=== PATIENT | male | born 1955 | race Caucasian/White ===

== ENCOUNTER 2021-09-26 14:01 | Outpatient (CLI) | payer MEDICARE, MEDICAID, SELFPAY ==
[2021-09-26 11:53] LABS: Basophils Percent Auto 0.6 % (0.2-1.2); Eosinophils Absolute Auto 0.1 K/mm3 (0-0.3); Eosinophils Percent Auto 1.7 % (0-4.4); Hematocrit 46.4 % (42.0-52.0); Hemoglobin 15.5 g/dL (14.0-18.0); Immature Granulocyte Absolute 0.01 K/mm3 (0.00-0.031); Immature Granulocyte Percent A 0.2 % (0-0.5); Immature Platelet Fraction Pct 4.3 % (0.9-11.2); Lymphocytes Percent Auto 21.5 % (18.3-44.2); Mean Corpuscular HGB Conc 33.4 g/dl (32-36); Mean Corpuscular Hemoglobin 30.1 pg (26-34); Mean Corpuscular Volume 90.1 fl (80-100); Mean Platelet Volume 10.6 fl (7.4-10.4); Monocytes Absolute Auto 0.5 K/mm3 (0.1-0.6); Monocytes Percent Auto 11.2 % (2.6-8.5); Neutrophils Percent Auto 64.8 % (45.5-73.1); Platelet Count Result 107 k/mm3 (150-375); Red Blood Count 5.15 M/mm3 (4.6-6.20); Red Cell Distribution Width 15.7 % (11.5-14.5); White Blood Count 4.7 K/mm3 (4.5-10.0)
[2021-09-26 12:35] LABS: Alanine Aminotransferase 54 U/L (4-50); Albumin Level 4.5 g/dL (3.5-5.1); Alkaline Phosphatase 102 U/L (38-126); Anion Gap 9 mmol/L (8-16); Aspartate Amino Transferase 46 U/L (17-59); Bilirubin,Total 0.9 mg/dL (0.2-1.3); Blood Urea Nitrogen 13 mg/dL (9-20); Calcium 9.2 mg/dL (8.4-10.2); Carbon Dioxide 26 mmol/L (22-30); Chloride 97 mmol/L (98-107); Estimated Glomerular Filt Rate > 60; Glucose 328 mg/dL (65-110); Potassium 4.4 mmol/L (3.4-5.0); Sodium 132 mmol/L (137-145)
[2021-09-26 13:09] LABS: Iron 104 ug/dL (49-181)
[2021-09-26 13:18] LABS: Percent Iron Saturation 22 % (20-50)
[2021-09-26 13:41] LABS: Folic Acid > 20.0 ng/mL (2.76->20)
[2021-09-30 10:07] LABS: Reference Lab Test Result Negative
== END 2021-09-26 14:02 | disposition home or self-care (01) ==
PROVIDERS: PCP Family Medicine; Visit Provider Internal Medicine Hematology & Oncology
DX: D69.59 Other secondary thrombocytopenia (principal)
CPT/HCPCS: 36415; 80053; 82607; 82728; 82746; 83540; 83550; 85025; 85055; 86023

== ENCOUNTER 2021-10-01 15:30 | Outpatient (CLI) | payer MEDICARE, MEDICAID, SELFPAY ==
--- NOTE | ~2021-10-01 | CT_ITS ---
EXAMINATION: CT knee LT wo con DATE: 10/01/2021 16:11 INDICATION: Peripheral arterial occlusive disease. TECHNIQUE: Computed tomography (CT) of the left knee was performed without intravenous contrast. Auto mated exposure control and iterative reconstruction technique were employed. The dose-length product was 409.23 mGy-cm. COMPARISON: None FINDINGS: Bone alignment is normal. No fracture. There is moderate osteoarthritis of medial compartme nt and mild osteoarthritis of lateral and patellofemoral compartments. No knee joint effusion. 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 IMPRESSION: 1. 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 2. Moderate left knee osteoarthritis. Reviewed, dictated and finalized at location A. ERCIAL BAKER HELPER
== END 2021-10-01 15:31 | disposition home or self-care (01) ==
LOC: ANHIMG 15:38
PROVIDERS: PCP Emergency Medicine; Visit Provider Emergency Medicine
DX: I70.202 Unspecified atherosclerosis of native arteries of extremities, left leg (principal); M17.12 Unilateral primary osteoarthritis, left knee; I72.4 Aneurysm of artery of lower extremity
CPT/HCPCS: 73700

== ENCOUNTER 2021-10-11 12:23 | Outpatient (CLI) | payer MEDICARE, MEDICAID, SELFPAY ==
--- NOTE | ~2021-10-11 | US_ITS ---
EXAMINATION: US aorta [facility] scrn DATE: 10/11/2021 13:11 INDICATION: Abdominal aortic aneurysm screening. TECHNIQUE: Grayscale, color Doppler, and pulsed Doppler images of the aorta and common iliac arteries were obtained. COMPARISON: None. FINDINGS: The aorta is normal in caliber. The right common iliac artery is normal in caliber. The left common i liac artery is normal in caliber. IMPRESSION: 1. No abdominal aortic aneurysm. Reviewed, dictated and finalized at location A. RIG DRILLER
== END 2021-10-11 12:24 | disposition home or self-care (01) ==
PROVIDERS: PCP Emergency Medicine; Visit Provider Emergency Medicine
DX: I73.9 Peripheral vascular disease, unspecified (principal); Z13.6 Encounter for screening for cardiovascular disorders
CPT/HCPCS: 76706

== ENCOUNTER 2022-06-11 15:54 | Outpatient (CLI) | payer MEDICARE, OTHER, SELFPAY ==
[2022-06-11 16:12] LABS: Basophils Percent Auto 0.7 % (0.2-1.2); Eosinophils Absolute Auto 0.1 K/mm3 (0-0.3); Eosinophils Percent Auto 2.4 % (0-4.4); Hemoglobin 16.7 g/dL (14.0-18.0); Immature Granulocyte Absolute 0.01 K/mm3 (0.00-0.031); Immature Granulocyte Percent A 0.2 % (0-0.5); Lymphocytes Absolute Auto 1.91 K/mm3 (0.9-3.2); Lymphocytes Percent Auto 32.4 % (18.3-44.2); Mean Corpuscular HGB Conc 34.8 g/dl (32-36); Mean Corpuscular Hemoglobin 33.9 pg (26-34); Mean Corpuscular Volume 97.4 fl (80-100); Mean Platelet Volume 9.3 fl (7.4-10.4); Monocytes Absolute Auto 0.6 K/mm3 (0.1-0.6); Monocytes Percent Auto 9.5 % (2.6-8.5); Neutrophils Absolute Auto 3.2 K/mm3 (1.3-6.7); Neutrophils Percent Auto 54.8 % (45.5-73.1); Platelet Count Result 141 k/mm3 (150-375); Red Blood Count 4.93 M/mm3 (4.6-6.20); Red Cell Distribution Width 14.6 % (11.5-14.5); White Blood Count 5.9 K/mm3 (4.5-10.0)
== END 2022-06-11 15:55 | disposition home or self-care (01) ==
LOC: ANHLAB 15:58
PROVIDERS: PCP Family Medicine; Visit Provider Internal Medicine Hematology & Oncology
DX: D69.59 Other secondary thrombocytopenia (principal)
CPT/HCPCS: 36415; 85025

== ENCOUNTER 2022-07-21 17:31 | Emergency (ER) | payer MEDICARE, MEDICAID, SELFPAY ==
--- NOTE | ~2022-07-21 | CT_ITS ---
EXAMINATION: CTA chest PE protocol DATE: 07/21/2022 22:16 INDICATION: Shortness of breath, hemoptysis TECHNIQUE: Computed tomography angiography (CTA) of the chest was performed with 100 mL Omnipaque-350 intravenous contrast timed to evaluate the pulmonary arteries. Coronal maximum intensity projection 3D-reconstructions were created by the technologist. The dose-length product (DLP) was 891.42 mGy-cm. Automated exposure control and iterative reconstruction technique were employed. COMPARISON: None. FINDINGS: Lung parenchyma and airways: Right peripheral lower lobe scar. Mild motion artifact.. Pleura: Unremarkable. Thoracic inlet, axillae and chest wall: Multiple fractured sternotomy wires and lower sternal nonunio n. Thoracic aorta: Moderate arch calcification. Mediastinum: Normal. Heart and pericardium: Cardiomegaly. Prior CABG. Coronary artery calcifications: Moderate. Upper abdomen: Cirrhosis. Cholelithiasis. Bones: No acute osseous finding. Pulmonary arteries: Study quality: Adequate. No pulmonary emboli detected. IMPRESSION: No CT evidence of acute pulmonary embolus. Chronic and incidental findings detailed above. Reviewed, dictated and finalized at location K. IMPRESSION: No CT evidence of acute pulmonary embolus. Chronic and incidental findings deta iled above.
--- NOTE | ~2022-07-21 | XR_ITS ---
EXAMINATION: XR chest 1V portable Exam Date/Time: 07/21/2022 20:25 CDT HISTORY: shortness of breath, coughing up bloody sputum, COPD Comparison: None available. RESULT: Lines, tubes, and devices: Multiple fractured sternotomy wires in stable position. Mediastinal surgi eamon clips. Lungs and pleura: Clear. Cardiomediastinal silhouette: Stable. Other: No acute osseous or upper abdominal finding. IMPRESSION: No acute cardiopulmonary process. Reviewed, dictated and finalized at location K.
[2022-07-21 18:04] VITALS: BP 152/91; PULSE 59; RESP 18; TEMP 36.4; O2SAT 97
--- NOTE | 2022-07-21 19:08 | PC.NURSE ---
Pt called for room placement, no answer.
--- NOTE | 2022-07-21 19:51 | ECG_ITS ---
Measurements Intervals [place] Rate: 61 P: 52 AR: 225 QRS: -51 QRSD: 134 T: 119 QT: 445 QTc: 448 Interpretive Statements SINUS RHYTHM WITH FIRST DEGREE AV BLOCK WITH OCCASIONAL SUPRAVENTRICULAR PREMATURE COMPLEXES INTRAVENTRICULAR CONDUCTION DELAY Electronically Signed On 07-22-2022 8:52:06 CDT by Malik Bernstein M.D.
[2022-07-21 19:56] VITALS: PULSE 60; RESP 20; O2SAT 94
[2022-07-21] MEDS: ALBUTEROL SULFATE NEB 2.5 MG/3 ML INH 5 MG INHALATION (20:04)
[2022-07-21] MEDS: IPRATROPIUM BR 0.02% INH SOLN 0.5 MG/2.5 ML VIAL INHALATION (20:04)
[2022-07-21 20:09] VITALS: PULSE 65; RESP 17
[2022-07-21 20:11] LABS: Basophils Percent Auto 0.6 % (0.2-1.2); Eosinophils Absolute Auto 0.1 K/mm3 (0-0.3); Eosinophils Percent Auto 1.9 % (0-4.4); Hematocrit 50.2 % (42.0-52.0); Hemoglobin 17.3 g/dL (14.0-18.0); Immature Granulocyte Absolute 0.01 K/mm3 (0.00-0.031); Immature Granulocyte Percent A 0.2 % (0-0.5); Lymphocytes Absolute Auto 1.99 K/mm3 (0.9-3.2); Lymphocytes Percent Auto 31.1 % (18.3-44.2); Mean Corpuscular HGB Conc 34.5 g/dl (32-36); Mean Corpuscular Hemoglobin 34.1 pg (26-34); Mean Platelet Volume 9.6 fl (7.4-10.4); Monocytes Absolute Auto 0.7 K/mm3 (0.1-0.6); Monocytes Percent Auto 10.3 % (2.6-8.5); Neutrophils Absolute Auto 3.6 K/mm3 (1.3-6.7); Neutrophils Percent Auto 55.9 % (45.5-73.1); Platelet Count Result 123 k/mm3 (150-375); Red Blood Count 5.07 M/mm3 (4.6-6.20); Red Cell Distribution Width 14.4 % (11.5-14.5); White Blood Count 6.4 K/mm3 (4.5-10.0)
[2022-07-21 20:18] VITALS: PULSE 59; RESP 13
[2022-07-21 20:21] LABS: INR 1.1; Partial Thromboplastin Time 29.5 SECONDS (22.3-36.8); Prothrombin Time 13.3 Seconds (11.1-14.7)
[2022-07-21 20:22] LABS: Lactic Acid Reflex 0.9 mmol/L (0.7-2.0)
[2022-07-21 20:25] LABS: Alanine Aminotransferase 46 U/L (6-50); Albumin Level 4.3 g/dL (3.5-5.1); Alkaline Phosphatase 84 U/L (38-126); Anion Gap 10 mmol/L (8-16); Aspartate Amino Transferase 41 U/L (17-59); Bilirubin,Total 0.8 mg/dL (0.2-1.3); Blood Urea Nitrogen 18 mg/dL (9-20); Calcium 8.8 mg/dL (8.4-10.2); Carbon Dioxide 25 mmol/L (22-30); Chloride 100 mmol/L (98-107); Estimated CRCL calculation 88 ml/min; Estimated Glomerular Filt Rate > 60; Glucose 93 mg/dL (65-110); Magnesium 2.2 mg/dL (1.6-2.3); Potassium 4.4 mmol/L (3.4-5.0); Sodium 135 mmol/L (137-145)
--- NOTE | 2022-07-21 20:27 | ED.GENADULT ---
HPI - General Adult General Chief complaint: Upper Respiratory Infection Stated complaint: coughing up blood Time Seen by Provider: 07/21/22 19:40 History of Present Illness HPI narrative: Patient is a 67-year-old gentleman who presents the emergency department with chief complaint of hemoptysis. Patient reports that he was coughing today and had some bloody sputum whenever he coughed. The patient states that the has history of COPD reports that he also has history of thrombocytopenia. Patient states that he has had no fevers no chills reports that he is concerned because he is on antiplatelet medications. Patient reports that he has history of cardiac disease and has stents in his heart. Patient also reports that he has history of an enlarged prostate and has had difficulty urinating lately Related Data Allergies Allergy/AdvReac Type Severity Reaction Status Date / Time No Known Allergies Allergy Unverified 04/11/20 10:06 Review of Systems Review of Systems: A 10 system review of systems was completed on the patient and is negative except for what is stated in the HPI. Nursing and ancillary documentation was reviewed. 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) use of insulin Overweight (03/31/16) RUQ abdominal pain Tobacco use disorder Type 2 diabetes mellitus with hyperglycemia Surgical History Surgical History (Updated 07/21/22 @ 20:31 by Stepan Vegas MD) Hx of CABG Family History Family History (System 04/11/20 @ 10:06 by Shena Armas) Mother Family history of chronic obstructive pulmonary disease Patient's mother is Father Family history of chronic obstructive pulmonary disease Patient's father is Other Hypertension Social History Social History (System 04/11/20 @ 10:06 by Shena Armas) Smoking status: Current every day smoker Alcohol intake: current Exam Narrative: GENERAL: Well-appearing, well-nourished, and in no acute distress. HEAD: Normocephalic, atraumatic. EYES: PERRLA and EOMI. ENT: Nares clear, no rhinorrhea or epistaxis. Mucous membranes moist. NECK: Supple. CHEST: Clear to auscultation. No respiratory distress. HEART: Regular rate and rhythm. No murmur heard. Normal peripheral pulses. ABDOMEN: Soft, nontender, nondistended, normal active bowel sounds. EXTREMITIES: Normal range of motion. No edema. Patient is wearing cock-up wrist splints on bilateral wrist SKIN: Warm, dry, no rash. NEURO: No focal deficits. Alert and oriented x3. PSYCH: Normal mood and affect. Course Course Emergency Course: CT chest showed no evidence of PE. Given the patient has had bloody sputum and has had a productive cough with history of COPD the patient is felt to be high risk for bacterial bronchitis. The patient was started on doxycycline the patient was discharged home to follow-up with his primary provider. Vital Signs Vital signs: Vital Signs Temperature 36.4 C L 07/21/22 18:04 Pulse Rate 59 L 07/21/22 18:04 Respiratory Rate 18 07/21/22 18:04 Blood Pressure 152/91 H 07/21/22 18:04 Pulse Oximetry 97 07/21/22 18:04 Oxygen Delivery Room Air 07/21/22 18:04 Temperature 36.4 C L 07/21/22 18:04 Pulse Rate 59 L 07/21/22 20:18 Respiratory Rate 13 07/21/22 20:18 Blood Pressure 152/91 H 07/21/22 18:04 Pulse Oximetry 94 07/21/22 19:56 Oxygen Delivery Room Air 07/21/22 19:56 Medical Decision Making Vital Signs Vital Signs: Vital Signs Temperature 36.4 C L 07/21/22 1
[2022-07-21 20:37] LABS: NT Pro B Type Natriuretic Pept 309 pg/mL (5-100); Troponin I 0.019 ng/mL (0.000-0.034)
[2022-07-21 20:52] LABS: Influenza A QL RT-PCR Negative (Negative); Influenza B QL RT-PCR Negative (Negative); SARS-CoV-2 RNA PCR Negative
[2022-07-21 21:54] LABS: Procalcitonin 0.1 ng/mL
== END 2022-07-21 23:37 | disposition home or self-care (01) ==
PROVIDERS: Emergency Provider Emergency Medicine; PCP Emergency Medicine
DX: J20.8 Acute bronchitis due to other specified organisms (principal); J44.0 Chronic obstructive pulmonary disease with (acute) lower respiratory infection; Z20.822 Contact with and (suspected) exposure to COVID-19; J44.9 Chronic obstructive pulmonary disease, unspecified; I10 Essential (primary) hypertension; E11.9 Type 2 diabetes mellitus without complications; M10.9 Gout, unspecified; E66.3 Overweight; Z68.32 Body mass index [BMI] 32.0-32.9, adult; Z95.1 Presence of aortocoronary bypass graft; F17.200 Nicotine dependence, unspecified, uncomplicated; Z79.4 Long term (current) use of insulin; I44.0 Atrioventricular block, first degree; I49.3 Ventricular premature depolarization; I45.9 Conduction disorder, unspecified
CPT/HCPCS: 36415; 71045; 71275; 80053; 83605; 83735; 83880; 84145; 84484; 85025; 85610; 85730; 87502; 93005; 94640; 99284; C9803; Q9967; U0003; U0005

== ENCOUNTER 2022-10-14 16:45 | Outpatient (CLI) | payer MEDICARE, MEDICAID, SELFPAY ==
[2022-10-14 17:31] LABS: Alanine Aminotransferase 39 U/L (6-50); Albumin Level 4.5 g/dL (3.5-5.1); Alkaline Phosphatase 74 U/L (38-126); Anion Gap 4 mmol/L (8-16); Aspartate Amino Transferase 39 U/L (17-59); Bilirubin,Total 0.8 mg/dL (0.2-1.3); Blood Urea Nitrogen 16 mg/dL (9-20); Calcium 9.1 mg/dL (8.4-10.2); Carbon Dioxide 28 mmol/L (22-30); Chloride 101 mmol/L (98-107); Estimated Glomerular Filt Rate > 60; Glucose 141 mg/dL (65-110); Potassium 4.3 mmol/L (3.4-5.0); Sodium 133 mmol/L (137-145); Uric Acid 6.7 mg/dL (3.5-8.5)
== END 2022-10-14 16:46 | disposition home or self-care (01) ==
LOC: ANHLAB 16:50
PROVIDERS: PCP Emergency Medicine; Visit Provider Podiatrist Foot & Ankle Surgery
DX: M10.9 Gout, unspecified (principal)
CPT/HCPCS: 36415; 80053; 84550

== ENCOUNTER 2023-01-20 09:33 | Outpatient (CLI) | payer MEDICARE, MEDICAID, SELFPAY ==
[2023-01-20 09:54] LABS: Eosinophils Absolute Auto 0.1 K/mm3 (0-0.3); Eosinophils Percent Auto 1.8 % (0-4.4); Hematocrit 47.3 % (42.0-52.0); Hemoglobin 16.5 g/dL (14.0-18.0); Immature Granulocyte Absolute 0.01 K/mm3 (0.00-0.031); Immature Granulocyte Percent A 0.3 % (0-0.5); Lymphocytes Absolute Auto 1.21 K/mm3 (0.9-3.2); Lymphocytes Percent Auto 30.7 % (18.3-44.2); Mean Corpuscular HGB Conc 34.9 g/dl (32-36); Mean Corpuscular Volume 100.4 fl (80-100); Mean Platelet Volume 9.9 fl (7.4-10.4); Monocytes Absolute Auto 0.5 K/mm3 (0.1-0.6); Monocytes Percent Auto 12.4 % (2.6-8.5); Neutrophils Absolute Auto 2.1 K/mm3 (1.3-6.7); Neutrophils Percent Auto 53.8 % (45.5-73.1); Platelet Count Result 97 k/mm3 (150-375); Red Blood Count 4.71 M/mm3 (4.6-6.20); Red Cell Distribution Width 14.4 % (11.5-14.5); White Blood Count 3.9 K/mm3 (4.5-10.0)
[2023-01-20 10:04] LABS: Blood Urea Nitrogen 14 mg/dL (8-26); Carbon Dioxide 30 mmol/L (22-30); Chloride 100 mmol/L (98-109); Estimated Glomerular Filt Rate > 60; Glucose 161 mg/dL (70-105); Ionized Calcium (POC) 1.15 mmol/L (1.11-1.31); Sodium 138 mmol/L (138-146)
[2023-01-20 12:43] LABS: Alanine Aminotransferase 55 U/L (6-50); Alkaline Phosphatase 89 U/L (38-126); Anion Gap 4 mmol/L (8-16); Aspartate Amino Transferase 71 U/L (17-59); Bilirubin,Total 0.7 mg/dL (0.2-1.3); Calcium 8.6 mg/dL (8.4-10.2); Carbon Dioxide 29 mmol/L (22-30); Chloride 103 mmol/L (98-107); Estimated Glomerular Filt Rate > 60; Glucose 155 mg/dL (65-110); Potassium 4.1 mmol/L (3.4-5.0); Sodium 136 mmol/L (137-145)
[2023-01-20 12:59] LABS: Blood Urea Nitrogen 15 mg/dL (9-20)
== END 2023-01-20 09:34 | disposition home or self-care (01) ==
PROVIDERS: PCP Emergency Medicine; Visit Provider Internal Medicine Hematology & Oncology
DX: D69.59 Other secondary thrombocytopenia (principal)
CPT/HCPCS: 36415; 80047; 80053; 85025

== ENCOUNTER 2023-07-10 11:02 | Outpatient (CLI) | payer MEDICARE, MEDICAID, SELFPAY ==
[2023-07-10 11:27] LABS: Basophils Percent Auto 0.7 % (0.2-1.2); Eosinophils Absolute Auto 0.1 K/mm3 (0-0.3); Eosinophils Percent Auto 1.9 % (0-4.4); Hematocrit 49.5 % (42.0-52.0); Hemoglobin 17.2 g/dL (14.0-18.0); Immature Granulocyte Absolute 0.01 K/mm3 (0.00-0.031); Immature Granulocyte Percent A 0.2 % (0-0.5); Lymphocytes Absolute Auto 1.04 K/mm3 (0.9-3.2); Lymphocytes Percent Auto 24.1 % (18.3-44.2); Mean Corpuscular HGB Conc 34.7 g/dl (32-36); Mean Corpuscular Hemoglobin 33.8 pg (26-34); Mean Corpuscular Volume 97.2 fl (80-100); Monocytes Absolute Auto 0.5 K/mm3 (0.1-0.6); Monocytes Percent Auto 12.5 % (2.6-8.5); Neutrophils Absolute Auto 2.6 K/mm3 (1.3-6.7); Neutrophils Percent Auto 60.6 % (45.5-73.1); Platelet Count Result 116 k/mm3 (150-375); Red Blood Count 5.09 M/mm3 (4.6-6.20); Red Cell Distribution Width 13.8 % (11.5-14.5); White Blood Count 4.3 K/mm3 (4.5-10.0)
[2023-07-10 11:33] LABS: Blood Urea Nitrogen 18 mg/dL (8-26); Carbon Dioxide 25 mmol/L (22-30); Chloride 102 mmol/L (98-109); Estimated Glomerular Filt Rate > 60; Glucose 98 mg/dL (70-105); Ionized Calcium (POC) 1.14 mmol/L (1.11-1.31); Sodium 138 mmol/L (138-146)
== END 2023-07-10 11:03 | disposition home or self-care (01) ==
LOC: ANHLAB 11:05
PROVIDERS: PCP Emergency Medicine; Visit Provider Internal Medicine Hematology & Oncology
DX: D69.59 Other secondary thrombocytopenia (principal)
CPT/HCPCS: 36415; 80047; 85025

== ENCOUNTER 2023-09-17 14:35 | Outpatient (CLI) | payer MEDICARE, MEDICAID, SELFPAY ==
[2023-09-17 15:30] LABS: Alanine Aminotransferase 42 U/L (6-50); Albumin Level 4.3 g/dL (3.5-5.1); Alkaline Phosphatase 76 U/L (38-126); Anion Gap 8 mmol/L (8-16); Aspartate Amino Transferase 50 U/L (17-59); Blood Urea Nitrogen 15 mg/dL (9-20); Calcium 8.6 mg/dL (8.4-10.2); Carbon Dioxide 23 mmol/L (22-30); Chloride 101 mmol/L (98-107); Estimated Glomerular Filt Rate > 60; Glucose 137 mg/dL (65-110); Sodium 132 mmol/L (137-145); Uric Acid 3.8 mg/dL (3.5-8.5)
== END 2023-09-17 14:36 | disposition home or self-care (01) ==
LOC: ANHLAB 14:41
PROVIDERS: PCP Emergency Medicine; Visit Provider Podiatrist Foot & Ankle Surgery
DX: L85.1 Acquired keratosis [keratoderma] palmaris et plantaris (principal)
CPT/HCPCS: 36415; 80053; 84550

== ENCOUNTER 2023-10-06 13:14 | Outpatient (CLI) | payer MEDICARE, MEDICAID, SELFPAY ==
--- NOTE | ~2023-10-06 | CT_ITS ---
CT Scan of the Chest without Contrast: Clinical Indication: Lung cancer screening, personal history of nicotine dependence Technique: Contiguous sections were acquired throughout the chest without intravenous contrast. Dose reduction technique was used on this scan by utilizing automated exposure control and iterative recon struction technique. The dose-length product (DLP) was 392.51 mGy-cm. COMPARISON: 07/21/2022 Findings: There is no evidence of any significant mediastinal, hilar or axillary lymphadenopathy. The mediastin al soft tissues appear normal. There are atherosclerotic calcifications of the aorta. There is no evidence of pleural or pericardial effusion. Pleural-based nodule/density at the right lower lobe is similar to prior exam. Images through the upper abdomen reveal nodular contour of the liver, suggestive of cirrhotic change. Impression: Lung RADS 2: Benign appearance. 12 month follow-up CT scan is recommended. Cirrhosis of the liver. Reviewed, dictated and finalized at [facility]. L ELECTRIFICATION ENGINEER Impression: Lung RADS 2: Benign appearance. 12 month follow-up CT scan is recommended. Cirrhosis of the liver.
== END 2023-10-06 13:15 | disposition home or self-care (01) ==
PROVIDERS: PCP Emergency Medicine; Visit Provider Emergency Medicine
DX: Z12.2 Encounter for screening for malignant neoplasm of respiratory organs (principal); K74.60 Unspecified cirrhosis of liver; R91.8 Other nonspecific abnormal finding of lung field; Z87.891 Personal history of nicotine dependence
CPT/HCPCS: 71271

== ENCOUNTER 2024-01-04 00:39 | Day surgery (SDC) | payer MEDICARE, MEDICAID, SELFPAY ==
--- NOTE | 2023-12-23 11:44 | PC.NURSE ---
Spoke with patient regarding medication PLAVIX. Pt. verbalizes understanding that the last dose of PLAVIX is to be taken on 12/30/2023 and the Endoscopist will instruct them when to restart after the procedure. Patient states he is on Aspirin 81mg po daily and asked if he should stop it and I instructed him he does not have to hold Aspirin.
--- NOTE | 2024-01-01 10:09 | PC.NURSE ---
Patient called the office and left a message that he cannot afford to purchase the Miralax prep and would like the gallon Jug he had for his previous colonoscopy. I will send in prescription for Golytely to pts preferred pharmacy and I went over the prep instructions with patient. He verbalizes understanding.
--- NOTE | 2024-01-01 11:28 | SUR.PREOP ---
Patient called regarding upcoming procedure. Reviewed preop instructions, appointment times, and procedure prep.
[2024-01-04 12:12] VITALS: BP 165/90; PULSE 61; RESP 20; TEMP 36.3; O2SAT 100; BMI 33.7
[2024-01-04] MEDS: LACTATED RINGERS 1,000 ML 150 ML IV CONT (12:25)
[2024-01-04 12:27] LABS: Glucose Point of Care 89 mg/dl (65-105)
--- NOTE | 2024-01-04 12:34 | WPDANESEPPF ---
Anes - Initial Pre Proc Eval Procedure: Operation Date: 01/04/24 13:30 Proposed Procedures p Esophagogastroduodenoscopy & Colonoscopy - Jesús Butler MD Date/Time: 01/04/24 12:34 Surgeon: Jesús Butler MD Pre Op Diagnosis: Blood in stool, Esophageal Varices Patient Data Age: 68 Gender: M Height: 1.83 m Weight: 113.1 kg Last Vital Signs Temp 97.4 F L 01/04/24 12:12 Pulse 61 01/04/24 12:12 Resp 20 01/04/24 12:12 BP 165/90 H 01/04/24 12:12 Pulse Ox 100 01/04/24 12:12 O2 Del Method Room Air 01/04/24 12:12 Allergies Allergy/AdvReac Type Severity Reaction Status Date / Time Penicillins Allergy Unknown Verified 01/04/24 12:10 Home Medications Medication Instructions Recorded Confirmed Type atorvastatin 10 mg tablet 10 mg PO DAILY 10/30/22 12/16/23 History clopidogrel 75 mg tablet 75 mg PO DAILY 10/30/22 12/16/23 History insulin lispro protamine-lispro 40 unit subcut BID 10/30/22 12/16/23 History 100 unit/mL (75-25) subcutaneous susp (Humalog Mix 75-25(U-100)Insuln) albuterol sulfate 2.5 mg/3 mL 2.5 mg continuous nebulization Q4H 12/16/23 12/16/23 History (0.083 %) solution for nebulization PRN Shortness Of Breath Or Wheezing albuterol sulfate 90 mcg/actuation 1 puff inhalation Q4-6H PRN 12/16/23 12/16/23 History aerosol inhaler Shortness Of Breath Or Wheezing carvedilol 6.25 mg tablet 3.125 mg PO BID 12/16/23 12/16/23 History colchicine 0.6 mg capsule 0.6 mg PO BID PRN GOUT 12/16/23 12/16/23 History febuxostat 40 mg tablet 40 mg PO DAILY 12/16/23 12/16/23 History gabapentin 300 mg capsule 1 mg PO Q8H PRN NERVE PAIN 12/16/23 12/16/23 History hydrocodone 5 mg-acetaminophen 325 1 tablet PO Q6H PRN Pain 12/16/23 12/16/23 History mg tablet nitroglycerin 0.4 mg sublingual 0.4 mg sublingual PRN PRN Chest 12/16/23 12/16/23 History tablet Pain sacubitril 24 mg-valsartan 26 mg 1 tablet PO BID 12/16/23 12/16/23 History tablet (Entresto) Laboratory Tests 01/04/24 12:18 POC Capillary Glucose 89 mg/dl (65-105) Patient hx anesthesia problems: none Family hx anesthesia problems: none Results Review: All pre-operative results and documents have been reviewed as part of the pre-operative evaluation. [facility] Past Medical History Medical History Bipolar disorder, unspecified Chronic obstructive pulmonary disease, unspecified Dietary counseling and surveillance (08/08/16) Encounter for current buttermaker use of antiplatelet drug Encounter for screening colonoscopy Essential (primary) hypertension Gallstones Gout, unspecified IDDM (insulin dependent diabetes mellitus) longterm (current) use of insulin Osteoporosis Overweight (03/31/16) RUQ abdominal pain Tobacco use disorder Type 2 diabetes mellitus with hyperglycemia Surgical History Surgical History History of carpal tunnel release History of cervical spinal surgery History of heart bypass surgery 5 way History of shoulder surgery biceps tendon repair Hx of CABG Family History Family History Mother Family history of chronic obstructive pulmonary disease Patient's mother is Father Family history of chronic obstructive pulmonary disease Patient's father is Other Hypertension Social History Social History Smoking packs per day: 1 Smoking cigarettes per day: 20.0 Smoking status: Current every day smoker Tobacco type: cigarettes Alcohol intake: former Substance use: current Substance use type: marijuana Lack of Transportation: No Lack of Food: Never True Current Housing: I Have Housing Concerned About Future Housing: No Difficulty Paying Gas/Electric Bills: No Diff
--- NOTE | 2024-01-04 12:57 | PM.HPGS ---
History of Present Illness History of Present Illness Consent: Risks, benefits, and alternatives have been discussed and questions answered. Patient agrees to proceed with procedure. Chief complaint: Blood in stool, Esophageal Varices Narrative: Julius Campos Jr. is a 68 year old male with history of cirrhosis and colon polyp 2020, needs egd and colonoscopy Review of Systems Constitutional: Constitutional: Denies headache(s) and Denies weakness Eyes: Eyes: Denies blurry vision ENT: Reports Normal hearing present, Denies headache(s) and Denies neck pain Cardiovascular: Cardiovascular: Denies chest pain and Denies dyspnea Respiratory: Respiratory: Denies dyspnea Gastrointestinal: Gastrointestinal: Reports no additional gastrointestinal complaints Genitourinary: Genitourinary: Denies dysuria Musculoskeletal: Musculoskeletal: Denies neck pain Integumentary/Breasts: Skin/Breast: Denies dry skin Neurologic: Reports Normal hearing present, Denies headache(s) and Denies weakness Psychiatric: Psychiatric: Denies anxiety Endocrine: Endocrine: Denies change in body appearance Hematologic/Lymphatic: Hematologic/Lymphatic: Denies easy bleeding Allergic/Immunologic: Allergic/Immunologic: Denies urticaria PMFSH Past Medical History Medical History (Updated 01/04/24 @ 12:59 by Jesús Butler MD) Bipolar disorder, unspecified Chronic obstructive pulmonary disease, unspecified Cirrhosis Colon polyp Dietary counseling and surveillance (08/08/16) Encounter for current intermodal customer service use of antiplatelet drug Encounter for screening colonoscopy Essential (primary) hypertension Gallstones Gout, unspecified IDDM (insulin dependent diabetes mellitus) 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 Osteoporosis Overweight (03/31/16) RUQ abdominal pain Tobacco use disorder Type 2 diabetes mellitus with hyperglycemia Surgical History Surgical History History of carpal tunnel release History of cervical spinal surgery History of heart bypass surgery 5 way History of shoulder surgery biceps tendon repair Hx of CABG Family History Family History Mother Family history of chronic obstructive pulmonary disease Patient's mother is Father Family history of chronic obstructive pulmonary disease Patient's father is Other Hypertension Social History Social History Smoking packs per day: 1 Smoking cigarettes per day: 20.0 Smoking status: Current every day smoker Tobacco type: cigarettes Alcohol intake: former Substance use: current Substance use type: marijuana Lack of Transportation: No Lack of Food: Never True Current Housing: I Have Housing Concerned About Future Housing: No Difficulty Paying Gas/Electric Bills: No Difficulty Paying for Meds: No Currently Unemployed: YES Education: Trade/Vocational Certificate Difficulty w/ Childcare or Family Care: No Living arrangements: alone Spiritual care concerns: No Meds Home Medications and Allergies Home Medications Medication Instructions Recorded Confirmed Type atorvastatin 10 mg tablet 10 mg PO DAILY 10/30/22 12/16/23 History clopidogrel 75 mg tablet 75 mg PO DAILY 10/30/22 12/16/23 History insulin lispro protamine-lispro 40 unit subcut BID 10/30/22 12/16/23 History 100 unit/mL (75-25) subcutaneous susp (Humalog Mix 75-25(U-100)Insuln) albuterol sulfate 2.5 mg/3 mL 2.5 mg continuous nebulization Q4H 12/16/23 12/16/23 History (0.083 %) solution for nebulization PRN Shortness Of Breath Or Wheezing albuterol sulfate 90 mcg/actuation 1 puff inhalation Q4-6H PRN 12/16/23 12/16/23 History aerosol inhaler Shortness Of Breath Or Wheezing carvedilol 6.25 mg tablet 3.125 mg PO BID 12/16/23 12/16/23 Hi
--- NOTE | 2024-01-04 13:11 | SUR.OPER ---
EGD START: 1303; END: 1306. COLONOSCOPY START: 1310; END: 1330.
[2024-01-04 13:36] VITALS: BP 99/64; PULSE 53; RESP 21; O2SAT 98
[2024-01-04 13:46] VITALS: BP 99/64; PULSE 62; RESP 21; O2SAT 93
[2024-01-04 13:56] VITALS: BP 110/68; PULSE 60; RESP 18; O2SAT 93
[2024-01-04 14:07] LABS: Glucose Point of Care 79 mg/dl (65-105)
== END 2024-01-04 14:24 | disposition home or self-care (01) ==
PROVIDERS: PCP Emergency Medicine; Visit Provider Internal Medicine Gastroenterology
PROC: 0DJ08ZZ Inspection of Upper Intestinal Tract, Via Natural or Artificial Opening Endoscopic (ICD-10-PCS; CPT 43235; principal; 2024-01-04 13:30)
DX: K29.70 Gastritis, unspecified, without bleeding (principal); K31.89 Other diseases of stomach and duodenum; K64.8 Other hemorrhoids; K57.30 Diverticulosis of large intestine without perforation or abscess without bleeding; D12.0 Benign neoplasm of cecum; D12.3 Benign neoplasm of transverse colon; D12.4 Benign neoplasm of descending colon; I10 Essential (primary) hypertension; E11.65 Type 2 diabetes mellitus with hyperglycemia; J44.9 Chronic obstructive pulmonary disease, unspecified; F31.9 Bipolar disorder, unspecified; K74.60 Unspecified cirrhosis of liver; F17.210 Nicotine dependence, cigarettes, uncomplicated; F12.90 Cannabis use, unspecified, uncomplicated; E66.9 Obesity, unspecified; Z68.33 Body mass index [BMI] 33.0-33.9, adult; Z79.02 Long term (current) use of antithrombotics/antiplatelets; Z79.4 Long term (current) use of insulin; Z79.51 Long term (current) use of inhaled steroids; Z79.891 Long term (current) use of opiate analgesic; Z98.1 Arthrodesis status; Z95.1 Presence of aortocoronary bypass graft; Z86.010 Personal history of colon polyps
CPT/HCPCS: 43239; 45385; 82948; 88305; J2001; J2371; J2704; J7120

== ENCOUNTER 2024-02-24 15:41 | Outpatient (CLI) | payer MEDICARE, MEDICAID, SELFPAY | END 2024-02-24 15:42 | disposition home or self-care (01) | LOC: ANHLAB 15:43 | PROVIDERS: PCP Emergency Medicine; Visit Provider Podiatrist Foot & Ankle Surgery | DX: B35.1 Tinea unguium (principal) | CPT/HCPCS: 36415 ==

== ENCOUNTER 2024-08-04 13:40 | Outpatient (CLI) | payer MEDICARE, MEDICAID, SELFPAY ==
[2024-08-04 13:54] LABS: Basophils Absolute Auto 0.1 K/mm3 (0.0-0.1); Basophils Percent Auto 1.2 % (0.2-1.2); Eosinophils Absolute Auto 0.1 K/mm3 (0-0.3); Eosinophils Percent Auto 2.6 % (0-4.4); Hematocrit 45.9 % (42.0-52.0); Immature Granulocyte Absolute 0.01 K/mm3 (0.00-0.031); Immature Granulocyte Percent A 0.2 % (0-0.5); Lymphocytes Absolute Auto 1.13 K/mm3 (0.9-3.2); Mean Corpuscular HGB Conc 34.9 g/dl (32-36); Mean Corpuscular Volume 100.4 fl (80-100); Mean Platelet Volume 9.9 fl (7.4-10.4); Monocytes Absolute Auto 0.6 K/mm3 (0.1-0.6); Monocytes Percent Auto 15.3 % (2.6-8.5); Neutrophils Absolute Auto 2.3 K/mm3 (1.3-6.7); Neutrophils Percent Auto 53.7 % (45.5-73.1); Platelet Count Result 93 k/mm3 (150-375); Red Blood Count 4.57 M/mm3 (4.6-6.20); Red Cell Distribution Width 14.6 % (11.5-14.5); White Blood Count 4.2 K/mm3 (4.5-10.0)
[2024-08-04 16:33] LABS: Anion Gap 9 mmol/L (4-12); Blood Urea Nitrogen 11 mg/dL (9-20); Calcium 8.6 mg/dL (8.4-10.2); Carbon Dioxide 27 mmol/L (22-30); Chloride 98 mmol/L (98-107); Estimated Glomerular Filt Rate > 60; Glucose 157 mg/dL (65-110); Potassium 4.1 mmol/L (3.4-5.0); Sodium 134 mmol/L (137-145)
== END 2024-08-04 13:41 | disposition home or self-care (01) ==
LOC: ANHLAB 13:42
PROVIDERS: PCP Emergency Medicine; Visit Provider Internal Medicine Hematology & Oncology
DX: D69.59 Other secondary thrombocytopenia (principal)
CPT/HCPCS: 36415; 80048; 85025

== ENCOUNTER 2024-11-15 11:26 | Outpatient (CLI) | payer MEDICARE, SELFPAY ==
--- NOTE | ~2024-11-15 | CT_ITS ---
EXAMINATION:CT lung screening DATE: 11/15/2024 12:03 INDICATION: Tobacco use. Current smoker with 52 pack year history. TECHNIQUE: Computed tomography (CT) of the chest was performed without intravenous contrast. Automate d exposure control and iterative reconstruction technique were employed. The dose-length product (DLP ) was 514.81 mGy-cm. COMPARISON: Chest CT 10/06/2023, 07/21/22 FINDINGS: There is mild emphysema. There is mild atelectasis bilaterally. There is a 14 mm nodule in right lower lobe, stable from 07/21/22. No pleural effusion. The heart size is normal. There are coron brandi artery calcifications. There are changes of coronary artery bypass grafting. No pericardial effus ion. The liver demonstrates surface nodularity, consistent with cirrhosis. The gallbladder is distend ed, likely secondary to fasting. There is mild bilateral gynecomastia. There is moderate thoracic spo ndylosis. IMPRESSION: 1. Lung-RADS category 2S: Benign appearance or behavior. Continue annual screening with noncontrast l ow-dose chest CT in 12 months. 2. Cirrhosis of the liver. Reviewed, dictated and finalized at location [facility] IMPRESSION: 1. Lung-RADS category 2S: Benign appearance or behavior. Continue annual screen ing with noncontrast low-dose chest CT in 12 months. 2. Cirrhosis of the liver.
== END 2024-11-15 11:27 | disposition home or self-care (01) ==
PROVIDERS: PCP Emergency Medicine; Visit Provider Emergency Medicine
DX: Z12.2 Encounter for screening for malignant neoplasm of respiratory organs (principal); Z87.891 Personal history of nicotine dependence; K76.0 Fatty (change of) liver, not elsewhere classified
CPT/HCPCS: 71271

== ENCOUNTER 2025-03-12 04:19 | Inpatient (IN) | payer MEDICARE, SELFPAY ==
[2025-03-12] VITALS (71 sets, daily range): BP systolic 66–132; BP diastolic 46–95; PULSE 46–92; RESP 11–23; TEMP 36.4–37; O2SAT 90–100; BMI 38.3
--- NOTE | ~2025-03-12 | XR_ITS ---
Portable chest x-ray Comparison: 03/12/2025 Clinical History: Pneumonia Findings: Right IJ line in place. There is mild bibasilar haziness. Cardiomediastinal silhouette is stable. Bones and soft tissues are unremarkable. Impression: Probable mild bibasilar pulmonary edema. Correlate clinically for pneumonia. Right IJ line. Reviewed, dictated and finalized at [facility]. Impression: Probable mild bibasilar pulmonary edema. Correlate clinically for pneumonia. Right IJ line.
--- NOTE | ~2025-03-12 | CT_ITS ---
EXAMINATION: CT brain wo con DATE: 03/12/2025 14:32 INDICATION: AMS . TECHNIQUE: Computed tomography (CT) of the head was performed without intravenous contrast. The mA wa s adjusted according to patient size. Iterative reconstruction technique was employed. The dose-lengt h product was 605.33 mGy-cm. COMPARISON: None. FINDINGS: No acute intracranial hemorrhage or extra-axial fluid collection. No hydrocephalus, mass, or herniation. No acute ischemic infarct. Unremarkable dural venous sinus attenuation. No acute osseous abnormality. Left mastoid fluid, the remaining aerated spaces are clear. Atherosclerotic intracranial calcifications. Mild atrophy and chronic white matter change. IMPRESSION: No acute intracranial process. Reviewed, dictated and finalized at location K.
--- NOTE | ~2025-03-12 | CT_ITS ---
EXAMINATION: CT chest abdomen pelvis w con DATE: 03/12/2025 7:15 CDT INDICATION: Sepsis TECHNIQUE: Computed tomography (CT) of the chest, abdomen, and pelvis was performed without intraveno us contrast. The dose-length product was 1958.08 mGy-cm. Automated exposure control and iterative rec onstruction technique were employed. COMPARISON: Comparison to multiple prior studies sequentially, with oldest reviewed study dated 07/21. FINDINGS: CHEST CT: There is atherosclerosis. Heart size normal. No significant pleural or pericardial effusion. No thora cic lymphadenopathy. There is a stable 12 mm pleural-based right lower lobe nodule. There is a new cl uster of nodules in the right upper lobe, largest measuring 8 mm. There is lingular airspace disease, compatible with pneumonia. There is dependent atelectasis. No endobronchial lesions. Status post med adriana sternotomy for CABG. ABDOMEN/PELVIS CT: Cirrhosis of the liver. Moderate ascites. There is diffuse subcutaneous edema. There is atheroscleros is of the aorta. The spleen, pancreas, adrenal glands and right kidney are unremarkable. Small subcen timeter hypodensity left kidney, most likely benign cyst. There are mildly prominent lymph nodes ana g the lesser curvature of the stomach, likely reactive. Mild diffuse thickening of the stomach which may be due to underdistention or gastritis. Gallbladder is present. No free air. Pedraza catheter prese nt in the bladder. There is atherosclerosis of the aorta without aneurysm. Moderate thoracic and kleber re lumbar spondylosis with scoliosis. IMPRESSION: 1. Lingular airspace disease, compatible with pneumonia. New nodular densities right upper lobe may a lso be infectious/inflammatory, although metastatic disease not excluded. 2: Stable 12 mm pleural-based right lower lobe nodule, likely benign. 3: Cirrhosis of the liver with moderate ascites. Reviewed, dictated and finalized at location A. IMPRESSION: 1. Lingular airspace disease, compatible with pneumonia. New nodular densities right upper lobe may also be infectious/inflammatory, although metastatic disea se not excluded. 2: Stable 12 mm pleural-based right lower lobe nodule, likely benign. 3: Cirrhosis of the liver with moderate ascites.
--- NOTE | ~2025-03-12 | US_ITS ---
EXAMINATION: US paracentesis abd w/image DATE: 03/13/2025 15:20 INDICATION: Abdominal distention. Ascites. TECHNIQUE: The procedure and its risks and benefits were discussed with the patient. Potential risks discussed included bleeding and infection. The skin was prepped and draped in sterile fashion. 1% lid ocaine was used for local anesthesia. Under ultrasound guidance, a 5 Fr catheter with trochar was adv anced into the ascites in the right lower quadrant. Fluid was aspirated into vacuum bottles. The cath eter was removed, and a dressing was applied. There were no immediate complications. FINDINGS: Ultrasound images demonstrate ascites and the catheter within the fluid. IMPRESSION: 1. Successful ultrasound-guided paracentesis yielding 5000 mL of yellow fluid. Reviewed, dictated and finalized at location [facility].
--- NOTE | ~2025-03-12 | XR_ITS ---
XR chest port-a-cath/central 03/12/2025 08:38 Indication: Central line placement Procedure: AP portable chest Comparison: Comparison to multiple prior studies sequentially, with oldest reviewed study dated 11/2013. Findings: Status post median sternotomy for CABG. Central line tip in the caudal aspect of the SVC. C ardiomegaly with interstitial edema. No pleural effusion. No pneumothorax. Impression: 1: Cardiomegaly with mild interstitial edema. Reviewed, dictated and finalized at location A. Impression: 1: Cardiomegaly with mild interstitial edema.
--- OUTSIDE RECORDS SUMMARY | 2025-03-12 04:41 | XMS_ITS | Clinical Summary ---
Author Organization [facility] Address [address] [place] [address] Care Team Providers Care Hand Molder And Caster Name Role Phone Enmanuel Perez DO Unavailable Cholo Mcmahon MD Primary Care Provider [phone] Source Comments [facility],non-owned Affiliates and Associated Physician Practices is amultiple site organization consisting of ambulatory clinics and hospital sitesin [place], [place]. This disclosure is being madepursuant to the Care Everywhere program and may not contain all information available regarding this patient. Last updated 18.[facility] Allergies Active Allergy Reactions Criticality Noted Date Comments Codeine Nausea and/or Vomiting Low 03/14/2021 Medications * Be aware that medications may not be up to date on this document. Alwaysverify current medications with the patient. LISINOPRIL PO Take by mouth. A ctive AMLODIPINE BESYLATE PO Take by mouth. Act latoya methylPREDNISo lone (MEDROL DOSEPAK) 4 MG tablet 1 Packet 0 3 Active Additional Information Patient not taking.Reported on 11/28/2022 clopidogrel (PLAVIX) 75 MG tablet 2 Active dicyclomine (BENTYL) 10 MG capsule 2 Active omeprazole (PRILOSEC) 20 MG capsule Take 2 (two) capsules by mouth once daily Active aspirin (ASPIRIN) 81 MG chew tablet Take 1 (one) tablet by mouth once daily Active atorvastatin (LIPITOR) 10 MG tablet atorvastatin 10 mg tablet Active carvedilol (COREG) 6.25 MG tablet 2 Active ENTRESTO 24-26 MG tablet 2 Active HUMALOG MIX 75/25 KWIKPEN pen 2 Active ergocalciferol (DRISDOL) 1.25 MG (86442 UT) capsule Take 1 (one) capsule by mouth every 7 days Active Cholecalcifero l 25 MCG (1000 UT) Take 1 (one) tablet by mouth once daily Active ferrous sulfate 325 (65 FE) MG tablet Take 1 (one) tablet by mouth once daily Active Multiple Vitamins-Sales Operations Lead als (HM COMPLETE MEN PO) Active B Complex Vitamins (VITAMIN B COMPLEX PO) Active Turmeric 500 MG Active albuterol (Proventil;Daniel tolin) (2.5 MG/3ML) 0.083% nebulizer solution INHALE 3 ML 4 TIMES A DAY BY NEBULIZATION ROUTE NEEDED. 2 Active nitroGLYCERIN (Nitrostat) 0.4 MG tablet nitroglycerin 0.4 mg tablet, sublingual 3 Active DULoxetine (Cymbalta) 30 MG capsule Take 1 (one) capsule by mouth once daily 14 capsule 3 Active DULoxetine (Cymbalta) 60 MG capsule Take 1 (one) capsule by mouth once daily 90 capsule 3 3 Active Active Problems Problem Noted Date Diagnosed Date Acute bronchitis 02/23/2023 Arthralgia 02/23/2023 Asthma without status asthmaticus 02/23/2023 Carpal tunnel syndrome 02/23/2023 Chronic sinusitis 02/23/2023 Encounter for issue of repeat prescription 02/23 Hyperventilation 02/23/2023 Renal colic 02/23/2023 Anxiety 07/25/2022 Arthritis 07/25/2022 History of angina 07/25/2022 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 CHF (congestive heart failure) 09/16/2021 Tobacco use 09/16/2021 Hyperlipidemia 10/17/2020 Atherosclerosis of [place] co ronary artery of [place] heart with unstable angina pectoris 08/31/2019 Overview (07/25/2022): CAD (coronary artery disease) Added automatically from request for surgery [id number] Calculus of gallbladder without cholecystitis Chest pain 08/10/2019 Gastroesophageal reflux disease 08/10/2019 Dyslipidemia 08/10/2019 Hypertension 08/10/2019 Moderate obesity 08/10/2019 Generalized ischemic myocardial dysfunction 04/24 Nausea 04/13/2019 Chronic back pain 01/28/2018 Gout 01/28/2018 Chronic obstructive pulmonary disease 01/28/2018 History of substance abuse 01/28/2018 Paranoid schizophrenia 01/28/2018 Diabetes mellitus 01/28/2018 History of coronary artery bypass surgery 2013 Overview (07/25/2022): Hx of CABG Neck pain 01/25/2013 Pulmonary atelectasis 01/26/1995 Immunizations Immunization Administration Dates Next Due Crocodile Gold primary monoval ent 12+ yr 0.3mL Purple cap 03/14/2021,02/23/2021 INFLUENZA VACCINE 10/15/2021 INFLUENZA VACCINE, QUADR. 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 Gender Identity Not on file Sexual Orientation Not on file Last Filed Vital Signs Vital Sign Reading Time Taken Comments Blood Pressure 145/97 11/28/2022 10:43 AM SUPERVIS[employer]DER[employer] Pulse 81 11/28/2022 10:43 AM [employer]VIS[employer]DER[employer] Temperature 36.3 C (97.4 F) 11/28/2022 10:43 AM SUPERVISOR SOLDERING Respiratory Rate - - Oxygen Saturation 96% 11/28/2022 10: 43 AM SUPERVISOR SOLDERING Inhaled Oxygen Concentration - - Weight 116.4 kg (256 lb 9.6 oz) 023 10:43 AM SUPERVIS[employer]DERING Height 182.9 cm (6') 11/28/2022 10:43 AM SUPERVIS[employer]DERING Body Mass Index 34.8 11/28/2022 10:43 AM SUPERVISOR [employer]DERING Plan of Treatment Health Maintenance Due Date Last Done Comments COLON MONITORING 1954 COLONOSCOPY - COLON CA SCREENING 1954 CT COLONOGRAPHY - COLON CA SCREENING 1954 FIT - COLON CA SCREENING 1954 FLEX SIG - COLON CA SCREENING 1954 HEPATITIS C SCREENING 02/08/1972 DTAP/TDAP/TD VACCINES (1 - Tdap) 1973 ZOSTER VACCINE (1 of 2) 02/13/2004 Respiratory Syncytial Virus (RSV) Vaccine Pt: or over 60 yrs (1 - Risk 60-74 years 1-dose series) 2014 DIABETES-SERUM CREATININE 08/11/20202018, 08/11/2019, 08/10/2019, Additional history exists DIABETES RETINOPATHY SCREENING 07/25/2022 DIABETES-FOOT EXAM WITH MONOFILAMENT 07/25/2022 DIABETES-HGB A1C 05/28/2023 11/28/2022, 07/2022, 02/14/2022, Additional history exists COLOGUARD (AGES 45-75) - COLON CA SCREENING 07/17/2023 07/17/2020 Colorectal Cancer Screening 07/17/2023 COVID-19 VACCINE (3 - season) 2024 03/14/2021, 02/23/2021 PNEUMOCOCCAL VACCINE 50+ (3 of 3 - PCV20 or PCV21) 08/11/2024 08/11/2019, 08/05/2017 DEPRESSION SCREENING 11/23/2024 DIABETES - URINE PROTEIN SCREENING 11/23/2024 MEDICARE AWV CALENDAR YEAR 2024 INFLUENZA VACCINE (Season Ended) 2025 10/15/2021, 09/30/2019, 09/23/2018, Additional history exists AAA SCREENING Completed 05/10/2019 HEPATITIS B VACCINE Aged Out No longe r eligible based on patient's age to complete this topic HIB VACCINE Aged Out No longer eligi ble based on patient's age to complete this topic HPV VACCINE Aged Out No longer eligi ble based on patient's age to complete this topic MENINGOCOCCAL (Group B) VACCINE SHARED DECISION-MAKING Aged Out No longer eligible based on patient's age to complete this topic MENINGOCOCCAL GROUPS A/C/Y/W VACCINE Aged Out No longer eligible based on patient's age to complete this topic Procedures Procedure Name Priority Date/Time Associated Diagnosis Comments HEMOGLOBIN A1C Routine 11/28/2022 12:30 PM [employer] Neuropathy from Last 3 Months or Most Recently Relevant to Health Maintenance Results * (ABNORMAL) HEMOGLOBIN A1C (11/28/2022 12:30 PM SUPERVIS[employer]DERING) Hemoglobin A1c 6.2(H) <=5.6 % 11/28/2022 3:11 PM [employer]VIS[employer]DERING [facility] Estimated Average Glucose 131 mg/dL 11/28/2022 3:11 PM [facility] Comment: HbA1c Interpretation: Normal : < 5.7% Pre-diabetes: 5.7-6.4% Diabetes: Equal to or greater than 6.5% Test results diagnostic of diabetes should be repeated for confirmation. Treatment target values recommended by ADA and other clinical organizations should be used to evaluate metabolic control in patients. Reference: [place] [employer], Standards of Care in Diabetes -2020 In patients 70 years and older consider HbA1c target range of 7.0-7.5% (Reference: Nghia Summers et al. JAMDA. 2012) The Sebia assay for the measurement of HbA1c is a National Glycohemoglobin Standardization Program (NGSP) certified method. Blood BLOOD SPECIMEN / Unknown Lab Venipuncture / Unknown 11/28/2022 12:30 PM [employer]ING 11/28/2022 1:19 PM [employer] Tarsha Fairchild MD LAB - CHEMISTRY ORDERABLES Final Result Performing Organization Address City/State/[facility] Co de Phone Number [facility] [address] [place] [address], [facility] [phone] from Last 3 Months or Most Recently Relevant to Health Maintenance Insurance MEDICAID - OUT OF STATE [facility] MANAGED MEDICARE ADV [facility] MANAGED MEDICARE ADV [place] [facility] MANAGED MEDICARE ADV [place] [facility] [place] [address] MEDICA[place] [facility] MANAGED MEDICARE ADV [place] [facility] MANAGED MEDICARE ADV [place] [facility] [place] [address] Care Teams Hand Molder And Caster Relationship Specialty Start Date End Date Cholo Mcmahon MD [address] [place] [id number] PCP - General 08/14/21 Enmanuel Perez DO Orthopedic Surgery 01/25/13
--- OUTSIDE RECORDS SUMMARY | 2025-03-12 04:41 | XMS_ITS | Continuity of Care Document ---
Author Organization [facility] Address [address] [place] [address] [place] [address] Phone Care Team Providers Care Marketing Rotation Associate Name Role Phone Giuliano Isbell MD Unavailable Unavailable Allergies, Adverse Reactions, Alerts Substance Reaction Status Criticality No Known Allergies Active No Inform ation Medications Medication Instructions Dosage Effective Dates (start - stop) Status Comments Coreg 3.125 mg tablet take 1 tablet by oral route 2 times every day with food 3.125 MG - Active hydrocodone 10 mg-acetaminophen 325 mg tablet take 1 by Oral route 2 times every day as needed 1 - Active PRN for pain, avoid driving or operate machines lidocaine 5 % topical patch apply 1 patch by transdermal route every day (May wear up to 12hours.) 1.00 patch - Active sildenafil 50 mg tablet take 1 tablet by oral route every day as directe as needed 50 MG - Active take one orally about one hour before activity, max 1/24 hours Humalog Mix 75-25 KwikPen U-100 insulin 100 unit/mL subcutaneous pen inject by subcutaneous route per prescriber's instructions. Insulin dosing requires individualization. 0.00 - Active 40 units SC B ID after breakfast and dinner, please disp two box of total 10 pens nebulizers use every 4 hours PRN for sob as needed - Active albuterol sulfate 2.5 mg/3 mL (0.083 %) solution for nebulization inhale 3 milliliter by nebulization route every 6 hours 2.5 MG - Active PRN for sob albuterol sulfate HFA 90 mcg/actuation aerosol inhaler inhale 1 puff by inhalation route every 4 - 6 hours as needed as needed 1 puff - Active PRN for sob Spiriva with HandiHaler 18 mcg and inhalation capsules inhale by inhalation route every day the contents of one capsule (18 mcg) using 2 inhalations via handihaler 0.00 - Active Lipitor 80 mg tablet take 1 tablet by oral route every day 80 MG - Active Plavix 75 mg tablet take 1 tablet by oral route every day 75 MG - Active Entresto 24 mg-26 mg tablet take 1 tablet by oral route 2 times every day 1.00 tablet - Active Procedures Procedure Date PREV VISIT, EST, 65 & OVER OFFICE/OUTPATIENT VISIT, EST OFFICE/OUTPATIENT VISIT, EST OFFICE/OUTPATIENT VISIT, EST OFFICE/OUTPATIENT VISIT, EST OFFICE/OUTPATIENT VISIT, EST OFFICE/OUTPATIENT VISIT, EST OFFICE/OUTPATIENT VISIT, EST OFFICE/OUTPATIENT VISIT, EST OFFICE/OUTPATIENT VISIT, EST OFFICE/OUTPATIENT VISIT, EST OFFICE/OUTPATIENT VISIT, EST OFFICE/OUTPATIENT VISIT, EST OFFICE/OUTPATIENT VISIT, EST OFFICE/OUTPATIENT VISIT, EST OFFICE/OUTPATIENT VISIT, EST OFFICE/OUTPATIENT VISIT, EST OFFICE/OUTPATIENT VISIT, EST OFFICE/OUTPATIENT VISIT, EST OFFICE/OUTPATIENT VISIT, EST OFFICE/OUTPATIENT VISIT, EST OFFICE/OUTPATIENT VISIT, EST OFFICE/OUTPATIENT VISIT, EST OFFICE/OUTPATIENT VISIT, EST OFFICE/OUTPATIENT VISIT, EST OFFICE/OUTPATIENT VISIT, EST OFFICE/OUTPATIENT VISIT, EST OFFICE/OUTPATIENT VISIT, NEW Advance Directives Directive Yes / No Effective Date File Name No Information Encounters Encounter Description Practice Location Reason(s) For Visit Diagnoses Date Provider Providers Copied on Encounter PREV VISIT, EST, 65 & OVER [facility], [address], [place], [place], [id number], [place] tel:[phone] [facility] physical (chief complaint) Encounter for general adult medical examination without abnormal findings 5 Sukhi Nobles. [address], [place], [place], [address] , [place]. tel:[phone] OFFICE/OUTPA TIENT VISIT, [facility], [address], [place], [place], [address], [place] tel:[phone] [facility] pain (chief complaint) ED (chief complaint) Chronic pain syndromeMale erectile dysfunction, unspecified 5 Sukhi Nobles. [address], [place], [place], [address] , [place]. tel:[phone] OFFICE/OUTPA TIENT VISIT, [facility], [address], [place], [place], [address], [place] tel:[phone] [facility] pain (chief complaint) abscess1 (chief complaint) tobacco1 (chief complaint) liver cirrhosis1 (chief complaint) Chronic pain syndromeNonalcoholi c steatohepatitis (KHAN)Centrilobular emphysemaCellulitis of groin 5 Sukhi Nobles. [address], [place], [place], [address] , [place]. tel:[phone] OFFICE/OUTPA TIENT VISIT, [facility], [address], [place], [place], [address], [place] tel:[phone] [facility] carpal tunnel1 (chief complaint) pain (chief complaint) liver1 (chief complaint) Chronic pain syndromeAlcoholic hepatic cirrhosis w/o ascitesCarpal tunnel syndrome, bilateral upper limbsTobacco use 4 Sukhi Nobles. [address], [place], [place], [address] , [place]. tel:[phone] OFFICE/OUTPA TIENT VISIT, [facility], [address], [place], [place], [address], [place] tel:[phone] [facility] pain (chief complaint) Chronic pain syndrome 4 Isbell Giuliano. [address], [place], [place], [address] , [place]. tel:[phone] OFFICE/OUTPA TIENT VISIT, [facility], [address], [place], [place], [address], [place] tel:[phone] [facility] abscess1 (chief complaint) Cellulitis of groin 4 Isbell Giuliano. [address], [place], [place], [address] , [place]. tel:[phone] OFFICE/OUTPA TIENT VISIT, [facility], [address], [place], [place], [address], [place] tel:[phone] [facility] pain (chief complaint) Chronic pain syndrome 4 Isbell Giuliano. [address], [place], [place], [address] , [place]. tel:[phone] OFFICE/OUTPA TIENT VISIT, [facility], [address], [place], [place], [address], [place] tel:[phone] [facility] pain (chief complaint) liver1 (chief complaint) platelet1 (chief complaint) HLP (chief complaint) Nonalcoholic steatohepatitis (KHAN)Chronic pain syndromeThrombocyto peniaMixed hyperlipidemia 4 Isbell Giuliano. [address], [place], [place], [address] , [place]. tel:[phone] OFFICE/OUTPA TIENT VISIT, [facility], [address], [place], [place], [address], [place] tel:[phone] [facility] cough1 (chief complaint) COPD1 (chief complaint) pain (chief complaint) cirrhosis1 (chief complaint) Chronic pain syndromeCentrilobul ar emphysemaNonalcohol ic steatohepatitis (KHAN)Acute bronchitis 4 Isbell Giuliano. [address], [place], [place], [address] , [place]. tel:[phone] OFFICE/OUTPA TIENT VISIT, [facility], [address], [place], [place], [address], [place] tel:[phone] [facility] pain (chief complaint) DM (chief complaint) carpal tunnel1 (chief complaint) CAD (chief complaint) Chronic pain syndromeType 2 diabetes mellitus with diabetic nephropathyCAD of alturas coronary artery without angina pectorisCarpal tunnel syndrome, bilateral upper limbs 4 Isbell Giuliano. [address], [place], [place], [address] , [place]. [phone] OFFICE/OUTPA TIENT VISIT, [facility], [address], [place], [place], [address], [place] tel:[phone] [facility] pain (chief complaint) Chronic pain syndrome 4 Isbell Giuliano. [address], [place], [place], [address] , [place]. tel:[phone] OFFICE/OUTPA TIENT VISIT, [facility], [address], [place], [place], [address], [place] tel:[phone] [facility] DM (chief complaint) pain (chief complaint) Type 2 diabetes mellitus with diabetic nephropathyChronic pain syndrome 4 Sukhi Nobles. [address], [place], [place], [address] , [place]. tel:[phone] OFFICE/OUTPA TIENT VISIT, [facility], [address], [place], [place], [address], [place] tel:[phone] [facility] shoulder pain1 (chief complaint) Pain in left shoulder 4 Isbell Giuliano. [address], [place], [place], [address] , [place]. tel:[phone] OFFICE/OUTPA TIENT VISIT, [facility], [address], [place], [place], [address], [place] tel:[phone] [facility] DM (chief complaint) pain (chief complaint) Type 2 diabetes mellitus with diabetic nephropathyChronic pain syndrome March-0 4 Isbell Giuliano. [address], [place], [place], [address] , [place]. tel:[phone] OFFICE/OUTPA TIENT VISIT, [facility], [address], [place], [place], [address], [place] tel:[phone] [facility] DM (chief complaint) Type 2 diabetes mellitus with diabetic nephropathy Feb-0 4 Isbell Giuliano. [address], [place], [place], [address] , [place]. tel:[phone] OFFICE/OUTPA TIENT VISIT, [facility], [address], [place], [place], [address], [place] tel:[phone] [facility] absess1 (chief complaint) pain (chief complaint) Cellulitis of buttockChronic pain syndrome Feb-0 4 Isbell Giuliano. [address], [place], [place], [address] , [place]. tel:[phone] OFFICE/OUTPA TIENT VISIT, [facility], [address], [place], [place], [address], [place] tel:[phone] [facility] colon polyp1 (chief complaint) pain1 (chief complaint) Polyp of colonChronic pain syndrome Jan-0 4 Isbell Giuliano. [address], [place], [place], [address] , [place]. tel:[phone] OFFICE/OUTPA TIENT VISIT, [facility], [address], [place], [place], [address], [place] tel:[phone] [facility] skin1 (chief complaint) Cellulitis of left leg Feb-2 4 Isbell Giuliano. [address], [place], [place], [address] , [place]. tel:[phone] OFFICE/OUTPA TIENT VISIT, [facility], [address], [place], [place], [address], [place] tel:[phone] [facility] chronic pain1 (chief complaint) polyp1 (chief complaint) Chronic pain syndromePolyp of colon Fe 4 Sukhi Nobles. [address], [place], [place], [address] , [place]. tel:[phone] OFFICE/OUTPA TIENT VISIT, [facility], [address], [place], [place], [address], [place] tel:[phone] [facility] rectal (chief complaint) Polyp of colonEsophageal varices 4 Sukhi Nobles. [address], [place], [place], [address] , [place]. tel:[phone] OFFICE/OUTPA TIENT VISIT, [facility], [address], [place], [place], [address], [place] tel:[phone] [facility] Gi bleeding1 (chief complaint) pain (chief complaint) Alcoholic hepatic cirrhosis w/o ascitesEsophageal varicesOccult blood in stoolChronic pain syndrome 4 Sukhi Nobles. [address], [place], [place], [address] , [place]. tel:[phone] OFFICE/OUTPA TIENT VISIT, [facility], [address], [place], [place], [address], [place] tel:[phone] [facility] liver cirrhosis1 (chief complaint) chronic pain1 (chief complaint) Chronic pain syndromeHemoptysisP ulmonary edemaEsophageal varices 3 Sukhi Nobles. [address], [place], [place], [address] , [place]. tel:[phone] OFFICE/OUTPA TIENT VISIT, [facility], [address], [place], [place], [address], [place] tel:[phone] [facility] GI (chief complaint) Alcoholic hepatic cirrhosis w/o ascites 3 Sukhi Nobles. [address], [place], [place], [address] , [place]. tel:[phone] OFFICE/OUTPA TIENT VISIT, [facility], [address], [place], [place], [address], [place] tel:[phone] [facility] cirrhosis1 (chief complaint) DM (chief complaint) LFT (chief complaint) platelet1 (chief complaint) pain (chief complaint) Type 2 diabetes mellitus with diabetic nephropathyOther cirrhosis of liverThrombocytopen iaChronic pain syndrome 3 Sukhi Nobles. [address], [place], [place], [address] , [place]. [phone] OFFICE/OUTPA TIENT VISIT, [facility], [address], [place], [place], [address], [place] tel:[phone] [facility] chronic pain1 (chief complaint) HLP (chief complaint) COPD1 (chief complaint) DM (chief complaint) Centrilobular emphysemaCAD of alturas coronary artery without angina pectorisType 2 DM w/ diabetic neuropathyChronic pain syndrome 3 Sukhi Nobles. [address], [place], [place], [address] , [place]. tel:[phone] [facility], [address], [place], [place], [address], [place] tel:[phone] [facility] No Information 3 Sukhi Nobles. [address], [place], [place], [address] , [place]. tel:[phone] OFFICE/OUTPA TIENT VISIT, [facility], [address], [place], [place], [address], [place] tel:[phone] [facility] sick (chief complaint) Acute bronchitisViral infection 3 Sukhi Nobles. [address], [place], [place], [address] , . tel:[phone] OFFICE/OUTPA TIENT VISIT, [facility], [address], [address], [place] tel:[phone] [facility] COVID (chief complaint) Viral infection 3 Sukhi Nobles. [address], [place], [place], [address] , [place]. tel:[phone] [facility], [address] [place], [address], [place] tel:[phone] [facility] No Information 3 Sukhi Nobles. [address], [place], [place], [address] , [place]. tel:[phone] OFFICE/OUTPA TIENT VISIT, [facility], [address] [place], [address], [place] tel:[phone] [facility] back pain1 (chief complaint) DM (chief complaint) COPD1 (chief complaint) liver cirrhosis1 (chief complaint) low platelet1 (chief complaint) CAD (chief complaint) Type 2 DM w/ diabetic neuropathyCAD of alturas coronary artery without angina pectorisCentrilobul ar emphysemaOther cirrhosis of liverChronic pain syndrome 3 Sukhi Nobles. [address], [address] , [place]. [phone] Family History Family Member Type Diagnosis Age At Onset Mother Problem of CAD 74 Father Problem of emphysema 70 Brother Problem Alive and well Payers Payer name Insurance type Covered green party ID Authorgrzegorza tidale(s) [facility] CI [id number] Social History Type Description Quantity Date Captured Comments Alcohol Use Details beer & wine 1 drink rarely Caffeine Use Details Unknown Tobacco Use Status Heavy cigarette smok er (20-39 cigs/day) Smoking Status Heavy tobacco smoker Sex Male Vital Signs Date / Time: Height Weight BMI Pulse Rate Blood Pressure Temperature Respiratory Rate Body Surface Area Head Circumference BMI percentile Pulse Ox Inhaled Ox 5:40 PM 72.00 in 243.00 lbs 32.9 6 kg/m eter (2) 65 /min 130/60 mm[Hg] 98.2 F 16 /min Chief Complaint And Reason For Visit From encounter dated '02/02/2025 17:28'. physical (chief complaint). Description: Pt needs annual physical pt has chronic neck and back painwith some sciatica Pt denies any loss of bowel or bladder control or saddle area paresthesia. Pt takes norco and lidocaine patch for pain and doing ok. Pt has CAD with stent .Pt sees cardiology Pt neda coreg and plavix and entresto Pt has DM Pt sees endo Pt is on insulin. Pt has COPD Pt sees pulmonary Pt is on spiriva Pt has KHAN. Pt is seeing liver specialist and is being monitored. Pt denies any new compliant Plan Of Treatment Date Type Action Status Referral Ordered: COLONOSCOPY AND BIOPSY ordered Referral Ordered: ESOPH ENDOSCOPY, DILATION ordered Referral Ordered: CT THORAX W/O DYE ordered Referral Ordered: CHEST X-RAY PA/LAT TWO-VIEWS ordered Referral Ordered: Pain Medicine (related to Chronic pain syndrome) ordered Referral Ordered: Referrals: Pain Medicine. Evaluate and treat ordered Appointment Julius Campos BOOKED Appointment Julius Campos BOOKED History Of Present Illness Encounter Date Complaint History Of Prese nt Illness physical Pt needs annual physical pt has chronic neck and back pain with some sciatica Pt denies any loss of bowel or bladder control or saddle area paresthesia. Pt takes norco and lidocaine patch for pain and doing ok. Pt has CAD with stent .Pt sees cardiology Pt is on coreg and plavix and entresto Pt has DM Pt sees endo Pt is on insulin. Pt has COPD Pt sees pulmonary Pt is on spiriva Pt has KHAN. Pt is seeing liver specialist and is being monitored. Pt denies any new compliant ED Pt has ED Pt den ies any testicular pain, atrophy or nodule Pt has good libido Pt wants to try viagra pain Pt has chronic n mark and jamie pain. Pt states that he is in pain all the time. Pt denies any loss of bowel or bladder control or saddle area paresthesia. MRI of C and T and L spine showed severe DDD. He needs norco refilled. Pt needs lidocaine patch refilled. abscess1 Pt has recurrent abscess around groin area Pt notices some drainage again Pt does not want to take oral abx again pt wants to try some topicals. Pt denies any fever, etc tobacco1 pt is long time smoker with COPD. Pt sees pulmonary and he is on spiriva Pt had negative LDCT last month Pt denies any hemoptysis liver cirrhosis1 Pt has KHAN Pt sees liver specialist. Pt denies any abd pain or jaundice. Pt needs HCC screening pain Pt has chronic n mark and jamie pain. Pt states that he is in pain all the time. Pt denies any loss of bowel or bladder control or saddle area paresthesia. MRI of C and T and L spine showed severe DDD. He needs norco refilled. Pt needs lidocaine patch refilled. pain Pt has chronic n mark and jamie pain. Pt states that he is in pain all the time. Pt denies any loss of bowel or bladder control or saddle area paresthesia. MRI of C and T and L spine showed severe DDD. He needs norco refilled. Pt needs lidocaine patch refilled. carpal tunnel1 Pt has bilateral carpal tunnel pt had surgery right hand recently at [facility]. Pt doing ok. Pt will have left hand surgery done soon liver1 pt has liver cir rhosis Pt sees GI pt needs HCC screen. Pt has not done it yet pain Pt has chronic n mark and jamie pain. Pt states that he is in pain all the time. Pt denies any loss of bowel or bladder control or saddle area paresthesia. MRI of C and T and L spine showed severe DDD. He needs norco refilled. Pt needs lidocaine patch refilled. abscess1 Pt c/o acute ons et of skin abscess left inner thigh area for two days Pt has history of abscess Pt denies any drainage Pt notices pain and hard induration around the area Pt denies any fever, chill pain Pt has chronic n mark and jamie pain. Pt states that he is in pain all the time. Pt denies any loss of bowel or bladder control or saddle area paresthesia. MRI of C and T and L spine showed severe DDD. He needs norco refilled. Pt needs lidocaine patch refilled. Pt states that he has been running out of norco early due to pain pain Pt has chronic n mark and jamie pain. Pt states that he is in pain all the time. Pt denies any loss of bowel or bladder control or saddle area paresthesia. MRI of C and T and L spine showed severe DDD. He needs norco refilled. Pt needs lidocaine patch refilled. liver1 Pt has fatty francoise er and liver cirrhosis Pt sees Liza ferrera (liver specialist). pt denies any abd pain or jaundice. Pt does not have any ascites. Pt also has gallstone platelet1 Pt has low plate let. Pt denies any bleeding or bruising Pt is seeing hematology and was told that low platelet is due to fatty liver. HLP Pt has HLP and C AD Pt sees cardiology .Pt is on lipitor and ASA and plavix Pt denies any chest pain pain Pt has chronic n mark and jamie pain. Pt states that he is in pain all the time. Pt denies any loss of bowel or bladder control or saddle area paresthesia. MRI of C and T and L spine showed severe DDD. He needs norco refilled. Pt needs lidocaine patch refilled. cough1 Pt has been havi ng some dry cough for several days Pt states that he has hard time cough up the phlegm Pt denies any chest pain or sob or fever. He denies any sore throat or sinus congestion or ear pain COPD1 Pt has COPD. pt is on spiriva and albuterol and he notices the need to use albuterol more lately. Pt denies any hemoptysis cirrhosis1 Pt has liver cir rhosis due to KHAN. Pt is seeing real estate sales manager. Pt denies any abd pain or jaundice. Pt rarely drinks alcohol DM Pt has DM pt is on humalog and he has inez with endo next week. His glucose is around 120s. CAD Pt has CAD with stent Pt is on entresto, plavix, lipitor and ASA Pt sees cardiology Pt denies any chest pain carpal tunnel1 Pt has left carp al tunnel and he he will have surgery tomorrow. pain Pt has chronic n mark and jamie pain. Pt states that he is in pain all the time. Pt denies any loss of bowel or bladder control or saddle area paresthesia. MRI of C and T and L spine showed severe DDD. He needs norco refilled. Pt wants to try lidocaine patch pain Pt has chronic n mark and jamie pain. Pt states that he is in pain all the time. Pt denies any loss of bowel or bladder control or saddle area paresthesia. MRI of C and T and L spine showed severe DDD. He needs norco refilled. Pt wants to try lidocaine patch DM Pt has DM. he is on Humalog mix 75/25 SC 40 units BID after breakfast and dinner. His A1c is around 6.4 with fasting glucose 140 recently. Pt has inez with endo in May and he needs insulin refilled. pain Pt has chronic n mark and jamie pain. Pt states that he has DDD around neck and back. Pt states that he is in pain all the time. Pt denies any loss of bowel or bladder control or saddle area paresthesia. MRI of C and T and L spine showed severe DDD. He needs norco refilled shoulder pain1 Pt c/o chronic b ilateral shoulder pain due to rotator cuff pathology Pt sees ortho Pt wants to try lidocaine patch, which did help his pain in the past Pt denies any acute shoulder injury ,Pt denies any shoulder swelling, erythema or warmth . DM Pt has DM. he is on Humalog mix 75/25 SC 40 units BID after breakfast and dinner. His A1c is around 6.4 with fasting glucose 140 recently. Pt has inez with endo in May and he needs insulin refilled. pain Pt has chronic n mark and jamie pain. Pt states that he has DDD around neck and back. Pt states that he is in pain all the time. Pt denies any loss of bowel or bladder control or saddle area paresthesia. MRI of C and T and L spine showed severe DDD. He is taking one norco per day and he wants to takes norco at least twice per day for his pain DM Pt has DM. he is on Humalog mix 75/25 SC 40 units BID after breakfast and dinner. His A1c is around 6.4 with fasting glucose 140 recently. Pt does see endo at [facility] who retired recently and he does not want to see H[employer] INS[employer] for his DM care and he wants referral to new lamp shade assembler Pt is about to running out of his insulins. absess1 Pt c/o acute ons et of abscess left buttock area for 4 days Pt notices some purulent drainage this morning . pt states that it is very painful. Pt denies any fever. pain Pt has chronic n mark and jamie pain. Pt states that he has DDD around neck and back. Pt states that he is in pain all the time. Pt denies any loss of bowel or bladder control or saddle area paresthesia. MRI of C and T and L spine showed severe DDD. He states that 5 mg norco barely helps his pain colon polyp1 Pt had colonosco py done which showed tubular adenoma and needs to repeat in two years Pt had benign EGD Pt does not have any esophageal varices. pain1 Pt has chronic n mark and jamie pain. Pt states that he has DDD around neck and back. Pt states that he is in pain all the time. Pt denies any loss of bowel or bladder control or saddle area paresthesia. MRI of C and T and L spine showed severe DDD. He states that 5 mg norco barely helps his pain skin1 Pt c/o acute ons et of skin infection with abscess left inner thigh area for two days. Pt notices harden area under skin with pain Pt denies any drainage ,Pt denies any puncture injury Pt denies any fever, Pt denies any warmth polyp1 Pt has esophagea l varices with liver cirrhosis with portal HTN and hematemesis and also blood in stool. pt denies any acute symptoms Pt has inez with GI for EGD and colonoscopy next week chronic pain1 Pt has chronic n mark and jamie pain. Pt states that he has DDD around neck and back. Pt states that he is in pain all the time. Pt denies any loss of bowel or bladder control or saddle area paresthesia. MRI of C and T and L spine showed severe DDD. He states that 5 mg norco barely helps his pain rectal Pt c/o bright re d blood per rectum mixed with stool recently which stopped Pt is very confused .Pt had colonoscopy done two years ago but i do not know the results. Apparently Dr. Ricci attempted to do another colonoscopy for him recently which was failed attempt due to incomplete emptying .Pt also has liver cirrhosis and he had some hemoptysis and he needs EGD as well Pt states that he received a call from Dr. Gonsalez regarding EGD but he has not made inez yet. pt sees Dr De Jesus for liver cirrhosis.. Pt states that lower GI bleeding stopped . Pt states that he did hear from Dr Gonsalez office and he has inez for EGD and colonoscopy set up in two weeks. Pt denies any GERD. Pt no longer has hemoptysis or any cough pain Pt has chronic n mark and jamie pain. Pt states that he has DDD around neck and back. Pt states that he is in pain all the time. Pt denies any loss of bowel or bladder control or saddle area paresthesia. MRI of C and T and L spine showed severe DDD Gi bleeding1 Pt c/o bright re d blood per rectum mixed with stool recently which stopped Pt is very confused .Pt had colonoscopy done two years ago but i do not know the results. Apparently Dr. Ricci attempted to do another colonoscopy for him recently which was failed attempt de to incomplete emptying .Pt also has liver cirrhosis and he had some hemoptysis and he needs EGD as well Pt states that he received a call from Dr. Gonsalez regarding EGD but he has not made inez yet. pt sees Dr De Jesus for liver cirrhosis.. Pt states that lower GI bleeding stopped . liver cirrhosis1 Pt has liver ci rrhosis and he sees liver specialist at [facility], who told him that he may have esophageal varices. Pt has been coughing up some blood tinge phlegm last week. Pt denies any persistent cough or sob. Pt denies any chest pain Pt went to ER and had chest x ray done which showed some cardiomegaly and mild pulmonary edema. 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 chronic pain1 Pt has chronic n mark and jamie pain. Pt states that he has DDD around neck and back. Pt states that he is in pain all the time. pt states that he tried to get the MRI report from [facility] but they will not release it. GI Pt has liver cir rhosis and he sees liver specialist at [facility]. Pt denies any abd pain or jaundice. Pt wants colonguard order Pt denies any lower GI issue .Pt just had EGD done two weeks ago at Dr. ricci office and he did attempt for colonoscopy but unsuccessful due to poor prep. pain Pt has chronic n mark and jamie pain. Pt states that he has DDD around neck and back. Pt states that he is in pain all the time. pt states that he tried to get the MRI report from [facility] but they will not release it. cirrhosis1 Pt has liver cir rhosis on CT scan. Pt is seeing Dr. De Jesus from [facility] for his cirrhosis now and he was referred to Dr. Ricci who performed EGD several weeks ago and he will do colonoscopy next week. He was told that he has gastritis only DM Pt sees endo. pt is on insulin His A1c is ok. .He does have mild proteinuria LFT Pt has mildly hi gh LFT. .Pt does have signs of liver cirrhosis. Pt denies any abd pain or jaundice. platelet1 Pt has low plate let with high MCV. Pt states that he only drinks alcohol socially now but he used to drink more alcohol chronic pain1 Pt has chronic n mark and jamie pain. Pt states that he has DDD around neck and back. Pt states that he is in pain all the time. pt states that he tried to get the MRI report from [facility] but they will not release it. he HLP Pt has HLP Pt andujar s CAD Pt takes lipitor Pt sees cardiology [facility] . Pt denies any chest pain COPD1 Pt has COPD [place] he does not know the name of the pulmonary Pt denies any sob DM Pt has dm Pt is on humalog insulin and he sees endo in [place] Pt states that his glucose is around 130s. sick Pt c/o acute ons et of dry cough since last week. Pt feels sob as well. Pt denies any fever. Pt also has mild sinus congestion, sore throat. His grand kids have COVID since two days ago and he was with his grandkids two days ago. He states that he did get the COVID vaccine x 1 booster. . he also has COPD and he is on spiriva and he uses albuterol frequently. He denies any hemoptysis. Pt states that his overall symptoms are much better but he still feels some mild sob with severe coughing. Pt took paxlovid COVID Pt c/o acute ons et of dry cough since yesterday. Pt feels sob as well. Pt denies any fever. Pt also has mild sinus congestion, sore throat. His grand kids have COVID since two days ago and he was with his grandkids two days ago. He also told me he is not vaccinated for COVID. he also has COPD and he is on spiriva and he uses albuterol frequently. He denies any hemoptysis liver cirrhosis1 Pt has liver ci rrhosis but he does not have hep C and he does not drink alcohol. he does not know why he has liver cirrhosis. Pt denies any abdominal pain CAD Pt has CAD s/p s tent. Pt sees cardiology Pt is on entresto and plavix Pt denies any chest pain low platelet1 Pt has chronic t hrombocytopenia Pt denies any bleeding or bruising Pt sees oncology. back pain1 Pt has chronic m id and low back pain with sciatica and leg neuropathy symptoms Pt denies any loss of bowel or bladder control or saddle area paresthesia Pt states that his previous MD tried him on lyrica and neurontin and cymbalta and none of them helped. Pt states that his previous PCP does not want to treat his pain. COPD1 Pt has COPD ,Pt sees pulmonary and he sees pulmonary and he is on spiriva. He denies any hemoptysis, sob or cough DM Pt has DM with n europathy. Pt uses humalog and he sees endo (Dr. Fair) and he states that his glucose is around 140s. Instructions Date Instruction Additional Infor mation No Information Assessments Type Assessment Date assessment Encounter for genera l adult medical examination without abnormal findings Mental Status Date Cognitive Assessment Orientation - Benjamin ed to time, place, person, situation.
--- OUTSIDE RECORDS SUMMARY | 2025-03-12 04:41 | XMS_ITS ---
[place] [address] * ECG 12 lead (02/21/2025 12:08 AM CDT) Ventricular Rate EKG/Min [address] [facility] Atrial Rate 108 BPM [facility] WI-Interval (MSEC) [address] [facility] QRS-Interval (MSEC) [address] [facility] QT-Interval (MSEC) [address] [facility] QTc [address] [facility] P [place] [address] [facility] R [place] -75 degrees [facility] T [place] 89 degrees [facility] Diagnosis Sinus tachycardia with frequent Premature ventricular complexes Left bundle branch block Abnormal ECG When compared with ECG of 06-APR-2007 06:22, Premature ventricular complexes are now Present Left bundle branch block is now Present Confirmed by FACUNDO ALLEN M.D ([id number]) on 02/21/2025 7:25:34 PM [facility] 02/21/2025 12:0 8 AM CDT 02/21/2025 7:25 PM CDT Hood Pacheco MD ECG ORDERABLES Final Result [facility] * Type and screen (02/21/2025 12:06 AM CDT) ABO Rh A Positive Kp, indirect Negative [facility] Blood 02/21/2025 12:0 6 AM CDT 02/21/2025 12:43 AM CDT Hood Pacheco MD LAB BLOOD BANK TEST ORDERABLES F inal Result [facility] Department [place] [address] * Infection Prevention MRSA Only (Staphylococcus aureus) Culture Nasal (02/21/2025 12:06 AM CDT) Report Final Report: Negative Nasal 02/21/2025 12:0 6 AM CDT 02/21/2025 12:24 AM CDT Narrative HAM NICOLAS - 02/22/2025 3:20 AM CDT Testing performed by [facility] ([phone]). us Hood Pacheco MD LAB MICROBIOLOGY - GENERAL ORDER MICHELLE Final Result [facility] Department [place] [address] * [place] CRITICAL CARE ILL/INJURED PATIENT INIT 30-74 MIN (02/20/2025 10:51 PM CDT) Narrative Ivet Barakat MD - 02/20/2025 10:51 PM CDT Ivet Barakat MD 02/20/2025 10:53 PM Critical Care Performed by: Ivet Barakat MD Authorized by: Ivet Barakat MD Critical care provider statement: As reflected in the history, physical exam, orders, notes, and/or MDM, I was personally present while the patient was critically ill and provided critical care services for 60 minutes, excluding time involved in separately billable procedures. Critical care was necessary to treat or prevent imminent or life-threatening deterioration of the following condition(s): unstable vital signs acute congestive heart failure excerbation (CHF) and cardiogenic shock hypoxic respiratory failure acute renal failure, acid-base disturbance, acute electrolyte derangement and lactic acidosis thrombocytopenia sepsis and pneumonia Critical care was time spent by me providing the following: continuous telemetry, continuous pulse oximetry, interpretation of bedside monitors, imaging, and arterial/venous lab draws, serial bedside patient exams and serial laboratory checks initiation of inotropic medication and initiation and active titration of vasoactive medications supplemental oxygen review prior cultures/records, obtain appropriate cultures and empiric broad coverage antibiotics I provided emergent necessary critical care medicine services to this patient. I ordered and reviewed test results and/or imaging studies. I spent time discussing the management of this critically ill patient with consultants and the medical staff. I spent time documenting in the medical record. I admitted this patient to an Intensive Care unit (ICU) and discussed management with the admitting team. us Ivet Barakat MD IN CLINIC/BEDSIDE ORDERABLE S Final Result * (ABNORMAL) eGFR (02/20/2025 9:27 PM CDT) eGFR 39(L) >=60 mL/min/1. 73 m2 Comment: Interpretive Data Reference Interval Normal >/= 90 mL/min/1.73m2 Mildly decreased* 60 - 89 mL/min/1.73m2 Mildly to moderately decreased 45 - 59 mL/min/1.73m2 Moderately to severely decreased 30 - 44 mL/min/1.73m2 Severely decreased 15 - 29 mL/min/1.73m2 Kidney Failure < 15 mL/min/1.73m2 *Relative to young adult level Estimated glomerular filtration rate is determined by the 2020 CKD-EPI equation recommended by the National Kidney Foundation (A Unifying Approach to GFR Estimation: Recommendations of the NKF-ASK Task Force on Reassessing the Inclusion of Race in Diagnosing Kidney Disease, JASN 2020). The CKD-EPI equation should not be used for patients with unstable renal function and has not been validated in children and those over 70. Current interpretive data was last reviewed 2021. Blood 02/20/2025 9:27 PM CDT 02/20/2025 9:38 PM CDT us Ivet Barakat MD LAB BLOOD ORDERABLES Final Result [facility] Department [place] [address] * (ABNORMAL) Pro B-type natriuretic peptide (02/20/2025 9:27 PM CDT) NT-proBNP 6,558(H) <=300 pg/mL Comment: Interpretive Comments: A. Dyspnea in Acute Care Setting All Ages: < 300 pg/ml, acute heart failure unlikely. < 50 yrs: 300 - 450 pg/ml, further investigation warranted. > 450 pg/ml, acute heart failure likely. 50 - 74 yrs: 300 - 900 pg/ml, further investigation warranted. > 900 pg/ml, acute heart failure likely . > or = 75 yrs: 450 - 1800 pg/ml, further investigation warranted. > 1800 pg/ml, acute heart failure likely. B. Non-acute Setting < 75 yrs < 125 pg/ml, rules out heart failure. > or = 125 pg/ml, further investigation warranted. > or = 75 yrs < 450 pg/ml, rules out heart failure. > or = 450 pg/ml, further investigation warranted. - Knowledge of each individual patient's NT-proBNP range may be more useful than using similar cut-points for every patient. Please note that marked elevations in NT-proBNP levels may be observed in state other than Left Ventricular Congestive Failure, including: acute coronary syndromes, right heart strain/failure (including pulmonary embolism and cor pulmonale), critical illness, renal failure, as well as advanced age. - References: 1. Holli HIGGINS et.al. Eur Heart J. 2006:27:330-337. 2. Kermit RW, Melissa ARANDA. J. AM Kendra Cardiol: Cardiovasc Imag. 2009;2: 216- 225. Interpretive Data Last Revised Date: 2018. Blood 02/20/2025 9:27 PM CDT 02/20/2025 9:38 PM CDT us Ivet Barakat MD LAB BLOOD ORDERABLES Final Result [facility] Department [place] [address] * (ABNORMAL) CBC with auto differential (02/20/2025 9:27 PM CDT) WBC 6.7 3.8 - 9.9 K/cumm Hgb 11.7(L) 13.0 - 17.5 g/dL [facility] Hct 34.5(L) 38.9 - 50.3 % [facility] Plt 78(L) 150 - 400 K/cumm [facility] MPV 12.0 9.1 - 12.3 fL [facility] RBC 3.66(L) 4.30 - 5.80 M/cumm [facility] MCV 94.3 81.3 - 96.4 fL [facility] MCH 32.0 27.1 - 33.3 pg [facility] MCHC 33.9 32.3 - 35.7 g/dL [facility] RDW CV 15.3(H) 11.1 - 14.9 % [facility] RDW SD 52.7(H) 35.7 - 48.1 fL [facility] NRBC abs 0.00 0.00 - 0.01 K/cumm [facility] Blood 02/20/2025 9:27 PM CDT 02/20/2025 9:39 PM CDT us Ivet Barakat MD LAB BLOOD ORDERABLES Final Result [facility] Department [place] [address] * (ABNORMAL) Manual Differential (02/20/2025 9:27 PM CDT) Differential Manual Cells Counted 141 [facility] Neutrophil abs 5.0 1.5 - 6.5 K/cumm [facility] Imm gran abs 0.8(H) 0.0 - 0.1 K/cumm [facility] Lymphocyte abs 0.4(L) 0.8 - 3.3 K/cumm [facility] Monocyte abs 0.4 0.2 - 0.8 K/cumm [facility] Neutrophil pct 75.2 % [facility] Comment: Interpretive Data Percent cell count reference ranges are not reported, since discordance with absolute values may lead to misinterpretation of CBC data. Current Interpretive Data was last revised on 2018. Lymphocyte pct 4.3 % [facility] Comment: Interpretive Data Percent cell count reference ranges are not reported, since discordance with absolute values may lead to misinterpretation of CBC data. Current Interpretive Data was last revised on 2018. Monocyte pct 6.4 % [facility] Comment: Interpretive Data Percent cell count reference ranges are not reported, since discordance with absolute values may lead to misinterpretation of CBC data. Current Interpretive Data was last revised on 2018. Metamyelocyte pct 7.8(H) 0.0 - 0.0 % [facility] Myelocyte pct 3.5(H) 0.0 - 0.0 % [facility] Promyelocyte pct 1.4(H) 0.0 - 0.0 % [facility] Variant lymph pct 1.4(H) 0.0 - 0.0 % [facility] Blood 02/20/2025 9:27 PM CDT 02/20/2025 9:44 PM CDT Ivet Barakat MD LAB BLOOD ORDERABLES Final Result [facility] Department [place] [address] * (ABNORMAL) Basic metabolic panel (02/20/2025 9:27 PM CDT) Sodium 129(L) 135 - 145 mmol/L Potassium, pl 4.5 3.3 - 4.9 mmol/L [facility] Chloride 92(L) 97 - 110 mmol/L [facility] CO2 24 22 - 32 mmol/L [facility] Anion gap 13 2 - 15 mmol/L [facility] BUN 48(H) 6 - 25 mg/dL [facility] Creatinine 1.84(H) 0.80 - 1.30 mg/dL [facility] Glucose 81 70 - 199 mg/dL [facility] Comment: Interpretive Data Fasting glucose >/= 126 mg/dl is diagnostic for diabetes. Fasting is defined as no caloric intake for at least 8 hours. Fasting glucose between 100 mg/dl to 125 mg/dl is diagnostic of prediabetes. In a patient with classic symptoms of hyperglycemia or hyperglycemic crisis, a random glucose >/= 200 mg/dl is diagnostic for diabetes. In the absence of unequivocal hyperglycemia, results should be confirmed by repeat testing. The classification and Diagnosis of Diabetes Diabetes Care 202; 46: S19-S40. Current interpretive data was last revised 2022. Calcium 7.7(L) 8.5 - 10.3 mg/dL [facility] Blood 02/20/2025 9:27 PM CDT 02/20/2025 9:38 PM CDT Ivet Barakat MD LAB BLOOD ORDERABLES Final Result [facility] [place] [place] [address] * (ABNORMAL) Lactate (02/20/2025 8:50 PM CDT) Lactate 4.9(C) 0.7 - 2.0 mmol/L Blood 02/20/2025 8:50 PM CDT 02/20/2025 9:00 PM CDT Divine Ventura NP LAB BLOOD ORDERABLES Final Res ult Performing Organization Address [facility] Co de Phone Number [facility] [place] [address] * Critical Result Callback Chemistry (02/20/2025 8:50 PM CDT) Date Notified 20250220 Time Notified 2134 [facility] TestName Lactate [facility] Called/Read Back Buck NICOLAS Credentials MD [facility] NICOLAS Called By [facility] Blood 02/20/2025 8:50 PM CDT 02/20/2025 9:00 PM CDT Divine Ventura NP LAB BLOOD ORDERABLES Final Res ult Performing Organization Address City/[facility]/ZIP Co de Phone Number [facility] [place] [address] * POCUS Thoracic (Lung Ultrasound) (02/20/2025 8:23 PM CDT) Anatomical Region Laterality Modality Other 02/20/2025 8:11 PM CDT Narrative 02/25/2025 3:49 PM CDT Performed by: Buck Carey Thoracic : Exam Information: Exam type: Diagnostic Indication(s) for Exam: Hypotension, Dyspnea Findings: Right thorax: B-lines (> 3 per view) Left thorax: B-lines (> 3 per view) Interpretation: Right lung: Diffuse or multifocal interstitial syndrome Left lung: Diffuse or multifocal interstitial syndrome Comments: clips 1 and 2 right anterior thorax, clips 4 and 5 left anterior thorax Electronically signed by Buck Carey on Friday, February 21, 2025 at 4:26 PM I have reviewed the images & the resident's interpretation. I agree with the findings. Electronically signed by IVET BARAKAT on Tuesday, February 25, 2025 at 3:49 PM I have reviewed the images & the resident's interpretation. I agree with the findings. Procedure Note Ivet Barakat MD - 02/25/2025 Performed by: Buck Carey Thoracic : Exam Information: Exam type: Diagnostic Indication(s) for Exam: Hypotension, Dyspnea Findings: Right thorax: B-lines (> 3 per view) Left thorax: B-lines (> 3 per view) Interpretation: Right lung: Diffuse or multifocal interstitial syndrome Left lung: Diffuse or multifocal interstitial syndrome Comments: clips 1 and 2 right anterior thorax, clips 4 and 5left anterior thorax Electronically signed by Buck Carey on Friday, February 21, 2025 at 4:26PM I have reviewed the images & the resident's interpretation. I agree withthe findings. Electronically signed by IVET BARAKAT on Tuesday, February 25, 2025 at3:49 PM I have reviewed the images & the resident's interpretation. I agree withthe findings. us Ivet Barakat MD POCUS ORDERABLES Final Resu lt * POCUS Cardiac (02/20/2025 8:21 PM CDT) Anatomical Region Laterality Modality Other 02/20/2025 8:11 PM CDT Narrative 02/25/2025 3:50 PM CDT Performed by: Buck Carey Cardiac: Exam type: Diagnostic Exam Information: Indication(s) for Exam: Hypotension, Dyspnea Exam Occurence: Initial Findings : Pericardial effusion: Absent Left ventricle: Dilated, Reduced EF Right ventricle: Normal IVC: Not visualized Interpretation: Reduced LVEF Other : limited cardiac windows Electronically signed by Buck Carey on Friday, February 21, 2025 at 4:28 PM I have reviewed the images & the resident's interpretation. I agree with the findings. Electronically signed by IVET BARAKAT on Tuesday, February 25, 2025 at 3:50 PM I have reviewed the images & the resident's interpretation. I agree with the findings. Procedure Note Ivet Barakat MD - 02/25/2025 Performed by: Buck Carey Cardiac: Exam type: Diagnostic Exam Information: Indication(s) for Exam: Hypotension, Dyspnea Exam Occurence: Initial Findings : Pericardial effusion: Absent Left ventricle: Dilated, Reduced EF Right ventricle: Normal IVC: Not visualized Interpretation: Reduced LVEF Other : limited cardiac windows Electronically signed by Buck Carey on Friday, February 21, 2025 at 4:28PM I have reviewed the images & the resident's interpretation. I agree withthe findings. Electronically signed by IVET BARAKAT on Tuesday, February 25, 2025 at3:50 PM I have reviewed the images & the resident's interpretation. I agree withthe findings. Ivet Barakat MD POCUS ORDERABLES Final Resu lt * (ABNORMAL) POCT lactate (02/20/2025 7:45 PM CDT) [facility] Lactate POC i-STAT 3.8(H) 0.7 - 2.0 mmol/L Blood 02/20/2025 7:45 PM CDT 02/20/2025 7:45 PM CDT us Ivet Barakat MD LAB POCT ORDERABLES - DEVIC E Final Result [facility] Department [place] [address] * (ABNORMAL) ECG 12-LEAD (02/20/2025 7:35 PM CDT) Narrative [facility] - 02/20/2025 7:35 PM CDT Gisela Camejo MD 02/20/2025 7:59 PM ECG 12 lead Date/Time: 02/20/2025 7:35 PM Performed by: Gisela Camejo MD Authorized by: Gisela Camejo MD Rate: ECG rate: 106 ECG rate assessment: tachycardic Rhythm: Rhythm: sinus rhythm Ectopy: Ectopy: PAC and PVCs PVCs: Frequent QRS: QRS axis: Left QRS intervals: Wide Conduction: Conduction: abnormal Abnormal conduction: complete LBBB ST segments: ST segments: Normal T waves: T waves: normal Previous ECG: Previous ECG: Compared to current Date of previous EC02/19/2025 Interpretation: Interpretation: abnormal Recommended Follow-up: Recommended follow up: further workup in the ED Procedure Note Gisela Camejo MD - 02/20/2025 7:53 PM CDT Procedure ECG 12 lead Date/Time: 02/20/2025 7:35 PM Performed by: Gisela Camejo MD Authorized by: Gisela Camejo MD Rate: ECG rate: 106 ECG rate assessment: tachycardic Rhythm: Rhythm: sinus rhythm Ectopy: Ectopy: PAC and PVCs PVCs: Frequent QRS: QRS axis: Left QRS intervals: Wide Conduction: Conduction: abnormal Abnormal conduction: complete LBBB ST segments: ST segments: Normal T waves: T waves: normal Previous ECG: Previous ECG: Compared to current Date of previous EC02/19/2025 Interpretation: Interpretation: abnormal Recommended Follow-up: Recommended follow up: further workup in the ED Gisela Camejo MD 02/20/251958 us Gisela Camejo MD ECG ORDERABLES Asya l Result [facility] * POCT glucose (02/20/2025 7:13 PM CDT) Glucose, POC 82 70 - 199 mg/dL Blood 02/20/2025 7:13 PM CDT 02/20/2025 7:13 PM CDT us Hood Pacheco MD LAB POCT ORDERABLES - DEVICE Fin al Result Performing Organization Address [facility] de Phone Number [facility] [place] [place] [address] * POCT glucose (02/20/2025 3:45 PM CDT) [facility] Glucose, POC 90 70 - 199 mg/dL Blood 02/20/2025 3:45 PM CDT 02/20/2025 3:45 PM CDT Hood Pacheco MD LAB POCT ORDERABLES - DEVICE Fin al Result Performing Organization Address [facility] de Phone Number [facility] [place] [place] [address] * (ABNORMAL) Lactate (02/20/2025 3:42 PM CDT) [facility] Lactate 5.0(C) 0.7 - 2.0 mmol/L Blood 02/20/2025 3:4 2 PM CDT 02/20/2025 3:50 PM CDT Divine Ventura NP LAB BLOOD ORDERABLES Final Res ult Performing Organization Address [facility] Co de Phone Number [facility] [place] [place] [address] * (ABNORMAL) eGFR (02/20/2025 3:42 PM CDT) eGFR 42(L) >=60 mL/min/1. 73 m2 Comment: Interpretive Data Reference Interval Normal >/= 90 mL/min/1.73m2 Mildly decreased* 60 - 89 mL/min/1.73m2 Mildly to moderately decreased 45 - 59 mL/min/1.73m2 Moderately to severely decreased 30 - 44 mL/min/1.73m2 Severely decreased 15 - 29 mL/min/1.73m2 Kidney Failure < 15 mL/min/1.73m2 *Relative to young adult level Estimated glomerular filtration rate is determined by the 2020 CKD-EPI equation recommended by the National Kidney Foundation (A Unifying Approach to GFR Estimation: Recommendations of the NKF-ASK Task Force on Reassessing the Inclusion of Race in Diagnosing Kidney Disease, JASN 2020). The CKD-EPI equation should not be used for patients with unstable renal function and has not been validated in children and those over 70. Current interpretive data was last reviewed 2021. Blood 02/20/2025 3:42 PM CDT 02/20/2025 3:50 PM CDT Divine Ventura AEROPLANE PILOT LAB BLOOD ORDERABLES Final Res ult Performing Organization Address City/[facility] Co de Phone Number [facility] Department [place] [address] * Critical Result Callback Chemistry (02/20/2025 3:42 PM CDT) Date Notified 20250220 Time Notified 1627 [facility] TestName Lactate HAM NICOL[facility] Called/Read Back Esha [facility] Credentials RN HAM NICOLAS Called By PD [facility] Blood 02/20/2025 3:42 PM CDT 02/20/2025 3:50 PM CDT Divine Ventura AEROPLANE PILOT LAB BLOOD ORDERABLES Final Res ult Performing Organization Address City/[facility]/ZIP Co de Phone Number [facility] Department [place] [address] * (ABNORMAL) Basic metabolic panel (02/20/2025 3:42 PM CDT) Sodium 128(L) 135 - 145 mmol/L Potassium, pl 4.2 3.3 - 4.9 mmol/L [facility] Chloride 90(L) 97 - 110 mmol/L [facility] CO2 24 22 - 32 mmol/L [facility] Anion gap 14 2 - 15 mmol/L [facility] BUN 42(H) 6 - 25 mg/dL [facility] Creatinine 1.71(H) 0.80 - 1.30 mg/dL [facility] Glucose 88 70 - 199 mg/dL [facility] Comment: Interpretive Data Fasting glucose >/= 126 mg/dl is diagnostic for diabetes. Fasting is defined as no caloric intake for at least 8 hours. Fasting glucose between 100 mg/dl to 125 mg/dl is diagnostic of prediabetes. In a patient with classic symptoms of hyperglycemia or hyperglycemic crisis, a random glucose >/= 200 mg/dl is diagnostic for diabetes. In the absence of unequivocal hyperglycemia, results should be confirmed by repeat testing. The classification and Diagnosis of Diabetes Diabetes Care 2021; 46: S19-S40. Current interpretive data was last revised 2022. Calcium 7.8(L) 8.5 - 10.3 mg/dL [facility] Blood 02/20/2025 3:42 PM CDT 02/20/2025 3:50 PM CDT Divine Ventura NP LAB BLOOD ORDERABLES Final Res ult [facility] Department [place] [address] * POCT glucose (02/20/2025 1:52 PM CDT) Glucose, POC 81 70 - 199 mg/dL Blood 02/20/2025 1:52 PM CDT 02/20/2025 1:52 PM CDT Hood Pacheco MD LAB POCT ORDERABLES - DEVICE Fin al Result Performing Organization Address City/[facility]/ZIP Co de Phone Number [facility] Department [place] [address] * POCT glucose (02/20/2025 11:59 AM CDT) Glucose, POC 112 70 - 199 mg/dL Blood 02/20/2025 11:5 9 AM CDT 02/20/2025 11:59 AM CDT Hood Pacheco MD LAB POCT ORDERABLES - DEVICE Fin al Result Performing Organization Address [facility] Co de Phone Number [facility] Department [place] [address] * (ABNORMAL) POCT glucose (02/20/2025 11:09 AM CDT) Glucose, POC 52(C) 70 - 199 mg/dL Comment:Glu2: RN/MD Notified Glucose comment 1 Glu2: RN/MD Notified [facility] Blood 02/20/2025 11:0 9 AM CDT 02/20/2025 11:09 AM CDT Hood Pacheco MD LAB POCT ORDERABLES - DEVICE Fin al Result Performing Organization Address [facility] de Phone Number [facility] Department [place] [address] * XR Abdomen Ap 1 Vw (02/20/2025 11:09 AM CDT) Anatomical Region Laterality Modality Body, Abdomen N/A Computed Radiogr aphy 02/20/2025 11:2 7 AM CDT Impressions 02/20/2025 11:27 AM CDT There is a nonobstructive bowel gas pattern. There are no dilated loops of large or small bowel. There is a fusion and compressive atelectasis. Electronically signed by: Anton Petersen M.D., MPH Narrative 02/20/2025 11:27 AM CDT EXAMINATION: Abdomen, one view. HISTORY: Abdominal pain. COMPARISON: None Procedure Note Anton Petersen MD - 02/20/2025 EXAMINATION: Abdomen, one view. HISTORY: Abdominal pain. COMPARISON: None IMPRESSION: There is a nonobstructive bowel gas pattern. There are no dilated loops of large or small bowel. There is a fusion and compressive atelectasis. Electronically signed by: Anton Petersen M.D., MPH Divine Ventura AEROPLANE PILOT IMG XR PROCEDURES Final Result * (ABNORMAL) POCT glucose (02/20/2025 10:28 AM CDT) Glucose, POC 46(C) 70 - 199 mg/dL Comment:Glu2: RN/MD Notified Glucose comment 1 Glu2: RN/MD Notified [facility] Blood 02/20/2025 10:2 8 AM CDT 02/20/2025 10:28 AM CDT Hood Pacheco MD LAB POCT ORDERABLES - DEVICE Fin al Result Performing Organization Address [facility] Co de Phone Number [facility] Department [place] [address] * (ABNORMAL) POCT glucose (02/20/2025 9:13 AM CDT) Glucose, POC 49(C) 70 - 199 mg/dL Comment:Glu2: RN/ Notified Glucose comment 1 Glu2: RN/ Notified [facility] [facility] Blood 02/20/2025 9:13 AM CDT 02/20/2025 9:13 AM CDT Hood Pacheco MD LAB POCT ORDERABLES - DEVICE Fin al Result Performing Organization Address [facility] Co de Phone Number [facility] [place] [employer] [place] [address] * (ABNORMAL) POCT glucose (02/20/2025 9:10 AM CDT) Glucose, POC 51(C) 70 - 199 mg/dL Comment: Glu2: Critical Value Noted RN/ Notified Glucose comment 2 RN/ Notified [facility] Blood 02/20/2025 9:10 AM CDT 02/20/2025 9:10 AM CDT Hood Pacheco MD LAB POCT ORDERABLES - DEVICE Fin al Result Performing Organization Address [facility] Co de Phone Number [facility] Department [place] [address] * (ABNORMAL) Sepsis Lactate w/ Reflex (02/20/2025 8:49 AM CDT) Pathologist [facility] Sepsis Lactate 4.7(C) 0.7 - 2.0 mmol/L Blood 02/20/2025 8:49 AM CDT 02/20/2025 9:17 AM CDT us Sidney Malik MD LAB BLOOD ORDERABLES Fin al Result Performing Organization Address [facility] Co de Phone Number [facility] Department [place] [address] * (ABNORMAL) Lactate (02/20/2025 8:49 AM CDT) [facility] Lactate 4.7(C) 0.7 - 2.0 mmol/L Blood 02/20/2025 8:49 AM CDT 02/20/2025 9:26 AM CDT Divine Ventura NP LAB BLOOD ORDERABLES Final Res ult Performing Organization Address [facility] Co de Phone Number [facility] [place] [address] * (ABNORMAL) eGFR (02/20/2025 8:49 AM CDT) Pathologist [facility] eGFR 39(L) >=60 mL/min/1. 73 m2 Comment: Interpretive Data Reference Interval Normal >/= 90 mL/min/1.73m2 Mildly decreased* 60 - 89 mL/min/1.73m2 Mildly to moderately decreased 45 - 59 mL/min/1.73m2 Moderately to severely decreased 30 - 44 mL/min/1.73m2 Severely decreased 15 - 29 mL/min/1.73m2 Kidney Failure < 15 mL/min/1.73m2 *Relative to young adult level Estimated glomerular filtration rate is determined by the 2020 CKD-EPI equation recommended by the National Kidney Foundation (A Unifying Approach to GFR Estimation: Recommendations of the NKF-ASK Task Force on Reassessing the Inclusion of Race in Diagnosing Kidney Disease, JASN 2020). The CKD-EPI equation should not be used for patients with unstable renal function and has not been validated in children and those over 70. Current interpretive data was last reviewed 2021. Blood 02/20/2025 8:49 AM CDT 02/20/2025 9:26 AM CDT Divine Ventura AEROPLANE PIL[employer] LAB BLOOD ORDERABLES Final Res ult [facility] Department [place] [employer] [place] [address] * Critical Result Callback Chemistry (02/20/2025 8:49 AM CDT) Date Notified 20250220 Time Notified 1016 [facility] NICOLAS TestName Glucose [facility] Called/Read Back Prakash NICOLAS Credentials ARIELLE LARIOS Called By [facility] Blood 02/20/2025 8:49 AM CDT 02/20/2025 9:26 AM CDT Divine Ventura AEROPLANE PILOT LAB BLOOD ORDERABLES Final Res ult [facility] [place] [address] * Critical Result Callback Chemistry (02/20/2025 8:49 AM CDT) Date Notified 20250220 Time Notified 0957 [facility] NICOLAS TestName Lactate [facility] N[facility] Called/Read Back Samm NICOLASH Credentials RN [facility]AM NICOLAS Called By [facility] Blood 02/20/2025 8:49 AM CDT 02/20/2025 9:26 AM CDT us Divine Ventura AEROPLANE PILOT LAB BLOOD ORDERABLES Final Res ult [facility] [place] [address] * Critical Result Callback Chemistry (02/20/2025 8:49 AM CDT) Date Notified 20250220 Time Notified 922 [facility] TestName Sepsis [facility]actate [facility] Called/Read Back Samm [facility] Credentials RN [facility] Called By [facility] Blood 02/20/2025 8:49 AM CDT 02/20/2025 9:17 AM CDT us Sindey Malik MD LAB BLOOD ORDERABLES Fin al Result Performing Organization Address City/[facility]/ZIP Co de Phone Number [facility] [place] [address] * Urea nitrogen, urine, random (02/20/2025 8:49 AM CDT) Urea nitrogen, ur 294 mg/dL Comment: Interpretive Data No reference range established. Current interpretive data was last revised 2019. Urine 02/20/2025 8:49 AM CDT 02/20/2025 9:27 AM CDT us Hood Pacheco MD LAB URINE ORDERABLES Final Resul t Performing Organization Address City/[facility]/ZIP Co de Phone Number [facility] [place] [address] * (ABNORMAL) Protein / creatinine ratio, urine, random (02/20/2025 8:49 AM CDT) [facility] Protein, ur, quant 63.9 mg/dL Comment: Interpretive Data No reference range established. Current interpretive data was last revised 2019. Creatinine Ur 255.6 mg/dL [facility] Comment: Interpretive Data No reference range established. Current interpretive data was last revised 2019. Protein/creatinin e ratio 250.0(H) 0.0 - 180.0 mg/g CR [facility] Urine 02/20/2025 8:49 AM CDT 02/20/2025 9:27 AM CDT us Divine Ventura NP LAB URINE ORDERABLES Final Res ult Performing Organization Address [facility] Co de Phone Number [facility] Department [place] [address] * Hepatitis panel, acute Blood (02/20/2025 8:49 AM CDT) [facility] Hep A IgM Nonreactive Nonreactive Hep B core IgM Nonreactive Nonreactive [facility] Hep C Ab Nonreactive Nonreactive [facility] Comment:Antibodies to HCV no t detected. Does NOT exclude the possibility of recent exposure to HCV. Current interpretive data was last revised on 22 HepBsAg Nonreactive Nonreactive [facility] Blood 02/20/2025 8:49 AM CDT 02/20/2025 9:26 AM CDT us Divine Ventura NP LAB MICROBIOLOGY - GENERAL ORD ERABLES Final Result Performing Organization Address City/[facility]/ZIP Co de Phone Number [facility] [place] [place] [address] * Sodium, urine, random (02/20/2025 8:49 AM CDT) [facility] Sodium, ur <20 mmol/L Comment: Repeated and Verified Interpretive Data No reference range established. Current interpretive data was last revised 2019. Urine 02/20/2025 8:49 AM CDT 02/20/2025 9:27 AM CDT us Divine Ventura AEROPLANE PILOT LAB URINE ORDERABLES Final Res ult Performing Organization Address [facility] Co de Phone Number [facility] [place] [address] * Osmolality, urine (02/20/2025 8:49 AM CDT) Osmo, ur 362 mOsm/kg Urine 02/20/2025 8:49 AM CDT 02/20/2025 9:27 AM CDT us Divine Ventura AEROPLANE PILOT LAB URINE ORDERABLES Final Res ult Performing Organization Address [facility] de Phone Number [facility] [place] [address] * Creatinine, urine, random (02/20/2025 8:49 AM CDT) Creatinine Ur 255.6 mg/dL Comment: Interpretive Data No reference range established. Current interpretive data was last revised 2019. Urine 02/20/2025 8:49 AM CDT 02/20/2025 9:27 AM CDT us Divine Ventura AEROPLANE PILOT LAB URINE ORDERABLES Final Res ult Performing Organization Address [facility] de Phone Number [facility] [place] [address] * aPTT (02/20/2025 8:49 AM CDT) aPTT 37 28 - 38 sec Comment: Interpretive Data Heparin therapeutic range: 66.0 - 100.0 seconds. Range based on correlation with therapeutic heparin activity range of 0.3 - 0.7 Units/mL. Current interpretive data was last revised on 2023. Blood 02/20/2025 8:49 AM CDT 02/20/2025 9:20 AM CDT Divine Ventura NP LAB BLOOD ORDERABLES Final Res ult Performing Organization Address [facility] de Phone Number [facility] [place] [address] * (ABNORMAL) Protime-INR (02/20/2025 8:49 AM CDT) PT 21.6(H) 9.7 - 13.0 sec INR 1.97(H) 0.90 - 1.20 [facility] Comment: Interpretive data Oral anticoagulant therapeutic ranges: Venous thromboembolism prophylaxis or treatment: 2.0-3.0 CARDIOLOGY Standard range: 2.0-3.0 High-intensity range: 2.5-3.5 Refer to indication-specific guidelines for appropriate target ranges for prosthetic heart valve replacement. Current interpretive data was last revised on 2019. Blood 02/20/2025 8:49 AM CDT 02/20/2025 9:20 AM CDT Divine Ventura NP LAB BLOOD ORDERABLES Final Res ult Performing Organization Address [facility] de Phone Number [facility] [place] [address] * (ABNORMAL) CBC without differential (02/20/2025 8:49 AM CDT) WBC 2.8(L) 3.8 - 9.9 K/cumm Hgb 11.8(L) 13.0 - 17.5 g/dL [facility] Hct 35.2(L) 38.9 - 50.3 % [facility] Plt 76(L) 150 - 400 K/cumm [facility] MPV 12.3 9.1 - 12.3 fL [facility] RBC 3.75(L) 4.30 - 5.80 M/cumm [facility] MCV 93.9 81.3 - 96.4 fL [facility] MCH 31.5 27.1 - 33.3 pg [facility] MCHC 33.5 32.3 - 35.7 g/dL [facility] RDW CV 15.4(H) 11.1 - 14.9 % [facility] RDW SD 53.0(H) 35.7 - 48.1 fL [facility] NRBC abs 0.00 0.00 - 0.01 K/cumm [facility] Blood 02/20/2025 8:49 AM CDT 02/20/2025 9:26 AM CDT us Divine Ventura AEROPLANE PIL[employer] LAB BLOOD ORDERABLES Final Res ult Performing Organization Address [facility] Co de Phone Number [facility] Department [place] [address] * Osmolality, blood (02/20/2025 8:49 AM CDT) Osmo 282 275 - 300 mOsm/kg Blood 02/20/2025 8:49 AM CDT 02/20/2025 9:25 AM CDT us Divine Ventura AEROPLANE PILOT LAB BLOOD ORDERABLES Final Res ult Performing Organization Address [facility] Co de Phone Number [facility] Department [place] [address] * Magnesium (02/20/2025 8:49 AM CDT) Magnesium 1.6 1.4 - 2.5 mg/dL Blood 02/20/2025 8:49 AM CDT 02/20/2025 9:26 AM CDT us Hood Pacheco MD LAB BLOOD ORDERABLES Final Resul t Performing Organization Address City/[facility] Co de Phone Number [facility] Department [place] [address] * (ABNORMAL) Bilirubin, direct (02/20/2025 8:49 AM CDT) Bilirubin, direct 0.6(H) 0.1 - 0.3 mg/dL Blood 02/20/2025 8:49 AM CDT 02/20/2025 9:26 AM CDT Divine Ventura NP LAB BLOOD ORDERABLES Final Res ult [facility] Department [place] [address] * (ABNORMAL) Lipid panel (02/20/2025 8:49 AM CDT) Cholesterol 88 30 - 199 mg/dL Comment: Interpretive Data Ages < or = 19 years Acceptable: <170 mg/dL Borderline high: 170-199 mg/dL High: >or= 200 mg/dL Ages > or = 20 years Desirable: <200 mg/dL Borderline high: 200-239 mg/dL High: >or= 240 mg/dL Literature References: 1. Expert Panel on Integrated Guidelines for Cardiovascular Health and Risk Reduction in Children and Adolescents. Pediatrics 2011;128:S213 2. NCEP Expert Panel. Circulation 2004;110:227 Current Interpretive Data was last revised on 2018. Triglycerides 131 <=149 mg/dL [facility] Comment: Interpretive Data Ages < or = 9 years Acceptable: <75 mg/dL Borderline high: 75-99 mg/dL High: >or= 100 mg/dL Ages 10 to 20 years Acceptable: <90 mg/dL Borderline high: 90-129 mg/dL High: >or= 130 mg/dL Ages > or = 20 years Desirable: <150 mg/dL Borderline high: 150-199 mg/dL High: 200-499 mg/dL Very high: >or= 499 mg/dL Literature References: 1. Expert Panel on Integrated Guidelines for Cardiovascular Health and Risk Reduction in Children and Adolescents. Pediatrics 2011;128:S213 2. NCEP Expert Panel. Circulation 2004;110:227 Current Interpretive Data was last revised on 2018. HDL 21(L) >=40 mg/dL [facility] Comment: Interpretive Data Ages < or = 19 years Acceptable: >45 mg/dL Borderline low: 40-45 mg/dL Low: <40 mg/dL Ages > or = 20 years Desirable: >or= 60 mg/dL Low: <40 mg/dL Literature References: 1. Expert Panel on Integrated Guidelines for Cardiovascular Health and Risk Reduction in Children and Adolescents. Pediatrics 2011;128:S213 2. NCEP Expert Panel. Circulation 2004;110:227 Current Interpretive Data was last revised on 2018. LDL, calculated 43 <=129 mg/dL [facility] Comment: Interpretive Data Ages < or = 19 years Acceptable: <110 mg/dL Borderline high: 110-129 mg/dL High: >or= 130 mg/dL Ages > or = 20 years Optimal: <100 mg/dL Near optimal: 100-129 mg/dL Borderline high: 130-159 mg/dL High: >160 mg/dL Calculated using the Carter LDL-C estimating equation. This equation was implemented on 2024. Prior to this date LDL-C was estimated using the Friedewald equation. Literature References: 1. Expert Panel on Integrated Guidelines for Cardiovascular Health and Risk Reduction in Children and Adolescents. Pediatrics 2011;128:S213 2. NCEP Expert Panel. Circulation 2004;110:227 3. Carter Mcdonough et al. CRISTOBAL Cardiol. 2019March 23;5(5):540-548. doi: [email or web address] Current Interpretive Data was last revised on 2024. Non-HDL Cholesterol 67 mg/dL [facility] Comment: Interpretive Data Ages < or = 19 years Acceptable: <120 mg/dL Borderline high: 120-144 mg/dL High: >145 mg/dL Ages > or = 20 years When triglycerides are >200 mg/dL, Non-HDL cholesterol is a secondary target of therapy with treatment goals that are 30 mg/dL greater than the LDL cholesterol target. Literature References: 1. Expert Panel on Integrated Guidelines for Cardiovascular Health and Risk Reduction in Children and Adolescents. Pediatrics 2011;128:S213 2. NCEP Expert Panel. Circulation 2004;110:227 Current Interpretive Data was last revised on 2018. Chol/HDL ratio 4 [facility] Blood 02/20/2025 8:49 AM CDT 02/20/2025 9:26 AM CDT Narrative HAM NICOLAS - 02/20/2025 4:02 PM CDT Reflex us Hood Pacheco MD LAB BLOOD ORDERABLES Final Resul t [facility] Department [place] [address] * (ABNORMAL) Comprehensive metabolic panel (02/20/2025 8:49 AM CDT) Sodium 131(L) 135 - 145 mmol/L Potassium, pl 3.9 3.3 - 4.9 mmol/L [facility] Chloride 93(L) 97 - 110 mmol/L [facility] CO2 25 22 - 32 mmol/L [facility] Anion gap 13 2 - 15 mmol/L [facility] BUN 37(H) 6 - 25 mg/dL [facility] Creatinine 1.82(H) 0.80 - 1.30 mg/dL [facility] Glucose 47(C) 70 - 199 mg/dL [facility] Comment: Glycolysis suspected; suggest sending a ware top tube. Reviewed Interpretive Data Fasting glucose >/= 126 mg/dl is diagnostic for diabetes. Fasting is defined as no caloric intake for at least 8 hours. Fasting glucose between 100 mg/dl to 125 mg/dl is diagnostic of prediabetes. In a patient with classic symptoms of hyperglycemia or hyperglycemic crisis, a random glucose >/= 200 mg/dl is diagnostic for diabetes. In the absence of unequivocal hyperglycemia, results should be confirmed by repeat testing. The classification and Diagnosis of Diabetes Diabetes Care 202; 46: S19-S40. Current interpretive data was last revised 2022. Calcium 7.7(L) 8.5 - 10.3 mg/dL [facility] Bilirubin, total 1.2 0.1 - 1.2 mg/dL [facility] Protein, pl 6.9 6.5 - 8.5 g/dL [facility] Albumin 3.1(L) 3.5 - 5.0 g/dL [facility] Alk phos 52 40 - 130 Units/L [facility] ALT 44 7 - 55 Units/L [facility] AST 71(H) 10 - 50 Units/L [facility] Blood 02/20/2025 8:49 AM CDT 02/20/2025 9:26 AM CDT Divine Ventura AEROPLANE PILOT LAB BLOOD ORDERABLES Final Res ult Performing Organization Address City/[facility] Co de Phone Number [facility] Department [place] [address] * (ABNORMAL) Urinalysis reflex to microscopic (02/20/2025 7:59 AM CDT) Color, ur Rina Yellow Clarity, ur Cloudy(A) Clear [facility] Specific gravity, ur 1.023 1.003 - 1.030 [facility] pH, urine 5.5 [facility] Comment: Interpretive Data U rine pH is affected by diet, medications, systemic acid-base disturbances, and renal tubular function. pH may affect urinary stone formation. For example, urine pH below 6.0 may help reduce the tendency for calcium phosphate stones and pH greater than 6.0 may reduce the tendency for uric acid stone formation. Source: [facility] Current Interpretive Data was last revised on 2017 Protein, ur ql 1+(A) Negative [facility] Glucose, ur ql Negative Negative [facility] Ketones, ur Negative Negative [facility] Bilirubin, ur Negative Negative [facility] Blood, ur Negative Negative [facility] Urobilinogen, ur <2.0 <2.0 mg/dL [facility] Nitrite, ur Negative Negative [facility] Leukocyte esterase, ur Negative Negative [facility] UA reflex comment Reflex to microscopic UA will be performed. [facility] Urine 02/20/2025 7:59 AM CDT 02/20/2025 8:09 AM CDT Marc Vasquez MD PhD LAB URINE ORDERABLE S Final Result Performing Organization Address City/[facility] Co de Phone Number [facility] Department [place] [address] * Legionella antigen Urine (02/20/2025 7:59 AM CDT) Pathologist [facility] Legionella Ag Negative Negative Comment: Interpretive Data This test detects only Legionella pneumophila serogroup 1 antigen. Testing performed by [facility] ([phone]). Current interpretive data was last revised on 2020. Urine 02/20/2025 7:59 AM CDT 02/20/2025 8:11 AM CDT us Facundo Butt AER[employer]LANE PIL[employer] LAB MICROBIOLOGY - GENER AL ORDERABLES Final Result Performing Organization Address [facility] Co de Phone Number [facility] [place] [address] * (ABNORMAL) Urinalysis, microscopic only (02/20/2025 7:59 AM CDT) Pathologist [facility] WBC, ur 0-5 0 - 5 /HPF RBC, ur 0-2 0 - 2 /HPF [facility] Epithelial cells, squamous, ur 1-5 0 - 5 /HPF [facility] Bacteria, ur Trace(A) [facility] Yeast, ur TRACE [facility] Mucous, ur Present(A) [facility] Hyaline casts, ur >50(A) 0 - 10 /LPF [facility] Urine 02/20/2025 7:59 AM CDT 02/20/2025 8:09 AM CDT us Marc Vasquez MD PhD LAB URINE ORDERABLE S Final Result Performing Organization Address [facility] Co de Phone Number [facility] [place] [address] * (ABNORMAL) Sepsis Lactate w/ Reflex (02/20/2025 5:25 AM CDT) Sepsis Lactate 3.6(H) 0.7 - 2.0 mmol/L Blood 02/20/2025 5:25 AM CDT 02/20/2025 5:29 AM CDT us Sidney Malik MD LAB BLOOD ORDERABLES Fin al Result Performing Organization Address [facility]/ZIP Co de Phone Number [facility] [place] [address] * POCT glucose (02/20/2025 2:17 AM CDT) Pathologist [facility] Glucose, POC 103 70 - 199 mg/dL Blood 02/20/2025 2:17 AM CDT 02/20/2025 2:17 AM CDT us Marc Vasquez MD PhD LAB POCT ORDERABLES - DEVICE Final Result Performing Organization Address [facility] de Phone Number [facility] [place] [address] * (ABNORMAL) Sepsis Lactate w/ Reflex (02/20/2025 1:53 AM CDT) [facility] Sepsis Lactate 6.4(C) 0.7 - 2.0 mmol/L Blood 02/20/2025 1:53 AM CDT 02/20/2025 2:03 AM CDT us Sidney Malik MD LAB BLOOD ORDERABLES Fin al Result Performing Organization Address City/[facility] Co de Phone Number [facility] [place] [address] * Critical Result Callback Chemistry (02/20/2025 1:53 AM CDT) Date Notified 20250220 Time Notified 212 [facility] TestName Sepsis Lactate [facility] N[facility] Called/Read Back Sidney [facility] Credentials MD [facility] NICOLAS Called By TRAE [facility] Blood 02/20/2025 1:53 AM CDT 02/20/2025 2:03 AM CDT us Sidney Malik MD LAB BLOOD ORDERABLES Fin al Result Performing Organization Address [facility] Co de Phone Number [facility] [place] [address] * (ABNORMAL) POCT glucose (02/20/2025 12:07 AM CDT) Glucose, POC 55(L) 70 - 199 mg/dL Blood 02/20/2025 12:0 7 AM CDT 02/20/2025 12:07 AM CDT us Marc Vasquez MD PhD LAB POCT ORDERABLES - DEVICE Final Result Performing Organization Address [facility] de Phone Number [facility] Department [place] [address] * (ABNORMAL) POCT glucose (02/19/2025 11:41 PM CDT) Glucose, POC 58(L) 70 - 199 mg/dL Blood 02/19/2025 11:4 1 PM CDT 02/19/2025 11:41 PM CDT Marc Vasquez MD PhD LAB POCT ORDERABLES - DEVICE Final Result Performing Organization Address [facility] de Phone Number [facility] [place] [address] * (ABNORMAL) Troponin I high-sensitivity 6-hour (02/19/2025 9:58 PM CDT) Trop I hs 116(H) <=35 ng/L Comment: Interpretive Data For further hscTnI resources including the diagnostic algorithm and an aid in interpretation, copy and paste this link: https://bjhlab.testcatalog.org/show/[email or web address] Current Interpretive Data last revised 2020. Trop I hs delta See Comment ng/L [facility] Comment:Inappropriate collec tion time to report a delta. Trop I hs pct delta See Comment % [facility] Comment:Inappropriate collec tion time to report a delta. Trop I hs interp See Comment [facility] Comment:Inappropriate collec tion time to report a delta. Blood 02/19/2025 9:58 PM CDT 02/19/2025 10:19 PM CDT Result [facility] Idalia Calderón MD LAB BLOOD ORDERABLES Final Result Performing Organization Address [facility] Co de Phone Number [facility] Department [place] [place] [address] * (ABNORMAL) Troponin I high-sensitivity 4-hour (02/19/2025 9:58 PM CDT) Trop I hs 99(H) <=35 ng/L Comment: Interpretive Data For further hscTnI resources including the diagnostic algorithm and an aid in interpretation, copy and paste this link: [email or web address]/[email or web address] Current Interpretive Data last revised 2020. Trop I hs delta See Comment ng/L [facility] Comment:Inappropriate collec tion time to report a delta. Trop I hs pct delta See Comment % [facility] Comment:Inappropriate collec tion time to report a delta. Trop I hs interp See Comment [facility] Comment:Inappropriate collec tion time to report a delta. Blood 02/19/2025 9:58 PM CDT 02/19/2025 10:19 PM CDT Idalia Calderón MD LAB BLOOD ORDERABLES Final Result Performing Organization Address City/[facility]/ZIP Co de Phone Number [facility] Department [place] [address] * (ABNORMAL) Troponin I high-sensitivity 2-hour (02/19/2025 9:58 PM CDT) Trop I hs 99(H) <=35 ng/L Comment: Interpretive Data For further hscTnI resources including the diagnostic algorithm and an aid in interpretation, copy and paste this link: [email or web address]/show/[email or web address] Current Interpretive Data last revised 2020. Trop I hs pct delta -20(C) % [facility] Trop I hs interp Significa nt(C) [facility] Blood 02/19/2025 9:58 PM CDT 02/19/2025 10:19 PM CDT Idalia Calderón MD LAB BLOOD ORDERABLES Final Result Performing Organization Address City/[facility]/ZIP Co de Phone Number [facility] Department [place] [address] * (ABNORMAL) Lactate (02/19/2025 9:58 PM CDT) Pathologist [facility] Lactate 5.9(C) 0.7 - 2.0 mmol/L Blood 02/19/2025 9:58 PM CDT 02/19/2025 10:19 PM CDT Sidney Malik MD LAB BLOOD ORDERABLES Fin al Result [facility] Department [place] [place] [address] * Critical result callback Cardio chemistry (02/19/2025 9:58 PM CDT) Pathologist [facility] Date Notified 20250219 Time Notified 2303. [facility] Test name Trop I hs 2hr p [facility] Called/Read Back Sidney CHEEK [facility] Credentials [facility] Called By TRAE [facility] Blood 02/19/2025 9:58 PM CDT 02/19/2025 10:19 PM CDT us Idalia Calderón MD LAB BLOOD ORDERABLES Final Result [facility] Department [place] [address] * Critical Result Callback Chemistry (02/19/2025 9:58 PM CDT) [facility] Date Notified 20250219 Time Notified 2244 [facility] TestName Lactate [facility] Called/Read Back Abraham Lutz [facility] Credentials RN [facility] Called By scott [facility] Blood 02/19/2025 9:58 PM CDT 02/19/2025 10:19 PM CDT us Sidney Malik MD LAB BLOOD ORDERABLES Fin al Result Performing Organization Address [facility] Co de Phone Number [facility] Department [place] [address] * Respiratory pathogen panel Nasopharyngeal (02/19/2025 9:58 PM CDT) [facility] Influenza A RNA Not Detected Not Detected Influenza B RNA Not Detected Not Detected [facility] RSV RNA Not Detected Not Detected [facility] COVID-19 RNA Not Detected Not Detected [facility] Coronavirus 229E RNA Not Detected Not Detected [facility] Coronavirus HKU1 RNA Not Detected Not Detected [facility] Coronavirus NL63 RNA Not Detected Not Detected [facility] Coronavirus OC43 RNA Not Detected Not Detected [facility] Adenovirus DNA Not Detected Not Detected [facility] Metapneumovirus RNA Not Detected Not Detected [facility] Rhinovirus/Enterov irus RNA Not Detected Not Detected [facility] Parainfluenza 1 RNA Not Detected Not Detected [facility] Parainfluenza 2 RNA Not Detected Not Detected [facility] Parainfluenza 3 RNA Not Detected Not Detected [facility] Parainfluenza 4 RNA Not Detected Not Detected [facility] B. pertussis DNA Not Detected Not Detected [facility] B. parapertussis DNA Not Detected Not Detected [facility] C. pneumoniae DNA Not Detected Not Detected [facility] M. pneumoniae DNA Not Detected Not Detected [facility] Nasopharyngeal 02/19/2025 9: 58 PM CDT 02/19/2025 10:25 PM CDT Narrative CERNER BJ - 02/19/2025 11:25 PM CDT Is the Patient experiencing symptoms consistent with COVID?->Unknown Surveillance testing for transplant patient?->No Interpretive Data The Cuff-Protect FilmArray Respiratory Panel (RP2.1) assay is a multiplexed real-time PCR based nucleic acid test capable of simultaneous qualitative detection and identification of multiple respiratory viral and bacterial nucleic acids, including SARS Coronavirus 2 (the causative agent of COVID-19). The following bacteria, viruses and virus subtypes can be identified using the FilmArray RP2.1 assay: Bordetella pertussis, Bordetella parapertussis, Chlamydia pneumoniae, Mycoplasma pneumoniae, Adenovirus, SARS Coronavirus 2, seasonal coronaviruses (Coronavirus HKU1, Coronavirus NL63, Coronavirus 229E, and Coronavirus OC43), Influenza A, Influenza A subtype H1, Influenza A subtype H3, Influenza A subtype 2009 H1, Influenza B, Metapneumovirus, Parainfluenza 1, Parainfluenza 2, Parainfluenza 3, Parainfluenza 4, RSV, Rhinovirus/Enterovirus. Due to the genetic similarity between human Rhinovirus and Enterovirus, the FilmArray RP2.1 assay cannot reliably differentiate them. Coronavirus OC43 may cross-react with some isolates of Coronavirus HKU1. A dual positive result may be due to cross-reactivity or may indicate a co- infection. The detection and identification of specific viral and bacterial nucleic acids from individuals exhibiting signs and symptoms of a respiratory infection aids in the diagnosis of respiratory infection if used in conjunction with other clinical and epidemiological information. The results of this test should not be used as the sole basis for diagnosis, treatment, or other management decisions. Negative results in the setting of a respiratory illness may be due to infection with pathogens that are not detected by this test. Positive results do not rule out infection/co-infection with other organisms. The agent(s) detected by the FilmArray RP2.1 may not be the definite cause of disease. Additional testing (lab, imaging, etc.) may be necessary when evaluating a patient with possible respiratory tract infection. The FilmArray RP2.1 assay has FDA clearance for testing of AEROPLANE PILOT swabs. The performance of additional specimen types has been assessed by the performing laboratory. The performance characteristics of this assay have been determined by [facility] Molecular Infectious Disease Laboratory. Current interpretive data was last revised on 22. Sidney Malik MD LAB MICROBIOLOGY - [facility] AL ORDERABLES Final Result [facility] Department [place] [address] * Blood culture Blood Peripheral (02/19/2025 9:58 PM CDT) Report Final Report: No growth Blood (Peripheral) 02/19/2025 9:58 PM CDT 02/19/2025 10:27 PM CDT [facility] - 02/24/2025 7:01 AM CDT From a different site than #1. Draw Blood cultures before administration of Antibiotics Collection->Peripheral 1. Blood cultures are incubated for 4 days on a continuously monitored blood culture system. The first report of a negative culture is issued within 24 hours of receipt of the specimen in the laboratory. 2. Positive culture results are reported as soon as they are detected. 3. The most important factor for detection of microbes in the setting of bloodstream infection is the volume of blood submitted for culture. Failure to collect an optimal blood volume can result in false negative blood cultures. 4. For pediatric patients, the recommended blood volume to collect follows a weight based strategy. See the electronic test catalog for collection instructions. 5. For positive blood cultures, a rapid molecular test may be performed for organism identification using the lakeshia ePlex blood culture identification panel for gram positive (BCID-GP) and gram negative (BCID-GN) organisms. This nucleic acid amplification test detects microbial DNA in positive blood culture broth. This assay has been cleared by the [place] Food and Drug Administration and its performance characteristics have been verified by the [facility] Microbiology Laboratory. For questions about this culture, contact the Microbiology Laboratory at [phone]. Interpretive data was last revised on 24. Sidney Malik MD LAB MICROBIOLOGY - GENER AL ORDERABLES Final Result [facility] Department [place] [address] * Blood culture Blood Peripheral (02/19/2025 9:58 PM CDT) Report Final Report: No growth Blood (Peripheral) 02/19/2025 9:58 PM CDT 02/19/2025 10:27 PM CDT Narrative [facility] - 02/24/2025 7:01 AM CDT Draw Blood cultures before administration of Antibiotics Collection->Peripheral 1. Blood cultures are incubated for 4 days on a continuously monitored blood culture system. The first report of a negative culture is issued within 24 hours of receipt of the specimen in the laboratory. 2. Positive culture results are reported as soon as they are detected. 3. The most important factor for detection of microbes in the setting of bloodstream infection is the volume of blood submitted for culture. Failure to collect an optimal blood volume can result in false negative blood cultures. 4. For pediatric patients, the recommended blood volume to collect follows a weight based strategy. See the electronic test catalog for collection instructions. 5. For positive blood cultures, a rapid molecular test may be performed for organism identification using the lakeshia ePlex blood culture identification panel for gram positive (BCID-GP) and gram negative (BCID-GN) organisms. This nucleic acid amplification test detects microbial DNA in positive blood culture broth. This assay has been cleared by the [place] Food and Drug Administration and its performance characteristics have been verified by the [facility] Microbiology Laboratory. For questions about this culture, contact the Microbiology Laboratory at [phone]. Interpretive data was last revised on 24. Sidney Malik MD LAB MICROBIOLOGY - GENER AL ORDERABLES Final Result Performing Organization Address City/[facility] Co de Phone Number [facility] Department [place] [address] * Blood gas, venous (02/19/2025 9:58 PM CDT) pH, Venous 7.33 7.32 - 7.43 PCO2, Venous 47 40 - 50 mmHg [facility] PO2, Venous 49 mmHg [facility] Comment: Interpretive Data No Reference Range Established Current Interpretive Data was last revised on 2018. HCO3 Venous, Calculated 25 20 - 30 mmol/L [facility] BE, venous -2 mmol/L [facility] Comment: Interpretive Data No Reference Range Established Current Interpretive Data was last revised on 2018. Blood 02/19/2025 9:58 PM CDT 02/19/2025 10:13 PM CDT us Sidney Malik MD LAB BLOOD ORDERABLES Fin al Result [facility] Department [place] [address] * XR Chest PA Lateral 2 Views (02/19/2025 9:40 PM CDT) Anatomical Region Laterality Modality Body, Chest N/A Computed Radiogr aphy 02/19/2025 11:3 3 PM CDT Impressions 02/20/2025 8:34 AM CDT Comparison is made to CT chest 11/15/2024 Postsurgical changes of median sternotomy, sternotomy wires with multiple fractures including the 2 most inferior and the superiormost wires. There is consolidation of the left lower lobe with air bronchograms and a small left pleural effusion, findings suspicious for infectious lobar pneumonia or possibly in the setting of aspiration given history of vomiting. No right parenchymal consolidation or pleural effusion. No pneumothorax. Dictated by: Mimi Gil MD The radiology attending physician has personally reviewed this study, and had reviewed and/or edited this written report and agrees with it. Electronically signed by: Anton Petersen M.D., MPH Narrative 02/20/2025 8:34 AM CDT EXAMINATION: 2 view chest radiograph Procedure Note Anton Petersen MD - 02/20/2025 EXAMINATION: 2 view chest radiograph IMPRESSION: Comparison is made to CT chest 11/15/2024 Postsurgical changes of median sternotomy, sternotomy wires with multiple fractures including the 2 most inferior and the superiormost wires. There is consolidation of the left lower lobe with air bronchograms and a small left pleural effusion, findings suspicious for infectious lobar pneumonia or possibly in the setting of aspiration given history of vomiting. No right parenchymal consolidation or pleural effusion. No pneumothorax. Dictated by: Mimi Gil MD The radiology attending physician has personally reviewed this study, and had reviewed and/or edited this written report and agrees with it. Electronically signed by: Anton Petersen M.D., MPH us Sidney Malik MD IMG XR PROCEDURES Final Result * [place] CRITICAL CARE ILL/INJURED PATIENT INIT 30-74 MIN (02/19/2025 9:31 PM CDT) Narrative Marc Vasquez MD PhD - 02/19/2025 9:31 PM CDT Marc Vasquez MD PhD 02/20/2025 6:23 AM Critical Care Performed by: Marc Vasquez MD PhD Authorized by: Marc Vasquez MD PhD Critical care provider statement: As reflected in the history, physical exam, orders, notes, and/or MDM, I was personally present while the patient was critically ill and provided critical care services for 60 minutes, excluding time involved in separately billable procedures. Critical care was necessary to treat or prevent imminent or life-threatening deterioration of the following condition(s): sepsis and pneumonia Critical care was time spent by me providing the following: continuous telemetry, continuous pulse oximetry, interpretation of bedside monitors, imaging, and arterial/venous lab draws, serial bedside patient exams, serial laboratory checks and resuscitation with fluids supplemental oxygen obtain appropriate cultures and empiric broad coverage antibiotics I provided emergent necessary critical care medicine services to this patient. I ordered and reviewed test results and/or imaging studies. I spent time discussing the management of this critically ill patient with consultants and the medical staff. I spent time discussing the management and therapeutic options for this critically ill patient with the patient themselves or with the appropriate designated surrogate decision-maker. I spent time documenting in the medical record. us Marc Vasquez MD PhD IN CLINIC/BEDSIDE O RDERABLES Final Result * (ABNORMAL) Troponin I high-sensitivity series (baseline, 2hr, 4hr, 6hr) (02/19/2025 8:12 PM CDT) Trop I hs 123(H) <=35 ng/L Comment: Interpretive Data For further hscTnI resources including the diagnostic algorithm and an aid in interpretation, copy and paste this link: [email or web address]/show/[email or web address] Current Interpretive Data last revised 2020. Blood 02/19/2025 8:12 PM CDT 02/19/2025 8:31 PM CDT Marc Vasquez MD PhD LAB BLOOD ORDERABLE S Final Result [facility] Department [place] [address] * (ABNORMAL) eGFR (02/19/2025 8:12 PM CDT) eGFR 35(L) >=60 mL/min/1. 73 m2 Comment: Interpretive Data Reference Interval Normal >/= 90 mL/min/1.73m2 Mildly decreased* 60 - 89 mL/min/1.73m2 Mildly to moderately decreased 45 - 59 mL/min/1.73m2 Moderately to severely decreased 30 - 44 mL/min/1.73m2 Severely decreased 15 - 29 mL/min/1.73m2 Kidney Failure < 15 mL/min/1.73m2 *Relative to young adult level Estimated glomerular filtration rate is determined by the 2020 CKD-EPI equation recommended by the National Kidney Foundation (A Unifying Approach to GFR Estimation: Recommendations of the NKF-ASK Task Force on Reassessing the Inclusion of Race in Diagnosing Kidney Disease, JASN 2020). The CKD-EPI equation should not be used for patients with unstable renal function and has not been validated in children and those over 70. Current interpretive data was last reviewed 2021. Blood 02/19/2025 8:12 PM CDT 02/19/2025 8:30 PM CDT us Marc Vasquez MD PhD LAB BLOOD ORDERABLE S Final Result [facility] Department [place] [address] * (ABNORMAL) Differential, auto (02/19/2025 8:12 PM CDT) Neutrophil abs 3.3 1.5 - 6.5 K/cumm Imm gran abs 0.4(H) 0.0 - 0.1 K/cumm [facility] Lymphocyte abs 0.7(L) 0.8 - 3.3 K/cumm [facility] Monocyte abs 0.7 0.2 - 0.8 K/cumm [facility] Eosinophil abs 0.0 0.0 - 0.5 K/cumm [facility] Basophil abs 0.0 0.0 - 0.1 K/cumm [facility] Neutrophil pct 64.4 % [facility] Comment: Confirmed by smear review Interpretive Data Percent cell count reference ranges are not reported, since discordance with absolute values may lead to misinterpretation of CBC data. Current Interpretive Data was last revised on 2018. Imm gran pct 7.4 % [facility] Comment: Interpretive Data Percent cell count reference ranges are not reported, since discordance with absolute values may lead to misinterpretation of CBC data. Current Interpretive Data was last revised on 2018. Lymphocyte pct 13.8 % [facility] Comment: Interpretive Data Percent cell count reference ranges are not reported, since discordance with absolute values may lead to misinterpretation of CBC data. Current Interpretive Data was last revised on 2018. Monocyte pct 13.6 % [facility] Comment: Interpretive Data Percent cell count reference ranges are not reported, since discordance with absolute values may lead to misinterpretation of CBC data. Current Interpretive Data was last revised on 2018. Eosinophil pct 0.0 % [facility] Comment: Interpretive Data Percent cell count reference ranges are not reported, since discordance with absolute values may lead to misinterpretation of CBC data. Current Interpretive Data was last revised on 2018. Basophil pct 0.8 % [facility] Comment: Interpretive Data Percent cell count reference ranges are not reported, since discordance with absolute values may lead to misinterpretation of CBC data. Current Interpretive Data was last revised on 2018. Blood 02/19/2025 8:12 PM CDT 02/19/2025 8:31 PM CDT us Marc Vasquez MD PhD LAB BLOOD ORDERABLE S Final Result [facility] Department [place] [address] * (ABNORMAL) Pro B-type natriuretic peptide (02/19/2025 8:12 PM CDT) NT-proBNP 9,915(H) <=300 pg/mL Comment: Interpretive Comments: A. Dyspnea in Acute Care Setting All Ages: < 300 pg/ml, acute heart failure unlikely. < 50 yrs: 300 - 450 pg/ml, further investigation warranted. > 450 pg/ml, acute heart failure likely. 50 - 74 yrs: 300 - 900 pg/ml, further investigation warranted. > 900 pg/ml, acute heart failure likely . > or = 75 yrs: 450 - 1800 pg/ml, further investigation warranted. > 1800 pg/ml, acute heart failure likely. B. Non-acute Setting < 75 yrs < 125 pg/ml, rules out heart failure. > or = 125 pg/ml, further investigation warranted. > or = 75 yrs < 450 pg/ml, rules out heart failure. > or = 450 pg/ml, further investigation warranted. - Knowledge of each individual patient's NT-proBNP range may be more useful than using similar cut-points for every patient. Please note that marked elevations in NT-proBNP levels may be observed in state other than Left Ventricular Congestive Failure, including: acute coronary syndromes, right heart strain/failure (including pulmonary embolism and cor pulmonale), critical illness, renal failure, as well as advanced age. - References: 1. Holli HIGGINS et.al. Eur Heart J. 2006:27:330-337. 2. Kermit MARTINEZ, Melissa ARANDA. J. AM Kendra Cardiol: Cardiovasc Imag. 2009;2: 216- 225. Interpretive Data Last Revised Date: 2018. Blood 02/19/2025 8:12 PM CDT 02/19/2025 8:30 PM CDT us Sidney Malik MD LAB BLOOD ORDERABLES Fin al Result Performing Organization Address City/[facility]/ZIP Co de Phone Number [facility] Department [place] [address] * (ABNORMAL) CBC with auto differential (02/19/2025 8:12 PM CDT) Pathologist [facility] WBC 5.1 3.8 - 9.9 K/cumm Hgb 11.6(L) 13.0 - 17.5 g/dL [facility] Hct 34.8(L) 38.9 - 50.3 % [facility] Plt 92(L) 150 - 400 K/cumm [facility] MPV 12.4(H) 9.1 - 12.3 fL [facility] RBC 3.70(L) 4.30 - 5.80 M/cumm [facility] MCV 94.1 81.3 - 96.4 fL [facility] MCH 31.4 27.1 - 33.3 pg [facility] MCHC 33.3 32.3 - 35.7 g/dL [facility] RDW CV 15.5(H) 11.1 - 14.9 % [facility] RDW SD 53.1(H) 35.7 - 48.1 fL [facility] NRBC abs 0.00 0.00 - 0.01 K/cumm [facility] Blood Venous blood specimen / Unknown 02/19/2025 8:12 PM CDT 02/19/2025 8:31 PM CDT us Marc Vasquez MD PhD LAB BLOOD ORDERABLE S Final Result Performing Organization Address City/[facility]/ZIP Co de Phone Number [facility] Department [place] [address] * Lipase (02/19/2025 8:12 PM CDT) [facility] Lipase 10 10 - 99 Units/L Blood Venous blood specimen / Unknown 02/19/2025 8:12 PM CDT 02/19/2025 8:30 PM CDT Marc Vasquez MD PhD LAB BLOOD ORDERABLE S Final Result Performing Organization Address [facility] [place] [address] * (ABNORMAL) Hemoglobin A1c (02/19/2025 8:12 PM CDT) [facility] Hgb A1C 6.4(H) 4.0 - 5.6 % Estimated Average Glucose 137 mg/dL [facility] Comment: The ADA recommends reporting an estimated Average Glucose (eAG) with all Hemoglobin A1c results using the equation derived from a study of 507 normal and diabetic adults. Minority populations were underrepresented and children were not included. (Diabetes Care 2020; 43(S1): S66-S76). The eAG is not equivalent to a fasting glucose. Blood 02/19/2025 8:12 PM CDT 02/19/2025 8:34 PM CDT Hood Pacheco MD LAB BLOOD ORDERABLES Final Resul t Performing Organization Address [facility] Co de Phone Number [facility] [place] [address] * (ABNORMAL) Comprehensive metabolic panel (02/19/2025 8:12 PM CDT) [facility] Sodium 132(L) 135 - 145 mmol/L Potassium, pl 4.0 3.3 - 4.9 mmol/L [facility] Comment:Hemolyzed; Potassium value may be falsely elevated by as much as 0.3-0.5 mmol/L. Suggest redraw and reanalysis. Chloride 91(L) 97 - 110 mmol/L [facility] CO2 23 22 - 32 mmol/L [facility] Anion gap 18(H) 2 - 15 mmol/L [facility] BUN 29(H) 6 - 25 mg/dL [facility] Creatinine 2.02(H) 0.80 - 1.30 mg/dL [facility] Glucose 66(L) 70 - 199 mg/dL [facility] Comment: Interpretive Data Fasting glucose >/= 126 mg/dl is diagnostic for diabetes. Fasting is defined as no caloric intake for at least 8 hours. Fasting glucose between 100 mg/dl to 125 mg/dl is diagnostic of prediabetes. In a patient with classic symptoms of hyperglycemia or hyperglycemic crisis, a random glucose >/= 200 mg/dl is diagnostic for diabetes. In the absence of unequivocal hyperglycemia, results should be confirmed by repeat testing. The classification and Diagnosis of Diabetes Diabetes Care 2021; 46: S19-S40. Current interpretive data was last revised 2022. Calcium 8.5 8.5 - 10.3 mg/dL [facility] Bilirubin, total 1.8(H) 0.1 - 1.2 mg/dL [facility] Protein, pl 7.3 6.5 - 8.5 g/dL [facility] Albumin 3.2(L) 3.5 - 5.0 g/dL [facility] Alk phos 70 40 - 130 Units/L [facility] ALT 31 7 - 55 Units/L [facility] AST 63(H) 10 - 50 Units/L [facility] Comment:Hemolyzed; result ma y be falsely elevated Blood 02/19/2025 8:12 PM CDT 02/19/2025 8:30 PM CDT us Marc Vasquez MD PhD LAB BLOOD ORDERABLE S Final Result [facility] Department [place] [address] * ECG 12-LEAD (02/19/2025 7:57 PM CDT) Narrative [facility] - 02/19/2025 7:57 PM CDT Marc Vasquez MD PhD 02/19/2025 8:00 PM ECG 12 lead Date/Time: 02/19/2025 7:57 PM Performed by: Marc Vasquez MD PhD Authorized by: Idalia Calderón MD Comments: (19:46) sinus rhythm with frequent PACs and PVCs; left axis deviation; first-degree AV block, left bundle branch block; abnormal EKG. Compared to previous EKG from August 2019 previously noted nonspecific IVCD meets criteria for left bundle branch block, PACs and PVCs are new. Procedure Note Marc Vasquez MD PhD - 02/19/2025 7:57 PM CDT Procedure ECG 12 lead Date/Time: 02/19/2025 7:57 PM Performed by: Marc Vasquez MD PhD Authorized by: Idalia Calderón MD Comments: (19:46) sinus rhythm with frequent PACs and PVCs; left axis deviation;first- degree AV block, left bundle branch block; abnormal EKG. Comparedto previous EKG from August 2019 previously noted nonspecific IVCD meetscriteria for left bundle branch block, PACs and PVCs are new. Marc Vasquez MD PhD 02/19/25 2000 us Marc Vasquez MD PhD ECG ORDERABLES Fin al Result [facility] * POCT glucose (12/15/2024 12:46 PM LITHOGRAPHER HELPER) Glucose, POC 128 70 - 199 mg/dL Blood 12/15/2024 12:4 6 PM LITHOGRAPHER HELPER 12/15/2024 12:46 PM LITHOGRAPHER HELPER us Aaron Gutierrez MD LAB POCT ORDERABLES - DEV ICE Final Result [facility] Department [place] [address] * POCT glucose (12/15/2024 10:26 AM LITHOGRAPHER HELPER) Glucose, POC 136 70 - 199 mg/dL Blood 12/15/2024 10:2 6 AM LITHOGRAPHER HELPER 12/15/2024 10:26 AM LITHOGRAPHER HELPER us Aaron Gutierrez MD LAB POCT ORDERABLES - DEV ICE Final Result [facility] Department [place] [address] * CT Chest WO Contrast F/U Lung Screen Protocol (11/12/2022 4:29 PM LITHOGRAPHER HELPER) Anatomical Region Laterality Modality Chest N/A Computed Tomogra phy 11/13/2022 8:38 AM LITHOGRAPHER HELPER Narrative 11/13/2022 8:47 AM LITHOGRAPHER HELPER EXAM DESCRIPTION: CT CHEST WO CONTRAST F/U LUNG SCREEN PROTOCOL REASON FOR STUDY: Screening CT of the chest in a current smoker with a 50 pack year smoking history. Additional history: COPD, heart disease, chest trauma, emphysema, asthma and diabetes. TECHNIQUE: Low dose CT scan of the chest was performed without intravenous contrast using helical scanning technique. The exam extends from the lung apices through the lung bases. Automatic exposure control was used as a dose optimization technique. NOTE: This study was performed for the specific purposes of lung cancer screening and is not an alternative to diagnostic chest CT. RADIATION DOSE: CT dose index volume (CTDIvol) = 1.71 mGy COMPARISON: 08/11/2022. FINDINGS: SMOKING RELATED LUNG DISEASE: There is a background of mild upper lobe predominant pulmonary emphysema. LUNG NODULES: On coronal image number 79, there is a linear 13 mm structure, associated with bullous change/focal emphysematous change within the right lower lobe. This has remained stable in appearance compared to the previous examination, and is favored to represent scarring. 5.5 mm nodule anteromedial right apex image 32 of series 3, stable. There is no new suspicious nodularity in either lung. CORONARY ARTERY CALCIFICATION: There are coronary artery calcifications. OTHER: No pneumonic consolidation. Minimal atelectatic change. No effusion or pneumothorax. Central airways are patent. Thyroid gland limited in evaluation on this study. There is no mediastinal or hilar lymphadenopathy. The esophagus is stable. The heart is stable in size without pericardial effusion. There is atherosclerotic calcification of the thoracic aorta, without aneurysm. There is no axillary lymphadenopathy. The chest wall is unremarkable. The visualized upper abdomen reveals cirrhotic configuration of the liver. There is diverticulosis. Evaluation limited on this low-dose study. There is thoracic spondylosis and degenerative disc disease. Sternotomy changes are noted IMPRESSION: 1. Background of mild upper lobe predominant pulmonary emphysema. 2. Linear somewhat nodular opacity within the right lower lobe is stable compared to the prior examination, favored to represent scarring. Given the interval stability of this category 4A finding on prior study, it is recommended that patient continual with annual screening LDCT in 12 months. 3. No new suspicious nodularity. 4. Cirrhotic configuration of the liver. Correlate with clinical scenario and laboratory values. MRI can be considered as warranted clinically. Lung-RADS v1.1 category 2S: Benign appearance or behavior. Finding other than a pulmonary nodule which is potentially clinically significant. Recommendation: Low dose Screening CT of chest in 12 months. THIS IS AN ELECTRONICALLY VERIFIED FINAL REPORT 11/13/2022 8:47 AM - Electronically signed by More Greenwood M.D. TW: TW Report ID: [id number] Reading Location: [place] [address] Procedure Note More Greenwood MD - 11/13/2022 EXAM DESCRIPTION: CT CHEST WO CONTRAST F/U LUNG SCREEN PROTOCOL REASON FOR STUDY: Screening CT of the chest in a current smoker with a50 pack year smoking history. Additional history: COPD, heart disease, chest trauma, emphysema, asthma and diabetes. TECHNIQUE: Low dose CT scan of the chest was performed without intravenous contrast using helical scanning technique. The exam extends from the lung apices through the lung bases. Automatic exposure control was used as adose optimization technique. NOTE: This study was performed for the specific purposes of lung cancer screening and is not an alternative to diagnostic chest CT. RADIATION DOSE: CT dose index volume (CTDIvol) = 1.71 mGy COMPARISON: 08/11/2022. FINDINGS: SMOKING RELATED LUNG DISEASE: There is a background of mild upper lobe predominant pulmonary emphysema. LUNG NODULES: On coronal image number 79, there is a linear 13 mmstructure, associated with bullous change/focal emphysematous change within the right lower lobe. This has remained stable in appearance compared to theprevious examination, and is favored to represent scarring. 5.5 mm nodule anteromedial right apex image 32 of series 3, stable. There is no new suspicious nodularity in either lung. CORONARY ARTERY CALCIFICATION: There are coronary artery calcifications. OTHER: No pneumonic consolidation. Minimal atelectatic change. Noeffusion or pneumothorax. Central airways are patent. Thyroid gland limited in evaluation on this study. There is no mediastinal or hilarlymphadenopathy. The esophagus is stable. The heart is stable in size without pericardial effusion. There is atherosclerotic calcification of the thoracic aorta, without aneurysm. There is no axillary lymphadenopathy. The chest miguel angel unremarkable. The visualized upper abdomen reveals cirrhoticconfiguration of the liver. There is diverticulosis. Evaluation limited on this low-dose study. There is thoracic spondylosis and degenerative disc disease. Sternotomy changes are noted IMPRESSION: 1. Background of mild upper lobe predominant pulmonary emphysema. 2. Linear somewhat nodular opacity within the right lower lobe is stable compared to the prior examination, favored to represent scarring. Giventhe interval stability of this category 4A finding on prior study, it is recommended that patient continual with annual screening LDCT in 12months. 3. No new suspicious nodularity. 4. Cirrhotic configuration of the liver. Correlate with clinicalscenario and laboratory values. MRI can be considered as warranted clinically. Lung-RADS v1.1 category 2S: Benign appearance or behavior. Finding otherthan a pulmonary nodule which is potentially clinically significant. Recommendation: Low dose Screening CT of chest in 12 months. THIS IS AN ELECTRONICALLY VERIFIED FINAL REPORT 11/13/2022 8:47 AM - Electronically signed by More Greenwood M.D. TW: CASSIE Report ID: [id number] Reading Location: [place] [address] Sami Campbell MD [facility] [place] PROCEDURES Final Result * (ABNORMAL) Albumin Creatinine Ratio, Urine (07/01/2022 2:08 PM CDT) Albumin Ur 32.7 mg/L [facility] ([facility]) Comment: Interpretive Data No reference range established. Current interpretive data was last revised 2019. Testing performed by: [facility], [address] [place] [address]., [id number] Creatinine Ur 57.0 mg/dL [facility] ([facility]) Comment: Interpretive Data No reference range established. Current interpretive data was last revised 2019. Testing performed by: [facility], [address] [place] [address]., [id number] Albumin Creatinine Ratio, Ur 57(H) 1 - 29 mg/g [facility] (JO) Comment:Testing performed by : [facility], [address] [place] [address]., [id number] Urine 07/01/2022 2:08 PM CDT 07/02/2022 9:48 AM CDT Xiao Swanson MD LAB URINE ORDERABLES Final Res ult [facility] (JO) [facility] Department [place] [address] * Diabetic Eye Exam (01/22/2022) Historical Provider HEALTH MAINTENANCE Final Result from Last 3 Months or Most Recently Relevant to Health Maintenance Insurance [employer] [place] [address] MEDICARE ADVANTAGE MEDICARE ADVANTAGE Advance Directives For more information, please contact: [phone] * Full Code (Latest Code Status on File) Date Activated Date Inactivated Comments 02/20/2025 1:29 PM 03/02/2025 8:05 PM * Full Code Date Activated Date Inactivated Comments 09/08/2019 2:14 PM 09/08/2019 9:30 PM Care Teams Manager Trading Relationship Specialty Start Date End Date Giuliano Isbell MD [address] [place] [address] PCP - General Family Medicine 07/13/23 Clinical Summary Created on: March 12, 2025 Jud Mace Jr. : 1955 Sex: Male Author Organization [id number] Address [address] [place] [address] Care Team Providers Care Manager Trading Name Role Phone Giuliano Isbell MD Primary Care Provider [phone] Allergies No known active allergies Medications nitroglycerin (NITROSTAT) 0.[address] 1 tablet (0.4 mg total) under the tongue every 5 (five) minutes as needed for chest pain Active carvediloL (COREG) 6.25 mg tablet Take 1 tablet (6.25 mg total) by mouth 2 (two) times a day with meals Active Entresto 24-26 mg tablet Take 1 tablet by mouth 2 (two) times a day 01/28/20 22 Active atorvastatin (LIPITOR) 10 mg tablet Take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 Shan Mcginnis MD at [facility] Other - see comments [employer] 04/22/2020 [id number] / / [id number] Cardiac Stent X4 Implanted:Qty : 4 N/A: Heart Description: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 Procedures Procedure Name Priority Date/Time Associated Diagnosis Comments POCT GLUCOSE DEVICE Routine 03/02/2025 11:24 AM CDT POTASSIUM, WHOLE BLOOD Routine 11:24 AM CDT POCT GLUCOSE DEVICE Routine 03/02/2025 7:40 AM CDT POTASSIUM, WHOLE BLOOD STAT 10:11 PM CDT EGFR Routine 03/01/2025 8:13 PM CDT DIFFERENTIAL AUTO Routine 03/01/2025 8:13 PM CDT CBC WITH AUTO DIFFERENTIAL Routine 03/01 8:13 PM CDT COMPREHENSIVE METABOLIC PANEL Routine 8:13 PM CDT POCT GLUCOSE DEVICE Routine 03/01/2025 7:41 PM CDT POCT GLUCOSE DEVICE Routine 03/01/2025 4:13 PM CDT POCT GLUCOSE DEVICE Routine 03/01/2025 11:30 AM CDT POCT GLUCOSE DEVICE Routine 03/01/2025 7:49 AM CDT CBC WITHOUT DIFFERENTIAL Timed 025 6:30 AM CDT POCT GLUCOSE DEVICE Routine 02/28/2025 8:40 PM CDT POCT GLUCOSE DEVICE Routine 02/28/2025 5:17 PM CDT EGFR Timed 02/28/2025 4:12 PM CDT CBC WITHOUT DIFFERENTIAL Timed 025 4:12 PM CDT COMPREHENSIVE METABOLIC PANEL Timed 4:12 PM CDT POCT GLUCOSE DEVICE Routine 02/28/2025 11:31 AM CDT EGD 02/28/2025 9:24 AM CDT ESOPHAGOGASTRODUODENOSCOPY 02/28 9:22 AM CDT Melena POCT GLUCOSE DEVICE Routine 02/28/2025 7:41 AM CDT EGFR Routine 02/27/2025 9:39 PM CDT PROTIME-INR Timed 02/27/2025 9:39 PM CDT COMPREHENSIVE METABOLIC PANEL Routine 9:39 PM CDT CBC WITHOUT DIFFERENTIAL Routine 025 9:39 PM CDT MAGNESIUM Routine 02/27/2025 9:39 PM CDT POCT GLUCOSE DEVICE Routine 02/27/2025 8:55 PM CDT POCT GLUCOSE DEVICE Routine 02/27/2025 4:24 PM CDT HEMOGLOBIN AND HEMATOCRIT Timed 2024 3:01 PM CDT XR CHEST 1 VIEW IP Routine 02/27/2025 1:19 PM CDT POCT GLUCOSE DEVICE Routine 02/27/2025 12:18 PM CDT TYPE AND SCREEN Timed 02/27/2025 10:38 AM CDT POCT GLUCOSE DEVICE Routine 02/27/2025 7:55 AM CDT EGFR Routine 02/27/2025 12:26 AM CDT CBC WITHOUT DIFFERENTIAL Routine 025 12:26 AM CDT MAGNESIUM Routine 02/27/2025 12:26 AM CDT COMPREHENSIVE METABOLIC PANEL Routine 12:26 AM CDT POCT GLUCOSE DEVICE Routine 02/26/2025 8:32 PM CDT POCT GLUCOSE DEVICE Routine 02/26/2025 5:01 PM CDT POCT GLUCOSE DEVICE Routine 02/26/2025 11:27 AM CDT CHEST PHYSIO THERAPY Routine 02/26/2025 9:00 AM CDT POCT GLUCOSE DEVICE Routine 02/26/2025 7:44 AM CDT EGFR STAT 02/26/2025 6:53 AM CDT BASIC METABOLIC PANEL STAT 02/26/2025 6:53 AM CDT MAGNESIUM STAT 02/26/2025 6:53 AM CDT PEP THERAPY Routine 02/25/2025 9:00 PM CDT CHEST PHYSIO THERAPY Routine 02/25/2025 8:00 PM CDT POCT GLUCOSE DEVICE Routine 02/25/2025 7:58 PM CDT PEP THERAPY Routine 02/25/2025 6:21 PM CDT PEP THERAPY Routine 02/25/2025 6:21 PM CDT PEP THERAPY Routine 02/25/2025 6:21 PM CDT POCT GLUCOSE DEVICE Routine 02/25/2025 4:26 PM CDT INFECTION PREVENTION ROBERTO AURIS PCR, SURVEILLANCE Routine 02/25/2025 12:40 PM CDT POCT GLUCOSE DEVICE Routine 02/25/2025 11:16 AM CDT POCT GLUCOSE DEVICE Routine 02/25/2025 9:09 AM CDT CHEST PHYSIO THERAPY Routine 02/25/2025 9:00 AM CDT EGFR Routine 02/24/2025 8:06 PM CDT MAGNESIUM Routine 02/24/2025 8:06 PM CDT COMPREHENSIVE METABOLIC PANEL Routine 8:06 PM CDT CBC WITHOUT DIFFERENTIAL Timed 8:06 PM CDT POCT GLUCOSE DEVICE Routine 02/24/2025 8:05 PM CDT CHEST PHYSIO THERAPY Routine 02/24/2025 8:00 PM CDT POCT GLUCOSE DEVICE Routine 02/24/2025 5:56 PM CDT POCT GLUCOSE DEVICE Routine 02/24/2025 12:31 PM CDT XR CHEST 1 VIEW ED Urgent/IP Urgent 02/24/2025 9:46 AM CDT CHEST PHYSIO THERAPY Routine 02/24/2025 9:01 AM CDT CBC WITHOUT DIFFERENTIAL Timed 025 8:19 AM CDT POCT GLUCOSE DEVICE Routine 02/24/2025 7:37 AM CDT EGFR Routine 02/23/2025 9:17 PM CDT CALCIUM,IONIZED, WHOLE BLOOD Timed 01/2025 9:17 PM CDT MAGNESIUM Routine 02/23/2025 9:17 PM CDT COMPREHENSIVE METABOLIC PANEL Routine 9:17 PM CDT CBC WITHOUT DIFFERENTIAL Timed 025 9:17 PM CDT POCT GLUCOSE DEVICE Routine 02/23/2025 8:33 PM CDT CHEST PHYSIO THERAPY Routine 02/23/2025 8:00 PM CDT POCT GLUCOSE DEVICE Routine 02/23/2025 4:25 PM CDT POCT GLUCOSE DEVICE Routine 02/23/2025 12:07 PM CDT CHEST PHYSIO THERAPY Routine 02/23/2025 9:01 AM CDT FOLATE Timed 02/23/2025 8:09 AM CDT VITAMIN B12 Timed 02/23/2025 8:09 AM CDT FERRITIN Timed 02/23/2025 8:09 AM CDT IRON PROFILE W/ IBC Timed 02/23/2025 8:09 AM CDT CBC WITHOUT DIFFERENTIAL Timed 025 8:09 AM CDT POCT GLUCOSE DEVICE Routine 02/23/2025 8:08 AM CDT MAGNESIUM Routine 02/23/2025 6:17 AM CDT EGFR Routine 02/23/2025 6:17 AM CDT BLOOD GAS, VENOUS Timed 02/23/2025 6:17 AM CDT COMPREHENSIVE METABOLIC PANEL Routine 6:17 AM CDT POCT GLUCOSE DEVICE Routine 02/23/2025 3:43 AM CDT POCT GLUCOSE DEVICE Routine 02/23/2025 12:02 AM CDT BLOOD GAS, VENOUS Timed 02/22/2025 10:18 PM CDT CBC WITHOUT DIFFERENTIAL Timed 025 10:18 PM CDT POCT GLUCOSE DEVICE Routine 02/22/2025 9:47 PM CDT CHEST PHYSIO THERAPY Routine 02/22/2025 8:00 PM CDT POCT GLUCOSE DEVICE Routine 02/22/2025 4:32 PM CDT CBC WITHOUT DIFFERENTIAL Timed 025 3:32 PM CDT XR CHEST 1 VIEW IP Routine 02/22/2025 1:10 PM CDT PROTIME-INR Timed 02/22/2025 12:02 PM CDT POCT GLUCOSE DEVICE Routine 02/22/2025 12:01 PM CDT CHEST PHYSIO THERAPY Routine 02/22/2025 9:01 AM CDT PNEUMONIA PCR Routine 02/22/2025 8:52 AM CDT PNEUMONIA PCR WITH AEROBIC CULTURE AND GRAM STAIN Routine 02/22/2025 8:52 AM CDT C. DIFFICILE TESTING STAT 02/22/2025 8:52 AM CDT NOROVIRUS PCR STAT 02/22/2025 8:52 AM CDT INFECTION PREVENTION VRE CULTURE Routine 02/22/2025 8:47 AM CDT POCT GLUCOSE DEVICE Routine 02/22/2025 8:15 AM CDT EGFR Timed 02/22/2025 6:21 AM CDT BLOOD GAS, VENOUS Timed 02/22/2025 6:21 AM CDT LACTATE Timed 02/22/2025 6:21 AM CDT CBC WITHOUT DIFFERENTIAL Timed 025 6:21 AM CDT COMPREHENSIVE METABOLIC PANEL Timed 6:21 AM CDT RPR Routine 02/22/2025 6:21 AM CDT HEPATITIS C ANTIBODY Routine 02/22/2025 6:21 AM CDT HEPATITIS B SURFACE ANTIGEN Routine 12/2024 6:21 AM CDT HIV 1/2 ANTIBODY PLUS P24 ANTIGEN Routine 02/22/2025 6:21 AM CDT LACTATE Timed 02/22/2025 12:55 AM CDT EGFR Timed 02/21/2025 8:07 PM CDT OXYHEMOGLOBIN, CENTRAL VENOUS Timed 8:07 PM CDT LACTATE Timed 02/21/2025 8:07 PM CDT CBC WITHOUT DIFFERENTIAL Timed 025 8:07 PM CDT COMPREHENSIVE METABOLIC PANEL Timed 8:07 PM CDT POCT GLUCOSE DEVICE Routine 02/21/2025 8:06 PM CDT CHEST PHYSIO THERAPY Routine 02/21/2025 8:00 PM CDT INFECTION PREVENTION ROBERTO AURIS PCR, SURVEILLANCE Routine 02/21/2025 6:52 PM CDT POCT GLUCOSE DEVICE Routine 02/21/2025 3:34 PM CDT CHEST PHYSIO THERAPY Routine 02/21/2025 1:30 PM CDT CHEST PHYSIO THERAPY Routine 02/21/2025 1:30 PM CDT OXYHEMOGLOBIN, CENTRAL VENOUS Timed 1:09 PM CDT BLOOD GAS, VENOUS Timed 02/21/2025 1:09 PM CDT LACTATE Timed 02/21/2025 1:[address] CHEST PE ABDOMEN PELVIS W CONTRAST ED Urgent/IP Urgent 02/21/2025 12:37 PM CDT POCT GLUCOSE DEVICE Routine 02/21/2025 11:38 AM CDT TRANSTHORACIC ECHO (TTE) COMPLETE W DOPPLER/CF W CONTRAST ED 02/21/2025 10:20 AM CDT POCT GLUCOSE DEVICE Routine 02/21/2025 7:28 AM CDT POC BLOOD GAS AND CHEMISTRIES, ARTERIAL Routine 02/21/2025 5:06 AM CDT EGFR Timed 02/21/2025 5:06 AM CDT MAGNESIUM Timed 02/21/2025 5:06 AM CDT PHOSPHORUS Timed 02/21/2025 5:06 AM CDT CREATINE KINASE (CK), TOTAL Routine 11/2024 5:06 AM CDT CBC WITHOUT DIFFERENTIAL Timed 025 5:06 AM CDT COMPREHENSIVE METABOLIC PANEL Timed 5:06 AM CDT CREATININE, URINE, RANDOM Routine 2024 5:06 AM CDT UREA NITROGEN, URINE, RANDOM STAT 11/2024 5:06 AM CDT SODIUM, URINE, RANDOM Routine 02/21/2025 5:06 AM CDT LACTATE Routine 02/21/2025 5:06 AM CDT XR CHEST 1 VIEW IP Routine 02/21/2025 4:26 AM CDT POC BLOOD GAS AND CHEMISTRIES, VENOUS Routine 02/21/2025 3:04 AM CDT WI INSJ NON-TUNNELED CENTRAL VENOUS CATH AGE 5 YR/> Routine 02/21/2025 1:30 AM CDT Sepsis with acute organ dysfunction and septic shock, due to unspecified organism, unspecified organ dysfunction type (HCC) POC BLOOD GAS AND CHEMISTRIES, ARTERIAL Routine 02/21/2025 1:08 AM CDT WI ARTL CATHJ/CANNULJ MNTR/TRANSFUSION SPX PRQ Routine 02/21/2025 1:00 AM CDT Sepsis with acute organ dysfunction and septic shock, due to unspecified organism, unspecified organ dysfunction type (HCC) B CHECK SAMPLE STAT 02/21/2025 12:57 AM CDT LACTATE Timed 02/21/2025 12:12 AM CDT ECG 12-LEAD STAT 02/21/2025 12:08 AM CDT TYPE AND SCREEN Routine 02/21/2025 12:06 AM CDT INFECTION PREVENTION MRSA ONLY (STAPHYLOCOCCUS AUREUS) CULTURE Routine 02/21/2025 12:06 AM CDT WI CRITICAL CARE ILL/INJURED PATIENT INIT 30-74 MIN Routine 02/20/2025 10:51 PM CDT MANUAL DIFFERENTIAL STAT 02/20/2025 9:27 PM CDT EGFR STAT 02/20/2025 9:27 PM CDT PRO B-TYPE NATRIURETIC PEPTIDE STAT 02/20/2025 9:27 PM CDT CBC WITH AUTO DIFFERENTIAL STAT 02/20 9:27 PM CDT BASIC METABOLIC PANEL STAT 02/20/2025 9:27 PM CDT CRITICAL RESULT CALLBACK CHEMISTRY Timed 02/20/2025 8:50 PM CDT LACTATE Timed 02/20/2025 8:50 PM CDT POCUS THORACIC (LUNG UNLTRASOUND) 02/20/2025 8:23 PM CDT POCUS CARDIAC 02/20/2025 8:21 PM CDT POCT LACTATE - DEVICE Routine 02/20/2025 7:45 PM CDT ECG 12-LEAD Routine 02/20/2025 7:35 PM CDT POCT GLUCOSE DEVICE Routine 02/20/2025 7:13 PM CDT POCT GLUCOSE DEVICE Routine 02/20/2025 3:45 PM CDT EGFR STAT 02/20/2025 3:42 PM CDT CRITICAL RESULT CALLBACK CHEMISTRY STAT 02/20/2025 3:42 PM CDT BASIC METABOLIC PANEL STAT 02/20/2025 3:42 PM CDT LACTATE STAT 02/20/2025 3:42 PM CDT POCT GLUCOSE DEVICE Routine 02/20/2025 1:52 PM CDT POCT GLUCOSE DEVICE Routine 02/20/2025 11:59 AM CDT POCT GLUCOSE DEVICE Routine 02/20/2025 11:09 AM CDT XR ABDOMEN AP 1 VIEW ED 02/20/2025 11:09 AM CDT POCT GLUCOSE DEVICE Routine 02/20/2025 10:28 AM CDT POCT GLUCOSE DEVICE Routine 02/20/2025 9:13 AM CDT POCT GLUCOSE DEVICE Routine 02/20/2025 9:10 AM CDT LIPID PANEL STAT 02/20/2025 8:49 AM CDT MAGNESIUM STAT 02/20/2025 8:49 AM CDT UREA NITROGEN, URINE, RANDOM STAT 8:49 AM CDT CRITICAL RESULT CALLBACK CHEMISTRY STAT 02/20/2025 8:49 AM CDT EGFR STAT 02/20/2025 8:49 AM CDT CRITICAL RESULT CALLBACK CHEMISTRY STAT 02/20/2025 8:49 AM CDT BILIRUBIN, DIRECT STAT 02/20/2025 8:49 AM CDT CRITICAL RESULT CALLBACK CHEMISTRY Timed 02/20/2025 8:49 AM CDT PROTEIN / CREATININE RATIO, URINE, RANDOM STAT 02/20/2025 8:49 AM CDT OSMOLALITY, BLOOD STAT 02/20/2025 8:49 AM CDT SODIUM, URINE, RANDOM STAT 02/20/2025 8:49 AM CDT CREATININE, URINE, RANDOM STAT 2024 8:49 AM CDT OSMOLALITY, URINE STAT 02/20/2025 8:49 AM CDT APTT STAT 02/20/2025 8:49 AM CDT PROTIME-INR STAT 02/20/2025 8:49 AM CDT CBC WITHOUT DIFFERENTIAL STAT 025 8:49 AM CDT LACTATE STAT 02/20/2025 8:49 AM CDT COMPREHENSIVE METABOLIC PANEL STAT 8:49 AM CDT SEPSIS LACTATE WITH REFLEX Timed 02/20 8:49 AM CDT HEPATITIS PANEL, ACUTE STAT 8:49 AM CDT URINALYSIS, MICROSCOPIC ONLY STAT 7:59 AM CDT URINALYSIS AND REFLEX TO MICROSCOPIC STAT 02/20/2025 7:59 AM CDT LEGIONELLA ANTIGEN, URINE Routine 2024 7:59 AM CDT SEPSIS LACTATE WITH REFLEX Timed 02/20 5:25 AM CDT POCT GLUCOSE DEVICE Routine 02/20/2025 2:17 AM CDT CRITICAL RESULT CALLBACK CHEMISTRY STAT 02/20/2025 1:53 AM CDT SEPSIS LACTATE WITH REFLEX STAT 02/20 1:53 AM CDT POCT GLUCOSE DEVICE Routine 02/20/2025 12:07 AM CDT POCT GLUCOSE DEVICE Routine 02/19/2025 11:41 PM CDT CRITICAL RESULT CALLBACK CARDIO CHEM Timed 02/19/2025 9:58 PM CDT CRITICAL RESULT CALLBACK CHEMISTRY Routine 02/19/2025 9:58 PM CDT BLOOD GAS, VENOUS STAT 02/19/2025 9:58 PM CDT LACTATE Routine 02/19/2025 9:58 PM CDT TROPONIN I HIGH-SENSITIVITY 6-HOUR Timed 02/19/2025 9:58 PM CDT TROPONIN I HIGH-SENSITIVITY 4-HOUR Timed 02/19/2025 9:58 PM CDT TROPONIN I HIGH-SENSITIVITY 2-HOUR Timed 02/19/2025 9:58 PM CDT BLOOD CULTURE STAT 02/19/2025 9:58 PM CDT BLOOD CULTURE STAT 02/19/2025 9:58 PM CDT RESPIRATORY PATHOGEN PANEL STAT 02/19 9:58 PM CDT XR CHEST PA LATERAL 2 VIEWS ED Urgent/IP Urgent 02/19/2025 9:40 PM CDT WI CRITICAL CARE ILL/INJURED PATIENT INIT 30-74 MIN Routine 02/19/2025 9:31 PM CDT HEMOGLOBIN A1C STAT 02/19/2025 8:12 PM CDT PRO B-TYPE NATRIURETIC PEPTIDE STAT 02/19/2025 8:12 PM CDT EGFR STAT 02/19/2025 8:12 PM CDT DIFFERENTIAL AUTO STAT 02/19/2025 8:12 PM CDT TROPONIN I HIGH-SENSITIVITY SERIES (BASELINE, 2HR, 4HR, 6HR) STAT 02/19/2025 8:12 PM CDT COMPREHENSIVE METABOLIC PANEL STAT 8:12 PM CDT CBC WITH AUTO DIFFERENTIAL STAT 02/19 8:12 PM CDT LIPASE STAT 02/19/2025 8:12 PM CDT ECG 12-LEAD STAT 02/19/2025 7:57 PM CDT POCT GLUCOSE DEVICE Routine 12/15/2024 12:46 PM LITHOGRAPHER HELPER RELEASE CARPAL TUNNEL 12/15/2024 11:58 AM LITHOGRAPHER HELPER Left carpal tunnel syndrome Case Notes 12/14 - Per Dr Gutierrez, change cut to close to 5 minutes. [id number]/25@[id number]: Sent case msg to [facility] about pt not having transportion to surgery yesterday/case is now marked, No not ready to schedule. SR 04/19@1149 Case message to [facility] - case to be rescheduled as patient didn't have transportation [id number]/@[id number] Per Dania Rehman per case message, this case fourth [id number]/15@[id number] Per [facility], I am confirming the surgery date is 04/14/24.thank you. [email or web address]/15@1402 Confirm Surgery Date - Call to [facility] to confirm the surgery date, left voicemail CF11/09 @ 1613 Case message to Sky[facility], case marked No, not ready to schedule CF11/12 @ 1753 Per [facility]e via case message, line up for rooms G & H CF POCT GLUCOSE DEVICE Routine 12/15/2024 10:[address] CHEST WO CONTRAST F/U RUBI G SCREEN PROTOCOL Schedule Routine, Read Routine (OP Routine) 11/12/2022 4:29 PM LITHOGRAPHER HELPER Lung nodule ALBUMIN CREATININE RATIO, URINE Routine 07/01/2022 2:08 PM CDT Type 2 diabetes mellitus with hyperglycemia, with long-term current use of insulin (HCC) DIABETIC EYE EXAM Routine 01/22/2022 from Last 3 Months or Most Recently Relevant to Health Maintenance Results * (ABNORMAL) Potassium, whole blood (03/02/2025 11:24 AM CDT) Potassium, bld 5.0(H) 3.3 - 4.9 mmol/L Blood 03/02/2025 11:2 4 AM CDT 03/02/2025 1:37 PM CDT us Eagle Jerry MD LAB BLOOD ORDERABLES Final Res ult [facility] Department [place] [address] * (ABNORMAL) POCT glucose (03/02/2025 11:24 AM CDT) Glucose, POC 258(H) 70 - 199 mg/dL Blood 03/02/2025 11:2 4 AM CDT 03/02/2025 11:24 AM CDT us Eagle Jerry MD LAB POCT ORDERABLES - DEVICE F inal Result Performing Organization Address [facility] Co de Phone Number HAM [facility] Department [place] [address] * POCT glucose (03/02/2025 7:40 AM CDT) Pathologist [facility] Glucose, POC 108 70 - 199 mg/dL Blood 03/02/2025 7:40 AM CDT 03/02/2025 7:40 AM CDT Eagle Jerry MD LAB POCT ORDERABLES - DEVICE F inal Result Performing Organization Address [facility] Co de Phone Number HAM [facility] Department [place] [address] * (ABNORMAL) Potassium, whole blood (03/01/2025 10:11 PM CDT) [facility] Potassium, bld 5.3(H) 3.3 - 4.9 mmol/L Blood 03/01/2025 10:1 1 PM CDT 03/01/2025 10:18 PM CDT Eagle Jerry MD LAB BLOOD ORDERABLES Final Res ult Performing Organization Address [facility] Co de Phone Number [facility] Department [place] [address] * eGFR (03/01/2025 8:13 PM CDT) Pathologist [facility] eGFR 77 >=60 mL/min/1. 73 m2 Comment: Interpretive Data Reference Interval Normal >/= 90 mL/min/1.73m2 Mildly decreased* 60 - 89 mL/min/1.73m2 Mildly to moderately decreased 45 - 59 mL/min/1.73m2 Moderately to severely decreased 30 - 44 mL/min/1.73m2 Severely decreased 15 - 29 mL/min/1.73m2 Kidney Failure < 15 mL/min/1.73m2 *Relative to young adult level Estimated glomerular filtration rate is determined by the 2020 CKD-EPI equation recommended by the National Kidney Foundation (A Unifying Approach to GFR Estimation: Recommendations of the NKF-ASK Task Force on Reassessing the Inclusion of Race in Diagnosing Kidney Disease, JASN 202). The CKD-EPI equation should not be used for patients with unstable renal function and has not been validated in children and those over 70. Current interpretive data was last reviewed 2021. Blood 03/01/2025 8:13 PM CDT 03/01/2025 8:30 PM CDT us Eagle Jerry MD LAB BLOOD ORDERABLES Final Res ult [facility] Department [place] [address] * Differential, auto (03/01/2025 8:13 PM CDT) Neutrophil abs 4.58 1.50 - 6.50 K/cumm Imm gran abs 0.03 0.00 - 0.10 K/cumm [facility] Lymphocyte abs 1.69 0.80 - 3.30 K/cumm [facility] Monocyte abs 0.61 0.20 - 0.80 K/cumm [facility] Eosinophil abs 0.15 0.00 - 0.50 K/cumm [facility] Basophil abs 0.00 0.00 - 0.10 K/cumm [facility] Neutrophil pct 65.0 % [facility] Comment: Interpretive Data Percent cell count reference ranges are not reported, since discordance with absolute values may lead to misinterpretation of CBC data. Current Interpretive Data was last revised on 2018. Imm gran pct 0.4 % [facility] Comment: Interpretive Data Percent cell count reference ranges are not reported, since discordance with absolute values may lead to misinterpretation of CBC data. Current Interpretive Data was last revised on 2018. Lymphocyte pct 23.9 % [facility] Comment: Interpretive Data Percent cell count reference ranges are not reported, since discordance with absolute values may lead to misinterpretation of CBC data. Current Interpretive Data was last revised on 2018. Monocyte pct 8.6 % [facility] Comment: Interpretive Data Percent cell count reference ranges are not reported, since discordance with absolute values may lead to misinterpretation of CBC data. Current Interpretive Data was last revised on 2018. Eosinophil pct 2.1 % [facility] Comment: Interpretive Data Percent cell count reference ranges are not reported, since discordance with absolute values may lead to misinterpretation of CBC data. Current Interpretive Data was last revised on 2018. Basophil pct 0.0 % [facility] Comment: Interpretive Data Percent cell count reference ranges are not reported, since discordance with absolute values may lead to misinterpretation of CBC data. Current Interpretive Data was last revised on 2018. Blood 03/01/2025 8:13 PM CDT 03/01/2025 8:30 PM CDT us Eagle Jerry MD LAB BLOOD ORDERABLES Final Res ult [facility] Department [place] [address] * (ABNORMAL) CBC with auto differential (03/01/2025 8:13 PM CDT) WBC 7.06 3.80 - 9.90 K/cumm Hgb 7.4(L) 13.0 - 17.5 g/dL [facility] Hct 22.5(L) 38.9 - 50.3 % [facility] Plt 174 150 - 400 K/cumm [facility] MPV 11.5 9.1 - 12.3 fL [facility] RBC 2.41(L) 4.30 - 5.80 M/cumm [facility] MCV 93.4 81.3 - 96.4 fL [facility] MCH 30.7 27.1 - 33.3 pg [facility] MCHC 32.9 32.3 - 35.7 g/dL [facility] RDW CV 16.8(H) 11.1 - 14.9 % [facility] RDW SD 56.1(H) 35.7 - 48.1 fL [facility] NRBC abs 0.03(H) 0.00 - 0.01 K/cumm [facility] Blood 03/01/2025 8:13 PM CDT 03/01/2025 8:30 PM CDT us Eagle Jerry MD LAB BLOOD ORDERABLES Final Res ult [facility] Department [place] [address] * (ABNORMAL) Comprehensive metabolic panel (03/01/2025 8:13 PM CDT) Sodium 135 135 - 145 mmol/L Potassium, pl 5.4(H) 3.3 - 4.9 mmol/L [facility] Chloride 103 97 - 110 mmol/L [facility] CO2 28 22 - 32 mmol/L [facility] Anion gap 4 2 - 15 mmol/L [facility] BUN 40(H) 6 - 25 mg/dL [facility] Creatinine 1.04 0.80 - 1.30 mg/dL [facility] Glucose 124 70 - 199 mg/dL [facility] Comment: Interpretive Data Fasting glucose >/= 126 mg/dl is diagnostic for diabetes. Fasting is defined as no caloric intake for at least 8 hours. Fasting glucose between 100 mg/dl to 125 mg/dl is diagnostic of prediabetes. In a patient with classic symptoms of hyperglycemia or hyperglycemic crisis, a random glucose >/= 200 mg/dl is diagnostic for diabetes. In the absence of unequivocal hyperglycemia, results should be confirmed by repeat testing. The classification and Diagnosis of Diabetes Diabetes Care 2021; 46: S19-S40. Current interpretive data was last revised 2022. Calcium 8.0(L) 8.5 - 10.3 mg/dL [facility] Bilirubin, total 0.6 0.1 - 1.2 mg/dL [facility] Protein, pl 6.5 6.5 - 8.5 g/dL [facility] Albumin 2.7(L) 3.5 - 5.0 g/dL [facility] Alk phos 107 40 - 130 Units/L [facility] ALT 59(H) 7 - 55 Units/L [facility] AST 52(H) 10 - 50 Units/L [facility] Blood 03/01/2025 8:13 PM CDT 03/01/2025 8:30 PM CDT Eagle Jerry MD LAB BLOOD ORDERABLES Final Res ult Performing Organization Address [facility] de Phone Number [facility] [place] [address] * POCT glucose (03/01/2025 7:41 PM CDT) Glucose, POC 103 70 - 199 mg/dL Blood 03/01/2025 7:41 PM CDT 03/01/2025 7:41 PM CDT Eagle Jerry MD LAB POCT ORDERABLES - DEVICE F inal Result Performing Organization Address [facility] de Phone Number [facility] [place] [address] * POCT glucose (03/01/2025 4:13 PM CDT) Glucose, POC 140 70 - 199 mg/dL Blood 03/01/2025 4:13 PM CDT 03/01/2025 4:13 PM CDT Eagle Jerry MD LAB POCT ORDERABLES - DEVICE F inal Result Performing Organization Address [facility] de Phone Number [facility] [place] [address] * (ABNORMAL) POCT glucose (03/01/2025 11:30 AM CDT) Glucose, POC 243(H) 70 - 199 mg/dL Blood 03/01/2025 11:3 0 AM CDT 03/01/2025 11:30 AM CDT Eagle Jerry MD LAB POCT ORDERABLES - DEVICE F inal Result Performing Organization Address City/[facility]/ZIP Co de Phone Number [facility] [place] [address] * POCT glucose (03/01/2025 7:49 AM CDT) [facility] Glucose, POC 105 70 - 199 mg/dL Blood 03/01/2025 7:49 AM CDT 03/01/2025 7:49 AM CDT Eagle Jerry MD LAB POCT ORDERABLES - DEVICE F inal Result Performing Organization Address [facility] de Phone Number [facility] [place] [address] * (ABNORMAL) CBC without differential (03/01/2025 6:30 AM CDT) [facility] WBC 6.61 3.80 - 9.90 K/cumm Hgb 8.1(L) 13.0 - 17.5 g/dL [facility] Hct 24.5(L) 38.9 - 50.3 % [facility] Plt 174 150 - 400 K/cumm [facility] MPV 11.4 9.1 - 12.3 fL [facility] RBC 2.62(L) 4.30 - 5.80 M/cumm [facility] MCV 93.5 81.3 - 96.4 fL [facility] MCH 30.9 27.1 - 33.3 pg [facility] MCHC 33.1 32.3 - 35.7 g/dL [facility] RDW CV 16.7(H) 11.1 - 14.9 % [facility] RDW SD 55.9(H) 35.7 - 48.1 fL [facility] NRBC abs 0.00 0.00 - 0.01 K/cumm [facility] Blood 03/01/2025 6:30 AM CDT 03/01/2025 6:44 AM CDT Eagle Jerry MD LAB BLOOD ORDERABLES Final Res ult Performing Organization Address [facility] Co de Phone Number [facility] [place] [address] * (ABNORMAL) POCT glucose (02/28/2025 8:40 PM CDT) Glucose, POC 228(H) 70 - 199 mg/dL Blood 02/28/2025 8:40 PM CDT 02/28/2025 8:40 PM CDT Eagle Jerry MD LAB POCT ORDERABLES - DEVICE F inal Result Performing Organization Address [facility] de Phone Number [facility] Department [place] [address] * POCT glucose (02/28/2025 5:17 PM CDT) Glucose, POC 166 70 - 199 mg/dL Blood 02/28/2025 5:17 PM CDT 02/28/2025 5:17 PM CDT Eagle Jerry MD LAB POCT ORDERABLES - DEVICE F inal Result Performing Organization Address [facility] Co de Phone Number [facility] Department [place] [address] * eGFR (02/28/2025 4:12 PM CDT) eGFR 87 >=60 mL/min/1. 73 m2 Comment: Interpretive Data Reference Interval Normal >/= 90 mL/min/1.73m2 Mildly decreased* 60 - 89 mL/min/1.73m2 Mildly to moderately decreased 45 - 59 mL/min/1.73m2 Moderately to severely decreased 30 - 44 mL/min/1.73m2 Severely decreased 15 - 29 mL/min/1.73m2 Kidney Failure < 15 mL/min/1.73m2 *Relative to young adult level Estimated glomerular filtration rate is determined by the 2020 CKD-EPI equation recommended by the National Kidney Foundation (A Unifying Approach to GFR Estimation: Recommendations of the NKF-ASK Task Force on Reassessing the Inclusion of Race in Diagnosing Kidney Disease, JASN 2020). The CKD-EPI equation should not be used for patients with unstable renal function and has not been validated in children and those over 70. Current interpretive data was last reviewed 2021. Blood 02/28/2025 4:12 PM CDT 02/28/2025 4:34 PM CDT us Eagle Jerry MD LAB BLOOD ORDERABLES Final Res ult [facility] Department [place] [address] * (ABNORMAL) CBC without differential (02/28/2025 4:12 PM CDT) WBC 8.22 3.80 - 9.90 K/cumm Hgb 7.7(L) 13.0 - 17.5 g/dL [facility] Hct 23.3(L) 38.9 - 50.3 % [facility] Plt 167 150 - 400 K/cumm [facility] MPV 11.6 9.1 - 12.3 fL [facility] RBC 2.45(L) 4.30 - 5.80 M/cumm [facility] MCV 95.1 81.3 - 96.4 fL [facility] MCH 31.4 27.1 - 33.3 pg [facility] MCHC 33.0 32.3 - 35.7 g/dL [facility] RDW CV 16.8(H) 11.1 - 14.9 % [facility] RDW SD 57.2(H) 35.7 - 48.1 fL [facility] NRBC abs 0.03(H) 0.00 - 0.01 K/cumm [facility] Blood 02/28/2025 4:12 PM CDT 02/28/2025 4:32 PM CDT us Eagle Jerry MD LAB BLOOD ORDERABLES Final Res ult [facility] Department [place] [address] * (ABNORMAL) Comprehensive metabolic panel (02/28/2025 4:12 PM CDT) Sodium 132(L) 135 - 145 mmol/L Potassium, pl 5.1(H) 3.3 - 4.9 mmol/L [facility] Chloride 99 97 - 110 mmol/L [facility] CO2 26 22 - 32 mmol/L [facility] Anion gap 7 2 - 15 mmol/L [facility] BUN 44(H) 6 - 25 mg/dL [facility] Creatinine 0.94 0.80 - 1.30 mg/dL [facility] Glucose 168 70 - 199 mg/dL [facility] Comment: Interpretive Data Fasting glucose >/= 126 mg/dl is diagnostic for diabetes. Fasting is defined as no caloric intake for at least 8 hours. Fasting glucose between 100 mg/dl to 125 mg/dl is diagnostic of prediabetes. In a patient with classic symptoms of hyperglycemia or hyperglycemic crisis, a random glucose >/= 200 mg/dl is diagnostic for diabetes. In the absence of unequivocal hyperglycemia, results should be confirmed by repeat testing. The classification and Diagnosis of Diabetes Diabetes Care 202; 46: S19-S40. Current interpretive data was last revised 2022. Calcium 7.6(L) 8.5 - 10.3 mg/dL [facility] Bilirubin, total 0.6 0.1 - 1.2 mg/dL [facility] Protein, pl 6.6 6.5 - 8.5 g/dL [facility] Albumin 2.7(L) 3.5 - 5.0 g/dL [facility] Alk phos 99 40 - 130 Units/L [facility] ALT 60(H) 7 - 55 Units/L [facility] AST 60(H) 10 - 50 Units/L [facility] Blood 02/28/2025 4:12 PM CDT 02/28/2025 4:34 PM CDT Eagle Jerry MD LAB BLOOD ORDERABLES Final Res ult Performing Organization Address City/[facility]/ZIP Co de Phone Number HAM [facility] Department [place] [address] * POCT glucose (02/28/2025 11:31 AM CDT) Glucose, POC 161 70 - 199 mg/dL Blood 02/28/2025 11:3 1 AM CDT 02/28/2025 11:31 AM CDT Eagle Jerry MD LAB POCT ORDERABLES - DEVICE F inal Result Performing Organization Address [facility] de Phone Number [facility] Department [place] [address] * EGD (02/28/2025 9:24 AM CDT) Anatomical Region Laterality Modality Other Narrative Procedure Note Abril Paz MD - 02/28/2025 9:24 AM CDT [facility] Patient Name: Jud Mace Procedure Date: 02/28/2025 9:24 AM Date of : 1955 Admit Type: Inpatient Age: 70 Gender: Male Attending MD: Apple Salazar Room: [facility] ENDOSCOPY Note Status: Finalized Procedure: Upper GI endoscopy Indications: Suspected upper gastrointestinal bleeding Referring MD: Eagle Jerry M.D. Providers: Abril Paz M.D., Eagle Batres M.D. Comorbidities COPD, CAD s/p CABG 2017, HFrEF 35%, cirrhosis, hypertension. Medicines: Monitored Anesthesia Care Complications: No immediate complications. Estimated Blood Loss: Estimated blood loss: none. Procedure: Pre-Anesthesia Assessment: - Irma Protocol: - Pre-procedure Verification: Prior to theprocedure, the patient's identity was verified by full nameand date of . The patient's identity was verifiedon all pertinent medical records, including Historyand Physical. Also prior to the procedure, a Historyand Physical was performed, and patient medications, allergies and sensitivities were reviewed. The patient's tolerance of previous anesthesia was reviewed. The patient is competent. The risks and benefits of the procedure and the sedation optionsand risks were discussed with the patient. Allquestions were answered and informed consent was obtained. - Marking: The endoscopic procedure was visually marked on a patient wrist band delineating thepatient name, proposed procedure and endoscopist'sinitials. - Time-Out: Prior to the start of the procedure,the patient's identification, proposed procedure,accurate signed consent, correctly labeled images andrecords, and need for prophylactic antibiotics were verifiedby the physician, the nurse, the anesthesiologist, the bar machine operator production and the dental technician in the endoscopysuite. - Prior to the procedure, a History and Physicalwas performed, and patient medications, allergies and sensitivities were reviewed. The patient'stolerance of previous anesthesia was reviewed. - The risks and benefits of the procedure and the sedation options and risks were discussed with the patient. All questions were answered and informed consent was obtained. - Immediately prior to administration ofmedications, the patient was re-assessed for adequacy to receive sedatives. The benefits, risks, and alternatives to theprocedure and sedation were discussed and informed consentwas obtained. The scope was passed under direct vision. The GIF [id number] endoscope was introduced through the mouth, and advanced to the second partof duodenum. The upper GI endoscopy was accomplishedwith ease. The patient tolerated the procedure well. Findings: Grade I varices with no bleeding and no stigmata of recent bleedingwere found in the lower third of the esophagus. They were small in size.No red ramila signs were present. Portal hypertensive gastropathy was found in the gastric body and inthe gastric antrum. Patchy mildly erythematous mucosa without bleeding was found in the gastric antrum. The exam of the stomach was otherwise normal. The examined duodenum was normal. Impression: - Grade I esophageal varices with no bleeding andno stigmata of recent bleeding. - Portal hypertensive gastropathy. - Erythematous mucosa in the antrum. - Normal examined duodenum. - No specimens collected. Recommendation: - [facility] - Resume previous diet today. - Further recommendations per inpatient GIservice. Attending Participation: I was present and participated during the entire procedure, including non-chandler portions. Electronically signed by Abril Paz MD Abril Paz M.D. 02/28/2025 9:59:35 AM Number of Addenda: 0 Note Initiated On: 02/28/2025 9:24 AM CC Letter to: Eagle Jerry M.D. us Abril Paz MD ENDOSCOPY PROCEDUR ES Final Result * POCT glucose (02/28/2025 7:41 AM CDT) Glucose, POC 125 70 - 199 mg/dL Blood 02/28/2025 7:41 AM CDT 02/28/2025 7:41 AM CDT Eagle Jerry MD LAB POCT ORDERABLES - DEVICE F inal Result Performing Organization Address [facility] de Phone Number [facility] [place] [address] * eGFR (02/27/2025 9:39 PM CDT) eGFR 90 >=60 mL/min/1. 73 m2 Comment: Interpretive Data Reference Interval Normal >/= 90 mL/min/1.73m2 Mildly decreased* 60 - 89 mL/min/1.73m2 Mildly to moderately decreased 45 - 59 mL/min/1.73m2 Moderately to severely decreased 30 - 44 mL/min/1.73m2 Severely decreased 15 - 29 mL/min/1.73m2 Kidney Failure < 15 mL/min/1.73m2 *Relative to young adult level Estimated glomerular filtration rate is determined by the 2020 CKD-EPI equation recommended by the National Kidney Foundation (A Unifying Approach to GFR Estimation: Recommendations of the NKF-ASK Task Force on Reassessing the Inclusion of Race in Diagnosing Kidney Disease, JASN 2020). The CKD-EPI equation should not be used for patients with unstable renal function and has not been validated in children and those over 70. Current interpretive data was last reviewed 2021. Blood 02/27/2025 9:39 PM CDT 02/27/2025 11:33 PM CDT Eagle Jerry MD LAB BLOOD ORDERABLES Final Res ult Performing Organization Address [facility] Co de Phone Number HAM LARIOS [facility] Department [place] [address] * (ABNORMAL) Protime-INR (02/27/2025 9:39 PM CDT) PT 16.0(H) 9.7 - 13.0 sec INR 1.47(H) 0.90 - 1.20 [facility] Comment: Interpretive data Oral anticoagulant therapeutic ranges: Venous thromboembolism prophylaxis or treatment: 2.0-3.0 CARDIOLOGY Standard range: 2.0-3.0 High-intensity range: 2.5-3.5 Refer to indication-specific guidelines for appropriate target ranges for prosthetic heart valve replacement. Current interpretive data was last revised on 2019. Blood 02/27/2025 9:39 PM CDT 02/27/2025 11:32 PM CDT us Eagle Jerry MD LAB BLOOD ORDERABLES Final Res ult Performing Organization Address [facility] Co de Phone Number [facility] Department [place] [address] * (ABNORMAL) CBC without differential (02/27/2025 9:39 PM CDT) WBC 9.62 3.80 - 9.90 K/cumm Hgb 7.2(L) 13.0 - 17.5 g/dL [facility] Hct 21.2(L) 38.9 - 50.3 % [facility] Plt 94(L) 150 - 400 K/cumm [facility] MPV 12.7(H) 9.1 - 12.3 fL [facility] RBC 2.28(L) 4.30 - 5.80 M/cumm [facility] MCV 93.0 81.3 - 96.4 fL [facility] MCH 31.6 27.1 - 33.3 pg [facility] MCHC 34.0 32.3 - 35.7 g/dL [facility] RDW CV 16.8(H) 11.1 - 14.9 % [facility] RDW SD 55.5(H) 35.7 - 48.1 fL [facility] NRBC abs 0.02(H) 0.00 - 0.01 K/cumm [facility] Blood 02/27/2025 9:39 PM CDT 02/27/2025 11:32 PM CDT us Abril Paz MD LAB BLOOD ORDERABL ES Final Result Performing Organization Address City/[facility]/ZIP Co de Phone Number [facility] Department [place] [address] * (ABNORMAL) Magnesium (02/27/2025 9:39 PM CDT) Pathologist [facility] Magnesium 2.6(H) 1.4 - 2.5 mg/dL Blood 02/27/2025 9:39 PM CDT 02/27/2025 11:33 PM CDT Abril Paz MD LAB BLOOD ORDERABL ES Final Result Performing Organization Address City/[facility] Co de Phone Number [facility] Department [place] [address] * (ABNORMAL) Comprehensive metabolic panel (02/27/2025 9:39 PM CDT) [facility] Sodium 135 135 - 145 mmol/L Potassium, pl 4.7 3.3 - 4.9 mmol/L [facility] Chloride 101 97 - 110 mmol/L [facility] CO2 26 22 - 32 mmol/L [facility] Anion gap 8 2 - 15 mmol/L [facility] BUN 48(H) 6 - 25 mg/dL [facility] Creatinine 0.91 0.80 - 1.30 mg/dL [facility] Glucose 121 70 - 199 mg/dL [facility] Comment: Interpretive Data Fasting glucose >/= 126 mg/dl is diagnostic for diabetes. Fasting is defined as no caloric intake for at least 8 hours. Fasting glucose between 100 mg/dl to 125 mg/dl is diagnostic of prediabetes. In a patient with classic symptoms of hyperglycemia or hyperglycemic crisis, a random glucose >/= 200 mg/dl is diagnostic for diabetes. In the absence of unequivocal hyperglycemia, results should be confirmed by repeat testing. The classification and Diagnosis of Diabetes Diabetes Care 202; 46: S19-S40. Current interpretive data was last revised 2022. Calcium 7.5(L) 8.5 - 10.3 mg/dL [facility] Bilirubin, total 0.6 0.1 - 1.2 mg/dL [facility] Protein, pl 6.3(L) 6.5 - 8.5 g/dL [facility] Albumin 2.8(L) 3.5 - 5.0 g/dL [facility] Alk phos 93 40 - 130 Units/L [facility] ALT 59(H) 7 - 55 Units/L [facility] AST 52(H) 10 - 50 Units/L [facility] Blood 02/27/2025 9:39 PM CDT 02/27/2025 11:33 PM CDT Abril Paz MD LAB BLOOD ORDERABL ES Final Result Performing Organization Address [facility] Co de Phone Number [facility] [place] [place] [address] * POCT glucose (02/27/2025 8:55 PM CDT) Glucose, POC 179 70 - 199 mg/dL Blood 02/27/2025 8:55 PM CDT 02/27/2025 8:55 PM CDT Eagle Jerry MD LAB POCT ORDERABLES - DEVICE F inal Result Performing Organization Address [facility] Co de Phone Number [facility] Department [place] [employer] [place] [address] * (ABNORMAL) POCT glucose (02/27/2025 4:24 PM CDT) Glucose, POC 251(H) 70 - 199 mg/dL Blood 02/27/2025 4:24 PM CDT 02/27/2025 4:24 PM CDT Eagle Jerry MD LAB POCT ORDERABLES - DEVICE F inal Result Performing Organization Address [facility] Co de Phone Number [facility] [place] [address] * (ABNORMAL) Hemoglobin and hematocrit (02/27/2025 3:01 PM CDT) Hgb 7.7(L) 13.0 - 17.5 g/dL Hct 22.8(L) 38.9 - 50.3 % [facility] Blood 02/27/2025 3:01 PM CDT 02/27/2025 3:26 PM CDT Eagle Jerry MD LAB BLOOD ORDERABLES Final Res ult [facility] Department [place] [address] * XR Chest 1 View (02/27/2025 1:19 PM CDT) Anatomical Region Laterality Modality Body, Chest N/A Digital Radiogra phy 02/27/2025 2:43 PM CDT Impressions 02/27/2025 3:28 PM CDT The current study is compared with the prior radiograph dated 02/24/2025. Interval removal of right internal jugular central venous catheter. Unchanged alignment of broken median sternotomy wires. Surgical clips over the cardiac silhouette. Mild pulmonary edema. Small left pleural effusion with airspace opacities left lung base likely representing evolving pneumonia. No right pleural effusion. No pneumothorax. Unchanged cardiac mediastinal silhouette. Dictated by: Lincoln Cameron MD The radiology attending physician has personally reviewed this study, and had reviewed and/or edited this written report and agrees with it. Electronically signed by: Lynda Romano M.D. Narrative 02/27/2025 3:28 PM CDT EXAMINATION: 1 view chest radiograph Procedure Note Lynda Romano MD - 02/27/2025 EXAMINATION: 1 view chest radiograph IMPRESSION: The current study is compared with the prior radiograph dated 02/24/2025. Interval removal of right internal jugular central venous catheter. Unchanged alignment of broken median sternotomy wires. Surgical clips over the cardiac silhouette. Mild pulmonary edema. Small left pleural effusion with airspace opacities left lung base likely representing evolving pneumonia. No right pleural effusion. No pneumothorax. Unchanged cardiac mediastinal silhouette. Dictated by: Lincoln Cameron MD The radiology attending physician has personally reviewed this study, and had reviewed and/or edited this written report and agrees with it. Electronically signed by: Lynda Romano M.D. Eagle Jerry MD IMG XR PROCEDURES Final Result * (ABNORMAL) POCT glucose (02/27/2025 12:18 PM CDT) Glucose, POC 201(H) 70 - 199 mg/dL Blood 02/27/2025 12:1 8 PM CDT 02/27/2025 12:18 PM CDT Eagle Jerry MD LAB POCT ORDERABLES - DEVICE F inal Result Performing Organization Address City/[facility]/ZIP Co de Phone Number [facility] Department [place] [address] * Type and screen (02/27/2025 10:38 AM CDT) Kp, indirect Negative ABO Rh A Positive [facility] Blood 02/27/2025 10:3 8 AM CDT 02/27/2025 10:56 AM CDT Narrative [facility] - 02/27/2025 11:47 AM CDT Has the patient had Daratumumab or Isatuximab in the past 6 months?->Unknown Eagle Jerry MD LAB BLOOD BANK TEST ORDERABLES Final Result Performing Organization Address City/[facility]/ZIP Co de Phone Number [facility] [place] [address] * POCT glucose (02/27/2025 7:55 AM CDT) Glucose, POC 184 70 - 199 mg/dL Blood 02/27/2025 7:55 AM CDT 02/27/2025 7:55 AM CDT Eagle Jerry MD LAB POCT ORDERABLES - DEVICE F inal Result Performing Organization Address [facility] Co de Phone Number HAM [facility] Department [place] [address] * eGFR (02/27/2025 12:26 AM CDT) Pathologist [facility] eGFR 83 >=60 mL/min/1. 73 m2 Comment: Interpretive Data Reference Interval Normal >/= 90 mL/min/1.73m2 Mildly decreased* 60 - 89 mL/min/1.73m2 Mildly to moderately decreased 45 - 59 mL/min/1.73m2 Moderately to severely decreased 30 - 44 mL/min/1.73m2 Severely decreased 15 - 29 mL/min/1.73m2 Kidney Failure < 15 mL/min/1.73m2 *Relative to young adult level Estimated glomerular filtration rate is determined by the 2020 CKD-EPI equation recommended by the National Kidney Foundation (A Unifying Approach to GFR Estimation: Recommendations of the NKF-ASK Task Force on Reassessing the Inclusion of Race in Diagnosing Kidney Disease, JASN 2020). The CKD-EPI equation should not be used for patients with unstable renal function and has not been validated in children and those over 70. Current interpretive data was last reviewed 2021. Blood 02/27/2025 12:2 6 AM CDT 02/27/2025 12:36 AM CDT us Nolan Barrow MD LAB BLOOD ORDERABLES Asya l Result Performing Organization Address City/[facility]/ZIP Co de Phone Number [facility] Department [place] [address] * (ABNORMAL) CBC without differential (02/27/2025 12:26 AM CDT) [facility] WBC 8.13 3.80 - 9.90 K/cumm Hgb 7.0(L) 13.0 - 17.5 g/dL [facility] Hct 20.7(L) 38.9 - 50.3 % [facility] Plt 110(L) 150 - 400 K/cumm [facility] MPV 11.9 9.1 - 12.3 fL [facility] RBC 2.23(L) 4.30 - 5.80 M/cumm [facility] MCV 92.8 81.3 - 96.4 fL [facility] MCH 31.4 27.1 - 33.3 pg [facility] MCHC 33.8 32.3 - 35.7 g/dL [facility] RDW CV 16.5(H) 11.1 - 14.9 % [facility] RDW SD 54.7(H) 35.7 - 48.1 fL [facility] NRBC abs 0.02(H) 0.00 - 0.01 K/cumm [facility] Blood 02/27/2025 12:2 6 AM CDT 02/27/2025 12:36 AM CDT us Nolan Barrow MD LAB BLOOD ORDERABLES Asya l Result Performing Organization Address City/[facility]/ZIP Co de Phone Number [facility] Department of Laboratories [place], [place] [id number] * (ABNORMAL) Magnesium (02/27/2025 12:26 AM CDT) Pathologist [facility] Magnesium 2.6(H) 1.4 - 2.5 mg/dL Blood 02/27/2025 12:2 6 AM CDT 02/27/2025 12:36 AM CDT us Abril Paz MD LAB BLOOD ORDERABL ES Final Result Performing Organization Address City/[facility]/ZIP Co de Phone Number [facility] Department [place] [address] * (ABNORMAL) Comprehensive metabolic panel (02/27/2025 12:26 AM CDT) Sodium 133(L) 135 - 145 mmol/L Potassium, pl 4.6 3.3 - 4.9 mmol/L [facility] Chloride 100 97 - 110 mmol/L [facility] CO2 27 22 - 32 mmol/L [facility] Anion gap 6 2 - 15 mmol/L [facility] BUN 61(H) 6 - 25 mg/dL [facility] Creatinine 0.97 0.80 - 1.30 mg/dL [facility] Glucose 182 70 - 199 mg/dL [facility] Comment: Interpretive Data Fasting glucose >/= 126 mg/dl is diagnostic for diabetes. Fasting is defined as no caloric intake for at least 8 hours. Fasting glucose between 100 mg/dl to 125 mg/dl is diagnostic of prediabetes. In a patient with classic symptoms of hyperglycemia or hyperglycemic crisis, a random glucose >/= 200 mg/dl is diagnostic for diabetes. In the absence of unequivocal hyperglycemia, results should be confirmed by repeat testing. The classification and Diagnosis of Diabetes Diabetes Care 2021; 46: S19-S40. Current interpretive data was last revised 2022. Calcium 7.5(L) 8.5 - 10.3 mg/dL [facility] Bilirubin, total 0.5 0.1 - 1.2 mg/dL [facility] Protein, pl 5.9(L) 6.5 - 8.5 g/dL [facility] Albumin 2.8(L) 3.5 - 5.0 g/dL [facility] Alk phos 84 40 - 130 Units/L [facility] ALT 60(H) 7 - 55 Units/L [facility] AST 54(H) 10 - 50 Units/L [facility] Blood 02/27/2025 12:2 6 AM CDT 02/27/2025 12:36 AM CDT us Nolan Barrow MD LAB BLOOD ORDERABLES Asya ma Result [facility] Department [place] [address] * POCT glucose (02/26/2025 8:32 PM CDT) [facility] Glucose, POC 180 70 - 199 mg/dL Blood 02/26/2025 8:32 PM CDT 02/26/2025 8:32 PM CDT Eagle Jerry MD LAB POCT ORDERABLES - DEVICE F inal Result Performing Organization Address [facility] de Phone Number [facility] [place] [address] * POCT glucose (02/26/2025 5:01 PM CDT) Glucose, POC 143 70 - 199 mg/dL Blood 02/26/2025 5:01 PM CDT 02/26/2025 5:01 PM CDT Eagle Jerry MD LAB POCT ORDERABLES - DEVICE F inal Result Performing Organization Address [facility] Phone Number [facility] [place] [address] * (ABNORMAL) POCT glucose (02/26/2025 11:27 AM CDT) Glucose, POC 279(H) 70 - 199 mg/dL Blood 02/26/2025 11:2 7 AM CDT 02/26/2025 11:27 AM CDT Eagle Jerry MD LAB POCT ORDERABLES - DEVICE F inal Result Performing Organization Address [facility] de Phone Number [facility] [place] [address] * POCT glucose (02/26/2025 7:44 AM CDT) Glucose, POC 143 70 - 199 mg/dL Blood 02/26/2025 7:44 AM CDT 02/26/2025 7:44 AM CDT Nolan Barrow MD LAB POCT ORDERABLES - DEV ICE Final Result Performing Organization Address [facility] Co de Phone Number HAM [facility] [place] [address] * eGFR (02/26/2025 6:53 AM CDT) eGFR 76 >=60 mL/min/1. 73 m2 Comment: Interpretive Data Reference Interval Normal >/= 90 mL/min/1.73m2 Mildly decreased* 60 - 89 mL/min/1.73m2 Mildly to moderately decreased 45 - 59 mL/min/1.73m2 Moderately to severely decreased 30 - 44 mL/min/1.73m2 Severely decreased 15 - 29 mL/min/1.73m2 Kidney Failure < 15 mL/min/1.73m2 *Relative to young adult level Estimated glomerular filtration rate is determined by the 2020 CKD-EPI equation recommended by the National Kidney Foundation (A Unifying Approach to GFR Estimation: Recommendations of the NKF-ASK Task Force on Reassessing the Inclusion of Race in Diagnosing Kidney Disease, JASN 2020). The CKD-EPI equation should not be used for patients with unstable renal function and has not been validated in children and those over 70. Current interpretive data was last reviewed 2021. Blood 02/26/2025 6:53 AM CDT 02/26/2025 6:58 AM CDT us Emelia Hunter MD LAB BLOOD ORDERABLES F inal Result Performing Organization Address City/[facility] Co de Phone Number [facility] Department [place] [address] * (ABNORMAL) Magnesium (02/26/2025 6:53 AM CDT) Magnesium 2.8(H) 1.4 - 2.5 mg/dL Blood 02/26/2025 6:53 AM CDT 02/26/2025 6:58 AM CDT us Emelia Hunter MD LAB BLOOD ORDERABLES F inal Result [facility] Department [place] [address] * (ABNORMAL) Basic metabolic panel (02/26/2025 6:53 AM CDT) Sodium 133(L) 135 - 145 mmol/L Potassium, pl 4.9 3.3 - 4.9 mmol/L [facility] Chloride 98 97 - 110 mmol/L [facility] CO2 29 22 - 32 mmol/L [facility] Anion gap 6 2 - 15 mmol/L [facility] BUN 66(H) 6 - 25 mg/dL [facility] Creatinine 1.05 0.80 - 1.30 mg/dL [facility] Glucose 147 70 - 199 mg/dL [facility] Comment: Interpretive Data Fasting glucose >/= 126 mg/dl is diagnostic for diabetes. Fasting is defined as no caloric intake for at least 8 hours. Fasting glucose between 100 mg/dl to 125 mg/dl is diagnostic of prediabetes. In a patient with classic symptoms of hyperglycemia or hyperglycemic crisis, a random glucose >/= 200 mg/dl is diagnostic for diabetes. In the absence of unequivocal hyperglycemia, results should be confirmed by repeat testing. The classification and Diagnosis of Diabetes Diabetes Care 202; 46: S19-S40. Current interpretive data was last revised 2022. Calcium 7.9(L) 8.5 - 10.3 mg/dL [facility] Blood 02/26/2025 6:53 AM CDT 02/26/2025 6:58 AM CDT Emelia Hunter MD LAB BLOOD ORDERABLES F inal Result [facility] Department [place] [address] * POCT glucose (02/25/2025 7:58 PM CDT) Glucose, POC 154 70 - 199 mg/dL Blood 02/25/2025 7:58 PM CDT 02/25/2025 7:58 PM CDT Nolan Barrow MD LAB POCT ORDERABLES - DEV ICE Final Result Performing Organization Address City/[facility]/ZIP Co de Phone Number [facility] Department [place] [address] * POCT glucose (02/25/2025 4:26 PM CDT) Glucose, POC 166 70 - 199 mg/dL Blood 02/25/2025 4:26 PM CDT 02/25/2025 4:26 PM CDT Nolan Barrow MD LAB POCT ORDERABLES - DEV ICE Final Result Performing Organization Address [facility] de Phone Number [facility] Department [place] [address] * Infection Prevention Roberto auris PCR, surveillance Axilla/Groin (02/25/2025 12:40 PM CDT) [facility] Roberto auris DNA Not Detected Not Detected [facility] Comment: Interpretive Data Testing performed by [facility] Disease [facility] using the [employer] 6800 Roberto auris assay. This assay detects DNA from Roberto auris using Real-Time PCR. This assay is laboratory developed and is not cleared by the [facility] Food and Drug Administration. The performance characteristics have been verified by the [facility]. Axilla/Groin 02/25/2025 12:4 0 PM CDT 02/25/2025 1:04 PM CDT Narrative [facility] - 02/26/2025 1:42 PM CDT Order placed by [facility] due to ring surveillance. Instant Order Generic Provider LAB MICROBIOLOGY - GENERAL ORDERABLES Final Result Performing Organization Address City/[facility] Co de Phone Number [facility] Department [place] [address] [facility] * (ABNORMAL) POCT glucose (02/25/2025 11:16 AM CDT) Glucose, POC 204(H) 70 - 199 mg/dL Blood 02/25/2025 11:1 6 AM CDT 02/25/2025 11:16 AM CDT Nolan Barrow MD LAB POCT ORDERABLES - DEV ICE Final Result [facility] [place] [address] * (ABNORMAL) POCT glucose (02/25/2025 9:09 AM CDT) Glucose, POC 205(H) 70 - 199 mg/dL Blood 02/25/2025 9:09 AM CDT 02/25/2025 9:09 AM CDT Nolan Barrow MD LAB POCT ORDERABLES - DEV ICE Final Result Performing Organization Address City/[facility]/ZIP Co de Phone Number [facility] Department [place] [address] * eGFR (02/24/2025 8:06 PM CDT) eGFR 73 >=60 mL/min/1. 73 m2 Comment: Interpretive Data Reference Interval Normal >/= 90 mL/min/1.73m2 Mildly decreased* 60 - 89 mL/min/1.73m2 Mildly to moderately decreased 45 - 59 mL/min/1.73m2 Moderately to severely decreased 30 - 44 mL/min/1.73m2 Severely decreased 15 - 29 mL/min/1.73m2 Kidney Failure < 15 mL/min/1.73m2 *Relative to young adult level Estimated glomerular filtration rate is determined by the 2020 CKD-EPI equation recommended by the National Kidney Foundation (A Unifying Approach to GFR Estimation: Recommendations of the NKF-ASK Task Force on Reassessing the Inclusion of Race in Diagnosing Kidney Disease, JASN 2020). The CKD-EPI equation should not be used for patients with unstable renal function and has not been validated in children and those over 70. Current interpretive data was last reviewed 2021. Blood 02/24/2025 8:06 PM CDT 02/24/2025 8:22 PM CDT us Edi Olvera MD LAB BLOOD ORDERABLES Asya l Result [facility] Department [place] [address] * (ABNORMAL) CBC without differential (02/24/2025 8:06 PM CDT) WBC 13.73(H) 3.80 - 9.90 K/cumm Hgb 8.3(L) 13.0 - 17.5 g/dL [facility] Hct 24.3(L) 38.9 - 50.3 % [facility] Plt 96(L) 150 - 400 K/cumm [facility] MPV 12.4(H) 9.1 - 12.3 fL [facility] RBC 2.63(L) 4.30 - 5.80 M/cumm [facility] MCV 92.4 81.3 - 96.4 fL [facility] MCH 31.6 27.1 - 33.3 pg [facility] MCHC 34.2 32.3 - 35.7 g/dL [facility] RDW CV 16.1(H) 11.1 - 14.9 % [facility] RDW SD 53.3(H) 35.7 - 48.1 fL [facility] NRBC abs 0.08(H) 0.00 - 0.01 K/cumm [facility] Blood 02/24/2025 8:06 PM CDT 02/24/2025 8:22 PM CDT Edi Olvera MD LAB BLOOD ORDERABLES Asya l Result Performing Organization Address City/[facility]/ZIP Co de Phone Number [facility] Department [place] [address] * (ABNORMAL) Magnesium (02/24/2025 8:06 PM CDT) Pathologist [facility] Magnesium 2.9(H) 1.4 - 2.5 mg/dL Blood 02/24/2025 8:06 PM CDT 02/24/2025 8:22 PM CDT Edi Olvera MD LAB BLOOD ORDERABLES Asya l Result Performing Organization Address [facility] Co de Phone Number [facility] Department [place] [address] * (ABNORMAL) Comprehensive metabolic panel (02/24/2025 8:06 PM CDT) Pathologist [facility] Sodium 132(L) 135 - 145 mmol/L Potassium, pl 4.9 3.3 - 4.9 mmol/L [facility] Chloride 97 97 - 110 mmol/L [facility] CO2 25 22 - 32 mmol/L [facility] Anion gap 10 2 - 15 mmol/L [facility] BUN 80(H) 6 - 25 mg/dL [facility] Creatinine 1.09 0.80 - 1.30 mg/dL [facility] Glucose 271(H) 70 - 199 mg/dL [facility] Comment: Interpretive Data Fasting glucose >/= 126 mg/dl is diagnostic for diabetes. Fasting is defined as no caloric intake for at least 8 hours. Fasting glucose between 100 mg/dl to 125 mg/dl is diagnostic of prediabetes. In a patient with classic symptoms of hyperglycemia or hyperglycemic crisis, a random glucose >/= 200 mg/dl is diagnostic for diabetes. In the absence of unequivocal hyperglycemia, results should be confirmed by repeat testing. The classification and Diagnosis of Diabetes Diabetes Care 2021; 46: S19-S40. Current interpretive data was last revised 2022. Calcium 8.4(L) 8.5 - 10.3 mg/dL [facility] Bilirubin, total 0.5 0.1 - 1.2 mg/dL [facility] Protein, pl 6.4(L) 6.5 - 8.5 g/dL [facility] Albumin 2.8(L) 3.5 - 5.0 g/dL [facility] Alk phos 69 40 - 130 Units/L [facility] ALT 45 7 - 55 Units/L [facility] AST 46 10 - 50 Units/L [facility] Blood 02/24/2025 8:06 PM CDT 02/24/2025 8:22 PM CDT us Edi Olvera MD LAB BLOOD ORDERABLES Asya l Result Performing Organization Address City/[facility] Co de Phone Number [facility] [place] [employer] [place] [address] * (ABNORMAL) POCT glucose (02/24/2025 8:05 PM CDT) Glucose, POC 283(H) 70 - 199 mg/dL Blood 02/24/2025 8:05 PM CDT 02/24/2025 8:05 PM CDT us Edi Olvera MD LAB POCT ORDERABLES - DEV ICE Final Result Performing Organization Address [facility] Co de Phone Number [facility] Department [place] [employer] [place] [address] * POCT glucose (02/24/2025 5:56 PM CDT) Glucose, POC 180 70 - 199 mg/dL Blood 02/24/2025 5:56 PM CDT 02/24/2025 5:56 PM CDT us Edi Olvera MD LAB POCT ORDERABLES - DEV ICE Final Result Performing Organization Address [facility] Co de Phone Number [facility] Department [place] [address] * POCT glucose (02/24/2025 12:31 PM CDT) Glucose, POC 182 70 - 199 mg/dL Blood 02/24/2025 12:3 1 PM CDT 02/24/2025 12:31 PM CDT Edi Olvera MD LAB POCT ORDERABLES - DEV ICE Final Result [facility] Department [place] [address] * XR Chest 1 View (02/24/2025 9:46 AM CDT) Anatomical Region Laterality Modality Body, Chest N/A Digital Radiogra phy 02/24/2025 10:4 9 AM CDT Impressions 02/24/2025 10:50 AM CDT The current study is compared with the prior radiograph dated 02/22/2025. Patient is status post median sternotomy with no significant change in multiple fractures of sternal wires. A right internal jugular catheter is in place, tip overlies the superior vena cava. There is mildly improved aeration of the left lower lobe with residual partial collapse. No right pleural effusion. No pneumothorax. Unchanged cardiomediastinal silhouette. Unchanged small left effusion. Dictated by: Fatmata Sears M.D. The radiology attending physician has personally reviewed this study, and had reviewed and/or edited this written report and agrees with it. Electronically signed by: Lynda Romano M.D. Narrative 02/24/2025 10:50 AM CDT EXAMINATION: 1 view chest radiograph Procedure Note Lynda Romano MD - 02/24/2025 EXAMINATION: 1 view chest radiograph IMPRESSION: The current study is compared with the prior radiograph dated 02/22/2025. Patient is status post median sternotomy with no significant change in multiple fractures of sternal wires. A right internal jugular catheter is in place, tip overlies the superior vena cava. There is mildly improved aeration of the left lower lobe with residual partial collapse. No right pleural effusion. No pneumothorax. Unchanged cardiomediastinal silhouette. Unchanged small left effusion. Dictated by: Fatmata Sears M.D. The radiology attending physician has personally reviewed this study, and had reviewed and/or edited this written report and agrees with it. Electronically signed by: Lynda Romano M.D. Edi Olvera MD IMG XR PROCEDURES Final R esult * (ABNORMAL) CBC without differential (02/24/2025 8:19 AM CDT) WBC 12.41(H) 3.80 - 9.90 K/cumm Hgb 8.4(L) 13.0 - 17.5 g/dL [facility] Hct 25.2(L) 38.9 - 50.3 % [facility] Plt 85(L) 150 - 400 K/cumm [facility] MPV 11.8 9.1 - 12.3 fL [facility] RBC 2.72(L) 4.30 - 5.80 M/cumm [facility] MCV 92.6 81.3 - 96.4 fL [facility] MCH 30.9 27.1 - 33.3 pg [facility] MCHC 33.3 32.3 - 35.7 g/dL [facility] RDW CV 15.9(H) 11.1 - 14.9 % [facility] RDW SD 53.0(H) 35.7 - 48.1 fL [facility] NRBC abs 0.04(H) 0.00 - 0.01 K/cumm [facility] Blood 02/24/2025 8:19 AM CDT 02/24/2025 9:25 AM CDT Edi Olvera MD LAB BLOOD ORDERABLES Asya ma Result [facility] Department [place] [address] * POCT glucose (02/24/2025 7:37 AM CDT) Glucose, POC 172 70 - 199 mg/dL Blood 02/24/2025 7:37 AM CDT 02/24/2025 7:37 AM CDT Edi Olvera MD LAB POCT ORDERABLES - DEV ICE Final Result Performing Organization Address City/[facility]/ZIP Co de Phone Number [facility] Department [place] [address] * Calcium, ionized, whole blood (02/23/2025 9:17 PM CDT) Ca, ionized, bld 4.68 4.50 - 5.10 mg/dL Blood 02/23/2025 9:17 PM CDT 02/23/2025 9:27 PM CDT us Edi Olvera MD LAB BLOOD ORDERABLES Asya l Result Performing Organization Address City/[facility]/ZIP Co de Phone Number [facility] Department [place] [address] * eGFR (02/23/2025 9:17 PM CDT) eGFR 73 >=60 mL/min/1. 73 m2 Comment: Interpretive Data Reference Interval Normal >/= 90 mL/min/1.73m2 Mildly decreased* 60 - 89 mL/min/1.73m2 Mildly to moderately decreased 45 - 59 mL/min/1.73m2 Moderately to severely decreased 30 - 44 mL/min/1.73m2 Severely decreased 15 - 29 mL/min/1.73m2 Kidney Failure < 15 mL/min/1.73m2 *Relative to young adult level Estimated glomerular filtration rate is determined by the 2020 CKD-EPI equation recommended by the National Kidney Foundation (A Unifying Approach to GFR Estimation: Recommendations of the NKF-ASK Task Force on Reassessing the Inclusion of Race in Diagnosing Kidney Disease, JASN 2021). The CKD-EPI equation should not be used for patients with unstable renal function and has not been validated in children and those over 70. Current interpretive data was last reviewed 2021. Blood 02/23/2025 9:17 PM CDT 02/23/2025 9:30 PM CDT Edi Olvera MD LAB BLOOD ORDERABLES Asya l Result Performing Organization Address [facility] Co de Phone Number [facility] Department [place] [address] * (ABNORMAL) CBC without differential (02/23/2025 9:17 PM CDT) WBC 12.00(H) 3.80 - 9.90 K/cumm Hgb 9.0(L) 13.0 - 17.5 g/dL [facility] Hct 26.2(L) 38.9 - 50.3 % [facility] Plt 83(L) 150 - 400 K/cumm [facility] MPV 11.5 9.1 - 12.3 fL [facility] RBC 2.83(L) 4.30 - 5.80 M/cumm [facility] MCV 92.6 81.3 - 96.4 fL [facility] MCH 31.8 27.1 - 33.3 pg [facility] MCHC 34.4 32.3 - 35.7 g/dL [facility] RDW CV 15.6(H) 11.1 - 14.9 % [facility] RDW SD 52.4(H) 35.7 - 48.1 fL [facility] NRBC abs 0.04(H) 0.00 - 0.01 K/cumm [facility] Blood 02/23/2025 9:17 PM CDT 02/23/2025 9:30 PM CDT Edi Olvera MD LAB BLOOD ORDERABLES Asya l Result Performing Organization Address [facility]/ZIP Co de Phone Number [facility] Department [place] [address] * (ABNORMAL) Magnesium (02/23/2025 9:17 PM CDT) Magnesium 3.0(H) 1.4 - 2.5 mg/dL Blood 02/23/2025 9:17 PM CDT 02/23/2025 9:30 PM CDT Edi Olvera MD LAB BLOOD ORDERABLES Asya l Result [facility] Department [place] [address] * (ABNORMAL) Comprehensive metabolic panel (02/23/2025 9:17 PM CDT) Pathologist [facility] Sodium 136 135 - 145 mmol/L Potassium, pl 4.9 3.3 - 4.9 mmol/L [facility] Chloride 102 97 - 110 mmol/L [facility] CO2 27 22 - 32 mmol/L [facility] Anion gap 7 2 - 15 mmol/L [facility] BUN 84(H) 6 - 25 mg/dL [facility] Creatinine 1.09 0.80 - 1.30 mg/dL [facility] Glucose 173 70 - 199 mg/dL [facility] Comment: Interpretive Data Fasting glucose >/= 126 mg/dl is diagnostic for diabetes. Fasting is defined as no caloric intake for at least 8 hours. Fasting glucose between 100 mg/dl to 125 mg/dl is diagnostic of prediabetes. In a patient with classic symptoms of hyperglycemia or hyperglycemic crisis, a random glucose >/= 200 mg/dl is diagnostic for diabetes. In the absence of unequivocal hyperglycemia, results should be confirmed by repeat testing. The classification and Diagnosis of Diabetes Diabetes Care 2021; 46: S19-S40. Current interpretive data was last revised 2022. Calcium 8.3(L) 8.5 - 10.3 mg/dL [facility] Bilirubin, total 0.5 0.1 - 1.2 mg/dL [facility] Protein, pl 6.0(L) 6.5 - 8.5 g/dL [facility] Albumin 2.4(L) 3.5 - 5.0 g/dL [facility] Alk phos 67 40 - 130 Units/L [facility] ALT 46 7 - 55 Units/L [facility] AST 46 10 - 50 Units/L [facility] Blood 02/23/2025 9:17 PM CDT 02/23/2025 9:30 PM CDT us Edi Olvera MD LAB BLOOD ORDERABLES Asya l Result Performing Organization Address [facility] Co de Phone Number [facility] [place] [place] [address] * POCT glucose (02/23/2025 8:33 PM CDT) Glucose, POC 198 70 - 199 mg/dL Blood 02/23/2025 8:33 PM CDT 02/23/2025 8:33 PM CDT us Edi Olvrea MD LAB POCT ORDERABLES - DEV ICE Final Result Performing Organization Address [facility] Co de Phone Number [facility] Department [place] [place] [address] * (ABNORMAL) POCT glucose (02/23/2025 4:25 PM CDT) Glucose, POC 225(H) 70 - 199 mg/dL Blood 02/23/2025 4:25 PM CDT 02/23/2025 4:25 PM CDT us Edi Olvera MD LAB POCT ORDERABLES - DEV ICE Final Result Performing Organization Address [facility] Co de Phone Number [facility] [place] [address] * (ABNORMAL) POCT glucose (02/23/2025 12:07 PM CDT) [facility] Glucose, POC 251(H) 70 - 199 mg/dL Blood 02/23/2025 12:0 7 PM CDT 02/23/2025 12:07 PM CDT Edi Olvera MD LAB POCT ORDERABLES - DEV ICE Final Result Performing Organization Address [facility] Co de Phone Number [facility] Department [place] [address] * (ABNORMAL) Iron profile w/ IBC (02/23/2025 8:09 AM CDT) [facility] Iron 28(L) 50 - 150 mcg/dL TIBC 229(L) 250 - 400 mcg/dL [facility] Transferrin saturation 12(L) 20 - 50 % [facility] Blood 02/23/2025 8:09 AM CDT 02/23/2025 8:17 AM CDT us Edi Olvera MD LAB BLOOD ORDERABLES Asya l Result Performing Organization Address City/[facility] de Phone Number [facility] Department [place] [address] * (ABNORMAL) CBC without differential (02/23/2025 8:09 AM CDT) [facility] WBC 13.25(H) 3.80 - 9.90 K/cumm Hgb 10.2(L) 13.0 - 17.5 g/dL [facility] Hct 29.8(L) 38.9 - 50.3 % [facility] Plt 92(L) 150 - 400 K/cumm [facility] MPV 12.0 9.1 - 12.3 fL [facility] RBC 3.20(L) 4.30 - 5.80 M/cumm [facility] MCV 93.1 81.3 - 96.4 fL [facility] MCH 31.9 27.1 - 33.3 pg [facility] MCHC 34.2 32.3 - 35.7 g/dL [facility] RDW CV 15.6(H) 11.1 - 14.9 % [facility] RDW SD 52.9(H) 35.7 - 48.1 fL [facility] NRBC abs 0.03(H) 0.00 - 0.01 K/cumm [facility] Blood 02/23/2025 8:09 AM CDT 02/23/2025 8:17 AM CDT us Edi Olvera MD LAB BLOOD ORDERABLES Asya l Result [facility] [place] [address] * Folate (02/23/2025 8:09 AM CDT) Folic acid 13.1 >=5.0 ng/mL Blood 02/23/2025 8:09 AM CDT 02/23/2025 8:17 AM CDT us Edi Olvera MD LAB BLOOD ORDERABLES Asya l Result Performing Organization Address City/[facility]/ZIP Co de Phone Number [facility] Department [place] [address] * Ferritin (02/23/2025 8:09 AM CDT) Pathologist [facility] Ferritin 143 30 - 400 ng/mL Blood 02/23/2025 8:09 AM CDT 02/23/2025 8:17 AM CDT us Edi Olvera MD LAB BLOOD ORDERABLES Asya l Result [facility] Department [place] [address] * (ABNORMAL) Vitamin B12 (02/23/2025 8:09 AM CDT) Pathologist [facility] Vitamin B12 >2,000(H) 230 - 1,250 pg/mL Blood 02/23/2025 8:09 AM CDT 02/23/2025 8:17 AM CDT us Edi Olvera MD LAB BLOOD ORDERABLES Asya l Result [facility] Department [place] [address] * POCT glucose (02/23/2025 8:08 AM CDT) [facility] Glucose, POC 167 70 - 199 mg/dL Blood 02/23/2025 8:08 AM CDT 02/23/2025 8:08 AM CDT Edi Olvera MD LAB POCT ORDERABLES - DEV ICE Final Result Performing Organization Address [facility] Co de Phone Number [facility] Department [place] [address] * eGFR (02/23/2025 6:17 AM CDT) [facility] eGFR 69 >=60 mL/min/1. 73 m2 Comment: Interpretive Data Reference Interval Normal >/= 90 mL/min/1.73m2 Mildly decreased* 60 - 89 mL/min/1.73m2 Mildly to moderately decreased 45 - 59 mL/min/1.73m2 Moderately to severely decreased 30 - 44 mL/min/1.73m2 Severely decreased 15 - 29 mL/min/1.73m2 Kidney Failure < 15 mL/min/1.73m2 *Relative to young adult level Estimated glomerular filtration rate is determined by the 2020 CKD-EPI equation recommended by the National Kidney Foundation (A Unifying Approach to GFR Estimation: Recommendations of the NKF-ASK Task Force on Reassessing the Inclusion of Race in Diagnosing Kidney Disease, JASN 2020). The CKD-EPI equation should not be used for patients with unstable renal function and has not been validated in children and those over 70. Current interpretive data was last reviewed 2021. Blood 02/23/2025 6:17 AM CDT 02/23/2025 6:41 AM CDT Edi Olvera MD LAB BLOOD ORDERABLES Asya l Result Performing Organization Address [facility] Co de Phone Number [facility] Department [place] [address] * (ABNORMAL) Magnesium (02/23/2025 6:17 AM CDT) Magnesium 3.0(H) 1.4 - 2.5 mg/dL Blood 02/23/2025 6:17 AM CDT 02/23/2025 6:41 AM CDT Edi Olvera MD LAB BLOOD ORDERABLES Asya l Result Performing Organization Address [facility] de Phone Number [facility] [place] [address] * Blood gas, venous (02/23/2025 6:17 AM CDT) pH, Venous 7.40 7.32 - 7.43 PCO2, Venous 46 40 - 50 mmHg [facility] PO2, Venous 39 mmHg [facility] Comment: Interpretive Data No Reference Range Established Current Interpretive Data was last revised on 2018. HCO3 Venous, Calculated 29 20 - 30 mmol/L [facility] BE, venous 3 mmol/L [facility] Comment: Interpretive Data No Reference Range Established Current Interpretive Data was last revised on 2018. Blood 02/23/2025 6:17 AM CDT 02/23/2025 6:31 AM CDT Edi Olvera MD LAB BLOOD ORDERABLES Asya l Result Performing Organization Address [facility] Co de Phone Number [facility] Department [place] [address] * (ABNORMAL) Comprehensive metabolic panel (02/23/2025 6:17 AM CDT) Sodium 132(L) 135 - 145 mmol/L Potassium, pl 4.6 3.3 - 4.9 mmol/L [facility] Chloride 98 97 - 110 mmol/L [facility] CO2 28 22 - 32 mmol/L [facility] Anion gap 6 2 - 15 mmol/L [facility] BUN 81(H) 6 - 25 mg/dL [facility] Creatinine 1.13 0.80 - 1.30 mg/dL [facility] Glucose 191 70 - 199 mg/dL [facility] Comment: Interpretive Data Fasting glucose >/= 126 mg/dl is diagnostic for diabetes. Fasting is defined as no caloric intake for at least 8 hours. Fasting glucose between 100 mg/dl to 125 mg/dl is diagnostic of prediabetes. In a patient with classic symptoms of hyperglycemia or hyperglycemic crisis, a random glucose >/= 200 mg/dl is diagnostic for diabetes. In the absence of unequivocal hyperglycemia, results should be confirmed by repeat testing. The classification and Diagnosis of Diabetes Diabetes Care 2021; 46: S19-S40. Current interpretive data was last revised 2022. Calcium 8.0(L) 8.5 - 10.3 mg/dL [facility] Bilirubin, total 0.6 0.1 - 1.2 mg/dL [facility] Protein, pl 6.1(L) 6.5 - 8.5 g/dL [facility] Albumin 2.4(L) 3.5 - 5.0 g/dL [facility] Alk phos 80 40 - 130 Units/L [facility] ALT 52 7 - 55 Units/L [facility] AST 49 10 - 50 Units/L [facility] Blood 02/23/2025 6:17 AM CDT 02/23/2025 6:41 AM CDT us Edi Olvera MD LAB BLOOD ORDERABLES Asya anil Result [facility] [place] [address] * POCT glucose (02/23/2025 3:43 AM CDT) [facility] Glucose, POC 195 70 - 199 mg/dL Blood 02/23/2025 3:43 AM CDT 02/23/2025 3:43 AM CDT us Edi Olvera MD LAB POCT ORDERABLES - [place] [address] * POCT glucose (02/23/2025 12:02 AM CDT) [facility] Glucose, POC 194 70 - 199 mg/dL Blood 02/23/2025 12:0 2 AM CDT 02/23/2025 12:02 AM CDT us Edi Olvera MD LAB POCT ORDERABLES - DEV ICE Final Result Performing Organization Address City/[facility] [place] [address] * (ABNORMAL) CBC without differential (02/22/2025 10:18 PM CDT) [facility] WBC 12.55(H) 3.80 - 9.90 K/cumm Hgb 10.1(L) 13.0 - 17.5 g/dL [facility] Hct 30.0(L) 38.9 - 50.3 % [facility] Plt 91(L) 150 - 400 K/cumm [facility] MPV 12.2 9.1 - 12.3 fL [facility] RBC 3.22(L) 4.30 - 5.80 M/cumm [facility] MCV 93.2 81.3 - 96.4 fL [facility] MCH 31.4 27.1 - 33.3 pg [facility] MCHC 33.7 32.3 - 35.7 g/dL [facility] RDW CV 15.6(H) 11.1 - 14.9 % [facility] RDW SD 53.1(H) 35.7 - 48.1 fL [facility] NRBC abs 0.02(H) 0.00 - 0.01 K/cumm [facility] Blood 02/22/2025 10:1 8 PM CDT 02/22/2025 10:39 PM CDT Edi Olvera MD LAB BLOOD ORDERABLES Asya l Result Performing Organization Address [facility] Co de Phone Number [facility] Department [place] [address] * (ABNORMAL) Blood gas, venous (02/22/2025 10:18 PM CDT) pH, Venous 7.35 7.32 - 7.43 PCO2, Venous 52(H) 40 - 50 mmHg [facility] PO2, Venous 41 mmHg [facility] Comment: Interpretive Data No Reference Range Established Current Interpretive Data was last revised on 2018. HCO3 Venous, Calculated 30 20 - 30 mmol/L [facility] BE, venous 2 mmol/L [facility] Comment: Interpretive Data No Reference Range Established Current Interpretive Data was last revised on 2018. Blood 02/22/2025 10:1 8 PM CDT 02/22/2025 10:31 PM CDT Edi Olvera MD LAB BLOOD ORDERABLES Asya l Result Performing Organization Address City/[facility] Co de Phone Number [facility] Department [place] [address] * POCT glucose (02/22/2025 9:47 PM CDT) Glucose, POC 159 70 - 199 mg/dL Blood 02/22/2025 9:47 PM CDT 02/22/2025 9:47 PM CDT us Edi Olvera MD LAB POCT ORDERABLES - DEV ICE Final Result [facility] Department [place] [address] * (ABNORMAL) POCT glucose (02/22/2025 4:32 PM CDT) [facility] Glucose, POC 208(H) 70 - 199 mg/dL Blood 02/22/2025 4:32 PM CDT 02/22/2025 4:32 PM CDT us Edi Olvera MD LAB POCT ORDERABLES - DEV ICE Final Result Performing Organization Address [facility] Co de Phone Number [facility] Department [place] [address] * (ABNORMAL) CBC without differential (02/22/2025 3:32 PM CDT) [facility] WBC 11.82(H) 3.80 - 9.90 K/cumm Hgb 10.3(L) 13.0 - 17.5 g/dL [facility] Hct 30.6(L) 38.9 - 50.3 % [facility] Plt 100(L) 150 - 400 K/cumm [facility] MPV 12.3 9.1 - 12.3 fL [facility] RBC 3.27(L) 4.30 - 5.80 M/cumm [facility] MCV 93.6 81.3 - 96.4 fL [facility] MCH 31.5 27.1 - 33.3 pg [facility] MCHC 33.7 32.3 - 35.7 g/dL [facility] RDW CV 15.5(H) 11.1 - 14.9 % [facility] RDW SD 53.1(H) 35.7 - 48.1 fL [facility] NRBC abs 0.03(H) 0.00 - 0.01 K/cumm [facility] Blood 02/22/2025 3:32 PM CDT 02/22/2025 3:42 PM CDT Edi Olvera MD LAB BLOOD ORDERABLES Asya l Result [facility] Department [place] [address] * XR Chest 1 View (02/22/2025 1:10 PM CDT) Anatomical Region Laterality Modality Body, Chest N/A Digital Radiogra phy 02/22/2025 3:34 PM CDT Impressions 02/22/2025 3:35 PM CDT The current study is compared with the prior radiograph dated 02/21/2025. Patient is status post median sternotomy with unchanged fractures of the sternal wires. A right internal jugular catheter is in place, tip overlies the superior cavoatrial junction. Slight decrease in moderate left pleural effusion with no change in associated atelectatic collapse of the left lower lobe. No right pleural effusion. No pulmonary edema. There may be a small right pleural effusion. No pneumothorax. Cardiomediastinal silhouette is obscured. Dictated by: Fatmata Sears M.D. The radiology attending physician has personally reviewed this study, and had reviewed and/or edited this written report and agrees with it. Electronically signed by: Elis Noonan M.D. Narrative 02/22/2025 3:35 PM CDT EXAMINATION: 1 view chest radiograph Procedure Note Elis Noonan MD - 02/22/2025 EXAMINATION: 1 view chest radiograph IMPRESSION: The current study is compared with the prior radiograph dated 02/21/2025. Patient is status post median sternotomy with unchanged fractures of the sternal wires. A right internal jugular catheter is in place, tip overlies the superior cavoatrial junction. Slight decrease in moderate left pleural effusion with no change in associated atelectatic collapse of the left lower lobe. No right pleural effusion. No pulmonary edema. There may be a small right pleural effusion. No pneumothorax. Cardiomediastinal silhouette is obscured. Dictated by: Fatmata Sears M.D. The radiology attending physician has personally reviewed this study, and had reviewed and/or edited this written report and agrees with it. Electronically signed by: Elis Noonan M.D. Edi Olvera MD IMG XR PROCEDURES Final R esult * (ABNORMAL) Protime-INR (02/22/2025 12:02 PM CDT) PT 14.0(H) 9.7 - 13.0 sec INR 1.29(H) 0.90 - 1.20 [facility] Comment: Interpretive data Oral anticoagulant therapeutic ranges: Venous thromboembolism prophylaxis or treatment: 2.0-3.0 CARDIOLOGY Standard range: 2.0-3.0 High-intensity range: 2.5-3.5 Refer to indication-specific guidelines for appropriate target ranges for prosthetic heart valve replacement. Current interpretive data was last revised on 2019. Blood 02/22/2025 12:0 2 PM CDT 02/22/2025 12:25 PM CDT Result [facility] Edi Olvera MD LAB BLOOD ORDERABLES Asya l Result Performing Organization Address [facility]/ZIP Co de Phone Number [facility] Department [place] [address] * POCT glucose (02/22/2025 12:01 PM CDT) Glucose, POC 188 70 - 199 mg/dL Blood 02/22/2025 12:0 1 PM CDT 02/22/2025 12:01 PM CDT Edi Olvera MD LAB POCT ORDERABLES - DEV ICE Final Result Performing Organization Address [facility] Co de Phone Number [facility] Department [place] [address] * Pneumonia PCR Sputum (02/22/2025 8:52 AM CDT) C. pneumoniae DNA Not Detected Not Detected Legionella pneumophila DNA Not Detected Not Detected [facility] M. pneumoniae DNA Not Detected Not Detected [facility] Adenovirus DNA Not Detected Not Detected [facility] Coronavirus (229E, OC43, HKU1, NL63) RNA Not Detected Not Detected [facility] Metapneumovirus RNA Not Detected Not Detected [facility] Rhinovirus/Enterov irus RNA Not Detected Not Detected [facility] Influenza A RNA Not Detected Not Detected [facility] Influenza B RNA Not Detected Not Detected [facility] Parainfluenza virus (1-4) RNA Not Detected Not Detected [facility] RSV RNA Not Detected Not Detected [facility] Sputum 02/22/2025 8:52 AM CDT 02/22/2025 10:27 AM CDT Narrative [facility] - 02/22/2025 11:51 AM CDT The BioFire Pneumonia Panel is a multiplexed nucleic acid test capable of simultaneous detection and identification of multiple respiratory viruses and bacteria. This panel detects Adenovirus, coronaviruses (Coronavirus HKU1, Coronavirus NL63, Coronavirus 229E, and Coronavirus OC43), Influenza A, Influenza B, Human metapneumovirus, Parainfluenza (1-4), RSV, Rhinovirus/Enterovirus, Chlamydia pneumoniae, Mycoplasma pneumoniae, and Legionella pneumophila. Additional aerobic bacterial targets are reported with the accompanying culture results with the same accession number. Rhinovirus and Enterovirus are genetically similar and cannot be reliably differentiated with this method. Negative adenovirus results should be confirmed by an alternative methodology (i.e. standalone PCR) if the suspicion for adenovirus infection is high. The results of this test must be considered in the clinical context of the patient and should not be used as the sole basis for diagnosis, treatment, or other management decisions. Negative results in the setting of a respiratory illness may be due to infection with pathogens that are not detected by this test. Positive results do not rule out infection/co-infection with other organisms. The BioFire Pneumonia Panel is FDA cleared for lower respiratory tract specimens. The performance characteristics of this assay have been determined by [facility]. Current interpretive data was last revised on 2024. Hood Pacheco MD LAB MICROBIOLOGY - GENERAL ORDER MICHELLE Final Result [facility] Department [place] [address] * (ABNORMAL) Pneumonia PCR with aerobic culture and Gram stain Sputum (02/22/2025 8:52 AM CDT) Direct Specimen Exam Molecular Analysis: 10^6 copies/mL Streptococcus pneumoniae Correlation of molecular analysis with final culture results is recommended. Direct Specimen Exam Stain: Few polymorphonuclear leukocytes seen. Few squamous epithelial cells seen. Rare mixed bacterial janet seen on Gram stain. [facility] Report Final Report: Growth indicates upper respiratory janet. (.) [facility] Organism GROWTH INDICATES UPPER RESPIRATORY JANET. [facility] Sputum 02/22/2025 8:52 AM CDT 02/22/2025 9:52 AM CDT Narrative [facility] - 02/24/2025 10:18 AM CDT When rapid molecular testing results are reported, testing completed using the [employer] FilmArray Pneumonia Panel. This molecular assay detects: Acinetobacter calcoaceticus-baumannii complex, Enterobacter cloacae complex, Escherichia coli, Haemophilus influenzae, Enterobacter (Klebsiella) aerogenes, Klebsiella oxytoca, Klebsiella pneumoniae group, Moraxella catarrhalis, Proteus spp., Pseudomonas aeruginosa, Serratia marcescens, Staphylococcus aureus, Streptococcus agalactiae, Streptococcus pneumoniae, and Streptococcus pyogenes. These bacteria are detected and reported semi-quantitatively with bins representing approximately 10^4, 10^5, 10^6, or greater than or equal to 10^7 genomic copies of bacterial nucleic acid per mL (copies/mL) of specimen. These quantities are reported to aid in estimating the relative abundance of organism(s) detected within the specimen and to correlate these results with culture results. For Staphylococcus aureus, mecA/C and MREJ genes are evaluated to predict methicillin resistance or susceptibility. For Gram-negative bacteria, the beta-lactamases CTX-M, IMP, KPC, NDM, VIM and OXA-48-like are evaluated and reported if detected. For Gram-negative organisms, the absence of detection of resistance markers does not exclude resistance. Correlation with final culture results and susceptibility testing is recommended. The FilmArray Pneumonia Panel is cleared by the Food and Drug Administration and its performance characteristics have been confirmed by the [facility]. The performance of the FilmArray Pneumonia Panel has not been established for monitoring treatment of infection and bacterial nucleic acids may persist independent of organism viability. Hood Pacheco MD LAB MICROBIOLOGY - GENERAL ORDER MICHELLE Final Result Performing Organization Address [facility] Co de Phone Number [facility] [place] [address] * C. difficile testing Stool (02/22/2025 8:52 AM CDT) [facility] Result Negative Negative Toxin Result Negative Negative [facility] C. diff result Negative, free toxin Negative, free toxin [facility] C. diff interp Negative for toxigenic Clostridioides (Clostridium) difficile. Analysis was performed using a glutamate dehydrogenase antigen detection assay combined with a C. difficile toxin detection assay. [facility] Stool 02/22/2025 8:52 AM CDT 02/22/2025 9:56 AM CDT Divine Ventura NP LAB MICROBIOLOGY - GENERAL ORD ERABLES Final Result Performing Organization Address [facility] de Phone Number [facility] Department [place] [address] * Norovirus PCR Stool (02/22/2025 8:52 AM CDT) [facility] Norovirus GI RNA Not Detected Not Detected [facility] Norovirus GII RNA Not Detected Not Detected [facility] Comment: Interpretive data: Testing performed at the [facility] using the [employer] Xpert Norovirus Assay. This assay uses nucleic acid amplification to detect RNA from norovirus. This test is cleared by the [facility] Food and Drug Administration for unformed stool specimens. The performance characteristics for unformed stool specimens have been verified by the performing laboratory. The performance characteristics of rectal swab specimens have also been validated and verified by the performing laboratory. Positive Xpert Norovirus results do not rule out other causes of infectious diarrhea. Assay interference may be observed in the presence of Barium sulfate and Benzalkonium chloride. Mutations or polymorphisms in primer or probe binding regions may affect detection of new or unknown norovirus variants resulting in a false negative result. Results from the Xpert Norovirus Assay should be interpreted in conjunction with other laboratory and clinical data available to the clinician. Current interpretive data was last revised on 2024. Stool 02/22/2025 8:52 AM CDT 02/22/2025 1:20 PM CDT Divine Ventura NP LAB MICROBIOLOGY - GENERAL ORD ERABLES Final Result Performing Organization Address [facility] Co de Phone Number [facility] Department [place] [employer] [place] [address] [facility] * Infection Prevention VRE Culture Stool (02/22/2025 8:47 AM CDT) Report Final Report: Negative Stool 02/22/2025 8:47 AM CDT 02/22/2025 12:33 PM CDT Narrative [facility] - 02/24/2025 3:34 PM CDT Surveillance culture for Infection Prevention purposes only; results indicate colonization, not infection requiring treatment. Testing performed by [facility] ([phone]). Edi Olvera MD LAB MICROBIOLOGY - GENERA L ORDERABLES Final Result [facility] [place] [address] * POCT glucose (02/22/2025 8:15 AM CDT) Glucose, POC 126 70 - 199 mg/dL Blood 02/22/2025 8:15 AM CDT 02/22/2025 8:15 AM CDT us Edi Olvera MD LAB POCT ORDERABLES - DEV ICE Final Result [facility] [place] [address] * Lactate (02/22/2025 6:21 AM CDT) Lactate 1.6 0.7 - 2.0 mmol/L Blood 02/22/2025 6:21 AM CDT 02/22/2025 6:45 AM CDT us Hood Pacheco MD LAB BLOOD ORDERABLES Final Resul t Performing Organization Address [facility] Co de Phone Number [facility] [place] [address] * (ABNORMAL) eGFR (02/22/2025 6:21 AM CDT) eGFR 56(L) >=60 mL/min/1. 73 m2 Comment: Interpretive Data Reference Interval Normal >/= 90 mL/min/1.73m2 Mildly decreased* 60 - 89 mL/min/1.73m2 Mildly to moderately decreased 45 - 59 mL/min/1.73m2 Moderately to severely decreased 30 - 44 mL/min/1.73m2 Severely decreased 15 - 29 mL/min/1.73m2 Kidney Failure < 15 mL/min/1.73m2 *Relative to young adult level Estimated glomerular filtration rate is determined by the 2020 CKD-EPI equation recommended by the National Kidney Foundation (A Unifying Approach to GFR Estimation: Recommendations of the NKF-ASK Task Force on Reassessing the Inclusion of Race in Diagnosing Kidney Disease, JASN 2020). The CKD-EPI equation should not be used for patients with unstable renal function and has not been validated in children and those over 70. Current interpretive data was last reviewed 2021. Blood 02/22/2025 6:21 AM CDT 02/22/2025 7:08 AM CDT Hood Pacheco MD LAB BLOOD ORDERABLES Final Resul t Performing Organization Address [facility] [place] [address] * HIV 1/2 Antibody plus p24 Antigen Blood (02/22/2025 6:21 AM CDT) Pathologist [facility] HIV 1/2 ab + p24 ag Nonreactive Nonreactive Comment:Nonreactive for HIV- 1 antigen and HIV-1/HIV-2 antibodies. No laboratory evidence of HIV infection. If acute HIV infection is suspected, consider testing for HIV-1 RNA. Current interpretive data was last revised on 22. Blood 02/22/2025 6:21 AM CDT 02/22/2025 6:46 AM CDT Hood Pacheco MD LAB MICROBIOLOGY - GENERAL ORDER MICHELLE Final Result Performing Organization Address [facility] [place] [address] * Hepatitis C antibody Blood (02/22/2025 6:21 AM CDT) Pathologist [facility] Hep C Ab Nonreactive Nonreactive Comment:Antibodies to HCV no t detected. Does NOT exclude the possibility of recent exposure to HCV. Current interpretive data was last revised on 22 Blood 02/22/2025 6:21 AM CDT 02/22/2025 7:57 AM CDT Hood Pacheco MD LAB MICROBIOLOGY - GENERAL ORDER MICHELLE Final Result Performing Organization Address City/[facility] [place] [address] * RPR Blood (02/22/2025 6:21 AM CDT) Pathologist [facility] RPR Nonreactive Nonreactive Blood 02/22/2025 6:21 AM CDT 02/22/2025 6:46 AM CDT Hood Pacheco MD LAB MICROBIOLOGY - GENERAL ORDER MICHELLE Final Result Performing Organization Address City/State/[facility] Co de Phone Number [facility] [place] [address] * Hepatitis B Surface Antigen Blood (02/22/2025 6:21 AM CDT) [facility] HepBsAg Nonreactive Nonreactive Blood 02/22/2025 6:21 AM CDT 02/22/2025 7:57 AM CDT Hood Pacheco MD LAB MICROBIOLOGY - GENERAL ORDER MICHELLE Final Result Performing Organization Address [facility] de Phone Number [facility] [place] [address] * (ABNORMAL) CBC without differential (02/22/2025 6:21 AM CDT) [facility] WBC 11.02(H) 3.80 - 9.90 K/cumm Hgb 10.1(L) 13.0 - 17.5 g/dL [facility] Hct 30.2(L) 38.9 - 50.3 % [facility] Plt 82(L) 150 - 400 K/cumm [facility] MPV 11.9 9.1 - 12.3 fL [facility] RBC 3.23(L) 4.30 - 5.80 M/cumm [facility] MCV 93.5 81.3 - 96.4 fL [facility] MCH 31.3 27.1 - 33.3 pg [facility] MCHC 33.4 32.3 - 35.7 g/dL [facility] RDW CV 15.5(H) 11.1 - 14.9 % [facility] RDW SD 52.8(H) 35.7 - 48.1 fL [facility] NRBC abs 0.02(H) 0.00 - 0.01 K/cumm [facility] Blood 02/22/2025 6:21 AM CDT 02/22/2025 7:03 AM CDT us Hood Pacheco MD LAB BLOOD ORDERABLES Final Resul t Performing Organization Address [facility] de Phone Number [facility] [place] [address] * (ABNORMAL) Blood gas, venous (02/22/2025 6:21 AM CDT) pH, Venous 7.35 7.32 - 7.43 PCO2, Venous 51(H) 40 - 50 mmHg [facility] PO2, Venous 39 mmHg [facility] Comment: Interpretive Data No Reference Range Established Current Interpretive Data was last revised on 2018. HCO3 Venous, Calculated 29 20 - 30 mmol/L [facility] BE, venous 2 mmol/L [facility] Comment: Interpretive Data No Reference Range Established Current Interpretive Data was last revised on 2018. Blood 02/22/2025 6:21 AM CDT 02/22/2025 6:40 AM CDT us Edi Olvera MD LAB BLOOD ORDERABLES Asya l Result Performing Organization Address [facility] de Phone Number [facility] Department [place] [address] * (ABNORMAL) Comprehensive metabolic panel (02/22/2025 6:21 AM CDT) Sodium 131(L) 135 - 145 mmol/L Potassium, pl 4.4 3.3 - 4.9 mmol/L [facility] Chloride 98 97 - 110 mmol/L [facility] CO2 30 22 - 32 mmol/L [facility] Anion gap 3 2 - 15 mmol/L [facility] BUN 72(H) 6 - 25 mg/dL [facility] Creatinine 1.35(H) 0.80 - 1.30 mg/dL [facility] Glucose 113 70 - 199 mg/dL [facility] Comment: Interpretive Data Fasting glucose >/= 126 mg/dl is diagnostic for diabetes. Fasting is defined as no caloric intake for at least 8 hours. Fasting glucose between 100 mg/dl to 125 mg/dl is diagnostic of prediabetes. In a patient with classic symptoms of hyperglycemia or hyperglycemic crisis, a random glucose >/= 200 mg/dl is diagnostic for diabetes. In the absence of unequivocal hyperglycemia, results should be confirmed by repeat testing. The classification and Diagnosis of Diabetes Diabetes Care 2021; 46: S19-S40. Current interpretive data was last revised 2022. Calcium 8.0(L) 8.5 - 10.3 mg/dL [facility] Bilirubin, total 0.6 0.1 - 1.2 mg/dL [facility] Protein, pl 5.8(L) 6.5 - 8.5 g/dL [facility] Albumin 2.4(L) 3.5 - 5.0 g/dL [facility] Alk phos 57 40 - 130 Units/L [facility] ALT 53 7 - 55 Units/L [facility] AST 57(H) 10 - 50 Units/L [facility] Blood 02/22/2025 6:21 AM CDT 02/22/2025 7:08 AM CDT Hood Pacheco MD LAB BLOOD ORDERABLES Final Resul t Performing Organization Address [facility]/ZIP Co de Phone Number [facility] Department [place] [address] * (ABNORMAL) Lactate (02/22/2025 12:55 AM CDT) Lactate 2.6(H) 0.7 - 2.0 mmol/L Blood 02/22/2025 12:5 5 AM CDT 02/22/2025 1:16 AM CDT Hood Pacheco MD LAB BLOOD ORDERABLES Final Resul t Performing Organization Address City/[facility]/ZIP Co de Phone Number [facility] Department [place] [address] * Oxyhemoglobin, central venous (02/21/2025 8:07 PM CDT) Pathologist [facility] Oxyhemoglobin, CV 77.9 % Comment: Interpretive Data No reference range established. Current interpretive data was last revised 2020. Blood 02/21/2025 8:07 PM CDT 02/21/2025 8:16 PM CDT Edi Olvera MD LAB BLOOD ORDERABLES Asya l Result [facility] Department [place] [address] * (ABNORMAL) Lactate (02/21/2025 8:07 PM CDT) [facility] Lactate 2.5(H) 0.7 - 2.0 mmol/L Blood 02/21/2025 8:07 PM CDT 02/21/2025 8:18 PM CDT Edi Olvera MD LAB BLOOD ORDERABLES Asya l Result [facility] Department [place] [address] * (ABNORMAL) eGFR (02/21/2025 8:07 PM CDT) [facility] eGFR 53(L) >=60 mL/min/1. 73 m2 Comment: Interpretive Data Reference Interval Normal >/= 90 mL/min/1.73m2 Mildly decreased* 60 - 89 mL/min/1.73m2 Mildly to moderately decreased 45 - 59 mL/min/1.73m2 Moderately to severely decreased 30 - 44 mL/min/1.73m2 Severely decreased 15 - 29 mL/min/1.73m2 Kidney Failure < 15 mL/min/1.73m2 *Relative to young adult level Estimated glomerular filtration rate is determined by the 2020 CKD-EPI equation recommended by the National Kidney Foundation (A Unifying Approach to GFR Estimation: Recommendations of the NKF-ASK Task Force on Reassessing the Inclusion of Race in Diagnosing Kidney Disease, JASN 2020). The CKD-EPI equation should not be used for patients with unstable renal function and has not been validated in children and those over 70. Current interpretive data was last reviewed 2021. Blood 02/21/2025 8:07 PM CDT 02/21/2025 8:18 PM CDT us Hood Pacheco MD LAB BLOOD ORDERABLES Final Resul t [facility] Department [place] [address] * (ABNORMAL) CBC without differential (02/21/2025 8:07 PM CDT) WBC 14.26(H) 3.80 - 9.90 K/cumm Hgb 11.1(L) 13.0 - 17.5 g/dL [facility] Hct 33.3(L) 38.9 - 50.3 % [facility] Plt 107(L) 150 - 400 K/cumm [facility] MPV 12.6(H) 9.1 - 12.3 fL [facility] RBC 3.51(L) 4.30 - 5.80 M/cumm [facility] MCV 94.9 81.3 - 96.4 fL [facility] MCH 31.6 27.1 - 33.3 pg [facility] MCHC 33.3 32.3 - 35.7 g/dL [facility] RDW CV 15.6(H) 11.1 - 14.9 % [facility] RDW SD 53.3(H) 35.7 - 48.1 fL [facility] NRBC abs 0.02(H) 0.00 - 0.01 K/cumm [facility] Blood 02/21/2025 8:07 PM CDT 02/21/2025 8:18 PM CDT us Hood Pacheco MD LAB BLOOD ORDERABLES Final Resul t [facility] Department [place] [address] * (ABNORMAL) Comprehensive metabolic panel (02/21/2025 8:07 PM CDT) Sodium 127(L) 135 - 145 mmol/L Potassium, pl 4.6 3.3 - 4.9 mmol/L [facility] Chloride 95(L) 97 - 110 mmol/L [facility] CO2 27 22 - 32 mmol/L [facility] Anion gap 5 2 - 15 mmol/L [facility] BUN 66(H) 6 - 25 mg/dL [facility] Creatinine 1.41(H) 0.80 - 1.30 mg/dL [facility] Glucose 182 70 - 199 mg/dL [facility] Comment: Interpretive Data Fasting glucose >/= 126 mg/dl is diagnostic for diabetes. Fasting is defined as no caloric intake for at least 8 hours. Fasting glucose between 100 mg/dl to 125 mg/dl is diagnostic of prediabetes. In a patient with classic symptoms of hyperglycemia or hyperglycemic crisis, a random glucose >/= 200 mg/dl is diagnostic for diabetes. In the absence of unequivocal hyperglycemia, results should be confirmed by repeat testing. The classification and Diagnosis of Diabetes Diabetes Care 2021; 46: S19-S40. Current interpretive data was last revised 2022. Calcium 8.0(L) 8.5 - 10.3 mg/dL [facility] Bilirubin, total 0.8 0.1 - 1.2 mg/dL [facility] Protein, pl 6.3(L) 6.5 - 8.5 g/dL [facility] Albumin 2.6(L) 3.5 - 5.0 g/dL [facility] Alk phos 57 40 - 130 Units/L [facility] ALT 48 7 - 55 Units/L [facility] AST 54(H) 10 - 50 Units/L [facility] Blood 02/21/2025 8:07 PM CDT 02/21/2025 8:18 PM CDT Hood Pacheco MD LAB BLOOD ORDERABLES Final [facility]ul t [facility] [place] [address] * POCT glucose (02/21/2025 8:06 PM CDT) Glucose, POC 166 70 - 199 mg/dL Blood 02/21/2025 8:06 PM CDT 02/21/2025 8:06 PM CDT Edi Olvera MD LAB POCT ORDERABLES - DEV ICE Final Result Performing Organization Address [facility] Co de Phone Number [facility] [address] * Infection Prevention Roberto auris PCR, surveillance Axilla/Groin (02/21/2025 6:52 PM CDT) Roberto auris DNA Not Detected Not Detected [facility] Comment: Interpretive Data Testing performed by [facility] Infectious Disease Laboratory using the [employer] 6800 Roberto auris assay. This assay detects DNA from Roberto auris using Real-Time PCR. This assay is laboratory developed and is not cleared by the [place] Food and Drug Administration. The performance characteristics have been verified by the [facility] Molecular Infectious Disease Laboratory. Axilla/Groin 02/21/2025 6:52 PM CDT 02/21/2025 7:08 PM CDT Espinoza Salazar MD LAB MICROBIOLOGY - GENERAL ORDER MICHELLE Final Result Performing Organization Address City/[facility]/ZIP Co de Phone Number [facility] [place] [address] [facility] * POCT glucose (02/21/2025 3:34 PM CDT) Glucose, POC 133 70 - 199 mg/dL Blood 02/21/2025 3:34 PM CDT 02/21/2025 3:34 PM CDT Eid Olvera MD LAB POCT ORDERABLES - DEV ICE Final Result Performing Organization Address [facility] de Phone Number [facility] [place] [employer] [place] [address] * Oxyhemoglobin, central venous (02/21/2025 1:09 PM CDT) Oxyhemoglobin, CV 80.5 % Comment: Interpretive Data No reference range established. Current interpretive data was last revised 2020. Blood 02/21/2025 1:09 PM CDT 02/21/2025 1:30 PM CDT Hood Pacheco MD LAB BLOOD ORDERABLES Final Resul t Performing Organization Address [facility] de Phone Number [facility] [place] [employer] [place] [address] * (ABNORMAL) Lactate (02/21/2025 1:09 PM CDT) Lactate 2.3(H) 0.7 - 2.0 mmol/L Blood 02/21/2025 1:09 PM CDT 02/21/2025 1:37 PM CDT Hood Pacheco MD LAB BLOOD ORDERABLES Final Resul t Performing Organization Address [facility] de Phone Number [facility] [place] [employer] [place] [address] * (ABNORMAL) Blood gas, venous (02/21/2025 1:09 PM CDT) pH, Venous 7.26(L) 7.32 - 7.43 PCO2, Venous 65(H) 40 - 50 mmHg [facility] PO2, Venous 55 mmHg [facility] Comment: Interpretive Data No Reference Range Established Current Interpretive Data was last revised on 2018. HCO3 Venous, Calculated 30 20 - 30 mmol/L [facility] BE, venous 1 mmol/L [facility] Comment: Interpretive Data No Reference Range Established Current Interpretive Data was last revised on 2018. Blood 02/21/2025 1:09 PM CDT 02/21/2025 1:30 PM CDT us Hood Pacheco MD LAB BLOOD ORDERABLES Final Resul t [facility] One [facility] Department [place] [address] * CT Chest PE (CTA) Abdomen Pelvis W Contrast (02/21/2025 12:37 PM CDT) Anatomical Region Laterality Modality Body N/A Computed Tomogra phy 02/21/2025 1:10 PM CDT Impressions 02/21/2025 1:10 PM CDT 1. No pulmonary embolus or CT evidence of mesenteric ischemia 2. Complete collapse of the left lower lobe with additional areas of mucous plugging in the left upper lobe and small left pleural effusion 3. Morphologic features of cirrhosis with sequela of portal hypertension 4. Infrarenal abdominal aortic aneurysm measuring 4.0 cm diameter Electronically signed by: Mario Pacheco MD, PHD Narrative 02/21/2025 1:10 PM CDT EXAMINATION: CT CHEST PE (CTA) ABDOMEN PELVIS W CONTRAST HISTORY: Concern for pulmonary embolus and mesenteric ischemia TECHNIQUE: Computed tomographic images were acquired using a chest angiographic protocol optimized for pulmonary embolism. Computed tomographic examination of the abdomen and pelvis with intravenous contrast was performed using a standard protocol. Contrast enhanced transaxial images were obtained following the intravenous administration of 93 ml of nonionic contrast. Multiplanar reformatted images and three-dimensional images were obtained on the 3-D workstation and sent to the PACS archival system. COMPARISON: CT chest 11/15/2024 FINDINGS: No pulmonary embolus. Moderate atherosclerotic disease in the thoracic aorta. Right internal jugular central venous catheter tip terminates in the superior vena cava. Changes of median sternotomy for coronary artery bypass grafting with unchanged nonunion of the sternotomy. Mild cardiomegaly with no pericardial effusion. There is complete collapse of the left lower lobe with additional areas of mucous plugging noted throughout the left upper lobe and mild right basilar atelectasis. Small left pleural effusion with no right-sided effusion. No pneumothorax. No thoracic lymphadenopathy. Nodular liver with periportal space widening and enlargement of hepatic cirrhosis. Gallbladder is mildly distended with a dependent stone is no wall thickening to suggest cholecystitis. The pancreas and adrenal glands are normal. Small hypoenhancing lesions in the spleen likely represents a cyst or lymphangioma. Kidneys enhance symmetrically with no hydronephrosis. Small cysts and additional too small to characterize hypoattenuating lesions are present in both kidneys. Urinary bladder is decompressed with a Pedraza catheter. Prostate gland is mildly enlarged. Colonic diverticulosis is noted without evidence of diverticulitis. Mild wall thickening the ascending colon compatible with portal colopathy. The appendix is normal. Small bowel is decompressed. Stomach is distended with fluid. There is mild mesenteric edema and trace ascites. No free air. Moderate atherosclerotic disease in the abdominal aorta with an infrarenal abdominal aortic aneurysm measuring 4.0 cm in diameter. Tiny fat-containing umbilical hernia. Avascular necrosis noted in the left femoral head without articular surface collapse. Severe right shoulder osteoarthritis. No suspicious osseous lesion. Procedure Note Mario Pacheco MD PhD - 02/21/2025 EXAMINATION: CT CHEST PE (CTA) ABDOMEN PELVIS W CONTRAST HISTORY: Concern for pulmonary embolus and mesenteric ischemia TECHNIQUE: Computed tomographic images were acquired using a chest angiographic protocol optimized for pulmonary embolism. Computed tomographic examination of the abdomen and pelvis with intravenous contrast was performed using a standard protocol. Contrast enhanced transaxial images were obtained following the intravenous administration of 93 ml of nonionic contrast. Multiplanar reformatted images and three-dimensional images were obtained on the 3-D workstation and sent to the PACS archival system. COMPARISON: CT chest 11/15/2024 FINDINGS: No pulmonary embolus. Moderate atherosclerotic disease in the thoracic aorta. Right internal jugular central venous catheter tip terminates in the superior vena cava. Changes of median sternotomy for coronary artery bypass grafting with unchanged nonunion of the sternotomy. Mild cardiomegaly with no pericardial effusion. There is complete collapse of the left lower lobe with additional areas of mucous plugging noted throughout the left upper lobe and mild right basilar atelectasis. Small left pleural effusion with no right-sided effusion. No pneumothorax. No thoracic lymphadenopathy. Nodular liver with periportal space widening and enlargement of hepatic cirrhosis. Gallbladder is mildly distended with a dependent stone is no wall thickening to suggest cholecystitis. The pancreas and adrenal glands are normal. Small hypoenhancing lesions in the spleen likely represents a cyst or lymphangioma. Kidneys enhance symmetrically with no hydronephrosis. Small cysts and additional too small to characterize hypoattenuating lesions are present in both kidneys. Urinary bladder is decompressed with a Pedraza catheter. Prostate gland is mildly enlarged. Colonic diverticulosis is noted without evidence of diverticulitis. Mild wall thickening the ascending colon compatible with portal colopathy. The appendix is normal. Small bowel is decompressed. Stomach is distended with fluid. There is mild mesenteric edema and trace ascites. No free air. Moderate atherosclerotic disease in the abdominal aorta with an infrarenal abdominal aortic aneurysm measuring 4.0 cm in diameter. Tiny fat-containing umbilical hernia. Avascular necrosis noted in the left femoral head without articular surface collapse. Severe right shoulder osteoarthritis. No suspicious osseous lesion. IMPRESSION: 1. No pulmonary embolus or CT evidence of mesenteric ischemia 2. Complete collapse of the left lower lobe with additional areas of mucous plugging in the left upper lobe and small left pleural effusion 3. Morphologic features of cirrhosis with sequela of portal hypertension 4. Infrarenal abdominal aortic aneurysm measuring 4.0 cm diameter Electronically signed by: Mario Pacheco MD, PHD Hood Pacheco MD IMG CT PROCEDURES Final Result * POCT glucose (02/21/2025 11:38 AM CDT) Glucose, POC 111 70 - 199 mg/dL Blood 02/21/2025 11:3 8 AM CDT 02/21/2025 11:38 AM CDT Hood Pacheco MD LAB POCT ORDERABLES - DEVICE Fin al Result 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 Contrast: Contrast Enhancement was Employed: After initial imaging due to sub- optimal quality related to co-morbidity defined by patient's body habitus and due to suboptimal image quality with inadequate visualization of at least 2 of 16 LV wall segments in any view after initial imaging. Perflutren contrast was administered using the volume necessary to obtain adequate images. 1.1 ml Optison Administered, (1.9 ml wasted). Technically difficult study due to: Body habitus. Poor acoustic windows. Patient unable to cooperate (supine on CPAP). Limited visualization of some cardiac structures precludes the ability to obtain complete measurements - limited subcostal, no suprasternal views avaialble. - INDICATIONS: HFrEF, p/w acute shortness of breath, elevated BNP - CONCLUSIONS: 1. Moderately dilated left ventricle based on volume index. Normal LV wall thickness. Mildly depressed left ventricular systolic function. The Ejection Fraction (Conner's) is measured at 50 %. Grade I diastolic dysfunction (normal LA pressure). Unable to assess global longitudinal strain due to image quality. 2. Resting Segmental Wall Motion Analysis: Total wall motion score is 1.12. There is hypokinesis of the apical cap. There is hypokinesis of the apical septal wall. The remaining left ventricular segments demonstrate normal wall motion. 3. Mildly dilated left atrium. 4. Mild aortic valve regurgitation. COMPARISONS: No previous study available for comparison. ATTESTATION: I have personally reviewed and interpreted this study without fellow or resident. - DISCLAIMER: The study images and the final report will be retained in the patient chart by the Echo Laboratory for the legally required time period. This chart constitutes the legal record of any testing performed. FINDINGS: Study Quality: Adequate. Left Ventricle: Normal left ventricular cavity size based on 2D measurements. Moderately dilated left ventricle based on volume index. Normal LV wall thickness. Mildly depressed left ventricular systolic function. The Ejection Fraction (Conner's) is measured at 50 %. Grade I diastolic dysfunction (normal LA pressure). Unable to assess global longitudinal strain due to image quality. Resting Segmental Wall Motion Analysis: Total wall motion score is 1.12. There is hypokinesis of the apical cap. There is hypokinesis of the apical septal wall. The remaining left ventricular segments demonstrate normal wall motion. Right Ventricle: Normal right ventricular size. Normal right ventricular systolic function. Right ventricular strain inadequate for accurate interpretation. Left Atrium: Mildly dilated left atrium. Right Atrium: The right atrium is normal in size. Mitral Valve: Normal mitral valve structure. No mitral regurgitation. No stenosis present. Aortic Valve: Normal trileaflet aortic valve. Mild aortic valve regurgitation. No aortic valve stenosis. Tricuspid Valve: Normal tricuspid valve structure. No tricuspid regurgitation. No tricuspid valve stenosis. Pulmonic Valve: Normal pulmonic valve structure. No pulmonic regurgitation. No pulmonic valve stenosis present. Pericardium: Normal pericardium without pericardial effusion. Aorta: Normal aortic root size when indexed. PASP: Normal estimated pulmonary artery systolic pressure. Rhythm: Normal Sinus rhythm was seen during the study. MEASUREMENTS: 2D/MM Value Range Doppler Value Range LVIDd 2D 6.14 cm [ 4.20 - 5.80 ] AV VTI 31.8 cm LVIDs 2D 3.85 cm [ 2.50 - 4.00 ] LVOT VTI 21.6 cm IVSd 2D 1.06 cm [ 0.60 - 1.00 ] LVOT/AV VTI 0.68 - Dimensionless index (DVI) LVPWd 2D 1.07 cm [ 0.60 - 1.00 ] AI Peak Jhon 3.8 m/s LV Thickness Ratio 1.0 AI PHT 542.44 msec RWT 0.35 MV E Peak Jhon 0.9 m/s [ 0.6 - 1.3 ] EDV Mod BP 231.00 ml [ 62.00 - 150.00 ] MV A Peak Jhon 0.7 m/s [ 1.0 - 1.2 ] LV EDV Index 93.52 ml/m2 MV E/A 1.2 ratio [ 0.8 - 1.5 ] ESV Mod BP 115.00 ml [ 21.00 - 61.00 ] MV Decel Time 121.58 msec [ 104.00 - 258.00 ] EF Mod BP 50 % [ 52 - 72 ] Med E` Jhon 6.4 cm/sec [ 8.0 - 25.0 ] LA Volume BP 92.78 ml Lat E` Jhon 10.7 cm/sec [ 10.0 - 25.0 ] LA Volume Index 37.56 ml/m2 [ 16.00 - 34.00 ] Average E/E` 10.53 RV Base Dimen 2D 3.5 cm [ 2.5 - 4.2 ] RV S` 9.69 cm/sec TAPSE 1.95 cm [ 1.71 - 5.00 ] RA Volume 70.39 ml RA Volume Index 28.50 ml/m2 AoR Diam 2D 3.98 cm [ 3.10 - 3.70 ] Ao Root Index 1.61 cm/m2 [ 1.00 - 2.00 ] Asc Ao Diam 2D 3.42 cm Asc Ao Index 1.38 cm/m2 Electronically Signed By: Ramya Morris MD 02/21/2025 1:02:41 PM CDT Wall Motion Analysis - Resting Procedure Note De Ramya Lake MD - 02/21/2025 [facility] Cardiac [place] [address] Transthoracic Echocardiographic Report Patient Name: JUD MACE L : 1955 (70y ) Gender: M Study Date: 02/21/2025 09:10:55 AM Ht(Inch): 73 Wt(Lb): 261.02 BSA: 2.47 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 Contrast: Contrast Enhancement was Employed: After initial imaging due tosub- optimal quality related to co-morbidity defined by patient's body habitus and dueto suboptimal image quality with inadequate visualization of at least 2 of 16 LV wallsegments in any view after initial imaging. Perflutren contrast was administered using thevolume necessary to obtain adequate images. 1.1 ml Optison Administered, (1.9 mlwasted). Technically difficult study due to: Body habitus. Poor acoustic windows.Patient unable to cooperate (supine on CPAP). Limited visualization of some cardiacstructures precludes the ability to obtain complete measurements - limited subcostal, nosuprasternal views avaialble. - INDICATIONS: HFrEF, p/w acute shortness of breath, elevated BNP - CONCLUSIONS: 1. Moderately dilated left ventricle based on volume index. Normal LV wallthickness. Mildly depressed left ventricular systolic function. The Ejection Fraction(Conner's) is measured at 50 %. Grade I diastolic dysfunction (normal LA pressure).Unable to assess global longitudinal strain due to image quality. 2. Resting Segmental Wall Motion Analysis: Total wall motion score is1.12. There is hypokinesis of the apical cap. There is hypokinesis of the apical septalwall. The remaining left ventricular segments demonstrate normal wall motion. 3. Mildly dilated left atrium. 4. Mild aortic valve regurgitation. COMPARISONS: No previous study available for comparison. ATTESTATION: I have personally reviewed and interpreted this study without fellow orresident. - DISCLAIMER: The study images and the final report will be retained in the patientchart by the Echo Laboratory for the legally required time period. This chart constitutesthe legal record of any testing performed. FINDINGS: Study Quality: Adequate. Left Ventricle: Normal left ventricular cavity size based on 2Dmeasurements. Moderately dilated left ventricle based on volume index. Normal LV wall thickness.Mildly depressed left ventricular systolic function. The Ejection Fraction (Conner's) ismeasured at 50 %. Grade I diastolic dysfunction (normal LA pressure). Unable to assessglobal longitudinal strain due to image quality. Resting Segmental Wall Motion Analysis: Total wall motion score is 1.12.There is hypokinesis of the apical cap. There is hypokinesis of the apical septalwall. The remaining left ventricular segments demonstrate normal wall motion. Right Ventricle: Normal right ventricular size. Normal right ventricularsystolic function. Right ventricular strain inadequate for accurateinterpretation. Left Atrium: Mildly dilated left atrium. Right Atrium: The right atrium is normal in size. Mitral Valve: Normal mitral valve structure. No mitral regurgitation. Nostenosis present. Aortic Valve: Normal trileaflet aortic valve. Mild aortic valveregurgitation. No aortic valve stenosis. Tricuspid Valve: Normal tricuspid valve structure. No tricuspidregurgitation. No tricuspid valve stenosis. Pulmonic Valve: Normal pulmonic valve structure. No pulmonicregurgitation. No pulmonic valve stenosis present. Pericardium: Normal pericardium without pericardial effusion. Aorta: Normal aortic root size when indexed. PASP: Normal estimated pulmonary artery systolic pressure. Rhythm: Normal Sinus rhythm was seen during the study. MEASUREMENTS: 2D/MM Value Range DopplerValue Range LVIDd 2D 6.14 cm [ 4.20 - 5.80 ] AV VTI31.8 cm LVIDs 2D 3.85 cm [ 2.50 - 4.00 ] LVOT VTI21.6 cm IVSd 2D 1.06 cm [ 0.60 - 1.00 ] LVOT/AV VTI0.68 - Dimensionless index (DVI) LVPWd 2D 1.07 cm [ 0.60 - 1.00 ] AI Peak Vel3.8 m/s LV Thickness Ratio 1.0 AI WFQ864.44 msec RWT 0.35 MV E Peak Vel0.9 m/s [ 0.6 - 1.3 ] EDV Mod BP 231.00 ml [ 62.00 - 150.00 ] MV A Peak Vel0.7 m/s [ 1.0 - 1.2 ] LV EDV Index 93.52 ml/m2 MV E/A1.2 ratio [ 0.8 - 1.5 ] ESV Mod BP 115.00 ml [ 21.00 - 61.00 ] MV Decel Oytn046.58 msec [ 104.00 - 258.00 ] EF Mod BP 50 % [ 52 - 72 ] Med E` Vel6.4 cm/sec [ 8.0 - 25.0 ] LA Volume BP 92.78 ml Lat E` Vel10.7 cm/sec [ 10.0 - 25.0 ] LA Volume Index 37.56 ml/m2 [ 16.00 - 34.00 ] Average E/E`10.53 RV Base Dimen 2D 3.5 cm [ 2.5 - 4.2 ] RV S`9.69 cm/sec TAPSE 1.95 cm [ 1.71 - 5.00 ] RA Pdoerv51.39 ml RA Volume Index28.50 ml/m2 AoR Diam 2D 3.98 cm [ 3.10 - 3.70 ] Ao Root Index 1.61 cm/m2 [ 1.00 - 2.00 ] Asc Ao Diam 2D3.42 cm Asc Ao Index1.38 cm/m2 Electronically Signed By: Ramya Morris MD 02/21/2025 1:02:41 PM CDT Wall Motion Analysis - Resting us Divine Ventura AEROPLANE PILOT CV ECHO PROCEDURES Final Resul t * POCT glucose (02/21/2025 7:28 AM CDT) [facility] Glucose, POC 85 70 - 199 mg/dL Blood 02/21/2025 7:28 AM CDT 02/21/2025 7:28 AM CDT Hood Pacheco MD LAB POCT ORDERABLES - DEVICE Fin al Result Performing Organization Address [facility] Co de Phone Number [facility] Department [place] [address] * (ABNORMAL) Lactate (02/21/2025 5:06 AM CDT) [facility] Lactate 3.4(H) 0.7 - 2.0 mmol/L Blood 02/21/2025 5:06 AM CDT 02/21/2025 5:23 AM CDT us Gisela Camejo MD LAB BLOOD ORDERABLES Final Result Performing Organization Address City/[facility] Co de Phone Number [facility] Department [place] [address] * (ABNORMAL) eGFR (02/21/2025 5:06 AM CDT) [facility] eGFR 42(L) >=60 mL/min/1. 73 m2 Comment: Interpretive Data Reference Interval Normal >/= 90 mL/min/1.73m2 Mildly decreased* 60 - 89 mL/min/1.73m2 Mildly to moderately decreased 45 - 59 mL/min/1.73m2 Moderately to severely decreased 30 - 44 mL/min/1.73m2 Severely decreased 15 - 29 mL/min/1.73m2 Kidney Failure < 15 mL/min/1.73m2 *Relative to young adult level Estimated glomerular filtration rate is determined by the 2020 CKD-EPI equation recommended by the National Kid[employer] (A Unifying Approach to GFR Estimation: Recommendations of the NKF-ASK Task Force on Reassessing the Inclusion of Race in Diagnosing Kidney Disease, JASN 2020). The CKD-EPI equation should not be used for patients with unstable renal function and has not been validated in children and those over 70. Current interpretive data was last reviewed 2021. Blood 02/21/2025 5:06 AM CDT 02/21/2025 5:34 AM CDT us Hood Pacheco MD LAB BLOOD ORDERABLES Final Resul t [facility] One [facility] Department [place] [address] * (ABNORMAL) POC Blood Gas and Chemistries, Arterial - (02/21/2025 5:06 AM CDT) pH, Art POC 7.34(L) 7.35 - 7.45 pCO2, Art POC 49(H) 35 - 45 mmHg [facility] pO2, Art POC 78(L) 83 - 108 mmHg [facility] Na, POC 129(L) 135 - 145 mmol/L [facility] K POC 3.8 3.3 - 4.9 mmol/L [facility] Comment: Interpretive Data Not all point of care methods assess for hemolysis. Confirm with instrument and retest K+ if not consistent with clinical signs and symptoms. Current Interpretive Data was last revised on 2024. Cl, POC 97 97 - 110 mmol/L [facility] Ionized Ca, POC 4.90 4.50 - 5.10 mg/dL [facility] Glucose, POC 116 70 - 199 mg/dL [facility] Lactate, POC 3.0(H) 0.7 - 2.0 mmol/L [facility] O2Hb, Art POC 94.4 90.0 - 95.0 % [facility] COHb, Art POC 2.2 0.0 - 2.9 % [facility] MetHgb, Art POC 0.7 0.0 - 1.9 % [facility] SO2 (annalisa) arterial 97(H) 90 - 95 % [facility] Base excess, POC 0.1 mmol/L [facility] HCO3, Art POC 26 20 - 30 mmol/L [facility] Hct, POC 35.0(L) 41.4 - 51.6 % [facility] Total Hb, POC 11.5(L) 13.8 - 17.2 g/dL [facility] Blood 02/21/2025 5:06 AM CDT 02/21/2025 5:06 AM CDT Hood Pacheco MD LAB POCT ORDERABLES - DEVICE Fin al Result Performing Organization Address [facility] Co de Phone Number [facility] Department [place] [address] * Urea nitrogen, urine, random (02/21/2025 5:06 AM CDT) Urea nitrogen, ur 656 mg/dL Comment: Interpretive Data No reference range established. Current interpretive data was last revised 2019. Urine 02/21/2025 5:06 AM CDT 02/21/2025 5:23 AM CDT Ivet Barakat MD LAB URINE ORDERABLES Final Result [facility] [place] [address] * Sodium, urine, random (02/21/2025 5:06 AM CDT) Sodium, ur <20 mmol/L Comment: Interpretive Data No reference range established. Current interpretive data was last revised 2019. Urine (Urine, Clean Catch) 02/21/2025 5:06 AM CDT 02/21/2025 5:23 AM CDT Ivet Barakat MD LAB URINE ORDERABLES Final Result Performing Organization Address [facility] Co de Phone Number [facility] [place] [address] * Creatinine, urine, random (02/21/2025 5:06 AM CDT) [facility] Creatinine Ur 93.5 mg/dL Comment: Interpretive Data No reference range established. Current interpretive data was last revised 2019. Urine 02/21/2025 5:06 AM CDT 02/21/2025 5:23 AM CDT Ivet Barakat MD LAB URINE ORDERABLES Final Result Performing Organization Address [facility] de Phone Number [facility] Department [place] [address] * (ABNORMAL) CBC without differential (02/21/2025 5:06 AM CDT) [facility] WBC 9.6 3.8 - 9.9 K/cumm Hgb 11.4(L) 13.0 - 17.5 g/dL [facility] Hct 34.4(L) 38.9 - 50.3 % [facility] Plt 96(L) 150 - 400 K/cumm [facility] MPV 12.6(H) 9.1 - 12.3 fL [facility] RBC 3.67(L) 4.30 - 5.80 M/cumm [facility] MCV 93.7 81.3 - 96.4 fL [facility] MCH 31.1 27.1 - 33.3 pg [facility] MCHC 33.1 32.3 - 35.7 g/dL [facility] RDW CV 15.3(H) 11.1 - 14.9 % [facility] RDW SD 52.7(H) 35.7 - 48.1 fL [facility] NRBC abs 0.02(H) 0.00 - 0.01 K/cumm [facility] Blood 02/21/2025 5:06 AM CDT 02/21/2025 5:23 AM CDT Hood Pacheco MD LAB BLOOD ORDERABLES Final Resul t Performing Organization Address City/[facility] Co de Phone Number [facility] [place] [address] * (ABNORMAL) Phosphorus (02/21/2025 5:06 AM CDT) Phosphorus, pl 4.7(H) 2.3 - 4.5 mg/dL Blood 02/21/2025 5:06 AM CDT 02/21/2025 5:26 AM CDT Hood Pacheco MD LAB BLOOD ORDERABLES Final Resul t Performing Organization Address [facility] Co de Phone Number [facility] [place] [address] * Magnesium (02/21/2025 5:06 AM CDT) Magnesium 2.3 1.4 - 2.5 mg/dL Blood 02/21/2025 5:06 AM CDT 02/21/2025 5:26 AM CDT Hood Pacheco MD LAB BLOOD ORDERABLES Final Resul t Performing Organization Address City/[facility] Co de Phone Number [facility] [place] [employer] [place] [address] * Creatine kinase (CK), total (02/21/2025 5:06 AM CDT) CK 164 40 - 300 Units/L Blood 02/21/2025 5:06 AM CDT 02/21/2025 5:26 AM CDT us Hood Pacheco MD LAB BLOOD ORDERABLES Final Resul t [facility] Department [place] [address] * (ABNORMAL) Comprehensive metabolic panel (02/21/2025 5:06 AM CDT) Sodium 129(L) 135 - 145 mmol/L Potassium, pl 4.0 3.3 - 4.9 mmol/L [facility] Chloride 92(L) 97 - 110 mmol/L [facility] CO2 25 22 - 32 mmol/L [facility] Anion gap 12 2 - 15 mmol/L [facility] BUN 56(H) 6 - 25 mg/dL [facility] Creatinine 1.71(H) 0.80 - 1.30 mg/dL [facility] Glucose 111 70 - 199 mg/dL [facility] Comment: Interpretive Data Fasting glucose >/= 126 mg/dl is diagnostic for diabetes. Fasting is defined as no caloric intake for at least 8 hours. Fasting glucose between 100 mg/dl to 125 mg/dl is diagnostic of prediabetes. In a patient with classic symptoms of hyperglycemia or hyperglycemic crisis, a random glucose >/= 200 mg/dl is diagnostic for diabetes. In the absence of unequivocal hyperglycemia, results should be confirmed by repeat testing. The classification and Diagnosis of Diabetes Diabetes Care 2021; 46: S19-S40. Current interpretive data was last revised 2022. Calcium 8.8 8.5 - 10.3 mg/dL [facility] Bilirubin, total 0.9 0.1 - 1.2 mg/dL [facility] Protein, pl 6.3(L) 6.5 - 8.5 g/dL [facility] Albumin 2.5(L) 3.5 - 5.0 g/dL [facility] Alk phos 51 40 - 130 Units/L [facility] ALT 45 7 - 55 Units/L [facility] AST 59(H) 10 - 50 Units/L [facility] Blood 02/21/2025 5:06 AM CDT 02/21/2025 5:26 AM CDT us Hood Pacheco MD LAB BLOOD ORDERABLES Final Resul t [facility] Department [place] [address] * XR Chest 1 View (02/21/2025 4:26 AM CDT) Anatomical Region Laterality Modality Body, Chest N/A Computed Radiogr aphy 02/21/2025 11:1 2 AM CDT Impressions 02/21/2025 11:32 AM CDT The current study is compared with the prior radiograph dated 02/19/2025 * New right internal jugular central venous catheter tip terminates in the superior vena cava. * Postsurgical changes of midline sternotomy with unchanged sternal wires, multiple stable broken wires. * Surgical clips project over the mediastinum. The right costophrenic angle is excluded. Interval increase in left pleural effusion, now moderate. Interval complete collapse of left lower lung may be secondary to mucus plugging or passive atelectasis secondary to the effusion. The heart and mediastinal contours are stable, with an increasingly obscured cardiac silhouette. Dictated by: Ean Ramos M.D. The radiology attending physician has personally reviewed this study, and had reviewed and/or edited this written report and agrees with it. Electronically signed by: Lynda Romano M.D. Narrative 02/21/2025 11:32 AM CDT EXAMINATION: 1 view chest radiograph Procedure Note Lynda Romano MD - 02/21/2025 EXAMINATION: 1 view chest radiograph IMPRESSION: The current study is compared with the prior radiograph dated 02/19/2025 * New right internal jugular central venous catheter tip terminates in the superior vena cava. * Postsurgical changes of midline sternotomy with unchanged sternal wires, multiple stable broken wires. * Surgical clips project over the mediastinum. The right costophrenic angle is excluded. Interval increase in left pleural effusion, now moderate. Interval complete collapse of left lower lung may be secondary to mucus plugging or passive atelectasis secondary to the effusion. The heart and mediastinal contours are stable, with an increasingly obscured cardiac silhouette. Dictated by: Ean Ramos M.D. The radiology attending physician has personally reviewed this study, and had reviewed and/or edited this written report and agrees with it. Electronically signed by: Lynda Romano M.D. Khalif Gonzalez MD IMG XR PROCEDURES Final Result * (ABNORMAL) POC Blood Gas and Chemistries, Venous - (02/21/2025 3:04 AM CDT) pH, Daniel POC 7.31(L) 7.32 - 7.43 pCO2, daniel POC 52(H) 40 - 50 mmHg [facility] pO2, daniel POC 48 mmHg [facility] Na, POC 128(L) 135 - 145 mmol/L [facility] K POC 4.1 3.3 - 4.9 mmol/L [facility] Comment: Interpretive Data Not all point of care methods assess for hemolysis. Confirm with instrument and retest K+ if not consistent with clinical signs and symptoms. Current Interpretive Data was last revised on 2024. Cl, POC 94(L) 97 - 110 mmol/L [facility] Ionized Ca, POC 3.98(L) 4.50 - 5.10 mg/dL [facility] Glucose, POC 150 70 - 199 mg/dL [facility] Lactate, POC 3.4(H) 0.7 - 2.0 mmol/L [facility] O2Hb, Daniel POC 77.0(L) 90.0 - 95.0 % [facility] COHb, Daniel POC 2.0 0.0 - 2.9 % [facility] MetHb, Daniel POC 0.4 0.0 - 1.9 % [facility] O2 Sat, Daniel POC (Annalisa) 79 % [facility] Base excess, POC -0.7 mmol/L [facility] HCO3, Daniel POC 26 20 - 30 mmol/L [facility] Hct, POC 35.0(L) 41.4 - 51.6 % [facility] Total Hb, POC 11.6(L) 13.8 - 17.2 g/dL [facility] Blood 02/21/2025 3:04 AM CDT 02/21/2025 3:04 AM CDT us Hood Pacheco MD LAB POCT ORDERABLES - DEVICE Fin al Result [facility] Department [place] [address] * [place] INSJ NON-TUNNELED CENTRAL VENOUS CATH AGE 5 YR/> (02/21/2025 1:30 AM CDT) Narrative Sanjiv Bishop MD - 02/21/2025 1:30 AM CDT Sanjiv Bishop MD 02/21/2025 9:03 AM Central Line Insertion Date/Time: 02/21/2025 1:30 AM Performed by: Reema Garcia MD Authorized by: Sanjiv Bishop MD Irma Protocol: RN Notified of Procedure: yes Patient's stated name/ matches armband: Yes Imaging: Pertinent imaging reviewed, correctly oriented and match to patient identifiers Lab/Diag test results: Pertinent lab/diag tests reviewed and match to patient identifiers Supplies, devices and special equipment are available: yes Site/side marked: yes Immediately prior to the procedure a time out was called: a verbal verification by the procedure participants confirmed correct patient identity, correct site/side marked and visible (if applicable); agreement on procedure to be done; and correct patient positioning Indications: Vascular access and administer vasoactive medications Anesthesia (see MAR for exact dosage) Anesthesia method: Local infiltration Local anesthetic: Lidocaine 1% Patient position: Flat Skin preparation: Skin prepped with 2% chlorhexidine Provider preparation: Cap, full body drape, gloves, gown, handwashing and mask Location: Right internal jugular Ultrasound guidance: Real-time needle guidance Assessment: Blood return through all ports Catheter type: Triple lumen Catheter size: 7 Fr Needle inserted, vein idenitified then guidewire inserted easily into vein: Yes Number of attempts: 1 Successful placement: Yes Catheter secured at (cm): 16 Catheter length (cm): 20 Line securement: Line sutured, dressing applied and securement device Patient tolerance: Patient tolerated the procedure well with no immediate complications Post Procedure Debrief: All guidewires, needles, sponges or other items are accounted for: yes Turbulent flow in R atrium of heart on ultrasound with flush of central line Sanjiv Bishop MD [facility] CL[facility] Final Result * (ABNORMAL) POC Blood Gas and Chemistries, Arterial - (02/21/2025 1:08 AM CDT) pH, Art POC 7.32(L) 7.35 - 7.45 pCO2, Art POC 46(H) 35 - 45 mmHg [facility] pO2, Art POC 40(C) 83 - 108 mmHg [facility] Na, POC 127(L) 135 - 145 mmol/L [facility] K POC 4.8 3.3 - 4.9 mmol/L [facility] Comment: Interpretive Data Not all point of care methods assess for hemolysis. Confirm with instrument and retest K+ if not consistent with clinical signs and symptoms. Current Interpretive Data was last revised on 2024. Cl, POC 95(L) 97 - 110 mmol/L [facility] Ionized Ca, POC 4.06(L) 4.50 - 5.10 mg/dL [facility] Glucose, POC 91 70 - 199 mg/dL [facility] Lactate, POC 5.1(C) 0.7 - 2.0 mmol/L [facility] O2Hb, Art POC 69.5(C) 90.0 - 95.0 % [facility] COHb, Art POC 2.0 0.0 - 2.9 % [facility] MetHgb, Art POC 0.2 0.0 - 1.9 % [facility] SO2 (annalisa) arterial 71(L) 90 - 95 % [facility] Base excess, POC -2.6 mmol/L [facility] HCO3, Art POC 24 20 - 30 mmol/L [facility] Hct, POC 39.0(L) 41.4 - 51.6 % [facility] Total Hb, POC 12.9(L) 13.8 - 17.2 g/dL [facility] Blood 02/21/2025 1:08 AM CDT 02/21/2025 1:08 AM CDT Hood Pacheco MD LAB POCT ORDERABLES - DEVICE Fin al Result [facility] Department [place] [address] * [place] ARTL CATHJ/CANNULJ MNTR/TRANSFUSION SPX PRQ (02/21/2025 1:00 AM CDT) Narrative Sanjiv Bishop MD - 02/21/2025 1:00 AM CDT Sanjiv Bihsop MD 02/21/2025 9:03 AM Arterial Line Insertion Date/Time: 02/21/2025 1:00 AM Performed by: Reema Garcia MD Authorized by: Sanjiv Bishop MD Irma Protocol: RN Notified of Procedure: yes Patient's stated name/ matches armband: Yes Allergies confirmed: yes Consent form signed, dated, timed; matches correct patient, intended procedure and site: No consent form due to emergent status Lab/Diag test results: Pertinent lab/diag tests reviewed and match to patient identifiers Supplies, devices and special equipment are available: yes Site/side marked: yes Indications: multiple ABGs and hemodynamic monitoring Location: Left femoral Anesthesia: Local infiltration Local anesthetic: Lidocaine 1% Patient skin preparation: chlorhexidine Ultrasound guidance: Real-time needle guidance Patient preparation: Cap, gloves, handwashing and mask Catheter gauge: 20 Single percutaneous needle puncture: Yes Seldinger technique used: Yes Number of attempts: 1 Placement confirmed with arterial waveform: Yes Post-procedure: Line sutured Post-procedure CMS: Normal and unchanged Patient tolerance: Patient tolerated the procedure well with no immediate complications Complications: no complications noted during insertion Post Procedure Debrief: All guidewires, needles, sponges or other items are accounted for: yes Sanjiv Bishop MD IV THERAPY ORDERABLES Final Result * Check Sample (02/21/2025 12:57 AM CDT) ABO Rh A Positive [facility] OTHER 02/21/2025 12:5 7 AM CDT 02/21/2025 12:57 AM CDT Hood Pacheco MD LAB BLOOD ORDERABLES Final Resul t [facility] Department [place] [address] [facility] * (ABNORMAL) Lactate (02/21/2025 12:12 AM CDT) Lactate 3.8(H) 0.7 - 2.0 mmol/L Blood 02/21/2025 12:1 2 AM CDT 02/21/2025 12:31 AM CDT Hood Pacheco MD LAB BLOOD ORDERABLES Final Resul t [facility]
--- OUTSIDE RECORDS SUMMARY | 2025-03-12 04:41 | XMS_ITS | Clinical Summary ---
Author Organization [facility] Jaimeolga donnell [facility] Address [address] [place] [address] Care Team Providers Care Administrative Library Assistant Name Role Phone Giuliano Isbell MD Primary Care Provider [phone] Allergies No known active allergies Medications aspirin (ECOTRIN EC) 81 mg Tablet, Delayed Release (E.C.) aspirin 81 mg tablet,delayed release Take 1 tablet every day by oral route. Active dicyclomine (BENTYL) 10 mg capsule dicyclomine 10 mg capsule 9 Active atorvastatin (LIPITOR) 10 mg tablet every 24 hours. Acti ve clopidogreL (PLAVIX) 75 mg Tablet clopidogrel 75 mg tablet Active omeprazole (PriLOSEC) 40 mg Capsule, Delayed Release(E.C.) omeprazole 40 mg capsule,delayed release Active carvediloL (COREG) 6.25 mg tablet carvedilol 6.25 mg tablet Active pregabalin (LYRICA) 75 mg Capsule pregabalin 75 mg capsule 1 po bid Active Blood-Glucose Meter (True Metrix Glucose Meter) True Metrix Glucose Meter Active Insulin Cushman, Disposable, (TRUEplus Pen Needle) 31 gauge x 1/4 Needle TRUEplus Pen Needle 31 gauge x 1/4 Active lancets (TRUEplus Lancets) 33 gauge TRUEplus Lancets 33 gauge Active blood sugar diagnostic (True Metrix Glucose Test Strip) Strip True Metrix Glucose Test Strip Active acetaminophen (TYLENOL) 325 mg tablet Take by mouth. Activ e alcohol Pads, Medicated BD Alcohol Swabs Act latoya cholecalciferol, vitamin D3, 1,000 unit Take 1,000 Units by mouth daily. Active flu vaccine quadrivalent 2019-,65 yr+,,PF, (Fluzone HighDose Quad 20-21 PF) 240 mcg/0.7 mL Syringe syringe Fluzone High-Dose Quad 2020-21 (PF) 240 mcg/0.7 mL IM syringe ADM 0.7ML IM UTD Active insulin aspart U-100 (NovoLOG U-100 Insulin aspart) 100 unit/mL vial Novolog U-100 Insulin aspart 100 unit/mL solution 9 Active insulin aspart protamine-aspart (NovoLOG Mix 70-30FlexPen U-100) 100 unit/mL (70-30) pen syringe Novolog Mix 70-30 FlexPen U-100 Insulin 100 unit/mL subcutaneous pen 1 Active insulin glargine (LANTUS) 100 unit/mL vial Inject 5 Units by subcutaneous injection daily at bedtime. Active insulin lispro (HumaLOG) 100 unit/mL vial Inject 5 Units by subcutaneous injection. Active tiotropium (SPIRIVA RESPIMAT) 2.5 mcg/actuation Mist every 24 hours. Acti ve APPLE CIDER VINEGAR ORAL Take by mouth. 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 Encounters Date Type Department Care Team Description 03/07/2025 External Device Data ST[facility] ABSTRACTION Provider, Abstract 02/28/2025 External Device Data [facility] ABSTRACTION Provider, Abstract 02/08/2025 External Device Data [facility] ABSTRACTION Provider, Abstract 01/30/2025 External Device Data [facility] ABSTRACTION Provider, Abstract 01/17/2025 External Device Data [facility] ABSTRACTION Provider, Abstract 12/20/2024 External Device Data [facility] ABSTRACTION Provider, Abstract 12/14/2024 External Device Data [facility] ABSTRACTION Provider, Abstract 12/14/2024 External Device Data [facility] ABSTRACTION Provider, Abstract from Last 3 Months Family History Medical History Relation Name Comments Diabetes Son 1 Relation Name Status Comments Brother 1 Alive Brother 2 Alive Father Mother Sister 1 Alive Sister 2 Alive Sister 3 Alive Son 1 Alive Son 2 Alive Son 3 Alive Social History Tobacco Use Types Packs/Day Years Used Date Smoking Tobacco: Every Day Smokeless Tobacco: Never Tobacco Cessation:Ready to Q uit: Not Asked; Counseling Given: Not Answered Alcohol Use Standard Drinks/Week Comments Yes 0 (1 standard drink = 0.6 oz pur e alcohol) Sex and Gender Information Value Date Recorded Sex Assigned at Not on file Legal Sex Male 9:18 AM CDT Gender Identity Not on file Sexual Orientation Not on file Last Filed Vital Signs Vital Sign Reading Time Taken Comments Blood Pressure 117/68 08/08/2024 11:04 AM CDT Pulse 62 08/08/2024 11:04 AM CDT Temperature 36.8 C (98.2 F) 08/08/2024 11:04 AM CDT Respiratory Rate 20 08/08/2024 11:04 AM CDT Oxygen Saturation 93% 08/08/2024 11:04 AM CDT Inhaled Oxygen Concentration - - Weight 112 kg (247 lb) 08/08/2024 11:04 AM CDT Height 182.9 cm (6') 06/11/2022 4:17 PM CDT Body Mass Index 33.5 06/11/2022 4:17 PM CDT Plan of Treatment Upcoming Encounters Date Type Department Care Team (Late st Contact Info) Description 08/08/2025 1:00 PM CDT Office Visit [facility] Oncology and Hematology - [place] [address] [place] [address] [place] [address] Prem Yang MD [address] [place] [address] Health Maintenance Due Date Last Done Comments DIABETES ANNUAL RETINAL EXAM 02/13/1972 DIABETES MICROALBUMIN ANNUAL SCREEN 02/13/1972 LDL CHOLESTEROL ANNUAL 02/13/1972 DTAP/TDAP/TD VACCINES (1 - Tdap) 1973 COLORECTAL SCREENING 1999 Colorectal Cancer Screening 1999 FIT-DNA Q 3 years 1999 FIT/FOBT Q 1 year 1999 Flex Sig/CT Colonography Q 5 years 1999 RSV VACCINE (60+ or ) (1 - Risk 60-74 years 1-dose series) 2014 Abdominal Aortic Aneurysm (A AA) Screening 2019 INFLUENZA VACCINE (#1) 2024 3, 09/12/2022, 08/21/2021, Additional history exists COVID-19 Vaccine (3 - 2023-2 5 season) 2024 03/14/2021, 02/23/2021 DIABETES HBA1C Q 6 MONTHS 12/22/20242023, 11/28/2022, 08/10/2019 DIABETES ANNUAL FOOT EXAM 06/21/2025 06/21/2024 ZOSTER VACCINE Completed 09/12/2022, 11/23, 09/03/2021 PNEUMOCOCCAL VACCINE 50+ YEARS Completed 1 12/13/2022, 10/03/2022, 08/21/2021, Additional history exists Insurance Care Teams Administrative Library Assistant Relationship Specialty Start Date End Date Giuliano Isbell MD [address] [place] [phone] PCP - General Family Practice 08/08/24
--- OUTSIDE RECORDS SUMMARY | 2025-03-12 04:42 | XMS_ITS | CONTINUITY OF CARE DOCUMENT ---
Author Name millie, larryser Address Unknown Organization [facility] Address [address] [facility] [address] [place] [address] Phone [phone] Care Team Providers Care Customer Consultant Name Role Phone Mily Hay MD Unavailable [phone] LUCIE VASQUEZ MD Unavailable [phone] LUCIE VASQUEZ MD Unavailable PROBLEMS Condition Status Date Provider Notes Cardiovascular screening completed - Mily Hay MD CAD - S/P CABG ASHLEY>LAD/SVG>PDA, SVG>ramus/OM1/OM2 active Mily Hay MD COPD active Mily Hay MD Diabetes mellitus active Mily Hay MD Nausea active Mily Hay MD Ischemic Cardiomyopathy - EF of 30% active Mily Hay MD Hyperlipidemia active Mily Hay MD Cholelithiasis active Mily Hay MD Tobacco abuse active Mily Hay MD Paranoid schizophrenia active Mily reyes MD Chronic back pain active Mily Hay MD Gout active Mily Hay MD ENCOUNTERS Date Type Provider Location Encounter Diag nosis - In-person encounter Office Visit Mily Hay MD [facility] - In-person encounter Office Visit Mily Hay MD [facility] Hyperlipidemia - In-person encounter Office Visit Mily Hay MD [facility] CAD - S/P CABG ASHLEY>LAD/SVG>PDA, SVG>ramus/OM1/BB6Cxemsixluu asisIschemic Cardiomyopathy - EF of 30% - In-person encounter Office Visit Mily Hay MD [facility] Paranoid schizophreniaNausea - In-person encounter Office Visit Mily Hay MD [facility] Cardiovascular screeningCAD - S/P CABG ASHLEY>LAD/SVG>PDA, SVG>ramus/OM1/ZA0YLWSUcnxhs es mellitusGoutChronic back painParanoid schizophreniaTobacco abuse VITAL SIGNS Date Observation Value Provider Body Mass Index (Ratio) 35.39 kg/m2 Perry Hay MD blood pressure, cuff size regular Cy marta Grimaldo blood pressure, diastolic 80 mm[Hg] Marty marta Grimaldo blood pressure, systolic 144 mm[Hg] Bernarda Grimaldo pulse rate 65 /min Barbie ma oxygen saturation, oximetry 97 % Barbie Grimaldo respiratory rate E&M 16 /min Barbie Grimaldo weight E&M 261 [lb_av] Barbie ma height E&M 72 [in_i] Babrie John Body Mass Index (Ratio) 35.94 kg/m2 Pantera n Agustínte blood pressure, cuff size large Ke rri Gruenenfelder blood pressure, diastolic 90 mm[Hg] Ke rri Gruenenfelder blood pressure, systolic 150 mm[Hg] Ker ri Sandranenfelder oxygen saturation, oximetry 95 % Maria Teresa Francesca respiratory rate E&M 18 /min Maria Teresa Paolo caroeldbirgit pulse rate 70 /min Maria Teresa Sammyuenenfe er weight E&M 265 [lb_av] Maria Teresa Bradley er height E&M 72 [in_i] Maria Teresa Bradley er Body Mass Index (Ratio) 35.91 kg/m2 Perry Hay MD blood pressure, diastolic 86 mm[Hg] Tara Maldonado Newsome blood pressure, systolic 149 mm[Hg] Deepti Laird Newsome oxygen saturation, oximetry 91 % Louise Newsome respiratory rate E&M 20 /min Pablito Newsome pulse rate 60 /min Louise Joshi nsdale weight E&M 264.8 [lb_av] Louise eatonon height E&M 72 [in_i] Louise Joshi kelleyon Body Mass Index (Ratio) 35.94 kg/m2 Perry Hay MD blood pressure, cuff size regular Cy marta Grimaldo blood pressure, diastolic 70 mm[Hg] Cy marta Grimaldo blood pressure, systolic 130 mm[Hg] Bernarda eliu Grimaldo oxygen saturation, oximetry 97 % Barbie Grimaldo respiratory rate E&M 16 /min Barbie Grimaldo pulse rate 67 /min Barbie Canelabel l weight E&M 265 [lb_av] Barbie Campbel l height E&M 72 [in_i] Barbie Campbel l Body Mass Index (Ratio) 36.07 kg/m2 Mahesh Parada blood pressure, resting Yes Kill een Markham blood pressure, diastolic 80 mm[Hg] Ki lleen Markham blood pressure, systolic 120 mm[Hg] Aubree anderson Markham oxygen saturation, oximetry 95 % Henderson Markham respiratory rate E&M 16 /min Henderson Markham pulse rate 95 /min Yoly Markham weight E&M 266 [lb_av] Yoly Markham height E&M 72 [in_i] Yoly Markham ALLERGIES No Known Drug Allergies HISTORY OF MEDICATION USE Medication Status Instructions Dates Provider Indications Com ments nitroglycerin 0.4 mg tablet, sublingual active DISSOLVE ONE TABLET SUBLINGUALLY EVERY 5 MINUTES UP TO THREE TIMES NEEDED FOR CHEST PAIN THEN CALL EMS Leobardo Camejo nicotine 14 mg/24 hr patch 24 hour active Apply 1 patch to skin once a day Mily Hay MD albuterol sulfate 0.63 mg/3 mL solution for nebulization active as directed Louise Newsome TAMSULOSIN HCL 0.4 MG ORAL CAPSULE completed 1 tab once daily - Maria Teresa Ma HYDROXYZINE HCL 25 MG ORAL TABLET completed 1 tab once daily - Maria Teresa Ma INDOMETHACIN 50 MG ORAL CAPSULE completed 1 tab once daily - Maria Teresa Ma aspirin 81 mg tablet,delayed release (DR/EC) active 1 tablet by mouth once a day Louise Newsome dicyclomine 10 mg capsule active 1 tablet three times a day Mily Hay MD #90, 30 days supply, Filled 04/08/2019 GABAPENTIN 300 MG ORAL CAPSULE completed - Maria Teresa Ma #30, 30 days supply, Filled 04/08/2019 Novolog U-100 Insulin aspart 100 unit/mL solution active 28 unit every morning Mily Hay MD lisinopril 5 mg tablet active 1 tablet once a day Louise Newsome Nitrostat 0.4 mg tablet, sublingual active tablet under tongue as needed Leobardo Camejo metoprolol tartrate 25 mg tablet active 1 tablet twice a day Mily Hay MD simvastatin 40 mg tablet active 1 tablet once a day Mily Hay MD Ventolin HFA 90 mcg/actuation HFA aerosol inhaler active 2 puff every four to six hours Mily Hay MD Daily Value tablet active Mily Hay MD [facility] FISH OIL CAPSULE active 2 tablet once a day Mily Hay MD Plavix 75 mg tablet active 1 tablet once a day Mily Hay MD omeprazole 40 mg capsule,delayed release(DR/EC) active 1 tablet once a day Mily Hay MD CELEXA TABLET completed One tablet once daily - Maria Teresa Francesca SOCIAL HISTORY Date Observation Value Provider smoking status Former smoker Mily burton MD social history reviewed E&M revi ewed - no changes required Mily Hay MD smoking, year quit 2019 Barbie urias number of years as a smoker 45 a Barbie Grimaldo smoking history, tot al pack/day 1/2 Barbie Grimaldo cigarette use yes Barbie Kina veras smoking, year quit 2019 Federico ferro social history E&M S moking History: Wyatt westbrook is a former smoker. Federico Banks social history reviewed E&M revi ewed - no changes required Mily Hay MD number of years as a smoker 45 a Maria Teresa Francesca smoking history, tot al pack/day 1/2 Maria Teresa Francesca cigarette use yes Maria Teresa Christiansonbranden jarquin smoking status Former smoker Federico Darren social history E&M S moking History: Wyatt westbrook currently smokes every day. Wyatt westbrook has been counseled to quit. Mily Hay MD social history reviewed E&M revi ewed - no changes required Mily Hay MD smoking/tobacco cess ation, patient education and counseling yes Louise Newsome number of years as a smoker 45 a Louise Newsome smoking history, tot al pack/day 1/2 Louise Newsome cigarette use yes Louise kerr smoking status Current every day smoker Sharonda Newsome number of grandchildren Mily Hay MD social history E&M S moking History: P dariana currently smokes every day. P atros has been counseled to quit. Mily Hay MD social history reviewed E&M revi ewed - no changes required Mily Hay MD smoking/tobacco cess ation, patient education and counseling yes Mily Hay MD number of years as a smoker 45 a Barbie Dillan smoking history, tot al pack/day 1/2 Barbie Dillan cigarette use yes Barbie Kina veras smoking status Current every day smoker C marycruz Grimaldo number of grandchildren Mily Hay MD social history reviewed E&M revi ewed - no changes required Mily Hay MD number of years as a smoker 45 a Yoly Markham smoking history, tot al pack/day 1/2 Yoly Markham cigarette use yes Yoly Schmittam smoking status Current every day smoker Cary luisana Schmittam FUNCTIONAL STATUS Date Observation Value Provider HRA, CV Assess/Plan, Angina (inactive) Management Plan continue current therapy Mily Hay MD HRA, CV Assess/Plan, Angina (inactive) Management Plan continue current therapy Federico Banks HRA, CV Assess/Plan, Angina (inactive) Management Plan schedule PCI Mily Hay MD HRA, CV Assess/Plan, Angina (inactive) Management Plan continue current therapy, antianginal therapy Mily Hay MD HRA, CV Assess/Plan, Angina (inactive) Management Plan continue current therapy Mily Hay MD FAMILY HISTORY Family Member Condition Father Family History of Jenna ng Cancer: Mother Family History of Jenna ng Cancer: INSURANCE PROVIDERS Payer name Policy type / Coverage type Gabriela red republican ID MEDICAID [place] Medicaid [id number] [facility] MEDICARE COMPLETE HMO Other [id number] ADVANCE DIRECTIVES Name Date DISCUSSED - NO DECISION MADE TREATMENT PLAN Date Name Performer Cardiology follow up :Continues on Simvastatin. We aim for an LDL <70. Mily Hay MD Cardiology follow up :Continues on Novolog and sugars have been well controlled with dietary discretion. Mily Hay MD Cardiology follow up :Uses inhalers as needed. Mily Hay MD Cardiology follow up:Chest pain free. Mily Hay MD Cardiology follow up :Had cardiac cath august 2019 which showed grapht to LAD and vein graft to PDA were patent. The sequential vein graph to the ramus and the OM were occulded. He had severe 3 vessel disease. Medical management was advised and he has been asymptomatic. Will repeat echo at next visit. Mily Hay MD Cardiology Follow up : Kendall onofre on simvastatin. We aim for an LDL <70. Federico Banks Cardiology Follow up : Kendall onofre on Novalog. Reduced intake of carbohydrates and sugars advised. Federico Banks Cardiology Follow up : H ad cardiac cath august 2019 which showed grapht to LAD and vein graft to PDA were patent. The sequential vein graph to the ramus and the OM were occulded. He had severe 3 vessel disease. Medical management was advised and he has been asymptomatic. He has not used his Nitro. Mily Hay MD Cardiology Follow up : Kendall onofre on simvastatin. H is updated medication list for this problem includes: Simvastatin 40 Mg Oral Tablet (Simvastatin) ..... One tablet once daily Mily Hay MD Cardiology Follow up : H ad cardiac cath august 2019 which showed limographt to LAD and vein graft to PDA were patent. The sequential vein graph to the ramus and the OM were occulded. He had severe 3 vessel disease. Medical management was advised and he has been asymptomatic. He has not used his Nitro. Mily Hay MD Cardiology Follow up : C ontinues on Novalog. Mily Hay MD Cardiology Follow up : U ses inhalers as needed. Mily Hay MD Cardiology Follow up : M anagement as per psychiatry. Mily Hay MD Cardiology:We await the results of the cath prior to further intervention as patient is symptomatic with nausea. Mily Hay MD Cardiology:STRONGLY ENCOURAGED TO STOP SMOKING; SMOKING CESSATION TECHNIQUES DISCUSSED. Mily Hay MD Cardiology:Will undergo cardiac cath. Mily Hay MD Cardiology:Managemen t as per yourself. Mily Hay MD Cardiology:Continues on insulin. A1c 8.5%. Mily Hay MD Cardiology:Remains s hort of breath. Continues on Ventolin and Abluterol as needed. Mily Hay MD Cardiology:Chest marina n, shortness of breath, and abnormal stress test in a patient with known CAD and previous bypass. A cardiac cath was discussed with the patient and he is agreeable to undergo the procedure. The risks and benefits of the procedure, including but not limited the risk of heart attack, , stroke, bleeding, kidney failure, and loss of limb as well as the alternative of continued medical therapy, stress testing or bypass surgery were discussed with the patient and any present family members and the patient wishes to proceed with cardiac cath and stenting. The patient and family had opportunity to discuss this with us. Written material including informed consent was given out. Mily Hay MD Cardiology follow up :Continues on Novolog. Mily Hay MD Cardiology follow up :Management as per yourself. Mily Hay MD Cardiology follow up :No recurre nce. Not on medications. Mily Hay MD Cardiology follow up :Nausea and right sided epigastric pain after eating. Will arrange abdominal ultrasound to evaluate abdominal organs including gallbladder and liver. Mily Hay MD Cardiology follow up :Remains short of breath. Continues on Ventolin as needed. Mily Hay MD Cardiology follow up :Effort related chest pain and shortness of breath on exertion in a patient with CAD and risk factors. He has been advised to take nitro as needed for chest pain. He continues on Plavix. Will arrange echocardiogram and stress test. Mily Hay MD Cardiology:STRONGLY ENCOURAGED TO STOP SMOKING; SMOKING CESSATION TECHNIQUES DISCUSSED. Mily Hay MD Cardiology Mily Skinner Cardiology:Diet controlled. Perry Hay MD Cardiology:On Ventol in. Continues to smoke. We will check PFT's and a six minute walk test. Mily Hay MD Cardiology:Chest marina n free. Effort tolerance reduced likely due to COPD. Continues on Plavix. Will check echo to assess LV function and wall motion. Mily Hay MD Date Name Complete Echo PROTHROMBIN TIME WIT H INR LIPID PANEL CBC (INCLUDES DIFF/P LT) BASIC METABOLIC PANE L W/EGFR HEMOGLOBIN A1c Cardiac Cath - L/R - GC Abdominal US Stress Regadenoson Complete Echo 6 minute walk test DLCO - 82885 FRC - 43622 FVC - 44793 Complete Echo HISTORY OF PROCEDURES Procedure Date Procedure Name Provider Procedure Notes S tatus EKG Mily Hay MD complet ed EKG Mily Hay MD complet ed EKG Mily Hay MD complet ed Regadenoson, 4 units Mily Hay MD completed Cardiolite, 2 units Mily Hay MD completed SPECT Images Mily Hay MD compl eted Stress EKG Mily Hay MD complet ed Ultrasound, abdomen, complete Mily Hay MD completed EKG Mily Hay MD complet ed FVC / MVV with bronchodilator - 66200 Mily Hay MD completed FRC - 40237 Mily Hay MD comple natalya SpO2 w/o 6min walk/titration Mily Hay MD completed DLCO - 37837 Mily Hay MD compl eted EKG Mily Hay MD complet ed
--- OUTSIDE RECORDS SUMMARY | 2025-03-12 04:42 | XMS_ITS | Referral Summary ---
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 POCT ORDERABLES - DEVICE F inal Result Performing Organization Address [facility] de Phone Number [facility] [employer] [place] [address] * (ABNORMAL) POCT glucose (02/27/2025 4:24 PM CDT) Glucose, POC 251(H) 70 - 199 mg/dL Blood 02/27/2025 4:24 PM CDT 02/27/2025 4:24 PM CDT Eagle Jerry MD LAB POCT ORDERABLES - DEVICE F inal Result Performing Organization Address [facility] de Phone Number [facility] [employer] [place] [address] * (ABNORMAL) Hemoglobin and hematocrit (02/27/2025 3:01 PM CDT) Hgb 7.7(L) 13.0 - 17.5 g/dL Hct 22.8(L) 38.9 - 50.3 % [facility] Blood 02/27/2025 3:01 PM CDT 02/27/2025 3:26 PM CDT Eagle Jerry MD LAB BLOOD ORDERABLES Final Res ult Performing Organization Address [facility] Co de Phone Number [facility] [employer] [place] [address] * XR Chest 1 View (02/27/2025 1:19 [...] DEVICE F inal Result Performing Organization Address [facility] de Phone Number [facility] Department [place] [address] * Type and screen (02/27/2025 10:38 AM CDT) [facility] Kp, indirect Negative ABO Rh A Positive [facility] Blood 02/27/2025 10:3 8 AM CDT 02/27/2025 10:56 AM CDT Narrative [facility] - 02/27/2025 11:47 AM CDT Has the patient had Daratumumab or Isatuximab in the past 6 months?->Unknown Eagle Jerry MD LAB BLOOD BANK TEST ORDERABLES Final Result Performing Organization Address [facility] de Phone Number [facility] [place] [address] * POCT glucose (02/27/2025 7:55 AM CDT) [facility] Glucose, POC 184 70 - 199 mg/dL Blood 02/27/2025 7:55 AM CDT 02/27/2025 7:55 AM CDT Eagle Jerry MD LAB POCT ORDERABLES - DEVICE F inal Result Performing Organization Address [facility] de Phone Number [facility] [place] [address] * eGFR (02/27/2025 12:26 AM CDT) [facility] eGFR 83 >=60 mL/min/1. 73 m2 Comment: [...] MD LAB BLOOD ORDERABLES Asya ma Result [facility] Department [place] [address] * (ABNORMAL) CBC without differential (02/27/2025 12:26 AM CDT) WBC 8.13 3.80 - 9.90 K/cumm Hgb 7.0(L) 13.0 - 17.5 g/dL [facility] Hct 20.7(L) 38.9 - 50.3 % [facility] Plt 110(L) 150 - 400 K/cumm [facility] MPV 11.9 9.1 - 12.3 fL [facility] RBC 2.23(L) 4.30 - 5.80 M/cumm [facility] MCV 92.8 81.3 - 96.4 fL [facility] MCH 31.4 27.1 - 33.3 pg [facility] MCHC 33.8 32.3 - 35.7 g/dL [facility] RDW CV 16.5(H) 11.1 - 14.9 % [facility] RDW SD 54.7(H) 35.7 - 48.1 fL [facility] NRBC abs 0.02(H) 0.00 - 0.01 K/cumm [facility] Blood 02/27/2025 12:2 6 AM CDT 02/27/2025 12:36 AM CDT Nolan Barrow MD LAB BLOOD ORDERABLES Asya l Result Performing Organization Address City/[facility]/ZIP Co de Phone Number [facility] Department [place] [address] * (ABNORMAL) Magnesium (02/27/2025 12:26 AM CDT) [facility] Magnesium 2.6(H) 1.4 - 2.5 mg/dL Blood 02/27/2025 12:2 6 AM CDT 02/27/2025 12:36 AM CDT Abril Paz MD LAB BLOOD ORDERABL ES Final Result Performing Organization Address [facility] Co de Phone Number [facility] [place] [address] * (ABNORMAL) Comprehensive metabolic panel (02/27/2025 12:26 AM CDT) [facility] Sodium 133(L) 135 - 145 mmol/L Potassium, pl 4.6 3.3 - 4.9 mmol/L [facility] Chloride 100 97 - 110 mmol/L [facility] CO2 27 22 - 32 mmol/L [facility] Anion gap 6 2 - 15 mmol/L [facility] BUN 61(H) 6 - 25 mg/dL [facility] Creatinine 0.97 0.80 - 1.30 mg/dL [facility] Glucose 182 70 - 199 mg/dL [facility] Comment: Interpretive Data Fasting glucose >/= 126 [...] 2022. Calcium 7.5(L) 8.5 - 10.3 mg/dL [facility] Bilirubin, total 0.5 0.1 - 1.2 mg/dL [facility] Protein, pl 5.9(L) 6.5 - 8.5 g/dL [facility] Albumin 2.8(L) 3.5 - 5.0 g/dL [facility] Alk phos 84 40 - 130 Units/L [facility] ALT 60(H) 7 - 55 Units/L [facility] AST 54(H) 10 - 50 Units/L [facility] Blood 02/27/2025 12:2 6 AM CDT 02/27/2025 12:36 AM CDT us Nolan Barrow MD LAB BLOOD ORDERABLES Asya l Result [facility] Department [place] [employer] [place] [address] * POCT glucose (02/26/2025 8:32 PM CDT) Glucose, POC 180 70 - 199 mg/dL Blood 02/26/2025 8:32 PM CDT 02/26/2025 8:32 PM CDT us Eagle Jerry MD LAB POCT ORDERABLES - DEVICE F inal Result [facility] [place] [employer] [place] [address] * POCT glucose (02/26/2025 5:01 PM CDT) Glucose, POC 143 70 - 199 mg/dL Blood 02/26/2025 5:01 PM CDT 02/26/2025 5:01 PM CDT Eagle Jerry MD LAB POCT ORDERABLES - DEVICE F inal Result Performing Organization Address [facility] de Phone Number [facility] [employer] [place] [address] * (ABNORMAL) POCT glucose (02/26/2025 11:27 AM CDT) Glucose, POC 279(H) 70 - 199 mg/dL Blood 02/26/2025 11:2 7 AM CDT 02/26/2025 11:27 AM CDT Eagle Jerry MD LAB POCT ORDERABLES - DEVICE F inal Result Performing Organization Address [facility] de Phone Number [facility] [place] [address] * POCT glucose (02/26/2025 7:44 AM CDT) Glucose, POC 143 70 - 199 mg/dL Blood 02/26/2025 7:44 AM CDT 02/26/2025 7:44 AM CDT Nolan Barrow MD LAB POCT ORDERABLES - DEV ICE Final Result Performing Organization Address [facility] de Phone Number [facility] [employer] [place] [address] * eGFR (02/26/2025 6:53 AM CDT) eGFR [...] ORDERABLES F inal Result Performing Organization Address [facility]/ZIP Co de Phone Number [facility] Department [place] [employer] [place] [address] * (ABNORMAL) Magnesium (02/26/2025 6:53 AM CDT) Pathologist [facility] Magnesium 2.8(H) 1.4 - 2.5 mg/dL Blood 02/26/2025 6:53 AM CDT 02/26/2025 6:58 AM CDT Emelia Hunter MD LAB BLOOD ORDERABLES F inal Result [facility] [place] [employer] [place] [address] * (ABNORMAL) Basic metabolic panel (02/26/2025 6:53 AM CDT) Sodium 133(L) 135 - 145 mmol/L Potassium, pl 4.9 3.3 - 4.9 mmol/L [facility] Chloride 98 97 - 110 mmol/L [facility] CO2 29 22 - 32 mmol/L [facility] Anion gap 6 2 - 15 mmol/L [facility] BUN 66(H) 6 - 25 mg/dL [facility] Creatinine 1.05 0.80 - 1.30 mg/dL [facility] Glucose 147 70 - 199 mg/dL [facility] Comment: Interpretive Data Fasting glucose >/= 126 [...] 2022. Calcium 7.9(L) 8.5 - 10.3 mg/dL [facility] Blood 02/26/2025 6:53 AM CDT 02/26/2025 6:58 AM CDT Emelia Hunter MD LAB BLOOD ORDERABLES F inal Result [facility] Department [place] [employer] [place] [address] * POCT glucose (02/25/2025 7:58 PM CDT) Glucose, POC 154 70 - 199 mg/dL Blood 02/25/2025 7:58 PM CDT 02/25/2025 7:58 PM CDT us Nolan Barrow MD LAB POCT ORDERABLES - DEV ICE Final Result [facility] Department [place] [employer] [place] [address] * POCT glucose (02/25/2025 4:26 PM CDT) Glucose, POC 166 70 - 199 mg/dL Blood 02/25/2025 4:26 PM CDT 02/25/2025 4:26 PM CDT us Nolan Barrow MD LAB POCT ORDERABLES - DEV ICE Final Result Performing Organization Address City/[facility] Co de Phone Number [facility] [place] [address] * Infection Prevention Roberto auris PCR, surveillance Axilla/Groin (02/25/2025 12:40 PM CDT) Roberto auris DNA Not Detected Not Detected [facility] Comment: Interpretive Data Testing performed by [facility] using the Baltazar lakeshia 6800 Roberto auris assay. This assay detects DNA from Roberto auris using Real-Time PCR. This assay is laboratory developed and is not cleared by the [facility] Food and Drug Administration. The performance characteristics have been verified by the [facility]. Axilla/Groin 02/25/2025 12:4 0 PM CDT 02/25/2025 1:04 PM CDT Narrative [facility] - 02/26/2025 1:42 PM CDT Order placed by [facility] due to ring surveillance. us Instant Order Generic Provider LAB MICROBIOLOGY - GENERAL ORDERABLES Final Result Performing Organization Address [facility] Co de Phone Number [facility] [place] [address] [facility] * (ABNORMAL) POCT glucose (02/25/2025 11:16 AM CDT) Glucose, POC 204(H) 70 - 199 mg/dL Blood 02/25/2025 11:1 6 AM CDT 02/25/2025 11:16 AM CDT us Nolan Barrow MD LAB POCT ORDERABLES - DEV ICE Final Result Performing Organization Address City/[facility] Co de Phone Number [facility] [place] [address] * (ABNORMAL) POCT glucose (02/25/2025 9:09 AM CDT) Glucose, POC 205(H) 70 - 199 mg/dL Blood 02/25/2025 9:09 AM CDT 02/25/2025 9:09 AM CDT Nolan Barrow MD LAB POCT ORDERABLES - DEV ICE Final Result Performing Organization Address City/[facility]/ZIP Co de Phone Number [facility] Department [place] [address] * eGFR (02/24/2025 8:06 PM CDT) eGFR [...] MD LAB BLOOD ORDERABLES Asya l Result [facility] [place] [address] * (ABNORMAL) CBC without differential (02/24/2025 8:06 PM CDT) WBC 13.73(H) 3.80 - 9.90 K/cumm Hgb 8.3(L) 13.0 - 17.5 g/dL [facility] Hct 24.3(L) 38.9 - 50.3 % [facility] Plt 96(L) 150 - 400 K/cumm [facility] MPV 12.4(H) 9.1 - 12.3 fL [facility] RBC 2.63(L) 4.30 - 5.80 M/cumm [facility] MCV 92.4 81.3 - 96.4 fL [facility] MCH 31.6 27.1 - 33.3 pg [facility] MCHC 34.2 32.3 - 35.7 g/dL [facility] RDW CV 16.1(H) 11.1 - 14.9 % [facility] RDW SD 53.3(H) 35.7 - 48.1 fL [facility] NRBC abs 0.08(H) 0.00 - 0.01 K/cumm [facility] Blood 02/24/2025 8:06 PM CDT 02/24/2025 8:22 PM CDT us Edi Olvera MD LAB BLOOD ORDERABLES Asya l Result Performing Organization Address [facility]/ZIP Co de Phone Number [facility] Department [place] [address] * (ABNORMAL) Magnesium (02/24/2025 8:06 PM CDT) Magnesium 2.9(H) 1.4 - 2.5 mg/dL Blood 02/24/2025 8:06 PM CDT 02/24/2025 8:22 PM CDT us Edi Olvera MD LAB BLOOD ORDERABLES Asya l Result [facility] Department [place] [address] * (ABNORMAL) Comprehensive metabolic panel (02/24/2025 8:06 PM CDT) Sodium 132(L) 135 - 145 mmol/L Potassium, pl 4.9 3.3 - 4.9 mmol/L [facility] Chloride 97 97 - 110 mmol/L [facility] CO2 25 22 - 32 mmol/L [facility] Anion gap 10 2 - 15 mmol/L [facility] BUN 80(H) 6 - 25 mg/dL [facility] Creatinine 1.09 0.80 - 1.30 mg/dL [facility] Glucose 271(H) 70 - 199 mg/dL [facility] Comment: Interpretive Data Fasting glucose >/= 126 [...] 2022. Calcium 8.4(L) 8.5 - 10.3 mg/dL [facility] Bilirubin, total 0.5 0.1 - 1.2 mg/dL [facility] Protein, pl 6.4(L) 6.5 - 8.5 g/dL [facility] Albumin 2.8(L) 3.5 - 5.0 g/dL [facility] Alk phos 69 40 - 130 Units/L [facility] ALT 45 7 - 55 Units/L [facility] AST 46 10 - 50 Units/L [facility] Blood 02/24/2025 8:06 PM CDT 02/24/2025 8:22 PM CDT Edi Olvera MD LAB BLOOD ORDERABLES Asya l Result Performing Organization Address City/[facility] Co de Phone Number [facility] [employer] [place] [address] * (ABNORMAL) POCT glucose (02/24/2025 8:05 PM CDT) Glucose, POC 283(H) 70 - 199 mg/dL Blood 02/24/2025 8:05 PM CDT 02/24/2025 8:05 PM CDT us Edi Olvera MD LAB POCT ORDERABLES - DEV ICE Final Result Performing Organization Address [facility] Co de Phone Number [facility] [employer] [place] [address] * POCT glucose (02/24/2025 5:56 PM CDT) Glucose, POC 180 70 - 199 mg/dL Blood 02/24/2025 5:56 PM CDT 02/24/2025 5:56 PM CDT us Edi Olvera MD LAB POCT ORDERABLES - DEV ICE Final Result Performing Organization Address [facility] Co de Phone Number [facility] [employer] [place] [address] * POCT glucose (02/24/2025 12:31 PM CDT) Glucose, POC 182 70 - 199 mg/dL Blood 02/24/2025 12:3 1 PM CDT 02/24/2025 12:31 PM CDT us Edi Olvera MD LAB POCT ORDERABLES - DEV ICE Final Result Performing Organization Address [facility] Co de Phone Number [facility] [place] [address] * XR Chest 1 View (02/24/2025 9:46 [...] K/cumm Hgb 8.4(L) 13.0 - 17.5 g/dL [facility] Hct 25.2(L) 38.9 - 50.3 % [facility] Plt 85(L) 150 - 400 K/cumm [facility] MPV 11.8 9.1 - 12.3 fL [facility] RBC 2.72(L) 4.30 - 5.80 M/cumm [facility] MCV 92.6 81.3 - 96.4 fL [facility] MCH 30.9 27.1 - 33.3 pg [facility] MCHC 33.3 32.3 - 35.7 g/dL [facility] RDW CV 15.9(H) 11.1 - 14.9 % [facility] RDW SD 53.0(H) 35.7 - 48.1 fL [facility] NRBC abs 0.04(H) 0.00 - 0.01 K/cumm [facility] Blood 02/24/2025 8:19 AM CDT 02/24/2025 9:25 AM CDT us Edi Olvera MD LAB BLOOD ORDERABLES Asya l Result [facility] Department [place] [employer] [place] [address] * POCT glucose (02/24/2025 7:37 AM CDT) [facility] Glucose, POC 172 70 - 199 mg/dL Blood 02/24/2025 7:37 AM CDT 02/24/2025 7:37 AM CDT us Edi Olvera MD LAB POCT ORDERABLES - DEV ICE Final Result [facility] Department [place] [address] * Calcium, ionized, whole blood (02/23/2025 9:17 PM CDT) Ca, ionized, bld 4.68 4.50 - 5.10 mg/dL Blood 02/23/2025 9:17 PM CDT 02/23/2025 9:27 PM CDT Edi Olvera MD LAB BLOOD ORDERABLES Asya l Result Performing Organization Address City/[facility]/ZIP Co de Phone Number [facility] Department [place] [employer] [place] [address] * eGFR (02/23/2025 9:17 PM CDT) Pathologist [facility] eGFR 73 >=60 mL/min/1. 73 m2 Comment: [...] ORDERABLES Asya l Result Performing Organization Address City/[facility]/ZIP Co de Phone Number [facility] Department [place] [address] * (ABNORMAL) CBC without differential (02/23/2025 9:17 PM CDT) WBC 12.00(H) 3.80 - 9.90 K/cumm Hgb 9.0(L) 13.0 - 17.5 g/dL [facility] Hct 26.2(L) 38.9 - 50.3 % [facility] Plt 83(L) 150 - 400 K/cumm [facility] MPV 11.5 9.1 - 12.3 fL [facility] RBC 2.83(L) 4.30 - 5.80 M/cumm [facility] MCV 92.6 81.3 - 96.4 fL [facility] MCH 31.8 27.1 - 33.3 pg [facility] MCHC 34.4 32.3 - 35.7 g/dL [facility] RDW CV 15.6(H) 11.1 - 14.9 % [facility] RDW SD 52.4(H) 35.7 - 48.1 fL [facility] NRBC abs 0.04(H) 0.00 - 0.01 K/cumm [facility] Blood 02/23/2025 9:17 PM CDT 02/23/2025 9:30 PM CDT us Edi Olvera MD LAB BLOOD ORDERABLES Asya l Result Performing Organization Address City/[facility]/ZIP Co de Phone Number [facility] [place] [employer] [place] [address] * (ABNORMAL) Magnesium (02/23/2025 9:17 PM CDT) Pathologist [facility] Magnesium 3.0(H) 1.4 - 2.5 mg/dL Blood 02/23/2025 9:17 PM CDT 02/23/2025 9:30 PM CDT us Edi Olvera MD LAB BLOOD ORDERABLES Asya l Result [facility] [place] [employer] [address] * (ABNORMAL) Comprehensive metabolic panel (02/23/2025 9:17 PM CDT) Sodium 136 135 - 145 mmol/L Potassium, pl 4.9 3.3 - 4.9 mmol/L [facility] Chloride 102 97 - 110 mmol/L [facility] CO2 27 22 - 32 mmol/L [facility] Anion gap 7 2 - 15 mmol/L [facility] BUN 84(H) 6 - 25 mg/dL [facility] Creatinine 1.09 0.80 - 1.30 mg/dL [facility] Glucose 173 70 - 199 mg/dL [facility] Comment: Interpretive Data Fasting glucose >/= 126 [...] 2022. Calcium 8.3(L) 8.5 - 10.3 mg/dL [facility] Bilirubin, total 0.5 0.1 - 1.2 mg/dL [facility] Protein, pl 6.0(L) 6.5 - 8.5 g/dL [facility] Albumin 2.4(L) 3.5 - 5.0 g/dL [facility] Alk phos 67 40 - 130 Units/L [facility] ALT 46 7 - 55 Units/L [facility] AST 46 10 - 50 Units/L [facility] Blood 02/23/2025 9:17 PM CDT 02/23/2025 9:30 PM CDT us Edi Olvera MD LAB BLOOD ORDERABLES Asya l Result [facility] [place] [address] * POCT glucose (02/23/2025 8:33 PM CDT) Glucose, POC 198 70 - 199 mg/dL Blood 02/23/2025 8:33 PM CDT 02/23/2025 8:33 PM CDT us Edi Olvera MD LAB POCT ORDERABLES - DEV ICE Final Result Performing Organization Address City/[facility]/ZIP Co de Phone Number [facility] [place] [address] * (ABNORMAL) POCT glucose (02/23/2025 4:25 PM CDT) [facility] Signature Glucose, POC 225(H) 70 - 199 mg/dL Blood 02/23/2025 4:25 PM CDT 02/23/2025 4:25 PM CDT us Edi Olvera MD LAB POCT ORDERABLES - DEV ICE Final Result Performing Organization Address [facility] Co de Phone Number [facility] [place] [address] * (ABNORMAL) POCT glucose (02/23/2025 12:07 PM CDT) [facility] Signature Glucose, POC 251(H) 70 - 199 mg/dL Blood 02/23/2025 12:0 7 PM CDT 02/23/2025 12:07 PM CDT us Edi Olvera MD LAB POCT ORDERABLES - DEV ICE Final Result Performing Organization Address City/[facility] Co de Phone Number [facility] [place] [address] * (ABNORMAL) Iron profile w/ IBC (02/23/2025 8:09 AM CDT) [facility] Iron 28(L) 50 - 150 mcg/dL TIBC 229(L) 250 - 400 mcg/dL [facility] Transferrin saturation 12(L) 20 - 50 % [facility] Blood 02/23/2025 8:09 AM CDT 02/23/2025 8:17 AM CDT Edi Olvera MD LAB BLOOD ORDERABLES Asya l Result Performing Organization Address [facility] Co de Phone Number [facility] Department [place] [address] * (ABNORMAL) CBC without differential (02/23/2025 8:09 AM CDT) [facility] WBC 13.25(H) 3.80 - 9.90 K/cumm Hgb 10.2(L) 13.0 - 17.5 g/dL [facility] Hct 29.8(L) 38.9 - 50.3 % [facility] Plt 92(L) 150 - 400 K/cumm [facility] MPV 12.0 9.1 - 12.3 fL [facility] RBC 3.20(L) 4.30 - 5.80 M/cumm [facility] MCV 93.1 81.3 - 96.4 fL [facility] MCH 31.9 27.1 - 33.3 pg [facility] MCHC 34.2 32.3 - 35.7 g/dL [facility] RDW CV 15.6(H) 11.1 - 14.9 % [facility] RDW SD 52.9(H) 35.7 - 48.1 fL [facility] NRBC abs 0.03(H) 0.00 - 0.01 K/cumm [facility] Blood 02/23/2025 8:09 AM CDT 02/23/2025 8:17 AM CDT Edi Olvera MD LAB BLOOD ORDERABLES Asya ma Result Performing Organization Address [facility]/ZIP Co de Phone Number [facility] [place] [address] * Folate (02/23/2025 8:09 AM CDT) [facility] Folic acid 13.1 >=5.0 ng/mL Blood 02/23/2025 8:09 AM CDT 02/23/2025 8:17 AM CDT us Edi Olvera MD LAB BLOOD [place] [address] * Ferritin (02/23/2025 8:09 AM CDT) [facility] Ferritin 143 30 - 400 ng/mL Blood 02/23/2025 8:09 AM CDT 02/23/2025 8:17 AM CDT us Edi Olvera MD LAB BLOOD ORDERABLES Asya l Result [facility] Department [place] [address] * (ABNORMAL) Vitamin B12 (02/23/2025 8:09 AM CDT) [facility] Vitamin B12 >2,000(H) 230 - 1,250 pg/mL Blood 02/23/2025 8:09 AM CDT 02/23/2025 8:17 AM CDT us Edi Olvera MD LAB BLOOD ORDERABLES Asya l Result [facility] [place] [address] * POCT glucose (02/23/2025 8:08 AM CDT) Glucose, POC 167 70 - 199 mg/dL Blood 02/23/2025 8:08 AM CDT 02/23/2025 8:08 AM CDT Edi Olvera MD LAB POCT ORDERABLES - DEV ICE Final Result Performing Organization Address [facility] de Phone Number [facility] [place] [employer] [place] [address] * eGFR (02/23/2025 6:17 AM CDT) Pathologist [facility] eGFR 69 >=60 mL/min/1. 73 m2 Comment: [...] ORDERABLES Asya l Result Performing Organization Address [facility] Co de Phone Number [facility] [place] [employer] [place] [address] * (ABNORMAL) Magnesium (02/23/2025 6:17 AM CDT) Pathologist [facility] Magnesium 3.0(H) 1.4 - 2.5 mg/dL Blood 02/23/2025 6:17 AM CDT 02/23/2025 6:41 AM CDT Edi Olvera MD LAB BLOOD ORDERABLES Asya l Result Performing Organization Address [facility] de Phone Number [facility] [place] [address] * Blood gas, venous (02/23/2025 6:17 AM CDT) pH, Venous 7.40 7.32 - 7.43 PCO2, Venous 46 40 - 50 mmHg [facility] PO2, Venous 39 mmHg [facility] Comment: Interpretive Data No Reference Range Established Current Interpretive Data was last revised on 2018. HCO3 Venous, Calculated 29 20 - 30 mmol/L [facility] BE, venous 3 mmol/L [facility] Comment: Interpretive Data No Reference Range Established Current Interpretive Data was last revised on 2018. Blood 02/23/2025 6:17 AM CDT 02/23/2025 6:31 AM CDT Edi Olvera MD LAB BLOOD ORDERABLES Asya l Result Performing Organization Address [facility] de Phone Number [facility] [place] [address] * (ABNORMAL) Comprehensive metabolic panel (02/23/2025 6:17 AM CDT) Sodium 132(L) 135 - 145 mmol/L Potassium, pl 4.6 3.3 - 4.9 mmol/L [facility] Chloride 98 97 - 110 mmol/L [facility] CO2 28 22 - 32 mmol/L [facility] Anion gap 6 2 - 15 mmol/L [facility] BUN 81(H) 6 - 25 mg/dL [facility] Creatinine 1.13 0.80 - 1.30 mg/dL [facility] Glucose 191 70 - 199 mg/dL [facility] Comment: Interpretive Data Fasting glucose >/= 126 [...] 2022. Calcium 8.0(L) 8.5 - 10.3 mg/dL [facility] Bilirubin, total 0.6 0.1 - 1.2 mg/dL [facility] Protein, pl 6.1(L) 6.5 - 8.5 g/dL [facility] Albumin 2.4(L) 3.5 - 5.0 g/dL [facility] Alk phos 80 40 - 130 Units/L [facility] ALT 52 7 - 55 Units/L [facility] AST 49 10 - 50 Units/L [facility] Blood 02/23/2025 6:17 AM CDT 02/23/2025 6:41 AM CDT Edi Olvera MD LAB BLOOD ORDERABLES Asya l Result Performing Organization Address City/[facility]/ZIP Co de Phone Number [facility] Department [place] [employer] [place] [address] * POCT glucose (02/23/2025 3:43 AM CDT) [facility] Signature Glucose, POC 195 70 - 199 mg/dL Blood 02/23/2025 3:43 AM CDT 02/23/2025 3:43 AM CDT us Edi Olvera MD LAB POCT ORDERABLES - DEV ICE Final Result Performing Organization Address City/[facility]/ZIP Co de Phone Number [facility] Department [place] [address] * POCT glucose (02/23/2025 12:02 AM CDT) [facility] Glucose, POC 194 70 - 199 mg/dL Blood 02/23/2025 12:0 2 AM CDT 02/23/2025 12:02 AM CDT us Edi Olvera MD LAB POCT ORDERABLES - DEV ICE Final Result Performing Organization Address [facility] Co de Phone Number [facility] [place] [address] * (ABNORMAL) CBC without differential (02/22/2025 10:18 PM CDT) [facility] WBC 12.55(H) 3.80 - 9.90 K/cumm Hgb 10.1(L) 13.0 - 17.5 g/dL [facility] Hct 30.0(L) 38.9 - 50.3 % [facility] Plt 91(L) 150 - 400 K/cumm [facility] MPV 12.2 9.1 - 12.3 fL [facility] RBC 3.22(L) 4.30 - 5.80 M/cumm [facility] MCV 93.2 81.3 - 96.4 fL [facility] MCH 31.4 27.1 - 33.3 pg [facility] MCHC 33.7 32.3 - 35.7 g/dL [facility] RDW CV 15.6(H) 11.1 - 14.9 % [facility] RDW SD 53.1(H) 35.7 - 48.1 fL [facility] NRBC abs 0.02(H) 0.00 - 0.01 K/cumm [facility] Blood 02/22/2025 10:1 8 PM CDT 02/22/2025 10:39 PM CDT us Edi Olvera MD LAB BLOOD ORDERABLES Asya l Result [facility] [place] [address] * (ABNORMAL) Blood gas, venous (02/22/2025 10:18 PM CDT) pH, Venous 7.35 7.32 - 7.43 PCO2, Venous 52(H) 40 - 50 mmHg [facility] PO2, Venous 41 mmHg [facility] Comment: Interpretive Data No Reference Range Established Current Interpretive Data was last revised on 2018. HCO3 Venous, Calculated 30 20 - 30 mmol/L [facility] BE, venous 2 mmol/L [facility] Comment: Interpretive Data No Reference Range Established Current Interpretive Data was last revised on 2018. Blood 02/22/2025 10:1 8 PM CDT 02/22/2025 10:31 PM CDT Edi Olvera MD LAB BLOOD ORDERABLES Asya l Result [facility] [place] [employer] [place] [address] * POCT glucose (02/22/2025 9:47 PM CDT) Glucose, POC 159 70 - 199 mg/dL Blood 02/22/2025 9:47 PM CDT 02/22/2025 9:47 PM CDT us Edi Olvera MD LAB POCT ORDERABLES - DEV ICE Final Result Performing Organization Address City/[facility] Co de Phone Number [facility] [employer] [place] [address] * (ABNORMAL) POCT glucose (02/22/2025 4:32 PM CDT) Glucose, POC 208(H) 70 - 199 mg/dL Blood 02/22/2025 4:32 PM CDT 02/22/2025 4:32 PM CDT us Edi Olvera MD LAB POCT ORDERABLES - DEV ICE Final Result Performing Organization Address [facility] Co de Phone Number [facility] Department [place] [address] * (ABNORMAL) CBC without differential (02/22/2025 3:32 PM CDT) Pathologist [facility] WBC 11.82(H) 3.80 - 9.90 K/cumm Hgb 10.3(L) 13.0 - 17.5 g/dL [facility] Hct 30.6(L) 38.9 - 50.3 % [facility] Plt 100(L) 150 - 400 K/cumm [facility] MPV 12.3 9.1 - 12.3 fL [facility] RBC 3.27(L) 4.30 - 5.80 M/cumm [facility] MCV 93.6 81.3 - 96.4 fL [facility] MCH 31.5 27.1 - 33.3 pg [facility] MCHC 33.7 32.3 - 35.7 g/dL [facility] RDW CV 15.5(H) 11.1 - 14.9 % [facility] RDW SD 53.1(H) 35.7 - 48.1 fL [facility] NRBC abs 0.03(H) 0.00 - 0.01 K/cumm [facility] Blood 02/22/2025 3:32 PM CDT 02/22/2025 3:42 PM CDT us Edi Olvera MD LAB BLOOD ORDERABLES Asya l Result [facility] [place] [address] * XR Chest 1 View (02/22/2025 1:10 [...] 13.0 sec INR 1.29(H) 0.90 - 1.20 [facility] Comment: Interpretive data Oral anticoagulant therapeutic ranges: Venous thromboembolism prophylaxis or treatment: 2.0-3.0 CARDIOLOGY Standard range: 2.0-3.0 High-intensity range: 2.5-3.5 Refer to indication-specific guidelines for appropriate target ranges for prosthetic heart valve replacement. Current interpretive data was last revised on 2019. Blood 02/22/2025 12:0 2 PM CDT 02/22/2025 12:25 PM CDT Edi Olvera MD LAB BLOOD ORDERABLES Asya l Result [facility] Department [place] [address] * POCT glucose (02/22/2025 12:01 PM CDT) [facility] Glucose, POC 188 70 - 199 mg/dL Blood 02/22/2025 12:0 1 PM CDT 02/22/2025 12:01 PM CDT Result [facility] Edi Olvera MD LAB POCT ORDERABLES - DEV ICE Final Result Performing Organization Address City/[facility]/ZIP Co de Phone Number [facility] Department [place] [address] * Pneumonia PCR Sputum (02/22/2025 8:52 AM CDT) [facility] C. pneumoniae DNA Not Detected Not Detected Legionella pneumophila DNA Not Detected Not Detected [facility] M. pneumoniae DNA Not Detected Not Detected [facility] Adenovirus DNA Not Detected Not Detected [facility] Coronavirus (229E, OC43, HKU1, NL63) RNA Not Detected Not Detected [facility] Metapneumovirus RNA Not Detected Not Detected [facility] Rhinovirus/Enterov irus RNA Not Detected Not Detected [facility] Influenza A RNA Not Detected Not Detected [facility] Influenza B RNA Not Detected Not Detected [facility] Parainfluenza virus (1-4) RNA Not Detected Not Detected [facility] RSV RNA Not Detected Not Detected [facility] Sputum 02/22/2025 8:52 AM CDT 02/22/2025 10:27 AM CDT Narrative [facility] - 02/22/2025 11:51 AM CDT The [employer] [...] of this assay have been determined by [facility]. Current interpretive data was last revised on 2024. us Hood Pacheco MD LAB MICROBIOLOGY - GENERAL ORDER MICHELLE Final Result [facility] Department of Laboratories [place], [place] [id number] * (ABNORMAL) Pneumonia PCR with aerobic culture and Gram stain Sputum (02/22/2025 8:52 AM CDT) Direct Specimen Exam Molecular Analysis: 10^6 copies/mL Streptococcus pneumoniae Correlation of molecular analysis with final culture results is recommended. Direct Specimen Exam Stain: Few polymorphonuclear leukocytes seen. Few squamous epithelial cells seen. Rare mixed bacterial janet seen on Gram stain. [facility] Report Final Report: Growth indicates upper respiratory janet. (.) [facility] Organism GROWTH INDICATES UPPER RESPIRATORY JANET. [facility] Sputum 02/22/2025 8:52 AM CDT 02/22/2025 9:52 AM CDT Narrative [facility] - 02/24/2025 10:18 AM CDT When rapid molecular testing results are reported, testing completed using the [employer] Pneumonia Panel. This molecular assay detects: Acinetobacter [...] [employer] Pneumonia Panel is cleared by the [place] Food and Drug Administration and its performance characteristics have been confirmed by the [facility]. The performance of the [employer] Pneumonia Panel has not been established for monitoring treatment of infection and bacterial nucleic acids may persist independent of organism viability. Hood Pacheco MD LAB MICROBIOLOGY - GENERAL ORDER MICHELLE Final Result [facility] Department [place] [address] * C. difficile testing Stool (02/22/2025 8:52 AM CDT) [facility] Result Negative Negative Toxin Result Negative Negative [facility] C. diff result Negative, free toxin Negative, free toxin [facility] C. diff interp Negative for toxigenic Clostridioides (Clostridium) difficile. Analysis was performed using a glutamate dehydrogenase antigen detection assay combined with a C. difficile toxin detection assay. [facility] Stool 02/22/2025 8:52 AM CDT 02/22/2025 9:56 AM CDT Divine Ventura NP LAB MICROBIOLOGY - GENERAL ORD ERABLES Final Result [facility] [place] [address] * Norovirus PCR Stool (02/22/2025 8:52 AM CDT) [facility] Norovirus GI RNA Not Detected Not Detected [facility] Norovirus GII RNA Not Detected Not Detected [facility] Comment: Interpretive data: Testing performed at the [facility] using the [employer] Xpert Norovirus Assay. This assay uses nucleic acid amplification to detect RNA from norovirus. This test is cleared by the [place] Food and Drug Administration for unformed stool [...] ORD ERABLES Final Result Performing Organization Address City/[facility] Co de Phone Number [facility] [place] [address] [facility] * Infection Prevention VRE Culture Stool (02/22/2025 8:47 AM CDT) Report Final Report: Negative Stool 02/22/2025 8:47 AM CDT 02/22/2025 12:33 PM CDT Narrative [facility] - 02/24/2025 3:34 PM CDT Surveillance culture for Infection Prevention purposes only; results indicate colonization, not infection requiring treatment. Testing performed by [facility] ([phone]). Edi Olvera MD LAB MICROBIOLOGY - GENERA L ORDERABLES Final Result Performing Organization Address [facility] Co de Phone Number [facility] Department [place] [address] * POCT glucose (02/22/2025 8:15 AM CDT) Glucose, POC 126 70 - 199 mg/dL Blood 02/22/2025 8:15 AM CDT 02/22/2025 8:15 AM CDT Edi Olvera MD LAB POCT ORDERABLES - DEV ICE Final Result Performing Organization Address [facility] Co de Phone Number [facility] [place] [address] * Lactate (02/22/2025 6:21 AM CDT) Lactate 1.6 0.7 - 2.0 mmol/L Blood 02/22/2025 6:21 AM CDT 02/22/2025 6:45 AM CDT Hood Pacheco MD LAB BLOOD ORDERABLES Final Resul t [facility] [place] [address] * (ABNORMAL) eGFR (02/22/2025 6:21 AM CDT) [...] LAB BLOOD ORDERABLES Final Resul t [facility] [place] [address] * HIV 1/2 Antibody plus p24 Antigen Blood (02/22/2025 6:21 AM CDT) HIV 1/2 ab + p24 ag Nonreactive [...] ORDER MICHELLE Final Result Performing Organization Address City/[facility] Co de Phone Number [facility] [employer] [place] [address] * Hepatitis C antibody Blood (02/22/2025 6:21 AM CDT) Hep C Ab Nonreactive Nonreactive Comment:Antibodies to HCV no t detected. Does NOT exclude the possibility of recent exposure to HCV. Current interpretive data was last revised on 22 Blood 02/22/2025 6:21 AM CDT 02/22/2025 7:57 AM CDT Hood Pacheco MD LAB MICROBIOLOGY - GENERAL ORDER MICHELLE Final Result Performing Organization Address [facility] [place] [address] * RPR Blood (02/22/2025 6:21 AM CDT) RPR Nonreactive Nonreactive Blood 02/22/2025 6:21 AM CDT 02/22/2025 6:46 AM CDT Hood Pacheco MD LAB MICROBIOLOGY - GENERAL ORDER MICHELLE Final Result Performing Organization Address City/[facility] [place] [address] * Hepatitis B Surface Antigen Blood (02/22/2025 6:21 AM CDT) HepBsAg Nonreactive Nonreactive Blood 02/22/2025 6:21 AM CDT 02/22/2025 7:57 AM CDT Hood Pacheco MD LAB MICROBIOLOGY - GENERAL ORDER MICHELLE Final Result Performing Organization Address [facility] Co de Phone Number [facility] Department [place] [address] * (ABNORMAL) CBC without differential (02/22/2025 6:21 AM CDT) WBC 11.02(H) 3.80 - 9.90 K/cumm Hgb 10.1(L) 13.0 - 17.5 g/dL [facility] Hct 30.2(L) 38.9 - 50.3 % [facility] Plt 82(L) 150 - 400 K/cumm [facility] MPV 11.9 9.1 - 12.3 fL [facility] RBC 3.23(L) 4.30 - 5.80 M/cumm [facility] MCV 93.5 81.3 - 96.4 fL [facility] MCH 31.3 27.1 - 33.3 pg [facility] MCHC 33.4 32.3 - 35.7 g/dL [facility] RDW CV 15.5(H) 11.1 - 14.9 % [facility] RDW SD 52.8(H) 35.7 - 48.1 fL [facility] NRBC abs 0.02(H) 0.00 - 0.01 K/cumm [facility] Blood 02/22/2025 6:21 AM CDT 02/22/2025 7:03 AM CDT Hood Pacheco MD LAB BLOOD ORDERABLES Final Resul t Performing Organization Address City/[facility]/ZIP Co de Phone Number [facility] Department [place] [address] * (ABNORMAL) Blood gas, venous (02/22/2025 6:21 AM CDT) pH, Venous 7.35 7.32 - 7.43 PCO2, Venous 51(H) 40 - 50 mmHg [facility] PO2, Venous 39 mmHg [facility] Comment: Interpretive Data No Reference Range Established Current Interpretive Data was last revised on 2018. HCO3 Venous, Calculated 29 20 - 30 mmol/L [facility] BE, venous 2 mmol/L [facility] Comment: Interpretive Data No Reference Range Established Current Interpretive Data was last revised on 2018. Blood 02/22/2025 6:21 AM CDT 02/22/2025 6:40 AM CDT us Edi Olvera MD LAB BLOOD ORDERABLES Asya l Result [facility] [place] [address] * (ABNORMAL) Comprehensive metabolic panel (02/22/2025 6:21 AM CDT) Sodium 131(L) 135 - 145 mmol/L Potassium, pl 4.4 3.3 - 4.9 mmol/L [facility] Chloride 98 97 - 110 mmol/L [facility] CO2 30 22 - 32 mmol/L [facility] Anion gap 3 2 - 15 mmol/L [facility] BUN 72(H) 6 - 25 mg/dL [facility] Creatinine 1.35(H) 0.80 - 1.30 mg/dL [facility] Glucose 113 70 - 199 mg/dL [facility] Comment: Interpretive Data Fasting glucose >/= 126 [...] 2022. Calcium 8.0(L) 8.5 - 10.3 mg/dL [facility] Bilirubin, total 0.6 0.1 - 1.2 mg/dL [facility] Protein, pl 5.8(L) 6.5 - 8.5 g/dL [facility] Albumin 2.4(L) 3.5 - 5.0 g/dL [facility] Alk phos 57 40 - 130 Units/L [facility] ALT 53 7 - 55 Units/L [facility] AST 57(H) 10 - 50 Units/L [facility] Blood 02/22/2025 6:21 AM CDT 02/22/2025 7:08 AM CDT Hood Pacheco MD LAB BLOOD ORDERABLES Final Resul t Performing Organization Address [facility] Co de Phone Number [facility] [place] [address] * (ABNORMAL) Lactate (02/22/2025 12:55 AM CDT) Lactate 2.6(H) 0.7 - 2.0 mmol/L Blood 02/22/2025 12:5 5 AM CDT 02/22/2025 1:16 AM CDT Hood Pacheco MD LAB BLOOD ORDERABLES Final Resul t Performing Organization Address [facility] de Phone Number [facility] [place] [address] * Oxyhemoglobin, central venous (02/21/2025 8:07 PM CDT) Oxyhemoglobin, CV 77.9 % Comment: Interpretive Data No reference range established. Current interpretive data was last revised 2020. Blood 02/21/2025 8:07 PM CDT 02/21/2025 8:16 PM CDT Edi Olvera MD LAB BLOOD ORDERABLES Asya l Result Performing Organization Address [facility] Co de Phone Number [facility] Department [place] [address] * (ABNORMAL) Lactate (02/21/2025 8:07 PM CDT) Lactate 2.5(H) 0.7 - 2.0 mmol/L Blood 02/21/2025 8:07 PM CDT 02/21/2025 8:18 PM CDT us Edi Olvera MD LAB BLOOD ORDERABLES Asya l Result Performing Organization Address [facility] Co de Phone Number [facility] [place] [address] * (ABNORMAL) eGFR (02/21/2025 8:07 PM CDT) Pathologist [facility] eGFR 53(L) >=60 mL/min/1. 73 m2 Comment: [...] ORDERABLES Final Resul t Performing Organization Address City/[facility]/ZIP Co de Phone Number [facility] Department [place] [address] * (ABNORMAL) CBC without differential (02/21/2025 8:07 PM CDT) [facility] WBC 14.26(H) 3.80 - 9.90 K/cumm Hgb 11.1(L) 13.0 - 17.5 g/dL [facility] Hct 33.3(L) 38.9 - 50.3 % [facility] Plt 107(L) 150 - 400 K/cumm [facility] MPV 12.6(H) 9.1 - 12.3 fL [facility] RBC 3.51(L) 4.30 - 5.80 M/cumm [facility] MCV 94.9 81.3 - 96.4 fL [facility] MCH 31.6 27.1 - 33.3 pg [facility] MCHC 33.3 32.3 - 35.7 g/dL [facility] RDW CV 15.6(H) 11.1 - 14.9 % [facility] RDW SD 53.3(H) 35.7 - 48.1 fL [facility] NRBC abs 0.02(H) 0.00 - 0.01 K/cumm [facility] Blood 02/21/2025 8:07 PM CDT 02/21/2025 8:18 PM CDT us Hood Pacheco MD LAB BLOOD ORDERABLES Final Resul t [facility] Department [place] [address] * (ABNORMAL) Comprehensive metabolic panel (02/21/2025 8:07 PM CDT) [facility] Sodium 127(L) 135 - 145 mmol/L Potassium, pl 4.6 3.3 - 4.9 mmol/L [facility] Chloride 95(L) 97 - 110 mmol/L [facility] CO2 27 22 - 32 mmol/L [facility] Anion gap 5 2 - 15 mmol/L [facility] BUN 66(H) 6 - 25 mg/dL [facility] Creatinine 1.41(H) 0.80 - 1.30 mg/dL [facility] Glucose 182 70 - 199 mg/dL [facility] Comment: Interpretive Data Fasting glucose >/= 126 [...] 2022. Calcium 8.0(L) 8.5 - 10.3 mg/dL [facility] Bilirubin, total 0.8 0.1 - 1.2 mg/dL [facility] Protein, pl 6.3(L) 6.5 - 8.5 g/dL [facility] Albumin 2.6(L) 3.5 - 5.0 g/dL [facility] Alk phos 57 40 - 130 Units/L [facility] ALT 48 7 - 55 Units/L [facility] AST 54(H) 10 - 50 Units/L [facility] Blood 02/21/2025 8:07 PM CDT 02/21/2025 8:18 PM CDT us Hood Pacheco MD LAB BLOOD ORDERABLES Final Resul t [facility] Department [place] [address] * POCT glucose (02/21/2025 8:06 PM CDT) [facility] Signature Glucose, POC 166 70 - 199 mg/dL Blood 02/21/2025 8:06 PM CDT 02/21/2025 8:06 PM CDT us Edi Olvera MD LAB POCT ORDERABLES - DEV ICE Final Result Performing Organization Address City/[facility]/ZIP Co de Phone Number [facility] [place] [address] * Infection Prevention Roberto auris PCR, surveillance Axilla/Groin (02/21/2025 6:52 PM CDT) Roberto auris DNA Not Detected Not Detected [facility] Comment: Interpretive Data Testing performed by [facility] using the Balta[employer] lakeshia 6800 Roberto auris assay. This assay detects DNA from Roberto auris using Real-Time PCR. This assay is laboratory developed and is not cleared by the [facility] Food and Drug Administration. The performance characteristics have been verified by the [facility]. Axilla/Groin 02/21/2025 6:52 PM CDT 02/21/2025 7:08 PM CDT Espinoza Salazar MD LAB MICROBIOLOGY - GENERAL ORDER MICHELLE Final Result Performing Organization Address [facility] Co de Phone Number [facility] [place] [address] [facility] * POCT glucose (02/21/2025 3:34 PM CDT) Pathologist [facility] Glucose, POC 133 70 - 199 mg/dL Blood 02/21/2025 3:34 PM CDT 02/21/2025 3:34 PM CDT us Edi Olvera MD LAB POCT ORDERABLES - DEV ICE Final Result Performing Organization Address City/[facility] Co de Phone Number [facility] [employer] [place] [address] * Oxyhemoglobin, central venous (02/21/2025 1:09 PM CDT) Oxyhemoglobin, CV 80.5 % Comment: Interpretive Data No reference range established. Current interpretive data was last revised 2020. Blood 02/21/2025 1:09 PM CDT 02/21/2025 1:30 PM CDT Hood Pacheco MD LAB BLOOD ORDERABLES Final Resul t Performing Organization Address [facility] de Phone Number [facility] [place] [address] * (ABNORMAL) Lactate (02/21/2025 1:09 PM CDT) Lactate 2.3(H) 0.7 - 2.0 mmol/L Blood 02/21/2025 1:09 PM CDT 02/21/2025 1:37 PM CDT Hood Pacheco MD LAB BLOOD ORDERABLES Final Resul t Performing Organization Address [facility] Phone Number [facility] [employer] [place] [address] * (ABNORMAL) Blood gas, venous (02/21/2025 1:09 PM CDT) pH, Venous 7.26(L) 7.32 - 7.43 PCO2, Venous 65(H) 40 - 50 mmHg [facility] PO2, Venous 55 mmHg [facility] Comment: Interpretive Data No Reference Range Established Current Interpretive Data was last revised on 2018. HCO3 Venous, Calculated 30 20 - 30 mmol/L [facility] BE, venous 1 mmol/L [facility] Comment: Interpretive Data No Reference Range Established Current Interpretive Data was last revised on 2018. Blood 02/21/2025 1:09 PM CDT 02/21/2025 1:30 PM CDT Hood Pacheco MD LAB BLOOD ORDERABLES Final Resul t Performing Organization Address [facility] de Phone Number [facility] [place] [address] * CT Chest PE (CTA) Abdomen Pelvis [...] ORDERABLES - DEVICE Fin al Result [facility] [place] [address] * TRANSTHORACIC ECHO (TTE) COMPLETE W DOPPLER/CF W CONTRAST (02/21/2025 10:20 AM CDT) Anatomical Region Laterality Modality Ultrasound 02/21/2025 9:10 AM CDT Narrative 02/21/2025 1:03 PM CDT [facility] [place] [address] Transthoracic Echocardiographic Report Patient Name: JUD MACE L : 1955 (70y ) Gender: M Study Date: 02/21/2025 09:10:55 AM Ht(Inch): 73 Wt(Lb): 261.02 BSA: 2.47 Pre Sales Systems Engineer: Martha Escobar RDCS, [facility] Location: [id number] Order Provider: DIVINE VENTURA BMI: 34.43 BP: 123 / 61 Ref Provider: CASEY VENTURAY - PROCEDURES: Echocardiographic Report: Transthoracic complete echo [...] Note De Ramya Lake MD - 02/21/2025 [facility] [place] [address] Transthoracic Echocardiographic Report Patient Name: JUD MACE L : 1955 (70y ) Gender: M Study Date: 02/21/2025 09:10:55 AM Ht(Inch): 73 Wt(Lb): 261.02 BSA: 2.47 Pre Sales Systems Engineer: Martha Escobar RDCS, [facility] Location: [id number] Order Provider:DIVINE VENTURA BMI: 34.43 BP: 123 [...] Vel3.8 m/s LV Thickness Ratio 1.0 AI JKM013.44 msec RWT 0.35 MV E Peak Vel0.9 m/s [ 0.6 - 1.3 ] EDV Mod BP 231.00 ml [ 62.00 - 150.00 ] MV A Peak Vel0.7 m/s [ 1.0 - 1.2 ] LV EDV Index 93.52 ml/m2 MV E/A1.2 ratio [ 0.8 - 1.5 ] ESV Mod BP 115.00 ml [ 21.00 - 61.00 ] MV Decel Pzdb654.58 msec [ 104.00 - 258.00 ] EF [...] cm [ 1.71 - 5.00 ] RA Mvgprv17.39 ml RA Volume Index28.50 ml/m2 AoR Diam 2D 3.98 cm [ 3.10 - 3.70 ] Ao Root Index 1.61 cm/m2 [ 1.00 - 2.00 ] Asc Ao Diam 2D3.42 cm Asc Ao Index1.38 cm/m2 Electronically Signed By: Ramya Morris MD 02/21/2025 1:02:41 PM CDT [employer] - Resting us Divine Ventura NP CV ECHO PROCEDURES Final Resul t * POCT glucose (02/21/2025 7:28 AM CDT) [facility] Glucose, POC 85 70 - 199 mg/dL Blood 02/21/2025 7:28 AM CDT 02/21/2025 7:28 AM CDT us Hood Pacheco MD LAB POCT ORDERABLES - DEVICE Fin al Result Performing Organization Address City/State/[facility] Co de Phone Number [facility] [place] [address] * (ABNORMAL) Lactate (02/21/2025 5:06 AM CDT) Lactate 3.4(H) 0.7 - 2.0 mmol/L Blood 02/21/2025 5:06 AM CDT 02/21/2025 5:23 AM CDT us Gisela Camejo MD LAB BLOOD ORDERABLES Final Result Performing Organization Address [facility] Co de Phone Number [facility] [place] [address] * (ABNORMAL) eGFR (02/21/2025 5:06 AM CDT) eGFR 42(L) >=60 mL/min/1. 73 m2 [...] MD LAB BLOOD ORDERABLES Final Resul t [facility] Department [place] [address] * (ABNORMAL) POC Blood Gas and Chemistries, Arterial - (02/21/2025 5:06 AM CDT) pH, Art POC 7.34(L) 7.35 - 7.45 pCO2, Art POC 49(H) 35 - 45 mmHg [facility] pO2, Art POC 78(L) 83 - 108 mmHg [facility] Na, POC 129(L) 135 - 145 mmol/L [facility] K POC 3.8 3.3 - 4.9 mmol/L [facility] Comment: Interpretive Data Not all point of care methods assess for hemolysis. Confirm with instrument and retest K+ if not consistent with clinical signs and symptoms. Current Interpretive Data was last revised on 2024. Cl, POC 97 97 - 110 mmol/L [facility] Ionized Ca, POC 4.90 4.50 - 5.10 mg/dL [facility] Glucose, POC 116 70 - 199 mg/dL [facility] Lactate, POC 3.0(H) 0.7 - 2.0 mmol/L [facility] O2Hb, Art POC 94.4 90.0 - 95.0 % [facility] COHb, Art POC 2.2 0.0 - 2.9 % [facility] MetHgb, Art POC 0.7 0.0 - 1.9 % [facility] SO2 (annalisa) arterial 97(H) 90 - 95 % [facility] Base excess, POC 0.1 mmol/L [facility] HCO3, Art POC 26 20 - 30 mmol/L [facility] H Hct, POC 35.0(L) 41.4 - 51.6 % [facility] Total Hb, POC 11.5(L) 13.8 - 17.2 g/dL [facility] Blood 02/21/2025 5:06 AM CDT 02/21/2025 5:06 AM CDT Hood Pacheco MD LAB POCT ORDERABLES - DEVICE Fin al Result Performing Organization Address [facility] de Phone Number [facility] [place] [address] * Urea nitrogen, urine, random (02/21/2025 5:06 AM CDT) Urea nitrogen, ur 656 mg/dL Comment: Interpretive Data No reference range established. Current interpretive data was last revised 2019. Urine 02/21/2025 5:06 AM CDT 02/21/2025 5:23 AM CDT Ivet Barakat MD LAB URINE ORDERABLES Final Result Performing Organization Address [facility] de Phone Number [facility] [place] [address] * Sodium, urine, random (02/21/2025 5:06 AM CDT) Sodium, ur <20 mmol/L Comment: Interpretive Data No reference range established. Current interpretive data was last revised 2019. Urine (Urine, Clean Catch) 02/21/2025 5:06 AM CDT 02/21/2025 5:23 AM CDT Ivet Barakat MD LAB URINE ORDERABLES Final Result Performing Organization Address [facility] de Phone Number [facility] [place] [address] * Creatinine, urine, random (02/21/2025 5:06 AM CDT) Creatinine Ur 93.5 mg/dL Comment: Interpretive Data No reference range established. Current interpretive data was last revised 2019. Urine 02/21/2025 5:06 AM CDT 02/21/2025 5:23 AM CDT us Ivet Barakat MD LAB URINE ORDERABLES Final Result Performing Organization Address [facility] de Phone Number [facility] Department [place] [address] * (ABNORMAL) CBC without differential (02/21/2025 5:06 AM CDT) WBC 9.6 3.8 - 9.9 K/cumm Hgb 11.4(L) 13.0 - 17.5 g/dL [facility] Hct 34.4(L) 38.9 - 50.3 % [facility] Plt 96(L) 150 - 400 K/cumm [facility] MPV 12.6(H) 9.1 - 12.3 fL [facility] RBC 3.67(L) 4.30 - 5.80 M/cumm [facility] MCV 93.7 81.3 - 96.4 fL [facility] MCH 31.1 27.1 - 33.3 pg [facility] MCHC 33.1 32.3 - 35.7 g/dL [facility] RDW CV 15.3(H) 11.1 - 14.9 % [facility] RDW SD 52.7(H) 35.7 - 48.1 fL [facility] NRBC abs 0.02(H) 0.00 - 0.01 K/cumm [facility] Blood 02/21/2025 5:06 AM CDT 02/21/2025 5:23 AM CDT us Hood Pacheco MD LAB BLOOD ORDERABLES Final Resul t Performing Organization Address [facility] Co de Phone Number [facility] Department [place] [address] * (ABNORMAL) Phosphorus (02/21/2025 5:06 AM CDT) Phosphorus, pl 4.7(H) 2.3 - 4.5 mg/dL Blood 02/21/2025 5:06 AM CDT 02/21/2025 5:26 AM CDT Hood Pacheco MD LAB BLOOD ORDERABLES Final Resul t Performing Organization Address [facility] de Phone Number [facility] [place] [address] * Magnesium (02/21/2025 5:06 AM CDT) [facility] Magnesium 2.3 1.4 - 2.5 mg/dL Blood 02/21/2025 5:06 AM CDT 02/21/2025 5:26 AM CDT Hood Pacheco MD LAB BLOOD ORDERABLES Final Resul t Performing Organization Address [facility] de Phone Number [facility] Department [place] [address] * Creatine kinase (CK), total (02/21/2025 5:06 AM CDT) [facility] CK 164 40 - 300 Units/L Blood 02/21/2025 5:06 AM CDT 02/21/2025 5:26 AM CDT Hood Pacheco MD LAB BLOOD ORDERABLES Final Resul t Performing Organization Address [facility] de Phone Number [facility] [place] [address] * (ABNORMAL) Comprehensive metabolic panel (02/21/2025 5:06 AM CDT) [facility] Sodium 129(L) 135 - 145 mmol/L Potassium, pl 4.0 3.3 - 4.9 mmol/L [facility] Chloride 92(L) 97 - 110 mmol/L [facility] CO2 25 22 - 32 mmol/L [facility] Anion gap 12 2 - 15 mmol/L [facility] BUN 56(H) 6 - 25 mg/dL [facility] Creatinine 1.71(H) 0.80 - 1.30 mg/dL [facility] Glucose 111 70 - 199 mg/dL [facility] Comment: Interpretive Data Fasting glucose >/= 126 [...] 2022. Calcium 8.8 8.5 - 10.3 mg/dL [facility] Bilirubin, total 0.9 0.1 - 1.2 mg/dL [facility] Protein, pl 6.3(L) 6.5 - 8.5 g/dL [facility] Albumin 2.5(L) 3.5 - 5.0 g/dL [facility] Alk phos 51 40 - 130 Units/L [facility] ALT 45 7 - 55 Units/L [facility] AST 59(H) 10 - 50 Units/L [facility] Blood 02/21/2025 5:06 AM CDT 02/21/2025 5:26 AM CDT us Hood Pacheco MD LAB BLOOD ORDERABLES Final Resul t [facility] Department [place] [address] * XR Chest 1 View (02/21/2025 4:26 [...] daniel POC 52(H) 40 - 50 mmHg [facility] pO2, daniel POC 48 mmHg [facility] Na, POC 128(L) 135 - 145 mmol/L [facility] K POC 4.1 3.3 - 4.9 mmol/L [facility] Comment: Interpretive Data Not all point of care methods assess for hemolysis. Confirm with instrument and retest K+ if not consistent with clinical signs and symptoms. Current Interpretive Data was last revised on 2024. Cl, POC 94(L) 97 - 110 mmol/L [facility] Ionized Ca, POC 3.98(L) 4.50 - 5.10 mg/dL [facility] Glucose, POC 150 70 - 199 mg/dL [facility] Lactate, POC 3.4(H) 0.7 - 2.0 mmol/L [facility] O2Hb, Daniel POC 77.0(L) 90.0 - 95.0 % [facility] COHb, Daniel POC 2.0 0.0 - 2.9 % [facility] MetHb, Daniel POC 0.4 0.0 - 1.9 % [facility] O2 Sat, Daniel POC (Annalisa) 79 % [facility] Base excess, POC -0.7 mmol/L [facility] HCO3, Daniel POC 26 20 - 30 mmol/L [facility] Hct, POC 35.0(L) 41.4 - 51.6 % [facility] Total Hb, POC 11.6(L) 13.8 - 17.2 g/dL [facility] Blood 02/21/2025 3:04 AM CDT 02/21/2025 3:04 AM CDT us Hood Pacheco MD LAB POCT ORDERABLES - DEVICE Fin al Result [facility] [place] [address] * AR INSJ NON-TUNNELED CENTRAL VENOUS CATH AGE 4 YR/> (02/21/2025 1:30 AM CDT) Narrative Sanjiv Bishop MD - 02/21/2025 1:30 AM CDT Sanjiv Bishop MD 02/21/2025 9:03 AM Central Line Insertion Date/Time: 02/21/2025 1:30 AM Performed by: Reema Garcia MD Authorized by: Sanjiv Bishop MD [place] Protocol: RN Notified of Procedure: yes Patient's [...] on ultrasound with flush of central line us Sanjiv Bishop MD IN CLINIC/BEDSIDE ALEJANDRA CARRIZALES Final Result * (ABNORMAL) POC Blood Gas and Chemistries, Arterial - (02/21/2025 1:08 AM CDT) pH, Art POC 7.32(L) 7.35 - 7.45 pCO2, Art POC 46(H) 35 - 45 mmHg [facility] pO2, Art POC 40(C) 83 - 108 mmHg [facility] Na, POC 127(L) 135 - 145 mmol/L [facility] K POC 4.8 3.3 - 4.9 mmol/L [facility] Comment: Interpretive Data Not all point of care methods assess for hemolysis. Confirm with instrument and retest K+ if not consistent with clinical signs and symptoms. Current Interpretive Data was last revised on 2024. Cl, POC 95(L) 97 - 110 mmol/L [facility] Ionized Ca, POC 4.06(L) 4.50 - 5.10 mg/dL [facility] Glucose, POC 91 70 - 199 mg/dL [facility] Lactate, POC 5.1(C) 0.7 - 2.0 mmol/L [facility] O2Hb, Art POC 69.5(C) 90.0 - 95.0 % [facility] COHb, Art POC 2.0 0.0 - 2.9 % [facility] MetHgb, Art POC 0.2 0.0 - 1.9 % [facility] SO2 (annalisa) arterial 71(L) 90 - 95 % [facility] Base excess, POC -2.6 mmol/L [facility] HCO3, Art POC 24 20 - 30 mmol/L [facility] Hct, POC 39.0(L) 41.4 - 51.6 % [facility] Total Hb, POC 12.9(L) 13.8 - 17.2 g/dL [facility] Blood 02/21/2025 1:08 AM CDT 02/21/2025 1:08 AM CDT us Hood Pacheco MD LAB POCT ORDERABLES - DEVICE Fin al Result [facility] Department [place] [address] * AR ARTL CATHJ/CANNULJ MNTR/TRANSFUSION SPX PRQ (02/21/2025 1:00 AM CDT) Narrative Sanjiv Bishop MD - 02/21/2025 1:00 AM CDT Sanjiv Bishop MD 02/21/2025 9:03 AM Arterial Line Insertion Date/Time: 02/21/2025 1:00 AM Performed by: Reema Garcia MD Authorized by: Sanjiv Bishop MD [place] Protocol: RN Notified of Procedure: yes Patient's [...] 12:57 AM CDT) ABO Rh A Positive [facility] HC[facility] OTHER 02/21/2025 12:5 7 AM CDT 02/21/2025 12:57 AM CDT Hood Pacheco MD LAB BLOOD ORDERABLES Final Resul t Performing Organization Address [facility] de Phone Number [facility] [place] [address] [facility] * (ABNORMAL) Lactate (02/21/2025 12:12 AM CDT) Lactate 3.8(H) 0.7 - 2.0 mmol/L Blood 02/21/2025 12:1 2 AM CDT 02/21/2025 12:31 AM CDT Hood Pacheco MD LAB BLOOD ORDERABLES Final Resul t Performing Organization Address City/State/[facility] Co de Phone Number [facility] Department [place] [address] * ECG 12 lead (02/21/2025 12:08 AM CDT) Ventricular Rate EKG/Min 108 BPM [facility] Atrial Rate 108 BPM [facility] AR-Interval (MSEC) 162 ms [facility] QRS-Interval (MSEC) 150 ms [facility] QT-Interval (MSEC) 366 ms [facility] QTc 490 ms [facility] P Bayside 67 degrees [facility] R Bayside -75 degrees [facility] T Bayside 89 degrees [facility] Diagnosis Sinus tachycardia with frequent Premature ventricular complexes Left bundle branch block Abnormal ECG When compared with ECG of 06-APR-2007 06:22, Premature ventricular complexes are now Present Left bundle branch block is now Present Confirmed by FACUNDO ALLEN M.D ([id number]) on 02/21/2025 7:25:34 PM [facility] 02/21/2025 12:0 8 AM CDT 02/21/2025 7:25 PM CDT Hood Pacheco MD ECG ORDERABLES Final Result Performing Organization Address [facility] de Phone Number [facility] * Type and screen (02/21/2025 12:06 AM CDT) ABO Rh A Positive Kp, indirect Negative [facility] Blood 02/21/2025 12:0 6 AM CDT 02/21/2025 12:43 AM CDT Hood Pacheco MD LAB BLOOD BANK TEST ORDERABLES F inal Result Performing Organization Address [facility] Co de Phone Number [facility] [place] [address] * Infection Prevention MRSA Only (Staphylococcus aureus) Culture Nasal (02/21/2025 12:06 AM CDT) Report Final Report: Negative Nasal 02/21/2025 12:0 6 AM CDT 02/21/2025 12:24 AM CDT Narrative HAM NICOLAS - 02/22/2025 3:20 AM CDT Testing performed by [facility] ([phone]). Hood Pacheco MD LAB MICROBIOLOGY - GENERAL ORDER MICHELLE Final Result [facility] Department [place] [address] * AR CRITICAL CARE ILL/INJURED PATIENT INIT 30-74 MIN [...] Barakat MD LAB BLOOD ORDERABLES Final Result Performing Organization Address City/State/ZIP [place] Phone Number [facility] Department [place] [address] * (ABNORMAL) Pro B-type natriuretic peptide (02/20/2025 [...] Barakat MD LAB BLOOD ORDERABLES Final Result [facility] [facility] [place] [address] * (ABNORMAL) CBC with auto differential (02/20/2025 9:27 PM CDT) [facility] WBC 6.7 3.8 - 9.9 K/cumm Hgb 11.7(L) 13.0 - 17.5 g/dL [facility] Hct 34.5(L) 38.9 - 50.3 % [facility] Plt 78(L) 150 - 400 K/cumm [facility] MPV 12.0 9.1 - 12.3 fL [facility] RBC 3.66(L) 4.30 - 5.80 M/cumm [facility] MCV 94.3 81.3 - 96.4 fL [facility] MCH 32.0 27.1 - 33.3 pg [facility] MCHC 33.9 32.3 - 35.7 g/dL [facility] RDW CV 15.3(H) 11.1 - 14.9 % [facility] RDW SD 52.7(H) 35.7 - 48.1 fL [facility] NRBC abs 0.00 0.00 - 0.01 K/cumm [facility] Blood 02/20/2025 9:27 PM CDT 02/20/2025 9:39 PM CDT us Ivet Barakat MD LAB BLOOD ORDERABLES Final Result [facility] [place] [address] * (ABNORMAL) Manual Differential (02/20/2025 9:27 PM CDT) Differential Manual Cells Counted 141 [facility] Neutrophil abs 5.0 1.5 - 6.5 K/cumm [facility] Imm gran abs 0.8(H) 0.0 - 0.1 K/cumm [facility] Lymphocyte abs 0.4(L) 0.8 - 3.3 K/cumm [facility] Monocyte abs 0.4 0.2 - 0.8 K/cumm [facility] Neutrophil pct 75.2 % [facility] Comment: Interpretive Data Percent cell count reference ranges are not reported, since discordance with absolute values may lead to misinterpretation of CBC data. Current Interpretive Data was last revised on 2018. Lymphocyte pct 4.3 % [facility] Comment: Interpretive Data Percent cell count reference ranges are not reported, since discordance with absolute values may lead to misinterpretation of CBC data. Current Interpretive Data was last revised on 2018. Monocyte pct 6.4 % [facility] Comment: Interpretive Data Percent cell count reference ranges are not reported, since discordance with absolute values may lead to misinterpretation of CBC data. Current Interpretive Data was last revised on 2018. Metamyelocyte pct 7.8(H) 0.0 - 0.0 % [facility] Myelocyte pct 3.5(H) 0.0 - 0.0 % [facility] Promyelocyte pct 1.4(H) 0.0 - 0.0 % [facility] Variant lymph pct 1.4(H) 0.0 - 0.0 % [facility] Blood 02/20/2025 9:27 PM CDT 02/20/2025 9:44 PM CDT us Ivet Barakat MD LAB BLOOD ORDERABLES Final Result [facility] Department [place] [address] * (ABNORMAL) Basic metabolic panel (02/20/2025 9:27 PM CDT) Sodium 129(L) 135 - 145 mmol/L Potassium, pl 4.5 3.3 - 4.9 mmol/L [facility] Chloride 92(L) 97 - 110 mmol/L [facility] CO2 24 22 - 32 mmol/L [facility] Anion gap 13 2 - 15 mmol/L [facility] BUN 48(H) 6 - 25 mg/dL [facility] Creatinine 1.84(H) 0.80 - 1.30 mg/dL [facility] Glucose 81 70 - 199 mg/dL [facility] Comment: Interpretive Data Fasting glucose >/= 126 [...] 2022. Calcium 7.7(L) 8.5 - 10.3 mg/dL [facility] Blood 02/20/2025 9:27 PM CDT 02/20/2025 9:38 PM CDT Ivet Barakat MD LAB BLOOD ORDERABLES Final [place] [address] * (ABNORMAL) Lactate (02/20/2025 8:50 PM CDT) Lactate 4.9(C) 0.7 - 2.0 mmol/L Blood 02/20/2025 8:50 PM CDT 02/20/2025 9:00 PM CDT Divine Ventura MEDICAL ADMINISTRATIVE TECHNICIAN LAB BLOOD ORDERABLES Final Res ult Performing Organization Address City/[facility]/[place] [address] * Critical Result Callback Chemistry (02/20/2025 8:50 PM CDT) Date Notified 20250220 Time Notified 2134 [facility] TestName Lactate [facility] Called/Read Back Buck [facility] Credentials MD [facility] NICOLAS Called By [facility] Blood 02/20/2025 8:50 PM CDT 02/20/2025 9:00 PM CDT Divine Ventura MEDICAL ADMINISTRATIVE TECHNICIAN LAB BLOOD [place]AB[place] [address] * POCUS Thoracic (Lung Ultrasound) (02/20/2025 8:23 [...] (ABNORMAL) POCT lactate (02/20/2025 7:45 PM CDT) Lactate POC i-STAT 3.8(H) 0.7 - 2.0 mmol/L Blood 02/20/2025 7:45 PM CDT 02/20/2025 7:45 PM CDT Ivet Barakat MD LAB POCT ORDERABLES - DEVIC E Final Result [facility] Department [place] [address] * (ABNORMAL) ECG 12-LEAD (02/20/2025 7:35 PM CDT) Narrative [facility] - 02/20/2025 7:35 PM CDT Gisela [...] us Gisela Camejo MD ECG ORDERABLES Asya ma Result [facility] * POCT glucose (02/20/2025 7:13 PM CDT) Glucose, POC 82 70 - 199 mg/dL Blood 02/20/2025 7:13 PM CDT 02/20/2025 7:13 PM CDT Hood Pacheco MD LAB POCT ORDERABLES - DEVICE Fin al Result Performing Organization Address [facility] de Phone Number [facility] [employer] [place] [address] * POCT glucose (02/20/2025 3:45 PM CDT) Glucose, POC 90 70 - 199 mg/dL Blood 02/20/2025 3:45 PM CDT 02/20/2025 3:45 PM CDT Hood Pacheco MD LAB POCT ORDERABLES - DEVICE Fin al Result Performing Organization Address [facility] de Phone Number [facility] [place] [address] * (ABNORMAL) Lactate (02/20/2025 3:42 PM CDT) [facility] Lactate 5.0(C) 0.7 - 2.0 mmol/L Blood 02/20/2025 3:42 PM CDT 02/20/2025 3:50 PM CDT Divine Ventura NP LAB BLOOD ORDERABLES Final Res ult Performing Organization Address [facility] de Phone Number [facility] [employer] [place] [address] * (ABNORMAL) eGFR (02/20/2025 3:42 PM CDT) [...] CDT 02/20/2025 3:50 PM CDT Divine Ventura MEDICAL ADMINISTRATIVE TECHNICIAN LAB BLOOD ORDERABLES Final Res ult Performing Organization Address City/[facility] Co de Phone Number [facility] Department [place] [employer] [place] [address] * Critical Result Callback Chemistry (02/20/2025 3:42 PM CDT) Date Notified 20250220 Time Notified 1627 [facility] TestName Lactate [facility] Called/Read Back Esha NICOLAS Credentials ARIELLE LARIOS Called By PD [facility] Blood 02/20/2025 3:42 PM CDT 02/20/2025 3:50 PM CDT Divine Ventura MEDICAL ADMINISTRATIVE TECHNICIAN LAB BLOOD ORDERABLES Final Res ult [facility] [place] [employer] [place] [address] * (ABNORMAL) Basic metabolic panel (02/20/2025 3:42 PM CDT) Sodium 128(L) 135 - 145 mmol/L Potassium, pl 4.2 3.3 - 4.9 mmol/L [facility] Chloride 90(L) 97 - 110 mmol/L [facility] CO2 24 22 - 32 mmol/L [facility] Anion gap 14 2 - 15 mmol/L [facility] BUN 42(H) 6 - 25 mg/dL [facility] Creatinine 1.71(H) 0.80 - 1.30 mg/dL [facility] Glucose 88 70 - 199 mg/dL [facility] Comment: Interpretive Data Fasting glucose >/= 126 [...] 2022. Calcium 7.8(L) 8.5 - 10.3 mg/dL [facility] Blood 02/20/2025 3:42 PM CDT 02/20/2025 3:50 PM CDT us Divine Ventura NP LAB BLOOD ORDERABLES Final Res ult Performing Organization Address City/[facility]/ZIP Co de Phone Number [facility] Department [place] [address] * POCT glucose (02/20/2025 1:52 PM CDT) Glucose, POC 81 70 - 199 mg/dL Blood 02/20/2025 1:52 PM CDT 02/20/2025 1:52 PM CDT us Hood Pacheco MD LAB POCT ORDERABLES - DEVICE Fin al Result Performing Organization Address City/[facility]/ZIP Co de Phone Number [facility] Department [place] [address] * POCT glucose (02/20/2025 11:59 AM CDT) Glucose, POC 112 70 - 199 mg/dL Blood 02/20/2025 11:5 9 AM CDT 02/20/2025 11:59 AM CDT Hood Pacheco MD LAB POCT ORDERABLES - DEVICE Fin al Result Performing Organization Address [facility] de Phone Number [facility] [place] [employer] [place] [address] * (ABNORMAL) POCT glucose (02/20/2025 11:09 AM CDT) Glucose, POC 52(C) 70 - 199 mg/dL Comment:Glu2: RN/MD Notified Glucose comment 1 Glu2: RN/MD Notified [facility] Blood 02/20/2025 11:0 9 AM CDT 02/20/2025 11:09 AM CDT Hood Pachceo MD LAB POCT ORDERABLES - DEVICE Fin al Result Performing Organization Address [facility] [place] [address] * XR Abdomen Ap 1 Vw (02/20/2025 [...] by: Anton Petersen M.D., MPH [employer] MEDICAL ADMINISTRATIVE TECHNICIAN IMG XR PROCEDURES Final Result * (ABNORMAL) POCT glucose (02/20/2025 10:28 AM CDT) Glucose, POC 46(C) 70 - 199 mg/dL Comment:Glu2: RN/ Notified Glucose comment 1 Glu2: RN/ Notified [facility] Blood 02/20/2025 10:2 8 AM CDT 02/20/2025 10:28 AM CDT Hood Pacheco MD LAB POCT ORDERABLES - DEVICE Fin al Result Performing Organization Address [facility] Co de Phone Number [facility] Department [place] [address] * (ABNORMAL) POCT glucose (02/20/2025 9:13 AM CDT) Glucose, POC 49(C) 70 - 199 mg/dL Comment:Glu2: ARIELLE/ Notified Glucose comment 1 Glu2: RN/ Notified [facility] Blood 02/20/2025 9:13 AM CDT 02/20/2025 9:13 AM CDT Hood Pacheco MD LAB POCT ORDERABLES - DEVICE Fin al Result Performing Organization Address [facility] Co de Phone Number [facility] Department [place] [employer] [place] [address] * (ABNORMAL) POCT glucose (02/20/2025 9:10 AM CDT) Glucose, POC 51(C) 70 - 199 mg/dL Comment: Glu2: Critical Value Noted RN/ Notified Glucose comment 2 RN/MD Notified [facility] Blood 02/20/2025 9:10 AM CDT 02/20/2025 9:10 AM CDT Hood Pacheco MD LAB POCT ORDERABLES - DEVICE Fin al Result Performing Organization Address [facility] Co de Phone Number [facility] [employer] [place] [address] * (ABNORMAL) Sepsis Lactate w/ Reflex (02/20/2025 8:49 AM CDT) Pathologist [facility] Sepsis Lactate 4.7(C) 0.7 - 2.0 mmol/L Blood 02/20/2025 8:49 AM CDT 02/20/2025 9:17 AM CDT Sidney Malik MD LAB BLOOD ORDERABLES Fin al Result Performing Organization Address [facility] Co de Phone Number [facility] Department [place] [employer] [place] [address] * (ABNORMAL) Lactate (02/20/2025 8:49 AM CDT) Pathologist [facility] Lactate 4.7(C) 0.7 - 2.0 mmol/L Blood 02/20/2025 8:49 AM CDT 02/20/2025 9:26 AM CDT Divine Ventura NP LAB BLOOD ORDERABLES Final Res ult Performing Organization Address [facility] Co de Phone Number [facility] [employer] [place] [address] * (ABNORMAL) eGFR (02/20/2025 8:49 AM CDT) eGFR 39(L) >=60 mL/min/1. 73 m2 [...] NP LAB BLOOD ORDERABLES Final Res ult [facility] Department [place] [employer] [place] [address] * Critical Result Callback Chemistry (02/20/2025 8:49 AM CDT) Date Notified 20250220 Time Notified [facility] TestName Marc NICOLAS Called/Read Back Prakash NICOLAS Credentials ARIELLE NICOLAS Called By [facility] NICOL[facility] Blood 02/20/2025 8:49 AM CDT 02/20/2025 9:26 AM CDT Divine Ventura NP LAB BLOOD ORDERABLES Final Res ult [facility] [place] [address] * Critical Result Callback Chemistry (02/20/2025 8:49 AM CDT) Date Notified 20250220 Time Notified 956 [facility] TestName Lactate [facility] Called/Read Back Samm [facility] Credentials RN [facility] NICOLAS Called By [facility] Blood 02/20/2025 8:49 AM CDT 02/20/2025 9:26 AM CDT us Divine Ventura MEDICAL ADMINISTRATIVE TECHNICIAN LAB BLOOD ORDERABLES Final Res ult Performing Organization Address City/[facility] Co de Phone Number [facility] Department [place] [address] * Critical Result Callback Chemistry (02/20/2025 8:49 AM CDT) Date Notified 20250220 Time Notified 922 [facility] TestName Sepsis Lactate [facility] Called/Read Back Samm [facility] Credentials RN [facility] Called By [facility] Blood 02/20/2025 8:49 AM CDT 02/20/2025 9:17 AM CDT us Sidney Malik MD LAB BLOOD ORDERABLES Fin al Result Performing Organization Address [facility] Co de Phone Number [facility] Department [place] [address] * Urea nitrogen, urine, random (02/20/2025 8:49 AM CDT) Urea nitrogen, ur 294 mg/dL Comment: Interpretive Data No reference range established. Current interpretive data was last revised 2019. Urine 02/20/2025 8:49 AM CDT 02/20/2025 9:27 AM CDT us Hood Pacheco MD LAB URINE ORDERABLES Final Resul t Performing Organization Address City/[facility] Co de Phone Number [facility] [place] [address] * (ABNORMAL) Protein / creatinine ratio, urine, random (02/20/2025 8:49 AM CDT) [facility] Protein, ur, quant 63.9 mg/dL Comment: Interpretive Data No reference range established. Current interpretive data was last revised 2019. Creatinine Ur 255.6 mg/dL [facility] Comment: Interpretive Data No reference range established. Current interpretive data was last revised 2019. Protein/creatinin e ratio 250.0(H) 0.0 - 180.0 mg/g CR [facility] Urine 02/20/2025 8:49 AM CDT 02/20/2025 9:27 AM CDT us Divine Ventura NP LAB URINE ORDERABLES Final Res ult Performing Organization Address City/[facility]/[place] [address] * Hepatitis panel, acute Blood (02/20/2025 8:49 AM CDT) [facility] Hep A IgM Nonreactive Nonreactive Hep B core IgM Nonreactive Nonreactive [facility] Hep C Ab Nonreactive Nonreactive [facility] Comment:Antibodies to HCV no t detected. Does NOT exclude the possibility of recent exposure to HCV. Current interpretive data was last revised on 22 HepBsAg Nonreactive Nonreactive [facility] Blood 02/20/2025 8:49 AM CDT 02/20/2025 9:26 AM CDT us Divine Ventura NP LAB MICROBIOLOGY - GENERAL ORD ERABLES Final Result Performing Organization Address City/[facility]/[place] [address] * Sodium, urine, random (02/20/2025 8:49 AM CDT) Sodium, ur <20 mmol/L Comment: Repeated and Verified Interpretive Data No reference range established. Current interpretive data was last revised 2019. Urine 02/20/2025 8:49 AM CDT 02/20/2025 9:27 AM CDT us Divine Ventura MEDICAL ADMINISTRATIVE TECHNICIAN LAB URINE ORDERABLES Final Res ult Performing Organization Address [facility] de Phone Number [facility] [place] [employer] [place] [address] * Osmolality, urine (02/20/2025 8:49 AM CDT) Osmo, ur 362 mOsm/kg Urine 02/20/2025 8:49 AM CDT 02/20/2025 9:27 AM CDT Divine Ventura MEDICAL ADMINISTRATIVE TECHNICIAN LAB URINE ORDERABLES Final Res ult Performing Organization Address [facility] Phone Number [facility] [employer] [place] [address] * Creatinine, urine, random (02/20/2025 8:49 AM CDT) Creatinine Ur 255.6 mg/dL Comment: Interpretive Data No reference range established. Current interpretive data was last revised 2019. Urine 02/20/2025 8:49 AM CDT 02/20/2025 9:27 AM CDT Divine Ventura MEDICAL ADMINISTRATIVE TECHNICIAN LAB URINE ORDERABLES Final Res ult Performing Organization Address [facility] de Phone Number [facility] [employer] [place] [address] * aPTT (02/20/2025 8:49 AM CDT) aPTT 37 28 - 38 sec Comment: Interpretive Data Heparin therapeutic range: 66.0 - 100.0 seconds. Range based on correlation with therapeutic heparin activity range of 0.3 - 0.7 Units/mL. Current interpretive data was last revised on 2023. Blood 02/20/2025 8:49 AM CDT 02/20/2025 9:20 AM CDT Divine Ventura MEDICAL ADMINISTRATIVE TECHNICIAN LAB BLOOD ORDERABLES Final Res ult Performing Organization Address [facility] de Phone Number [facility] [place] [address] * (ABNORMAL) Protime-INR (02/20/2025 8:49 AM CDT) PT 21.6(H) 9.7 - 13.0 sec INR 1.97(H) 0.90 - 1.20 [facility] Comment: Interpretive data Oral anticoagulant therapeutic ranges: Venous thromboembolism prophylaxis or treatment: 2.0-3.0 CARDIOLOGY Standard range: 2.0-3.0 High-intensity range: 2.5-3.5 Refer to indication-specific guidelines for appropriate target ranges for prosthetic heart valve replacement. Current interpretive data was last revised on 2019. Blood 02/20/2025 8:49 AM CDT 02/20/2025 9:20 AM CDT Divine Ventura MEDICAL ADMINISTRATIVE TECHNICIAN LAB BLOOD ORDERABLES Final Res t Performing Organization Address [facility] de Phone Number [facility] Department [place] [address] * (ABNORMAL) CBC without differential (02/20/2025 8:49 AM CDT) WBC 2.8(L) 3.8 - 9.9 K/cumm Hgb 11.8(L) 13.0 - 17.5 g/dL [facility] Hct 35.2(L) 38.9 - 50.3 % [facility] Plt 76(L) 150 - 400 K/cumm [facility] MPV 12.3 9.1 - 12.3 fL [facility] RBC 3.75(L) 4.30 - 5.80 M/cumm [facility] MCV 93.9 81.3 - 96.4 fL [facility] MCH 31.5 27.1 - 33.3 pg [facility] MCHC 33.5 32.3 - 35.7 g/dL [facility] RDW CV 15.4(H) 11.1 - 14.9 % [facility] RDW SD 53.0(H) 35.7 - 48.1 fL [facility] NRBC abs 0.00 0.00 - 0.01 K/cumm [facility] Blood 02/20/2025 8:49 AM CDT 02/20/2025 9:26 AM CDT Divine Ventura NP LAB BLOOD ORDERABLES Final Res ult Performing Organization Address [facility]/ZIP Co de Phone Number [facility] Department [place] [address] * Osmolality, blood (02/20/2025 8:49 AM CDT) Osmo 282 275 - 300 mOsm/kg Blood 02/20/2025 8:49 AM CDT 02/20/2025 9:25 AM CDT Divine Ventura MEDICAL ADMINISTRATIVE TECHNICIAN LAB BLOOD ORDERABLES Final Res ult [facility] [place] [address] * Magnesium (02/20/2025 8:49 AM CDT) Magnesium 1.6 1.4 - 2.5 mg/dL Blood 02/20/2025 8:49 AM CDT 02/20/2025 9:26 AM CDT Hood Pacheco MD LAB BLOOD ORDERABLES Final Resul t Performing Organization Address City/[facility] Co de Phone Number [facility] Department [place] [address] * (ABNORMAL) Bilirubin, direct (02/20/2025 8:49 AM CDT) Bilirubin, direct 0.6(H) 0.1 - 0.3 mg/dL Blood 02/20/2025 8:49 AM CDT 02/20/2025 9:26 AM CDT Divine Ventura NP LAB BLOOD ORDERABLES Final Res ult Performing Organization Address [facility] Co de Phone Number [facility] [place] [address] * (ABNORMAL) Lipid panel (02/20/2025 8:49 AM [...] revised on 2018. Triglycerides 131 <=149 mg/dL [facility] Comment: Interpretive Data Ages < [...] revised on 2018. HDL 21(L) >=40 mg/dL [facility] Comment: Interpretive Data Ages < or = [...] on 2018. LDL, calculated 43 <=129 mg/dL [facility] Comment: Interpretive Data Ages < or = [...] NCEP Expert Panel. Circulation 2004;110:227 3. Carter Oakes al. CRISTOBAL Cardiol. 2019March 23;5(5):540-548. doi: 10.1001/[email or web address].2020.0013 Current Interpretive Data was last revised on 2024. Non-HDL Cholesterol 67 mg/dL [facility] Comment: Interpretive Data Ages < or = [...] last revised on 2018. Chol/HDL ratio 4 [facility] Blood 02/20/2025 8:49 AM CDT 02/20/2025 9:26 AM CDT Narrative [facility] - 02/20/2025 4:02 PM CDT Reflex us Hood Pacheco MD LAB BLOOD ORDERABLES Final Resul t [facility] [place] [address] * (ABNORMAL) Comprehensive metabolic panel (02/20/2025 8:49 AM CDT) Sodium 131(L) 135 - 145 mmol/L Potassium, pl 3.9 3.3 - 4.9 mmol/L [facility] Chloride 93(L) 97 - 110 mmol/L [facility] CO2 25 22 - 32 mmol/L [facility] Anion gap 13 2 - 15 mmol/L [facility] BUN 37(H) 6 - 25 mg/dL [facility] Creatinine 1.82(H) 0.80 - 1.30 mg/dL [facility] Glucose 47(C) 70 - 199 mg/dL [facility] Comment: Glycolysis suspected; suggest sending a ware [...] 2022. Calcium 7.7(L) 8.5 - 10.3 mg/dL [facility] Bilirubin, total 1.2 0.1 - 1.2 mg/dL [facility] Protein, pl 6.9 6.5 - 8.5 g/dL [facility] Albumin 3.1(L) 3.5 - 5.0 g/dL [facility] Alk phos 52 40 - 130 Units/L [facility] ALT 44 7 - 55 Units/L [facility] AST 71(H) 10 - 50 Units/L [facility] Blood 02/20/2025 8:49 AM CDT 02/20/2025 9:26 AM CDT us Divine Ventura MEDICAL ADMINISTRATIVE TECHNICIAN LAB BLOOD ORDERABLES Final Res ult [facility] [place] [address] * (ABNORMAL) Urinalysis reflex to microscopic (02/20/2025 7:59 AM CDT) Color, ur Rina Yellow Clarity, ur Cloudy(A) Clear [facility] Specific gravity, ur 1.023 1.003 - 1.030 [facility] pH, urine 5.5 [facility] Comment: Interpretive Data U rine pH is affected by diet, medications, systemic acid-base disturbances, and renal tubular function. pH may affect urinary stone formation. For example, urine pH below 6.0 may help reduce the tendency for calcium phosphate stones and pH greater than 6.0 may reduce the tendency for uric acid stone formation. Source: [facility] Current Interpretive Data was last revised on 2017 Protein, ur ql 1+(A) Negative [facility] Glucose, ur ql Negative Negative [facility] Ketones, ur Negative Negative [facility] Bilirubin, ur Negative Negative [facility] Blood, ur Negative Negative [facility] Urobilinogen, ur <2.0 <2.0 mg/dL [facility] Nitrite, ur Negative Negative [facility] Leukocyte esterase, ur Negative Negative [facility] UA reflex comment Reflex to microscopic UA will be performed. [facility] Urine 02/20/2025 7:59 AM CDT 02/20/2025 8:09 AM CDT us Marc Vasquez MD PhD LAB URINE ORDERABLE S Final Result Performing Organization Address [facility] Co de Phone Number HAM [facility] Department [place] [address] * Legionella antigen Urine (02/20/2025 7:59 AM CDT) Legionella Ag Negative Negative Comment: Interpretive Data This test detects only Legionella pneumophila serogroup 1 antigen. Testing performed by [facility] ([phone]). Current interpretive data was last revised on 2020. Urine 02/20/2025 7:59 AM CDT 02/20/2025 8:11 AM CDT us Facundo Butt MEDICAL ADMINISTRATIVE TECHNICIAN LAB MICROBIOLOGY - GENER AL ORDERABLES Final Result Performing Organization Address [facility] de Phone Number [facility] Department [place] [address] * (ABNORMAL) Urinalysis, microscopic only (02/20/2025 7:59 AM CDT) WBC, ur 0-5 0 - 5 /HPF RBC, ur 0-2 0 - 2 /HPF CERNER BJ Epithelial cells, squamous, ur 1-5 0 - 5 /HPF CERNER BJ Bacteria, ur Trace(A) [facility]ER [facility] Yeast, ur TRACE CERNER BJ Mucous, ur Present(A) CERNER BJ Hyaline casts, ur >50(A) 0 - 10 /LPF CERNER BJ Urine 02/20/2025 7:59 AM CDT 02/20/2025 8:09 AM CDT us Marc Vasquez MD PhD LAB URINE ORDERABLE S Final Result Performing Organization Address [facility] Co de Phone Number [facility] Department [place] [address] * (ABNORMAL) Sepsis Lactate w/ Reflex (02/20/2025 5:25 AM CDT) Sepsis Lactate 3.6(H) 0.7 - 2.0 mmol/L Blood 02/20/2025 5:25 AM CDT 02/20/2025 5:29 AM CDT Sidney Malik MD LAB BLOOD ORDERABLES Fin al Result Performing Organization Address City/[facility] Co de Phone Number [facility] [employer] [place] [address] * POCT glucose (02/20/2025 2:17 AM CDT) Pathologist [facility] Glucose, POC 103 70 - 199 mg/dL Blood 02/20/2025 2:17 AM CDT 02/20/2025 2:17 AM CDT Marc Vasquez MD PhD LAB POCT ORDERABLES - DEVICE Final Result Performing Organization Address [facility] de Phone Number [facility] [employer] [place] [address] * (ABNORMAL) Sepsis Lactate w/ Reflex (02/20/2025 1:53 AM CDT) Pathologist [facility] Sepsis Lactate 6.4(C) 0.7 - 2.0 mmol/L Blood 02/20/2025 1:53 AM CDT 02/20/2025 2:03 AM CDT Sidney Malik MD LAB BLOOD ORDERABLES Fin al Result Performing Organization Address [facility] de Phone Number [facility] [employer] [place] [address] * Critical Result Callback Chemistry (02/20/2025 1:53 AM CDT) Pathologist [facility] Date Notified [id number] Time Notified 212 [facility] TestName Sepsis Lactate CERNER [facility] Called/Read Back Sidney CHEEK [facility] Credentials MD CHEEK [facility] Called By TRAE CHEEK [facility] Blood 02/20/2025 1:53 AM CDT 02/20/2025 2:03 AM CDT us Sidney Malik MD LAB BLOOD ORDERABLES Fin al Result Performing Organization Address City/[facility]/ZIP Co de Phone Number [facility] [place] [employer] [place] [address] * (ABNORMAL) POCT glucose (02/20/2025 12:07 AM CDT) Glucose, POC 55(L) 70 - 199 mg/dL Blood 02/20/2025 12:0 7 AM CDT 02/20/2025 12:07 AM CDT us Marc Vasquez MD PhD LAB POCT ORDERABLES - DEVICE Final Result Performing Organization Address [facility] Co de Phone Number [facility] [place] [employer] [place] [address] * (ABNORMAL) POCT glucose (02/19/2025 11:41 PM CDT) Glucose, POC 58(L) 70 - 199 mg/dL Blood 02/19/2025 11:4 1 PM CDT 02/19/2025 11:41 PM CDT us Marc Vasquez MD PhD LAB POCT ORDERABLES - DEVICE Final Result Performing Organization Address City/[facility] Co de Phone Number [facility] [employer] [place] [address] * (ABNORMAL) Troponin I high-sensitivity 6-hour (02/19/2025 9:58 PM CDT) Trop I hs 116(H) <=35 ng/L Comment: Interpretive Data For further hscTnI resources including the diagnostic algorithm and an aid in interpretation, copy and paste this link: [email or web address]/show/[email or web address] Current Interpretive Data last revised 2020. Trop I hs delta See Comment ng/L H[facility] Comment:Inappropriate collec tion time to report a delta. Trop I hs pct delta See Comment % [facility] Comment:Inappropriate collec tion time to report a delta. Trop I hs interp See Comment [facility] Comment:Inappropriate collec tion time to report a delta. Blood 02/19/2025 9:58 PM CDT 02/19/2025 10:19 PM CDT Idalia Calderón MD LAB BLOOD ORDERABLES Final Result Performing Organization Address [facility]/ZIP Co de Phone Number [facility] Department [place] [address] * (ABNORMAL) Troponin I high-sensitivity 4-hour (02/19/2025 9:58 PM CDT) Trop I hs 99(H) <=35 ng/L Comment: Interpretive Data For further hscTnI resources including the diagnostic algorithm and an aid in interpretation, copy and paste this link: [email or web address] [email or web address]/show/hsTrop-1 Current Interpretive Data last revised 2020. Trop I hs delta See Comment ng/L [facility] Comment:Inappropriate collec tion time to report a delta. Trop I hs pct delta See Comment % [facility] Comment:Inappropriate collec tion time to report a delta. Trop I hs interp See Comment [facility] Comment:Inappropriate collec tion time to report a delta. Blood 02/19/2025 9:58 PM CDT 02/19/2025 10:19 PM CDT Idalia Calderón MD LAB BLOOD ORDERABLES Final Result CERNER [facility] [place] [address] * (ABNORMAL) Troponin I high-sensitivity 2-hour (02/19/2025 9:58 PM CDT) Trop I hs 99(H) <=35 ng/L Comment: Interpretive Data For further hscTnI resources including the diagnostic algorithm and an aid in interpretation, copy and paste this link: [email or web address].testcatalog.org/show/hsTrop-1 Current Interpretive Data last revised 2020. Trop I hs pct delta -20(C) % [facility] Trop I hs interp Significa nt(C) [facility] Blood 02/19/2025 9:58 PM CDT 02/19/2025 10:19 PM CDT us Idalia Calderón MD LAB BLOOD ORDERABLES Final Result [facility] Department [place] [address] * (ABNORMAL) Lactate (02/19/2025 9:58 PM CDT) Pathologist [facility] Lactate 5.9(C) 0.7 - 2.0 mmol/L Blood 02/19/2025 9:58 PM CDT 02/19/2025 10:19 PM CDT us Sidney Malik MD LAB BLOOD [place] [address] * Critical result callback Cardio chemistry (02/19/2025 9:58 PM CDT) Date Notified 20250219 Time Notified 2303. [facility] Test name Trop I hs 2hr p [facility] Called/Read Back Sidney CHEEK [facility] Credentials MD CHEEK [facility] Called By TRAE CHEEK [facility] Blood 02/19/2025 9:58 PM CDT 02/19/2025 10:19 PM CDT Idalia Calderón MD LAB BLOOD ORDERABLES Final Result Performing Organization Address [facility]/ZIP Co de Phone Number [facility] [address] * Critical Result Callback Chemistry (02/19/2025 9:58 PM CDT) Pathologist [facility] Date Notified 20250219 Time Notified 2244 [facility] TestName Lactate [facility] Called/Read Back Abraham Lutz [facility] Credentials RN [facility] Called By scott [facility] Blood 02/19/2025 9:58 PM CDT 02/19/2025 10:19 PM CDT us Sidney Malik MD LAB BLOOD ORDERABLES Fin al Result Performing Organization Address [facility] [place] [address] * Respiratory pathogen panel Nasopharyngeal (02/19/2025 9:58 PM CDT) Pathologist [facility] Influenza A RNA Not Detected Not Detected Influenza B RNA Not Detected Not Detected [facility] RSV RNA Not Detected Not Detected [facility] COVID-19 RNA Not Detected Not Detected [facility] Coronavirus 229E RNA Not Detected Not Detected [facility] Coronavirus HKU1 RNA Not Detected Not Detected [facility] Coronavirus NL63 RNA Not Detected Not Detected [facility] Coronavirus OC43 RNA Not Detected Not Detected [facility] Adenovirus DNA Not Detected Not Detected [facility] Metapneumovirus RNA Not Detected Not Detected [facility] Rhinovirus/Enterov irus RNA Not Detected Not Detected [facility] Parainfluenza 1 RNA Not Detected Not Detected [facility] Parainfluenza 2 RNA Not Detected Not Detected [facility] Parainfluenza 3 RNA Not Detected Not Detected [facility] Parainfluenza 4 RNA Not Detected Not Detected [facility] B. pertussis DNA Not Detected Not Detected [facility] B. parapertussis DNA Not Detected Not Detected [facility] C. pneumoniae DNA Not Detected Not Detected [facility] M. pneumoniae DNA Not Detected Not Detected [facility] Nasopharyngeal 02/19/2025 9: 58 PM CDT 02/19/2025 10:25 PM CDT Narrative CERNER [facility] - 02/19/2025 11:25 PM CDT Is the Patient experiencing symptoms consistent with COVID?->Unknown Surveillance testing for transplant patient?->No Interpretive Data The MDCapsule FilmArray Respiratory Panel (RP2.1) assay is a [...] assay has FDA clearance for testing of MEDICAL ADMINISTRATIVE TECHNICIAN swabs. The performance of additional specimen types has been assessed by the performing laboratory. The performance characteristics of this assay have been determined by [facility] Infectious Disease [facility]. Current interpretive data was last revised on 22. us Sidney Malik MD LAB MICROBIOLOGY - [facility] AL ORDERABLES Final Result [facility]AM NICOL[facility] Department [place] [address] * Blood culture Blood Peripheral (02/19/2025 9:58 PM CDT) Report Final Report: No growth Blood (Peripheral) 02/19/2025 9:58 PM CDT 02/19/2025 10:27 PM CDT [facility] - 02/24/2025 7:01 AM CDT From a [...] performance characteristics have been verified by the [facility]. For questions about this culture, contact the Microbiology Laboratory at [phone]. Interpretive data was last revised on 24. Sidney Malik MD LAB MICROBIOLOGY - GENER AL ORDERABLES Final Result Performing Organization Address [facility] Co de Phone Number HAM LARIOS [facility] Department [place] [address] * Blood culture Blood Peripheral (02/19/2025 9:58 PM CDT) Report Final Report: No growth Blood (Peripheral) 02/19/2025 9:58 PM CDT 02/19/2025 10:27 PM CDT Yolanda LARIOS - 02/24/2025 7:01 AM CDT Draw Blood [...] performance characteristics have been verified by the [facility]. For questions about this culture, contact the Microbiology Laboratory at [phone]. Interpretive data was last revised on 24. Sidney Malik MD LAB MICROBIOLOGY - GENER AL ORDERABLES Final Result Performing Organization Address [facility]/ZIP Co de Phone Number [facility] [place] [address] * Blood gas, venous (02/19/2025 9:58 PM CDT) pH, Venous 7.33 7.32 - 7.43 PCO2, Venous 47 40 - 50 mmHg [facility] PO2, Venous 49 mmHg [facility] Comment: Interpretive Data No Reference Range Established Current Interpretive Data was last revised on 2018. HCO3 Venous, Calculated 25 20 - 30 mmol/L [facility] BE, venous -2 mmol/L [facility] Comment: Interpretive Data No Reference Range Established Current Interpretive Data was last revised on 2018. Blood 02/19/2025 9:58 PM CDT 02/19/2025 10:13 PM CDT us Sidney Malik MD LAB BLOOD ORDERABLES Fin al Result Performing Organization Address City/State/[facility] Co de Phone Number CERNER BJ [facility] Department [place] [address] * XR Chest PA Lateral 2 Views [...] MD IMG XR PROCEDURES Final Result * AR CRITICAL CARE ILL/INJURED PATIENT INIT 30-74 MIN [...] PhD LAB BLOOD ORDERABLE S Final Result [facility] Department [place] [address] * (ABNORMAL) eGFR (02/19/2025 8:12 PM CDT) [...] PhD LAB BLOOD ORDERABLE S Final Result [facility] [place] [address] * (ABNORMAL) Differential, auto (02/19/2025 8:12 PM CDT) Neutrophil abs 3.3 1.5 - 6.5 K/cumm Imm gran abs 0.4(H) 0.0 - 0.1 K/cumm C[facility]ER [facility] Lymphocyte abs 0.7(L) 0.8 - 3.3 K/cumm CERNER [facility] Monocyte abs 0.7 0.2 - 0.8 K/cumm CERNER [facility] Eosinophil abs 0.0 0.0 - 0.5 K/cumm CERNER [facility] Basophil abs 0.0 0.0 - 0.1 K/cumm [facility] Neutrophil pct 64.4 % [facility] Comment: Confirmed by smear review Interpretive Data Percent cell count reference ranges are not reported, since discordance with absolute values may lead to misinterpretation of CBC data. Current Interpretive Data was last revised on 2018. Imm gran pct 7.4 % [facility] Comment: Interpretive Data Percent cell count reference ranges are not reported, since discordance with absolute values may lead to misinterpretation of CBC data. Current Interpretive Data was last revised on 2018. Lymphocyte pct 13.8 % [facility] Comment: Interpretive Data Percent cell count reference ranges are not reported, since discordance with absolute values may lead to misinterpretation of CBC data. Current Interpretive Data was last revised on 2018. Monocyte pct 13.6 % [facility] Comment: Interpretive Data Percent cell count reference ranges are not reported, since discordance with absolute values may lead to misinterpretation of CBC data. Current Interpretive Data was last revised on 2018. Eosinophil pct 0.0 % [facility] Comment: Interpretive Data Percent cell count reference ranges are not reported, since discordance with absolute values may lead to misinterpretation of CBC data. Current Interpretive Data was last revised on 2018. Basophil pct 0.8 % [facility] Comment: Interpretive Data Percent cell count reference ranges are not reported, since discordance with absolute values may lead to misinterpretation of CBC data. Current Interpretive Data was last revised on 2018. Blood 02/19/2025 8:12 PM CDT 02/19/2025 8:31 PM CDT us Marc Vasquez MD PhD LAB BLOOD ORDERABLE S Final Result [facility] Department [place] [address] * (ABNORMAL) Pro B-type natriuretic peptide (02/19/2025 [...] MD LAB BLOOD ORDERABLES Fin al Result [facility] [place] [address] * (ABNORMAL) CBC with auto differential (02/19/2025 8:12 PM CDT) WBC 5.1 3.8 - 9.9 K/cumm Hgb 11.6(L) 13.0 - 17.5 g/dL [facility] Hct 34.8(L) 38.9 - 50.3 % [facility] Plt 92(L) 150 - 400 K/cumm [facility] MPV 12.4(H) 9.1 - 12.3 fL [facility] RBC 3.70(L) 4.30 - 5.80 M/cumm [facility] MCV 94.1 81.3 - 96.4 fL [facility] MCH 31.4 27.1 - 33.3 pg [facility] MCHC 33.3 32.3 - 35.7 g/dL [facility] RDW CV 15.5(H) 11.1 - 14.9 % [facility] RDW SD 53.1(H) 35.7 - 48.1 fL [facility] NRBC abs 0.00 0.00 - 0.01 K/cumm [facility] Blood Venous blood specimen / Unknown 02/19/2025 8:12 PM CDT 02/19/2025 8:31 PM CDT us Marc Vasquez MD PhD LAB BLOOD ORDERABLE S Final Result [facility] [place] [address] * Lipase (02/19/2025 8:12 PM CDT) Pathologist [facility] Lipase 10 10 - 99 Units/L Blood Venous blood specimen / Unknown 02/19/2025 8:12 PM CDT 02/19/2025 8:30 PM CDT Marc Vasquez MD PhD LAB BLOOD ORDERABLE S Final Result Performing Organization Address [facility] [place] [address] * (ABNORMAL) Hemoglobin A1c (02/19/2025 8:12 PM CDT) [facility] Hgb A1C 6.4(H) 4.0 - 5.6 % Estimated Average Glucose 137 mg/dL [facility] Comment: The ADA recommends reporting an estimated Average Glucose (eAG) with all Hemoglobin A1c results using the equation derived from a study of 507 normal and diabetic adults. Minority populations were underrepresented and children were not included. (Diabetes Care 2020; 43(S1): S66-S76). The eAG is not equivalent to a fasting glucose. Blood 02/19/2025 8:12 PM CDT 02/19/2025 8:34 PM CDT us Hood Pacheco MD LAB BLOOD ORDERABLES Final Resul t Performing Organization Address [facility]/ZIP Co de Phone Number [facility] [place] [address] * (ABNORMAL) Comprehensive metabolic panel (02/19/2025 8:12 PM CDT) Sodium 132(L) 135 - 145 mmol/L Potassium, pl 4.0 3.3 - 4.9 mmol/L [facility] Comment:Hemolyzed; Potassium value may be falsely elevated by as much as 0.3-0.5 mmol/L. Suggest redraw and reanalysis. Chloride 91(L) 97 - 110 mmol/L [facility] CO2 23 22 - 32 mmol/L [facility] Anion gap 18(H) 2 - 15 mmol/L [facility] BUN 29(H) 6 - 25 mg/dL [facility] Creatinine 2.02(H) 0.80 - 1.30 mg/dL [facility] Glucose 66(L) 70 - 199 mg/dL [facility] Comment: Interpretive Data Fasting glucose >/= 126 [...] 2022. Calcium 8.5 8.5 - 10.3 mg/dL [facility] Bilirubin, total 1.8(H) 0.1 - 1.2 mg/dL [facility] Protein, pl 7.3 6.5 - 8.5 g/dL [facility] Albumin 3.2(L) 3.5 - 5.0 g/dL [facility] Alk phos 70 40 - 130 Units/L [facility] ALT 31 7 - 55 Units/L [facility] AST 63(H) 10 - 50 Units/L [facility] Comment:Hemolyzed; result ma y be falsely elevated Blood 02/19/2025 8:12 PM CDT 02/19/2025 8:30 PM CDT us Marc Vasquez MD PhD LAB BLOOD ORDERABLE S Final Result [facility] [place] [address] * ECG 12-LEAD (02/19/2025 7:57 PM CDT) Narrative [facility] - 02/19/2025 7:57 PM CDT Marc Vasquez MD PhD 02/19/2025 8:00 PM ECG 12 lead Date/Time: 02/19/2025 7:57 PM Performed by: Marc Vsaquez MD PhD Authorized by: Idalia Calderón MD [...] PVCs are new. Marc Vasquez MD PhD 02/19/251999 us Marc Vasquez MD PhD ECG ORDERABLES Fin al Result Performing Organization Address [facility]/ZIP Co de Phone Number [facility] * POCT glucose (12/15/2024 12:46 PM LOCOMOTIVE ENGINEER) [facility] Signature Glucose, POC 128 70 - 199 mg/dL Blood 12/15/2024 12:4 6 PM LOCOMOTIVE ENGINEER 12/15/2024 12:46 PM LOCOMOTIVE ENGINEER us Aaron Gutierrez MD LAB POCT ORDERABLES - DEV ICE Final Result Performing Organization Address City/[facility]/ZIP Co de Phone Number [facility] Department [place] [address] * POCT glucose (12/15/2024 10:26 AM LOCOMOTIVE ENGINEER) Glucose, POC 136 70 - 199 mg/dL Blood 12/15/2024 10:2 6 AM LOCOMOTIVE ENGINEER 12/15/2024 10:26 AM LOCOMOTIVE ENGINEER us Aaron Gutierrez MD LAB POCT ORDERABLES - DEV ICE Final Result [facility] N[facility] [place] [address] * CT Chest WO Contrast F/U Lung Screen Protocol (11/12/2022 4:29 PM LOCOMOTIVE ENGINEER) Anatomical Region Laterality Modality Chest N/A Computed Tomogra phy 11/13/2022 8:38 AM LOCOMOTIVE ENGINEER Narrative 11/13/2022 8:47 AM LOCOMOTIVE ENGINEER EXAM DESCRIPTION: CT CHEST WO CONTRAST F/U [...] More Greenwood M.D. TW: TW Report ID: [id number] Reading Location: [place] [address] Procedure Note More Greenwood MD - 11/13/2022 [...] More Greenwood M.D. TW: CASSIE Report ID: [id number] Reading Location: [id number] Sami Campbell MD [facility] PROCEDURES Final Result * (ABNORMAL) Albumin Creatinine Ratio, Urine (07/01/2022 2:08 PM CDT) Albumin Ur 32.7 mg/L [facility] (JO) Comment: Interpretive Data No reference range established. Current interpretive data was last revised 2019. Testing performed by: [facility], [address] [place] [address]., [id number] Creatinine Ur 57.0 mg/dL [facility] CH[facility]AL (JO) Comment: Interpretive Data No reference range established. Current interpretive data was last revised 2019. Testing performed by: [facility], [address] [place] [address]., [id number] Albumin Creatinine Ratio, Ur 57(H) 1 - 29 mg/g OMAYRARASHIDA CHAHAL (JO) Comment:Testing performed by : [facility], [address] [place] [address]., [id number] Urine 07/01/2022 2:08 PM CDT 07/02/2022 9:48 AM CDT Xiao Swanson MD LAB URINE ORDERABLES Final Res ult HAM TIRSO (JO) 1 [facility] Department of Laboratories [place] [id number] * Diabetic Eye Exam (01/22/2022) Historical Provider HEALTH MAINTENANCE Final Result from Last 3 Months or Most Recently Relevant to Health Maintenance Insurance [facility] MEDICARE ADVANTAGE [facility] Address: [address] [address] [facility] MEDICARE ADVANTAGE [facility] Address: [address] [address] [place] [address] [facility] MEDICARE [facility]AGE [facility] Address: [address] [address] [place] [address] Advance Directives For more information, please contact: [phone] * Full Code (Latest Code Status on File) Date Activated Date Inactivated Comments 02/20/2025 1:29 PM 03/02/2025 8:05 PM * Full Code Date Activated Date Inactivated Comments 09/08/2019 2:14 PM 09/08/2019 9:30 PM Care Teams Inspector Conveyor Line Relationship Specialty Start Date End Date Giuliano Isbell [place] [address] PCP - General Family Medicine 07/13/23
--- OUTSIDE RECORDS SUMMARY | 2025-03-12 04:42 | XMS_ITS | Encounter Summary ---
Author Organization [facility] Address [address] [place] [address] Phone Care Team Providers Care Learning Manager Name Role Phone Giuliano sIbell MD Primary Care Provider [phone] Jazmin Durbin RN Unavailable [phone] Encounter Details Date Type Department Care Team (Late st Contact Info) Description 07/13/2024 Orders Only [facility] Scanning, Provider Social History Tobacco Use Types Packs/Day Years Used Date Smoking Tobacco: Every Day Cigarettes 1 55.3 Started: 1970 Passive Smoke Exposure: Current Smokeless Tobacco: Never Alcohol Use Standard Drinks/Week Comments No 0 (1 standard drink = 0.6 oz pur e alcohol) AUDIT-C Answer Date Recorded Q1: How often do you have a drink containing alc ohol? 2-4 times a month 06/06/2024 Q2: How many drinks containi ng alcohol do you have on a typical day when you are drinking? 1 or 2 06/06/2024 Q3: How often do you have si x or more drinks on one occasion? Never 06/06/2024 Personal Safety Answer Date Recorded Have you ever been in or are you currently in a harmful physical or emotional relationship or is someone making you feel afraid or unsafe? 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 Gender Identity Not on file Sexual Orientation Not on file documented as of this encounter Plan of Treatment Not on file documented as of this encounter Procedures Procedure Name Priority Date/Time Associated Diagnosis Comments SCAN - RADIOLOGY/IMAGING 07/13/2024 documented in this encounter Results * SCAN - RADIOLOGY/IMAGING (07/13/2024) Anatomical Region Laterality Modality Other us Provider Scanning Final Result documented in this encounter Visit Diagnoses Not on filedocumented in this encounter Additional Health Concerns Infection Onset Date Last Indicated Resolved Time COVID: Suspected 02/19/2025 02/19/2025 02/19/2025 11:27 PM CDT Norovirus suspected 02/20/2025 02/22/2025 02/23/20 2:55 PM CDT C. difficile suspected 02/20/2025 02/22/202502/22 12:15 PM CDT Ring Surveillance Comment:02/21/2025- [address] ring surveillance. Faviola Smith 02/21/2025 02/21/2025 02/27/2025 4:03 PM C DT documented as of this encounter Care Teams Learning Manager Relationship Specialty Start Date End Date Giuliano Isbell MD [address] [address] PCP - General Family Medicine 07/13/23 Jazmin Durbin RN [id number] [address] [facility] [employer] 03/03/25 03/07/25 documented as of this encounter
--- OUTSIDE RECORDS SUMMARY | 2025-03-12 04:42 | XMS_ITS | Continuity of Care Document ---
Author Organization [facility] Address [address] [place] [address] [place] [address] Phone Care Team Providers Care Livestock Caretaker Name Role Phone Giuliano Isbell MD Unavailable Unavailable Advance Directives Directive Yes / No Effective Date File Name No Information Encounters Encounter Description Practice Location Reason(s) For Visit Diagnoses Date Provider Providers Copied on Encounter [facility], [address] [place], [id number], [place] tel:[phone] [facility] No Information Sukhi Nobles. [address] [facility] [place], [id number], [place]. tel:[phone] Family History Family Member Type Diagnosis Age At Onset No Information Payers Payer name Insurance type Covered libertarian ID Authoriza tion(s) No Information Social History [...]
--- OUTSIDE RECORDS SUMMARY | 2025-03-12 04:42 | XMS_ITS | Clinical Summary ---
Author Organization [facility] Address [address] [place] [id number] Care Team Providers Care Finance Business Manager Name Role Phone Unavailable Primary Care Provider Unavailabl e Social History Tobacco Use Types Packs/Day Years Used Date Smoking Tobacco: Never Assessed Sex and Gender Information Value Date Recorded Sex Assigned at Not on file Legal Sex Male 9:36 PM CDT Gender Identity Not on file Sexual Orientation Not on file Last Filed Vital Signs Vital Sign Reading Time Taken Comments Blood Pressure 146/84 02/10/2017 2:31 PM CDT Pulse 82 02/10/2017 2:31 PM CDT Temperature - - Respiratory Rate - - Oxygen Saturation - - Inhaled Oxygen Concentration - - Weight 116.6 kg (257 lb) 02/10/2017 2:31 PM CDT Height 182.9 cm (6') 02/10/2017 2:31 PM CDT Body Mass Index 34.86 02/10/2017 2:31 PM CDT Plan of Treatment Health Maintenance Due Date Last Done Comments Colorectal Cancer Screening Colonoscopy (10 Years) 1955 Hepatitis C 02/13/1972 DTaP, Tdap and Td Vaccines ( 1 - Tdap) 1973 Pneumococcal Vaccine: 50+ Ye ars (1 of 1 - PCV) 02/13/2004 Zoster Vaccines (1 of 2) 02/13/2004 COVID-19 Vaccine ( - 2023-2 5 season) 2024 RSV Immunization or 60+ Years (1 - 1-dose 75+ series) 2029 Meningococcal B Vaccine Aged Out No l onger eligible based on patient's age to complete this topic Meningococcal Vaccine Aged Out No eva ann eligible based on patient's age to complete this topic RSV Immunizations Under 20 Months Aged Out No longer eligible based on patient's age to complete this topic
[2025-03-12 04:47] LABS: Basophils Percent Auto 0.7 % (0.2-1.2); Eosinophils Absolute Auto 0.1 K/mm3 (0-0.3); Eosinophils Percent Auto 3.6 % (0-4.4); Hematocrit 24.8 % (42.0-52.0); Hemoglobin 7.8 g/dL (14.0-18.0); Lymphocytes Absolute Auto 0.87 K/mm3 (0.9-3.2); Lymphocytes Percent Auto 31.4 % (18.3-44.2); Mean Corpuscular HGB Conc 31.5 g/dl (32-36); Mean Corpuscular Hemoglobin 32.1 pg (26-34); Mean Corpuscular Volume 102.1 fl (80-100); Mean Platelet Volume 11.4 fl (7.4-10.4); Monocytes Absolute Auto 0.5 K/mm3 (0.1-0.6); Monocytes Percent Auto 19.1 % (2.6-8.5); Neutrophils Absolute Auto 1.3 K/mm3 (1.3-6.7); Neutrophils Percent Auto 45.2 % (45.5-73.1); Platelet Count Result 115 k/mm3 (150-375); Red Blood Count 2.43 M/mm3 (4.6-6.20); Red Cell Distribution Width 21.6 % (11.5-14.5); White Blood Count 2.8 K/mm3 (4.5-10.0)
--- NOTE | 2025-03-12 04:48 | ECG_ITS ---
Test Date: 2025-03-12 04:38:32 Measurements Intervals [place] Rate: 54 P: 12 NH: 264 QRS: -58 QRSD: 160 T: 116 QT: 464 QTc: 442 Interpretive Statements SINUS BRADYCARDIA WITH FIRST DEGREE AV BLOCK LEFT AXIS DEVIATION LEFT BUNDLE BRANCH BLOCK BASELINE ARTIFACT- I, II ABNORMAL ECG No previous ECG available for comparison Electronically Signed On 03-12-2025 07:40:09 CDT by Jabari Villaseñor D.O.
[2025-03-12] MEDS: SODIUM CHLORIDE 0.9% IV 1,000 ML 999 ML IV CONT ×3 (04:53→05:35)
--- NOTE | 2025-03-12 04:55 | PC.NURSE ---
patient verbalizing that if something drastic were to happen where he would need life saving measure if he would want medical staff to perform cpr/ intubation. pt verbalized to x2 Rns that he would want cpr and to be intubated. pt is ao x4 upon this conversation. CH RN at bedside to witness this conversation.
[2025-03-12 05:00] LABS: Lactic Acid Reflex 2.9 mmol/L (0.7-2.0)
--- NOTE | 2025-03-12 05:03 | PC.NURSE ---
vrbo insert traylor and 1lns bolus x 1 dose
[2025-03-12 05:05] LABS: INR 1.1; Prothrombin Time 14.8 Seconds (11.1-14.7)
[2025-03-12 05:06] LABS: Partial Thromboplastin Time 31.1 Seconds (22.3-36.8)
[2025-03-12 05:10] LABS: Macrocytosis 2+ (NORMAL); Platelet Estimate Decreased (Adequate)
--- NOTE | 2025-03-12 05:11 | PC.NURSE ---
patient has intermittent episodes of unresponsiveness, pt eyes started to close and patient would not respond to verbal commands. pt did respond to touch. pt states he is really tired. pt is ao x 4 after arousal.
[2025-03-12 05:12] LABS: Schistocytes Rare; Tear Drop Cells 1+
[2025-03-12 05:18] LABS: Add Urine Microscopic? YES; Appearance Urine Clear (Clear); Bilirubin Urine Negative (Negative); Blood Urine Negative (Negative); Color Urine Dark Yellow (Yellow); Glucose Urine UA Negative (Negative); Ketones Urine Trace mg/dL (Negative); Leukocyte Esterase Ur Negative LEU/UL (Negative); Nitrate Urine Negative (Negative); Protein Urine Negative (Negative)
--- NOTE | 2025-03-12 05:52 | ED_ITS ---
HPI - General Adult General Chief complaint: Weakness <Anca Joe MD - Last Filed: 03/12/25 22:36> Stated complaint: gen weakness, hypotension xhours <Anca Joe MD - Last Filed: 03/12/25 22:36> Time Seen by Provider: 03/12/25 04:31 <Anca Joe MD - Last Filed: 03/12/25 22:36> History of Present Illness HPI narrative: Patient is a 70-year-old male who presents to the emergency department this evening complaining of generalized weakness. Patient has a known history of cirrhosis and states that he was recently discharged from [facility] where he was admitted for pneumonia. Patient presents with a very large and distended abdomen, states that this is unusual for him. Patient states that when he was admitted at [facility] his belly was not distended but he was discharged with a distended belly and nothing was done about it. Patient states that he did drink half a pt of vodka prior to arrival to the emergency department. Per EMS report, patient was noted to be hypotensive 80s systolic. Patient does have an open wound/ulcer to his right lower extremity, states that that used to be a CP in wound from lower extremity edema but then he went to an urgent care and they popped it. Currently denies any specific symptoms including any chest pain, and shortness of breath. Despite his distended abdomen, patient is denying any abdominal pain. Denies any dysuria or hematuria. No additional concerns at this time. <Anca Joe MD - Last Filed: 03/12/25 22:36> Related Data Home medications: Home Medications ?Medication ?Instructions ?Recorded ?Confirmed ?Last Taken ?Type atorvastatin 10 mg tablet 10 mg PO DAILY 10/30/22 03/12/25 01/03/24 History clopidogrel 75 mg tablet 75 mg PO DAILY 10/30/22 03/12/25 12/30/23 History insulin lispro protamine-lispro 40 unit subcut BID 10/30/22 03/12/25 01/04/24 History 100 unit/mL (75-25) subcutaneous susp (Humalog Mix 75-25(U-100)Insuln) albuterol sulfate 90 mcg/actuation 1 puff inhalation Q4-6H PRN 12/16/23 03/12/25 Unknown History aerosol inhaler Shortness Of Breath Or Wheezing carvedilol 6.25 mg tablet 3.125 mg PO BID 12/16/23 03/12/25 01/04/24 History nitroglycerin 0.4 mg sublingual 0.4 mg sublingual PRN PRN Chest 12/16/23 03/12/25 Unknown History tablet Pain sacubitril 24 mg-valsartan 26 mg 1 tablet PO BID 12/16/23 03/12/25 01/04/24 History tablet (Entresto) allopurinol 300 mg tablet 300 mg PO DAILY 03/12/25 03/12/25 Unknown History furosemide 20 mg tablet 20 mg PO Q12H 03/12/25 03/12/25 03/11/25 History hydrocodone 10 mg-acetaminophen 10 - 325 tablet PO BID PRN pain 03/12/25 03/12/25 03/11/25 History 325 mg tablet olanzapine 10 mg tablet 10 mg PO HS 03/12/25 03/12/25 Unknown History pantoprazole 40 mg tablet,delayed 40 mg PO Q12H 03/12/25 03/12/25 Unknown History release <Anca Joe MD - Last Filed: 03/12/25 22:36> Allergies/adverse reactions: Allergies Allergy/AdvReac Type Severity Reaction Status Date / Time Penicillins Allergy Unknown Verified 03/12/25 12:03 <Anca Joe MD - Last Filed: 03/12/25 22:36> Review of Systems 2 Review of Systems: All systems are reviewed and are negative unless stated otherwise in the HPI. <Anca Joe MD - Last Filed: 03/12/25 22:36> PMFSH Past Medical History Medical History: Medical History (Updated 03/12/25 @ 11:30 by Jacqui Roberto MD) Cirrhosis Colon polyp Osteoporosis Type 2 diabetes mellitus with hyperglycemia Tobacco use disorder RUQ abdominal pain Overweight (03/31/16) MCFP (current) use of insulin IDDM (insulin dependent diabetes mellitus) Gout, unspecified Gallstones Essential (primary) hypertension Encounter for screening colonoscopy Encounter for current manager intermediate use of antiplatelet drug Dietary counseling and surveillance (08/08/16) Chronic obstructive pulmonary disease, unspecified Bipolar disorder, unspecified <Anca Joe MD - Last Filed: 03/12/25 22:36> Surgical History Surgical History: Surgical History History of shoulder surgery biceps tendon repair History of cervical spinal surgery History of carpal tunnel release History of heart bypass surgery 5 way Hx of CABG <Anca Joe MD - Last Filed: 03/12/25 22:36> Family History Family History: Family History Mother Family history of chronic obstructive pulmonary disease Patient's mother is Father Family history of chronic obstructive pulmonary disease Patient's father is Other Hypertension <Anca Joe MD - Last Filed: 03/12/25 22:36> Social History Social History: Social History Smoking packs per day: 0.5 Smoking cigarettes per day: 10.0 Smoking status: Current every day smoker Tobacco type: cigarettes Alcohol intake: never Substance use: never Substance use type: does not use Do You Feel Safe in your Home?: Yes Lack of Transportation: No Lack of Food: Never True Current Housing: I Have Housing Concerned About Future Housing: No Difficulty Paying Gas/Electric Bills: No Difficulty Paying for Meds: No Currently Unemployed: No Education: Decline to Answer Difficulty w/ Childcare or Family Care: No Living arrangements: alone Spiritual care concerns: No <Anca Joe MD - Last Filed: 03/12/25 22:36> Exam 2 Narrative: General: Alert, awake, afebrile, in no acute distress, obese, jaundice. HEENT: PERRL, no rhinorrhea, no post nasal drip, oropharynx clear. Neck: Trachea midline, no JVD, no lymphadenopathy. Cardiovascular: Regular rate and rhythm, no murmurs, rubs or gallops, no peripheral edema. Respiratory: Clear to auscultation bilaterally, no tachypnea, no wheezing, no rhonchi, no rubs, no respiratory distress. Abdomen: Hard, nontender, distended, no rebound, no guarding, no peritoneal signs. Musculoskeletal: No joint swelling or deformity, normal muscle tone. Skin: Open skin wound to the right garrett region measuring approximately 10 by 7 cm. Psychiatric: Alert and oriented, normal behavior and judgment for situation. Neurological: Alert and oriented to person, place, and time. Follows all commands. No focal deficits, speech is clear and fluent. <Anca Joe MD - Last Filed: 03/12/25 22:36> Course Reevaluation(s) Reevaluation #1: Patient signed out to me pending imaging and disposition. I did review CT imaging independently, noted ascites, he does have a pneumonia, central line in good placement without pneumothorax, prior ER physician already started broad-spectrum antibiotics as well as place central line with currently low-dose Levophed running. Discussed patient and family to adamantly refuse transfer back to [facility] but would be willing to go to [facility]. Regardless since he is still actively drinking alcohol he would not be liver transplant candidate. I called [facility] who also do not have liver specialist. Discussed with GI Dr. Gonsalez, ICU doctor [facility], who agreed to consult on patient since he is not going to be able to be transferred anywhere in the vicinity, and hospitalist who agrees to admission. Patient and family are happy with this plan. <Roseline Beatty MD - Last Filed: 03/12/25 08:20> Vital Signs Vital signs: Vital Signs Temperature 97.8 F 03/12/25 04:22 Pulse Rate 56 L 03/12/25 04:22 Respiratory Rate 16 03/12/25 04:22 Pulse Oximetry 100 03/12/25 04:22 Oxygen Delivery Room Air 03/12/25 04:22 Temperature 98.6 F 03/12/25 20:00 Pulse Rate 87 03/12/25 22:00 Respiratory Rate 16 03/12/25 22:00 Blood Pressure 120/69 03/12/25 22:00 Pulse Oximetry 100 03/12/25 22:00 Oxygen Delivery Room Air 03/12/25 20:09 Fraction of Inspired Oxygen 21 03/12/25 20:00 <Anca Joe MD - Last Filed: 03/12/25 22:36> Vital Signs Temperature 97.8 F 03/12/25 04:22 Pulse Rate 56 L 03/12/25 04:22 Respiratory Rate 16 03/12/25 04:22 Pulse Oximetry 100 03/12/25 04:22 Oxygen Delivery Room Air 03/12/25 04:22 Temperature 98.6 F 03/12/25 20:00 Pulse Rate 87 03/12/25 22:00 Respiratory Rate 16 03/12/25 22:00 Blood Pressure 120/69 03/12/25 22:00 Pulse Oximetry 100 03/12/25 22:00 Oxygen Delivery Room Air 03/12/25 20:09 Fraction of Inspired Oxygen 21 03/12/25 20:00 <Roseline Beatty MD - Last Filed: 03/12/25 08:20> Procedures Central Line Placement Right IJ: Central Line Date: 03/12/25 <Anca Joe MD - Last Filed: 03/12/25 22:36> Central Line Time: 07:07 <Anca Joe MD - Last Filed: 03/12/25 22:36> Discussed w/ the patient/family/POA,the placement of a central venous catheter, including its clinical necessity/indication & associated potential risks, benifits and alternatives.: Yes <Anca Joe MD - Last Filed: 03/12/25 22:36> The patient/family/POA understand(s) and acknowledge(s) the need to proceed with central venous catheter insertion as an important element of the patient's clinical management.: Yes <Anca Joe MD - Last Filed: 03/12/25 22:36> Time Out Performed: Yes <Anca Joe MD - Last Filed: 03/12/25 22:36> Patient Placed on Monitor/Pulse Ox: Yes <Anca Joe MD - Last Filed: 03/12/25 22:36> Max. Sterile Barrier Technique: Caps, large sterile sheet and hand hygiene <Anca Joe MD - Last Filed: 03/12/25 22:36> Central Line Prep: 2% chlorhexidine scrub and sterile drapes applied <MD Dylan Damon Last Filed: 03/12/25 22:36> Technique: US-Guided <Anca Joe MD - Last Filed: 03/12/25 22:36> Local Anesthetic: lidocaine 1% <Anca Joe MD - Last Filed: 03/12/25 22:36> Amount of anesthesia used (mL): 2 <MD Dylan Damon Last Filed: 03/12/25 22:36> Ultrasound Used for Placement: Yes <MD Dylan Damon Last Filed: 03/12/25 22:36> Central Line Lumen Inserted: triple <MD Dylan Damon Last Filed: 03/12/25 22:36> Post Procedure: sutured in place <MD Dylan Damon Last Filed: 03/12/25 22:36> Post Procedure X-Ray: tip of catheter in good position <MD Dylan Damon Last Filed: 03/12/25 22:36> Patient Tolerated Procedure: well <MD Dylan Damon Last Filed: 03/12/25 22:36> Complications: none <MD Dylan Damon Last Filed: 03/12/25 22:36> Medical Decision Making MDM Narrative Medical decision making narrative: The patient was evaluated by myself in the emergency department. History is obtained from patient who is an independent historian and physical exam was performed. External medical records were reviewed at this time. IV was established and pertinent tests were ordered. Patient was administered full sepsis bolus with 3 L of normal saline. Patient was also administered DuoNeb breathing treatment and 125 mg of IV Solu-Medrol diffuse wheezing. Patient continues to remain hypertensive and at this time he was started on vasopressors with norepinephrine. Central line was placed by me as detailed under procedural note. EKG was obtained which revealed sinus bradycardia at a rate of 54 beats per minute and first-degree AV block, no evidence of acute ischemia. EKG was independently interpreted by me and is currently pending official cardiology read. Chart review revealed scant EKG from April 13, 2017 also revealing sinus bradycardia with 1st degree AV block at a rate of 57 beats per minute. Laboratory results obtained revealing a hemoglobin of 7.8, patient's last documented hemoglobin was noted to be 16 on July of 2024. Platelet count 115, patient does have a history of thrombocytopenia and was noted to be 93 July of 2024. Lactic acid 2.9. Urinalysis revealed trace ketones otherwise unremarkable. Imaging studies obtained included CT chest abdomen pelvis with IV contrast which was independently interpreted by me revealing [finding], which is pending final radiology interpretation. Differential diagnosis considerations include cirrhosis, ascites, spontaneous bacterial peritonitis, septic shock. Comorbidities impacting this visit include history of cirrhosis. I have evaluated and discussed social determinants of health with the patient that could potentially impact subsequent diagnosis and treatment plans. On repeat assessment of the patient, reevaluation revealed that the patient is doing well and is in no acute distress. Patient symptoms have improved since he arrived to our emergency department. Repeat vital signs were all reviewed and noted to be stable. Patient was signed out to AM ED physician pending CT results. <Anca Joe MD - Last Filed: 03/12/25 22:36> Vital Signs Vital Signs: Vital Signs Temperature 97.8 F 03/12/25 04:22 Pulse Rate 56 L 03/12/25 04:22 Respiratory Rate 16 03/12/25 04:22 Pulse Oximetry 100 03/12/25 04:22 Oxygen Delivery Room Air 03/12/25 04:22 Temperature 98.6 F 03/12/25 20:00 Pulse Rate 87 03/12/25 22:00 Respiratory Rate 16 03/12/25 22:00 Blood Pressure 120/69 03/12/25 22:00 Pulse Oximetry 100 03/12/25 22:00 Oxygen Delivery Room Air 03/12/25 20:09 Fraction of Inspired Oxygen 21 03/12/25 20:00 <Anca Joe MD - Last Filed: 03/12/25 22:36> Vital Signs Temperature 97.8 F 03/12/25 04:22 Pulse Rate 56 L 03/12/25 04:22 Respiratory Rate 16 03/12/25 04:22 Pulse Oximetry 100 03/12/25 04:22 Oxygen Delivery Room Air 03/12/25 04:22 Temperature 98.6 F 03/12/25 20:00 Pulse Rate 87 03/12/25 22:00 Respiratory Rate 16 03/12/25 22:00 Blood Pressure 120/69 03/12/25 22:00 Pulse Oximetry 100 03/12/25 22:00 Oxygen Delivery Room Air 03/12/25 20:09 Fraction of Inspired Oxygen 21 03/12/25 20:00 <Roseline Beatty MD - Last Filed: 03/12/25 08:20> Lab Data Result diagrams: 03/12/25 10:49 03/12/25 13:59 <Anca Joe MD - Last Filed: 03/12/25 22:36> Labs: Lab Results 03/12/25 03/12/25 03/12/25 Range/Units 04:41 05:08 06:06 WBC 2.8 L (4.5-10.0) K/mm3 RBC 2.43 L (4.6-6.20) M/mm3 Hgb 7.8 L D (14.0-18.0) g/dL Hct 24.8 L (42.0-52.0) % MCV 102.1 H (80-100) fl MCH 32.1 (26-34) pg MCHC 31.5 L (32-36) g/dl RDW 21.6 H (11.5-14.5) % Plt Count 115 L (150-375) k/mm3 MPV 11.4 H (7.4-10.4) fl Immature Gran % (Auto) 0.0 (0-0.5) % Neut % (Auto) 45.2 L (45.5-73.1) % Lymph % (Auto) 31.4 (18.3-44.2) % [place] % (Auto) 19.1 H (2.6-8.5) % Eos % (Auto) 3.6 (0-4.4) % Baso % (Auto) 0.7 (0.2-1.2) % Lymph # (Auto) 0.87 L (0.9-3.2) K/mm3 [place] # (Auto) 0.5 (0.1-0.6) K/mm3 Eos # (Auto) 0.1 (0-0.3) K/mm3 Baso # (Auto) 0.0 (0.0-0.1) K/mm3 Abs Immat Gran (auto) 0.00 (0.00-0.031) K/mm3 Absolute Neuts (auto) 1.3 (1.3-6.7) K/mm3 Absolute Nucleated RBC 0.000 (0.0-0.012) K/mm3 Band Neutrophils % Not Reportable Nucleated RBC % 0.0 (0.0-0.2) % Platelet Estimate Decreased (Adequate) Macrocytosis 2+ (NORMAL) Tear Drop Cells 1+ Schistocytes Rare PT 14.8 H (11.1-14.7) Seconds INR 1.1 APTT 31.1 (22.3-36.8) Seconds Sodium 126 L (137-145) mmol/L Potassium 5.1 H (3.4-5.0) mmol/L Chloride 102 (98-107) mmol/L Carbon Dioxide 17 L (22-30) mmol/L Anion Gap 7 (4-12) mmol/L BUN 21 H D (9-20) mg/dL Creatinine 1.45 H (0.7-1.3) mg/dL Estim Creat Clear Calc 56 ml/min Estimated GFR 48 L (59 - ) Glucose 129 H (65-110) mg/dL Lactic Acid 2.9 H (0.7-2.0) mmol/L Calcium 7.0 L (8.4-10.2) mg/dL Magnesium 2.4 H (1.6-2.3) mg/dL Total Bilirubin 0.6 (0.2-1.3) mg/dL AST 41 (17-59) U/L ALT 49 (6-50) U/L Alkaline Phosphatase 166 H (38-126) U/L Ammonia 63 H (9-30) umol/L Total Protein 6.0 L (6.3-8.2) g/dL Albumin 2.4 L (3.5-5.1) g/dL Urine Color Dark yellow (Yellow) Urine Appearance Clear (Clear) Urine pH 5.0 (5.0-9.0) Ur Specific [place] 1.020 (1.001-1.035) Urine Protein Negative (Negative) mg/dL Urine Glucose (UA) Negative (Negative) mg/dL Urine Ketones Trace H (Negative) mg/dL Ur Blood (Man) Negative (Negative) Urine Nitrate Negative (Negative) Urine Bilirubin Negative (Negative) Urine Urobilinogen 1.0 (<2.0) mg/dL Leukocyte Esterase Rfl Negative (Negative) ERNST/UL 03/12/ Range/Units 06:55 WBC (4.5-10.0) K/mm3 RBC (4.6-6.20) M/mm3 Hgb (14.0-18.0) g/dL Hct (42.0-52.0) % MCV (80-100) fl MCH (26-34) pg MCHC (32-36) g/dl RDW (11.5-14.5) % Plt Count (150-375) k/mm3 MPV (7.4-10.4) fl Immature Gran % (Auto) (0-0.5) % Neut % (Auto) (45.5-73.1) % Lymph % (Auto) (18.3-44.2) % [place] % (Auto) (2.6-8.5) % Eos % (Auto) (0-4.4) % Baso % (Auto) (0.2-1.2) % Lymph # (Auto) (0.9-3.2) K/mm3 [place] # (Auto) (0.1-0.6) K/mm3 Eos # (Auto) (0-0.3) K/mm3 Baso # (Auto) (0.0-0.1) K/mm3 Abs Immat Gran (auto) (0.00-0.031) K/mm3 Absolute Neuts (auto) (1.3-6.7) K/mm3 Absolute Nucleated RBC (0.0-0.012) K/mm3 Band Neutrophils % Nucleated RBC % (0.0-0.2) % Platelet Estimate (Adequate) Macrocytosis (NORMAL) Tear Drop Cells Schistocytes PT (11.1-14.7) Seconds INR APTT (22.3-36.8) Seconds Sodium (137-145) mmol/L Potassium (3.4-5.0) mmol/L Chloride (98-107) mmol/L Carbon Dioxide (22-30) mmol/L Anion Gap (4-12) mmol/L BUN (9-20) mg/dL Creatinine (0.7-1.3) mg/dL Estim Creat Clear Calc ml/min Estimated GFR (59 - ) Glucose (65-110) mg/dL Lactic Acid 2.2 H (0.7-2.0) mmol/L Calcium (8.4-10.2) mg/dL Magnesium (1.6-2.3) mg/dL Total Bilirubin (0.2-1.3) mg/dL AST (17-59) U/L ALT (6-50) U/L Alkaline Phosphatase (38-126) U/L Ammonia (9-30) umol/L Total Protein (6.3-8.2) g/dL Albumin (3.5-5.1) g/dL Urine Color (Yellow) Urine Appearance (Clear) Urine pH (5.0-9.0) Ur Specific [place] (1.001-1.035) Urine Protein (Negative) mg/dL Urine Glucose (UA) (Negative) mg/dL Urine Ketones (Negative) mg/dL Ur Blood (Man) (Negative) Urine Nitrate (Negative) Urine Bilirubin (Negative) Urine Urobilinogen (<2.0) mg/dL Leukocyte Esterase Rfl (Negative) ERNST/UL <Anca Joe MD - Last Filed: 03/12/25 22:36> Lab Results 03/12/25 03/12/25 03/12/25 Range/Units 04:41 05:08 06:06 WBC 2.8 L (4.5-10.0) K/mm3 RBC 2.43 L (4.6-6.20) M/mm3 Hgb 7.8 L D (14.0-18.0) g/dL Hct 24.8 L (42.0-52.0) % MCV 102.1 H (80-100) fl MCH 32.1 (26-34) pg MCHC 31.5 L (32-36) g/dl RDW 21.6 H (11.5-14.5) % Plt Count 115 L (150-375) k/mm3 MPV 11.4 H (7.4-10.4) fl Immature Gran % (Auto) 0.0 (0-0.5) % Neut % (Auto) 45.2 L (45.5-73.1) % Lymph % (Auto) 31.4 (18.3-44.2) % [place] % (Auto) 19.1 H (2.6-8.5) % Eos % (Auto) 3.6 (0-4.4) % Baso % (Auto) 0.7 (0.2-1.2) % Lymph # (Auto) 0.87 L (0.9-3.2) K/mm3 [place] # (Auto) 0.5 (0.1-0.6) K/mm3 Eos # (Auto) 0.1 (0-0.3) K/mm3 Baso # (Auto) 0.0 (0.0-0.1) K/mm3 Abs Immat Gran (auto) 0.00 (0.00-0.031) K/mm3 Absolute Neuts (auto) 1.3 (1.3-6.7) K/mm3 Absolute Nucleated RBC 0.000 (0.0-0.012) K/mm3 Band Neutrophils % Not Reportable Nucleated RBC % 0.0 (0.0-0.2) % Platelet Estimate Decreased (Adequate) Macrocytosis 2+ (NORMAL) Tear Drop Cells 1+ Schistocytes Rare PT 14.8 H (11.1-14.7) Seconds INR 1.1 APTT 31.1 (22.3-36.8) Seconds Sodium 126 L (137-145) mmol/L Potassium 5.1 H (3.4-5.0) mmol/L Chloride 102 (98-107) mmol/L Carbon Dioxide 17 L (22-30) mmol/L Anion Gap 7 (4-12) mmol/L BUN 21 H D (9-20) mg/dL Creatinine 1.45 H (0.7-1.3) mg/dL Estim Creat Clear Calc 56 ml/min Estimated GFR 48 L (59 - ) Glucose 129 H (65-110) mg/dL Lactic Acid 2.9 H (0.7-2.0) mmol/L Calcium 7.0 L (8.4-10.2) mg/dL Magnesium 2.4 H (1.6-2.3) mg/dL Total Bilirubin 0.6 (0.2-1.3) mg/dL AST 41 (17-59) U/L ALT 49 (6-50) U/L Alkaline Phosphatase 166 H (38-126) U/L Ammonia 63 H (9-30) umol/L Total Protein 6.0 L (6.3-8.2) g/dL Albumin 2.4 L (3.5-5.1) g/dL Urine Color Dark yellow (Yellow) Urine Appearance Clear (Clear) Urine pH 5.0 (5.0-9.0) Ur Specific [place] 1.020 (1.001-1.035) Urine Protein Negative (Negative) mg/dL Urine Glucose (UA) Negative (Negative) mg/dL Urine Ketones Trace H (Negative) mg/dL Ur Blood (Man) Negative (Negative) Urine Nitrate Negative (Negative) Urine Bilirubin Negative (Negative) Urine Urobilinogen 1.0 (<2.0) mg/dL Leukocyte Esterase Rfl Negative (Negative) ERNST/UL 04/20/25 Range/Units 06:55 WBC (4.5-10.0) K/mm3 RBC (4.6-6.20) M/mm3 Hgb (14.0-18.0) g/dL Hct (42.0-52.0) % MCV (80-100) fl MCH (26-34) pg MCHC (32-36) g/dl RDW (11.5-14.5) % Plt Count (150-375) k/mm3 MPV (7.4-10.4) fl Immature Gran % (Auto) (0-0.5) % Neut % (Auto) (45.5-73.1) % Lymph % (Auto) (18.3-44.2) % [place] % (Auto) (2.6-8.5) % Eos % (Auto) (0-4.4) % Baso % (Auto) (0.2-1.2) % Lymph # (Auto) (0.9-3.2) K/mm3 [place] # (Auto) (0.1-0.6) K/mm3 Eos # (Auto) (0-0.3) K/mm3 Baso # (Auto) (0.0-0.1) K/mm3 Abs Immat Gran (auto) (0.00-0.031) K/mm3 Absolute Neuts (auto) (1.3-6.7) K/mm3 Absolute Nucleated RBC (0.0-0.012) K/mm3 Band Neutrophils % Nucleated RBC % (0.0-0.2) % Platelet Estimate (Adequate) Macrocytosis (NORMAL) Tear Drop Cells Schistocytes PT (11.1-14.7) Seconds INR APTT (22.3-36.8) Seconds Sodium (137-145) mmol/L Potassium (3.4-5.0) mmol/L Chloride (98-107) mmol/L Carbon Dioxide (22-30) mmol/L Anion Gap (4-12) mmol/L BUN (9-20) mg/dL Creatinine (0.7-1.3) mg/dL Estim Creat Clear Calc ml/min Estimated GFR (59 - ) Glucose (65-110) mg/dL Lactic Acid 2.2 H (0.7-2.0) mmol/L Calcium (8.4-10.2) mg/dL Magnesium (1.6-2.3) mg/dL Total Bilirubin (0.2-1.3) mg/dL AST (17-59) U/L ALT (6-50) U/L Alkaline Phosphatase (38-126) U/L Ammonia (9-30) umol/L Total Protein (6.3-8.2) g/dL Albumin (3.5-5.1) g/dL Urine Color (Yellow) Urine Appearance (Clear) Urine pH (5.0-9.0) Ur Specific [place] (1.001-1.035) Urine Protein (Negative) mg/dL Urine Glucose (UA) (Negative) mg/dL Urine Ketones (Negative) mg/dL Ur Blood (Man) (Negative) Urine Nitrate (Negative) Urine Bilirubin (Negative) Urine Urobilinogen (<2.0) mg/dL Leukocyte Esterase Rfl (Negative) ERNST/UL <Roseline Beatty MD - Last Filed: 03/12/25 08:20> Critical Care Time Critical Care Time Critical Care Time: Yes <Roseline Beatty MD - Last Filed: 03/12/25 08:20> Total Critical Care Time: 71 <Roseline Beatty MD - Last Filed: 03/12/25 08:20> Discharge Plan Discharge Clinical Impression: Cirrhosis, Sepsis, Hypotension, Pneumonia <Anca Joe MD - Last Filed: 03/12/25 22:36> Patient Disposition: Still a Patient <Anca Joe MD - Last Filed: 03/12/25 22:36> Condition: Stable <Anca Joe MD - Last Filed: 03/12/25 22:36>
[2025-03-12 06:24] LABS: Alanine Aminotransferase 49 U/L (6-50); Albumin Level 2.4 g/dL (3.5-5.1); Alkaline Phosphatase 166 U/L (38-126); Ammonia 63 umol/L (9-30); Anion Gap 7 mmol/L (4-12); Aspartate Amino Transferase 41 U/L (17-59); Bilirubin,Total 0.6 mg/dL (0.2-1.3); Blood Urea Nitrogen 21 mg/dL (9-20); Carbon Dioxide 17 mmol/L (22-30); Chloride 102 mmol/L (98-107); Estimated CRCL calculation 56 ml/min; Estimated Glomerular Filt Rate 48; Glucose 129 mg/dL (65-110); Magnesium 2.4 mg/dL (1.6-2.3); Potassium 5.1 mmol/L (3.4-5.0); Sodium 126 mmol/L (137-145)
[2025-03-12] MEDS: PIPERACILLIN/TAZ 4.5G/NS 100ML 4.5 GM/100 ML BAG IVPB (06:25)
[2025-03-12] MEDS: NOREPINEPHRINE 8 MG/D5W 250 ML 8 MG/250 ML BAG 9.38 MG IV CONT (06:31)
--- NOTE | 2025-03-12 06:33 | PC.NURSE ---
rn double checked john alfaro
[2025-03-12 06:44] LABS: Reflex Lactic Acid Yes or No Add Lactic
[2025-03-12 07:12] LABS: Lactic Acid 2.2 mmol/L (0.7-2.0)
[2025-03-12] MEDS: IPRATROPIUM 0.5 MG/ALBUTEROL SULFATE 2.5 MG AMPUL.NEB 3 ML INHALATION ×4 (07:26→20:05)
[2025-03-12] MEDS: methylPREDNISolone SOD SUCC 125 MG VIAL IV PUSH (07:31)
[2025-03-12] MEDS: VANCOMYCIN 1,250 MG/NS 250 ML 1,250 MG/250 ML BAG 166.67 MG IVPB ×2 (07:40→09:56)
[2025-03-12] MEDS: cefTRIAXone 2 GM/NS 100 ML 2 GM/100 ML BAG IVPB (10:45)
--- NOTE | 2025-03-12 10:55 | WPDCNINT ---
Assessment and Plan Assessment and plan (1) Septic shock: Code(s): A41.9 - Sepsis, unspecified organism; R65.21 - Severe sepsis with septic shock Status: Acute Assessment and Plan: 03/12: Patient presented with generalized weakness, nausea, vomiting. -was recently discharged 3 days ago from [facility] where he was admitted for pneumonia -in the ED patient was found to be hypotensive with systolic blood pressures in the 70-80s -UA was unremarkable -received 3 L IV fluid bolus in the ER despite which his blood pressures were low, right IJ central line was inserted -patient started on Levophed will maintain MAP > 65 mm Hg at all times for adequate end organ perfusion -patient has significant amount of abdominal distention with ascites -patient started on ceftriaxone, Flagyl, vanc, (03/12) -etiology pneumonia, ?SBP, skin infection -will give albumin for intravascular volume expansion -03/12: Blood cultures have been obtained (2) Pneumonia: Code(s): J18.9 - Pneumonia, unspecified organism Status: Acute Assessment and Plan: Continue antibiotics as above 03/12: CT scan of chest abdomen pelvis IMPRESSION: 1. Lingular airspace disease, compatible with pneumonia. New nodular densities right upper lobe may also be infectious/inflammatory, although metastatic disease not excluded. 2: Stable 12 mm pleural-based right lower lobe nodule, likely benign. 3: Cirrhosis of the liver with moderate ascites. (3) Ascites: Code(s): R18.8 - Other ascites Status: Acute Assessment and Plan: Will have Interventional Radiology perform a paracentesis -labs have been ordered -likely related to cirrhosis -MELD score is 11 -GI has been consulted (4) Diabetes: Code(s): E11.9 - Type 2 diabetes mellitus without complications Status: Acute Assessment and Plan: Patient history of diabetes, -Accu-Cheks and sliding scale insulin -check A1c (5) Essential (primary) hypertension: Code(s): I10 - Essential (primary) hypertension Status: Acute Assessment and Plan: History of essential hypertension, will hold all antihypertensive as patient is on pressors -patient does take carvedilol, clopidogrel, Entresto at home (6) Chronic obstructive pulmonary disease, unspecified: Code(s): J44.9 - Chronic obstructive pulmonary disease, unspecified Status: Acute Assessment and Plan: Significant expiratory wheezing, could be related to cigarette smoking/COPD -Continue bronchodilators -added Solu-Medrol for possible COPD exacerbation (7) Acute kidney injury: Code(s): N17.9 - Acute kidney failure, unspecified Status: Acute Assessment and Plan: 03/12: Acute kidney injury on admission likely related to hypotension, medications that he takes at home, carvedilol, Entresto, patient also history of hypertension diabetes which could be a contributing factor -patient has been adequately fluid-resuscitated -CT scan of the abdomen and pelvis did not show any hydronephrosis -continue to monitor urine output, electrolytes and renal 5 (8) Cirrhosis: Code(s): K74.60 - Unspecified cirrhosis of liver Status: Acute Assessment and Plan: Patient has a history of cirrhosis, states he has been told that his cirrhosis is due to medical issues -patient states he has never drank alcohol except night prior to admission he drank half a pint of vodka (9) Encounter for tobacco use cessation counseling: Code(s): Z71.6 - Tobacco abuse counseling Status: Acute Assessment and Plan: Patient smokes 1 pack of cigarettes per day, occasionally smokes marijuana -I counseled patient for cessation of tobacco use. He is going to think about it Plan DVT prophylaxis: Lovenox Stress ulcer prophylaxis: Protonix Nutrition: Ice chips Code Status: Full Critical Care Time Spent: 49 minutes Due to a high probability of clinically significant, life threatening deterioration, the patient required my highest level of preparedness to intervene emergently and I personally spent this critical care time directly and personally managing the patient. This critical care time included obtaining a history; examining the patient; pulse oximetry; ordering and review of studies; arranging urgent treatment with development of a management plan; evaluation of patient's response to treatment; frequent reassessment; and discussions with other providers. It was exclusive of separately billable procedures and treating other patients and teaching time. Please see Assessment and Plan section and the rest of the note for further information on patient assessment and treatment This dictation may have been done utilizing a voice recognition system. Attempts have been made to correct errors. However, there may be uncorrected grammatical, spelling, and recognitions errors present. Armature Varnisher Consult Note Consult date: 03/12/25 Reason for consult: Septic shock, pneumonia, cirrhosis, ascites, peripheral edema/anasarca, generalized weakness HPI: Julius Campos Jr. is a 70 year old male patient has a history of cirrhosis, type 2 diabetes, tobacco use disorder, gout, essential hypertension, COPD, bipolar disorder presented the ED on 03/12/2025 with complains of generalized weakness, nausea, vomiting, abdominal distension. Off note, patient was recently discharged from [facility] 3 days ago where he was admitted for pneumonia. In the ER patient was found to be hypotensive with systolic in the 80s, bradycardia in the 50s, adequate O2 sats on room. Patient received 3 L IV fluid bolus, patient remained hypotensive, central line was inserted in the right IJ and patient was started on Levophed. Patient started on Zosyn and vancomycin. WBC count 2.8, hemoglobin 7.8, platelets 115. INR 1.1, sodium 126, potassium 5.1, CO2 17, BUN 21, creatinine 1.45, lactic 2.9, repeat lactic 2.2, calcium 7.0, AST ALT and bilirubin were within normal limits. Ammonia level was 63. Albumin of 2.4. UA was not reflective of UTI. Chest x-ray shows cardiomegaly with interstitial edema. CT scan of the abdomen and pelvis showed lingular airspace disease compatible with pneumonia. New nodular densities right upper lobe may also be infectious/inflammatory, although metastatic disease not excluded. Stable 12 mm pleural based right lower lobe nodule likely benign. Cirrhosis of the liver with moderate ascites. Patient was transferred to the ICU for further management Patient seen and examined the ICU upon arrival, states he feels much better after receiving fluids. He did have half a pint of vodka last night, he stated he wanted to just sleep well. He otherwise states he has never been a drinker. He stated he was told at his cirrhosis was according to medical disease. Smokes 1 packet of cigarettes per day, occasionally smokes pot, also has used marijuana gummies. His ex- and his son live with him. Patient currently denies any chest pain, shortness a with, abdominal pain, nausea, vomiting. States his abdominal distention is new, he has also had lower extremity edema with a blister that popped on his right garrett. Patient is awake, alert, able to answer questions appropriately, oriented, nonfocal Review of Systems Review of Systems: All systems reviewed & are unremarkable except as noted in HPI and below PMFSH Past Medical History Medical History (Updated 03/12/25 @ 11:30 by Jacqui Roberto MD) Cirrhosis Colon polyp Osteoporosis Type 2 diabetes mellitus with hyperglycemia Tobacco use disorder RUQ abdominal pain Overweight (03/31/16) assisted (current) use of insulin IDDM (insulin dependent diabetes mellitus) Gout, unspecified Gallstones Essential (primary) hypertension Encounter for screening colonoscopy Encounter for current long term care phlebotomist use of antiplatelet drug Dietary counseling and surveillance (08/08/16) Chronic obstructive pulmonary disease, unspecified Bipolar disorder, unspecified Surgical History Surgical History History of shoulder surgery biceps tendon repair History of cervical spinal surgery History of carpal tunnel release History of heart bypass surgery 5 way Hx of CABG Family History Family History Mother Family history of chronic obstructive pulmonary disease Patient's mother is Father Family history of chronic obstructive pulmonary disease Patient's father is Other Hypertension Social History Social History Smoking packs per day: 1 Smoking cigarettes per day: 20.0 Smoking status: Current every day smoker Tobacco type: cigarettes Alcohol intake: former Substance use: current Substance use type: marijuana Lack of Transportation: No Lack of Food: Never True Current Housing: I Have Housing Concerned About Future Housing: No Difficulty Paying Gas/Electric Bills: No Difficulty Paying for Meds: No Currently Unemployed: YES Education: Trade/Vocational Certificate Difficulty w/ Childcare or Family Care: No Living arrangements: alone Spiritual care concerns: No Meds Home Medications and Allergies Home Medications ?Medication ?Instructions ?Recorded ?Confirmed ?Type atorvastatin 10 mg tablet 10 mg PO DAILY 10/30/22 03/12/25 History clopidogrel 75 mg tablet 75 mg PO DAILY 10/30/22 03/12/25 History insulin lispro protamine-lispro 40 unit subcut BID 10/30/22 03/12/25 History 100 unit/mL (75-25) subcutaneous susp (Humalog Mix 75-25(U-100)Insuln) albuterol sulfate 90 mcg/actuation 1 puff inhalation Q4-6H PRN 12/16/23 03/12/25 History aerosol inhaler Shortness Of Breath Or Wheezing carvedilol 6.25 mg tablet 3.125 mg PO BID 12/16/23 03/12/25 History nitroglycerin 0.4 mg sublingual 0.4 mg sublingual PRN PRN Chest 12/16/23 03/12/25 History tablet Pain sacubitril 24 mg-valsartan 26 mg 1 tablet PO BID 12/16/23 03/12/25 History tablet (Entresto) allopurinol 300 mg tablet 300 mg PO DAILY 03/12/25 03/12/25 History olanzapine 10 mg tablet 10 mg PO HS 03/12/25 03/12/25 History pantoprazole 40 mg tablet,delayed 40 mg PO Q12H 03/12/25 03/12/25 History release Allergies Allergy/AdvReac Type Severity Reaction Status Date / Time Penicillins Allergy Unknown Verified 01/04/24 12:10 Vital Signs Vital Signs - 24 hr 03/12/25 04:22 03/12/25 04:29 03/12/25 04:29 Temperature 97.8 F Pulse Rate 56 L 55 L Respiratory Rate 16 Blood Pressure Pulse Oximetry 100 98 Oxygen Delivery Room Air Room Air Fraction of Inspired Oxygen 03/12/25 04:45 03/12/25 04:46 03/12/25 04:49 Temperature Pulse Rate 56 L 48 L 57 L Respiratory Rate 18 17 20 Blood Pressure 81/50 L 81/50 L Pulse Oximetry 92 92 94 Oxygen Delivery Fraction of Inspired Oxygen 03/12/25 04:50 03/12/25 04:52 03/12/25 04:56 Temperature Pulse Rate 60 59 L 59 L Respiratory Rate 18 17 12 Blood Pressure 83/54 L 87/50 L 87/54 L Pulse Oximetry 93 95 94 Oxygen Delivery Fraction of Inspired Oxygen 03/12/25 04:56 03/12/25 05:00 03/12/25 05:01 Temperature Pulse Rate 46 L Respiratory Rate 14 Blood Pressure 87/54 L 90/56 L Pulse Oximetry 94 95 94 Oxygen Delivery Fraction of Inspired Oxygen 03/12/25 05:06 03/12/25 05:10 03/12/25 05:11 Temperature Pulse Rate 60 58 L 57 L Respiratory Rate 20 17 16 Blood Pressure 86/54 L 86/51 L 86/51 L Pulse Oximetry 94 92 94 Oxygen Delivery Fraction of Inspired Oxygen 03/12/25 05:16 03/12/25 05:22 03/12/25 05:26 Temperature Pulse Rate 56 L 57 L Respiratory Rate 17 20 22 H Blood Pressure 78/52 L 87/46 L 84/73 L Pulse Oximetry 93 93 92 Oxygen Delivery Fraction of Inspired Oxygen 03/12/25 05:32 03/12/25 05:36 03/12/25 05:41 Temperature Pulse Rate 58 L 61 58 L Respiratory Rate 19 18 17 Blood Pressure 83/48 L 77/51 L 82/50 L Pulse Oximetry 93 92 92 Oxygen Delivery Fraction of Inspired Oxygen 03/12/25 05:46 03/12/25 06:17 03/12/25 06:20 Temperature Pulse Rate 64 61 59 L Respiratory Rate 16 16 19 Blood Pressure 82/54 L 96/56 L 92/59 L Pulse Oximetry 93 93 94 Oxygen Delivery Fraction of Inspired Oxygen 03/12/25 06:26 03/12/25 06:28 03/12/25 06:31 Temperature Pulse Rate 57 L 61 54 L Respiratory Rate 19 23 H Blood Pressure 88/54 L 66/51 L 80/50 L Pulse Oximetry 93 92 Oxygen Delivery Fraction of Inspired Oxygen 03/12/25 06:31 03/12/25 06:35 03/12/25 06:36 Temperature Pulse Rate 61 56 L Respiratory Rate 20 19 Blood Pressure 80/51 L 91/53 L Pulse Oximetry 90 91 93 Oxygen Delivery Room Air Fraction of Inspired Oxygen 03/12/25 06:41 03/12/25 06:46 03/12/25 06:46 Temperature Pulse Rate 56 L 58 L 58 L Respiratory Rate 17 18 Blood Pressure 95/58 L 84/65 L 84/65 L Pulse Oximetry 96 93 Oxygen Delivery Fraction of Inspired Oxygen 03/12/25 06:50 03/12/25 07:15 03/12/25 07:21 Temperature Pulse Rate 58 L 74 70 Respiratory Rate 17 18 21 H Blood Pressure 100/58 L 105/58 L 93/54 L Pulse Oximetry 94 93 93 Oxygen Delivery Fraction of Inspired Oxygen 03/12/25 07:26 03/12/25 07:26 03/12/25 07:26 Temperature Pulse Rate 55 L Respiratory Rate 22 H 22 H Blood Pressure 122/59 L Pulse Oximetry 95 95 Oxygen Delivery Room Air Fraction of Inspired Oxygen 21 03/12/25 07:31 03/12/25 07:32 03/12/25 07:36 Temperature 97.6 F Pulse Rate 67 68 60 Respiratory Rate 18 22 H 15 Blood Pressure 126/56 L 106/68 Pulse Oximetry 98 93 Oxygen Delivery Fraction of Inspired Oxygen 03/12/25 07:45 03/12/25 07:48 03/12/25 07:51 Temperature Pulse Rate 60 55 L Respiratory Rate 15 12 Blood Pressure 98/59 L 96/52 L Pulse Oximetry 95 93 93 Oxygen Delivery Room Air Fraction of Inspired Oxygen 21 03/12/25 08:01 03/12/25 08:11 03/12/25 08:21 Temperature Pulse Rate 61 64 53 L Respiratory Rate 13 15 12 Blood Pressure 116/56 L 109/72 106/58 L Pulse Oximetry 91 95 93 Oxygen Delivery Fraction of Inspired Oxygen 03/12/25 08:31 03/12/25 08:41 03/12/25 08:51 Temperature Pulse Rate 55 L 53 L 53 L Respiratory Rate 13 11 L 12 Blood Pressure 105/58 L 103/66 104/66 Pulse Oximetry 95 91 92 Oxygen Delivery Fraction of Inspired Oxygen 03/12/25 09:01 03/12/25 09:11 03/12/25 09:21 Temperature Pulse Rate 79 50 L 54 L Respiratory Rate 12 13 12 Blood Pressure 118/85 132/70 113/66 Pulse Oximetry 90 90 92 Oxygen Delivery Fraction of Inspired Oxygen 03/12/25 09:31 03/12/25 09:41 03/12/25 09:51 Temperature Pulse Rate 54 L 57 L 65 Respiratory Rate 13 13 12 Blood Pressure 122/77 127/70 112/66 Pulse Oximetry 98 95 93 Oxygen Delivery Fraction of Inspired Oxygen 03/12/25 10:01 03/12/25 10:30 Temperature Pulse Rate 56 L 73 Respiratory Rate 13 Blood Pressure 114/65 127/70 Pulse Oximetry 95 Oxygen Delivery Fraction of Inspired Oxygen Exam Narrative: General: Pleasant gentleman in no acute distress HEENT:? Pupils equal and reactive, sclera is clear, dry oral mucosa Neck:? Supple, right IJ in place Respiratory:? Diffuse expiratory wheezing bilaterally, coarse breath sounds in bases, rales on the right side Cardiac:? S1-S2 normal, bradycardic Abdomen:? Soft, distended, hypoactive and distant bowel sounds, nontender, positive fluid thrill Extremities:? Bilateral lower extremity edema up to the thighs, faint palpable pedal pulses, Neuro:? Patient is awake, alert, oriented, nonfocal, answers to questions appropriately and follows simple commands Skin:? Right garrett wound from a ruptured blister noted Psych:? Normal mentation and affect Results Labs 03/12/25 04:41 03/12/25 06:06 Labs: Short CBC 03/12/25 Range/Units 04:41 WBC 2.8 L (4.5-10.0) K/mm3 Hgb 7.8 L D (14.0-18.0) g/dL Hct 24.8 L (42.0-52.0) % Plt Count 115 L (150-375) k/mm3 BMP 03/12/25 06:06 Sodium 126 L Potassium 5.1 H Chloride 102 Carbon Dioxide 17 L BUN 21 H D Creatinine 1.45 H Glucose 129 H Calcium 7.0 L Liver Function 03/12/25 Range/Units 06:06 Total Bilirubin 0.6 (0.2-1.3) mg/dL AST 41 (17-59) U/L ALT 49 (6-50) U/L Alkaline Phosphatase 166 H (38-126) U/L Albumin 2.4 L (3.5-5.1) g/dL Urine 03/12/25 Range/Units 05:08 Urine Color Dark yellow (Yellow) Urine Appearance Clear (Clear) Urine pH 5.0 (5.0-9.0) Ur Specific [place] 1.020 (1.001-1.035) Urine Protein Negative (Negative) mg/dL Urine Glucose (UA) Negative (Negative) mg/dL Hospitalist MIPS Advance Care Plan I have confirmed that the patient's Advanced Care Plan is present, code status is documented, or surrogate decision maker is listed in patient medical record.: Yes Medication Reconciliation I have utilized all available resources to obtain, update and review the patients current medications (includes all prescriptions, OTC, herbals, cannabis, and nutritional supplements).: Yes
[2025-03-12 11:04] LABS: Basophils Percent Auto 0.5 % (0.2-1.2); Eosinophils Percent Auto 1.1 % (0-4.4); Hematocrit 25.6 % (42.0-52.0); Hemoglobin 8.1 g/dL (14.0-18.0); Immature Granulocyte Absolute 0.01 K/mm3 (0.00-0.031); Immature Granulocyte Percent A 0.5 % (0-0.5); Immature Platelet Fraction Pct 2.7 % (0.9-11.2); Lymphocytes Absolute Auto 0.36 K/mm3 (0.9-3.2); Lymphocytes Percent Auto 19.1 % (18.3-44.2); Mean Corpuscular HGB Conc 31.6 g/dl (32-36); Mean Corpuscular Hemoglobin 31.9 pg (26-34); Mean Corpuscular Volume 100.8 fl (80-100); Mean Platelet Volume 10.7 fl (7.4-10.4); Monocytes Absolute Auto 0.1 K/mm3 (0.1-0.6); Monocytes Percent Auto 6.4 % (2.6-8.5); Neutrophils Absolute Auto 1.4 K/mm3 (1.3-6.7); Neutrophils Percent Auto 72.4 % (45.5-73.1); Platelet Count Result 96 k/mm3 (150-375); Red Blood Count 2.54 M/mm3 (4.6-6.20); Red Cell Distribution Width 21.6 % (11.5-14.5)
[2025-03-12 11:13] LABS: Alanine Aminotransferase 50 U/L (6-50); Albumin Level 2.5 g/dL (3.5-5.1); Alkaline Phosphatase 161 U/L (38-126); Anion Gap 6 mmol/L (4-12); Aspartate Amino Transferase 44 U/L (17-59); Bilirubin,Total 0.7 mg/dL (0.2-1.3); Blood Urea Nitrogen 21 mg/dL (9-20); Calcium 7.3 mg/dL (8.4-10.2); Carbon Dioxide 21 mmol/L (22-30); Chloride 100 mmol/L (98-107); Estimated CRCL calculation 62 ml/min; Estimated Glomerular Filt Rate 54; Glucose 144 mg/dL (65-110); Magnesium 2.2 mg/dL (1.6-2.3); Phosphorus 4.1 mg/dL (2.5-4.5); Potassium 5.4 mmol/L (3.4-5.0); Sodium 127 mmol/L (137-145)
[2025-03-12 11:14] LABS: Ammonia 28 umol/L (9-30); Lactic Acid Reflex 1.4 mmol/L (0.7-2.0)
[2025-03-12] MEDS: metroNIDAZOLE 500 MG/ISO 100ML 500 MG/100 ML BAG 100 MG IVPB ×3 (11:37→21:46)
--- NOTE | 2025-03-12 11:47 | ADMGEN ---
This patient, Julius Campos Jr., was admitted to Intensive Care Unit-7. Patient/family oriented to hospital policies and general routines including ID bracelet, bed and alarms, visiting hours, pain management, procedures, bathroom and other care routines, personal items, smoking policy, room service/diet, and visiting hours. Information on how to activate the Rapid Response Team has been discussed. Patient/Family are encouraged to report perceived risks to care and to ask questions if they do not understand what they are told or what they should do.
[2025-03-12 11:49] LABS: Hemoglobin A1C 5.6 % (<5.7)
[2025-03-12 12:00] LABS: White Blood Count 1.9 K/mm3 (4.5-10.0)
[2025-03-12 12:00] LABS: Acetaminophen < 10 ug/mL (10-30); Ethanol < 10 mg/dL (<10); Salicylate < 1.0 mg/dL (2-20)
[2025-03-12 12:08] LABS: Barbiturate Screen Urine Negative (Negative); Benzodiazepines Screen Urine Negative (Negative)
[2025-03-12 12:10] LABS: Amphetamine Screen Urine Negative (Negative); Cannabinoid Screen Urine Positive (Negative); Cocaine Screen Urine Negative (Negative); Methadone Screen Urine Negative (Negative); Opiate Screen Urine Negative (Negative)
[2025-03-12 12:17] LABS: Phencyclidine Screen Urine Negative (Negative)
[2025-03-12] MEDS: methylPREDNISolone SOD SUCC 125 MG VIAL 40 MG IV PUSH ×2 (12:27→17:32)
[2025-03-12] MEDS: ALBUMIN HUMAN 25% 25 GM/100 ML 100 ML IVPB ×2 (12:30→17:32)
[2025-03-12] MEDS: SODIUM ZIRCONIUM CYCLOSILICATE 10 GM POWD.PACK PO (12:31)
[2025-03-12] MEDS: SODIUM BICARBONATE 8.4% 50 MEQ/50 ML SYRINGE IV PUSH (12:31)
[2025-03-12] MEDS: CENTRAL LINE FLUSH 10 ML IV PUSH (12:31)
[2025-03-12] MEDS: INSULIN HUMAN REGULAR (*BKC) 100 UNITS/ML 10 UNITS IV PUSH (12:34)
[2025-03-12] MEDS: DEXTROSE 50% 25 GM/50 ML SYRINGE IV PUSH (12:34)
[2025-03-12 12:37] LABS: Glucose Point of Care 150 mg/dl (65-105)
[2025-03-12 13:02] LABS: MRSA (PCR) NOT DETECTED (NOT DETECTE)
[2025-03-12 13:46] LABS: Alveolar/Arterial O2 Gradient 30.8 mmHg; Base Excess ABG -3.1 mEq/l (+/-2.0); Fractional Inspired Oxygen 21 %; HCO3 ABG 21.7 mEq/l (22.0-26.0); Oxygen Content ABG 12.1 %vol (16.0-22.0); Oxygen Saturation ABG 94.8 % (95.0-100.0); Oxyhemoglobin 91.9 % THb (90.0-100.0); PCO2 ABG 37.3 mmHg (35.0-45.0); PO2 ABG 74.3 mmHg (80.0-100.0); PO2 FiO2 Ratio Arterial Blood 3.54 %; Total Hemoglobin 9.3 g/dL (12.0-18.0); pH ABG 7.382 (7.350-7.450)
[2025-03-12 13:48] LABS: Modified Allen's Test Pass; Site Drawn LEFT RADIAL
--- NOTE | 2025-03-12 13:56 | P.HP_ITS ---
H&P: HPI History of Present Illness Date/Time: 03/12/25 13:56 Chief Complaint: Abd and leg swelling Narrative: 70 year old male patient has a history of cirrhosis, type 2 diabetes, tobacco use disorder, gout, essential hypertension, COPD, bipolar disorder presented the ED on 03/12/2025 with complains of generalized weakness, leg and abd swelling. Patient was somnolent at bedside but the brief time he was awake he noted that he was brought to the ER on account worsening weakness, abd and leg swelling. Denies any abd pain or chest pain. No focal weakness and no diarrhea. ER eval vital signs T 97.8, IN 56, RR 16, saturating 100% on room air, BP 81/50. Labs notable for WBC 1.9, Hb 8.1, plts 96, Na 129, Cr 1.25 baseline normal, BG 153, MRSA negative abg 7.382/37.3/74.3/21.7, ammonia 63, repeat 28 CT AP and chest showed lingular airspace disease compatible with pneumonia and new nodular densities RUL. Lung nodule and Liver cirrhosis. patient was started on pressors and abx adn admitted to ICU. Patient noted to have been managed for Pneumonia at [facility] and discharged 3 days ago. 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 Dietary counseling and surveillance (08/08/16) Chronic obstructive pulmonary disease, unspecified Bipolar disorder, unspecified Surgical History Surgical History History of shoulder surgery biceps tendon repair History of cervical spinal surgery History of carpal tunnel release History of heart bypass surgery 5 way Hx of CABG Family History Family History Mother Family history of chronic obstructive pulmonary disease Patient's mother is Father Family history of chronic obstructive pulmonary disease Patient's father is Other Hypertension Social History Social History Smoking packs per day: 0.5 Smoking cigarettes per day: 10.0 Smoking status: Current every day smoker Tobacco type: cigarettes Alcohol intake: never Substance use: never Substance use type: does not use Do You Feel Safe in your Home?: Yes Lack of Transportation: No Lack of Food: Never True Current Housing: I Have Housing Concerned About Future Housing: No Difficulty Paying Gas/Electric Bills: No Difficulty Paying for Meds: No Currently Unemployed: No Education: Decline to Answer Difficulty w/ Childcare or Family Care: No Living arrangements: alone Spiritual care concerns: No Meds Home Medications and Allergies Home Medications ?Medication ?Instructions ?Recorded ?Confirmed ?Type atorvastatin 10 mg tablet 10 mg PO DAILY 10/30/22 03/12/25 History clopidogrel 75 mg tablet 75 mg PO DAILY 10/30/22 03/12/25 History insulin lispro protamine-lispro 40 unit subcut BID 10/30/22 03/12/25 History 100 unit/mL (75-25) subcutaneous susp (Humalog Mix 75-25(U-100)Insuln) albuterol sulfate 90 mcg/actuation 1 puff inhalation Q4-6H PRN 12/16/23 03/12/25 History aerosol inhaler Shortness Of Breath Or Wheezing carvedilol 6.25 mg tablet 3.125 mg PO BID 12/16/23 03/12/25 History nitroglycerin 0.4 mg sublingual 0.4 mg sublingual PRN PRN Chest 12/16/23 03/12/25 History tablet Pain sacubitril 24 mg-valsartan 26 mg 1 tablet PO BID 12/16/23 03/12/25 History tablet (Entresto) allopurinol 300 mg tablet 300 mg PO DAILY 03/12/25 03/12/25 History furosemide 20 mg tablet 20 mg PO Q12H 03/12/25 03/12/25 History olanzapine 10 mg tablet 10 mg PO HS 03/12/25 03/12/25 History pantoprazole 40 mg tablet,delayed 40 mg PO Q12H 03/12/25 03/12/25 History release Allergies Allergy/AdvReac Type Severity Reaction Status Date / Time Penicillins Allergy Unknown Verified 03/12/25 12:03 Vital Signs Vital Signs - 24 hr 03/12/25 04:22 03/12/25 04:29 03/12/25 04:29 Temperature 97.8 F Pulse Rate 56 L 55 L Respiratory Rate 16 Blood Pressure Pulse Oximetry 100 98 Oxygen Delivery Room Air Room Air Fraction of Inspired Oxygen 03/12/25 04:45 03/12/25 04:46 03/12/25 04:49 Temperature Pulse Rate 56 L 48 L 57 L Respiratory Rate 18 17 20 Blood Pressure 81/50 L 81/50 L Pulse Oximetry 92 92 94 Oxygen Delivery Fraction of Inspired Oxygen 03/12/25 04:50 03/12/25 04:52 03/12/25 04:56 Temperature Pulse Rate 60 59 L 59 L Respiratory Rate 18 17 12 Blood Pressure 83/54 L 87/50 L 87/54 L Pulse Oximetry 93 95 94 Oxygen Delivery Fraction of Inspired Oxygen 03/12/25 04:56 03/12/25 05:00 03/12/25 05:01 Temperature Pulse Rate 46 L Respiratory Rate 14 Blood Pressure 87/54 L 90/56 L Pulse Oximetry 94 95 94 Oxygen Delivery Fraction of Inspired Oxygen 03/12/25 05:06 03/12/25 05:10 03/12/25 05:11 Temperature Pulse Rate 60 58 L 57 L Respiratory Rate 20 17 16 Blood Pressure 86/54 L 86/51 L 86/51 L Pulse Oximetry 94 92 94 Oxygen Delivery Fraction of Inspired Oxygen 03/12/25 05:16 03/12/25 05:22 03/12/25 05:26 Temperature Pulse Rate 56 L 57 L Respiratory Rate 17 20 22 H Blood Pressure 78/52 L 87/46 L 84/73 L Pulse Oximetry 93 93 92 Oxygen Delivery Fraction of Inspired Oxygen 03/12/25 05:32 03/12/25 05:36 03/12/25 05:41 Temperature Pulse Rate 58 L 61 58 L Respiratory Rate 19 18 17 Blood Pressure 83/48 L 77/51 L 82/50 L Pulse Oximetry 93 92 92 Oxygen Delivery Fraction of Inspired Oxygen 03/12/25 05:46 03/12/25 06:17 03/12/25 06:20 Temperature Pulse Rate 64 61 59 L Respiratory Rate 16 16 19 Blood Pressure 82/54 L 96/56 L 92/59 L Pulse Oximetry 93 93 94 Oxygen Delivery Fraction of Inspired Oxygen 03/12/25 06:26 03/12/25 06:28 03/12/25 06:31 Temperature Pulse Rate 57 L 61 54 L Respiratory Rate 19 23 H Blood Pressure 88/54 L 66/51 L 80/50 L Pulse Oximetry 93 92 Oxygen Delivery Fraction of Inspired Oxygen 03/12/25 06:31 03/12/25 06:35 03/12/25 06:36 Temperature Pulse Rate 61 56 L Respiratory Rate 20 19 Blood Pressure 80/51 L 91/53 L Pulse Oximetry 90 91 93 Oxygen Delivery Room Air Fraction of Inspired Oxygen 03/12/25 06:41 03/12/25 06:46 03/12/25 06:46 Temperature Pulse Rate 56 L 58 L 58 L Respiratory Rate 17 18 Blood Pressure 95/58 L 84/65 L 84/65 L Pulse Oximetry 96 93 Oxygen Delivery Fraction of Inspired Oxygen 03/12/25 06:50 03/12/25 07:15 03/12/25 07:21 Temperature Pulse Rate 58 L 74 70 Respiratory Rate 17 18 21 H Blood Pressure 100/58 L 105/58 L 93/54 L Pulse Oximetry 94 93 93 Oxygen Delivery Fraction of Inspired Oxygen 03/12/25 07:26 03/12/25 07:26 03/12/25 07:26 Temperature Pulse Rate 55 L Respiratory Rate 22 H 22 H Blood Pressure 122/59 L Pulse Oximetry 95 95 Oxygen Delivery Room Air Fraction of Inspired Oxygen 03/12/25 07:31 03/12/25 07:32 03/12/25 07:36 Temperature 97.6 F Pulse Rate 67 68 60 Respiratory Rate 18 22 H 15 Blood Pressure 126/56 L 106/68 Pulse Oximetry 98 93 Oxygen Delivery Fraction of Inspired Oxygen 03/12/25 07:45 03/12/25 07:48 03/12/25 07:51 Temperature Pulse Rate 60 55 L Respiratory Rate 15 12 Blood Pressure 98/59 L 96/52 L Pulse Oximetry 95 93 93 Oxygen Delivery Room Air Fraction of Inspired Oxygen 21 03/12/25 08:01 03/12/25 08:11 03/12/25 08:21 Temperature Pulse Rate 61 64 53 L Respiratory Rate 13 15 12 Blood Pressure 116/56 L 109/72 106/58 L Pulse Oximetry 91 95 93 Oxygen Delivery Fraction of Inspired Oxygen 03/12/25 08:31 03/12/25 08:41 03/12/25 08:51 Temperature Pulse Rate 55 L 53 L 53 L Respiratory Rate 13 11 L 12 Blood Pressure 105/58 L 103/66 104/66 Pulse Oximetry 95 91 92 Oxygen Delivery Fraction of Inspired Oxygen 03/12/25 09:01 03/12/25 09:11 03/12/25 09:21 Temperature Pulse Rate 79 50 L 54 L Respiratory Rate 12 13 12 Blood Pressure 118/85 132/70 113/66 Pulse Oximetry 90 90 92 Oxygen Delivery Fraction of Inspired Oxygen 03/12/25 09:31 03/12/25 09:41 03/12/25 09:51 Temperature Pulse Rate 54 L 57 L 65 Respiratory Rate 13 13 12 Blood Pressure 122/77 127/70 112/66 Pulse Oximetry 98 95 93 Oxygen Delivery Fraction of Inspired Oxygen 03/12/25 10:01 03/12/25 10:30 03/12/25 10:45 Temperature 97.8 F Pulse Rate 56 L 73 73 Respiratory Rate 13 15 Blood Pressure 114/65 127/70 119/72 Pulse Oximetry 95 96 Oxygen Delivery Fraction of Inspired Oxygen 03/12/25 10:57 03/12/25 11:19 03/12/25 11:28 Temperature Pulse Rate 60 57 L 86 Respiratory Rate 20 18 Blood Pressure 119/72 Pulse Oximetry Oxygen Delivery Fraction of Inspired Oxygen 03/12/25 12:00 03/12/25 12:00 03/12/25 12:00 Temperature 97.8 F Pulse Rate 56 L 72 Respiratory Rate 15 Blood Pressure 99/58 L 99/58 L Pulse Oximetry 99 98 Oxygen Delivery Room Air Fraction of Inspired Oxygen 03/12/25 12:00 Temperature Pulse Rate 79 Respiratory Rate Blood Pressure Pulse Oximetry Oxygen Delivery Fraction of Inspired Oxygen Exam Narrative: General: Somnolent Eyes: EOMI, PERRLA ENNT External ears normal, Neck is supple, no masses, Respiratory systems: Clear to auscultation Cardiovascular S1, S2, normal rhythm, no murmur, rub, or gallop; no thrill or palpable murmurs on palpation. Gastrointestinal: soft, non-tender, and non-distended abdomen with no masses; BS present Skin: no rash, lesions, ulcerations, subcutaneous nodules or induration Musculoskeletal: lower extremities and abd wall edema Neurologic: Alert and oriented x3, non focal H&P: Results Labs Labs: Short CBC 03/12/25 03/12/25 Range/Units 04:41 10:49 WBC 2.8 L 1.9 L* (4.5-10.0) K/mm3 Hgb 7.8 L D 8.1 L (14.0-18.0) g/dL Hct 24.8 L 25.6 L (42.0-52.0) % Plt Count 115 L 96 L (150-375) k/mm3 BMP 03/12/25 03/12/25 06:06 10:49 Sodium 126 L 127 L Potassium 5.1 H 5.4 H Chloride 102 100 Carbon Dioxide 17 L 21 L BUN 21 H D 21 H Creatinine 1.45 H 1.30 Glucose 129 H 144 H Calcium 7.0 L 7.3 L Liver Function 03/12/25 03/12/25 Range/Units 06:06 10:49 Total Bilirubin 0.6 0.7 (0.2-1.3) mg/dL AST 41 44 (17-59) U/L ALT 49 50 (6-50) U/L Alkaline Phosphatase 166 H 161 H (38-126) U/L Albumin 2.4 L 2.5 L (3.5-5.1) g/dL Urine 03/12/25 Range/Units 05:08 Urine Color Dark yellow (Yellow) Urine Appearance Clear (Clear) Urine pH 5.0 (5.0-9.0) Ur Specific [place] 1.020 (1.001-1.035) Urine Protein Negative (Negative) mg/dL Urine Glucose (UA) Negative (Negative) mg/dL Assessment and Plan Assessment and plan (1) Acute kidney injury: Code(s): N17.9 - Acute kidney failure, unspecified Status: Acute (2) Septic shock: Code(s): A41.9 - Sepsis, unspecified organism; R65.21 - Severe sepsis with septic shock Status: Acute (3) Cirrhosis: Code(s): K74.60 - Unspecified cirrhosis of liver Status: Acute (4) Ascites: Code(s): R18.8 - Other ascites Status: Acute Plan Septic shock From Pneumonia CT chest reviewed F/u Blood and sputum culture COntineu 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 MRSA negative Continue IVF and Pressors Pneumonia continue above care Liver cirrhosis with fluid overload: moderate ascites and abdominal wall and leg edema Hyperammonemia, 63 on admission paracentesis ordered along with fluid studies Diuretics when stable Start lactulose ALYSSA from septic shock Cr 1.25, baseline normal continue above care Pancytopenia Likely from Liver cirrhosis WBC 1.9, Hb 8.1, plts 96 B12/folate and iron panel ordered monitor DM2 SSI with accucheks adjust with clinical course Tobacco abuse patient noted he smokes 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
[2025-03-12 14:15] LABS: Anion Gap 6 mmol/L (4-12); Blood Urea Nitrogen 22 mg/dL (9-20); Calcium 7.5 mg/dL (8.4-10.2); Carbon Dioxide 22 mmol/L (22-30); Chloride 101 mmol/L (98-107); Estimated CRCL calculation 69 ml/min; Estimated Glomerular Filt Rate 57; Glucose 153 mg/dL (65-110); Sodium 129 mmol/L (137-145)
--- NOTE | 2025-03-12 14:43 | WPDGICN ---
Assessment and Plan Assessment and plan (1) Septic shock: Code(s): A41.9 - Sepsis, unspecified organism; R65.21 - Severe sepsis with septic shock Status: Acute Assessment and Plan: recently discharged 3 days ago from [facility] where he was admitted for pneumonia continue with levophed to keep MAP >65, on abx also noted abdominal distention with ascites, will order parecentesis and assess if SBP also iv albumin for intravascular volume expansion pending Blood cultures have been obtained (2) Pneumonia: Code(s): J18.9 - Pneumonia, unspecified organism Status: Acute Assessment and Plan: Continue antibiotics as above 03/12: CT scan of chest abdomen pelvis IMPRESSION: 1. Lingular airspace disease, compatible with pneumonia. New nodular densities right upper lobe may also be infectious/inflammatory, although metastatic disease not excluded. 2: Stable 12 mm pleural-based right lower lobe nodule, likely benign. 3: Cirrhosis of the liver with moderate ascites. (3) Ascites: Code(s): R18.8 - Other ascites Status: Acute Assessment and Plan: MELD score is 11 hold diuretics for now (4) Diabetes: Code(s): E11.9 - Type 2 diabetes mellitus without complications Status: Acute (5) Essential (primary) hypertension: Code(s): I10 - Essential (primary) hypertension Status: Acute Assessment and Plan: BP on hold for now (6) Acute kidney injury: Code(s): N17.9 - Acute kidney failure, unspecified Status: Acute Assessment and Plan: mild naty but improving, probably from sepsis,hypotension, etc patient has been adequately fluid-resuscitated, iv albumin and keep MAP >65 CT scan of the abdomen and pelvis did not show any hydronephrosis continue to monitor urine output (7) Cirrhosis: Code(s): K74.60 - Unspecified cirrhosis of liver Status: Acute Assessment and Plan: seen construction rep at [facility] GI Consult Note Consult date/time: 03/12/25 14:43 Reason for consult: cirrhosis, sepsis HPI: Julius Ortiz Andres Feliz is a 70 year old male with history of cirrhosis- 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 He was recently discharged from [facility] 3 days ago where he was admitted for pneumonia and he did not want to go back there. Initial evaluation was found to be hypotensive with systolic in the 80s, bradycardia in the 50s, adequate O2 sats on room. Patient received 3 L IV fluid bolus, patient remained hypotensive, central line was inserted in the right IJ and patient was started on Levophed. Patient started on Zosyn and vancomycin. WBC count 2.8, hemoglobin 7.8, platelets 115. INR 1.1, sodium 126, potassium 5.1, CO2 17, BUN 21, creatinine 1.45, lactic 2.9, repeat lactic 2.2, calcium 7.0, AST ALT and bilirubin were within normal limits. Ammonia level was 63. Albumin of 2.4. UA was not reflective of UTI. Chest x-ray shows cardiomegaly with interstitial edema. CT scan of the abdomen and pelvis showed lingular airspace disease compatible with pneumonia. New nodular densities right upper lobe may also be infectious/inflammatory, although metastatic disease not excluded. Stable 12 mm pleural based right lower lobe nodule likely benign. Cirrhosis of the liver with moderate ascites. Patient is now in the ICU for further management. He did have half a pint of vodka last night, he stated he wanted to just sleep well. He otherwise states he has never been a drinker. He had EGD/colonoscopy 12/2023, no varices, had colon polyps. Review of Systems Constitutional: Constitutional: Reports weakness Eyes: Eyes: Denies blurry vision ENT: Reports Normal hearing present Cardiovascular: Cardiovascular: Denies chest pain Respiratory: Respiratory: Reports chest congestion Gastrointestinal: Gastrointestinal: Denies melena Genitourinary: Genitourinary: Denies hematuria Musculoskeletal: Musculoskeletal: Denies stiffness Integumentary/Breasts: Skin/Breast: Denies rash Neurologic: Denies Abnormal speech present Psychiatric: Psychiatric: Denies behavioral changes COUNTS INCLUDE 234 BEDS AT THE [facility] Past Medical History Medical History (Updated 03/12/25 @ 11:30 by Jacqui Roberto MD) Cirrhosis Colon polyp Osteoporosis Type 2 diabetes mellitus with hyperglycemia Tobacco use disorder RUQ abdominal pain Overweight (03/31/16) 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 IDDM (insulin dependent diabetes mellitus) Gout, unspecified Gallstones Essential (primary) hypertension Encounter for screening colonoscopy Encounter for current [facility] use of antiplatelet drug Dietary counseling and surveillance (08/08/16) Chronic obstructive pulmonary disease, unspecified Bipolar disorder, unspecified Surgical History Surgical History History of shoulder surgery biceps tendon repair History of cervical spinal surgery History of carpal tunnel release History of heart bypass surgery 5 way Hx of CABG Family History Family History Mother Family history of chronic obstructive pulmonary disease Patient's mother is Father Family history of chronic obstructive pulmonary disease Patient's father is Other Hypertension Social History Social History Smoking packs per day: 0.5 Smoking cigarettes per day: 10.0 Smoking status: Current every day smoker Tobacco type: cigarettes Alcohol intake: never Substance use: never Substance use type: does not use Do You Feel Safe in your Home?: Yes Lack of Transportation: No Lack of Food: Never True Current Housing: I Have Housing Concerned About Future Housing: No Difficulty Paying Gas/Electric Bills: No Difficulty Paying for Meds: No Currently Unemployed: No Education: Decline to Answer Difficulty w/ Childcare or Family Care: No Living arrangements: alone Spiritual care concerns: No Meds Home Medications and Allergies Home Medications ?Medication ?Instructions ?Recorded ?Confirmed ?Type atorvastatin 10 mg tablet 10 mg PO DAILY 10/30/22 03/12/25 History clopidogrel 75 mg tablet 75 mg PO DAILY 10/30/22 03/12/25 History insulin lispro protamine-lispro 40 unit subcut BID 10/30/22 03/12/25 History 100 unit/mL (75-25) subcutaneous susp (Humalog Mix 75-25(U-100)Insuln) albuterol sulfate 90 mcg/actuation 1 puff inhalation Q4-6H PRN 12/16/23 03/12/25 History aerosol inhaler Shortness Of Breath Or Wheezing carvedilol 6.25 mg tablet 3.125 mg PO BID 12/16/23 03/12/25 History nitroglycerin 0.4 mg sublingual 0.4 mg sublingual PRN PRN Chest 12/16/23 03/12/25 History tablet Pain sacubitril 24 mg-valsartan 26 mg 1 tablet PO BID 12/16/23 03/12/25 History tablet (Entresto) allopurinol 300 mg tablet 300 mg PO DAILY 03/12/25 03/12/25 History furosemide 20 mg tablet 20 mg PO Q12H 03/12/25 03/12/25 History olanzapine 10 mg tablet 10 mg PO HS 03/12/25 03/12/25 History pantoprazole 40 mg tablet,delayed 40 mg PO Q12H 03/12/25 03/12/25 History release Allergies Allergy/AdvReac Type Severity Reaction Status Date / Time Penicillins Allergy Unknown Verified 03/12/25 12:03 Vital Signs Vital Signs - 24 hr 03/12/25 04:22 03/12/25 04:29 03/12/25 04:29 Temperature 97.8 F Pulse Rate 56 L 55 L Respiratory Rate 16 Blood Pressure Pulse Oximetry 100 98 Oxygen Delivery Room Air Room Air Fraction of Inspired Oxygen 03/12/25 04:45 03/12/25 04:46 03/12/25 04:49 Temperature Pulse Rate 56 L 48 L 57 L Respiratory Rate 18 17 20 Blood Pressure 81/50 L 81/50 L Pulse Oximetry 92 92 94 Oxygen Delivery Fraction of Inspired Oxygen 03/12/25 04:50 03/12/25 04:52 03/12/25 04:56 Temperature Pulse Rate 60 59 L 59 L Respiratory Rate 18 17 12 Blood Pressure 83/54 L 87/50 L 87/54 L Pulse Oximetry 93 95 94 Oxygen Delivery Fraction of Inspired Oxygen 03/12/25 04:56 03/12/25 05:00 03/12/25 05:01 Temperature Pulse Rate 46 L Respiratory Rate 14 Blood Pressure 87/54 L 90/56 L Pulse Oximetry 94 95 94 Oxygen Delivery Fraction of Inspired Oxygen 03/12/25 05:06 03/12/25 05:10 03/12/25 05:11 Temperature Pulse Rate 60 58 L 57 L Respiratory Rate 20 17 16 Blood Pressure 86/54 L 86/51 L 86/51 L Pulse Oximetry 94 92 94 Oxygen Delivery Fraction of Inspired Oxygen 03/12/25 05:16 03/12/25 05:22 03/12/25 05:26 Temperature Pulse Rate 56 L 57 L Respiratory Rate 17 20 22 H Blood Pressure 78/52 L 87/46 L 84/73 L Pulse Oximetry 93 93 92 Oxygen Delivery Fraction of Inspired Oxygen 03/12/25 05:32 03/12/25 05:36 03/12/25 05:41 Temperature Pulse Rate 58 L 61 58 L Respiratory Rate 19 18 17 Blood Pressure 83/48 L 77/51 L 82/50 L Pulse Oximetry 93 92 92 Oxygen Delivery Fraction of Inspired Oxygen 03/12/25 05:46 03/12/25 06:17 03/12/25 06:20 Temperature Pulse Rate 64 61 59 L Respiratory Rate 16 16 19 Blood Pressure 82/54 L 96/56 L 92/59 L Pulse Oximetry 93 93 94 Oxygen Delivery Fraction of Inspired Oxygen 03/12/25 06:26 03/12/25 06:28 03/12/25 06:31 Temperature Pulse Rate 57 L 61 54 L Respiratory Rate 19 23 H Blood Pressure 88/54 L 66/51 L 80/50 L Pulse Oximetry 93 92 Oxygen Delivery Fraction of Inspired Oxygen 03/12/25 06:31 03/12/25 06:35 03/12/25 06:36 Temperature Pulse Rate 61 56 L Respiratory Rate 20 19 Blood Pressure 80/51 L 91/53 L Pulse Oximetry 90 91 93 Oxygen Delivery Room Air Fraction of Inspired Oxygen 03/12/25 06:41 03/12/25 06:46 03/12/25 06:46 Temperature Pulse Rate 56 L 58 L 58 L Respiratory Rate 17 18 Blood Pressure 95/58 L 84/65 L 84/65 L Pulse Oximetry 96 93 Oxygen Delivery Fraction of Inspired Oxygen 03/12/25 06:50 03/12/25 07:15 03/12/25 07:21 Temperature Pulse Rate 58 L 74 70 Respiratory Rate 17 18 21 H Blood Pressure 100/58 L 105/58 L 93/54 L Pulse Oximetry 94 93 93 Oxygen Delivery Fraction of Inspired Oxygen 03/12/25 07:26 03/12/25 07:26 03/12/25 07:26 Temperature Pulse Rate 55 L Respiratory Rate 22 H 22 H Blood Pressure 122/59 L Pulse Oximetry 95 95 Oxygen Delivery Room Air Fraction of Inspired Oxygen 03/12/25 07:31 03/12/25 07:32 03/12/25 07:36 Temperature 97.6 F Pulse Rate 67 68 60 Respiratory Rate 18 22 H 15 Blood Pressure 126/56 L 106/68 Pulse Oximetry 98 93 Oxygen Delivery Fraction of Inspired Oxygen 03/12/25 07:45 03/12/25 07:48 03/12/25 07:51 Temperature Pulse Rate 60 55 L Respiratory Rate 15 12 Blood Pressure 98/59 L 96/52 L Pulse Oximetry 95 93 93 Oxygen Delivery Room Air Fraction of Inspired Oxygen 21 03/12/25 08:01 03/12/25 08:11 03/12/25 08:21 Temperature Pulse Rate 61 64 53 L Respiratory Rate 13 15 12 Blood Pressure 116/56 L 109/72 106/58 L Pulse Oximetry 91 95 93 Oxygen Delivery Fraction of Inspired Oxygen 03/12/25 08:31 03/12/25 08:41 03/12/25 08:51 Temperature Pulse Rate 55 L 53 L 53 L Respiratory Rate 13 11 L 12 Blood Pressure 105/58 L 103/66 104/66 Pulse Oximetry 95 91 92 Oxygen Delivery Fraction of Inspired Oxygen 03/12/25 09:01 03/12/25 09:11 03/12/25 09:21 Temperature Pulse Rate 79 50 L 54 L Respiratory Rate 12 13 12 Blood Pressure 118/85 132/70 113/66 Pulse Oximetry 90 90 92 Oxygen Delivery Fraction of Inspired Oxygen 03/12/25 09:31 03/12/25 09:41 03/12/25 09:51 Temperature Pulse Rate 54 L 57 L 65 Respiratory Rate 13 13 12 Blood Pressure 122/77 127/70 112/66 Pulse Oximetry 98 95 93 Oxygen Delivery Fraction of Inspired Oxygen 03/12/25 10:01 03/12/25 10:30 03/12/25 10:45 Temperature 97.8 F Pulse Rate 56 L 73 73 Respiratory Rate 13 15 Blood Pressure 114/65 127/70 119/72 Pulse Oximetry 95 96 Oxygen Delivery Fraction of Inspired Oxygen 03/12/25 10:57 03/12/25 11:19 03/12/25 11:28 Temperature Pulse Rate 60 57 L 86 Respiratory Rate 20 18 Blood Pressure 119/72 Pulse Oximetry Oxygen Delivery Fraction of Inspired Oxygen 03/12/25 12:00 03/12/25 12:00 03/12/25 12:00 Temperature 97.8 F Pulse Rate 56 L 72 Respiratory Rate 15 Blood Pressure 99/58 L 99/58 L Pulse Oximetry 99 98 Oxygen Delivery Room Air Fraction of Inspired Oxygen 03/12/25 12:00 03/12/25 14:00 03/12/25 14:00 Temperature 97.5 F L Pulse Rate 79 76 66 Respiratory Rate 12 Blood Pressure Pulse Oximetry 96 Oxygen Delivery Fraction of Inspired Oxygen 03/12/25 14:00 Temperature Pulse Rate 66 Respiratory Rate Blood Pressure 98/64 L Pulse Oximetry Oxygen Delivery Fraction of Inspired Oxygen Exam Narrative: General: Pleasant gentleman in no acute distress HEENT:? Pupils equal and reactive, sclera is clear, dry oral mucosa Neck:? Supple, right IJ in place Respiratory:? Diffuse expiratory wheezing bilaterally, coarse breath sounds in bases, rales on the right side Cardiac:? S1-S2 normal, bradycardic Abdomen:? Soft, distended, hypoactive and distant bowel sounds, nontender, positive fluid thrill Extremities:? Bilateral lower extremity edema up to the thighs, faint palpable pedal pulses, Neuro:? Patient is awake, alert, oriented, nonfocal, answers to questions appropriately and follows simple commands Skin:? Right garrett wound from a ruptured blister noted Psych:? Normal mentation and affect Results Labs 03/12/25 10:49 03/12/25 13:59 Labs: Short CBC 03/12/25 03/12/25 Range/Units 04:41 10:49 WBC 2.8 L 1.9 L* (4.5-10.0) K/mm3 Hgb 7.8 L D 8.1 L (14.0-18.0) g/dL Hct 24.8 L 25.6 L (42.0-52.0) % Plt Count 115 L 96 L (150-375) k/mm3 BMP 03/12/25 03/12/25 03/12/25 06:06 10:49 13:59 Sodium 126 L 127 L 129 L Potassium 5.1 H 5.4 H 5.0 Chloride 102 100 101 Carbon Dioxide 17 L 21 L 22 BUN 21 H D 21 H 22 H Creatinine 1.45 H 1.30 1.25 Glucose 129 H 144 H 153 H Calcium 7.0 L 7.3 L 7.5 L Liver Function 03/12/25 03/12/25 Range/Units 06:06 10:49 Total Bilirubin 0.6 0.7 (0.2-1.3) mg/dL AST 41 44 (17-59) U/L ALT 49 50 (6-50) U/L Alkaline Phosphatase 166 H 161 H (38-126) U/L Albumin 2.4 L 2.5 L (3.5-5.1) g/dL Urine 03/12/25 Range/Units 05:08 Urine Color Dark yellow (Yellow) Urine Appearance Clear (Clear) Urine pH 5.0 (5.0-9.0) Ur Specific [place] 1.020 (1.001-1.035) Urine Protein Negative (Negative) mg/dL Urine Glucose (UA) Negative (Negative) mg/dL
[2025-03-12] MEDS: HYDROcodone/acetaminophen (*CRX) 5-325 MG TABLET 1 TAB PO ×2 (17:32→22:54)
[2025-03-12] MEDS: INSULIN ASPART (*BKC) 100 UNITS/ML SUB-Q (17:32)
[2025-03-12 17:46] LABS: Glucose Point of Care 221 mg/dl (65-105)
[2025-03-12] MEDS: PANTOPRAZOLE SODIUM IV 40 MG VIAL IV PUSH (21:46)
[2025-03-13] VITALS (30 sets, daily range): BP systolic 100–148; BP diastolic 56–87; PULSE 75–100; RESP 14–22; TEMP 36.4–36.8; O2SAT 95–100
--- NOTE | 2025-03-13 | ECHO_ITS ---
Patient Info Name: Julius Campos Age: 70 years : 1955 Gender: Male Ht: 73 in Wt: 290 lbs BSA: 2.65 m2 HR: 91 bpm BP: 138 / 81 mmHg Heart Rhythm: Sinus Rhythm Technical Quality: Fair Exam Date: 03/13/2025 8:41 AM Exam Location: Echo Lab Patient Status: Inpatient Admit Date: 03/12/2025 Staff Ordering Physician: Jacqui Roberto MD Dehydrator Tender: Katty Woo RDCS Attending Provider: Murray Jaquez MD Referring Physician: Pardeep VICENTE; Exam Type: CA echo dop color flow w con Study Info Indications - Septic shock Complete two-dimensional, color flow and Doppler transthoracic echocardiogram is performed with contrast to opacify the left ventricle and to improve the deliniation of the left ventricle endocardial borders. Contrast/Agitated Saline Contrast/Ag. Saline: Definity Amount: 2.00 ml Administered By: Katty Woo RDCS Existing IV Access: Yes IV Access Condition: patent with no signs of infiltration Summary 1. The left ventricle is mildly dilated with the left ventricular end-diastolic diameter measuring 6.1 cm. There is mild eccentric left ventricular hypertrophy. The left ventricular systolic function is mildly reduced with the LVEF visually estimated to be 45-50%. Left Ventricle The left ventricle is mildly dilated with the left ventricular end-diastolic diameter measuring 6.1 cm. There is mild eccentric left ventricular hypertrophy. The left ventricular systolic function is mildly reduced with the LVEF visually estimated to be 45-50%. Right Ventricle The right ventricle is normal in size and systolic function. Left Atria The left atrium is moderately dilated. Right Atria The right atrium is dilated. Atrial Septum The atrial septum is not well visualized. Aortic Valve The aortic valve is trileaflet and opens well. There is trace aortic regurgitation. Pulmonic Valve The pulmonic valve is not well visualized. There is no color Doppler evidence of pulmonic valve regurgitation. Mitral Valve The mitral valve opens well. There is no mitral regurgitation. Tricuspid Valve The tricuspid valve is normal. There is no tricuspid regurgitation. Pericardium/Pleural Pericardium is normal in appearance with no evidence for significant pericardial effusion. Inferior Vena Cava Inferior vena cava is not well visualized. Aorta The aortic root at the level of the sinus of Valsalva measures 3.1 cm in diameter. Left Ventricular Outflow Tract Name Value Normal LVOT 2D LVOT Diameter 1.95 cm LVOT Doppler LVOT Peak Gradient 5 mmHg LVOT Mean Gradient 3 mmHg LVOT VTI 21.73 cm LVOT VTI/AV VTI Ratio 0.61 LVOT Stroke Volume 65.15 ml LVOT CO 5.98 l/min LVOT CI 2.25 L/min/m2 Pulmonic Valve Name Value Normal RVOT Doppler RVOT Peak Gradient 5 mmHg PV Doppler PV Peak Gradient 9 mmHg Mitral Valve Name Value Normal MV Doppler MV Peak Gradient 12 mmHg MV Mean Gradient 4 mmHg MV Decel [place] 995.16 cm/s2 MV PHT 0 s MV Area (PHT) 4.21 cm2 4.00-5.00 MV Area (Cont Eq VTI) 2.05 cm2 MV Diastolic Function MV E Peak Velocity 179.42 cm/s MV A Peak Velocity 3.31 cm/s MV E/A 54.26 MV Decel Time 0 s MV Annular TDI MV E/e' (Septal) 12.11 <=8.00 MV E/e' (Lateral) 9.33 <=8.00 MV E/e' (Average) 10.72 Aorta Name Value Normal Ascending Aorta Ao Root Diameter (MM) 3.73 cm Ao Root Diam Index (MM) 1.40 cm/m2 Aortic Valve Name Value Normal AV Doppler AV Peak Velocity 199.52 cm/s AV Peak Gradient 16 mmHg AV Mean Gradient 9 mmHg AV VTI 35.46 cm AV Area (Cont Eq VTI) 1.84 cm2 >=3.00 AV Area (Cont Eq Jhon) 1.74 cm2 AV Regurgitation 2D LVOT Area 3.00 cm2 AV Regurgitation Doppler AR Decel Time 1 s AR Decel [place] 343.72 cm/s2 AR PHT 0 s Ventricles Name Value Normal LV Dimensions 2D/MM IVS Diastolic Thickness (2D) 1.24 cm 0.60-1.00 LVID Diastole (2D) 6.57 cm 4.20-5.80 LVIW Diastolic Thickness (2D) 1.09 cm 0.60-1.00 LVID Systole (2D) 5.27 cm 2.50-4.00 LVOT Diameter 1.95 cm LV Mass (2D Cubed) 350.87 g 88.00-224.00 LV Mass Index (2D Cubed) 0.01 g/cm2 0.00-0.01 Relative Wall Thickness (2D) 0.33 LV Fractional Shortening/Ejection Fraction 2D/MM LV Fractional Shortening (2D) 20 % 25-43 LV EF (2D Teichfarnazz) 40 % 52-72 LV Diastolic Volume (4C MOD) 215.25 ml LV EF (4C MOD) 51 % LV Diastolic Volume (2C MOD) 142.99 ml LV EF (2C MOD) 45 % LV Diastolic Volume (BP MOD) 187.17 ml 62.00-150.00 LV Diastolic Volume Index (BP MOD) 0.07 l/m2 0.03-0.07 LV Systolic Volume (BP MOD) 93.02 ml 21.00-61.00 LV Systolic Volume Index (BP MOD) 0.04 l/m2 0.01-0.03 LV EF (BP MOD) 50 % 52-72 LV Diastolic Length (4C) 9.80 cm LV Systolic Length (4C) 8.16 cm LV Stroke Volume (4C MOD) 110.47 ml Atria Name Value Normal LA Dimensions LA Dimension (MM) 5.03 cm 3.00-4.10 LA Volume (4C A-L) 101.62 ml LA Volume (BP A-L) 100.96 ml RA Dimensions RA Area (4C) 22.40 cm2 <=18.00 Report Signatures
[2025-03-13] MEDS: CENTRAL LINE FLUSH 10 ML IV PUSH ×3 (00:01→15:43)
[2025-03-13] MEDS: ALBUMIN HUMAN 25% 25 GM/100 ML 100 ML IVPB ×2 (00:01→05:55)
[2025-03-13] MEDS: methylPREDNISolone SOD SUCC 125 MG VIAL 40 MG IV PUSH ×2 (00:02→05:55)
[2025-03-13 00:04] LABS: Glucose Point of Care 173 mg/dl (65-105)
[2025-03-13] MEDS: IPRATROPIUM 0.5 MG/ALBUTEROL SULFATE 2.5 MG AMPUL.NEB 3 ML INHALATION ×4 (02:02→20:28)
[2025-03-13 02:52] LABS: Iron 103 ug/dL (49-181)
[2025-03-13 03:02] LABS: Percent Iron Saturation 37 % (20-50)
[2025-03-13] MEDS: metroNIDAZOLE 500 MG/ISO 100ML 500 MG/100 ML BAG 100 MG IVPB ×3 (05:55→21:41)
[2025-03-13 05:58] LABS: Hematocrit 22.6 % (42.0-52.0); Hemoglobin 7.4 g/dL (14.0-18.0); Immature Granulocyte Absolute 0.02 K/mm3 (0.00-0.031); Immature Granulocyte Percent A 0.6 % (0-0.5); Lymphocytes Absolute Auto 0.25 K/mm3 (0.9-3.2); Lymphocytes Percent Auto 7.8 % (18.3-44.2); Mean Corpuscular HGB Conc 32.7 g/dl (32-36); Mean Corpuscular Volume 97.8 fl (80-100); Mean Platelet Volume 10.2 fl (7.4-10.4); Monocytes Absolute Auto 0.1 K/mm3 (0.1-0.6); Monocytes Percent Auto 2.5 % (2.6-8.5); Neutrophils Absolute Auto 2.9 K/mm3 (1.3-6.7); Neutrophils Percent Auto 89.1 % (45.5-73.1); Platelet Count Result 76 k/mm3 (150-375); Red Blood Count 2.31 M/mm3 (4.6-6.20); Red Cell Distribution Width 21.6 % (11.5-14.5); White Blood Count 3.2 K/mm3 (4.5-10.0)
[2025-03-13 06:03] LABS: Glucose Point of Care 181 mg/dl (65-105)
[2025-03-13 06:06] LABS: Ammonia 10 umol/L (9-30); Lactic Acid Reflex 2.3 mmol/L (0.7-2.0)
[2025-03-13 06:20] LABS: Alanine Aminotransferase 39 U/L (6-50); Albumin Level 2.9 g/dL (3.5-5.1); Alkaline Phosphatase 126 U/L (38-126); Anion Gap 7 mmol/L (4-12); Aspartate Amino Transferase 39 U/L (17-59); Blood Urea Nitrogen 24 mg/dL (9-20); Calcium 7.6 mg/dL (8.4-10.2); Carbon Dioxide 22 mmol/L (22-30); Chloride 102 mmol/L (98-107); Estimated CRCL calculation 81 ml/min; Estimated Glomerular Filt Rate > 60; Glucose 142 mg/dL (65-110); Magnesium 2.4 mg/dL (1.6-2.3); Phosphorus 3.7 mg/dL (2.5-4.5); Sodium 131 mmol/L (137-145)
[2025-03-13] MEDS: HYDROcodone/acetaminophen (*CRX) 5-325 MG TABLET 1 TAB PO ×2 (07:16→17:53)
[2025-03-13 07:28] LABS: Vitamin B12 > 1000.0 pg/mL (239-931)
--- NOTE | 2025-03-13 07:39 | ECG_ITS ---
Test Date: 2025-03-13 07:45:46 Measurements Intervals [place] Rate: 89 P: 35 OK: 230 QRS: -42 QRSD: 169 T: 132 QT: 404 QTc: 492 Interpretive Statements SINUS RHYTHM WITH FIRST DEGREE AV BLOCK LEFT AXIS DEVIATION LEFT BUNDLE BRANCH BLOCK ABNORMAL ECG Compared to ECG 03/12/2025 04:38:32 HEART RATE HAS INCREASED Electronically Signed On 03-13-2025 07:50:16 CDT by Jabari Villaseñor D.O.
[2025-03-13 07:54] LABS: Reflex Lactic Acid Yes or No Add Lactic
[2025-03-13] MEDS: NITROGLYCERIN SL 0.4 MG TABLET SUBLINGUAL ×2 (07:54→09:36)
[2025-03-13] MEDS: ASPIRIN 81 MG CHEWABLE TABLET 324 MG PO (07:54)
[2025-03-13] MEDS: PANTOPRAZOLE SODIUM IV 40 MG VIAL IV PUSH ×2 (07:59→20:15)
[2025-03-13] MEDS: cefTRIAXone 2 GM/NS 100 ML 2 GM/100 ML BAG IVPB (08:00)
--- NOTE | 2025-03-13 08:10 | P.PNINT_ITS ---
Progress Note: A&P Assessment and Plan (1) Chest pain: Code(s): R07.9 - Chest pain, unspecified <Itzel SamaniegoErin paz - Last Filed: 03/13/25 09:02> Status: Acute <Itzel SamaniegoErin paz - Last Filed: 03/13/25 09:02> Assessment and Plan: 03/13- Pt reports sternal chest pain that began this morning. He describes the pain as a sledgehammer hitting his chest intermittently. -Pt was given Nitro and ASA 324mg with complete resolution of his pain. -EKG obtained and reviewed by me demonstrates LBBB (not present in EKG from 2021), no ST-T wave abnormality. -Troponin ordered and was 0.014 -Echocardiogram is ordered <Itzel Torres Erin Gupta - Last Filed: 03/13/25 09:02> 03/13- Pt reports sternal chest pain that began this morning. He describes the pain as a sledgehammer hitting his chest intermittently. -Pt was given Nitro and ASA 324mg with complete resolution of his pain. -EKG obtained and reviewed by me demonstrates LBBB, no change from EKG on admission (not present in EKG from 2021), no ST-T wave abnormality. -Troponin 0.014 -Echocardiogram ordered to look for old motion abnormality -cardiology has been consulted for angina <Jacqui Roberto MD - Last Filed: 03/13/25 09:58> (2) Septic shock: Code(s): A41.9 - Sepsis, unspecified organism; R65.21 - Severe sepsis with septic shock <Itzel Torres Erin Gupta - Last Filed: 03/13/25 09:02> Status: Acute <Itzel Torres Erin Gupta - Last Filed: 03/13/25 09:02> Assessment and Plan: 03/12: Patient presented with generalized weakness, nausea, vomiting. -was recently discharged 3 days ago from [facility] where he was admitted for pneumonia -in the ED patient was found to be hypotensive with systolic blood pressures in the 70-80s -UA was unremarkable -received 3 L IV fluid bolus in the ER despite which his blood pressures were low, right IJ central line was inserted -patient started on Levophed will maintain MAP > 65 mm Hg at all times for adequate end organ perfusion -patient has significant amount of abdominal distention with ascites -patient started on ceftriaxone, Flagyl, vanc, (03/12) -etiology pneumonia, ?SBP, skin infection -will give albumin for intravascular volume expansion -03/12: Blood cultures have been obtained <Erin Teixeira - Last Filed: 03/13/25 09:02> 03/12: Patient presented with generalized weakness, nausea, vomiting. -was recently discharged 3 days ago from [facility] where he was admitted for pneumonia -in the ED patient was found to be hypotensive with systolic blood pressures in the 70-80s -UA was unremarkable -received 3 L IV fluid bolus in the ER despite which his blood pressures were low, right IJ central line was inserted -patient has significant amount of abdominal distention with ascites -patient started on ceftriaxone, Flagyl, vanc, (03/12) -etiology pneumonia, ?SBP, skin infection -will give albumin for intravascular volume expansion -03/12: Blood cultures have been obtained -OFF Levophed since 8:00 p.m. on 03/12/2025 <Jacqui Roberto MD - Last Filed: 03/13/25 09:58> (3) Pneumonia: Code(s): J18.9 - Pneumonia, unspecified organism <Erin Teixeira - Last Filed: 03/13/25 09:02> Status: Acute <Erin Teixeira - Last Filed: 03/13/25 09:02> Assessment and Plan: Continue antibiotics as above 03/12: CT scan of chest abdomen pelvis IMPRESSION: 1. Lingular airspace disease, compatible with pneumonia. New nodular densities right upper lobe may also be infectious/inflammatory, although metastatic disease not excluded. 2: Stable 12 mm pleural-based right lower lobe nodule, likely benign. 3: Cirrhosis of the liver with moderate ascites. 03/13: CXR IMPRESSION: Probable mild bibasilar pulmonary edema. Correlate clinically for pneumonia. Right IJ line. <Erin Teixeira - Last Filed: 03/13/25 09:02> (4) Ascites: Code(s): R18.8 - Other ascites <Erin Teixeira - Last Filed: 03/13/25 09:02> Status: Acute <Itzel Gupta Student - Last Filed: 03/13/25 09:02> Assessment and Plan: Will have Interventional Radiology perform a paracentesis -labs have been ordered -likely related to cirrhosis -MELD score is 11 -GI has been consulted 03/13: LFTs ordered and demonstrate AST of 39, ALT of 39, and Alk phos of 126 (all within normal limits). Paracentesis scheduled for today. <Itzel Gupta Student - Last Filed: 03/13/25 09:02> Will have Interventional Radiology perform a paracentesis -labs have been ordered -likely related to cirrhosis -MELD score is 11 -appreciate GI evaluation and recommendation 03/13: LFTs ordered and demonstrate AST of 39, ALT of 39, and Alk phos of 126 (all within normal limits). Paracentesis scheduled for today. <Jacqui Roberto MD - Last Filed: 03/13/25 09:58> (5) Diabetes: Code(s): E11.9 - Type 2 diabetes mellitus without complications <Itzel Gupta Student - Last Filed: 03/13/25 09:02> Status: Acute <Itzel Gupta Student - Last Filed: 03/13/25 09:02> Assessment and Plan: Patient history of diabetes, -Accu-Cheks and sliding scale insulin -check A1c 03/13- A1C pending <Erin Teixeira - Last Filed: 03/13/25 09:02> Patient history of diabetes, -Accu-Cheks and sliding scale insulin -HB A1c was 5.6 <Jacqui Roberto MD - Last Filed: 03/13/25 09:58> (6) Essential (primary) hypertension: Code(s): I10 - Essential (primary) hypertension <Itzel Gupta Student - Last Filed: 03/13/25 09:02> Status: Acute <Itzel Gupta Student - Last Filed: 03/13/25 09:02> Assessment and Plan: History of essential hypertension, will hold all antihypertensive as patient is on pressors -patient does take carvedilol, clopidogrel, Entresto at home <Itzel Gupta Student - Last Filed: 03/13/25 09:02> (7) Chronic obstructive pulmonary disease, unspecified: Code(s): J44.9 - Chronic obstructive pulmonary disease, unspecified <Itzel Gupta, Student - Last Filed: 03/13/25 09:02> Status: Acute <Itzel Gupta - Last Filed: 03/13/25 09:02> Assessment and Plan: Significant expiratory wheezing, could be related to cigarette smoking/COPD -Continue bronchodilators -added Solu-Medrol for possible COPD exacerbation 03/13: Wheezing resolved currently -will continue to monitor <Itzel Gupta - Last Filed: 03/13/25 09:02> (8) Acute kidney injury: Code(s): N17.9 - Acute kidney failure, unspecified <Itzel Gupta, Student - Last Filed: 03/13/25 09:02> Status: Acute <Itzel Gupta - Last Filed: 03/13/25 09:02> Assessment and Plan: 03/12: Acute kidney injury on admission likely related to hypotension, medications that he takes at home, carvedilol, Entresto, patient also history of hypertension diabetes which could be a contributing factor -patient has been adequately fluid-resuscitated -CT scan of the abdomen and pelvis did not show any hydronephrosis -continue to monitor urine output, electrolytes and renal 5 <Itzel Gupta - Last Filed: 03/13/25 09:02> 03/12: Acute kidney injury on admission likely related to hypotension, medications that he takes at home, carvedilol, Entresto, patient also history of hypertension diabetes which could be a contributing factor -patient has been adequately fluid-resuscitated -CT scan of the abdomen and pelvis did not show any hydronephrosis -urine output has been adequate, creatinine back to baseline/normal -continue to monitor urine output, electrolytes and renal function <Jacqui Roberto MD - Last Filed: 03/13/25 09:58> (9) Cirrhosis: Code(s): K74.60 - Unspecified cirrhosis of liver <Itzel Torres Candy Student - Last Filed: 03/13/25 09:02> Status: Acute <Itzel Gupta, Student - Last Filed: 03/13/25 09:02> Assessment and Plan: Patient has a history of cirrhosis, states he has been told that his cirrhosis is due to medical issues -patient states he has never drank alcohol except night prior to admission he drank half a pint of vodka <Itzel Gupta, Student - Last Filed: 03/13/25 09:02> Assessment and Plan: DVT prophylaxis: Lovenox Stress ulcer prophylaxis: Protonix Nutrition: Ice chips Code Status: Full Critical Care Time Spent: 49 minutes Due to a high probability of clinically significant, life threatening deterioration, the patient required my highest level of preparedness to intervene emergently and I personally spent this critical care time directly and personally managing the patient. This critical care time included obtaining a history; examining the patient; pulse oximetry; ordering and review of studies; arranging urgent treatment with development of a management plan; evaluation of patient's response to treatment; frequent reassessment; and discussions with other providers. It was exclusive of separately billable procedures and treating other patients and teaching time. Please see Assessment and Plan section and the rest of the note for further information on patient assessment and treatment This dictation may have been done utilizing a voice recognition system. Attempts have been made to correct errors. However, there may be uncorrected grammatical, spelling, and recognitions errors present. <Itzel Gupta, Student - Last Filed: 03/13/25 09:02> DVT prophylaxis: Lovenox Stress ulcer prophylaxis: Protonix Nutrition: NPO for paracentesis procedure Code Status: Full Critical Care Time Spent: 33 minutes Due to a high probability of clinically significant, life threatening deterioration, the patient required my highest level of preparedness to intervene emergently and I personally spent this critical care time directly and personally managing the patient. This critical care time included obtaining a history; examining the patient; pulse oximetry; ordering and review of studies; arranging urgent treatment with development of a management plan; evaluation of patient's response to treatment; frequent reassessment; and discussions with other providers. It was exclusive of separately billable procedures and treating other patients and teaching time. Please see Assessment and Plan section and the rest of the note for further information on patient assessment and treatment This dictation may have been done utilizing a voice recognition system. Attempts have been made to correct errors. However, there may be uncorrected grammatical, spelling, and recognitions errors present. <Jacqui Roberto MD - Last Filed: 03/13/25 09:58> Subjective Date/time seen: 03/13/25 08:10 <Itzel Gupta Student - Last Filed: 03/13/25 09:02> Interval history: 03/13: Pt evaluated in the ICU. Pt reports sternal chest pain that began this morning. He describes the pain as intermittent and like an 8-pound sledgehammer hitting his chest. He denies any radiation of chest pain. Pt reports that he is uncomfortable and has not been able to sleep since being admitted to the ICU. Pt reports complete resolution of chest pain following dose of nitro. Pt had a large bowel movement this morning and denies blood in stool. He denies abdominal pain, nausea, and vomiting. He is scheduled for paracentesis with IR later today. <Itzel Gupta, Student - Last Filed: 03/13/25 09:02> Review of Systems Review of Systems: All systems reviewed & are unremarkable except as noted in HPI and below <Itzel Gupta Student - Last Filed: 03/13/25 09:02> Exam Narrative: General: Pleasant gentleman in no acute distress HEENT:? Pupils equal and reactive, sclera is clear, dry oral mucosa Neck:? Supple, right IJ in place Respiratory:? Decreased breath sounds bilaterally, no wheezing Cardiac:? S1-S2 normal, bradycardic Abdomen:? Soft, distended, hypoactive and distant bowel sounds, nontender, positive fluid thrill Extremities:? Bilateral lower extremity edema up to the thighs, faint palpable pedal pulses, Neuro:? Patient is awake, alert, oriented, nonfocal, answers to questions appropriately and follows simple commands Skin:? Right garrett wound from a ruptured blister noted, no surrounding erythema or purulent drainage Psych:? Normal mentation and affect <Itzel Gupta, Student - Last Filed: 03/13/25 09:02> Objective Data Vital Signs Vital Signs: Vital Signs - 24 hr 03/12/25 08:11 03/12/25 08:21 03/12/25 08:31 Temperature Pulse Rate 64 53 L 55 L Respiratory Rate 15 12 13 Blood Pressure 109/72 106/58 L 105/58 L Pulse Oximetry 95 93 95 Oxygen Delivery Fraction of Inspired Oxygen 03/12/25 08:41 03/12/25 08:51 03/12/25 09:01 Temperature Pulse Rate 53 L 53 L 79 Respiratory Rate 11 L 12 12 Blood Pressure 103/66 104/66 118/85 Pulse Oximetry 91 92 90 Oxygen Delivery Fraction of Inspired Oxygen 03/12/25 09:11 03/12/25 09:21 03/12/25 09:31 Temperature Pulse Rate 50 L 54 L 54 L Respiratory Rate 13 12 13 Blood Pressure 132/70 113/66 122/77 Pulse Oximetry 90 92 98 Oxygen Delivery Fraction of Inspired Oxygen 03/12/25 09:41 03/12/25 09:51 03/12/25 10:01 Temperature Pulse Rate 57 L 65 56 L Respiratory Rate 13 12 13 Blood Pressure 127/70 112/66 114/65 Pulse Oximetry 95 93 95 Oxygen Delivery Fraction of Inspired Oxygen 03/12/25 10:30 03/12/25 10:45 03/12/25 10:57 Temperature 97.8 F Pulse Rate 73 73 60 Respiratory Rate 15 Blood Pressure 127/70 119/72 119/72 Pulse Oximetry 96 Oxygen Delivery Fraction of Inspired Oxygen 03/12/25 11:19 03/12/25 11:28 03/12/25 12:00 Temperature Pulse Rate 57 L 86 56 L Respiratory Rate 20 18 Blood Pressure 99/58 L Pulse Oximetry Oxygen Delivery Fraction of Inspired Oxygen 03/12/25 12:00 03/12/25 12:00 03/12/25 12:00 Temperature 97.8 F Pulse Rate 72 79 Respiratory Rate 15 Blood Pressure 99/58 L Pulse Oximetry 99 98 Oxygen Delivery Room Air Fraction of Inspired Oxygen 03/12/25 14:00 03/12/25 14:00 03/12/25 14:00 Temperature 97.5 F L Pulse Rate 76 66 66 Respiratory Rate 12 Blood Pressure 98/64 L Pulse Oximetry 96 Oxygen Delivery Fraction of Inspired Oxygen 03/12/25 14:53 03/12/25 15:01 03/12/25 15:57 Temperature Pulse Rate 81 78 87 Respiratory Rate 18 Blood Pressure 124/78 104/88 Pulse Oximetry Oxygen Delivery Fraction of Inspired Oxygen 03/12/25 16:00 03/12/25 16:00 03/12/25 16:00 Temperature 97.6 F Pulse Rate 86 92 92 Respiratory Rate 16 18 17 Blood Pressure 110/68 Pulse Oximetry 97 97 98 Oxygen Delivery Room Air Room Air Fraction of Inspired Oxygen 03/12/25 16:00 03/12/25 16:00 03/12/25 16:04 Temperature Pulse Rate 92 81 87 Respiratory Rate 16 Blood Pressure 110/68 Pulse Oximetry Oxygen Delivery Fraction of Inspired Oxygen 03/12/25 18:00 03/12/25 18:00 03/12/25 18:00 Temperature 97.6 F Pulse Rate 83 82 82 Respiratory Rate 14 Blood Pressure 95/66 L 95/66 L Pulse Oximetry 96 Oxygen Delivery Fraction of Inspired Oxygen 03/12/25 20:00 03/12/25 20:00 03/12/25 20:00 Temperature 98.6 F Pulse Rate 82 88 88 Respiratory Rate 14 19 Blood Pressure 117/77 Pulse Oximetry 96 100 Oxygen Delivery Room Air Fraction of Inspired Oxygen 21 03/12/25 20:00 03/12/25 20:05 03/12/25 20:09 Temperature Pulse Rate 88 89 90 Respiratory Rate 18 18 Blood Pressure 117/77 Pulse Oximetry 97 Oxygen Delivery Room Air Fraction of Inspired Oxygen 03/12/25 20:16 03/12/25 21:00 03/12/25 22:00 Temperature Pulse Rate 92 85 91 Respiratory Rate 17 18 Blood Pressure 115/95 H Pulse Oximetry 97 Oxygen Delivery Fraction of Inspired Oxygen 03/12/25 22:00 03/12/25 22:00 03/13/25 00:00 Temperature Pulse Rate 87 91 91 Respiratory Rate 16 16 Blood Pressure 120/69 110/72 Pulse Oximetry 100 100 Oxygen Delivery Room Air Fraction of Inspired Oxygen 21 03/13/25 00:00 03/13/25 00:00 03/13/25 00:00 Temperature 98.3 F Pulse Rate 91 92 92 Respiratory Rate 20 Blood Pressure 113/67 113/67 Pulse Oximetry 100 Oxygen Delivery Fraction of Inspired Oxygen 03/13/25 02:00 03/13/25 02:00 03/13/25 02:00 Temperature Pulse Rate 90 89 89 Respiratory Rate 16 Blood Pressure 100/69 100/69 Pulse Oximetry 97 Oxygen Delivery Fraction of Inspired Oxygen 03/13/25 02:14 03/13/25 02:22 03/13/25 04:00 Temperature Pulse Rate 91 86 88 Respiratory Rate 16 14 Blood Pressure 109/67 Pulse Oximetry Oxygen Delivery Fraction of Inspired Oxygen 03/13/25 04:00 03/13/25 04:00 03/13/25 04:00 Temperature 98.3 F Pulse Rate 75 75 75 Respiratory Rate 14 16 Blood Pressure 117/56 L Pulse Oximetry 97 97 Oxygen Delivery Room Air Fraction of Inspired Oxygen 03/13/25 06:00 03/13/25 06:00 03/13/25 06:00 Temperature 98.3 F Pulse Rate 91 91 91 Respiratory Rate 16 Blood Pressure 135/81 138/81 Pulse Oximetry 99 Oxygen Delivery Fraction of Inspired Oxygen <Itzel Gupta, Student - Last Filed: 03/13/25 09:02> Intake/Output Intake/Output: Intake & Output 03/10/25 03/11/25 03/12/25 03/13/25 23:59 23:59 23:59 23:59 Intake Total 4933.1 550 Output Total 1300 2000 Balance 3633.1 -1450 <Itzel Gupta, Student - Last Filed: 03/13/25 09:02> Meds/Results Medications: Active Medications Generic Name Dose Route Start Last Admin Trade Name Freq PRN Reason Stop Dose Admin Hydrocodone Bitart/Acetaminophen 1 tab 03/12/25 16:45 03/13/25 07:16 Hydrocodone/Acetaminophen (*Crx) 5-325 Mg Tablet PO 1 tab Q6H PRN Administration Pain Rated 4-6 Albuterol/Ipratropium 3 ml 03/12/25 11:00 03/13/25 02:02 Ipratropium 0.5 Mg/Albuterol Sulfate 2.5 Mg Ampul.Neb 3 Ml INHALATION 3 ml Q6HRT HERNAN Administration Dextrose 12.5 gm 03/12/25 10:57 Dextrose 50% 25 Gm/50 Ml Syringe IV PUSH PRN PRN Hypoglycemia Protocol Enoxaparin Sodium 40 mg 03/13/25 09:00 03/13/25 08:07 Enoxaparin 40 Mg/0.4 Ml Syringe SUB-Q Not Given DAILY HERNAN Glucagon 1 mg 03/12/25 10:57 Glucagon For Inj 1 Mg Vial IM PRN PRN Hypoglycemia Protocol Glucose 15 gm 03/12/25 10:57 Glucose Oral Gel 15 Gm Of Glucse In 37.5 Gm Tube PO PRN PRN Hypoglycemia Protocol Norepinephrine Bitartrate 8 mg in 250 mls @ 0 mls/hr 03/12/25 05:40 03/13/25 06:00 Levophed 8 Mg/D5w 250 Ml IV CONT 0 mcg/min .Q0M HERNAN 0 mls/hr Titration Protocol 0 MCG/MIN Vancomycin HCl 1,500 mg in 500 mls @ 250 mls/hr 03/13/25 08:00 Vancomycin 1,500 Mg/Ns 500 Ml IVPB 03/13/25 10:00 Q24H HERNAN Ceftriaxone Sodium 2 gm in 100 mls @ 200 mls/hr 03/12/25 09:00 03/13/25 08:00 Rocephin 2 Gm/Ns 100 Ml IVPB 100 mls/hr QAM HERNAN Administration Metronidazole 500 mg in 100 mls @ 100 mls/hr 03/12/25 09:00 03/13/25 05:55 Flagyl 500 Mg/Iso Soln 100 Ml IVPB 100 mls/hr Q8HR HERNAN Administration Dextrose 1,000 mls @ 100 mls/hr 03/12/25 10:57 Dextrose 5% 1,000 Ml IVPB PRN PRN Hypoglycemia Protocol Vancomycin HCl 1,500 mg in 500 mls @ 250 mls/hr 03/13/25 20:00 Vancomycin 1,500 Mg/Ns 500 Ml IVPB Q12H HERNAN Insulin Aspart 3 - 6 units 03/12/25 12:00 03/13/25 06:43 Insulin Aspart (*Bkc) 100 Units/Ml SUB-Q Not Given Q6HR HERNAN Protocol Nitroglycerin 0.4 mg 03/13/25 07:39 03/13/25 07:54 Nitroglycerin Sl 0.4 Mg Tablet SUBLINGUAL 0.4 mg Q5MIN PRN Administration Chest Pain Pantoprazole Sodium 40 mg 03/12/25 21:00 03/13/25 07:59 Pantoprazole Sodium Iv 40 Mg Vial IV PUSH 40 mg Q12HR HERNAN Administration Perflutren Lipid Microsphere 0 ml 03/13/25 07:20 Perflutren Lipid Microspheres 1.5 Ml Vial Diluted To 10 Ml Total Volume IV PUSH 03/16/25 07:20 ONCE PRN adequate visualization Protocol Sodium Chloride 10 ml 03/12/25 14:00 03/13/25 06:44 Central Line Flush IV PUSH 10 ml Q8HR HERNAN Administration Sodium Chloride 20 ml 03/12/25 10:37 Central Line Flush IV PUSH PRN PRN after blood draws <Itzel Brian Gupta, Student - Last Filed: 03/13/25 09:02> Radiology Results: ITS Impressions Chest/Abdomen/Pelvis CT 03/12/25 07:15 IMPRESSION: 1. Lingular airspace disease, compatible with pneumonia. New nodular densities right upper lobe may also be infectious/inflammatory, although metastatic disease not excluded. 2: Stable 12 mm pleural-based right lower lobe nodule, likely benign. 3: Cirrhosis of the liver with moderate ascites. Head CT 03/12/25 14:35 IMPRESSION: No acute intracranial process. Chest X-Ray 03/13/25 06:11 Impression: Probable mild bibasilar pulmonary edema. Correlate clinically for pneumonia. Right IJ line. <Itzel Brian Danettebrandi, Student - Last Filed: 03/13/25 09:02> Labs Labs: Laboratory Results - last 24 hr 03/12/25 03/12/25 03/12/25 05:44 10:49 11:32 WBC 1.9 L* RBC 2.54 L Hgb 8.1 L Hct 25.6 L MCV 100.8 H MCH 31.9 MCHC 31.6 L RDW 21.6 H Plt Count 96 L MPV 10.7 H Immature Gran % (Auto) 0.5 Neut % (Auto) 72.4 Lymph % (Auto) 19.1 Motley % (Auto) 6.4 Eos % (Auto) 1.1 Baso % (Auto) 0.5 Lymph # (Auto) 0.36 L Motley # (Auto) 0.1 Eos # (Auto) 0.0 Baso # (Auto) 0.0 Abs Immat Gran (auto) 0.01 Absolute Neuts (auto) 1.4 Absolute Nucleated RBC 0.000 Nucleated RBC % 0.0 % Immature Plt Fraction 2.7 Puncture Site ABG pH ABG pCO2 ABG pO2 ABG PO2/FiO2 Ratio ABG HCO3 ABG O2 Saturation ABG O2 Content ABG Base Excess A-a Gradient Oxyhemoglobin Total Hemoglobin O2 Delivery Device O2 Liters/Min FiO2 Sodium 127 L Potassium 5.4 H Chloride 100 Carbon Dioxide 21 L Anion Gap 6 BUN 21 H Creatinine 1.30 Estim Creat Clear Calc 62 Estimated GFR 54 L Glucose 144 H POC Capillary Glucose Hemoglobin A1c 5.6 Lactic Acid 1.4 Calcium 7.3 L Phosphorus 4.1 Magnesium 2.2 Iron 103 TIBC 278 % Saturation 37 Ferritin 141.00 Total Bilirubin 0.7 AST 44 ALT 50 Alkaline Phosphatase 161 H Ammonia 28 Total Protein 6.0 L Albumin 2.5 L Vitamin B12 Folate TSH 3.590 Nasal MRSA (PCR) Salicylates Urine Opiates Screen Negative Urine Methadone Screen Negative Acetaminophen Ur Barbiturates Screen Negative Ur Phencyclidine Scrn Negative Ur Amphetamine Screen Negative U Benzodiazepines Scrn Negative Urine Cocaine Screen Negative U Cannabinoids Screen Positive A Ethyl Alcohol Blood Type Antibody Screen 03/12/25 03/12/25 03/12/25 11:36 11:46 11:53 WBC RBC Hgb Hct MCV MCH MCHC RDW Plt Count MPV Immature Gran % (Auto) Neut % (Auto) Lymph % (Auto) Motley % (Auto) Eos % (Auto) Baso % (Auto) Lymph # (Auto) Motley # (Auto) Eos # (Auto) Baso # (Auto) Abs Immat Gran (auto) Absolute Neuts (auto) Absolute Nucleated RBC Nucleated RBC % % Immature Plt Fraction Puncture Site ABG pH ABG pCO2 ABG pO2 ABG PO2/FiO2 Ratio ABG HCO3 ABG O2 Saturation ABG O2 Content ABG Base Excess A-a Gradient Oxyhemoglobin Total Hemoglobin O2 Delivery Device O2 Liters/Min FiO2 Sodium Potassium Chloride Carbon Dioxide Anion Gap BUN Creatinine Estim Creat Clear Calc Estimated GFR Glucose POC Capillary Glucose 150 H Hemoglobin A1c Lactic Acid Calcium Phosphorus Magnesium Iron TIBC % Saturation Ferritin Total Bilirubin AST ALT Alkaline Phosphatase Ammonia Total Protein Albumin Vitamin B12 Folate TSH Nasal MRSA (PCR) Not detected Salicylates < 1.0 L Urine Opiates Screen Urine Methadone Screen Acetaminophen < 10 L Ur Barbiturates Screen Ur Phencyclidine Scrn Ur Amphetamine Screen U Benzodiazepines Scrn Urine Cocaine Screen U Cannabinoids Screen Ethyl Alcohol < 10 Blood Type Antibody Screen 03/12/25 03/12/25 03/12/25 13:38 13:59 17:31 WBC RBC Hgb Hct MCV MCH MCHC RDW Plt Count MPV Immature Gran % (Auto) Neut % (Auto) Lymph % (Auto) Motley % (Auto) Eos % (Auto) Baso % (Auto) Lymph # (Auto) Motley # (Auto) Eos # (Auto) Baso # (Auto) Abs Immat Gran (auto) Absolute Neuts (auto) Absolute Nucleated RBC Nucleated RBC % % Immature Plt Fraction Puncture Site Left radial ABG pH 7.382 ABG pCO2 37.3 ABG pO2 74.3 L ABG PO2/FiO2 Ratio 3.54 ABG HCO3 21.7 L ABG O2 Saturation 94.8 L ABG O2 Content 12.1 L ABG Base Excess -3.1 A-a Gradient 30.8 Oxyhemoglobin 91.9 Total Hemoglobin 9.3 L O2 Delivery Device Not Reportable O2 Liters/Min Not Reportable FiO2 21 Sodium 129 L Potassium 5.0 Chloride 101 Carbon Dioxide 22 Anion Gap 6 BUN 22 H Creatinine 1.25 Estim Creat Clear Calc 69 Estimated GFR 57 L Glucose 153 H POC Capillary Glucose 221 H Hemoglobin A1c Lactic Acid Calcium 7.5 L Phosphorus Magnesium Iron TIBC % Saturation Ferritin Total Bilirubin AST ALT Alkaline Phosphatase Ammonia Total Protein Albumin Vitamin B12 Folate TSH Nasal MRSA (PCR) Salicylates Urine Opiates Screen Urine Methadone Screen Acetaminophen Ur Barbiturates Screen Ur Phencyclidine Scrn Ur Amphetamine Screen U Benzodiazepines Scrn Urine Cocaine Screen U Cannabinoids Screen Ethyl Alcohol Blood Type A Positive Antibody Screen Negative 03/12/25 03/13/25 03/13/25 23:57 05:37 06:01 WBC 3.2 L RBC 2.31 L Hgb 7.4 L Hct 22.6 L MCV 97.8 MCH 32.0 MCHC 32.7 RDW 21.6 H Plt Count 76 L MPV 10.2 Immature Gran % (Auto) 0.6 H Neut % (Auto) 89.1 H Lymph % (Auto) 7.8 L Motley % (Auto) 2.5 L Eos % (Auto) 0.0 Baso % (Auto) 0.0 L Lymph # (Auto) 0.25 L Motley # (Auto) 0.1 Eos # (Auto) 0.0 Baso # (Auto) 0.0 Abs Immat Gran (auto) 0.02 Absolute Neuts (auto) 2.9 Absolute Nucleated RBC 0.000 Nucleated RBC % 0.0 % Immature Plt Fraction 2.0 Puncture Site ABG pH ABG pCO2 ABG pO2 ABG PO2/FiO2 Ratio ABG HCO3 ABG O2 Saturation ABG O2 Content ABG Base Excess A-a Gradient Oxyhemoglobin Total Hemoglobin O2 Delivery Device O2 Liters/Min FiO2 Sodium 131 L Potassium 5.0 Chloride 102 Carbon Dioxide 22 Anion Gap 7 BUN 24 H Creatinine 1.06 Estim Creat Clear Calc 81 Estimated GFR > 60 Glucose 142 H POC Capillary Glucose 173 H 181 H Hemoglobin A1c Lactic Acid 2.3 H Calcium 7.6 L Phosphorus 3.7 Magnesium 2.4 H Iron TIBC % Saturation Ferritin Total Bilirubin 1.0 AST 39 ALT 39 Alkaline Phosphatase 126 Ammonia 10 Total Protein 6.0 L Albumin 2.9 L Vitamin B12 > 1000.0 H Folate 8.0 TSH Nasal MRSA (PCR) Salicylates Urine Opiates Screen Urine Methadone Screen Acetaminophen Ur Barbiturates Screen Ur Phencyclidine Scrn Ur Amphetamine Screen U Benzodiazepines Scrn Urine Cocaine Screen U Cannabinoids Screen Ethyl Alcohol Blood Type Antibody Screen <Itzel Gupta, Student - Last Filed: 03/13/25 09:02> Attestation Student Attestation H&P performed by RAFAEL Summers-AMNA <Itzel Gupta Student - Last Filed: 03/13/25 09:02>
[2025-03-13] MEDS: VANCOMYCIN 1,500 MG/NS 500 ML 1,500 MG/500 ML BAG 250 MG IVPB (08:17)
[2025-03-13 08:26] LABS: Troponin I 0.014 ng/mL (0.000-0.034)
[2025-03-13] MEDS: MORPHINE SULFATE (*CRX) 2 MG/ML INJ IV PUSH (08:45)
[2025-03-13 08:54] LABS: Lactic Acid 3.4 mmol/L (0.7-2.0)
--- NOTE | 2025-03-13 10:20 | P.CONCA_ITS ---
Assessment and Plan Assessment and plan (1) Chest pain: Code(s): R07.9 - Chest pain, unspecified Status: Acute Assessment and Plan: Onset of substernal chest pain this morning. EKG obtained showed sinus rhythm with first degree AVB and LBBB which is not new. Troponin negative x 2, will trend troponin levels. Doubt his chest pain is cardiac in nature as there is a reproducible component, though his history is difficult to follow making pain assessment challenging. If troponin levels remain negative, no plan for further cardiac evaluation unless there is a change in his clinical status. (2) Essential (primary) hypertension: Code(s): I10 - Essential (primary) hypertension Status: Acute Assessment and Plan: Hypotensive, on levophed (3) Sepsis: Code(s): A41.9 - Sepsis, unspecified organism Status: Acute Assessment and Plan: Per critical care team (4) CAD (coronary artery disease): Code(s): I25.10 - Atherosclerotic heart disease of [place] coronary artery without angina pectoris Status: Acute Assessment and Plan: Hx CAD with prior bypass. LHC in 2019 shows patent grafts. Continue with plavix and statin (5) Cardiomyopathy: Code(s): I42.9 - Cardiomyopathy, unspecified Status: Acute Assessment and Plan: EF 45-50% on echo here. Resume GDMT when blood pressure improves. History of Present Illness History of Present Illness Consult date/time: 03/13/25 10:20 Requesting physician: Jacqui Roberto MD Consult reason: chest pain Reason For Visit: Cirrhosis, Spetic Shock Narrative: Julius Campos is a 70 year old male with COPD, CAD (CABG x 5 in 2017), cardiomyopathy (EF 35%), and nonalcoholic cirrhosis of the liver (follows with Dr. Lugo at [facility]). Cardiology is consulted for chest pain. This is a patient who presents to [place] [facility] with complaints of weakness, nausea, vomiting and abdominal distension. Patient was recently hospitalized at [facility] from 02/19/25 - 03/05/2025 for septic shock secondary to pneumonia. He complained of chest pain this morning that he describes as feeling like someone is hitting him in the chest with a sledge hammer. His history is somewhat inconsistent as he reports resolution of the pain with nitro but also states the pain is constant and ongoing. During my visit with him his main complaint is that he has been unable to sleep for 40 hours and he is very agitated and upset in this regard. He does report worsening of the pain with palpation. The chest pain does not radiate. EKG and troponin were performed earlier this morning with his initial complaint of chest pain - EKG showed sinus rhythm with 1st degree AVB and LBBB which is not new. Troponin was negative. 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 use of antiplatelet drug Dietary counseling and surveillance (08/08/16) Chronic obstructive pulmonary disease, unspecified Bipolar disorder, unspecified Surgical History Surgical History History of shoulder surgery biceps tendon repair History of cervical spinal surgery History of carpal tunnel release History of heart bypass surgery 5 way Hx of CABG Family History Family History Mother Family history of chronic obstructive pulmonary disease Patient's mother is Father Family history of chronic obstructive pulmonary disease Patient's father is Other Hypertension Social History Social History Smoking packs per day: 0.5 Smoking cigarettes per day: 10.0 Smoking status: Current every day smoker Tobacco type: cigarettes Alcohol intake: never Substance use: never Substance use type: does not use Do You Feel Safe in your Home?: Yes Lack of Transportation: No Lack of Food: Never True Current Housing: I Have Housing Concerned About Future Housing: No Difficulty Paying Gas/Electric Bills: No Difficulty Paying for Meds: No Currently Unemployed: No Education: Decline to Answer Difficulty w/ Childcare or Family Care: No Living arrangements: alone Spiritual care concerns: No Meds Home Medications and Allergies Home Medications ?Medication ?Instructions ?Recorded ?Confirmed ?Type atorvastatin 10 mg tablet 10 mg PO DAILY 10/30/22 03/12/25 History clopidogrel 75 mg tablet 75 mg PO DAILY 10/30/22 03/12/25 History insulin lispro protamine-lispro 40 unit subcut BID 10/30/22 03/12/25 History 100 unit/mL (75-25) subcutaneous susp (Humalog Mix 75-25(U-100)Insuln) albuterol sulfate 90 mcg/actuation 1 puff inhalation Q4-6H PRN 12/16/23 03/12/25 History aerosol inhaler Shortness Of Breath Or Wheezing carvedilol 6.25 mg tablet 3.125 mg PO BID 12/16/23 03/12/25 History nitroglycerin 0.4 mg sublingual 0.4 mg sublingual PRN PRN Chest 12/16/23 03/12/25 History tablet Pain sacubitril 24 mg-valsartan 26 mg 1 tablet PO BID 12/16/23 03/12/25 History tablet (Entresto) allopurinol 300 mg tablet 300 mg PO DAILY 03/12/25 03/12/25 History furosemide 20 mg tablet 20 mg PO Q12H 03/12/25 03/12/25 History hydrocodone 10 mg-acetaminophen 10 - 325 tablet PO BID PRN pain 03/12/25 03/12/25 History 325 mg tablet olanzapine 10 mg tablet 10 mg PO HS 03/12/25 03/12/25 History pantoprazole 40 mg tablet,delayed 40 mg PO Q12H 03/12/25 03/12/25 History release Allergies Allergy/AdvReac Type Severity Reaction Status Date / Time Penicillins Allergy Unknown Verified 03/12/25 12:03 Vital Signs Vital Signs - 24 hr 03/12/25 10:30 03/12/25 10:45 03/12/25 10:57 Temperature 36.6 C Pulse Rate 73 73 60 Respiratory Rate 15 Blood Pressure 127/70 119/72 119/72 Pulse Oximetry 96 Oxygen Delivery Oxygen Flow Rate Fraction of Inspired Oxygen 03/12/25 11:19 03/12/25 11:28 03/12/25 12:00 Temperature Pulse Rate 57 L 86 56 L Respiratory Rate 20 18 Blood Pressure 99/58 L Pulse Oximetry Oxygen Delivery Oxygen Flow Rate Fraction of Inspired Oxygen 03/12/25 12:00 03/12/25 12:00 03/12/25 12:00 Temperature 36.6 C Pulse Rate 72 79 Respiratory Rate 15 Blood Pressure 99/58 L Pulse Oximetry 99 98 Oxygen Delivery Room Air Oxygen Flow Rate Fraction of Inspired Oxygen 03/12/25 14:00 03/12/25 14:00 03/12/25 14:00 Temperature 36.4 C L Pulse Rate 76 66 66 Respiratory Rate 12 Blood Pressure 98/64 L Pulse Oximetry 96 Oxygen Delivery Oxygen Flow Rate Fraction of Inspired Oxygen 03/12/25 14:53 03/12/25 15:01 03/12/25 15:57 Temperature Pulse Rate 81 78 87 Respiratory Rate 18 Blood Pressure 124/78 104/88 Pulse Oximetry Oxygen Delivery Oxygen Flow Rate Fraction of Inspired Oxygen 03/12/25 16:00 03/12/25 16:00 03/12/25 16:00 Temperature 36.4 C Pulse Rate 86 92 92 Respiratory Rate 16 18 17 Blood Pressure 110/68 Pulse Oximetry 97 97 98 Oxygen Delivery Room Air Room Air Oxygen Flow Rate Fraction of Inspired Oxygen 03/12/25 16:00 03/12/25 16:00 03/12/25 16:04 Temperature Pulse Rate 92 81 87 Respiratory Rate 16 Blood Pressure 110/68 Pulse Oximetry Oxygen Delivery Oxygen Flow Rate Fraction of Inspired Oxygen 03/12/25 18:00 03/12/25 18:00 03/12/25 18:00 Temperature 36.4 C Pulse Rate 83 82 82 Respiratory Rate 14 Blood Pressure 95/66 L 95/66 L Pulse Oximetry 96 Oxygen Delivery Oxygen Flow Rate Fraction of Inspired Oxygen 03/12/25 20:00 03/12/25 20:00 03/12/25 20:00 Temperature 37.0 C Pulse Rate 82 88 88 Respiratory Rate 14 19 Blood Pressure 117/77 Pulse Oximetry 96 100 Oxygen Delivery Room Air Oxygen Flow Rate Fraction of Inspired Oxygen 21 03/12/25 20:00 03/12/25 20:05 03/12/25 20:09 Temperature Pulse Rate 88 89 90 Respiratory Rate 18 18 Blood Pressure 117/77 Pulse Oximetry 97 Oxygen Delivery Room Air Oxygen Flow Rate Fraction of Inspired Oxygen 03/12/25 20:16 03/12/25 21:00 03/12/25 22:00 Temperature Pulse Rate 92 85 91 Respiratory Rate 17 18 Blood Pressure 115/95 H Pulse Oximetry 97 Oxygen Delivery Oxygen Flow Rate Fraction of Inspired Oxygen 03/12/25 22:00 03/12/25 22:00 03/13/25 00:00 Temperature Pulse Rate 87 91 91 Respiratory Rate 16 16 Blood Pressure 120/69 110/72 Pulse Oximetry 100 100 Oxygen Delivery Room Air Oxygen Flow Rate Fraction of Inspired Oxygen 21 03/13/25 00:00 03/13/25 00:00 03/13/25 00:00 Temperature 36.8 C Pulse Rate 91 92 92 Respiratory Rate 20 Blood Pressure 113/67 113/67 Pulse Oximetry 100 Oxygen Delivery Oxygen Flow Rate Fraction of Inspired Oxygen 03/13/25 02:00 03/13/25 02:00 03/13/25 02:00 Temperature Pulse Rate 90 89 89 Respiratory Rate 16 Blood Pressure 100/69 100/69 Pulse Oximetry 97 Oxygen Delivery Oxygen Flow Rate Fraction of Inspired Oxygen 03/13/25 02:14 03/13/25 02:22 03/13/25 04:00 Temperature Pulse Rate 91 86 88 Respiratory Rate 16 14 Blood Pressure 109/67 Pulse Oximetry Oxygen Delivery Oxygen Flow Rate Fraction of Inspired Oxygen 03/13/25 04:00 03/13/25 04:00 03/13/25 04:00 Temperature 36.8 C Pulse Rate 75 75 75 Respiratory Rate 14 16 Blood Pressure 117/56 L Pulse Oximetry 97 97 Oxygen Delivery Room Air Oxygen Flow Rate Fraction of Inspired Oxygen 03/13/25 06:00 03/13/25 06:00 03/13/25 06:00 Temperature 36.8 C Pulse Rate 91 91 91 Respiratory Rate 16 Blood Pressure 135/81 138/81 Pulse Oximetry 99 Oxygen Delivery Oxygen Flow Rate Fraction of Inspired Oxygen 03/13/25 07:15 03/13/25 07:53 03/13/25 07:58 Temperature Pulse Rate 92 90 97 Respiratory Rate 20 18 22 H Blood Pressure 148/86 H 139/83 113/79 Pulse Oximetry 99 100 100 Oxygen Delivery Oxygen Flow Rate Fraction of Inspired Oxygen 03/13/25 08:00 03/13/25 08:00 03/13/25 08:00 Temperature Pulse Rate 92 93 Respiratory Rate Blood Pressure 109/72 Pulse Oximetry 100 Oxygen Delivery Nasal Cannula Oxygen Flow Rate 2 Fraction of Inspired Oxygen 03/13/25 08:00 03/13/25 08:05 03/13/25 08:21 Temperature 36.4 C L Pulse Rate 93 93 Respiratory Rate 20 18 Blood Pressure 109/72 105/74 Pulse Oximetry 96 95 100 Oxygen Delivery Nasal Cannula Oxygen Flow Rate 2 Fraction of Inspired Oxygen 28 03/13/25 08:21 03/13/25 08:29 03/13/25 08:39 Temperature Pulse Rate 91 88 93 Respiratory Rate 16 16 20 Blood Pressure 134/82 Pulse Oximetry 100 Oxygen Delivery Oxygen Flow Rate Fraction of Inspired Oxygen 03/13/25 09:30 03/13/25 09:45 03/13/25 10:00 Temperature Pulse Rate 95 93 93 Respiratory Rate 22 H 20 Blood Pressure 138/84 114/63 Pulse Oximetry 100 96 Oxygen Delivery Oxygen Flow Rate Fraction of Inspired Oxygen 03/13/25 10:00 Temperature Pulse Rate 93 Respiratory Rate 18 Blood Pressure 134/87 Pulse Oximetry 100 Oxygen Delivery Oxygen Flow Rate Fraction of Inspired Oxygen Results Labs and Meds 03/13/25 05:37 03/13/25 05:37 Lab results: Cardiac Enzymes 03/12/25 03/13/25 03/13/25 Range/Units 10:49 05:37 07:49 AST 44 39 (17-59) U/L Troponin I 0.014 (0.000-0.034) ng/mL CBC 03/12/25 03/13/25 Range/Units 10:49 05:37 WBC 1.9 L* 3.2 L (4.5-10.0) K/mm3 RBC 2.54 L 2.31 L (4.6-6.20) M/mm3 Hgb 8.1 L 7.4 L (14.0-18.0) g/dL Hct 25.6 L 22.6 L (42.0-52.0) % Plt Count 96 L 76 L (150-375) k/mm3 Lymph # (Auto) 0.36 L 0.25 L (0.9-3.2) K/mm3 [place] # (Auto) 0.1 0.1 (0.1-0.6) K/mm3 Eos # (Auto) 0.0 0.0 (0-0.3) K/mm3 Baso # (Auto) 0.0 0.0 (0.0-0.1) K/mm3 Comprehensive Metabolic Panel 03/12/25 03/12/25 03/13/25 Range/Units 10:49 13:59 05:37 Sodium 127 L 129 L 131 L (137-145) mmol/L Potassium 5.4 H 5.0 5.0 (3.4-5.0) mmol/L Chloride 100 101 102 (98-107) mmol/L Carbon Dioxide 21 L 22 22 (22-30) mmol/L BUN 21 H 22 H 24 H (9-20) mg/dL Creatinine 1.30 1.25 1.06 (0.7-1.3) mg/dL Glucose 144 H 153 H 142 H (65-110) mg/dL Calcium 7.3 L 7.5 L 7.6 L (8.4-10.2) mg/dL AST 44 39 (17-59) U/L ALT 50 39 (6-50) U/L Alkaline Phosphatase 161 H 126 (38-126) U/L Total Protein 6.0 L 6.0 L (6.3-8.2) g/dL Albumin 2.5 L 2.9 L (3.5-5.1) g/dL Intake and Output 03/12/25 03/13/25 03/13/25 23:59 07:59 15:59 Intake Total 961.3 750 100 Output Total 1300 2000 Balance -338.7 -1250 100 Intake: IV 311.3 300 100 Norepinephrine 8 mg/D5w 250 ml 11.3 0 0 8 mg In 250 ml @ 0 MCG/MIN IV CONT .Q0M HERNAN Rx#:[id number] Albumin Human 25% 25 gm/100 ml 100 200 100 ml @ 60 mls/hr IVPB Q6HR HERNAN Rx#:[id number] cefTRIAXone 2 GM/NS 100 ML 2 gm 100 In 100 ml @ 200 mls/hr IVPB QAM HERNAN Rx#:[id number] metroNIDAZOLE 500 MG/ISO 100ML 200 100 500 mg In 100 ml @ 100 mls/hr IVPB Q8HR HERNAN Rx#:[id number] Oral 650 450 Output: Catheter Urine 1300 1500 Urethral Catheter 1300 1500 Stool 500 Other: Number of Bowel Movements Today 1 Patient Weight 03/13/25 23:59 Weight 131.8 kg
[2025-03-13] MEDS: LORazepam INJ (*CRX) 2 MG/ML VIAL 0.25 MG IV PUSH (10:28)
[2025-03-13] MEDS: CEFEPIME 2 GM/NS 50 ML 2 GM/50 ML BAG IVPB ×2 (10:31→17:04)
[2025-03-13] MEDS: PERFLUTREN LIPID MICROSPHERES 1.5 ML VIAL DILUTED TO 10 ML TOTAL VOLUME IV PUSH (10:55)
[2025-03-13 11:36] LABS: Troponin I 0.017 ng/mL (0.000-0.034)
[2025-03-13 12:19] LABS: Glucose Point of Care 165 mg/dl (65-105)
--- NOTE | 2025-03-13 12:29 | IVDEFINITY ---
Prior to administration of IV Definity the patient was educated on the risks and benefits of the imaging enhancing agent including potential adverse side effects. The patient verbalized understanding. Allergies were verified. No exclusion criteria were identified and at least one of the following inclusion criteria were met: 1) physician request, 2) patient technically difficult to image (per the [place] [employer] guidelines of two or more segments not discernable within the apical view), or 3) questionable left ventricular function. ?
--- NOTE | 2025-03-13 15:11 | P.PNIM_ITS ---
Progress Note: A&P Assessment and Plan (1) Chest pain: Code(s): R07.9 - Chest pain, unspecified Status: Acute (2) Septic shock: Code(s): A41.9 - Sepsis, unspecified organism; R65.21 - Severe sepsis with septic shock Status: Acute (3) Pneumonia: Code(s): J18.9 - Pneumonia, unspecified organism Status: Acute (4) Ascites: Code(s): R18.8 - Other ascites Status: Acute (5) Diabetes: Code(s): E11.9 - Type 2 diabetes mellitus without complications Status: Acute Assessment and Plan: Patient history of diabetes, -Accu-Cheks and sliding scale insulin -HB A1c was 5.6 (6) Essential (primary) hypertension: Code(s): I10 - Essential (primary) hypertension Status: Acute Assessment and Plan: History of essential hypertension, will hold all antihypertensive as patient is on pressors -patient does take carvedilol, clopidogrel, Entresto at home (7) Chronic obstructive pulmonary disease, unspecified: Code(s): J44.9 - Chronic obstructive pulmonary disease, unspecified Status: Acute (8) Acute kidney injury: Code(s): N17.9 - Acute kidney failure, unspecified Status: Acute (9) Cirrhosis: Code(s): K74.60 - Unspecified cirrhosis of liver Status: Acute Assessment and Plan: Patient has a history of cirrhosis, states he has been told that his cirrhosis is due to medical issues -patient states he has never drank alcohol except night prior to admission he drank half a pint of vodka Plan Chest pain EKG no acute changes Troponin negative x2 Chest pain resolved with nitro ECHO showed EF 45-50% cardiology noted to trend troponin, if negative no further workup Septic shock, resolved From Pneumonia CT chest reviewed F/u Blood and sputum culture 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 MRSA negative Off IVF and Pressors monitor closely Pneumonia continue above care Liver cirrhosis with fluid overload: moderate ascites and abdominal wall and leg edema Hyperammonemia, 10 this morning paracentesis today Diuretics when stable Start lactulose GI consulted ALYSSA, resolved from septic shock Cr 1.25 to 1.06 continue above care Pancytopenia Likely from Liver cirrhosis WBC 1.9to 3.2, Hb 8.1 to 7.4, plts 96 to 76 B12/folate and iron panel wnl monitor DM2 SSI with accucheks adjust with clinical course Tobacco abuse patient noted he smokes 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 HTN Titrate home meds with clinical course DVT prophylaxis on Sq Lovenox Subjective Date/time seen: 03/13/25 15:11 Interval history: Complained of chest pain today Review of Systems Review of Systems: Limited ROS was done as noted in the above HPI, as patient was somnolent All systems reviewed & are unremarkable except as noted in HPI and below Exam Narrative: General: Somnolent Eyes: EOMI, PERRLA ENNT External ears normal, Neck is supple, no masses, Respiratory systems: Clear to auscultation Cardiovascular S1, S2, normal rhythm, no murmur, rub, or gallop; no thrill or palpable murmurs on palpation. Gastrointestinal: soft, non-tender, and non-distended abdomen with no masses; BS present Skin: no rash, lesions, ulcerations, subcutaneous nodules or induration Musculoskeletal: lower extremities and abd wall edema Neurologic: Alert and oriented x3, non focal Objective Data Vital Signs Vital Signs: Vital Signs - 24 hr 03/12/25 15:57 03/12/25 16:00 03/12/25 16:00 Temperature Pulse Rate 87 86 92 Respiratory Rate 18 16 18 Blood Pressure Pulse Oximetry 97 97 Oxygen Delivery Room Air Room Air Oxygen Flow Rate Fraction of Inspired Oxygen 03/12/25 16:00 03/12/25 16:00 03/12/25 16:00 Temperature 97.6 F Pulse Rate 92 92 81 Respiratory Rate 17 Blood Pressure 110/68 110/68 Pulse Oximetry 98 Oxygen Delivery Oxygen Flow Rate Fraction of Inspired Oxygen 03/12/25 16:04 03/12/25 18:00 03/12/25 18:00 Temperature 97.6 F Pulse Rate 87 83 82 Respiratory Rate 16 14 Blood Pressure 95/66 L Pulse Oximetry 96 Oxygen Delivery Oxygen Flow Rate Fraction of Inspired Oxygen 03/12/25 18:00 03/12/25 20:00 03/12/25 20:00 Temperature Pulse Rate 82 82 88 Respiratory Rate 14 Blood Pressure 95/66 L Pulse Oximetry 96 Oxygen Delivery Room Air Oxygen Flow Rate Fraction of Inspired Oxygen 21 03/12/25 20:00 03/12/25 20:00 03/12/25 20:05 Temperature 98.6 F Pulse Rate 88 88 89 Respiratory Rate 19 18 Blood Pressure 117/77 117/77 Pulse Oximetry 100 Oxygen Delivery Oxygen Flow Rate Fraction of Inspired Oxygen 03/12/25 20:09 03/12/25 20:16 03/12/25 21:00 Temperature Pulse Rate 90 92 85 Respiratory Rate 18 17 18 Blood Pressure 115/95 H Pulse Oximetry 97 97 Oxygen Delivery Room Air Oxygen Flow Rate Fraction of Inspired Oxygen 03/12/25 22:00 03/12/25 22:00 03/12/25 22:00 Temperature Pulse Rate 91 87 91 Respiratory Rate 16 Blood Pressure 120/69 110/72 Pulse Oximetry 100 Oxygen Delivery Oxygen Flow Rate Fraction of Inspired Oxygen 03/13/25 00:00 03/13/25 00:00 03/13/25 00:00 Temperature 98.3 F Pulse Rate 91 91 92 Respiratory Rate 16 20 Blood Pressure 113/67 Pulse Oximetry 100 100 Oxygen Delivery Room Air Oxygen Flow Rate Fraction of Inspired Oxygen 21 03/13/25 00:00 03/13/25 02:00 03/13/25 02:00 Temperature Pulse Rate 92 90 89 Respiratory Rate 16 Blood Pressure 113/67 100/69 Pulse Oximetry 97 Oxygen Delivery Oxygen Flow Rate Fraction of Inspired Oxygen 03/13/25 02:00 03/13/25 02:14 03/13/25 02:22 Temperature Pulse Rate 89 91 86 Respiratory Rate 16 14 Blood Pressure 100/69 Pulse Oximetry Oxygen Delivery Oxygen Flow Rate Fraction of Inspired Oxygen 03/13/25 04:00 03/13/25 04:00 03/13/25 04:00 Temperature Pulse Rate 88 75 75 Respiratory Rate 14 Blood Pressure 109/67 Pulse Oximetry 97 Oxygen Delivery Room Air Oxygen Flow Rate Fraction of Inspired Oxygen 03/13/25 04:00 03/13/25 06:00 03/13/25 06:00 Temperature 98.3 F 98.3 F Pulse Rate 75 91 91 Respiratory Rate 16 16 Blood Pressure 117/56 L 135/81 Pulse Oximetry 97 99 Oxygen Delivery Oxygen Flow Rate Fraction of Inspired Oxygen 03/13/25 06:00 03/13/25 07:15 03/13/25 07:53 Temperature Pulse Rate 91 92 90 Respiratory Rate 20 18 Blood Pressure 138/81 148/86 H 139/83 Pulse Oximetry 99 100 Oxygen Delivery Oxygen Flow Rate Fraction of Inspired Oxygen 03/13/25 07:58 03/13/25 08:00 03/13/25 08:00 Temperature Pulse Rate 97 92 Respiratory Rate 22 H Blood Pressure 113/79 Pulse Oximetry 100 100 Oxygen Delivery Nasal Cannula Oxygen Flow Rate 2 Fraction of Inspired Oxygen 03/13/25 08:00 03/13/25 08:00 03/13/25 08:05 Temperature 97.5 F L Pulse Rate 93 93 93 Respiratory Rate 20 18 Blood Pressure 109/72 109/72 105/74 Pulse Oximetry 96 95 Oxygen Delivery Oxygen Flow Rate Fraction of Inspired Oxygen 03/13/25 08:21 03/13/25 08:21 03/13/25 08:29 Temperature Pulse Rate 91 88 Respiratory Rate 16 16 Blood Pressure Pulse Oximetry 100 Oxygen Delivery Nasal Cannula Oxygen Flow Rate 2 Fraction of Inspired Oxygen 03/13/25 08:39 03/13/25 09:30 03/13/25 09:45 Temperature Pulse Rate 93 95 93 Respiratory Rate 20 22 H 20 Blood Pressure 134/82 138/84 114/63 Pulse Oximetry 100 100 96 Oxygen Delivery Oxygen Flow Rate Fraction of Inspired Oxygen 03/13/25 10:00 03/13/25 10:00 03/13/25 12:00 Temperature Pulse Rate 93 93 Respiratory Rate 18 Blood Pressure 134/87 Pulse Oximetry 100 100 Oxygen Delivery Nasal Cannula Oxygen Flow Rate 2 Fraction of Inspired Oxygen 03/13/25 12:00 03/13/25 12:00 03/13/25 14:00 Temperature 97.5 F L Pulse Rate 87 84 85 Respiratory Rate 18 Blood Pressure 135/75 Pulse Oximetry 99 Oxygen Delivery Oxygen Flow Rate Fraction of Inspired Oxygen 03/13/25 14:00 03/13/25 14:08 03/13/25 14:08 Temperature Pulse Rate 85 86 Respiratory Rate 18 22 H Blood Pressure 126/66 Pulse Oximetry 100 100 Oxygen Delivery Nasal Cannula Oxygen Flow Rate 2 Fraction of Inspired Oxygen 03/13/25 14:21 Temperature Pulse Rate 88 Respiratory Rate 20 Blood Pressure Pulse Oximetry Oxygen Delivery Oxygen Flow Rate Fraction of Inspired Oxygen Intake/Output Intake/Output: Intake & Output 03/10/25 03/11/25 03/12/25 03/13/25 23:59 23:59 23:59 23:59 Intake Total 4933.1 1400 Output Total 1300 2000 Balance 3633.1 -600 Meds/Results Medications: Active Medications Generic Name Dose Route Start Last Admin Trade Name Freq PRN Reason Stop Dose Admin Hydrocodone Bitart/Acetaminophen 1 tab 03/12/25 16:45 03/13/25 07:16 Hydrocodone/Acetaminophen (*Crx) 5-325 Mg Tablet PO 1 tab Q6H PRN Administration Pain Rated 4-6 Albuterol/Ipratropium 3 ml 03/12/25 11:00 03/13/25 14:08 Ipratropium 0.5 Mg/Albuterol Sulfate 2.5 Mg Ampul.Neb 3 Ml INHALATION 3 ml Q6HRT HERNAN Administration Dextrose 12.5 gm 03/12/25 10:57 Dextrose 50% 25 Gm/50 Ml Syringe IV PUSH PRN PRN Hypoglycemia Protocol Enoxaparin Sodium 40 mg 03/13/25 09:00 03/13/25 08:07 Enoxaparin 40 Mg/0.4 Ml Syringe SUB-Q Not Given DAILY HERNAN Glucagon 1 mg 03/12/25 10:57 Glucagon For Inj 1 Mg Vial IM PRN PRN Hypoglycemia Protocol Glucose 15 gm 03/12/25 10:57 Glucose Oral Gel 15 Gm Of Glucse In 37.5 Gm Tube PO PRN PRN Hypoglycemia Protocol Metronidazole 500 mg in 100 mls @ 100 mls/hr 03/12/25 09:00 03/13/25 07:00 Flagyl 500 Mg/Iso Soln 100 Ml IVPB Infused Q8HR HERNAN Infusion Dextrose 1,000 mls @ 100 mls/hr 03/12/25 10:57 Dextrose 5% 1,000 Ml IVPB PRN PRN Hypoglycemia Protocol Cefepime HCl 2 gm in 50 mls @ 100 mls/hr 03/13/25 10:00 03/13/25 11:06 Maxipime 2 Gm/Ns 50 Ml IVPB Infused Q8H HERNAN Infusion Insulin Aspart 3 - 6 units 03/12/25 12:00 03/13/25 12:20 Insulin Aspart (*Bkc) 100 Units/Ml SUB-Q Not Given Q6HR HERNAN Protocol Nitroglycerin 0.4 mg 03/13/25 07:39 03/13/25 09:36 Nitroglycerin Sl 0.4 Mg Tablet SUBLINGUAL 0.4 mg Q5MIN PRN Administration Chest Pain Pantoprazole Sodium 40 mg 03/12/25 21:00 03/13/25 07:59 Pantoprazole Sodium Iv 40 Mg Vial IV PUSH 40 mg Q12HR HERNAN Administration Sodium Chloride 10 ml 03/12/25 14:00 03/13/25 06:44 Central Line Flush IV PUSH 10 ml Q8HR HERNAN Administration Sodium Chloride 20 ml 03/12/25 10:37 Central Line Flush IV PUSH PRN PRN after blood draws Radiology Results: ITS Impressions Chest/Abdomen/Pelvis CT 03/12/25 07:15 IMPRESSION: 1. Lingular airspace disease, compatible with pneumonia. New nodular densities right upper lobe may also be infectious/inflammatory, although metastatic d isease not excluded. 2: Stable 12 mm pleural-based right lower lobe nodule, likely benign. 3: Cirrhosis of the liver with moderate ascites. Head CT 03/12/25 14:35 IMPRESSION: No acute intracranial process. Chest X-Ray 03/13/25 06:11 Impression: Probable mild bibasilar pulmonary edema. Correlate clinically for pneumonia. Right IJ line. Labs Labs: Laboratory Results - last 24 hr 03/12/25 03/12/25 03/12/25 05:44 17:31 23:57 WBC RBC Hgb Hct MCV MCH MCHC RDW Plt Count MPV Immature Gran % (Auto) Neut % (Auto) Lymph % (Auto) [place] % (Auto) Eos % (Auto) Baso % (Auto) Lymph # (Auto) [place] # (Auto) Eos # (Auto) Baso # (Auto) Abs Immat Gran (auto) Absolute Neuts (auto) Absolute Nucleated RBC Nucleated RBC % % Immature Plt Fraction Sodium Potassium Chloride Carbon Dioxide Anion Gap BUN Creatinine Estim Creat Clear Calc Estimated GFR Glucose POC Capillary Glucose 221 H 173 H Lactic Acid Calcium Phosphorus Magnesium Iron 103 TIBC 278 % Saturation 37 Ferritin 141.00 Total Bilirubin AST ALT Alkaline Phosphatase Ammonia Troponin I Total Protein Albumin Vitamin B12 Folate 03/13/25 03/13/25 03/13/25 05:37 06:01 07:49 WBC 3.2 L RBC 2.31 L Hgb 7.4 L Hct 22.6 L MCV 97.8 MCH 32.0 MCHC 32.7 RDW 21.6 H Plt Count 76 L MPV 10.2 Immature Gran % (Auto) 0.6 H Neut % (Auto) 89.1 H Lymph % (Auto) 7.8 L [place] % (Auto) 2.5 L Eos % (Auto) 0.0 Baso % (Auto) 0.0 L Lymph # (Auto) 0.25 L [place] # (Auto) 0.1 Eos # (Auto) 0.0 Baso # (Auto) 0.0 Abs Immat Gran (auto) 0.02 Absolute Neuts (auto) 2.9 Absolute Nucleated RBC 0.000 Nucleated RBC % 0.0 % Immature Plt Fraction 2.0 Sodium 131 L Potassium 5.0 Chloride 102 Carbon Dioxide 22 Anion Gap 7 BUN 24 H Creatinine 1.06 Estim Creat Clear Calc 81 Estimated GFR > 60 Glucose 142 H POC Capillary Glucose 181 H Lactic Acid 2.3 H Calcium 7.6 L Phosphorus 3.7 Magnesium 2.4 H Iron TIBC % Saturation Ferritin Total Bilirubin 1.0 AST 39 ALT 39 Alkaline Phosphatase 126 Ammonia 10 Troponin I 0.014 Total Protein 6.0 L Albumin 2.9 L Vitamin B12 > 1000.0 H Folate 8.0 03/13/25 03/13/25 03/13/25 08:39 11:01 12:15 WBC RBC Hgb Hct MCV MCH MCHC RDW Plt Count MPV Immature Gran % (Auto) Neut % (Auto) Lymph % (Auto) [place] % (Auto) Eos % (Auto) Baso % (Auto) Lymph # (Auto) [place] # (Auto) Eos # (Auto) Baso # (Auto) Abs Immat Gran (auto) Absolute Neuts (auto) Absolute Nucleated RBC Nucleated RBC % % Immature Plt Fraction Sodium Potassium Chloride Carbon Dioxide Anion Gap BUN Creatinine Estim Creat Clear Calc Estimated GFR Glucose POC Capillary Glucose 165 H Lactic Acid 3.4 H Calcium Phosphorus Magnesium Iron TIBC % Saturation Ferritin Total Bilirubin AST ALT Alkaline Phosphatase Ammonia Troponin I 0.017 D Total Protein Albumin Vitamin B12 Folate
[2025-03-13 15:52] LABS: Appearance Peritoneal Fluid Cloudy (Clear); Color Peritoneal Fluid Yellow (Colorless); Lymphocytes Peritoneal Fluid 14 %; Macrophages Peritoneal Fluid 68 %; Monocytes Peritoneal Fluid 6 %; Neutrophils Peritoneal Fluid 12 % (0-25); Nucleated Cells Peritoneal Flu 87 /uL (0-500); RBC Peritoneal Fluid < 2000 /uL (0-10000); Source Peritoneal Fluid Peritoneal Fluid
[2025-03-13 16:28] LABS: Troponin I 0.073 ng/mL (0.000-0.034)
[2025-03-13 16:41] LABS: Glucose Point of Care 153 mg/dl (65-105)
--- NOTE | 2025-03-13 17:33 | P.PNGI_ITS ---
Progress Note: A&P Assessment and Plan (1) Septic shock: Code(s): A41.9 - Sepsis, unspecified organism; R65.21 - Severe sepsis with septic shock Status: Acute Assessment and Plan: resolved, cultures no growth levophed discontinued (2) Cirrhosis: Code(s): K74.60 - Unspecified cirrhosis of liver Status: Acute Assessment and Plan: he is established with equal opportunity representative in STL s/p parecentesis, no SBP (liquid reviewed) on abx (3) Ascites: Code(s): R18.8 - Other ascites Status: Acute (4) Pneumonia: Code(s): J18.9 - Pneumonia, unspecified organism Status: Acute Assessment and Plan: on abx (5) Acute kidney injury: Code(s): N17.9 - Acute kidney failure, unspecified Status: Acute Assessment and Plan: improved Subjective Date/time seen: 03/13/25 17:33 Interval history: overall better but earlier had chest pain comfortable after had paracentesis BP better and levophed discontinued tolerating diet Review of Systems Review of Systems: All systems reviewed & are unremarkable except as noted in HPI and below Exam Narrative: General: Pleasant gentleman in no acute distress HEENT:? Pupils equal and reactive, sclera is clear, dry oral mucosa Neck:? Supple, right IJ in place Respiratory:? Decreased breath sounds bilaterally, no wheezing Cardiac:? S1-S2 normal, bradycardic Abdomen:? Soft, distended, hypoactive and distant bowel sounds, nontender, positive fluid thrill Extremities:? Bilateral lower extremity edema up to the thighs, faint palpable pedal pulses, Neuro:? Patient is awake, alert, oriented, nonfocal, answers to questions appropriately and follows simple commands Skin:? Right garrett wound from a ruptured blister noted, no surrounding erythema or purulent drainage Psych:? Normal mentation and affect Objective Data Vital Signs Vital Signs: Vital Signs - 24 hr 03/12/25 18:00 03/12/25 18:00 03/12/25 18:00 Temperature 97.6 F Pulse Rate 83 82 82 Respiratory Rate 14 Blood Pressure 95/66 L 95/66 L Pulse Oximetry 96 Oxygen Delivery Oxygen Flow Rate Fraction of Inspired Oxygen 03/12/25 20:00 03/12/25 20:00 03/12/25 20:00 Temperature 98.6 F Pulse Rate 82 88 88 Respiratory Rate 14 19 Blood Pressure 117/77 Pulse Oximetry 96 100 Oxygen Delivery Room Air Oxygen Flow Rate Fraction of Inspired Oxygen 21 03/12/25 20:00 03/12/25 20:05 03/12/25 20:09 Temperature Pulse Rate 88 89 90 Respiratory Rate 18 18 Blood Pressure 117/77 Pulse Oximetry 97 Oxygen Delivery Room Air Oxygen Flow Rate Fraction of Inspired Oxygen 03/12/25 20:16 03/12/25 21:00 03/12/25 22:00 Temperature Pulse Rate 92 85 91 Respiratory Rate 17 18 Blood Pressure 115/95 H Pulse Oximetry 97 Oxygen Delivery Oxygen Flow Rate Fraction of Inspired Oxygen 03/12/25 22:00 03/12/25 22:00 03/13/25 00:00 Temperature Pulse Rate 87 91 91 Respiratory Rate 16 16 Blood Pressure 120/69 110/72 Pulse Oximetry 100 100 Oxygen Delivery Room Air Oxygen Flow Rate Fraction of Inspired Oxygen 03/13/25 00:00 03/13/25 00:00 03/13/25 00:00 Temperature 98.3 F Pulse Rate 91 92 92 Respiratory Rate 20 Blood Pressure 113/67 113/67 Pulse Oximetry 100 Oxygen Delivery Oxygen Flow Rate Fraction of Inspired Oxygen 03/13/25 02:00 03/13/25 02:00 03/13/25 02:00 Temperature Pulse Rate 90 89 89 Respiratory Rate 16 Blood Pressure 100/69 100/69 Pulse Oximetry 97 Oxygen Delivery Oxygen Flow Rate Fraction of Inspired Oxygen 03/13/25 02:14 03/13/25 02:22 03/13/25 04:00 Temperature Pulse Rate 91 86 88 Respiratory Rate 16 14 Blood Pressure 109/67 Pulse Oximetry Oxygen Delivery Oxygen Flow Rate Fraction of Inspired Oxygen 03/13/25 04:00 03/13/25 04:00 03/13/25 04:00 Temperature 98.3 F Pulse Rate 75 75 75 Respiratory Rate 14 16 Blood Pressure 117/56 L Pulse Oximetry 97 97 Oxygen Delivery Room Air Oxygen Flow Rate Fraction of Inspired Oxygen 03/13/25 06:00 03/13/25 06:00 03/13/25 06:00 Temperature 98.3 F Pulse Rate 91 91 91 Respiratory Rate 16 Blood Pressure 135/81 138/81 Pulse Oximetry 99 Oxygen Delivery Oxygen Flow Rate Fraction of Inspired Oxygen 03/13/25 07:15 03/13/25 07:53 03/13/25 07:58 Temperature Pulse Rate 92 90 97 Respiratory Rate 20 18 22 H Blood Pressure 148/86 H 139/83 113/79 Pulse Oximetry 99 100 100 Oxygen Delivery Oxygen Flow Rate Fraction of Inspired Oxygen 03/13/25 08:00 03/13/25 08:00 03/13/25 08:00 Temperature Pulse Rate 92 93 Respiratory Rate Blood Pressure 109/72 Pulse Oximetry 100 Oxygen Delivery Nasal Cannula Oxygen Flow Rate 2 Fraction of Inspired Oxygen 03/13/25 08:00 03/13/25 08:05 03/13/25 08:21 Temperature 97.5 F L Pulse Rate 93 93 Respiratory Rate 20 18 Blood Pressure 109/72 105/74 Pulse Oximetry 96 95 100 Oxygen Delivery Nasal Cannula Oxygen Flow Rate 2 Fraction of Inspired Oxygen 03/13/25 08:21 03/13/25 08:29 03/13/25 08:39 Temperature Pulse Rate 91 88 93 Respiratory Rate 16 16 20 Blood Pressure 134/82 Pulse Oximetry 100 Oxygen Delivery Oxygen Flow Rate Fraction of Inspired Oxygen 03/13/25 09:30 03/13/25 09:45 03/13/25 10:00 Temperature Pulse Rate 95 93 93 Respiratory Rate 22 H 20 Blood Pressure 138/84 114/63 Pulse Oximetry 100 96 Oxygen Delivery Oxygen Flow Rate Fraction of Inspired Oxygen 03/13/25 10:00 03/13/25 12:00 03/13/25 12:00 Temperature 97.5 F L Pulse Rate 93 87 Respiratory Rate 18 18 Blood Pressure 134/87 135/75 Pulse Oximetry 100 100 99 Oxygen Delivery Nasal Cannula Oxygen Flow Rate 2 Fraction of Inspired Oxygen 03/13/25 12:00 03/13/25 14:00 03/13/25 14:00 Temperature Pulse Rate 84 85 85 Respiratory Rate 18 Blood Pressure 126/66 Pulse Oximetry 100 Oxygen Delivery Oxygen Flow Rate Fraction of Inspired Oxygen 03/13/25 14:08 03/13/25 14:08 03/13/25 14:21 Temperature Pulse Rate 86 88 Respiratory Rate 22 H 20 Blood Pressure Pulse Oximetry 100 Oxygen Delivery Nasal Cannula Oxygen Flow Rate 2 Fraction of Inspired Oxygen 03/13/25 15:55 03/13/25 16:00 03/13/25 16:00 Temperature 97.5 F L Pulse Rate 90 90 Respiratory Rate 18 Blood Pressure 137/81 Pulse Oximetry 98 99 Oxygen Delivery Room Air Oxygen Flow Rate Fraction of Inspired Oxygen Intake/Output Intake/Output: Intake & Output 03/10/25 03/11/25 03/12/25 03/13/25 23:59 23:59 23:59 23:59 Intake Total 4933.1 2000 Output Total 1300 7500 Balance 3633.1 -5500 Meds/Results Medications: Active Medications Generic Name Dose Route Start Last Admin Trade Name Freq PRN Reason Stop Dose Admin Hydrocodone Bitart/Acetaminophen 1 tab 03/12/25 16:45 03/13/25 07:16 Hydrocodone/Acetaminophen (*Crx) 5-325 Mg Tablet PO 1 tab Q6H PRN Administration Pain Rated 4-6 Albuterol/Ipratropium 3 ml 03/12/25 11:00 03/13/25 14:08 Ipratropium 0.5 Mg/Albuterol Sulfate 2.5 Mg Ampul.Neb 3 Ml INHALATION 3 ml Q6HRT HERNAN Administration Dextrose 12.5 gm 03/12/25 10:57 Dextrose 50% 25 Gm/50 Ml Syringe IV PUSH PRN PRN Hypoglycemia Protocol Enoxaparin Sodium 40 mg 03/13/25 09:00 03/13/25 08:07 Enoxaparin 40 Mg/0.4 Ml Syringe SUB-Q Not Given DAILY HERNAN Glucagon 1 mg 03/12/25 10:57 Glucagon For Inj 1 Mg Vial IM PRN PRN Hypoglycemia Protocol Glucose 15 gm 03/12/25 10:57 Glucose Oral Gel 15 Gm Of Glucse In 37.5 Gm Tube PO PRN PRN Hypoglycemia Protocol Metronidazole 500 mg in 100 mls @ 100 mls/hr 03/12/25 09:00 03/13/25 16:54 Flagyl 500 Mg/Iso Soln 100 Ml IVPB Infused Q8HR HERNAN Infusion Dextrose 1,000 mls @ 100 mls/hr 03/12/25 10:57 Dextrose 5% 1,000 Ml IVPB PRN PRN Hypoglycemia Protocol Cefepime HCl 2 gm in 50 mls @ 100 mls/hr 03/13/25 10:00 03/13/25 17:04 Maxipime 2 Gm/Ns 50 Ml IVPB 100 mls/hr Q8H HERANN Administration Insulin Aspart 3 - 6 units 03/13/25 17:00 03/13/25 16:54 Insulin Aspart (*Bkc) 100 Units/Ml SUB-Q Not Given TIDWM HERNAN Protocol Nitroglycerin 0.4 mg 03/13/25 07:39 03/13/25 09:36 Nitroglycerin Sl 0.4 Mg Tablet SUBLINGUAL 0.4 mg Q5MIN PRN Administration Chest Pain Pantoprazole Sodium 40 mg 03/12/25 21:00 03/13/25 07:59 Pantoprazole Sodium Iv 40 Mg Vial IV PUSH 40 mg Q12HR HERNAN Administration Sodium Chloride 10 ml 03/12/25 14:00 03/13/25 15:43 Central Line Flush IV PUSH 10 ml Q8HR HERNAN Administration Sodium Chloride 20 ml 03/12/25 10:37 Central Line Flush IV PUSH PRN PRN after blood draws Radiology Results: ITS Impressions Chest/Abdomen/Pelvis CT 03/12/25 07:15 IMPRESSION: 1. Lingular airspace disease, compatible with pneumonia. New nodular densities right upper lobe may also be infectious/inflammatory, although metastatic disease not excluded. 2: Stable 12 mm pleural-based right lower lobe nodule, likely benign. 3: Cirrhosis of the liver with moderate ascites. Head CT 03/12/25 14:35 IMPRESSION: No acute intracranial process. Chest X-Ray 03/13/25 06:11 Impression: Probable mild bibasilar pulmonary edema. Correlate clinically for pneumonia. Right IJ line. Paracentesis Ultrasound 03/13/25 15:28 IMPRESSION: 1. Successful ultrasound-guided paracentesis yielding 5000 mL of yellow fluid. Labs Labs: Laboratory Results - last 24 hr 03/12/25 03/12/25 03/12/25 05:44 17:31 23:57 WBC RBC Hgb Hct MCV MCH MCHC RDW Plt Count MPV Immature Gran % (Auto) Neut % (Auto) Lymph % (Auto) Meagher % (Auto) Eos % (Auto) Baso % (Auto) Lymph # (Auto) Meagher # (Auto) Eos # (Auto) Baso # (Auto) Abs Immat Gran (auto) Absolute Neuts (auto) Absolute Nucleated RBC Nucleated RBC % % Immature Plt Fraction Sodium Potassium Chloride Carbon Dioxide Anion Gap BUN Creatinine Estim Creat Clear Calc Estimated GFR Glucose POC Capillary Glucose 221 H 173 H Lactic Acid Calcium Phosphorus Magnesium Iron 103 TIBC 278 % Saturation 37 Ferritin 141.00 Total Bilirubin AST ALT Alkaline Phosphatase Ammonia Troponin I Total Protein Albumin Vitamin B12 Folate Peritoneal Source Peritoneal Color Peritoneal Appearance Peritoneal RBC Periton Nuc Cells Periton Neutrophils Periton Lymphocytes Peritoneal Monocytes Periton Macrophages 03/13/25 03/13/25 03/13/25 05:37 06:01 07:49 WBC 3.2 L RBC 2.31 L Hgb 7.4 L Hct 22.6 L MCV 97.8 MCH 32.0 MCHC 32.7 RDW 21.6 H Plt Count 76 L MPV 10.2 Immature Gran % (Auto) 0.6 H Neut % (Auto) 89.1 H Lymph % (Auto) 7.8 L Meagher % (Auto) 2.5 L Eos % (Auto) 0.0 Baso % (Auto) 0.0 L Lymph # (Auto) 0.25 L Meagher # (Auto) 0.1 Eos # (Auto) 0.0 Baso # (Auto) 0.0 Abs Immat Gran (auto) 0.02 Absolute Neuts (auto) 2.9 Absolute Nucleated RBC 0.000 Nucleated RBC % 0.0 % Immature Plt Fraction 2.0 Sodium 131 L Potassium 5.0 Chloride 102 Carbon Dioxide 22 Anion Gap 7 BUN 24 H Creatinine 1.06 Estim Creat Clear Calc 81 Estimated GFR > 60 Glucose 142 H POC Capillary Glucose 181 H Lactic Acid 2.3 H Calcium 7.6 L Phosphorus 3.7 Magnesium 2.4 H Iron TIBC % Saturation Ferritin Total Bilirubin 1.0 AST 39 ALT 39 Alkaline Phosphatase 126 Ammonia 10 Troponin I 0.014 Total Protein 6.0 L Albumin 2.9 L Vitamin B12 > 1000.0 H Folate 8.0 Peritoneal Source Peritoneal Color Peritoneal Appearance Peritoneal RBC Periton Nuc Cells Periton Neutrophils Periton Lymphocytes Peritoneal Monocytes Periton Macrophages 03/13/25 03/13/25 03/13/25 08:39 11:01 12:15 WBC RBC Hgb Hct MCV MCH MCHC RDW Plt Count MPV Immature Gran % (Auto) Neut % (Auto) Lymph % (Auto) Meagher % (Auto) Eos % (Auto) Baso % (Auto) Lymph # (Auto) Meagher # (Auto) Eos # (Auto) Baso # (Auto) Abs Immat Gran (auto) Absolute Neuts (auto) Absolute Nucleated RBC Nucleated RBC % % Immature Plt Fraction Sodium Potassium Chloride Carbon Dioxide Anion Gap BUN Creatinine Estim Creat Clear Calc Estimated GFR Glucose POC Capillary Glucose 165 H Lactic Acid 3.4 H Calcium Phosphorus Magnesium Iron TIBC % Saturation Ferritin Total Bilirubin AST ALT Alkaline Phosphatase Ammonia Troponin I 0.017 D Total Protein Albumin Vitamin B12 Folate Peritoneal Source Peritoneal Color Peritoneal Appearance Peritoneal RBC Periton Nuc Cells Periton Neutrophils Periton Lymphocytes Peritoneal Monocytes Periton Macrophages 03/13/25 03/13/25 03/13/25 15:00 15:42 16:36 WBC RBC Hgb Hct MCV MCH MCHC RDW Plt Count MPV Immature Gran % (Auto) Neut % (Auto) Lymph % (Auto) Meagher % (Auto) Eos % (Auto) Baso % (Auto) Lymph # (Auto) Meagher # (Auto) Eos # (Auto) Baso # (Auto) Abs Immat Gran (auto) Absolute Neuts (auto) Absolute Nucleated RBC Nucleated RBC % % Immature Plt Fraction Sodium Potassium Chloride Carbon Dioxide Anion Gap BUN Creatinine Estim Creat Clear Calc Estimated GFR Glucose POC Capillary Glucose 153 H Lactic Acid Calcium Phosphorus Magnesium Iron TIBC % Saturation Ferritin Total Bilirubin AST ALT Alkaline Phosphatase Ammonia Troponin I 0.073 H* D Total Protein Albumin Vitamin B12 Folate Peritoneal Source Peritoneal fluid Peritoneal Color Yellow Peritoneal Appearance Cloudy A Peritoneal RBC < 2000 Periton Nuc Cells 87 Periton Neutrophils 12 Periton Lymphocytes 14 Peritoneal Monocytes 6 Periton Macrophages 68
[2025-03-13] MEDS: busPIRone HCL 5 MG TABLET PO (20:15)
[2025-03-13 20:24] LABS: Glucose Point of Care 226 mg/dl (65-105)
[2025-03-14 00:30] VITALS: BP 136/76; PULSE 96; RESP 22; TEMP 36.7; O2SAT 96
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
[2025-03-17 19:04] LABS: LDH Peritoneal Fluid 6 U/L (<63)
[2025-03-18 18:03] LABS: Albumin Peritoneal Fluid 0.2 g/dL; Amylase Peritoneal Fluid <10 U/L; Glucose Peritoneal Fluid 169 mg/dL; Total Protein Peritoneal Fluid <3.0 g/dL
== END 2025-03-14 01:00 | disposition left against medical advice (07) | DRG 871 ==
LOC: ANHED 08:16 → ANHICU 08:32 → ANHIMU 03-13 17:42
PROVIDERS: Emergency Medicine; Internal Medicine; Nurse Practitioner; Admitting Provider Family Medicine; Emergency Provider Emergency Medicine; PCP Emergency Medicine; Visit Provider General Practice
DX: A41.9 Sepsis, unspecified organism (principal); J18.9 Pneumonia, unspecified organism; R65.21 Severe sepsis with septic shock; R18.8 Other ascites; N17.9 Acute kidney failure, unspecified; D61.818 Other pancytopenia; I42.9 Cardiomyopathy, unspecified; J44.0 Chronic obstructive pulmonary disease with (acute) lower respiratory infection; E11.9 Type 2 diabetes mellitus without complications; F31.9 Bipolar disorder, unspecified; F17.210 Nicotine dependence, cigarettes, uncomplicated; I25.10 Atherosclerotic heart disease of native coronary artery without angina pectoris; I10 Essential (primary) hypertension; K74.60 Unspecified cirrhosis of liver; M10.9 Gout, unspecified; R07.9 Chest pain, unspecified; Z79.02 Long term (current) use of antithrombotics/antiplatelets; Z79.4 Long term (current) use of insulin; Z95.5 Presence of coronary angioplasty implant and graft; Z88.0 Allergy status to penicillin
CPT/HCPCS: 36415; 36556; 36600; 49083; 70450; 71045; 71260; 74177; 80048; 80053; 80143; 80179; 80307; 81001; 82042; 82077; 82140; 82150; 82607; 82728; 82746; 82805; 82945; 82948; 83036; 83540; 83550; 83605; 83615; 83735; 84100; 84157; 84443; 84484; 85018; 85025; 85055; 85610; 85730; 86850; 86900; 86901; 87040; 87641; 88108; 88305; 89051; 93005; 94640; 96361; 96365; 96367; 96375; 99291; A9270; C1751; C8929; J0692; J0696; J1815; J1836; J2060; J2270; J2470; J2543; J2919; J3370; J7030; P9047; Q9957; Q9967

== ENCOUNTER 2025-03-15 00:48 | Inpatient (IN) | payer MEDICARE, SELFPAY ==
[2025-03-15] VITALS (19 sets, daily range): BP systolic 84–110; BP diastolic 58–70; PULSE 71–106; RESP 14–20; TEMP 36.4–37; O2SAT 95–100; BMI 35.2
--- NOTE | ~2025-03-15 | US_ITS ---
EXAMINATION: US paracentesis abd w/image DATE: 03/15/2025 09:36 INDICATION: Large volume ascites TECHNIQUE: The procedure and its risks and benefits were discussed with the patient. Potential risks discussed included bleeding and infection. The skin was prepped and draped in sterile fashion. 1% lid ocaine was used for local anesthesia. Under ultrasound guidance, a 5 Fr catheter with trochar was adv anced into the ascites in the left lower quadrant. Fluid was aspirated into vacuum bottles. The amer[place] ter was removed, and a dressing was applied. There were no immediate complications. FINDINGS: Ultrasound images demonstrate ascites and the catheter within the fluid. IMPRESSION: 1. Successful ultrasound-guided paracentesis yielding 5000 mL of pale cloudy yellow fluid. Reviewed, dictated and finalized at location A. IMPRESSION: 1. Successful ultrasound-guided paracentesis yielding 5000 mL of pale cloudy y ellow fluid.
--- NOTE | ~2025-03-15 | XR_ITS ---
Portable chest x-ray Comparison: 03/13/2025 Clinical History: Shortness of breath Findings: Lungs are clear, without focal consolidation or pleural effusion. Cardiomediastinal silho uette is stable. Bones and soft tissues are unremarkable. Impression: Clear lungs. Reviewed, dictated and finalized at location . Impression: Clear lungs.
--- NOTE | ~2025-03-15 | XR_ITS ---
EXAMINATION: XR chest 1V portable DATE: 03/16/2025 09:12 INDICATION: Pneumonia TECHNIQUE: frontal view of the chest was obtained. COMPARISON: Chest radiograph dated 03/15/2025 FINDINGS: Persistent mild elevation of the left hemidiaphragm. Mild opacities in the left mid and lower lung zo ne. Right lung remains clear. No pleural effusion or pneumothorax. Heart size is within normal limits for AP technique. Median sternotomy wires and mediastinal surgical clips are seen, likely from prior coronary artery bypass grafting. IMPRESSION: 1. Mild opacities in the left mid and lower lung zone which could represent atelectasis and/or pneumo mikayla. Reviewed, dictated and finalized at location A. IMPRESSION: 1. Mild opacities in the left mid and lower lung zone which could represent ate lectasis and/or pneumonia.
--- NOTE | ~2025-03-15 | US_ITS ---
EXAMINATION: US paracentesis abd w/image DATE: 03/18/2025 08:46 INDICATION: Ascites. TECHNIQUE: The procedure and its risks and benefits were discussed with the patient. Potential risks discussed included bleeding and infection. The skin was prepped and draped in sterile fashion. 1% lid ocaine was used for local anesthesia. Under ultrasound guidance, a 5 Fr catheter with trochar was adv anced into the ascites in the left lower quadrant. Fluid was aspirated into vacuum bottles. The amer[place] ter was removed, and a dressing was applied. There were no immediate complications. FINDINGS: Ultrasound images demonstrate ascites and the catheter within the fluid. IMPRESSION: 1. Successful ultrasound-guided paracentesis yielding 4100 mL of yellow fluid. Reviewed, dictated and finalized at location A.
--- NOTE | ~2025-03-15 | US_ITS ---
EXAM: ABDOMEN ULTRASOUND HISTORY: cirrhosis COMPARISON: 03/12/2025, CT examination of the abdomen and pelvis FINDINGS: LIVER: The liver demonstrates coarse echogenicity and is decreased in size. The portal vein is patent, demonstrating hepatopedal flow. The contour of the liver surface is nodular. Perihepatic ascites is noted. GALLBLADDER: No stones are identified within the gallbladder, which is otherwise unremarkable. BILE DUCTS: Common bile duct measures 3.5mm. PANCREAS: Limited evaluation of the pancreas secondary to overlying bowel gas IMPRESSION: Perihepatic ascites. Reviewed, dictated and finalized at location A. IMPRESSION: Perihepatic ascites.
--- NOTE | 2025-03-15 00:57 | ECG_ITS ---
Test Date: 2025-03-15 00:55:12 Measurements Intervals [place] Rate: 89 P: 55 NH: 249 QRS: -66 QRSD: 149 T: 118 QT: 387 QTc: 472 Interpretive Statements SINUS RHYTHM WITH FIRST DEGREE AV BLOCK LEFT AXIS DEVIATION LEFT BUNDLE BRANCH BLOCK BASELINE ARTIFACT- I, II, III, AVR, AVL, AVF, V1, V4-V6 ABNORMAL ECG Compared to ECG 03/13/2025 07:45:46 No significant changes Electronically Signed On 03-15-2025 07:49:14 CDT by Jabari Villaseñor D.O.
[2025-03-15 01:11] LABS: Eosinophils Percent Auto 0.5 % (0-4.4); Hematocrit 26.6 % (42.0-52.0); Hemoglobin 8.3 g/dL (14.0-18.0); Immature Granulocyte Absolute 0.01 K/mm3 (0.00-0.031); Immature Granulocyte Percent A 0.2 % (0-0.5); Immature Platelet Fraction Pct 3.3 % (0.9-11.2); Lymphocytes Absolute Auto 0.94 K/mm3 (0.9-3.2); Lymphocytes Percent Auto 23.3 % (18.3-44.2); Mean Corpuscular HGB Conc 31.2 g/dl (32-36); Mean Corpuscular Hemoglobin 32.5 pg (26-34); Mean Corpuscular Volume 104.3 fl (80-100); Mean Platelet Volume 11.8 fl (7.4-10.4); Monocytes Absolute Auto 0.6 K/mm3 (0.1-0.6); Monocytes Percent Auto 14.4 % (2.6-8.5); Neutrophils Absolute Auto 2.5 K/mm3 (1.3-6.7); Neutrophils Percent Auto 61.6 % (45.5-73.1); Platelet Count Result 68 k/mm3 (150-375); Red Blood Count 2.55 M/mm3 (4.6-6.20); Red Cell Distribution Width 22.5 % (11.5-14.5)
[2025-03-15 01:18] LABS: Alanine Aminotransferase 43 U/L (6-50); Albumin Level 3.1 g/dL (3.5-5.1); Alkaline Phosphatase 140 U/L (38-126); Anion Gap 8 mmol/L (4-12); Aspartate Amino Transferase 40 U/L (17-59); Bilirubin,Total 0.5 mg/dL (0.2-1.3); Blood Urea Nitrogen 41 mg/dL (9-20); Calcium 7.6 mg/dL (8.4-10.2); Carbon Dioxide 20 mmol/L (22-30); Chloride 105 mmol/L (98-107); Estimated CRCL calculation 75 ml/min; Estimated Glomerular Filt Rate > 60; Glucose 160 mg/dL (65-110); Potassium 5.2 mmol/L (3.4-5.0); Sodium 133 mmol/L (137-145)
[2025-03-15 01:22] LABS: INR 1.3; Partial Thromboplastin Time 31.4 Seconds (22.3-36.8); Prothrombin Time 16.4 Seconds (11.1-14.7)
[2025-03-15 01:23] LABS: Band Neutrophils Percent 0 % (0-6); Platelet Estimate Decreased (Adequate)
[2025-03-15 01:24] LABS: Hypochromasia 1+; Ovalocytes 1+; Schistocytes None Seen
[2025-03-15 01:29] LABS: Ammonia < 9 umol/L (9-30)
[2025-03-15 01:49] LABS: NT Pro B Type Natriuretic Pept 2780 pg/mL (19.9-100); Troponin I 0.142 ng/mL (0.000-0.034)
--- OUTSIDE RECORDS SUMMARY | 2025-03-15 01:51 | XMS_ITS | Clinical Summary ---
Author Organization [facility] Jaimeolga donnell [facility] Address [address] [address] Care Team Providers Care Sales Account Executive Name Role Phone Giuliano Isbell MD Primary Care Provider [phone] Allergies No known active allergies Medications aspirin [...] Meter) True Metrix Glucose Meter Active Insulin [place], Disposable, (TRUEplus Pen Needle) 31 gauge x [...] Description 08/08/2025 1:00 PM CDT Office Visit [facility] Oncology and Hematology [facility] [address] [facility] [address] [place] [address] Prem Yang MD [address] [facility] [address] [place] [address] Health Maintenance Due Date Last [...] AA) Screening 2019 INFLUENZA VACCINE (#1) 2024 , 09/12/2022, 08/21/2021, Additional history exists COVID-19 Vaccine (3 - 2023-2 5 season) 2024 03/14/2021, 02/23/2021 DIABETES HBA1C Q 6 MONTHS 12/22/20242023, 11/28/2022, 08/10/2019 DIABETES ANNUAL FOOT EXAM 06/21/2025 06/21/2024 ZOSTER VACCINE Completed 09/12/2022, 11/23, 09/03/2021 PNEUMOCOCCAL VACCINE 50+ YEARS Completed 1 12/13/2022, 10/03/2022, 08/21/2021, Additional history exists Insurance Care Teams Sales Account Executive Relationship Specialty Start Date End Date Giuliano Isbell MD [address] [place] [phone] PCP - General Family Practice 08/08/24
--- OUTSIDE RECORDS SUMMARY | 2025-03-15 01:51 | XMS_ITS | Clinical Summary ---
Author Organization [facility] Address [address] [place] [address] Care Team Providers Care Offal Roller Name Role Phone AnaEnmanuel DO Unavailable Cholo Mcmahon MD Primary Care Provider [phone] Source Comments [facility],non-owned Affiliates and Associated Physician Practices is amultiple site organization consisting of ambulatory clinics and hospital sitesin [place], [place], [place] and [place]. This disclosure is being madepursuant to the Care Everywhere program and may not contain all information available regarding this patient. Last updated 18.[facility] Allergies Active Allergy Reactions Criticality Noted Date [...] pen 2 Active ergocalciferol (DRISDOL) 1.25 MG (41963 UT) capsule Take 1 (one) capsule by mouth every 7 days Active Cholecalcifero l 25 MCG (1000 UT) Take 1 (one) tablet by mouth once daily Active ferrous sulfate 325 (65 FE) MG tablet Take 1 (one) tablet by mouth once daily Active Multiple Vitamins-Associate Merchant als (HM COMPLETE MEN PO) Active B [...] Tobacco use 09/16/2021 Hyperlipidemia 10/17/2020 Atherosclerosis of [place] co ronary artery of [place] heart with unstable angina pectoris 08/31/2019 Overview (07/25/2022): CAD (coronary artery disease) Added automatically from request for surgery [id number] Calculus of gallbladder without cholecystitis Chest pain [...] 01/26/1995 Immunizations Immunization Administration Dates Next Due IRIS.TV primary monoval ent 12+ yr 0.3mL Purple [...] on file Legal Sex Male 3:35 PM REJOINER Gender Identity Not on file Sexual Orientation Not on file Last Filed Vital Signs Vital Sign Reading Time Taken Comments Blood Pressure 145/97 11/28/2022 10:43 AM REJOINER Pulse 81 11/28/2022 10:43 AM REJOINER Temperature 36.3 C (97.4 F) 11/28/2022 10:43 AM REJOINER Respiratory Rate - - Oxygen Saturation 96% 11/28/2022 10: 43 AM REJOINER Inhaled Oxygen Concentration - - Weight 116.4 kg (256 lb 9.6 oz) 023 10:43 AM REJOINER Height 182.9 cm (6') 11/28/2022 10:43 AM REJOINER Body Mass Index 34.8 11/28/2022 10:43 AM REJOINER Plan of Treatment Health Maintenance Due Date [...] Comments HEMOGLOBIN A1C Routine 11/28/2022 12:30 PM REJOINER Neuropathy from Last 3 Months or Most Recently Relevant to Health Maintenance Results * (ABNORMAL) HEMOGLOBIN A1C (11/28/2022 12:30 PM REJOINER) Hemoglobin A1c 6.2(H) <=5.6 % 11/28/2022 3:11 PM REJOINER [facility] Estimated Average Glucose 131 mg/dL 11/28/2022 3:[address] [facility] Comment: HbA1c Interpretation: Normal : < 5.7% Pre-diabetes: 5.7-6.4% Diabetes: Equal to or greater than 6.5% Test results diagnostic of diabetes should be repeated for confirmation. Treatment target values recommended by ADA and other clinical organizations should be used to evaluate metabolic control in patients. Reference: [place] [employer], Standards of Care in Diabetes -2020 In patients 70 years and older consider HbA1c target range of 7.0-7.5% (Reference: Nghia Summers et al. JAMDA. 2012) The Sebia assay for the measurement of HbA1c is a National Glycohemoglobin Standardization Program (NGSP) certified method. Blood BLOOD SPECIMEN / Unknown Lab Venipuncture / Unknown 11/28/2022 12:30 PM REJOINER 11/28/2022 1:19 PM REJOINER Tarsha Fairchild MD LAB - CHEMISTRY ORDERABLES Final Result Performing Organization Address City/State/[facility] Co de Phone Number [facility] [address] [place] [address], [facility] [phone] from Last 3 Months or Most Recently Relevant to Health Maintenance Insurance MEDICAID - OUT OF STATE [facility] MANAGED MEDICARE ADV [facility] MANAGED MEDICARE ADV [place] [facility] MANAGED MEDICARE ADV [place] [facility] MANAGED MEDICARE ADV [place] [facility] MANAGED MEDICARE ADV [place] [facility] MANAGED MEDICARE ADV [place] [facility] MANAGED MEDICARE ADV Care Teams Offal Roller Relationship Specialty Start Date End Date Cholo Mcmahon MD [address] [place] [phone] PCP - General 08/14/21 Enmanuel Perez DO Orthopedic Surgery 01/25/13
--- OUTSIDE RECORDS SUMMARY | 2025-03-15 01:51 | XMS_ITS | Clinical Summary ---
Author Organization [facility] [address] Address [address] [place] [address] Care Team Providers Care Operations Recruiter Name Role Phone Giuliano Isbell MD Primary Care Provider [phone] Allergies No known active allergies Medications nitroglycerin [...] mouth 2 (two) times a day 05/18/20 Active lidocaine (LIDODERM) 5 % Place 1 patch on the skin every morning 05/18/20 Active furosemide (LASIX) 20 mg tablet Take 1 tablet (20 mg total) by mouth every morning 05/18/20 Active pen needle, diabetic 31 gauge x 1/4 needle Use to inject insulin twice daily 200 each 4 10/03/20 Active lancets 33 gauge misc Use to check blood sugar twice daily 200 each 4 10/03/20 Active blood glucose diagnostic strip Use to test blood glucose 2 times daily DX E11.65, Z79.4 200 strip 4 10/03/20 Active alcohol swabs pads, medicated Use to clean site where injecting insulin twice daily 200 each 4 10/03/20 Active blood-glucose meter misc Use to check [...] 4 hours PRN for sob as needed 08/05/20 23 2024 Discontinued(D uplicate order) magnesium oxide-Mg AA chelate [...] 12/21/2024 Assessment & Plan (12/21/2024 2:23 PM PROGRAMMING COORDINATOR): - Smoking cessation counseling and techniques reviewed at length - Avoid triggers and use distraction techniques - Information given regarding [place] [employer] Quit line: [phone]-YES for free services - 5 minutes spent [...] Lasix Assessment & Plan (01/02/2023 2:48 PM PROGRAMMING COORDINATOR): Diagnosed around 2016 On insulin since diagnosis Control : good [...] prescribed. 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 Congestive heart failure 09/16/2021 Assessment & Plan (12/21/2024 2:21 PM PROGRAMMING COORDINATOR): Continue aspirin, carvedilol, clopidogrel, Entresto, and furosemide I recommend close follow-up with Cardiology I will have staff request a recent echocardiogram Cardiomyopathy, ischemic 11/21/2019 Atherosclerosis of [place] co ronary artery of [place] tribe heart with unstable angina pectoris 08/31/2019 Overview (08/31/2019): Added automatically from request for surgery [id number] Calculus of gallbladder without cholecystitis Chest pain [...] 01/28/2018 Assessment & Plan (12/21/2024 2:18 PM PROGRAMMING COORDINATOR): He will restart Spiriva Respimat 2.5 two [...] tis Assessment & Plan (12/21/2024 2:20 PM PROGRAMMING COORDINATOR): He has been well-controlled on as needed therapy Elevate head of bed while sleeping Avoid trigger foods No eating 2-3 hours before bed Anxiety Encounters Date Type Department Care Team Description 5 Telephone [facility] Diabetes Endocrine Care at [address] [place] [phone] Ramya Francisco NP 5 Telephone [facility] Diabetes Endocrine Care at [address] [place] [address] Ramya Francisco, 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 5 SHOP/CHAP Initial Outreach [facility] OP CASE MANAGEMENT 1 [place] [address] Jazmin Durbin RN [address] [address] Sue Silveira [facility] 5 Telephone [facility] [address] [facility] [address] [place] [phone] Deborah Vizcarra 5 SHOP/CHAP Initial Outreach [facility] OP CASE MANAGEMENT 1 [place] [address] Jazmin Durbin RN 5 SHOP/CHAP Initial Outreach [facility] OP CASE MANAGEMENT 1 [place] [address] Jazmin Durbin RN 5 Telephone [facility] [address] [facility] [address] [place] [phone] Deborah Vizcarra 5 SHOP/CHAP Initial Eligibility Review [facility] OP CASE MANAGEMENT 1 [place] [address] Jazmin Durbin, ARIELLE 5 9:27 AM CDT - 5 10:12 AM CDT Surgery [facility] Digestive Disease [address] [phone] Abril Mcintyre MD ESOPHAGOGASTRODUODENOSCOPY 5 9:20 AM CDT Anesthesia Event [facility] [address] [phone] Victor M Jefferson MD 5 8:15 PM CDT - 5 3:59 PM CDT Hospital Encounter [address] [phone] Marc Vasquez MD PhD Ma, MD Kenn Morataya Tiffany M., MD Chenna, MD Pushpa Mayfield, MD Rosalino Meneses Alex Ryan, MD Abdominal pain, generalized (Primary Dx); Shortness of breath; Sepsis with acute organ dysfunction and septic shock, due to unspecified organism, unspecified organ dysfunction type (HCC); Pneumonia due to infectious organism, unspecified laterality, unspecified part of lung; Melena Discharge Disposition: Discharge to home or self care 5 Telephone [facility] G[facility]enterology Critical access hospital1 [facility] 12th [place] [address] [place] [phone] Cristela Macias CMA 5 Telephone [facility] Gastroenterology Critical access hospital1 [facility] Medicine 12th [place] [address] [place] [address] Ana Coughlin Schedule Ultrasound 5 11:30 AM PROGRAMMING COORDINATOR Office Visit [facility] Orthopaedic Surgery [address] [facility] 6th [place] [address] [place] [address] Aaron Gutierrez MD Bilateral carpal tunnel syndrome (Primary Dx) 5 1:00 PM PROGRAMMING COORDINATOR Office Visit [facility] Pulmonary at [address] [place] [address] Velia Alonso, FATOU Centrilobular emphysema (HCC) (Primary Dx); Chronic congestive heart failure, unspecified heart failure type (HCC); Gastroesophageal reflux disease without esophagitis; Cigarette nicotine dependence without complication 5 11:59 AM PROGRAMMING COORDINATOR Anesthesia Event [facility] Operating [facility] [address] [place] [address] Jose R Peter MD Heuvelman, Katherine Marie, NP 5 10:45 AM PROGRAMMING COORDINATOR - 5 11:15 AM PROGRAMMING COORDINATOR Surgery [facility] Operating [facility] ([facility]) [address] [place] [address] Aaron Gutierrez MD LEFT CARPAL TUNNEL RELEASE 5 9:46 AM PROGRAMMING COORDINATOR - 5 1:58 PM PROGRAMMING COORDINATOR Hospital Encounter [facility] Operating [facility] ([facility]) [address] [place] [address] Aaron Gutierrez MD Carpal tunnel syndrome of left wrist (Primary Dx) Discharge Disposition: Discharge to home or self care from Last 3 Months Immunizations Immunization Administration Dates Next Due Influenza, Quad, Adjuvantate d, Intramuscular 08/08/2023,09/12/2022 Influenza, Quadrivalent, Hig h Dose, Preservative Free, Intrr 08/21/2021,08/10/2020 Influenza, Quadrivalent, Spl it, Preservative Free, Intramuscular 09/30/2019,09/23/2018,10/29/2017 Influenza, Unspecified 10/15/2021 tidy SARS-CoV-2 Monovalent Vaccination (12+ Yrs) PURPLE 03/14/2021,02/23/2021 [...] drink = 0.6 oz pur e alcohol) [facility] Utilities Answer Date Recorded In the past 12 months has e [employer], gas, oil, or water company threatened to [...] week 03/01/2025 How often do you attend [facility] or mandaen services? Patient unable to answer 03/01/2025 Do you belong to any clubs o r organizations such as mandaen groups, unions, fraternal or athletic groups, or [...] Date Recorded PHQ-2 Total Score 0 03/01/2025 [facility] - Occupational Stress Questionnaire Answer Date Recorded [...] any time in the past 12 m [facility], were you homeless or living in a custodial (including now)? No 03/01/2025 Personal Safety Answer [...] on file Legal Sex Male 6:28 PM PROGRAMMING COORDINATOR Gender Identity Not on file Sexual Orientation [...] Additional history exists Hemoglobin A1C 08/22/2025 02/20/2025, 03/3 , 06/21/2024, Additional history exists Depression Screening 02/19/2026 02/19/2025 Lipid Panel 02/20/2026 02/20/2025, 08/0 07/2022, 06/12/2017 eGFR 03/01/2026 03/01/2025, 04/0 06/2025, 02/27/2025, Additional history exists Fall Risk Assessment 03/02/2026 03/02/2025 Abdominal Aortic Aneurysm (A AA) Screen Completed 03/20/2022 Zoster Vaccine Completed 09/12/2022, 11/23, 09/03/2021 Pneumococcal vaccine 65+ Completed 023, 10/03/2022, 08/21/2021, Additional history exists Hepatitis C Screening Completed 02/22/2025 , 02/20/2025, 07/13/2023 Medical Devices Implanted Type Area Concrete Gun Operator Device Identifier Shelf Expiration Date Model / Serial / Lot [employer] [id number] Angio-Seal Evolution 6fr .035in Guidewire Bypass Tube Suture - [id number] Implanted:Qty : 1 on 09/08/2019 by Shan Mcginnis MD at [facility] Other - see comments [employer] 04/22/2020 [id number] / / [id number] Cardiac Stent X4 Implanted:Qty : 4 N/A: [...] CHEMISTRIES, VENOUS Routine 02/21/2025 3:04 AM CDT [place] INSJ NON-TUNNELED CENTRAL VENOUS CATH AGE 5 YR/> Routine 02/21/2025 1:30 AM CDT Sepsis with acute organ dysfunction and septic shock, due to unspecified organism, unspecified organ dysfunction type (HCC) POC BLOOD GAS AND CHEMISTRIES, ARTERIAL Routine 02/21/2025 1:08 AM CDT [place] ARTL CATHJ/CANNULJ MNTR/TRANSFUSION SPX PRQ Routine 02/21/2025 [...] AUREUS) CULTURE Routine 02/21/2025 12:06 AM CDT [facility] CRITICAL CARE ILL/INJURED PATIENT INIT 30-74 MIN [...] ED Urgent/IP Urgent 02/19/2025 9:40 PM CDT [facility] CRITICAL CARE ILL/INJURED PATIENT INIT 30-74 MIN [...] POCT GLUCOSE DEVICE Routine 12/15/2024 12:46 PM PROGRAMMING COORDINATOR RELEASE CARPAL TUNNEL 12/15/2024 11:58 AM PROGRAMMING COORDINATOR Left carpal tunnel syndrome Case Notes 12/14 - Per Dr Gutierrez, change cut to close to 5 minutes. NB10/@0709: Sent case msg to [facility] about pt not having transportion to surgery yesterday/case is now marked, No not ready to schedule. SR 04/19@7026 Case message to [facility] - case to be rescheduled as patient didn't have transportation CF04/12@0945 Per Dania Rehman per case message, this case fourth CF04/15@0146 Per [facility], I am confirming the surgery date is 04/14/24.thank you. CF04/15@4652 Confirm Surgery Date - Call to [facility] to confirm the surgery date, left voicemail CF11/09 @ 1613 Case message to [facility], case marked No, not ready to schedule CF11/12 @ 1753 Per [facility] via case message, line up for rooms G & H CF POCT GLUCOSE DEVICE Routine 12/15/2024 10:[address] CHEST WO CONTRAST F/U RUBI G SCREEN PROTOCOL Schedule Routine, Read Routine (OP Routine) 11/12/2022 4:29 PM PROGRAMMING COORDINATOR Lung nodule ALBUMIN CREATININE RATIO, URINE Routine [...] MD LAB BLOOD ORDERABLES Final Res ult [facility] [place] [address] * (ABNORMAL) POCT glucose (03/02/2025 11:24 AM CDT) Glucose, POC 258(H) 70 - 199 mg/dL Blood 03/02/2025 11:2 4 AM CDT 03/02/2025 11:24 AM CDT Eagle Jerry MD LAB POCT ORDERABLES - DEVICE F inal Result Performing Organization Address City/[facility]/ZIP Co de Phone Number [facility] [place] [address] * POCT glucose (03/02/2025 7:40 AM CDT) Glucose, POC 108 70 - 199 mg/dL Blood 03/02/2025 7:40 AM CDT 03/02/2025 7:40 AM CDT Eagle Jerry MD LAB POCT ORDERABLES - DEVICE F inal Result Performing Organization Address City/[facility]/ZIP Co de Phone Number [facility] [place] [address] * (ABNORMAL) Potassium, whole blood (03/01/2025 10:11 PM CDT) Pathologist [facility] Potassium, bld 5.3(H) 3.3 - 4.9 mmol/L Blood 03/01/2025 10:1 1 PM CDT 03/01/2025 10:18 PM CDT Eagle Jerry MD LAB BLOOD ORDERABLES Final Res ult Performing Organization Address [facility] Co de Phone Number [facility] [place] [address] * eGFR (03/01/2025 8:13 PM CDT) eGFR 77 >=60 mL/min/1. 73 m2 Comment: [...] MD LAB BLOOD ORDERABLES Final Res ult [facility] [place] [address] * Differential, auto (03/01/2025 8:13 PM CDT) Neutrophil abs 4.58 1.50 - 6.50 K/cumm Imm gran abs 0.03 0.00 - 0.10 K/cumm [facility] Lymphocyte abs 1.69 0.80 - 3.30 K/cumm [facility] Monocyte abs 0.61 0.20 - 0.80 K/cumm [facility] Eosinophil abs 0.15 0.00 - 0.50 K/cumm [facility] Basophil abs 0.00 0.00 - 0.10 K/cumm [facility] Neutrophil pct 65.0 % [facility] Comment: Interpretive Data Percent cell count reference ranges are not reported, since discordance with absolute values may lead to misinterpretation of CBC data. Current Interpretive Data was last revised on 2018. Imm gran pct 0.4 % [facility] Comment: Interpretive Data Percent cell count reference ranges are not reported, since discordance with absolute values may lead to misinterpretation of CBC data. Current Interpretive Data was last revised on 2018. Lymphocyte pct 23.9 % [facility] Comment: Interpretive Data Percent cell count reference ranges are not reported, since discordance with absolute values may lead to misinterpretation of CBC data. Current Interpretive Data was last revised on 2018. Monocyte pct 8.6 % [facility] Comment: Interpretive Data Percent cell count reference ranges are not reported, since discordance with absolute values may lead to misinterpretation of CBC data. Current Interpretive Data was last revised on 2018. Eosinophil pct 2.1 % [facility] Comment: Interpretive Data Percent cell count reference ranges are not reported, since discordance with absolute values may lead to misinterpretation of CBC data. Current Interpretive Data was last revised on 2018. Basophil pct 0.0 % [facility] Comment: Interpretive Data Percent cell count reference ranges are not reported, since discordance with absolute values may lead to misinterpretation of CBC data. Current Interpretive Data was last revised on 2018. Blood 03/01/2025 8:13 PM CDT 03/01/2025 8:30 PM CDT us Eagle Jerry MD LAB BLOOD ORDERABLES Final Res ult [facility] [place] [address] * (ABNORMAL) CBC with auto differential (03/01/2025 8:13 PM CDT) WBC 7.06 3.80 - 9.90 K/cumm Hgb 7.4(L) 13.0 - 17.5 g/dL [facility] Hct 22.5(L) 38.9 - 50.3 % [facility] Plt 174 150 - 400 K/cumm [facility] MPV 11.5 9.1 - 12.3 fL [facility] RBC 2.41(L) 4.30 - 5.80 M/cumm [facility] MCV 93.4 81.3 - 96.4 fL [facility] MCH 30.7 27.1 - 33.3 pg [facility] MCHC 32.9 32.3 - 35.7 g/dL [facility] RDW CV 16.8(H) 11.1 - 14.9 % [facility] RDW SD 56.1(H) 35.7 - 48.1 fL [facility] NRBC abs 0.03(H) 0.00 - 0.01 K/cumm [facility] Blood 03/01/2025 8:13 PM CDT 03/01/2025 8:30 PM CDT us Eagle Jerry MD LAB BLOOD ORDERABLES Final Res ult [facility] [place] [address] * (ABNORMAL) Comprehensive metabolic panel (03/01/2025 8:13 PM CDT) Sodium 135 135 - 145 mmol/L Potassium, pl 5.4(H) 3.3 - 4.9 mmol/L [facility] Chloride 103 97 - 110 mmol/L [facility] CO2 28 22 - 32 mmol/L [facility] Anion gap 4 2 - 15 mmol/L [facility] BUN 40(H) 6 - 25 mg/dL [facility] Creatinine 1.04 0.80 - 1.30 mg/dL [facility] Glucose 124 70 - 199 mg/dL [facility] Comment: Interpretive Data Fasting [...] 2022. Calcium 8.0(L) 8.5 - 10.3 mg/dL [facility] Bilirubin, total 0.6 0.1 - 1.2 mg/dL [facility] Protein, pl 6.5 6.5 - 8.5 g/dL [facility] Albumin 2.7(L) 3.5 - 5.0 g/dL [facility] Alk phos 107 40 - 130 Units/L [facility] ALT 59(H) 7 - 55 Units/L [facility] AST 52(H) 10 - 50 Units/L [facility] Blood 03/01/2025 8:13 PM CDT 03/01/2025 8:30 PM CDT Eagle Jerry MD LAB BLOOD ORDERABLES Final Res ult Performing Organization Address [facility] Co de Phone Number [facility] [place] [address] * POCT glucose (03/01/2025 7:41 PM CDT) Glucose, POC 103 70 - 199 mg/dL Blood 03/01/2025 7:41 PM CDT 03/01/2025 7:41 PM CDT Eagle Jerry MD LAB POCT ORDERABLES - DEVICE F inal Result Performing Organization Address [facility] de Phone Number [facility] [place] [address] * POCT glucose (03/01/2025 4:13 PM CDT) Glucose, POC 140 70 - 199 mg/dL Blood 03/01/2025 4:13 PM CDT 03/01/2025 4:13 PM CDT Eagle Jerry MD LAB POCT ORDERABLES - DEVICE F inal Result Performing Organization Address [facility] de Phone Number [facility] [place] [address] * (ABNORMAL) POCT glucose (03/01/2025 11:30 AM CDT) Glucose, POC 243(H) 70 - 199 mg/dL Blood 03/01/2025 11:3 0 AM CDT 03/01/2025 11:30 AM CDT Eagle Jerry MD LAB POCT ORDERABLES - DEVICE F inal Result Performing Organization Address City/[facility] Co de Phone Number [facility] [place] [address] * POCT glucose (03/01/2025 7:49 AM CDT) [facility] Glucose, POC 105 70 - 199 mg/dL Blood 03/01/2025 7:49 AM CDT 03/01/2025 7:49 AM CDT Eagle Jerry MD LAB POCT ORDERABLES - DEVICE F inal Result Performing Organization Address [facility] de Phone Number [facility] [place] [address] * (ABNORMAL) CBC without differential (03/01/2025 6:30 AM CDT) [facility] WBC 6.61 3.80 - 9.90 K/cumm Hgb 8.1(L) 13.0 - 17.5 g/dL [facility] Hct 24.5(L) 38.9 - 50.3 % [facility] Plt 174 150 - 400 K/cumm [facility] MPV 11.4 9.1 - 12.3 fL [facility] RBC 2.62(L) 4.30 - 5.80 M/cumm [facility] MCV 93.5 81.3 - 96.4 fL [facility] MCH 30.9 27.1 - 33.3 pg [facility] MCHC 33.1 32.3 - 35.7 g/dL [facility] RDW CV 16.7(H) 11.1 - 14.9 % [facility] RDW SD 55.9(H) 35.7 - 48.1 fL [facility] NRBC abs 0.00 0.00 - 0.01 K/cumm [facility] Blood 03/01/2025 6:30 AM CDT 03/01/2025 6:44 AM CDT Eagle Jerry MD LAB BLOOD ORDERABLES Final Res ult Performing Organization Address [facility] Co de Phone Number [facility] [place] [address] * (ABNORMAL) POCT glucose (02/28/2025 8:40 PM CDT) Glucose, POC 228(H) 70 - 199 mg/dL Blood 02/28/2025 8:40 PM CDT 02/28/2025 8:40 PM CDT Eagle Jerry MD LAB POCT ORDERABLES - DEVICE F inal Result [facility] [place] [address] * POCT glucose (02/28/2025 5:17 PM CDT) Glucose, POC 166 70 - 199 mg/dL Blood 02/28/2025 5:17 PM CDT 02/28/2025 5:17 PM CDT Eagle Jerry MD LAB POCT ORDERABLES - DEVICE F inal Result Performing Organization Address City/[facility] [place] [address] * eGFR (02/28/2025 4:12 PM CDT) eGFR [...] ORDERABLES Final Res ult Performing Organization Address City/[facility]/ZIP Co de Phone Number [facility] [place] [address] * (ABNORMAL) CBC without differential (02/28/2025 4:12 PM CDT) WBC 8.22 3.80 - 9.90 K/cumm Hgb 7.7(L) 13.0 - 17.5 g/dL [facility] Hct 23.3(L) 38.9 - 50.3 % [facility] Plt 167 150 - 400 K/cumm [facility] MPV 11.6 9.1 - 12.3 fL [facility] RBC 2.45(L) 4.30 - 5.80 M/cumm [facility] MCV 95.1 81.3 - 96.4 fL [facility] MCH 31.4 27.1 - 33.3 pg [facility] MCHC 33.0 32.3 - 35.7 g/dL [facility] RDW CV 16.8(H) 11.1 - 14.9 % [facility] RDW SD 57.2(H) 35.7 - 48.1 fL [facility] NRBC abs 0.03(H) 0.00 - 0.01 K/cumm [facility] Blood 02/28/2025 4:12 PM CDT 02/28/2025 4:32 PM CDT us Eagle Jerry MD LAB BLOOD ORDERABLES Final Res ult Performing Organization Address [facility]/ZIP Co de Phone Number [facility] [place] [address] * (ABNORMAL) Comprehensive metabolic panel (02/28/2025 4:12 PM CDT) Sodium 132(L) 135 - 145 mmol/L Potassium, pl 5.1(H) 3.3 - 4.9 mmol/L [facility] Chloride 99 97 - 110 mmol/L [facility] CO2 26 22 - 32 mmol/L [facility] Anion gap 7 2 - 15 mmol/L [facility] BUN 44(H) 6 - 25 mg/dL [facility] Creatinine 0.94 0.80 - 1.30 mg/dL [facility] Glucose 168 70 - 199 mg/dL [facility] Comment: Interpretive Data Fasting [...] 2022. Calcium 7.6(L) 8.5 - 10.3 mg/dL [facility] Bilirubin, total 0.6 0.1 - 1.2 mg/dL [facility] Protein, pl 6.6 6.5 - 8.5 g/dL [facility] Albumin 2.7(L) 3.5 - 5.0 g/dL [facility] Alk phos 99 40 - 130 Units/L [facility] ALT 60(H) 7 - 55 Units/L [facility] AST 60(H) 10 - 50 Units/L [facility] Blood 02/28/2025 4:12 PM CDT 02/28/2025 4:34 PM CDT us Eagle Jerry MD LAB BLOOD ORDERABLES Final Res ult [facility] [place] [address] * POCT glucose (02/28/2025 11:31 AM CDT) Glucose, POC 161 70 - 199 mg/dL Blood 02/28/2025 11:3 1 AM CDT 02/28/2025 11:31 AM CDT us Eagle Jerry MD LAB POCT ORDERABLES - DEVICE F inal Result [facility] [place] [address] * EGD (02/28/2025 9:24 AM CDT) Anatomical Region Laterality Modality Other Narrative Procedure Note Abril Paz MD - 02/28/2025 9:24 AM CDT DIGESTIVE DISEASE [facility] Patient Name: Jud Campos Procedure Date: 02/28/2025 9:24 AM Date of : 1955 Admit Type: Inpatient Age: 70 Gender: Male Attending MD: Apple Salazar Room: [facility] ENDOSCOPY Note Status: Finalized Procedure: Upper GI endoscopy Indications: Suspected upper gastrointestinal bleeding Referring MD: Eagle Jerry M.D. Providers: Abril Paz M.D., Eagle Batres M.D. Comorbidities COPD, CAD s/p CABG 2017, HFrEF 35%, cirrhosis, hypertension. Medicines: Monitored Anesthesia Care Complications: No immediate complications. Estimated Blood Loss: Estimated blood loss: none. Procedure: Pre-Anesthesia Assessment: - [place] Protocol: - Pre-procedure Verification: Prior to theprocedure, [...] the physician, the nurse, the anesthesiologist, the data management engineer and the master sonar technician in the endoscopysuite. - Prior to [...] passed under direct vision. The GIF [id number] endoscope was introduced through the mouth, and [...] 7:41 AM CDT 02/28/2025 7:41 AM CDT us Eagle Jerry MD LAB POCT ORDERABLES - DEVICE F inal Result [facility] [place] [address] * eGFR (02/27/2025 9:39 PM CDT) eGFR [...] MD LAB BLOOD ORDERABLES Final Res ult [facility] [place] [address] * (ABNORMAL) Protime-INR (02/27/2025 9:39 PM CDT) PT 16.0(H) 9.7 - 13.0 sec INR 1.47(H) 0.90 - 1.20 [facility] Comment: Interpretive data Oral anticoagulant therapeutic ranges: Venous thromboembolism prophylaxis or treatment: 2.0-3.0 CARDIOLOGY Standard range: 2.0-3.0 High-intensity range: 2.5-3.5 Refer to indication-specific guidelines for appropriate target ranges for prosthetic heart valve replacement. Current interpretive data was last revised on 2019. Blood 02/27/2025 9:39 PM CDT 02/27/2025 11:32 PM CDT us Eagle Jerry MD LAB BLOOD ORDERABLES Final Res ult Performing Organization Address [facility]/ZIP Co de Phone Number [facility] [place] [address] * (ABNORMAL) CBC without differential (02/27/2025 9:39 PM CDT) WBC 9.62 3.80 - 9.90 K/cumm Hgb 7.2(L) 13.0 - 17.5 g/dL [facility] Hct 21.2(L) 38.9 - 50.3 % [facility] Plt 94(L) 150 - 400 K/cumm [facility] MPV 12.7(H) 9.1 - 12.3 fL [facility] RBC 2.28(L) 4.30 - 5.80 M/cumm [facility] MCV 93.0 81.3 - 96.4 fL [facility] MCH 31.6 27.1 - 33.3 pg [facility] MCHC 34.0 32.3 - 35.7 g/dL [facility] RDW CV 16.8(H) 11.1 - 14.9 % [facility] RDW SD 55.5(H) 35.7 - 48.1 fL [facility] NRBC abs 0.02(H) 0.00 - 0.01 K/cumm [facility] Blood 02/27/2025 9:39 PM CDT 02/27/2025 11:32 PM CDT us Abril Paz MD LAB BLOOD ORDERABL ES Final Result Performing Organization Address [facility]/ZIP Co de Phone Number [facility] [place] [address] * (ABNORMAL) Magnesium (02/27/2025 9:39 PM CDT) Magnesium 2.6(H) 1.4 - 2.5 mg/dL Blood 02/27/2025 9:39 PM CDT 02/27/2025 11:33 PM CDT Abril Paz MD LAB BLOOD ORDERABL ES Final Result [facility] [place] [address] * (ABNORMAL) Comprehensive metabolic panel (02/27/2025 9:39 PM CDT) Pathologist [facility] Sodium 135 135 - 145 mmol/L Potassium, pl 4.7 3.3 - 4.9 mmol/L [facility] Chloride 101 97 - 110 mmol/L [facility] CO2 26 22 - 32 mmol/L [facility] Anion gap 8 2 - 15 mmol/L [facility] BUN 48(H) 6 - 25 mg/dL [facility] Creatinine 0.91 0.80 - 1.30 mg/dL [facility] Glucose 121 70 - 199 mg/dL [facility] Comment: Interpretive Data Fasting [...] 2022. Calcium 7.5(L) 8.5 - 10.3 mg/dL [facility] Bilirubin, total 0.6 0.1 - 1.2 mg/dL [facility] Protein, pl 6.3(L) 6.5 - 8.5 g/dL [facility] Albumin 2.8(L) 3.5 - 5.0 g/dL [facility] Alk phos 93 40 - 130 Units/L [facility] ALT 59(H) 7 - 55 Units/L [facility] AST 52(H) 10 - 50 Units/L [facility] Blood 02/27/2025 9:39 PM CDT 02/27/2025 11:33 PM CDT Abril Paz MD LAB BLOOD ORDERABL ES Final Result Performing Organization Address [facility] Co de Phone Number [facility] [place] [employer] [place] [address] * POCT glucose (02/27/2025 8:55 PM CDT) Glucose, POC 179 70 - 199 mg/dL Blood 02/27/2025 8:55 PM CDT 02/27/2025 8:55 PM CDT Eagle Jerry MD LAB POCT ORDERABLES - DEVICE F inal Result Performing Organization Address [facility] de Phone Number [facility] [place] [address] * (ABNORMAL) POCT glucose (02/27/2025 4:24 PM CDT) Glucose, POC 251(H) 70 - 199 mg/dL Blood 02/27/2025 4:24 PM CDT 02/27/2025 4:24 PM CDT Eagle Jerry MD LAB POCT ORDERABLES - DEVICE F inal Result Performing Organization Address [facility] de Phone Number [facility] [place] [address] * (ABNORMAL) Hemoglobin and hematocrit (02/27/2025 3:01 PM CDT) Hgb 7.7(L) 13.0 - 17.5 g/dL Hct 22.8(L) 38.9 - 50.3 % [facility] Blood 02/27/2025 3:01 PM CDT 02/27/2025 3:26 PM CDT Eagle Jerry MD LAB BLOOD ORDERABLES Final Res ult [facility] [place] [address] * XR Chest 1 View (02/27/2025 1:19 [...] it. Electronically signed by: Lynda Romano M.D. us Eagle Jerry MD IMG XR PROCEDURES Final Result * (ABNORMAL) POCT glucose (02/27/2025 12:18 PM CDT) Glucose, POC 201(H) 70 - 199 mg/dL Blood 02/27/2025 12:1 8 PM CDT 02/27/2025 12:18 PM CDT Eagle Jerry MD LAB POCT ORDERABLES - DEVICE F inal Result Performing Organization Address [facility] de Phone Number [facility] [place] [address] * Type and screen (02/27/2025 10:38 AM CDT) Kp, indirect Negative ABO Rh A Positive [facility] Blood 02/27/2025 10:3 8 AM CDT 02/27/2025 10:56 AM CDT Narrative [facility] - 02/27/2025 11:47 AM CDT Has the patient had Daratumumab or Isatuximab in the past 6 months?->Unknown Eagle Jerry MD LAB BLOOD BANK TEST ORDERABLES Final Result Performing Organization Address [facility] de Phone Number [facility] [place] [address] * POCT glucose (02/27/2025 7:55 AM CDT) Glucose, POC 184 70 - 199 mg/dL Blood 02/27/2025 7:55 AM CDT 02/27/2025 7:55 AM CDT Eagle Jerry MD LAB POCT ORDERABLES - DEVICE F inal Result [facility] [place] [address] * eGFR (02/27/2025 12:26 AM CDT) Pathologist [facility] eGFR 83 >=60 mL/min/1. 73 m2 Comment: [...] MD LAB BLOOD ORDERABLES Asya ma Result [facility] [place] [address] * (ABNORMAL) CBC without differential (02/27/2025 12:26 AM CDT) Pathologist [facility] WBC 8.13 3.80 - 9.90 K/cumm Hgb 7.0(L) 13.0 - 17.5 g/dL [facility] Hct 20.7(L) 38.9 - 50.3 % [facility] Plt 110(L) 150 - 400 K/cumm [facility] MPV 11.9 9.1 - 12.3 fL [facility] RBC 2.23(L) 4.30 - 5.80 M/cumm [facility] MCV 92.8 81.3 - 96.4 fL [facility] MCH 31.4 27.1 - 33.3 pg [facility] MCHC 33.8 32.3 - 35.7 g/dL [facility] RDW CV 16.5(H) 11.1 - 14.9 % [facility] RDW SD 54.7(H) 35.7 - 48.1 fL [facility] NRBC abs 0.02(H) 0.00 - 0.01 K/cumm [facility] Blood 02/27/2025 12:2 6 AM CDT 02/27/2025 12:36 AM CDT us Nolan Barrow MD LAB BLOOD ORDERABLES Asya l Result Performing Organization Address [facility] Co de Phone Number [facility] [place] [address] * (ABNORMAL) Magnesium (02/27/2025 12:26 AM CDT) Pathologist [facility] Magnesium 2.6(H) 1.4 - 2.5 mg/dL Blood 02/27/2025 12:2 6 AM CDT 02/27/2025 12:36 AM CDT us Abril Paz MD LAB BLOOD ORDERABL ES Final Result Performing Organization Address City/[facility] Co de Phone Number [facility] [place] [address] * (ABNORMAL) Comprehensive metabolic panel (02/27/2025 12:26 AM CDT) Pathologist [facility] Sodium 133(L) 135 - 145 mmol/L Potassium, pl 4.6 3.3 - 4.9 mmol/L [facility] Chloride 100 97 - 110 mmol/L [facility] CO2 27 22 - 32 mmol/L [facility] Anion gap 6 2 - 15 mmol/L [facility] BUN 61(H) 6 - 25 mg/dL [facility] Creatinine 0.97 0.80 - 1.30 mg/dL [facility] Glucose 182 70 - 199 mg/dL [facility] Comment: Interpretive Data Fasting [...] 2022. Calcium 7.5(L) 8.5 - 10.3 mg/dL [facility] Bilirubin, total 0.5 0.1 - 1.2 mg/dL [facility] Protein, pl 5.9(L) 6.5 - 8.5 g/dL [facility] Albumin 2.8(L) 3.5 - 5.0 g/dL [facility] Alk phos 84 40 - 130 Units/L [facility] ALT 60(H) 7 - 55 Units/L [facility] AST 54(H) 10 - 50 Units/L [facility] Blood 02/27/2025 12:2 6 AM CDT 02/27/2025 12:36 AM CDT us Nolan Barrow MD LAB BLOOD ORDERABLES Asya l Result [facility] [place] [address] * POCT glucose (02/26/2025 8:32 PM CDT) [facility] Glucose, POC 180 70 - 199 mg/dL Blood 02/26/2025 8:32 PM CDT 02/26/2025 8:32 PM CDT us Eagle Jerry MD LAB POCT ORDERABLES - DEVICE F inal Result Performing Organization Address [facility] Co de Phone Number [facility] [place] [address] * POCT glucose (02/26/2025 5:01 PM CDT) Glucose, POC 143 70 - 199 mg/dL Blood 02/26/2025 5:01 PM CDT 02/26/2025 5:01 PM CDT Eagle Jerry MD LAB POCT ORDERABLES - DEVICE F inal Result Performing Organization Address [facility] de Phone Number [facility] [place] [address] * (ABNORMAL) POCT glucose (02/26/2025 11:27 AM CDT) Glucose, POC 279(H) 70 - 199 mg/dL Blood 02/26/2025 11:2 7 AM CDT 02/26/2025 11:27 AM CDT Eagle Jerry MD LAB POCT ORDERABLES - DEVICE F inal Result Performing Organization Address [facility] de Phone Number [facility] [place] [address] * POCT glucose (02/26/2025 7:44 AM CDT) Glucose, POC 143 70 - 199 mg/dL Blood 02/26/2025 7:44 AM CDT 02/26/2025 7:44 AM CDT Nolan Barrow MD LAB POCT ORDERABLES - DEV ICE Final Result Performing Organization Address [facility] Co de Phone Number [facility] [place] [address] * eGFR (02/26/2025 6:53 AM CDT) eGFR [...] ORDERABLES F inal Result Performing Organization Address [facility]/ZIP Co de Phone Number [facility] [place] [address] * (ABNORMAL) Magnesium (02/26/2025 6:53 AM CDT) Magnesium 2.8(H) 1.4 - 2.5 mg/dL Blood 02/26/2025 6:53 AM CDT 02/26/2025 6:58 AM CDT Emelia Hunter MD LAB BLOOD ORDERABLES F inal Result Performing Organization Address [facility]/ZIP Co de Phone Number [facility] [place] [address] * (ABNORMAL) Basic metabolic panel (02/26/2025 6:53 AM CDT) Sodium 133(L) 135 - 145 mmol/L Potassium, pl 4.9 3.3 - 4.9 mmol/L [facility] Chloride 98 97 - 110 mmol/L [facility] CO2 29 22 - 32 mmol/L [facility] Anion gap 6 2 - 15 mmol/L [facility] BUN 66(H) 6 - 25 mg/dL [facility] Creatinine 1.05 0.80 - 1.30 mg/dL [facility] Glucose 147 70 - 199 mg/dL [facility] Comment: Interpretive Data Fasting [...] 2022. Calcium 7.9(L) 8.5 - 10.3 mg/dL [facility] Blood 02/26/2025 6:53 AM CDT 02/26/2025 6:58 AM CDT us Emelia Hunter MD LAB BLOOD ORDERABLES F inal Result [facility] Department [place] [address] * POCT glucose (02/25/2025 7:58 PM CDT) Glucose, POC 154 70 - 199 mg/dL Blood 02/25/2025 7:58 PM CDT 02/25/2025 7:58 PM CDT us Nolan Barrow MD LAB POCT ORDERABLES - DEV ICE Final Result [facility] [place] [address] * POCT glucose (02/25/2025 4:26 PM CDT) Glucose, POC 166 70 - 199 mg/dL Blood 02/25/2025 4:26 PM CDT 02/25/2025 4:26 PM CDT Nolan Barrow MD LAB POCT ORDERABLES - DEV ICE Final Result Performing Organization Address [facility] Co de Phone Number [facility] [place] [address] * Infection Prevention Roberto auris PCR, surveillance Axilla/Groin (02/25/2025 12:40 PM CDT) [facility] Roberto auris DNA Not Detected Not Detected [facility] Comment: Interpretive Data Testing performed by [facility] Infectious Disease [facility] using the Baltazar lakeshia 6800 Roberto auris assay. This assay detects DNA from Roberto auris using Real-Time PCR. This assay is laboratory developed and is not cleared by the [facility] Food and Drug Administration. The performance characteristics have been verified by the [facility] Infectious Disease [facility]. Axilla/Groin 02/25/2025 12:4 0 PM CDT 02/25/2025 1:04 PM CDT Narrative [facility] - 02/26/2025 1:42 PM CDT Order placed by [facility] due to ring surveillance. Instant Order Generic Provider LAB MICROBIOLOGY - GENERAL ORDERABLES Final Result Performing Organization Address [facility] Co de Phone Number [facility] [place] [address] [facility] * (ABNORMAL) POCT glucose (02/25/2025 11:16 AM CDT) Glucose, POC 204(H) 70 - 199 mg/dL Blood 02/25/2025 11:1 6 AM CDT 02/25/2025 11:16 AM CDT Nolan Barrow MD LAB POCT ORDERABLES - DEV ICE Final Result Performing Organization Address [facility] Co de Phone Number [facility] [place] [address] * (ABNORMAL) POCT glucose (02/25/2025 9:09 AM CDT) Glucose, POC 205(H) 70 - 199 mg/dL Blood 02/25/2025 9:09 AM CDT 02/25/2025 9:09 AM CDT Nolan Barrow MD LAB POCT ORDERABLES - DEV ICE Final Result Performing Organization Address [facility] de Phone Number [facility] [place] [address] * eGFR (02/24/2025 8:06 PM CDT) eGFR [...] ORDERABLES Asya l Result Performing Organization Address [facility] de Phone Number [facility] [place] [address] * (ABNORMAL) CBC without differential (02/24/2025 8:06 PM CDT) WBC 13.73(H) 3.80 - 9.90 K/cumm Hgb 8.3(L) 13.0 - 17.5 g/dL [facility] Hct 24.3(L) 38.9 - 50.3 % [facility] Plt 96(L) 150 - 400 K/cumm [facility] MPV 12.4(H) 9.1 - 12.3 fL [facility] RBC 2.63(L) 4.30 - 5.80 M/cumm [facility] MCV 92.4 81.3 - 96.4 fL [facility] MCH 31.6 27.1 - 33.3 pg [facility] MCHC 34.2 32.3 - 35.7 g/dL [facility] RDW CV 16.1(H) 11.1 - 14.9 % [facility] RDW SD 53.3(H) 35.7 - 48.1 fL [facility] NRBC abs 0.08(H) 0.00 - 0.01 K/cumm [facility] Blood 02/24/2025 8:06 PM CDT 02/24/2025 8:22 PM CDT us Edi Olvera MD LAB BLOOD ORDERABLES Asya ma Result Performing Organization Address [facility] Co de Phone Number [facility] [place] [address] * (ABNORMAL) Magnesium (02/24/2025 8:06 PM CDT) Magnesium 2.9(H) 1.4 - 2.5 mg/dL Blood 02/24/2025 8:06 PM CDT 02/24/2025 8:22 PM CDT Edi Olvera MD LAB BLOOD ORDERABLES Asya l Result [facility] [place] [address] * (ABNORMAL) Comprehensive metabolic panel (02/24/2025 8:06 PM CDT) Pathologist [facility] Sodium 132(L) 135 - 145 mmol/L Potassium, pl 4.9 3.3 - 4.9 mmol/L [facility] Chloride 97 97 - 110 mmol/L [facility] CO2 25 22 - 32 mmol/L [facility] Anion gap 10 2 - 15 mmol/L [facility] BUN 80(H) 6 - 25 mg/dL [facility] Creatinine 1.09 0.80 - 1.30 mg/dL [facility] Glucose 271(H) 70 - 199 mg/dL [facility] Comment: Interpretive Data Fasting [...] 2022. Calcium 8.4(L) 8.5 - 10.3 mg/dL [facility] Bilirubin, total 0.5 0.1 - 1.2 mg/dL [facility] Protein, pl 6.4(L) 6.5 - 8.5 g/dL [facility] Albumin 2.8(L) 3.5 - 5.0 g/dL [facility] Alk phos 69 40 - 130 Units/L [facility] ALT 45 7 - 55 Units/L [facility] AST 46 10 - 50 Units/L [facility] Blood 02/24/2025 8:06 PM CDT 02/24/2025 8:22 PM CDT us Edi Olvera MD LAB BLOOD ORDERABLES Asya l Result Performing Organization Address [facility] Co de Phone Number [facility] [place] [address] * (ABNORMAL) POCT glucose (02/24/2025 8:05 PM CDT) Glucose, POC 283(H) 70 - 199 mg/dL Blood 02/24/2025 8:05 PM CDT 02/24/2025 8:05 PM CDT us Edi Olvera MD LAB POCT ORDERABLES - DEV ICE Final Result Performing Organization Address [facility] Co de Phone Number [facility] [place] [address] * POCT glucose (02/24/2025 5:56 PM CDT) Glucose, POC 180 70 - 199 mg/dL Blood 02/24/2025 5:56 PM CDT 02/24/2025 5:56 PM CDT Edi Olvera MD LAB POCT ORDERABLES - DEV ICE Final Result Performing Organization Address [facility] Co de Phone Number [facility] [place] [address] * POCT glucose (02/24/2025 12:31 PM CDT) Glucose, POC 182 70 - 199 mg/dL Blood 02/24/2025 12:3 1 PM CDT 02/24/2025 12:31 PM CDT Edi Olvera MD LAB POCT ORDERABLES - DEV ICE Final Result [facility] [place] [address] * XR Chest 1 View (02/24/2025 9:46 [...] Unchanged small left effusion. Dictated by: Fatmata Orion, M.D. The radiology attending physician has personally reviewed this study, and had reviewed and/or edited this written report and agrees with it. Electronically signed by: Lynda Romano M.D. us Edi Olvera MD IMG XR PROCEDURES Final R esult * (ABNORMAL) CBC without differential (02/24/2025 8:19 AM CDT) WBC 12.41(H) 3.80 - 9.90 K/cumm Hgb 8.4(L) 13.0 - 17.5 g/dL [facility] Hct 25.2(L) 38.9 - 50.3 % [facility] Plt 85(L) 150 - 400 K/cumm [facility] MPV 11.8 9.1 - 12.3 fL [facility] RBC 2.72(L) 4.30 - 5.80 M/cumm [facility] MCV 92.6 81.3 - 96.4 fL [facility] MCH 30.9 27.1 - 33.3 pg [facility] MCHC 33.3 32.3 - 35.7 g/dL [facility] RDW CV 15.9(H) 11.1 - 14.9 % [facility] RDW SD 53.0(H) 35.7 - 48.1 fL [facility] NRBC abs 0.04(H) 0.00 - 0.01 K/cumm [facility] Blood 02/24/2025 8:19 AM CDT 02/24/2025 9:25 AM CDT us Edi Olvera MD LAB BLOOD ORDERABLES Asya l Result [facility] of Laboratories [place], [place] [id number] * POCT glucose (02/24/2025 7:37 AM CDT) Glucose, POC 172 70 - 199 mg/dL Blood 02/24/2025 7:37 AM CDT 02/24/2025 7:37 AM CDT us Edi Olvera MD LAB POCT ORDERABLES - DEV ICE Final Result Performing Organization Address City/[facility]/ZIP Co de Phone Number [facility] [place] [address] * Calcium, ionized, whole blood (02/23/2025 9:17 PM CDT) Ca, ionized, bld 4.68 4.50 - 5.10 mg/dL Blood 02/23/2025 9:17 PM CDT 02/23/2025 9:27 PM CDT us Edi Olvera MD LAB BLOOD ORDERABLES Asya l Result Performing Organization Address [facility] de Phone Number [facility] [place] [address] * eGFR (02/23/2025 9:17 PM CDT) eGFR [...] ORDERABLES Asya ma Result Performing Organization Address [facility] Co de Phone Number [facility] [place] [address] * (ABNORMAL) CBC without differential (02/23/2025 9:17 PM CDT) WBC 12.00(H) 3.80 - 9.90 K/cumm Hgb 9.0(L) 13.0 - 17.5 g/dL [facility] Hct 26.2(L) 38.9 - 50.3 % [facility] Plt 83(L) 150 - 400 K/cumm [facility] MPV 11.5 9.1 - 12.3 fL [facility] RBC 2.83(L) 4.30 - 5.80 M/cumm [facility] MCV 92.6 81.3 - 96.4 fL [facility] MCH 31.8 27.1 - 33.3 pg [facility] MCHC 34.4 32.3 - 35.7 g/dL [facility] RDW CV 15.6(H) 11.1 - 14.9 % [facility] RDW SD 52.4(H) 35.7 - 48.1 fL [facility] NRBC abs 0.04(H) 0.00 - 0.01 K/cumm [facility] Blood 02/23/2025 9:17 PM CDT 02/23/2025 9:30 PM CDT us Edi Olvera MD LAB BLOOD ORDERABLES Asya ma Result Performing Organization Address [facility] Co de Phone Number [facility] [place] [address] * (ABNORMAL) Magnesium (02/23/2025 9:17 PM CDT) Pathologist [facility] Magnesium 3.0(H) 1.4 - 2.5 mg/dL Blood 02/23/2025 9:17 PM CDT 02/23/2025 9:30 PM CDT Edi Olvera MD LAB BLOOD ORDERABLES Asya ma Result [facility] [place] [address] * (ABNORMAL) Comprehensive metabolic panel (02/23/2025 9:17 PM CDT) Pathologist [facility] Sodium 136 135 - 145 mmol/L Potassium, pl 4.9 3.3 - 4.9 mmol/L [facility] Chloride 102 97 - 110 mmol/L [facility] CO2 27 22 - 32 mmol/L [facility] Anion gap 7 2 - 15 mmol/L [facility] BUN 84(H) 6 - 25 mg/dL [facility] Creatinine 1.09 0.80 - 1.30 mg/dL [facility] Glucose 173 70 - 199 mg/dL [facility] Comment: Interpretive Data Fasting [...] 2022. Calcium 8.3(L) 8.5 - 10.3 mg/dL [facility] Bilirubin, total 0.5 0.1 - 1.2 mg/dL [facility] Protein, pl 6.0(L) 6.5 - 8.5 g/dL [facility] Albumin 2.4(L) 3.5 - 5.0 g/dL [facility] Alk phos 67 40 - 130 Units/L [facility] ALT 46 7 - 55 Units/L [facility] AST 46 10 - 50 Units/L [facility] Blood 02/23/2025 9:17 PM CDT 02/23/2025 9:30 PM CDT us Edi Olvera MD LAB BLOOD ORDERABLES Asya l Result Performing Organization Address City/[facility] Co de Phone Number [facility] [place] [address] * POCT glucose (02/23/2025 8:33 PM CDT) Glucose, POC 198 70 - 199 mg/dL Blood 02/23/2025 8:33 PM CDT 02/23/2025 8:33 PM CDT us Edi Olvera MD LAB POCT ORDERABLES - DEV ICE Final Result Performing Organization Address City/[facility] Co de Phone Number [facility] [place] [address] * (ABNORMAL) POCT glucose (02/23/2025 4:25 PM CDT) Glucose, POC 225(H) 70 - 199 mg/dL Blood 02/23/2025 4:25 PM CDT 02/23/2025 4:25 PM CDT us Edi Olvera MD LAB POCT ORDERABLES - DEV ICE Final Result Performing Organization Address City/[facility] Co de Phone Number [facility] [place] [address] * (ABNORMAL) POCT glucose (02/23/2025 12:07 PM CDT) Glucose, POC 251(H) 70 - 199 mg/dL Blood 02/23/2025 12:0 7 PM CDT 02/23/2025 12:07 PM CDT us Edi Olvera MD LAB POCT ORDERABLES - DEV ICE Final Result Performing Organization Address [facility] Co de Phone Number [facility] [place] [address] * (ABNORMAL) Iron profile w/ IBC (02/23/2025 8:09 AM CDT) [facility] Iron 28(L) 50 - 150 mcg/dL TIBC 229(L) 250 - 400 mcg/dL [facility] Transferrin saturation 12(L) 20 - 50 % [facility] Blood 02/23/2025 8:09 AM CDT 02/23/2025 8:17 AM CDT Edi Olvera MD LAB BLOOD ORDERABLES Asya l Result Performing Organization Address [facility] Co de Phone Number [facility] [place] [address] * (ABNORMAL) CBC without differential (02/23/2025 8:09 AM CDT) [facility] WBC 13.25(H) 3.80 - 9.90 K/cumm Hgb 10.2(L) 13.0 - 17.5 g/dL [facility] Hct 29.8(L) 38.9 - 50.3 % [facility] Plt 92(L) 150 - 400 K/cumm [facility] MPV 12.0 9.1 - 12.3 fL [facility] RBC 3.20(L) 4.30 - 5.80 M/cumm [facility] MCV 93.1 81.3 - 96.4 fL [facility] MCH 31.9 27.1 - 33.3 pg [facility] MCHC 34.2 32.3 - 35.7 g/dL [facility] RDW CV 15.6(H) 11.1 - 14.9 % [facility] RDW SD 52.9(H) 35.7 - 48.1 fL [facility] NRBC abs 0.03(H) 0.00 - 0.01 K/cumm [facility] Blood 02/23/2025 8:09 AM CDT 02/23/2025 8:17 AM CDT Edi Olvera MD LAB BLOOD ORDERABLES Asya l Result Performing Organization Address City/[facility] Co de Phone Number [facility] [place] [address] * Folate (02/23/2025 8:09 AM CDT) Pathologist [facility] Folic acid 13.1 >=5.0 ng/mL Blood 02/23/2025 8:09 AM CDT 02/23/2025 8:17 AM CDT Edi Olvera MD LAB BLOOD ORDERABLES Asya l Result Performing Organization Address [facility] Co de Phone Number [facility] [place] [place] [address] * Ferritin (02/23/2025 8:09 AM CDT) Pathologist [facility] Ferritin 143 30 - 400 ng/mL Blood 02/23/2025 8:09 AM CDT 02/23/2025 8:17 AM CDT Edi Olvera MD LAB BLOOD ORDERABLES Asya l Result Performing Organization Address City/[facility] Co de Phone Number [facility] [place] [address] * (ABNORMAL) Vitamin B12 (02/23/2025 8:09 AM CDT) Pathologist [facility] Vitamin B12 >2,000(H) 230 - 1,250 pg/mL Blood 02/23/2025 8:09 AM CDT 02/23/2025 8:17 AM CDT us Edi Olvera MD LAB BLOOD ORDERABLES Asya l Result [facility] [place] [address] * POCT glucose (02/23/2025 8:08 AM CDT) Glucose, POC 167 70 - 199 mg/dL Blood 02/23/2025 8:08 AM CDT 02/23/2025 8:08 AM CDT us Edi Olvera MD LAB POCT ORDERABLES - DEV ICE Final Result Performing Organization Address [facility] Co de Phone Number [facility] [place] [address] * eGFR (02/23/2025 6:17 AM CDT) eGFR 69 >=60 mL/min/1. 73 m2 Comment: [...] ORDERABLES Asya l Result Performing Organization Address City/[facility] Co de Phone Number [facility] [place] [address] * (ABNORMAL) Magnesium (02/23/2025 6:17 AM CDT) Pathologist [facility] Magnesium 3.0(H) 1.4 - 2.5 mg/dL Blood 02/23/2025 6:17 AM CDT 02/23/2025 6:41 AM CDT Edi Olvera MD LAB BLOOD ORDERABLES Asya l Result Performing Organization Address [facility] de Phone Number [facility] [place] [address] * Blood gas, venous (02/23/2025 6:17 AM CDT) Pathologist [facility] pH, Venous 7.40 7.32 - 7.43 PCO2, Venous 46 40 - 50 mmHg [facility] PO2, Venous 39 mmHg [facility] Comment: Interpretive Data No Reference Range Established Current Interpretive Data was last revised on 2018. HCO3 Venous, Calculated 29 20 - 30 mmol/L [facility] BE, venous 3 mmol/L [facility] Comment: Interpretive Data No Reference Range Established Current Interpretive Data was last revised on 2018. Blood 02/23/2025 6:17 AM CDT 02/23/2025 6:31 AM CDT Edi Olvera MD LAB BLOOD ORDERABLES Asya l Result Performing Organization Address [facility] Co de Phone Number [facility] [place] [address] * (ABNORMAL) Comprehensive metabolic panel (02/23/2025 6:17 AM CDT) Pathologist [facility] Sodium 132(L) 135 - 145 mmol/L Potassium, pl 4.6 3.3 - 4.9 mmol/L [facility] Chloride 98 97 - 110 mmol/L [facility] CO2 28 22 - 32 mmol/L [facility] Anion gap 6 2 - 15 mmol/L [facility] BUN 81(H) 6 - 25 mg/dL [facility] Creatinine 1.13 0.80 - 1.30 mg/dL [facility] Glucose 191 70 - 199 mg/dL [facility] Comment: Interpretive Data Fasting [...] 2022. Calcium 8.0(L) 8.5 - 10.3 mg/dL [facility] Bilirubin, total 0.6 0.1 - 1.2 mg/dL [facility] Protein, pl 6.1(L) 6.5 - 8.5 g/dL [facility] Albumin 2.4(L) 3.5 - 5.0 g/dL [facility] Alk phos 80 40 - 130 Units/L [facility] ALT 52 7 - 55 Units/L [facility] AST 49 10 - 50 Units/L [facility] Blood 02/23/2025 6:17 AM CDT 02/23/2025 6:41 AM CDT us Edi Olvera MD LAB BLOOD ORDERABLES Asya ma Result [facility] [place] [address] * POCT glucose (02/23/2025 3:43 AM CDT) Pathologist [facility] Glucose, POC 195 70 - 199 mg/dL Blood 02/23/2025 3:43 AM CDT 02/23/2025 3:43 AM CDT Edi Olvera MD LAB POCT ORDERABLES - DEV ICE Final Result Performing Organization Address City/[facility]/ZIP Co de Phone Number [facility] [place] [address] * POCT glucose (02/23/2025 12:02 AM CDT) [facility] Glucose, POC 194 70 - 199 mg/dL Blood 02/23/2025 12:0 2 AM CDT 02/23/2025 12:02 AM CDT Edi Olvera MD LAB POCT ORDERABLES - DEV ICE Final Result Performing Organization Address City/[facility] de Phone Number [facility] [place] [address] * (ABNORMAL) CBC without differential (02/22/2025 10:18 PM CDT) [facility] WBC 12.55(H) 3.80 - 9.90 K/cumm Hgb 10.1(L) 13.0 - 17.5 g/dL [facility] Hct 30.0(L) 38.9 - 50.3 % [facility] Plt 91(L) 150 - 400 K/cumm [facility] MPV 12.2 9.1 - 12.3 fL [facility] RBC 3.22(L) 4.30 - 5.80 M/cumm [facility] MCV 93.2 81.3 - 96.4 fL [facility] MCH 31.4 27.1 - 33.3 pg [facility] MCHC 33.7 32.3 - 35.7 g/dL [facility] RDW CV 15.6(H) 11.1 - 14.9 % [facility] RDW SD 53.1(H) 35.7 - 48.1 fL [facility] NRBC abs 0.02(H) 0.00 - 0.01 K/cumm [facility] Blood 02/22/2025 10:1 8 PM CDT 02/22/2025 10:39 PM CDT us Edi Olvera MD LAB BLOOD ORDERABLES Asya l Result Performing Organization Address [facility] Co de Phone Number [facility] [place] [address] * (ABNORMAL) Blood gas, venous (02/22/2025 10:18 PM CDT) pH, Venous 7.35 7.32 - 7.43 PCO2, Venous 52(H) 40 - 50 mmHg [facility] PO2, Venous 41 mmHg [facility] Comment: Interpretive Data No Reference Range Established Current Interpretive Data was last revised on 2018. HCO3 Venous, Calculated 30 20 - 30 mmol/L [facility] BE, venous 2 mmol/L [facility] Comment: Interpretive Data No Reference Range Established Current Interpretive Data was last revised on 2018. Blood 02/22/2025 10:1 8 PM CDT 02/22/2025 10:31 PM CDT us Edi Olvera MD LAB BLOOD ORDERABLES Asya l Result Performing Organization Address [facility] Co de Phone Number [facility] [place] [address] * POCT glucose (02/22/2025 9:47 PM CDT) Glucose, POC 159 70 - 199 mg/dL Blood 02/22/2025 9:47 PM CDT 02/22/2025 9:47 PM CDT Edi Olvera MD LAB POCT ORDERABLES - DEV ICE Final Result [facility] [place] [address] * (ABNORMAL) POCT glucose (02/22/2025 4:32 PM CDT) [facility] Glucose, POC 208(H) 70 - 199 mg/dL Blood 02/22/2025 4:32 PM CDT 02/22/2025 4:32 PM CDT Edi Olvera MD LAB POCT ORDERABLES - DEV ICE Final Result Performing Organization Address [facility] Co de Phone Number [facility] [place] [address] * (ABNORMAL) CBC without differential (02/22/2025 3:32 PM CDT) [facility] WBC 11.82(H) 3.80 - 9.90 K/cumm Hgb 10.3(L) 13.0 - 17.5 g/dL [facility] Hct 30.6(L) 38.9 - 50.3 % [facility] Plt 100(L) 150 - 400 K/cumm [facility] MPV 12.3 9.1 - 12.3 fL [facility] RBC 3.27(L) 4.30 - 5.80 M/cumm [facility] MCV 93.6 81.3 - 96.4 fL [facility] MCH 31.5 27.1 - 33.3 pg [facility] MCHC 33.7 32.3 - 35.7 g/dL [facility] RDW CV 15.5(H) 11.1 - 14.9 % [facility] RDW SD 53.1(H) 35.7 - 48.1 fL [facility] NRBC abs 0.03(H) 0.00 - 0.01 K/cumm [facility] Blood 02/22/2025 3:32 PM CDT 02/22/2025 3:42 PM CDT us Edi Olvera MD LAB BLOOD ORDERABLES Asya ma Result [facility] [place] [address] * XR Chest 1 View (02/22/2025 1:10 [...] Cardiomediastinal silhouette is obscured. Dictated by: Fatmata Proctor, M.D. The radiology attending physician has personally reviewed this study, and had reviewed and/or edited this written report and agrees with it. Electronically signed by: Elis Noonan M.D. Edi Olvera MD IMG XR PROCEDURES Final R esult * (ABNORMAL) Protime-INR (02/22/2025 12:02 PM CDT) Pathologist [facility] PT 14.0(H) 9.7 - 13.0 sec INR 1.29(H) 0.90 - 1.20 [facility] Comment: Interpretive data Oral anticoagulant therapeutic ranges: Venous thromboembolism prophylaxis or treatment: 2.0-3.0 CARDIOLOGY Standard range: 2.0-3.0 High-intensity range: 2.5-3.5 Refer to indication-specific guidelines for appropriate target ranges for prosthetic heart valve replacement. Current interpretive data was last revised on 2019. Blood 02/22/2025 12:0 2 PM CDT 02/22/2025 12:25 PM CDT Result [facility] Edi Olvera MD LAB BLOOD ORDERABLES Asya l Result Performing Organization Address City/[facility] Co de Phone Number [facility] [place] [place] [address] * POCT glucose (02/22/2025 12:01 PM CDT) [facility] Glucose, POC 188 70 - 199 mg/dL Blood 02/22/2025 12:0 1 PM CDT 02/22/2025 12:01 PM CDT Edi Olvera MD LAB POCT ORDERABLES - DEV ICE Final Result Performing Organization Address City/[facility] Co de Phone Number [facility] [place] [employer] [place] [address] * Pneumonia PCR Sputum (02/22/2025 8:52 AM CDT) [facility] C. pneumoniae DNA Not Detected Not Detected Legionella pneumophila DNA Not Detected Not Detected [facility] M. pneumoniae DNA Not Detected Not Detected [facility] Adenovirus DNA Not Detected Not Detected [facility] Coronavirus (229E, OC43, HKU1, NL63) RNA Not Detected Not Detected [facility] Metapneumovirus RNA Not Detected Not Detected [facility] Rhinovirus/Enterov irus RNA Not Detected Not Detected [facility] Influenza A RNA Not Detected Not Detected [facility] Influenza B RNA Not Detected Not Detected [facility] Parainfluenza virus (1-4) RNA Not Detected Not Detected [facility] RSV RNA Not Detected Not Detected [facility] Sputum 02/22/2025 8:52 AM CDT 02/22/2025 10:27 AM CDT Narrative [facility] - 02/22/2025 11:51 AM CDT The BioFire [...] assay have been determined by [facility]. Current interpretive data was last revised on 2024. Hood Pacheco MD LAB MICROBIOLOGY - GENERAL ORDER MICHELLE Final Result [facility] [place] [address] * (ABNORMAL) Pneumonia PCR with aerobic culture and Gram stain Sputum (02/22/2025 8:52 AM CDT) Direct Specimen Exam Molecular Analysis: 10^6 copies/mL Streptococcus pneumoniae Correlation of molecular analysis with final culture results is recommended. Direct Specimen Exam Stain: Few polymorphonuclear leukocytes seen. Few squamous epithelial cells seen. Rare mixed bacterial janet seen on Gram stain. [facility] Report Final Report: Growth indicates upper respiratory janet. (.) [facility] Organism GROWTH INDICATES UPPER RESPIRATORY JANET. [facility] Sputum 02/22/2025 8:52 AM CDT 02/22/2025 9:52 AM CDT Narrative [facility] - 02/24/2025 10:18 AM CDT When rapid molecular testing results are reported, testing completed using the Engage Pneumonia Panel. This molecular assay detects: Acinetobacter [...] results and susceptibility testing is recommended. The [employer]arks Pneumonia Panel is cleared by the Food and Drug Administration and its performance characteristics have been confirmed by the [facility]. The performance of the FilmArray Pneumonia Panel has not been established for monitoring treatment of infection and bacterial nucleic acids may persist independent of organism viability. Hood Pacheco MD LAB MICROBIOLOGY - GENERAL ORDER MICHELLE Final Result Performing Organization Address [facility] [place] [address] * C. difficile testing Stool (02/22/2025 8:52 AM CDT) [facility] Result Negative Negative Toxin Result Negative Negative [facility] C. diff result Negative, free toxin Negative, free toxin [facility] C. diff interp Negative for toxigenic Clostridioides (Clostridium) difficile. Analysis was performed using a glutamate dehydrogenase antigen detection assay combined with a C. difficile toxin detection assay. [facility] Stool 02/22/2025 8:52 AM CDT 02/22/2025 9:56 AM CDT Divine Weiss NP LAB MICROBIOLOGY - GENERAL ORD ERABLES Final Result Performing Organization Address [facility] Co de Phone Number [facility] [address] * Norovirus PCR Stool (02/22/2025 8:52 AM CDT) [facility] Norovirus GI RNA Not Detected Not Detected [facility] Norovirus GII RNA Not Detected Not Detected [facility] Comment: Interpretive data: Testing performed at the [facility] using the 22se[employer] Xpert Norovirus Assay. This assay uses nucleic [...] AM CDT 02/22/2025 1:20 PM CDT Divine Weiss NP LAB MICROBIOLOGY - GENERAL ORD ERABLES Final Result Performing Organization Address [facility] de Phone Number [facility] [place] [address] [facility] * Infection Prevention VRE Culture Stool (02/22/2025 8:47 AM CDT) Report Final Report: Negative Stool 02/22/2025 8:47 AM CDT 02/22/2025 12:33 PM CDT Narrative [facility] - 02/24/2025 3:34 PM CDT Surveillance culture for Infection Prevention purposes only; results indicate colonization, not infection requiring treatment. Testing performed by [facility] ([phone]). Edi Olvera MD LAB MICROBIOLOGY - GENERA L ORDERABLES Final Result Performing Organization Address [facility] de Phone Number [facility] [place] [address] * POCT glucose (02/22/2025 8:15 AM CDT) Glucose, POC 126 70 - 199 mg/dL Blood 02/22/2025 8:15 AM CDT 02/22/2025 8:15 AM CDT Edi Olvera MD LAB POCT ORDERABLES - DEV ICE Final Result Performing Organization Address [facility]/ZIP Co de Phone Number [facility] [place] [address] * Lactate (02/22/2025 6:21 AM CDT) Lactate 1.6 0.7 - 2.0 mmol/L Blood 02/22/2025 6:21 AM CDT 02/22/2025 6:45 AM CDT us Hood Pacheco MD LAB BLOOD ORDERABLES Final Resul t Performing Organization Address [facility] de Phone Number [facility] [place] [address] * (ABNORMAL) eGFR (02/22/2025 6:21 AM CDT) [...] 6:21 AM CDT 02/22/2025 7:08 AM CDT us Hood Pacheco MD LAB BLOOD ORDERABLES Final Resul t Performing Organization Address City/[facility] Co de Phone Number [facility] [place] [address] * HIV 1/2 Antibody plus p24 Antigen Blood (02/22/2025 6:21 AM CDT) Pathologist [facility] HIV 1/2 ab + p24 ag Nonreactive [...] ORDER MICHELLE Final Result Performing Organization Address City/[facility] [place] [address] * Hepatitis C antibody Blood (02/22/2025 6:21 AM CDT) Pathologist [facility] Hep C Ab Nonreactive Nonreactive Comment:Antibodies to HCV no t detected. Does NOT exclude the possibility of recent exposure to HCV. Current interpretive data was last revised on 22 Blood 02/22/2025 6:21 AM CDT 02/22/2025 7:57 AM CDT Hood Pacheco MD LAB MICROBIOLOGY - GENERAL ORDER MICHELLE Final Result [facility] [place] [address] * RPR Blood (02/22/2025 6:21 AM CDT) Pathologist [facility] RPR Nonreactive Nonreactive Blood 02/22/2025 6:21 AM CDT 02/22/2025 6:46 AM CDT Hood Pacheco MD LAB MICROBIOLOGY - GENERAL ORDER MICHELLE Final Result [facility] [place] [address] * Hepatitis B Surface Antigen Blood (02/22/2025 6:21 AM CDT) [facility] HepBsAg Nonreactive Nonreactive Blood 02/22/2025 6:21 AM CDT 02/22/2025 7:57 AM CDT Hood Pacheco MD LAB MICROBIOLOGY - GENERAL ORDER MICHELLE Final Result Performing Organization Address City/[facility] Co de Phone Number [facility] [place] [address] * (ABNORMAL) CBC without differential (02/22/2025 6:21 AM CDT) [facility] WBC 11.02(H) 3.80 - 9.90 K/cumm Hgb 10.1(L) 13.0 - 17.5 g/dL [facility] Hct 30.2(L) 38.9 - 50.3 % [facility] Plt 82(L) 150 - 400 K/cumm [facility] MPV 11.9 9.1 - 12.3 fL [facility] RBC 3.23(L) 4.30 - 5.80 M/cumm [facility] MCV 93.5 81.3 - 96.4 fL [facility] MCH 31.3 27.1 - 33.3 pg [facility] MCHC 33.4 32.3 - 35.7 g/dL [facility] RDW CV 15.5(H) 11.1 - 14.9 % [facility] RDW SD 52.8(H) 35.7 - 48.1 fL [facility] NRBC abs 0.02(H) 0.00 - 0.01 K/cumm [facility] Blood 02/22/2025 6:21 AM CDT 02/22/2025 7:03 AM CDT Hood Pacheco MD LAB BLOOD ORDERABLES Final Resul t Performing Organization Address [facility] Co de Phone Number [facility] [place] [address] * (ABNORMAL) Blood gas, venous (02/22/2025 6:21 AM CDT) pH, Venous 7.35 7.32 - 7.43 PCO2, Venous 51(H) 40 - 50 mmHg [facility] PO2, Venous 39 mmHg [facility] Comment: Interpretive Data No Reference Range Established Current Interpretive Data was last revised on 2018. HCO3 Venous, Calculated 29 20 - 30 mmol/L [facility] BE, venous 2 mmol/L [facility] Comment: Interpretive Data No Reference Range Established Current Interpretive Data was last revised on 2018. Blood 02/22/2025 6:21 AM CDT 02/22/2025 6:40 AM CDT Edi Olvera MD LAB BLOOD ORDERABLES Asya l Result Performing Organization Address City/[facility] Co de Phone Number [facility] [place] [address] * (ABNORMAL) Comprehensive metabolic panel (02/22/2025 6:21 AM CDT) Sodium 131(L) 135 - 145 mmol/L Potassium, pl 4.4 3.3 - 4.9 mmol/L [facility] Chloride 98 97 - 110 mmol/L [facility] CO2 30 22 - 32 mmol/L [facility] Anion gap 3 2 - 15 mmol/L [facility] BUN 72(H) 6 - 25 mg/dL [facility] Creatinine 1.35(H) 0.80 - 1.30 mg/dL [facility] Glucose 113 70 - 199 mg/dL [facility] Comment: Interpretive Data Fasting [...] 2022. Calcium 8.0(L) 8.5 - 10.3 mg/dL [facility] Bilirubin, total 0.6 0.1 - 1.2 mg/dL [facility] Protein, pl 5.8(L) 6.5 - 8.5 g/dL [facility] Albumin 2.4(L) 3.5 - 5.0 g/dL [facility] Alk phos 57 40 - 130 Units/L [facility] ALT 53 7 - 55 Units/L [facility] AST 57(H) 10 - 50 Units/L [facility] Blood 02/22/2025 6:21 AM CDT 02/22/2025 7:08 AM CDT Hood Pacheco MD LAB BLOOD ORDERABLES Final Resul t Performing Organization Address City/[facility]/ZIP Co de Phone Number [facility] [place] [address] * (ABNORMAL) Lactate (02/22/2025 12:55 AM CDT) Lactate 2.6(H) 0.7 - 2.0 mmol/L Blood 02/22/2025 12:5 5 AM CDT 02/22/2025 1:16 AM CDT Hood Pacheco MD LAB BLOOD ORDERABLES Final Resul t [facility] [place] [address] * Oxyhemoglobin, central venous (02/21/2025 8:07 PM CDT) Oxyhemoglobin, CV 77.9 % Comment: Interpretive Data No reference range established. Current interpretive data was last revised 2020. Blood 02/21/2025 8:07 PM CDT 02/21/2025 8:16 PM CDT Edi Olvera MD LAB BLOOD ORDERABLES Asya l Result Performing Organization Address [facility] Co de Phone Number [facility] [place] [address] * (ABNORMAL) Lactate (02/21/2025 8:07 PM CDT) Pathologist [facility] Lactate 2.5(H) 0.7 - 2.0 mmol/L Blood 02/21/2025 8:07 PM CDT 02/21/2025 8:18 PM CDT Edi Olvera MD LAB BLOOD ORDERABLES Asya l Result Performing Organization Address [facility] de Phone Number [facility] [place] [address] * (ABNORMAL) eGFR (02/21/2025 8:07 PM CDT) eGFR 53(L) >=60 mL/min/1. 73 m2 Comment: [...] ORDERABLES Final Resul t Performing Organization Address [facility] de Phone Number [facility] [place] [place] [address] * (ABNORMAL) CBC without differential (02/21/2025 8:07 PM CDT) WBC 14.26(H) 3.80 - 9.90 K/cumm Hgb 11.1(L) 13.0 - 17.5 g/dL [facility] Hct 33.3(L) 38.9 - 50.3 % [facility] Plt 107(L) 150 - 400 K/cumm [facility] MPV 12.6(H) 9.1 - 12.3 fL [facility] RBC 3.51(L) 4.30 - 5.80 M/cumm [facility] MCV 94.9 81.3 - 96.4 fL [facility] MCH 31.6 27.1 - 33.3 pg [facility] MCHC 33.3 32.3 - 35.7 g/dL [facility] RDW CV 15.6(H) 11.1 - 14.9 % [facility] RDW SD 53.3(H) 35.7 - 48.1 fL [facility] NRBC abs 0.02(H) 0.00 - 0.01 K/cumm [facility] Blood 02/21/2025 8:07 PM CDT 02/21/2025 8:18 PM CDT Hood Pacheco MD LAB BLOOD ORDERABLES Final Resul t Performing Organization Address [facility] Co de Phone Number [facility] [place] [place] [address] * (ABNORMAL) Comprehensive metabolic panel (02/21/2025 8:07 PM CDT) Sodium 127(L) 135 - 145 mmol/L Potassium, pl 4.6 3.3 - 4.9 mmol/L [facility] Chloride 95(L) 97 - 110 mmol/L [facility] CO2 27 22 - 32 mmol/L [facility] Anion gap 5 2 - 15 mmol/L [facility] BUN 66(H) 6 - 25 mg/dL [facility] Creatinine 1.41(H) 0.80 - 1.30 mg/dL [facility] Glucose 182 70 - 199 mg/dL [facility] Comment: Interpretive Data Fasting [...] 2022. Calcium 8.0(L) 8.5 - 10.3 mg/dL [facility] Bilirubin, total 0.8 0.1 - 1.2 mg/dL [facility] Protein, pl 6.3(L) 6.5 - 8.5 g/dL [facility] Albumin 2.6(L) 3.5 - 5.0 g/dL [facility] Alk phos 57 40 - 130 Units/L [facility] ALT 48 7 - 55 Units/L [facility] AST 54(H) 10 - 50 Units/L [facility] Blood 02/21/2025 8:07 PM CDT 02/21/2025 8:18 PM CDT us Hood Pacheco MD LAB BLOOD ORDERABLES Final Resul t [facility] [place] [address] * POCT glucose (02/21/2025 8:06 PM CDT) Glucose, POC 166 70 - 199 mg/dL Blood 02/21/2025 8:06 PM CDT 02/21/2025 8:06 PM CDT Edi Olvera MD LAB POCT ORDERABLES - DEV ICE Final Result Performing Organization Address [facility] Co de Phone Number [facility] [place] [address] * Infection Prevention Roberto auris PCR, surveillance Axilla/Groin (02/21/2025 6:52 PM CDT) [facility] Roberto auris DNA Not Detected Not Detected [facility] Comment: Interpretive Data Testing performed by [facility] using the Baltazar lakeshia 6800 Roberto auris assay. This assay detects DNA from Roberto auris using Real-Time PCR. This assay is laboratory developed and is not cleared by the [place] Food and Drug Administration. The performance characteristics have been verified by the [facility]. Axilla/Groin 02/21/2025 6:52 PM CDT 02/21/2025 7:08 PM CDT Result [facility] Espinoza Salazar MD LAB MICROBIOLOGY - GENERAL ORDER MICHELLE Final Result Performing Organization Address [facility] Co de Phone Number [facility] [place] [address] [facility] * POCT glucose (02/21/2025 3:34 PM CDT) Glucose, POC 133 70 - 199 mg/dL Blood 02/21/2025 3:34 PM CDT 02/21/2025 3:34 PM CDT Edi Olvera MD LAB POCT ORDERABLES - DEV ICE Final Result Performing Organization Address [facility] Co de Phone Number [facility] [place] [address] * Oxyhemoglobin, central venous (02/21/2025 1:09 PM CDT) Oxyhemoglobin, CV 80.5 % Comment: Interpretive Data No reference range established. Current interpretive data was last revised 2020. Blood 02/21/2025 1:09 PM CDT 02/21/2025 1:30 PM CDT Hodo Pacheco MD LAB BLOOD ORDERABLES Final Resul t Performing Organization Address [facility] Co de Phone Number [facility] [place] [address] * (ABNORMAL) Lactate (02/21/2025 1:09 PM CDT) Lactate 2.3(H) 0.7 - 2.0 mmol/L Blood 02/21/2025 1:09 PM CDT 02/21/2025 1:37 PM CDT Hood Pacheco MD LAB BLOOD ORDERABLES Final Resul t Performing Organization Address [facility] Co de Phone Number [facility] [place] [address] * (ABNORMAL) Blood gas, venous (02/21/2025 1:09 PM CDT) pH, Venous 7.26(L) 7.32 - 7.43 PCO2, Venous 65(H) 40 - 50 mmHg [facility] PO2, Venous 55 mmHg [facility] Comment: Interpretive Data No Reference Range Established Current Interpretive Data was last revised on 2018. HCO3 Venous, Calculated 30 20 - 30 mmol/L [facility] BE, venous 1 mmol/L [facility] Comment: Interpretive Data No Reference Range Established Current Interpretive Data was last revised on 2018. Blood 02/21/2025 1:09 PM CDT 02/21/2025 1:30 PM CDT us Hood Pacheco MD LAB BLOOD ORDERABLES Final Resul t [facility] [place] [address] * CT Chest PE (CTA) Abdomen Pelvis [...] ORDERABLES - DEVICE Fin al Result [facility] [place] [address] * TRANSTHORACIC ECHO (TTE) COMPLETE W DOPPLER/CF W CONTRAST (02/21/2025 10:20 AM CDT) Anatomical Region Laterality Modality Ultrasound 02/21/2025 9:10 AM CDT Narrative 02/21/2025 1:03 PM CDT [facility] [place] [address] Transthoracic Echocardiographic Report Patient Name: JUD CAMPOS L : 1955 (70y ) Gender: M Study Date: 02/21/2025 09:10:55 AM Ht(Inch): 73 Wt(Lb): 261.02 BSA: 2.47 Control Electrician: Martha Escobar RDCS [facility] Location: [id number] Order Provider: DIVINE WEISS BMI: 34.43 BP: 123 / 61 Ref Provider: DIVINE WEISS - PROCEDURES: Echocardiographic Report: Transthoracic complete echo [...] Note De Ramya Lake MD - 02/21/2025 [facility] [place] [address] Transthoracic Echocardiographic Report Patient Name: JUD CAMPOS L : 1955 (70y ) Gender: M Study Date: 02/21/2025 09:10:55 AM Ht(Inch): 73 Wt(Lb): 261.02 BSA: 2.47 Control Electrician: Martha Escobar RDCS, [facility] Location: [id number] Order Provider:DIVINE WEISS BMI: 34.43 BP: 123 / 61 Ref Provider: DIVINE WEISS - PROCEDURES: Echocardiographic Report: Transthoracic complete echo [...] Vel3.8 m/s LV Thickness Ratio 1.0 AI BAQ351.44 msec RWT 0.35 MV E Peak Vel0.9 m/s [ 0.6 - 1.3 ] EDV Mod BP 231.00 ml [ 62.00 - 150.00 ] MV A Peak Vel0.7 m/s [ 1.0 - 1.2 ] LV EDV Index 93.52 ml/m2 MV E/A1.2 ratio [ 0.8 - 1.5 ] ESV Mod BP 115.00 ml [ 21.00 - 61.00 ] MV Decel Zsjc918.58 msec [ 104.00 - 258.00 ] EF [...] cm [ 1.71 - 5.00 ] RA Yniade90.39 ml RA Volume Index28.50 ml/m2 AoR Diam 2D 3.98 cm [ 3.10 - 3.70 ] Ao Root Index 1.61 cm/m2 [ 1.00 - 2.00 ] Asc Ao Diam 2D3.42 cm Asc Ao Index1.38 cm/m2 Electronically Signed By: Ramya Morris MD 02/21/2025 1:02:41 PM CDT [employer] - Resting us Divine Weiss 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 CV ECHO PROCEDURES Final Resul t * POCT glucose (02/21/2025 7:28 AM CDT) Glucose, POC 85 70 - 199 mg/dL Blood 02/21/2025 7:28 AM CDT 02/21/2025 7:28 AM CDT us Hood Pacheco MD LAB POCT ORDERABLES - DEVICE Fin al Result [facility] [place] [address] * (ABNORMAL) Lactate (02/21/2025 5:06 AM CDT) Pathologist [facility] Lactate 3.4(H) 0.7 - 2.0 mmol/L Blood 02/21/2025 5:06 AM CDT 02/21/2025 5:23 AM CDT us Gisela Camejo MD LAB BLOOD ORDERABLES Final Result [facility] [place] [address] * (ABNORMAL) eGFR (02/21/2025 5:06 AM CDT) [...] MD LAB BLOOD ORDERABLES Final Resul t [facility] [place] [address] * (ABNORMAL) POC Blood Gas and Chemistries, Arterial - (02/21/2025 5:06 AM CDT) pH, Art POC 7.34(L) 7.35 - 7.45 pCO2, Art POC 49(H) 35 - 45 mmHg [facility] pO2, Art POC 78(L) 83 - 108 mmHg [facility] Na, POC 129(L) 135 - 145 mmol/L [facility] K POC 3.8 3.3 - 4.9 mmol/L [facility] Comment: Interpretive Data Not all point of care methods assess for hemolysis. Confirm with instrument and retest K+ if not consistent with clinical signs and symptoms. Current Interpretive Data was last revised on 2024. Cl, POC 97 97 - 110 mmol/L [facility] Ionized Ca, POC 4.90 4.50 - 5.10 mg/dL [facility] Glucose, POC 116 70 - 199 mg/dL [facility] Lactate, POC 3.0(H) 0.7 - 2.0 mmol/L [facility] O2Hb, Art POC 94.4 90.0 - 95.0 % [facility] COHb, Art POC 2.2 0.0 - 2.9 % [facility] MetHgb, Art POC 0.7 0.0 - 1.9 % [facility] SO2 (annalisa) arterial 97(H) 90 - 95 % [facility] Base excess, POC 0.1 mmol/L [facility] HCO3, Art POC 26 20 - 30 mmol/L [facility] Hct, POC 35.0(L) 41.4 - 51.6 % [facility] Total Hb, POC 11.5(L) 13.8 - 17.2 g/dL [facility] Blood 02/21/2025 5:06 AM CDT 02/21/2025 5:06 AM CDT Hood Pacheco MD LAB POCT ORDERABLES - DEVICE Fin al Result Performing Organization Address [facility] de Phone Number [facility] [place] [address] * Urea nitrogen, urine, random (02/21/2025 5:06 AM CDT) Urea nitrogen, ur 656 mg/dL Comment: Interpretive Data No reference range established. Current interpretive data was last revised 2019. Urine 02/21/2025 5:06 AM CDT 02/21/2025 5:23 AM CDT Ivet Hawk MD LAB URINE ORDERABLES Final Result Performing Organization Address [facility] de Phone Number [facility] [place] [address] * Sodium, urine, random (02/21/2025 5:06 AM CDT) Sodium, ur <20 mmol/L Comment: Interpretive Data No reference range established. Current interpretive data was last revised 2019. Urine (Urine, Clean Catch) 02/21/2025 5:06 AM CDT 02/21/2025 5:23 AM CDT Ivet Hawk MD LAB URINE ORDERABLES Final Result Performing Organization Address [facility] Co de Phone Number [facility] [place] [address] * Creatinine, urine, random (02/21/2025 5:06 AM CDT) [facility] Creatinine Ur 93.5 mg/dL Comment: Interpretive Data No reference range established. Current interpretive data was last revised 2019. Urine 02/21/2025 5:06 AM CDT 02/21/2025 5:23 AM CDT us Ivet Hawk MD LAB URINE ORDERABLES Final Result Performing Organization Address [facility] de Phone Number [facility] [place] [address] * (ABNORMAL) CBC without differential (02/21/2025 5:06 AM CDT) [facility] WBC 9.6 3.8 - 9.9 K/cumm Hgb 11.4(L) 13.0 - 17.5 g/dL [facility] Hct 34.4(L) 38.9 - 50.3 % [facility] Plt 96(L) 150 - 400 K/cumm [facility] MPV 12.6(H) 9.1 - 12.3 fL [facility] RBC 3.67(L) 4.30 - 5.80 M/cumm [facility] MCV 93.7 81.3 - 96.4 fL [facility] MCH 31.1 27.1 - 33.3 pg [facility] MCHC 33.1 32.3 - 35.7 g/dL [facility] RDW CV 15.3(H) 11.1 - 14.9 % [facility] RDW SD 52.7(H) 35.7 - 48.1 fL [facility] NRBC abs 0.02(H) 0.00 - 0.01 K/cumm [facility] Blood 02/21/2025 5:06 AM CDT 02/21/2025 5:23 AM CDT Hood Pacheco MD LAB BLOOD ORDERABLES Final Resul t Performing Organization Address City/[facility] Co de Phone Number [facility] [place] [address] * (ABNORMAL) Phosphorus (02/21/2025 5:06 AM CDT) Phosphorus, pl 4.7(H) 2.3 - 4.5 mg/dL Blood 02/21/2025 5:06 AM CDT 02/21/2025 5:26 AM CDT Hood Pacheco MD LAB BLOOD ORDERABLES Final Resul t Performing Organization Address [facility] de Phone Number [facility] [place] [address] * Magnesium (02/21/2025 5:06 AM CDT) Magnesium 2.3 1.4 - 2.5 mg/dL Blood 02/21/2025 5:06 AM CDT 02/21/2025 5:26 AM CDT Hood Pacheco MD LAB BLOOD ORDERABLES Final Resul t Performing Organization Address [facility] de Phone Number [facility] [place] [address] * Creatine kinase (CK), total (02/21/2025 5:06 AM CDT) CK 164 40 - 300 Units/L Blood 02/21/2025 5:06 AM CDT 02/21/2025 5:26 AM CDT Hood Pacheco MD LAB BLOOD ORDERABLES Final Resul t Performing Organization Address [facility] Co de Phone Number [facility] [place] [address] * (ABNORMAL) Comprehensive metabolic panel (02/21/2025 5:06 AM CDT) Sodium 129(L) 135 - 145 mmol/L Potassium, pl 4.0 3.3 - 4.9 mmol/L [facility] Chloride 92(L) 97 - 110 mmol/L [facility] CO2 25 22 - 32 mmol/L [facility] Anion gap 12 2 - 15 mmol/L [facility] BUN 56(H) 6 - 25 mg/dL [facility] Creatinine 1.71(H) 0.80 - 1.30 mg/dL [facility] Glucose 111 70 - 199 mg/dL [facility] Comment: Interpretive Data Fasting [...] 2022. Calcium 8.8 8.5 - 10.3 mg/dL [facility] Bilirubin, total 0.9 0.1 - 1.2 mg/dL [facility] Protein, pl 6.3(L) 6.5 - 8.5 g/dL [facility] Albumin 2.5(L) 3.5 - 5.0 g/dL [facility] Alk phos 51 40 - 130 Units/L [facility] ALT 45 7 - 55 Units/L [facility] AST 59(H) 10 - 50 Units/L [facility] Blood 02/21/2025 5:06 AM CDT 02/21/2025 5:26 AM CDT us Hood Pacheco MD LAB BLOOD ORDERABLES Final Resul t [facility] [place] [address] * XR Chest 1 View (02/21/2025 4:26 [...] it. Electronically signed by: Lynda Romano M.D. us Khalif Gonzalez MD IMG XR PROCEDURES Final Result * (ABNORMAL) POC Blood Gas and Chemistries, Venous - (02/21/2025 3:04 AM CDT) pH, Daniel POC 7.31(L) 7.32 - 7.43 pCO2, daniel POC 52(H) 40 - 50 mmHg [facility] pO2, daniel POC 48 mmHg [facility] Na, POC 128(L) 135 - 145 mmol/L [facility] K POC 4.1 3.3 - 4.9 mmol/L [facility] Comment: Interpretive Data Not all point of care methods assess for hemolysis. Confirm with instrument and retest K+ if not consistent with clinical signs and symptoms. Current Interpretive Data was last revised on 2024. Cl, POC 94(L) 97 - 110 mmol/L [facility] Ionized Ca, POC 3.98(L) 4.50 - 5.10 mg/dL [facility] Glucose, POC 150 70 - 199 mg/dL [facility] Lactate, POC 3.4(H) 0.7 - 2.0 mmol/L [facility] O2Hb, Daniel POC 77.0(L) 90.0 - 95.0 % [facility] COHb, Daniel POC 2.0 0.0 - 2.9 % [facility] MetHb, Daniel POC 0.4 0.0 - 1.9 % [facility] O2 Sat, Daniel POC (Annalisa) 79 % [facility] Base excess, POC -0.7 mmol/L [facility] HCO3, Daniel POC 26 20 - 30 mmol/L [facility] Hct, POC 35.0(L) 41.4 - 51.6 % [facility] Total Hb, POC 11.6(L) 13.8 - 17.2 g/dL [facility] Blood 02/21/2025 3:04 AM CDT 02/21/2025 3:04 AM CDT us Hood Pacheco MD LAB POCT ORDERABLES - DEVICE Fin al Result [facility] [place] [address] * [place] INSJ NON-TUNNELED CENTRAL VENOUS CATH AGE 5 YR/> (02/21/2025 1:30 AM CDT) Narrative Sanjiv Bishop MD - 02/21/2025 1:30 AM CDT Sanjiv Bishop MD 02/21/2025 9:03 AM Central Line Insertion Date/Time: 02/21/2025 1:30 AM Performed by: Reema Garcia MD Authorized by: Sanjiv Bishop MD [place] Protocol: RN Notified of Procedure: yes Patient's [...] Art POC 46(H) 35 - 45 mmHg [facility] pO2, Art POC 40(C) 83 - 108 mmHg [facility] Na, POC 127(L) 135 - 145 mmol/L [facility] K POC 4.8 3.3 - 4.9 mmol/L [facility] Comment: Interpretive Data Not all point of care methods assess for hemolysis. Confirm with instrument and retest K+ if not consistent with clinical signs and symptoms. Current Interpretive Data was last revised on 2024. Cl, POC 95(L) 97 - 110 mmol/L [facility] Ionized Ca, POC 4.06(L) 4.50 - 5.10 mg/dL [facility] Glucose, POC 91 70 - 199 mg/dL [facility] Lactate, POC 5.1(C) 0.7 - 2.0 mmol/L [facility] O2Hb, Art POC 69.5(C) 90.0 - 95.0 % [facility] COHb, Art POC 2.0 0.0 - 2.9 % [facility] MetHgb, Art POC 0.2 0.0 - 1.9 % [facility] SO2 (annalisa) arterial 71(L) 90 - 95 % [facility] Base excess, POC -2.6 mmol/L [facility] HCO3, Art POC 24 20 - 30 mmol/L [facility] Hct, POC 39.0(L) 41.4 - 51.6 % [facility] Total Hb, POC 12.9(L) 13.8 - 17.2 g/dL [facility] Blood 02/21/2025 1:08 AM CDT 02/21/2025 1:08 AM CDT us Hood Pacheco MD LAB POCT ORDERABLES - DEVICE Fin al Result [facility] [place] [address] * [place] ARTL CATHJ/CANNULJ MNTR/TRANSFUSION SPX PRQ (02/21/2025 1:00 AM CDT) Narrative Sanjiv Bishop MD - 02/21/2025 1:00 AM CDT Sanjiv Bishop MD 02/21/2025 9:03 AM Arterial Line Insertion Date/Time: 02/21/2025 1:00 AM Performed by: Reema Garcia MD Authorized by: Sanjiv Bishop MD [place] Protocol: RN Notified of Procedure: yes Patient's [...] 12:57 AM CDT) ABO Rh A Positive [facility] HCLL OTHER 02/21/2025 12:5 7 AM CDT 02/21/2025 12:57 AM CDT Hood Pacheco MD LAB BLOOD ORDERABLES Final Resul t [facility] [place] [address] [facility] * (ABNORMAL) Lactate (02/21/2025 12:12 AM CDT) Lactate 3.8(H) 0.7 - 2.0 mmol/L Blood 02/21/2025 12:1 2 AM CDT 02/21/2025 12:31 AM CDT Hood Pacheco MD LAB BLOOD ORDERABLES Final Resul t [facility] [place] [address] * ECG 12 lead (02/21/2025 12:08 AM CDT) Ventricular Rate EKG/Min [address] [facility] Atrial Rate [address] [facility] WY-Interval (MSEC) [address] [facility] QRS-Interval (MSEC) [address] [facility] QT-Interval (MSEC) [address] [facility] QTc [address] [facility] P [place]ber[place] [address] [facility] R Elberta -[address] [facility] T [place] [address] [facility] Diagnosis Sinus tachycardia with frequent Premature ventricular complexes Left bundle branch block Abnormal ECG When compared with ECG of 06-APR-2007 06:22, Premature ventricular complexes are now Present Left bundle branch block is now Present Confirmed by FACUNDO ALLEN M.D ([id number]) on 02/21/2025 7:25:34 PM [facility] 02/21/2025 12:0 8 AM CDT 02/21/2025 7:25 PM CDT Hood Pacheco MD ECG ORDERABLES Final Result [facility] * Type and screen (02/21/2025 12:06 AM CDT) ABO Rh A Positive Kp, indirect Negative [facility] Blood 02/21/2025 12:0 6 AM CDT 02/21/2025 12:43 AM CDT Hood Pacheco MD LAB BLOOD BANK TEST ORDERABLES F inal Result Performing Organization Address [facility] Co de Phone Number [facility] [place] [address] * Infection Prevention MRSA Only (Staphylococcus aureus) Culture Nasal (02/21/2025 12:06 AM CDT) Report Final Report: Negative Nasal 02/21/2025 12:0 6 AM CDT 02/21/2025 12:24 AM CDT Narrative [facility] 02/22/2025 3:20 AM CDT Testing performed by [facility] ([phone]). Hood Pacheco MD LAB MICROBIOLOGY - GENERAL ORDER MICHELLE Final Result Performing Organization Address [facility] de Phone Number [facility] [place] [address] * [place] CRITICAL CARE ILL/INJURED PATIENT INIT 30-74 MIN (02/20/2025 10:51 PM CDT) Narrative Ivet Hawk MD - 02/20/2025 10:51 PM CDT Ivet Hawk MD 02/20/2025 10:53 PM Critical Care Performed by: Ivet Hawk MD Authorized by: Ivet Hawk MD Critical care provider statement: As reflected [...] and discussed management with the admitting team. Ivet Hawk MD IN CLINIC/BEDSIDE ORDERABLE S Final Result [...] PM CDT 02/20/2025 9:38 PM CDT Ivet Hawk MD LAB BLOOD ORDERABLES Final Result [facility] [place] [address] * (ABNORMAL) Pro B-type natriuretic peptide (02/20/2025 [...] CDT 02/20/2025 9:38 PM CDT us Ivet Hawk MD LAB BLOOD ORDERABLES Final Result [facility] Department [place] [address] * (ABNORMAL) CBC with auto differential (02/20/2025 9:27 PM CDT) Pathologist [facility] WBC 6.7 3.8 - 9.9 K/cumm Hgb 11.7(L) 13.0 - 17.5 g/dL [facility] Hct 34.5(L) 38.9 - 50.3 % [facility] Plt 78(L) 150 - 400 K/cumm [facility] MPV 12.0 9.1 - 12.3 fL [facility] RBC 3.66(L) 4.30 - 5.80 M/cumm [facility] MCV 94.3 81.3 - 96.4 fL [facility] MCH 32.0 27.1 - 33.3 pg [facility] MCHC 33.9 32.3 - 35.7 g/dL [facility] RDW CV 15.3(H) 11.1 - 14.9 % [facility] RDW SD 52.7(H) 35.7 - 48.1 fL [facility] NRBC abs 0.00 0.00 - 0.01 K/cumm [facility] Blood 02/20/2025 9:27 PM CDT 02/20/2025 9:39 PM CDT us Ivet Hawk MD LAB BLOOD ORDERABLES Final Result [facility] [place] [address] * (ABNORMAL) Manual Differential (02/20/2025 9:27 PM CDT) Differential Manual Cells Counted 141 [facility] Neutrophil abs 5.0 1.5 - 6.5 K/cumm [facility] Imm gran abs 0.8(H) 0.0 - 0.1 K/cumm [facility] Lymphocyte abs 0.4(L) 0.8 - 3.3 K/cumm [facility] Monocyte abs 0.4 0.2 - 0.8 K/cumm [facility] Neutrophil pct 75.2 % [facility] Comment: Interpretive Data Percent cell count reference ranges are not reported, since discordance with absolute values may lead to misinterpretation of CBC data. Current Interpretive Data was last revised on 2018. Lymphocyte pct 4.3 % [facility] Comment: Interpretive Data Percent cell count reference ranges are not reported, since discordance with absolute values may lead to misinterpretation of CBC data. Current Interpretive Data was last revised on 2018. Monocyte pct 6.4 % [facility] Comment: Interpretive Data Percent cell count reference ranges are not reported, since discordance with absolute values may lead to misinterpretation of CBC data. Current Interpretive Data was last revised on 2018. Metamyelocyte pct 7.8(H) 0.0 - 0.0 % [facility] Myelocyte pct 3.5(H) 0.0 - 0.0 % [facility] Promyelocyte pct 1.4(H) 0.0 - 0.0 % [facility] Variant lymph pct 1.4(H) 0.0 - 0.0 % [facility] Blood 02/20/2025 9:27 PM CDT 02/20/2025 9:44 PM CDT Ivet Hawk MD LAB BLOOD ORDERABLES Final Result [facility] [place] [address] * (ABNORMAL) Basic metabolic panel (02/20/2025 9:27 PM CDT) Sodium 129(L) 135 - 145 mmol/L Potassium, pl 4.5 3.3 - 4.9 mmol/L [facility] Chloride 92(L) 97 - 110 mmol/L [facility] CO2 24 22 - 32 mmol/L [facility] Anion gap 13 2 - 15 mmol/L [facility] BUN 48(H) 6 - 25 mg/dL [facility] Creatinine 1.84(H) 0.80 - 1.30 mg/dL [facility] Glucose 81 70 - 199 mg/dL [facility] Comment: Interpretive Data Fasting [...] 2022. Calcium 7.7(L) 8.5 - 10.3 mg/dL [facility] Blood 02/20/2025 9:27 PM CDT 02/20/2025 9:38 PM CDT Ivet Hawk MD LAB BLOOD ORDERABLES Final Result [facility] [place] [address] * (ABNORMAL) Lactate (02/20/2025 8:50 PM CDT) Lactate 4.9(C) 0.7 - 2.0 mmol/L Blood 02/20/2025 8:50 PM CDT 02/20/2025 9:00 PM CDT Divine Weiss NP LAB BLOOD ORDERABLES Final Res ult [facility] [place] [address] * Critical Result Callback Chemistry (02/20/2025 8:50 PM CDT) Date Notified 20250220 Time Notified 2134 [facility] TestName Lactate [facility] Called/Read Back Buck LARIOS Credentials MD [facility] Called By CHRIST LARIOS Blood 02/20/2025 8:50 PM CDT 02/20/2025 9:00 PM CDT Divine Weiss NP LAB BLOOD ORDERABLES Final Res ult [facility] [place] [address] * POCUS Thoracic (Lung Ultrasound) (02/20/2025 8:23 [...] with the findings. Electronically signed by IVET HAWK on Tuesday, February 25, 2025 at 3:49 PM I have reviewed the images & the resident's interpretation. I agree with the findings. Procedure Note Ivet Hawk MD - 02/25/2025 Performed by: Buck Carey [...] agree withthe findings. Electronically signed by IVET HAWK on Tuesday, February 25, 2025 at3:49 PM I have reviewed the images & the resident's interpretation. I agree withthe findings. us Ivet Hawk MD POCUS ORDERABLES Final Resu lt * [...] with the findings. Electronically signed by IVET HAWK on Tuesday, February 25, 2025 at 3:50 PM I have reviewed the images & the resident's interpretation. I agree with the findings. Procedure Note Ivet Hawk MD - 02/25/2025 Performed by: Buck Carey [...] agree withthe findings. Electronically signed by IVET HAWK on Tuesday, February 25, 2025 at3:50 PM I have reviewed the images & the resident's interpretation. I agree withthe findings. Ivet Hawk MD POCUS ORDERABLES Final Resu lt * (ABNORMAL) POCT lactate (02/20/2025 7:45 PM CDT) Lactate POC i-STAT 3.8(H) 0.7 - 2.0 mmol/L Blood 02/20/2025 7:45 PM CDT 02/20/2025 7:45 PM CDT us Ivet Hawk MD LAB POCT ORDERABLES - DEVIC E Final Result [facility] [place] [address] * (ABNORMAL) ECG 12-LEAD (02/20/2025 7:35 PM CDT) Narrative [facility] - 02/20/2025 7:35 PM CDT Gisela Camejo [...] Camejo MD ECG ORDERABLES Asya l Result [facility] * POCT glucose (02/20/2025 7:13 PM CDT) Glucose, POC 82 70 - 199 mg/dL Blood 02/20/2025 7:13 PM CDT 02/20/2025 7:13 PM CDT Hood Pacheco MD LAB POCT ORDERABLES - DEVICE Fin al Result Performing Organization Address [facility] Co de Phone Number [facility] [place] [place] [address] * POCT glucose (02/20/2025 3:45 PM CDT) Glucose, POC 90 70 - 199 mg/dL Blood 02/20/2025 3:45 PM CDT 02/20/2025 3:45 PM CDT Hood Pacheco MD LAB POCT ORDERABLES - DEVICE Fin al Result Performing Organization Address [facility] Co de Phone Number [facility] [place] [address] * (ABNORMAL) Lactate (02/20/2025 3:42 PM CDT) Lactate 5.0(C) 0.7 - 2.0 mmol/L Blood 02/20/2025 3:42 PM CDT 02/20/2025 3:50 PM CDT us Divine Weiss NP LAB BLOOD ORDERABLES Final Res ult Performing Organization Address [facility] Co de Phone Number [facility] [place] [address] * (ABNORMAL) eGFR (02/20/2025 3:42 PM CDT) [...] PM CDT 02/20/2025 3:50 PM CDT Divine Weiss NP LAB BLOOD ORDERABLES Final Res ult Performing Organization Address [facility] Co de Phone Number [facility] [place] [address] * Critical Result Callback Chemistry (02/20/2025 3:42 PM CDT) Date Notified 20250220 Time Notified 1627 [facility] TestName Mirta LARIOS Called/Read Back Esha LARIOS Credentials ARIELLE LARIOS Called By PD [facility] Blood 02/20/2025 3:42 PM CDT 02/20/2025 3:50 PM CDT us Divine Weiss NP LAB BLOOD ORDERABLES Final Res ult [facility] [place] [address] * (ABNORMAL) Basic metabolic panel (02/20/2025 3:42 PM CDT) Sodium 128(L) 135 - 145 mmol/L Potassium, pl 4.2 3.3 - 4.9 mmol/L [facility] Chloride 90(L) 97 - 110 mmol/L [facility] CO2 24 22 - 32 mmol/L [facility] Anion gap 14 2 - 15 mmol/L [facility] BUN 42(H) 6 - 25 mg/dL [facility] Creatinine 1.71(H) 0.80 - 1.30 mg/dL [facility] Glucose 88 70 - 199 mg/dL [facility] Comment: Interpretive Data Fasting [...] 2022. Calcium 7.8(L) 8.5 - 10.3 mg/dL [facility] Blood 02/20/2025 3:42 PM CDT 02/20/2025 3:50 PM CDT us Divine Weiss NP LAB BLOOD ORDERABLES Final Res ult [facility] [place] [address] * POCT glucose (02/20/2025 1:52 PM CDT) Glucose, POC 81 70 - 199 mg/dL Blood 02/20/2025 1:52 PM CDT 02/20/2025 1:52 PM CDT Hood Pacheco MD LAB POCT ORDERABLES - DEVICE Fin al Result Performing Organization Address [facility] de Phone Number [facility] [place] [address] * POCT glucose (02/20/2025 11:59 AM CDT) Glucose, POC 112 70 - 199 mg/dL Blood 02/20/2025 11:5 9 AM CDT 02/20/2025 11:59 AM CDT Hood Pacheco MD LAB POCT ORDERABLES - DEVICE Fin al Result Performing Organization Address [facility] Phone Number [facility] [place] [address] * (ABNORMAL) POCT glucose (02/20/2025 11:09 AM CDT) Glucose, POC 52(C) 70 - 199 mg/dL Comment:Glu2: RN/MD Notified Glucose comment 1 Glu2: RN/MD Notified [facility] Blood 02/20/2025 11:0 9 AM CDT 02/20/2025 11:09 AM CDT Hood Pacheco MD LAB POCT ORDERABLES - DEVICE Fin al Result Performing Organization Address [facility] de Phone Number [facility] [place] [address] * XR Abdomen Ap 1 Vw (02/20/2025 [...] signed by: Anton Petersen M.D., MPH Divine Weiss 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 IMG XR PROCEDURES Final Result * (ABNORMAL) POCT glucose (02/20/2025 10:28 AM CDT) Glucose, POC 46(C) 70 - 199 mg/dL Comment:Glu2: WALDEMAR Notified Glucose comment 1 Glu2: WALDEMAR Notified [facility] Blood 02/20/2025 10:2 8 AM CDT 02/20/2025 10:28 AM CDT Hood Pacheco MD LAB POCT ORDERABLES - DEVICE Fin al Result Performing Organization Address City/State/[facility] Co de Phone Number [facility] [place] [address] * (ABNORMAL) POCT glucose (02/20/2025 9:13 AM CDT) Glucose, POC 49(C) 70 - 199 mg/dL Comment:Glu2: WALDEMAR Notified Glucose comment 1 Glu2: WALDEMAR Notified [facility] Blood 02/20/2025 9:13 AM CDT 02/20/2025 9:13 AM CDT Hood Pacheco MD LAB POCT ORDERABLES - DEVICE Fin al Result Performing Organization Address [facility] de Phone Number [facility] [place] [address] * (ABNORMAL) POCT glucose (02/20/2025 9:10 AM CDT) Glucose, POC 51(C) 70 - 199 mg/dL Comment: Glu2: Critical Value Noted RN/MD Notified Glucose comment 2 RN/MD Notified [facility] Blood 02/20/2025 9:10 AM CDT 02/20/2025 9:10 AM CDT Hood Pacheco MD LAB POCT ORDERABLES - DEVICE Fin al Result Performing Organization Address [facility] de Phone Number [facility] [place] [address] * (ABNORMAL) Sepsis Lactate w/ Reflex (02/20/2025 8:49 AM CDT) Sepsis Lactate 4.7(C) 0.7 - 2.0 mmol/L Blood 02/20/2025 8:49 AM CDT 02/20/2025 9:17 AM CDT Sidney Malik MD LAB BLOOD ORDERABLES Fin al Result Performing Organization Address [facility] de Phone Number [facility] [place] [address] * (ABNORMAL) Lactate (02/20/2025 8:49 AM CDT) Lactate 4.7(C) 0.7 - 2.0 mmol/L Blood 02/20/2025 8:49 AM CDT 02/20/2025 9:26 AM CDT Divine Weiss NP LAB BLOOD ORDERABLES Final Res ult Performing Organization Address [facility] Co de Phone Number [facility] [place] [address] * (ABNORMAL) eGFR (02/20/2025 8:49 AM CDT) [...] AM CDT 02/20/2025 9:26 AM CDT Divine Weiss 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 LAB BLOOD ORDERABLES Final Res ult Performing Organization Address [facility] Co de Phone Number [facility] [place] [address] * Critical Result Callback Chemistry (02/20/2025 8:49 AM CDT) Date Notified 20250220 Time Notified 1016 [facility] NIC[facility] TestName Glucose [facility] Called/Read Back Prakash NICOLAS Credentials RN [facility] NICOL[facility] Called By PARISH LARIOS Blood 02/20/2025 8:49 AM CDT 02/20/2025 9:26 AM CDT Divine Weiss 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 LAB BLOOD ORDERABLES Final Res ult Performing Organization Address [facility] Co de Phone Number [facility] [place] [address] * Critical Result Callback Chemistry (02/20/2025 8:49 AM CDT) Date Notified 20250220 Time Notified 956 [facility] TestName Lactate [facility] Called/Read Back Samm CHEEK [facility] Credentials RN [facility] Called By [facility] Blood 02/20/2025 8:49 AM CDT 02/20/2025 9:26 AM CDT Divine Weiss 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 LAB BLOOD ORDERABLES Final Res ult Performing Organization Address [facility] Co de Phone Number [facility] [place] [address] * Critical Result Callback Chemistry (02/20/2025 8:49 AM CDT) Date Notified 20250220 Time Notified 922 [facility] TestName Sepsis Lactate [facility] Called/Read Back Samm CHEEK [facility] Credentials RN [facility] Called By [facility] Blood 02/20/2025 8:49 AM CDT 02/20/2025 9:17 AM CDT Sidney Malik MD LAB BLOOD ORDERABLES Fin al Result Performing Organization Address [facility] Co de Phone Number [facility] [place] [address] * Urea nitrogen, urine, random (02/20/2025 8:49 AM CDT) Urea nitrogen, ur 294 mg/dL Comment: Interpretive Data No reference range established. Current interpretive data was last revised 2019. Urine 02/20/2025 8:49 AM CDT 02/20/2025 9:27 AM CDT Hood Pacheco MD LAB URINE ORDERABLES Final Resul t Performing Organization Address [facility] Co de Phone Number [facility] [place] [address] * (ABNORMAL) Protein / creatinine ratio, urine, random (02/20/2025 8:49 AM CDT) Protein, ur, quant 63.9 mg/dL Comment: Interpretive Data No reference range established. Current interpretive data was last revised 2019. Creatinine Ur 255.6 mg/dL [facility] Comment: Interpretive Data No reference range established. Current interpretive data was last revised 2019. Protein/creatinin e ratio 250.0(H) 0.0 - 180.0 mg/g CR [facility] Urine 02/20/2025 8:49 AM CDT 02/20/2025 9:27 AM CDT Divine Weiss NP LAB URINE ORDERABLES Final Res ult Performing Organization Address [facility] [place] [address] * Hepatitis panel, acute Blood (02/20/2025 8:49 AM CDT) Hep A IgM Nonreactive Nonreactive Hep B core IgM Nonreactive Nonreactive [facility] Hep C Ab Nonreactive Nonreactive [facility] Comment:Antibodies to HCV no t detected. Does NOT exclude the possibility of recent exposure to HCV. Current interpretive data was last revised on 22 HepBsAg Nonreactive Nonreactive [facility] Blood 02/20/2025 8:49 AM CDT 02/20/2025 9:26 AM CDT Divine Weiss 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 LAB MICROBIOLOGY - GENERAL ORD ERABLES Final Result Performing Organization Address [facility] [place] [address] * Sodium, urine, random (02/20/2025 8:49 AM CDT) Sodium, ur <20 mmol/L Comment: Repeated and Verified Interpretive Data No reference range established. Current interpretive data was last revised 2019. Urine 02/20/2025 8:49 AM CDT 02/20/2025 9:27 AM CDT Divine Weiss 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 LAB URINE ORDERABLES Final Res ult Performing Organization Address [facility] de Phone Number [facility] [place] [address] * Osmolality, urine (02/20/2025 8:49 AM CDT) Osmo, ur 362 mOsm/kg Urine 02/20/2025 8:49 AM CDT 02/20/2025 9:27 AM CDT Divine Weiss 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 LAB URINE ORDERABLES Final Res ult Performing Organization Address [facility] de Phone Number [facility] [place] [address] * Creatinine, urine, random (02/20/2025 8:49 AM CDT) Creatinine Ur 255.6 mg/dL Comment: Interpretive Data No reference range established. Current interpretive data was last revised 2019. Urine 02/20/2025 8:49 AM CDT 02/20/2025 9:27 AM CDT Divine Weiss NP LAB URINE ORDERABLES Final Res ult Performing Organization Address [facility] Co de Phone Number [facility] [place] [address] * aPTT (02/20/2025 8:49 AM CDT) aPTT 37 28 - 38 sec Comment: Interpretive Data Heparin therapeutic range: 66.0 - 100.0 seconds. Range based on correlation with therapeutic heparin activity range of 0.3 - 0.7 Units/mL. Current interpretive data was last revised on 2023. Blood 02/20/2025 8:49 AM CDT 02/20/2025 9:20 AM CDT Divine Weiss 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 LAB BLOOD ORDERABLES Final Res ult Performing Organization Address [facility] de Phone Number [facility] [place] [address] * (ABNORMAL) Protime-INR (02/20/2025 8:49 AM CDT) PT 21.6(H) 9.7 - 13.0 sec INR 1.97(H) 0.90 - 1.20 [facility] Comment: Interpretive data Oral anticoagulant therapeutic ranges: Venous thromboembolism prophylaxis or treatment: 2.0-3.0 CARDIOLOGY Standard range: 2.0-3.0 High-intensity range: 2.5-3.5 Refer to indication-specific guidelines for appropriate target ranges for prosthetic heart valve replacement. Current interpretive data was last revised on 2019. Blood 02/20/2025 8:49 AM CDT 02/20/2025 9:20 AM CDT Divine Weiss 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 LAB BLOOD ORDERABLES Final Res ult Performing Organization Address [facility] Co de Phone Number [facility] [facility] [place] [address] * (ABNORMAL) CBC without differential (02/20/2025 8:49 AM CDT) WBC 2.8(L) 3.8 - 9.9 K/cumm Hgb 11.8(L) 13.0 - 17.5 g/dL [facility] Hct 35.2(L) 38.9 - 50.3 % [facility] Plt 76(L) 150 - 400 K/cumm [facility] MPV 12.3 9.1 - 12.3 fL [facility] RBC 3.75(L) 4.30 - 5.80 M/cumm [facility] MCV 93.9 81.3 - 96.4 fL [facility] MCH 31.5 27.1 - 33.3 pg [facility] MCHC 33.5 32.3 - 35.7 g/dL [facility] RDW CV 15.4(H) 11.1 - 14.9 % [facility] RDW SD 53.0(H) 35.7 - 48.1 fL [facility] NRBC abs 0.00 0.00 - 0.01 K/cumm [facility] Blood 02/20/2025 8:49 AM CDT 02/20/2025 9:26 AM CDT Divine Weiss 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 LAB BLOOD ORDERABLES Final Res ult Performing Organization Address [facility] Co de Phone Number [facility] [place] [address] * Osmolality, blood (02/20/2025 8:49 AM CDT) Pathologist [facility] Osmo 282 275 - 300 mOsm/kg Blood 02/20/2025 8:49 AM CDT 02/20/2025 9:25 AM CDT Divine Weiss 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 LAB BLOOD ORDERABLES Final Res ult Performing Organization Address [facility] Co de Phone Number [facility] [place] [address] * Magnesium (02/20/2025 8:49 AM CDT) Magnesium 1.6 1.4 - 2.5 mg/dL Blood 02/20/2025 8:49 AM CDT 02/20/2025 9:26 AM CDT Hood Pacheco MD LAB BLOOD ORDERABLES Final Resul t [facility] [place] [address] * (ABNORMAL) Bilirubin, direct (02/20/2025 8:49 AM CDT) Bilirubin, direct 0.6(H) 0.1 - 0.3 mg/dL Blood 02/20/2025 8:49 AM CDT 02/20/2025 9:26 AM CDT Divine Weiss NP LAB BLOOD ORDERABLES Final Res ult Performing Organization Address [facility] Co de Phone Number [facility] [place] [address] * (ABNORMAL) Lipid panel (02/20/2025 8:49 AM [...] revised on 2018. Triglycerides 131 <=149 mg/dL [facility] Comment: Interpretive Data Ages [...] on 2018. HDL 21(L) >=40 mg/dL [facility] Comment: Interpretive Data Ages < or [...] 2018. LDL, calculated 43 <=129 mg/dL [facility] Comment: Interpretive Data Ages < or [...] revised on 2024. Non-HDL Cholesterol 67 mg/dL [facility] Comment: Interpretive Data Ages [...] last revised on 2018. Chol/HDL ratio 4 [facility] Blood 02/20/2025 8:49 AM CDT 02/20/2025 9:26 AM CDT Narrative [facility] - 02/20/2025 4:02 PM CDT Reflex us Hood Pacheco MD LAB BLOOD ORDERABLES Final Resul t [facility] [place] [address] * (ABNORMAL) Comprehensive metabolic panel (02/20/2025 8:49 AM CDT) Sodium 131(L) 135 - 145 mmol/L Potassium, pl 3.9 3.3 - 4.9 mmol/L [facility] Chloride 93(L) 97 - 110 mmol/L [facility] CO2 25 22 - 32 mmol/L [facility] Anion gap 13 2 - 15 mmol/L [facility] BUN 37(H) 6 - 25 mg/dL [facility] Creatinine 1.82(H) 0.80 - 1.30 mg/dL [facility] Glucose 47(C) 70 - 199 mg/dL [facility] Comment: Glycolysis suspected; suggest [...] 2022. Calcium 7.7(L) 8.5 - 10.3 mg/dL [facility] Bilirubin, total 1.2 0.1 - 1.2 mg/dL [facility] Protein, pl 6.9 6.5 - 8.5 g/dL [facility] Albumin 3.1(L) 3.5 - 5.0 g/dL [facility] Alk phos 52 40 - 130 Units/L [facility] ALT 44 7 - 55 Units/L [facility] AST 71(H) 10 - 50 Units/L [facility] Blood 02/20/2025 8:49 AM CDT 02/20/2025 9:26 AM CDT us Divine Weiss 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 LAB BLOOD ORDERABLES Final Res ult [facility] [place] [address] * (ABNORMAL) Urinalysis reflex to microscopic (02/20/2025 7:59 AM CDT) Color, ur Rina Yellow Clarity, ur Cloudy(A) Clear [facility] Specific gravity, ur 1.023 1.003 - 1.030 [facility] pH, urine 5.5 [facility] Comment: Interpretive Data U rine pH is affected by diet, medications, systemic acid-base disturbances, and renal tubular function. pH may affect urinary stone formation. For example, urine pH below 6.0 may help reduce the tendency for calcium phosphate stones and pH greater than 6.0 may reduce the tendency for uric acid stone formation. Source: [facility] [employer] Current Interpretive Data was last revised on 2017 Protein, ur ql 1+(A) Negative [facility] Glucose, ur ql Negative Negative [facility] Ketones, ur Negative Negative [facility] Bilirubin, ur Negative Negative [facility] Blood, ur Negative Negative [facility] Urobilinogen, ur <2.0 <2.0 mg/dL [facility] Nitrite, ur Negative Negative [facility] Leukocyte esterase, ur Negative Negative [facility] UA reflex comment Reflex to microscopic UA will be performed. [facility] Urine 02/20/2025 7:59 AM CDT 02/20/2025 8:09 AM CDT us Marc Vasquez MD PhD LAB URINE ORDERABLE S Final Result Performing Organization Address [facility] Co de Phone Number [facility] [place] [address] * Legionella antigen Urine (02/20/2025 7:59 AM CDT) Legionella Ag Negative Negative Comment: Interpretive Data This test detects only Legionella pneumophila serogroup 1 antigen. Testing performed by [facility] ([phone]). Current interpretive data was last revised on 2020. Urine 02/20/2025 7:59 AM CDT 02/20/2025 8:11 AM CDT us Facundo Butt 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 LAB MICROBIOLOGY - GENER AL ORDERABLES Final Result Performing Organization Address City/[facility] Co de Phone Number [facility] [place] [address] * (ABNORMAL) Urinalysis, microscopic only (02/20/2025 7:59 AM CDT) WBC, ur 0-5 0 - 5 /HPF RBC, ur 0-2 0 - 2 /HPF [facility] Epithelial cells, squamous, ur 1-5 0 - 5 /HPF [facility] Bacteria, ur Trace(A) [facility] Yeast, ur TRACE [facility] Mucous, ur Present(A) [facility] Hyaline casts, ur >50(A) 0 - 10 /LPF [facility] Urine 02/20/2025 7:59 AM CDT 02/20/2025 8:09 AM CDT Marc Vasquez MD PhD LAB URINE ORDERABLE S Final Result Performing Organization Address [facility] Co de Phone Number [facility] [place] [address] * (ABNORMAL) Sepsis Lactate w/ Reflex (02/20/2025 5:25 AM CDT) Sepsis Lactate 3.6(H) 0.7 - 2.0 mmol/L Blood 02/20/2025 5:25 AM CDT 02/20/2025 5:29 AM CDT us Sidney Malik MD LAB BLOOD ORDERABLES Fin al Result Performing Organization Address [facility] Co de Phone Number [facility] [place] [place] [address] * POCT glucose (02/20/2025 2:17 AM CDT) Glucose, POC 103 70 - 199 mg/dL Blood 02/20/2025 2:17 AM CDT 02/20/2025 2:17 AM CDT us Marc Vasquez MD PhD LAB POCT ORDERABLES - DEVICE Final Result Performing Organization Address [facility] Co de Phone Number [facility] [place] [address] * (ABNORMAL) Sepsis Lactate w/ Reflex (02/20/2025 1:53 AM CDT) Sepsis Lactate 6.4(C) 0.7 - 2.0 mmol/L Blood 02/20/2025 1:53 AM CDT 02/20/2025 2:03 AM CDT us Sidney Malik MD LAB BLOOD ORDERABLES Fin al Result Performing Organization Address City/[facility] Co de Phone Number [facility] [place] [address] * Critical Result Callback Chemistry (02/20/2025 1:53 AM CDT) Date Notified 20250220 Time Notified 212 [facility] TestName Sepsis Lactate [facility] Called/Read Back Sidney CHEEK [facility] Credentials MD [facility] Called By TRAE CHEEK [facility] Blood 02/20/2025 1:53 AM CDT 02/20/2025 2:03 AM CDT us Sidney Malik MD LAB BLOOD ORDERABLES Fin al Result Performing Organization Address [facility] Co de Phone Number [facility] [place] [address] * (ABNORMAL) POCT glucose (02/20/2025 12:07 AM CDT) Glucose, POC 55(L) 70 - 199 mg/dL Blood 02/20/2025 12:0 7 AM CDT 02/20/2025 12:07 AM CDT us Marc Vasquez MD PhD LAB POCT ORDERABLES - DEVICE Final Result Performing Organization Address [facility] Co de Phone Number [facility] [place] [address] * (ABNORMAL) POCT glucose (02/19/2025 11:41 PM CDT) Glucose, POC 58(L) 70 - 199 mg/dL Blood 02/19/2025 11:4 1 PM CDT 02/19/2025 11:41 PM CDT us Marc Vasquez MD PhD LAB POCT ORDERABLES - DEVICE Final Result Performing Organization Address [facility] [place] [address] * (ABNORMAL) Troponin I high-sensitivity 6-hour (02/19/2025 9:58 PM CDT) Trop I hs 116(H) <=35 ng/L Comment: Interpretive Data For further hscTnI resources including the diagnostic algorithm and an aid in interpretation, copy and paste this link: https://Vivify Healthhlab.[employer].org/show/hsTrop-1 Current Interpretive Data last revised 2020. Trop I hs delta See Comment ng/L [facility] Comment:Inappropriate collec tion time to report a delta. Trop I hs pct delta See Comment % [facility] Comment:Inappropriate collec tion time to report a delta. Trop I hs interp See Comment [facility] Comment:Inappropriate collec tion time to report a delta. Blood 02/19/2025 9:58 PM CDT 02/19/2025 10:19 PM CDT us Idalia Calderón MD LAB BLOOD ORDERABLES Final Result Performing Organization Address [facility] Co de Phone Number [facility] [place] [address] * (ABNORMAL) Troponin I high-sensitivity 4-hour (02/19/2025 9:58 PM CDT) Trop I hs 99(H) <=35 ng/L Comment: Interpretive Data For further hscTnI resources including the diagnostic algorithm and an aid in interpretation, copy and paste this link: https://Viv[employer] Healthhlab.[employer].org/show/hsTrop-1 Current Interpretive Data last revised 2020. Trop I hs delta See Comment ng/L [facility] Comment:Inappropriate collec tion time to report a delta. Trop I hs pct delta See Comment % [facility] Comment:Inappropriate collec tion time to report a delta. Trop I hs interp See Comment [facility] Comment:Inappropriate collec tion time to report a delta. Blood 02/19/2025 9:58 PM CDT 02/19/2025 10:19 PM CDT Idalia Calderón MD LAB BLOOD ORDERABLES Final Result Performing Organization Address [facility] Co de Phone Number [facility] [place] [address] * (ABNORMAL) Troponin I high-sensitivity 2-hour (02/19/2025 9:58 PM CDT) Pathologist [facility] Trop I hs 99(H) <=35 ng/L Comment: Interpretive Data For further hscTnI resources including the diagnostic algorithm and an aid in interpretation, copy and paste this link: https://bjhlab.testcatalog.org/show/hsTrop-1 Current Interpretive Data last revised 2020. Trop I hs pct delta -20(C) % [facility] Trop I hs interp Significa nt(C) [facility] Blood 02/19/2025 9:58 PM CDT 02/19/2025 10:19 PM CDT us Idalia Calderón MD LAB BLOOD ORDERABLES Final Result Performing Organization Address [facility] Co de Phone Number [facility] [place] [address] * (ABNORMAL) Lactate (02/19/2025 9:58 PM CDT) Pathologist [facility] Lactate 5.9(C) 0.7 - 2.0 mmol/L Blood 02/19/2025 9:58 PM CDT 02/19/2025 10:19 PM CDT us Sidney Malik MD LAB BLOOD ORDERABLES Fin al Result Performing Organization Address [facility]/ZIP Co de Phone Number [facility] [place] [address] * Critical result callback Cardio chemistry (02/19/2025 9:58 PM CDT) Date Notified 20250219 Time Notified 230. [facility] Test name Trop I hs 2hr p [facility] Called/Read Back Sidney NICOLAS Credentials MD [facility] Called By TRAE NICOLAS Blood 02/19/2025 9:58 PM CDT 02/19/2025 10:19 PM CDT us Idalia Calderón MD LAB BLOOD ORDERABLES Final Result Performing Organization Address [facility]/ZIP Co de Phone Number [facility] [place] [address] * Critical Result Callback Chemistry (02/19/2025 9:58 PM CDT) Date Notified 20250219 Time Notified 2244 [facility] TestName Lactate [facility] Called/Read Back Abraham CHEEK [facility] Credentials ARIELLE CHEEK [facility] Called By scott CHEEK [facility] Blood 02/19/2025 9:58 PM CDT 02/19/2025 10:19 PM CDT us Sidney Malik MD LAB BLOOD ORDERABLES Fin al Result [facility] [place] [address] * Respiratory pathogen panel Nasopharyngeal (02/19/2025 9:58 PM CDT) Influenza A RNA Not Detected Not Detected Influenza B RNA Not Detected Not Detected [facility] RSV RNA Not Detected Not Detected [facility] COVID-19 RNA Not Detected Not Detected [facility] Coronavirus 229E RNA Not Detected Not Detected [facility] Coronavirus HKU1 RNA Not Detected Not Detected [facility] Coronavirus NL63 RNA Not Detected Not Detected [facility] Coronavirus OC43 RNA Not Detected Not Detected [facility] Adenovirus DNA Not Detected Not Detected [facility] Metapneumovirus RNA Not Detected Not Detected [facility] Rhinovirus/Enterov irus RNA Not Detected Not Detected [facility] Parainfluenza 1 RNA Not Detected Not Detected [facility] Parainfluenza 2 RNA Not Detected Not Detected [facility] Parainfluenza 3 RNA Not Detected Not Detected [facility] Parainfluenza 4 RNA Not Detected Not Detected [facility] B. pertussis DNA Not Detected Not Detected [facility] B. parapertussis DNA Not Detected Not Detected [facility] C. pneumoniae DNA Not Detected Not Detected [facility] M. pneumoniae DNA Not Detected Not Detected [facility] Nasopharyngeal 02/19/2025 9: 58 PM CDT 02/19/2025 10:25 PM CDT Narrative [facility] - 02/19/2025 11:25 PM CDT Is the Patient experiencing symptoms consistent with COVID?->Unknown Surveillance testing for transplant patient?->No Interpretive Data The coComment FilmArray Respiratory Panel (RP2.1) assay is a [...] assay has FDA clearance for testing of 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 swabs. The performance of additional specimen types has been assessed by the performing laboratory. The performance characteristics of this assay have been determined by [facility] Molecular Infectious Disease Laboratory. Current interpretive data was last revised on 22. us Sidney Malik MD LAB MICROBIOLOGY - [facility] ORDERABLES Final Result [facility] [place] [address] * Blood culture Blood Peripheral (02/19/2025 9:58 PM CDT) Report Final Report: No growth Blood (Peripheral) 02/19/2025 9:58 PM CDT 02/19/2025 10:27 PM CDT [facility] - 02/24/2025 7:01 AM CDT From [...] performance characteristics have been verified by the [facility] Microbiology [facility]. For questions about this culture, contact the Microbiology Laboratory at [phone]. Interpretive data was last revised on 24. us Sidney Malik MD LAB MICROBIOLOGY - GENER AL ORDERABLES Final Result [facility] [place] [address] * Blood culture Blood Peripheral (02/19/2025 9:58 PM CDT) Report Final Report: No growth Blood (Peripheral) 02/19/2025 9:58 PM CDT 02/19/2025 10:27 PM CDT [facility] - 02/24/2025 7:01 AM CDT Draw [...] performance characteristics have been verified by the [facility]biology [facility]. For questions about this culture, contact the Microbiology Laboratory at [phone]. Interpretive data was last revised on 24. Sidney Malik MD LAB MICROBIOLOGY - GENER AL ORDERABLES Final Result Performing Organization Address [facility] de Phone Number [facility] [place] [address] * Blood gas, venous (02/19/2025 9:58 PM CDT) pH, Venous 7.33 7.32 - 7.43 PCO2, Venous 47 40 - 50 mmHg [facility] PO2, Venous 49 mmHg [facility] Comment: Interpretive Data No Reference Range Established Current Interpretive Data was last revised on 2018. HCO3 Venous, Calculated 25 20 - 30 mmol/L [facility] BE, venous -2 mmol/L [facility] Comment: Interpretive Data No Reference Range Established Current Interpretive Data was last revised on 2018. Blood 02/19/2025 9:58 PM CDT 02/19/2025 10:13 PM CDT Sidney Malik MD LAB BLOOD ORDERABLES Fin al Result Performing Organization Address [facility] de Phone Number [facility] [place] [address] * XR Chest PA Lateral 2 Views [...] Electronically signed by: Anton Petersen M.D., MPH Sidney Malik MD IMG XR PROCEDURES Final Result * [place] [facility] ILL/INJURED PATIENT INIT 30-74 MIN [...] ORDERABLE S Final Result Performing Organization Address City/State/ZIP Co me Phone Number [facility] [place] [address] * (ABNORMAL) eGFR (02/19/2025 8:12 PM CDT) [...] PhD LAB BLOOD ORDERABLE S Final Result [facility] [place] [address] * (ABNORMAL) Differential, auto (02/19/2025 8:12 PM CDT) Neutrophil abs 3.3 1.5 - 6.5 K/cumm Imm gran abs 0.4(H) 0.0 - 0.1 K/cumm [facility] Lymphocyte abs 0.7(L) 0.8 - 3.3 K/cumm [facility] Monocyte abs 0.7 0.2 - 0.8 K/cumm [facility] Eosinophil abs 0.0 0.0 - 0.5 K/cumm [facility] Basophil abs 0.0 0.0 - 0.1 K/cumm [facility] Neutrophil pct 64.4 % [facility] Comment: Confirmed by smear review Interpretive Data Percent cell count reference ranges are not reported, since discordance with absolute values may lead to misinterpretation of CBC data. Current Interpretive Data was last revised on 2018. Imm gran pct 7.4 % [facility] Comment: Interpretive Data Percent cell count reference ranges are not reported, since discordance with absolute values may lead to misinterpretation of CBC data. Current Interpretive Data was last revised on 2018. Lymphocyte pct 13.8 % [facility] Comment: Interpretive Data Percent cell count reference ranges are not reported, since discordance with absolute values may lead to misinterpretation of CBC data. Current Interpretive Data was last revised on 2018. Monocyte pct 13.6 % [facility] Comment: Interpretive Data Percent cell count reference ranges are not reported, since discordance with absolute values may lead to misinterpretation of CBC data. Current Interpretive Data was last revised on 2018. Eosinophil pct 0.0 % [facility] Comment: Interpretive Data Percent cell count reference ranges are not reported, since discordance with absolute values may lead to misinterpretation of CBC data. Current Interpretive Data was last revised on 2018. Basophil pct 0.8 % [facility] Comment: Interpretive Data Percent cell count reference ranges are not reported, since discordance with absolute values may lead to misinterpretation of CBC data. Current Interpretive Data was last revised on 2018. Blood 02/19/2025 8:12 PM CDT 02/19/2025 8:31 PM CDT us Marc Vasquez MD PhD LAB BLOOD ORDERABLE S Final Result [facility] [place] [address] * (ABNORMAL) Pro B-type natriuretic peptide (02/19/2025 [...] Heart J. 2006:27:330-337. 2. Kermit RW, Melissa AM. J. AM Kendra Cardiol: Cardiovasc Imag. 2009;2: 216- 225. Interpretive Data Last Revised Date: 2018. Blood 02/19/2025 8:12 PM CDT 02/19/2025 8:30 PM CDT us Sidney Malik MD LAB BLOOD ORDERABLES Fin al Result [facility] [place] [address] * (ABNORMAL) CBC with auto differential (02/19/2025 8:12 PM CDT) Pathologist [facility] WBC 5.1 3.8 - 9.9 K/cumm Hgb 11.6(L) 13.0 - 17.5 g/dL [facility] Hct 34.8(L) 38.9 - 50.3 % [facility] Plt 92(L) 150 - 400 K/cumm [facility] MPV 12.4(H) 9.1 - 12.3 fL [facility] RBC 3.70(L) 4.30 - 5.80 M/cumm [facility] MCV 94.1 81.3 - 96.4 fL [facility] MCH 31.4 27.1 - 33.3 pg [facility] MCHC 33.3 32.3 - 35.7 g/dL [facility] RDW CV 15.5(H) 11.1 - 14.9 % [facility] RDW SD 53.1(H) 35.7 - 48.1 fL [facility] NRBC abs 0.00 0.00 - 0.01 K/cumm [facility] Blood Venous blood specimen / Unknown 02/19/2025 8:12 PM CDT 02/19/2025 8:31 PM CDT Marc Vasquez MD PhD LAB BLOOD ORDERABLE S Final Result Performing Organization Address [facility] de Phone Number [facility] [place] [address] * Lipase (02/19/2025 8:12 PM CDT) [facility] Lipase 10 10 - 99 Units/L Blood Venous blood specimen / Unknown 02/19/2025 8:12 PM CDT 02/19/2025 8:30 PM CDT Marc Vasquez MD PhD LAB BLOOD ORDERABLE S Final Result Performing Organization Address [facility] Phone Number [facility] Department [place] [address] * (ABNORMAL) Hemoglobin A1c (02/19/2025 8:12 PM CDT) Pathologist [facility] Hgb A1C 6.4(H) 4.0 - 5.6 % Estimated Average Glucose 137 mg/dL [facility] Comment: The ADA recommends reporting an estimated [...] MD LAB BLOOD ORDERABLES Final Resul t [facility] [place] [address] * (ABNORMAL) Comprehensive metabolic panel (02/19/2025 8:12 PM CDT) Sodium 132(L) 135 - 145 mmol/L Potassium, pl 4.0 3.3 - 4.9 mmol/L [facility] Comment:Hemolyzed; Potassium value may be falsely elevated by as much as 0.3-0.5 mmol/L. Suggest redraw and reanalysis. Chloride 91(L) 97 - 110 mmol/L [facility] CO2 23 22 - 32 mmol/L [facility] Anion gap 18(H) 2 - 15 mmol/L [facility] BUN 29(H) 6 - 25 mg/dL [facility] Creatinine 2.02(H) 0.80 - 1.30 mg/dL [facility] Glucose 66(L) 70 - 199 mg/dL [facility] Comment: Interpretive Data Fasting [...] 2022. Calcium 8.5 8.5 - 10.3 mg/dL [facility] Bilirubin, total 1.8(H) 0.1 - 1.2 mg/dL [facility] Protein, pl 7.3 6.5 - 8.5 g/dL [facility] Albumin 3.2(L) 3.5 - 5.0 g/dL [facility] Alk phos 70 40 - 130 Units/L [facility] ALT 31 7 - 55 Units/L [facility] AST 63(H) 10 - 50 Units/L [facility] Comment:Hemolyzed; result ma y be falsely elevated Blood 02/19/2025 8:12 PM CDT 02/19/2025 8:30 PM CDT us Marc Vasquez MD PhD LAB BLOOD ORDERABLE S Final Result [facility] [place] [address] * ECG 12-LEAD (02/19/2025 7:57 PM CDT) Narrative [facility] - 02/19/2025 7:57 PM CDT Marc [...] MD PhD ECG ORDERABLES Fin al Result [facility] * POCT glucose (12/15/2024 12:46 PM PROGRAMMING COORDINATOR) Glucose, POC 128 70 - 199 mg/dL Blood 12/15/2024 12:4 6 PM PROGRAMMING COORDINATOR 12/15/2024 12:46 PM PROGRAMMING COORDINATOR Aaron Gutierrez MD LAB POCT ORDERABLES - DEV ICE Final Result Performing Organization Address [facility] Co de Phone Number [facility] [place] [address] * POCT glucose (12/15/2024 10:26 AM PROGRAMMING COORDINATOR) Glucose, POC 136 70 - 199 mg/dL Blood 12/15/2024 10:2 6 AM PROGRAMMING COORDINATOR 12/15/2024 10:26 AM PROGRAMMING COORDINATOR Aaron Gutierrez MD LAB POCT ORDERABLES - DEV ICE Final Result Performing Organization Address [facility] de Phone Number [facility] [place] [address] * CT Chest WO Contrast F/U Lung Screen Protocol (11/12/2022 4:29 PM PROGRAMMING COORDINATOR) Anatomical Region Laterality Modality Chest N/A Computed Tomogra phy 11/13/2022 8:38 AM PROGRAMMING COORDINATOR Narrative 11/13/2022 8:47 AM PROGRAMMING COORDINATOR EXAM DESCRIPTION: CT CHEST WO CONTRAST F/U [...] More Greenwood M.D. TW: CASSIE Report ID: [id number] Reading Location: [id number] Procedure Note More Greenwood MD - 11/13/2022 [...] More Greenwood M.D. TW: CASSIE Report ID: [id number] Reading Location: [place] [address] Sami Campbell MD IMG CT PROCEDURES Final Result * (ABNORMAL) Albumin Creatinine Ratio, Urine (07/01/2022 2:08 PM CDT) Albumin Ur 32.7 mg/L [facility] ([facility]) Comment: Interpretive Data No reference range established. Current interpretive data was last revised 2019. Testing performed by: [facility], [address] [place] [address]., [address] Creatinine Ur 57.0 mg/dL [facility] ([facility] Comment: Interpretive Data No reference range established. Current interpretive data was last revised 2019. Testing performed by: [facility], [address] [place] [address]., [id number] Albumin Creatinine Ratio, Ur 57(H) 1 - 29 mg/g [facility] ([facility]) Comment:Testing performed by : [facility], [address] [place] [address]., [address] Urine 07/01/2022 2:08 PM CDT 07/02/2022 9:48 AM CDT Xiao Swanson MD LAB URINE ORDERABLES Final Res ult [facility] [place] [address] * Diabetic Eye Exam (01/22/2022) Historical Provider HEALTH MAINTENANCE Final Result from Last 3 Months or Most Recently Relevant to Health Maintenance Insurance [employer] AD[employer]AGE MEDICARE ADVANTAGE MEDICARE ADVANTAGE Advance Directives For more information, please contact: [phone] * Full Code (Latest Code Status on File) Date Activated Date Inactivated Comments 02/20/2025 1:29 PM 03/02/2025 8:05 PM * Full Code Date Activated Date Inactivated Comments 09/08/2019 2:14 PM 09/08/2019 9:30 PM Care Teams Operations Recruiter Relationship Specialty Start Date End Date Giuliano Isbell MD [address] [place] [address] PCP - General Family Medicine 07/13/23
--- OUTSIDE RECORDS SUMMARY | 2025-03-15 01:51 | XMS_ITS | Continuity of Care Document ---
Author Organization [facility] Address [address] [place] [address] Phone Care Team Providers Care Dish Maker Name Role Phone Sami Flores MD Unavailable Unava ilable Medications Medication Instructions Dosage Effective Dates (start - stop) Status Comments fenofibrate 160 mg tablet take 1 tablet by oral route every day 160 MG - Active [place] 5 mg-325 mg tablet take 1-2 tablet [...] Diagnoses Date Provider Providers Copied on Encounter [facility], [address], [place], [place], [id number] , tel: [phone] [facility] No Information 5 Sandra Agudelo. [address], [address], [place], [place], [address] , [place]. tel: [phone] [facility], [address], [place], [place], [address] , tel: [phone] [facility] Coronary artery disease, occlusiveAortocoron brandi bypass statusOld [place] (myocardial infarction)Pain, kneeHypertension, benignHyperlipidemi aChronic painSpecial screening, prostate cancer 4 Sandra Agudelo. [address], [address], [place], [place], [address] , . tel: [phone] Referring Provider: Sami Flores, [address], [place], [address] . tel:[phone] [facility], [address], [place], [place], [address] , [place] tel: [phone] [facility] No Information 4 Sandra Agudelo. [address], [address], [place], [place], [address] , [place]. tel: [phone] Family History Family Member Type Diagnosis Age At Onset Father Problem (finding) hypertension Father Problem (finding) Eczema Problem (finding) Family history of alzhe gage's disease Immunizations Vaccine Date Status Comments Influenza, injectable, quadrivalent, preservative free, 3 yrs or older administered Source: New Immuniz ation Record Payers Payer name Insurance type Covered green party ID Authoriza tion(s) [employer] MDCR PPO [place] [id number] [employer] MD[employer] PPO [place] [id number] Social History Type Description Quantity Date Captured [...]
--- OUTSIDE RECORDS SUMMARY | 2025-03-15 01:51 | XMS_ITS | Continuity of Care Document ---
Author Organization [facility] Address [address] [place] [address] [place] [address] Phone Care Team Providers Care Dials Supervisor Name Role Phone Giuliano Isbell MD Unavailable Unavailable Advance Directives Directive Yes / No Effective Date File Name No Information Encounters Encounter Description Practice Location Reason(s) For Visit Diagnoses Date Provider Providers Copied on Encounter [facility], [place], [address] [place], [id number], [place] tel:[phone] [facility], [place] No Information Sukhi Nobles. [address] [facility] [place], [place], [address], [place]. tel:[phone] Family History Family Member Type Diagnosis Age At Onset No Information Payers Payer name Insurance type Covered alliance party ID Authoriza tion(s) No Information Social History [...]
--- OUTSIDE RECORDS SUMMARY | 2025-03-15 01:52 | XMS_ITS | Continuity of Care Document ---
Author Organization [facility] Address [address] [place] [address] [place] [address] Phone Care Team Providers Care Leaf Size Picker Name Role Phone Giuliano Isbell MD Unavailable [...] disp two box of total 10 pens albuterol sulfate 2.5 mg/3 mL (0.083 %) solution for nebulization inhale 3 milliliter by nebulization route every 6 hours 2.5 MG - Active PRN for sob nebulizers use every 4 hours PRN for sob as needed - Active albuterol sulfate HFA 90 mcg/actuation aerosol inhaler [...] Diagnoses Date Provider Providers Copied on Encounter [facility], [address], [place], [place], [address], [place] tel:[phone] [facility] Family Medicine No Information 5 Sukhi Nobles. [address], [place], [place], [address] , [place]. tel:[phone] PREV VISIT, EST, 65 & OVER [facility], [address], [place], [place], [address], [place] tel:[phone] [facility] Medicine physical (chief complaint) Encounter for general adult medical examination without abnormal findings 5 Sukhi Nobles. [address], [place], [place], [address] , [place]. tel:[phone] OFFICE/OUTPA TIENT VISIT, [facility], [address], [place], [place], [address], [place] tel:[phone] [facility] pain (chief complaint) ED (chief complaint) Chronic pain syndromeMale erectile dysfunction, unspecified 5 Sukhi Nobles. [address], [place], [place], [address] , [place]. tel:[phone] OFFICE/OUTPA TIENT VISIT, [facility], [address], [place], [place], [address], [place] tel:[phone] [facility] pain (chief complaint) abscess1 (chief complaint) tobacco1 (chief complaint) liver cirrhosis1 (chief complaint) Chronic pain syndromeNonalcoholi c steatohepatitis (KHAN)Centrilobular emphysemaCellulitis of groin 5 Sukhi Nobles. [address], [place], [place], [address] , [place]. tel:[phone] OFFICE/OUTPA TIENT VISIT, [facility], [address], [place], [place], [address], [place] tel:[phone] [facility] carpal tunnel1 (chief complaint) pain (chief complaint) liver1 (chief complaint) Chronic pain syndromeAlcoholic hepatic cirrhosis w/o ascitesCarpal tunnel syndrome, bilateral upper limbsTobacco use 4 Sukhi Nobles. [address], [place], [place], [address] , [place]. tel:[phone] OFFICE/OUTPA TIENT VISIT, [facility], [address], [place], [place], [address], [place] tel:[phone] [facility] pain (chief complaint) Chronic pain syndrome 4 Sukhi Nobles. [address], [place], [place], [address] , [place]. tel:[phone] OFFICE/OUTPA TIENT VISIT, [facility], [address], [place], [place], [address], [place] tel:[phone] [facility] abscess1 (chief complaint) Cellulitis of groin 4 Sukhi Nobles. [address], [place], [place], [address] , [place]. tel:[phone] OFFICE/OUTPA TIENT VISIT, [facility], [address], [place], [place], [address], [place] tel:[phone] [facility] pain (chief complaint) Chronic pain syndrome 4 Sukhi Nobles. [address], [place], [address] , [place]. tel:[phone] OFFICE/OUTPA TIENT VISIT, [facility], [address], [place], [place], [address], [place] tel:[phone] [facility] pain (chief complaint) liver1 (chief complaint) platelet1 (chief complaint) HLP (chief complaint) Nonalcoholic steatohepatitis (KHAN)Chronic pain syndromeThrombocyto peniaMixed hyperlipidemia 4 Sukhi Nobles. [address], [place], [place], [address] , [place]. tel:[phone] OFFICE/OUTPA TIENT VISIT, [facility], [address], [place], [place], [address], [place] tel:[phone] [facility] cough1 (chief complaint) COPD1 (chief complaint) pain (chief complaint) cirrhosis1 (chief complaint) Chronic pain syndromeCentrilobul ar emphysemaNonalcohol ic steatohepatitis (KHAN)Acute bronchitis 4 Isbell Giuliano. [address], [place], [place], [address] , [place]. tel:[phone] OFFICE/OUTPA TIENT VISIT, [facility], [address], [place], [place], [address], [place] tel:[phone] [facility] pain (chief complaint) DM (chief complaint) carpal tunnel1 (chief complaint) CAD (chief complaint) Chronic pain syndromeType 2 diabetes mellitus with diabetic nephropathyCAD of [place] coronary artery without angina pectorisCarpal tunnel syndrome, bilateral upper limbs 4 Isbell Giuliano. [address], [place], [place], [address] , [place]. [phone] OFFICE/OUTPA TIENT VISIT, [facility], [address], [place], [place], [address], [place] tel:[phone] [facility] pain (chief complaint) Chronic pain syndrome 4 Isbell Giuliano. [address], [place], [place], [address] , [place]. tel:[phone] OFFICE/OUTPA TIENT VISIT, [facility], [address], [place], [place], [address], [place] tel:[phone] [facility] DM (chief complaint) pain (chief complaint) Type 2 diabetes mellitus with diabetic nephropathyChronic pain syndrome 4 Isbell Giuliano. [address], [place], [place], [address] , [place]. tel:[phone] OFFICE/OUTPA TIENT VISIT, [facility], [address], [place], [place], [address], [place] tel:[phone] [facility] shoulder pain1 (chief complaint) Pain in left shoulder 0 4 Isbell Giuliano. [address], [place], [address] , [place]. tel:[phone] OFFICE/OUTPA TIENT VISIT, [facility], [address], [place], [place], [address], [place] tel:[phone] [facility] DM (chief complaint) pain (chief complaint) Type 2 diabetes mellitus with diabetic nephropathyChronic pain syndrome March-0 2 4 Sukhi Nobles. [address], [place], [address] , [place]. tel:[phone] OFFICE/OUTPA TIENT VISIT, [facility], [address], [place], [place], [address], [place] tel:[phone] [facility] DM (chief complaint) Type 2 diabetes mellitus with diabetic nephropathy Feb-0 4 uSkhi Nobles. [address], [place], [address] , [place]. tel:[phone] OFFICE/OUTPA TIENT VISIT, [facility], [address], [place], [place], [address], [place] tel:[phone] [facility] absess1 (chief complaint) pain (chief complaint) Cellulitis of buttockChronic pain syndrome Feb-0 4 Sukhi Nobles. [address], [place], [place], [address] , [place]. tel:[phone] OFFICE/OUTPA TIENT VISIT, [facility], [address], [place], [place], [address], [place] tel:[phone] [facility] colon polyp1 (chief complaint) pain1 (chief complaint) Polyp of colonChronic pain syndrome Jan-0 4 Sukhi Nobles. [address], [place], [place], [address] , [place]. tel:[phone] OFFICE/OUTPA TIENT VISIT, [facility], [address], [place], [place], [address], [place] tel:[phone] [facility] skin1 (chief complaint) Cellulitis of left leg 4 Isbell Giuliano. [address], [place], [place], [address] , [place]. tel:[phone] OFFICE/OUTPA TIENT VISIT, [facility], [address], [place], [place], [address], [place] tel:[phone] [facility] chronic pain1 (chief complaint) polyp1 (chief complaint) Chronic pain syndromePolyp of colon 4 Isbell Giuliano. [address], [place], [place], [address] , [place]. tel:[phone] OFFICE/OUTPA TIENT VISIT, [facility], [address], [place], [place], [address], [place] tel:[phone] [facility] rectal (chief complaint) Polyp of colonEsophageal varices 4 Sukhi Nobles. [address], [place], [place], [address] , [place]. tel:[phone] OFFICE/OUTPA TIENT VISIT, [facility], [address], [place], [place], [address], [place] tel:[phone] [facility] Gi bleeding1 (chief complaint) pain (chief complaint) Alcoholic hepatic cirrhosis w/o ascitesEsophageal varicesOccult blood in stoolChronic pain syndrome 4 Isbell Giuliano. [address], [place], [place], [address] , [place]. tel:[phone] OFFICE/OUTPA TIENT VISIT, [facility], [address], [place], [place], [address], [place] tel:[phone] [facility] liver cirrhosis1 (chief complaint) chronic pain1 (chief complaint) Chronic pain syndromeHemoptysisP ulmonary edemaEsophageal varices 3 Sukhi Nobles. [address], [place], [address] , [place]. tel:[phone] OFFICE/OUTPA TIENT VISIT, [facility], [address], [place], [place], [address], [place] tel:[phone] [facility] GI (chief complaint) Alcoholic hepatic cirrhosis w/o ascites 3 Sukhi Nobles. [address], [place], [place], [address] , [place]. tel:[phone] OFFICE/OUTPA TIENT VISIT, [facility], [address], [place], [place], [address], [place] tel:[phone] [facility] cirrhosis1 (chief complaint) DM (chief complaint) LFT (chief complaint) platelet1 (chief complaint) pain (chief complaint) Type 2 diabetes mellitus with diabetic nephropathyOther cirrhosis of liverThrombocytopen iaChronic pain syndrome 3 Sukhi Nobles. [address], [place], [place], [address] , [place]. tel:[phone] OFFICE/OUTPA TIENT VISIT, [facility], [address], [place], [place], [address], [place] tel:[phone] [facility] chronic pain1 (chief complaint) HLP (chief complaint) COPD1 (chief complaint) DM (chief complaint) Centrilobular emphysemaCAD of [place] coronary artery without angina pectorisType 2 DM w/ diabetic neuropathyChronic pain syndrome 3 Sukhi Nobles. [address], [place], [place], [address] , [place]. tel:[phone] [facility], [address], [place], [place], [address], [place] tel:[phone] [facility] No Information 3 Sukhi Nobles. [address], [place], [address] , [place]. tel:[phone] OFFICE/OUTPA TIENT VISIT, [facility], [address], [place], [place], [address], [place] [phone] [facility] sick (chief complaint) Acute bronchitisViral infection 3 Sukhi Nobles. [address], [place], [address] , [place]. tel: [phone] OFFICE/OUTPA TIENT VISIT, [facility], [address], [place], [place], [address], [place] [phone] [facility] COVID (chief complaint) Viral infection 3 Sukhi Nobles. [address], [place], [place], [address] , [place]. [phone] [facility], [address], [place], [address], [place] [phone] [facility] No Information 3 Sukhi Nobles. [address], [place], [place], [address] , [place]. tel:[phone] OFFICE/OUTPA TIENT VISIT, [facility], [address], [place], [place], [address], [place] [phone] [facility] back pain1 (chief complaint) DM (chief complaint) COPD1 (chief complaint) liver cirrhosis1 (chief complaint) low platelet1 (chief complaint) CAD (chief complaint) Type 2 DM w/ diabetic neuropathyCAD of [place] coronary artery without angina pectorisCentrilobul ar emphysemaOther cirrhosis of liverChronic pain syndrome 3 Sukhi Nobles. [address], [place], [place], [address] , [place]. tel:[phone] Family History Family Member Type Diagnosis Age At Onset Mother Problem of CAD 74 Father Problem of emphysema 70 Brother Problem Alive and well Payers Payer name Insurance type Covered green party ID Authorgrzegorza abdirahman(s) [facility] [id number] Social History Type Description Quantity Date Captured Comments Alcohol Use Details Unknown Caffeine Use Details Unknown Tobacco Use Status Smoking Status No Information Sex Male Vital Signs Date / Time: Height Weight BMI Pulse Rate Blood Pressure Temperature Respiratory Rate Body Surface Area Head Circumference BMI percentile Pulse Ox Inhaled Ox 4:21 PM 72.00 in 284.60 lbs 38.6 0 kg/m eter (2) 94 /min 120/72 mm[Hg] 98.0 F 16 /min Chief Complaint And Reason For Visit No [...] and treat ordered Appointment Julius Campos BOOKED History Of Present [...] being monitored. Pt denies any new compliant pain Pt has chronic n mark and jamie pain. Pt states that he is in pain all the time. Pt denies any loss of bowel or bladder control or saddle area paresthesia. MRI of C and T and L spine showed severe DDD. He needs norco refilled. Pt needs lidocaine patch refilled. ED Pt has ED Pt den ies [...] norco refilled. Pt needs lidocaine patch refilled. liver cirrhosis1 Pt has KHAN Pt sees liver specialist. Pt denies any abd pain or jaundice. Pt needs HCC screening tobacco1 pt is long time smoker with COPD. Pt sees pulmonary and he is on spiriva Pt had negative LDCT last month Pt denies any hemoptysis abscess1 Pt has recurrent abscess around groin area Pt notices some drainage again Pt does not want to take oral abx again pt wants to try some topicals. Pt denies any fever, etc liver1 pt has liver cir rhosis Pt sees GI pt needs HCC screen. Pt has not done it yet carpal tunnel1 Pt has bilateral carpal tunnel pt had surgery right hand recently at [facility]. Pt doing ok. Pt will have left hand surgery done soon pain Pt has chronic n mark and [...] rhosis due to KHAN. Pt is seeing senior laboratory technician. Pt denies any abd pain or jaundice. [...] 140 recently. Pt does see endo at [facility] who retired recently and he does not want to see UTILITY AGENT for his DM care and he wants referral to new consumer studies professor Pt is about to running out of [...] states that lower GI bleeding stopped . chronic pain1 Pt has chronic n mark and jamie pain. Pt states that he has DDD around neck and back. Pt states that he is in pain all the time. pt states that he tried to get the MRI report from [place] but they will not release it. liver cirrhosis1 Pt has liver ci rrhosis and he sees liver specialist at [facility], who told him that he may have esophageal varices. Pt has been coughing up some blood tinge phlegm last week. Pt denies any persistent cough or sob. Pt denies any chest pain Pt went to ER and had chest x ray done which showed some cardiomegaly and mild pulmonary edema. Pt does see pegger. GI Pt has liver cir rhosis and he sees liver specialist at [facility]. Pt denies any abd pain or jaundice. Pt wants colonguard order Pt denies any lower GI issue .Pt just had EGD done two weeks ago at Dr. ricci office and he did attempt for colonoscopy but unsuccessful due to poor prep. platelet1 Pt has low plate let with high MCV. Pt states that he only drinks alcohol socially now but he used to drink more alcohol LFT Pt has mildly hi gh LFT. .Pt does have signs of liver cirrhosis. Pt denies any abd pain or jaundice. DM Pt sees endo. pt is on insulin His A1c is ok. .He does have mild proteinuria cirrhosis1 Pt has liver cir rhosis on CT scan. Pt is seeing Dr. De Jesus from [facility] for his cirrhosis now and he was referred to Dr. Ricci who performed EGD several weeks ago and he will do colonoscopy next week. He was told that he has gastritis only pain Pt has chronic n mark and jamie pain. Pt states that he has DDD around neck and back. Pt states that he is in pain all the time. pt states that he tried to get the MRI report from [place] but they will not release it. chronic pain1 Pt has chronic n mark and jamie pain. Pt states that he has DDD around neck and back. Pt states that he is in pain all the time. pt states that he tried to get the MRI report from [place] but they will not release it. he HLP Pt has HLP Pt andujar s CAD Pt takes lipitor Pt sees cardiology in [facility] . Pt denies any chest pain COPD1 Pt has COPD [place] and he does not know the name of the pulmonary Pt denies any sob DM Pt has dm Pt is on humalog insulin and he sees endo in [place] Pt states that his glucose is around [...] liver cirrhosis. Pt denies any abdominal pain low platelet1 Pt has chronic t hrombocytopenia Pt denies any bleeding or bruising Pt sees oncology. CAD Pt has CAD s/p s tent. Pt sees cardiology Pt is on entresto and plavix Pt denies any chest pain back pain1 Pt has chronic m id and low back pain with sciatica and leg neuropathy symptoms Pt denies any loss of bowel or bladder control or saddle area paresthesia Pt states that his previous MD tried him on lyrica and neurontin and cymbalta and none of them helped. Pt states that his previous PCP does not want to treat his pain. DM Pt has DM with n europathy. Pt uses humalog and he sees endo (Dr. Fair) and he states that his glucose is around 140s. COPD1 Pt has COPD ,Pt sees pulmonary and he sees pulmonary and he is on spiriva. He denies any hemoptysis, sob or cough Instructions Date Instruction Additional Infor mation No Information Assessments Type Assessment Date No Information
--- OUTSIDE RECORDS SUMMARY | 2025-03-15 01:52 | XMS_ITS | Clinical Summary ---
Author Organization [facility] Address [address] [place] [id number] Care Team Providers Care Grave Cleaner Name Role Phone Unavailable Primary Care Provider [...]
--- OUTSIDE RECORDS SUMMARY | 2025-03-15 01:52 | XMS_ITS | Encounter Summary ---
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
--- OUTSIDE RECORDS SUMMARY | 2025-03-15 01:52 | XMS_ITS | Referral Summary ---
Author Organization [facility] [address] Address [address] [place] [address] Care Team Providers Care Triple Air Valve Tester Name Role Phone Giuliano Isbell MD Primary Care Provider [phone] Encounters Date Type Department Care Team Description 5 Telephone [facility] Diabetes Endocrine Care at [address] [place] [address] Ramya Francisco, CLINIC ADMINISTRATOR 5 Telephone [facility] Diabetes Endocrine Care at [address] [place] [address] Ramya Francisco, CLINIC ADMINISTRATOR 5 SHOP/CHAP Initial Outreach [facility] OP CASE MANAGEMENT 1 [place] [phone] Jazmin Durbin RN [address] [phone] Sue Silveira [facility] 5 Telephone [facility] [address] [place] [phone] Deborah Vizcarra 5 SHOP/CHAP Initial Outreach [facility] OP CASE MANAGEMENT 1 [place] [address] Jazmin Durbin, RN 5 SHOP/CHAP Initial Outreach [facility] OP CASE MANAGEMENT 1 [place] [address] Jazmin Durbin, AIRELLE 5 Telephone [facility] [address] [facility] [address] [place] [phone] Deborah Vizcarra 5 SHOP/CHAP Initial Eligibility Review [facility] OP CASE [facility]NAGEMENT 1 [place] [address] Jazmin Durbin, ARIELLE 5 8:15 PM CDT - 5 3:59 PM CDT Hospital Encounter [address] [phone] Marc Vasquez MD PhD Ma, MD Kenn [...] care 5 9:20 AM CDT Anesthesia Event [facility] [address] [place] [phone] Victor M Jefferson MD 5 9:27 AM CDT - 5 10:12 AM CDT Surgery [facility] [address] [phone] Abril Mcintyre MD ESOPHAGOGASTRODUODENOSCOPY 5 Telephone [facility] [address] [place] [address] 12th [place] [address] [place] [address] Cristela Macias JADE 5 Telephone [facility] [address] [facility] 12th [place] [address] [place] [address] Ced Ana Andressa Schedule Ultrasound 5 11:30 AM STUDENT DEVELOPMENT ADVISOR Office Visit [facility] [address] [facility] 6th [place] [address] [place] [address] Aaron Gutierrez MD Bilateral carpal tunnel syndrome (Primary Dx) 5 1:00 PM STUDENT DEVELOPMENT ADVISOR Office Visit [facility] Pulmonary at [address] [place] [address] Velia Alonso NP Centrilobular emphysema (HCC) (Primary Dx); Chronic congestive heart failure, unspecified heart failure type (HCC); Gastroesophageal reflux disease without esophagitis; Cigarette nicotine dependence without complication 5 10:45 AM STUDENT DEVELOPMENT ADVISOR - 5 11:15 AM STUDENT DEVELOPMENT ADVISOR Surgery [facility] [address] [address] Aaron Gutierrez MD LEFT CARPAL TUNNEL RELEASE 5 11:59 AM STUDENT DEVELOPMENT ADVISOR Anesthesia Event [facility] [address] [place] [address] Jose R Peter MD Heuvelman, Katherine Marie, NP 5 9:46 AM STUDENT DEVELOPMENT ADVISOR - 5 1:58 PM STUDENT DEVELOPMENT ADVISOR Hospital Encounter [facility] [address] [place] [address] Aaron Gutierrez MD Carpal tunnel syndrome of left wrist (Primary Dx) Discharge Disposition: Discharge to home or self care from Last 3 Months Allergies No known [...] (HCC) Inhale 2 puffs daily 1 each 11 12/21/19 25 2025 Active albuterol HFA (PROVENTIL HFA,VENTOLIN HFA,PROAIR HFA) 90 mcg/actuation inhalerIndicat ions:Centrilob ular emphysema (HCC) Inhale 2 puffs every 6 (six) hours as needed for wheezing or shortness of breath 1 each 12/21/19 25 Active OLANZapine (ZyPREXA) 10 mg tablet Take [...] 12/21/2024 Assessment & Plan (12/21/2024 2:23 PM STUDENT DEVELOPMENT ADVISOR): - Smoking cessation counseling and techniques reviewed at length - Avoid triggers and use distraction techniques - Information given regarding [place] Tobacco Quit line: 2-556-ATDC-YES for free services - 5 minutes spent [...] Lasix Assessment & Plan (01/02/2023 2:48 PM STUDENT DEVELOPMENT ADVISOR): Diagnosed around 2017 On insulin since diagnosis [...] prescribed. 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 Congestive heart failure 09/16/2021 Assessment & Plan (12/21/2024 2:21 PM STUDENT DEVELOPMENT ADVISOR): Continue aspirin, carvedilol, clopidogrel, Entresto, and furosemide I recommend close follow-up with Cardiology I will have staff request a recent echocardiogram Cardiomyopathy, ischemic 11/21/2019 Atherosclerosis of [place] co ronary artery of [place] heart with unstable angina pectoris 08/31/2019 Overview (08/31/2019): Added automatically from request for surgery [id number] Calculus of gallbladder without cholecystitis Chest pain [...] 01/28/2018 Assessment & Plan (12/21/2024 2:18 PM STUDENT DEVELOPMENT ADVISOR): He will restart Spiriva Respimat 2.5 two [...] tis Assessment & Plan (12/21/2024 2:20 PM STUDENT DEVELOPMENT ADVISOR): He has been well-controlled on as needed therapy Elevate head of bed while sleeping Avoid trigger foods No eating 2-3 hours before bed Anxiety Immunizations Immunization Administration Dates Next Due Influenza, Quad, Adjuvantate d, Intramuscular 08/08/2023,09/12/2022 Influenza, Quadrivalent, Hig h Dose, Preservative Free, Intrr 08/21/2021,08/10/2020 Influenza, Quadrivalent, Spl it, Preservative Free, Intramuscular 09/30/2019,09/23/2018,10/29/2017 Influenza, Unspecified 10/15/2021 Classiphix SARS-CoV-2 Monovalent Vaccination (12+ Yrs) PURPLE 03/14/2021,02/23/2021 [...] drink = 0.6 oz pur e alcohol) [facility] Utilities Answer Date Recorded In the past 12 months has e [employer], gas, oil, or water [employer] threatened to shut off services in your [...] week 03/01/2025 How often do you attend [facility] or anabaptism services? Patient unable to answer 03/01/2025 Do you belong to any clubs o r organizations such as tenriism groups, unions, fraternal or athletic groups, or [...] Date Recorded PHQ-2 Total Score 0 03/01/2025 [facility] - Occupational Stress Questionnaire Answer [...] any time in the past 12 m onths, were you homeless or living in a fpc (including now)? No 03/01/2025 Personal Safety Answer [...] on file Legal Sex Male 6:28 PM STUDENT DEVELOPMENT ADVISOR Gender Identity Not on file Sexual Orientation [...] on file Medical Devices Implanted Type Area Will Call Clerk Device Identifier Shelf Expiration Date Model / Serial / Lot [employer] [id number] Angio-Seal Evolution 6fr .035in Guidewire Bypass Tube Suture - [id number] Implanted:Qty : 1 on 09/08/2019 by Shan Mcginnis MD at [facility] Other - see comments [employer] 04/22/2020 [id number] / / [id number] Cardiac Stent X4 Implanted:Qty : 4 N/A: [...] CHEMISTRIES, VENOUS Routine 02/21/2025 3:[address] INSJ NON-TUNNELED CENTRAL VENOUS CATH AGE 4 YR/> Routine 02/21/2025 1:30 AM CDT Sepsis with acute organ dysfunction and septic shock, due to unspecified organism, unspecified organ dysfunction type (HCC) POC BLOOD GAS AND CHEMISTRIES, ARTERIAL Routine 02/21/2025 1:[address] ARTL CATHJ/CANNULJ MNTR/TRANSFUSION SPX PRQ Routine 02/21/2025 [...] AUREUS) CULTURE Routine 02/21/2025 12:[address] CRITICAL CARE ILL/INJURED PATIENT INIT 30-74 MIN [...] ED Urgent/IP Urgent 02/19/2025 9:[address] CRITICAL CARE ILL/INJURED PATIENT INIT 30-74 MIN [...] POCT GLUCOSE DEVICE Routine 12/15/2024 12:46 PM STUDENT DEVELOPMENT ADVISOR RELEASE CARPAL TUNNEL 12/15/2024 11:58 AM STUDENT DEVELOPMENT ADVISOR Left carpal tunnel syndrome Case Notes 12/14 - Per Dr Gutierrez, change cut to close to 5 minutes. NB10@0709: Sent case msg to [facility] about pt not having transportion to surgery yesterday/case is now marked, No not ready to schedule. SR 04/19@1149 Case message to [facility] - case to be rescheduled as patient didn't have transportation CF05/21@0945 Per Dania Rehman per case message, this case fourth CF04/15@1544 Per [facility], I am confirming the surgery date is 04/14/24.thank you. CF04/15@1402 Confirm Surgery Date - Call to [facility] to confirm the surgery date, left voicemail CF12/18 @ 1613 Case message to [facility], case marked No, not ready to schedule CF/ @ 1753 Per [facility] via case message, line up for rooms G & H CF POCT GLUCOSE DEVICE Routine 12/15/2024 10:26 AM STUDENT DEVELOPMENT ADVISOR CT CHEST WO CONTRAST F/U RUBI G SCREEN PROTOCOL Schedule Routine, Read Routine (OP Routine) 11/12/2022 4:29 PM STUDENT DEVELOPMENT ADVISOR Lung nodule ALBUMIN CREATININE RATIO, URINE Routine [...] ORDERABLES Final Res ult Performing Organization Address [facility] Co de Phone Number [facility] [place] [address] * (ABNORMAL) POCT glucose (03/02/2025 11:24 AM CDT) Glucose, POC 258(H) 70 - 199 mg/dL Blood 03/02/2025 11:2 4 AM CDT 03/02/2025 11:24 AM CDT Eagle Jerry MD LAB POCT ORDERABLES - DEVICE F inal Result Performing Organization Address [facility] de Phone Number [facility] [place] [address] * POCT glucose (03/02/2025 7:40 AM CDT) Glucose, POC 108 70 - 199 mg/dL Blood 03/02/2025 7:40 AM CDT 03/02/2025 7:40 AM CDT Eagle Jerry MD LAB POCT ORDERABLES - DEVICE F inal Result Performing Organization Address [facility] de Phone Number [facility] [place] [employer] [place] [address] * (ABNORMAL) Potassium, whole blood (03/01/2025 10:11 PM CDT) Potassium, bld 5.3(H) 3.3 - 4.9 mmol/L Blood 03/01/2025 10:1 1 PM CDT 03/01/2025 10:18 PM CDT Eagle Jerry MD LAB BLOOD ORDERABLES Final Res ult Performing Organization Address [facility] Co de Phone Number [facility] Department [place] [address] * eGFR (03/01/2025 8:13 PM CDT) eGFR [...] ORDERABLES Final Res ult Performing Organization Address City/[facility]/ZIP Co de Phone Number [facility] Department [place] [address] * Differential, auto (03/01/2025 8:13 PM CDT) Pathologist [facility] Neutrophil abs 4.58 1.50 - 6.50 K/cumm Imm gran abs 0.03 0.00 - 0.10 K/cumm [facility] Lymphocyte abs 1.69 0.80 - 3.30 K/cumm [facility] Monocyte abs 0.61 0.20 - 0.80 K/cumm [facility] Eosinophil abs 0.15 0.00 - 0.50 K/cumm [facility] Basophil abs 0.00 0.00 - 0.10 K/cumm [facility] Neutrophil pct 65.0 % [facility] Comment: Interpretive Data Percent cell count reference ranges are not reported, since discordance with absolute values may lead to misinterpretation of CBC data. Current Interpretive Data was last revised on 2018. Imm gran pct 0.4 % [facility] Comment: Interpretive Data Percent cell count reference ranges are not reported, since discordance with absolute values may lead to misinterpretation of CBC data. Current Interpretive Data was last revised on 2018. Lymphocyte pct 23.9 % [facility] Comment: Interpretive Data Percent cell count reference ranges are not reported, since discordance with absolute values may lead to misinterpretation of CBC data. Current Interpretive Data was last revised on 2018. Monocyte pct 8.6 % [facility] Comment: Interpretive Data Percent cell count reference ranges are not reported, since discordance with absolute values may lead to misinterpretation of CBC data. Current Interpretive Data was last revised on 2018. Eosinophil pct 2.1 % [facility] Comment: Interpretive Data Percent cell count reference ranges are not reported, since discordance with absolute values may lead to misinterpretation of CBC data. Current Interpretive Data was last revised on 2018. Basophil pct 0.0 % [facility] Comment: Interpretive Data Percent cell count reference ranges are not reported, since discordance with absolute values may lead to misinterpretation of CBC data. Current Interpretive Data was last revised on 2018. Blood 03/01/2025 8:13 PM CDT 03/01/2025 8:30 PM CDT us Eagle Jerry MD LAB BLOOD ORDERABLES Final Res ult [facility] Department [place] [address] * (ABNORMAL) CBC with auto differential (03/01/2025 8:13 PM CDT) [facility] WBC 7.06 3.80 - 9.90 K/cumm Hgb 7.4(L) 13.0 - 17.5 g/dL [facility] Hct 22.5(L) 38.9 - 50.3 % [facility] Plt 174 150 - 400 K/cumm [facility] MPV 11.5 9.1 - 12.3 fL [facility] RBC 2.41(L) 4.30 - 5.80 M/cumm [facility] MCV 93.4 81.3 - 96.4 fL [facility] MCH 30.7 27.1 - 33.3 pg [facility] MCHC 32.9 32.3 - 35.7 g/dL [facility] RDW CV 16.8(H) 11.1 - 14.9 % [facility] RDW SD 56.1(H) 35.7 - 48.1 fL [facility] NRBC abs 0.03(H) 0.00 - 0.01 K/cumm [facility] Blood 03/01/2025 8:13 PM CDT 03/01/2025 8:30 PM CDT Eagle Jerry MD LAB BLOOD ORDERABLES Final Res ult [facility] Department [place] [address] * (ABNORMAL) Comprehensive metabolic panel (03/01/2025 8:13 PM CDT) [facility] Sodium 135 135 - 145 mmol/L Potassium, pl 5.4(H) 3.3 - 4.9 mmol/L [facility] Chloride 103 97 - 110 mmol/L [facility] CO2 28 22 - 32 mmol/L [facility] Anion gap 4 2 - 15 mmol/L [facility] BUN 40(H) 6 - 25 mg/dL [facility] Creatinine 1.04 0.80 - 1.30 mg/dL [facility] Glucose 124 70 - 199 mg/dL [facility] Comment: Interpretive Data Fasting glucose >/= [...] 2022. Calcium 8.0(L) 8.5 - 10.3 mg/dL [facility] Bilirubin, total 0.6 0.1 - 1.2 mg/dL [facility] Protein, pl 6.5 6.5 - 8.5 g/dL [facility] Albumin 2.7(L) 3.5 - 5.0 g/dL [facility] Alk phos 107 40 - 130 Units/L [facility] ALT 59(H) 7 - 55 Units/L [facility] AST 52(H) 10 - 50 Units/L [facility] Blood 03/01/2025 8:13 PM CDT 03/01/2025 8:30 PM CDT Eagle Jerry MD LAB BLOOD ORDERABLES Final Res ult Performing Organization Address [facility]/ZIP Co de Phone Number [facility] Department [place] [place] [address] * POCT glucose (03/01/2025 7:41 PM CDT) [facility] Signature Glucose, POC 103 70 - 199 mg/dL Blood 03/01/2025 7:41 PM CDT 03/01/2025 7:41 PM CDT Eagle Jerry MD LAB POCT ORDERABLES - DEVICE F inal Result Performing Organization Address City/[facility]/ZIP Co de Phone Number [facility] Department [place] [address] * POCT glucose (03/01/2025 4:13 PM CDT) Glucose, POC 140 70 - 199 mg/dL Blood 03/01/2025 4:13 PM CDT 03/01/2025 4:13 PM CDT Eagle Jerry MD LAB POCT ORDERABLES - DEVICE F inal Result Performing Organization Address [facility] Co de Phone Number [facility] [place] [address] * (ABNORMAL) POCT glucose (03/01/2025 11:30 AM CDT) Glucose, POC 243(H) 70 - 199 mg/dL Blood 03/01/2025 11:3 0 AM CDT 03/01/2025 11:30 AM CDT Eagle Jerry MD LAB POCT ORDERABLES - DEVICE F inal Result Performing Organization Address [facility] de Phone Number [facility] [place] [employer] [place] [address] * POCT glucose (03/01/2025 7:49 AM CDT) Glucose, POC 105 70 - 199 mg/dL Blood 03/01/2025 7:49 AM CDT 03/01/2025 7:49 AM CDT Eagle Jerry MD LAB POCT ORDERABLES - DEVICE F inal Result Performing Organization Address [facility] de Phone Number [facility] [place] [employer] [address] * (ABNORMAL) CBC without differential (03/01/2025 6:30 AM CDT) WBC 6.61 3.80 - 9.90 K/cumm Hgb 8.1(L) 13.0 - 17.5 g/dL [facility] Hct 24.5(L) 38.9 - 50.3 % [facility] Plt 174 150 - 400 K/cumm [facility] MPV 11.4 9.1 - 12.3 fL [facility] RBC 2.62(L) 4.30 - 5.80 M/cumm [facility] MCV 93.5 81.3 - 96.4 fL [facility] MCH 30.9 27.1 - 33.3 pg [facility] MCHC 33.1 32.3 - 35.7 g/dL [facility] RDW CV 16.7(H) 11.1 - 14.9 % [facility] RDW SD 55.9(H) 35.7 - 48.1 fL [facility] NRBC abs 0.00 0.00 - 0.01 K/cumm [facility] Blood 03/01/2025 6:30 AM CDT 03/01/2025 6:44 AM CDT us Eagle Jerry MD LAB BLOOD ORDERABLES Final Res ult Performing Organization Address City/[facility]/ZIP Co de Phone Number [facility] Department [place] [address] * (ABNORMAL) POCT glucose (02/28/2025 8:40 PM CDT) Glucose, POC 228(H) 70 - 199 mg/dL Blood 02/28/2025 8:40 PM CDT 02/28/2025 8:40 PM CDT Eagle Jerry MD LAB POCT ORDERABLES - DEVICE F inal Result [facility] [place] [address] * POCT glucose (02/28/2025 5:17 PM CDT) Glucose, POC 166 70 - 199 mg/dL Blood 02/28/2025 5:17 PM CDT 02/28/2025 5:17 PM CDT Eagle Jerry MD LAB POCT ORDERABLES - DEVICE F inal Result Performing Organization Address [facility] Co de Phone Number [facility] [place] [address] * eGFR (02/28/2025 4:12 PM CDT) eGFR [...] ORDERABLES Final Res ult Performing Organization Address [facility]/ZIP Co de Phone Number [facility] [place] [address] * (ABNORMAL) CBC without differential (02/28/2025 4:12 PM CDT) WBC 8.22 3.80 - 9.90 K/cumm Hgb 7.7(L) 13.0 - 17.5 g/dL [facility] Hct 23.3(L) 38.9 - 50.3 % [facility] Plt 167 150 - 400 K/cumm [facility] MPV 11.6 9.1 - 12.3 fL [facility] RBC 2.45(L) 4.30 - 5.80 M/cumm [facility] MCV 95.1 81.3 - 96.4 fL [facility] MCH 31.4 27.1 - 33.3 pg [facility] MCHC 33.0 32.3 - 35.7 g/dL [facility] RDW CV 16.8(H) 11.1 - 14.9 % [facility] RDW SD 57.2(H) 35.7 - 48.1 fL [facility] NRBC abs 0.03(H) 0.00 - 0.01 K/cumm [facility] Blood 02/28/2025 4:12 PM CDT 02/28/2025 4:32 PM CDT us Eagle Jerry MD LAB BLOOD ORDERABLES Final Res ult [facility] Department [place] [address] * (ABNORMAL) Comprehensive metabolic panel (02/28/2025 4:12 PM CDT) Sodium 132(L) 135 - 145 mmol/L Potassium, pl 5.1(H) 3.3 - 4.9 mmol/L [facility] Chloride 99 97 - 110 mmol/L [facility] CO2 26 22 - 32 mmol/L [facility] Anion gap 7 2 - 15 mmol/L [facility] BUN 44(H) 6 - 25 mg/dL [facility] Creatinine 0.94 0.80 - 1.30 mg/dL [facility] Glucose 168 70 - 199 mg/dL [facility] Comment: Interpretive Data Fasting glucose >/= [...] Calcium 7.6(L) 8.5 - 10.3 mg/dL [facility] Bilirubin, total 0.6 0.1 - 1.2 mg/dL [facility] Protein, pl 6.6 6.5 - 8.5 g/dL [facility] Albumin 2.7(L) 3.5 - 5.0 g/dL [facility] Alk phos 99 40 - 130 Units/L [facility] ALT 60(H) 7 - 55 Units/L [facility] AST 60(H) 10 - 50 Units/L [facility] Blood 02/28/2025 4:12 PM CDT 02/28/2025 4:34 PM CDT Eagle Jerry MD LAB BLOOD ORDERABLES Final Res ult [facility] Department [place] [address] * POCT glucose (02/28/2025 11:31 AM CDT) Glucose, POC 161 70 - 199 mg/dL Blood 02/28/2025 11:3 1 AM CDT 02/28/2025 11:31 AM CDT Eagle Jerry MD LAB POCT ORDERABLES - DEVICE F inal Result Performing Organization Address City/[facility]/ZIP Co de Phone Number [facility] Department [place] [address] * EGD (02/28/2025 9:24 AM CDT) Anatomical Region Laterality Modality Other Narrative Procedure Note Abril Paz MD - 02/28/2025 9:24 AM CDT [facility] Patient Name: Jud Mace Procedure Date: 02/28/2025 9:24 AM Date of : 1955 Admit Type: Inpatient Age: 70 Gender: Male Attending MD: Apple Salazar Room: [facility] END[facility] Note Status: Finalized Procedure: Upper GI endoscopy Indications: Suspected upper gastrointestinal bleeding Referring MD: Eagle Jerry M.D. Providers: Abril Paz M.D., Eagle Batres M.D. Comorbidities COPD, CAD s/p CABG 2016, HFrEF 35%, cirrhosis, hypertension. Medicines: Monitored Anesthesia Care Complications: No immediate complications. Estimated Blood Loss: Estimated blood loss: none. Procedure: Pre-Anesthesia Assessment: - Ruth Protocol: - Pre-procedure Verification: Prior to theprocedure, [...] the physician, the nurse, the anesthesiologist, the circle edger and the composite technician in the endoscopysuite. - Prior to [...] passed under direct vision. The [id number] [id number] endoscope was introduced through the mouth, and [...] POCT ORDERABLES - DEVICE F inal Result [facility] [place] [address] * eGFR (02/27/2025 9:39 PM CDT) eGFR [...] Inclusion of Race in Diagnosing Kidney Disease, TANESHAN 2020). The CKD-EPI equation should not be used for patients with unstable renal function and has not been validated in children and those over 70. Current interpretive data was last reviewed 2021. Blood 02/27/2025 9:39 PM CDT 02/27/2025 11:33 PM CDT Eagle Jerry MD LAB BLOOD ORDERABLES Final Res ult Performing Organization Address [facility] de Phone Number [facility] [place] [address] * (ABNORMAL) Protime-INR (02/27/2025 9:39 PM CDT) PT 16.0(H) 9.7 - 13.0 sec INR 1.47(H) 0.90 - 1.20 [facility] Comment: Interpretive data Oral anticoagulant therapeutic ranges: Venous thromboembolism prophylaxis or treatment: 2.0-3.0 CARDIOLOGY Standard range: 2.0-3.0 High-intensity range: 2.5-3.5 Refer to indication-specific guidelines for appropriate target ranges for prosthetic heart valve replacement. Current interpretive data was last revised on 2019. Blood 02/27/2025 9:39 PM CDT 02/27/2025 11:32 PM CDT Eagle Jerry MD LAB BLOOD ORDERABLES Final Res ult Performing Organization Address [facility] de Phone Number [facility] Department [place] [address] * (ABNORMAL) CBC without differential (02/27/2025 9:39 PM CDT) WBC 9.62 3.80 - 9.90 K/cumm Hgb 7.2(L) 13.0 - 17.5 g/dL [facility] Hct 21.2(L) 38.9 - 50.3 % [facility] Plt 94(L) 150 - 400 K/cumm [facility] MPV 12.7(H) 9.1 - 12.3 fL [facility] RBC 2.28(L) 4.30 - 5.80 M/cumm [facility] MCV 93.0 81.3 - 96.4 fL [facility] MCH 31.6 27.1 - 33.3 pg [facility] MCHC 34.0 32.3 - 35.7 g/dL [facility] RDW CV 16.8(H) 11.1 - 14.9 % [facility] RDW SD 55.5(H) 35.7 - 48.1 fL [facility] NRBC abs 0.02(H) 0.00 - 0.01 K/cumm [facility] Blood 02/27/2025 9:39 PM CDT 02/27/2025 11:32 PM CDT Abril Paz MD LAB BLOOD ORDERABL ES Final Result Performing Organization Address City/[facility]/ZIP Co de Phone Number [facility] Department [place] [address] * (ABNORMAL) Magnesium (02/27/2025 9:39 PM CDT) [facility] Magnesium 2.6(H) 1.4 - 2.5 mg/dL Blood 02/27/2025 9:39 PM CDT 02/27/2025 11:33 PM CDT Abril Paz MD LAB BLOOD ORDERABL ES Final Result [facility] [place] [employer] [place] [address] * (ABNORMAL) Comprehensive metabolic panel (02/27/2025 9:39 PM CDT) [facility] Sodium 135 135 - 145 mmol/L Potassium, pl 4.7 3.3 - 4.9 mmol/L [facility] Chloride 101 97 - 110 mmol/L [facility] CO2 26 22 - 32 mmol/L [facility] Anion gap 8 2 - 15 mmol/L [facility] BUN 48(H) 6 - 25 mg/dL [facility] Creatinine 0.91 0.80 - 1.30 mg/dL [facility] Glucose 121 70 - 199 mg/dL [facility] Comment: Interpretive Data Fasting glucose >/= [...] 2022. Calcium 7.5(L) 8.5 - 10.3 mg/dL [facility] Bilirubin, total 0.6 0.1 - 1.2 mg/dL [facility] Protein, pl 6.3(L) 6.5 - 8.5 g/dL [facility] Albumin 2.8(L) 3.5 - 5.0 g/dL [facility] Alk phos 93 40 - 130 Units/L [facility] ALT 59(H) 7 - 55 Units/L [facility] AST 52(H) 10 - 50 Units/L [facility] Blood 02/27/2025 9:39 PM CDT 02/27/2025 11:33 PM CDT us Abril Paz MD LAB BLOOD ORDERABL ES Final Result [facility] Department of Laboratories [place], [place] [id number] * POCT glucose (02/27/2025 8:55 PM CDT) Glucose, POC 179 70 - 199 mg/dL Blood 02/27/2025 8:55 PM CDT 02/27/2025 8:55 PM CDT us Eagle Jerry MD LAB POCT ORDERABLES - DEVICE F inal Result Performing Organization Address [facility] de Phone Number [facility] [place] [employer] [address] * (ABNORMAL) POCT glucose (02/27/2025 4:24 PM CDT) Glucose, POC 251(H) 70 - 199 mg/dL Blood 02/27/2025 4:24 PM CDT 02/27/2025 4:24 PM CDT Eagle Jerry MD LAB POCT ORDERABLES - DEVICE F inal Result Performing Organization Address [facility] [place] [address] * (ABNORMAL) Hemoglobin and hematocrit (02/27/2025 3:01 PM CDT) Hgb 7.7(L) 13.0 - 17.5 g/dL Hct 22.8(L) 38.9 - 50.3 % [facility] Blood 02/27/2025 3:01 PM CDT 02/27/2025 3:26 PM CDT us Eagle Jerry MD LAB BLOOD ORDERABLES Final Res ult Performing Organization Address [facility] de Phone Number [facility] [place] [address] * XR Chest 1 View (02/27/2025 1:19 [...] (ABNORMAL) POCT glucose (02/27/2025 12:18 PM CDT) [facility] Glucose, POC 201(H) 70 - 199 mg/dL Blood 02/27/2025 12:1 8 PM CDT 02/27/2025 12:18 PM CDT us Eagle Jerry MD LAB POCT ORDERABLES - DEVICE F inal Result [facility] Department [place] [address] * Type and screen (02/27/2025 10:38 AM CDT) Kp, indirect Negative ABO Rh A Positive [facility] Blood 02/27/2025 10:3 8 AM CDT 02/27/2025 10:56 AM CDT Narrative [facility] - 02/27/2025 11:47 AM CDT Has the patient had Daratumumab or Isatuximab in the past 6 months?->Unknown Eagle Jerry MD LAB BLOOD BANK TEST ORDERABLES Final Result Performing Organization Address City/[facility] Co de Phone Number [facility] Department [place] [address] * POCT glucose (02/27/2025 7:55 AM CDT) Pathologist [facility] Glucose, POC 184 70 - 199 mg/dL Blood 02/27/2025 7:55 AM CDT 02/27/2025 7:55 AM CDT Eagle Jerry MD LAB POCT ORDERABLES - DEVICE F inal Result Performing Organization Address [facility] Co de Phone Number [facility] Department [place] [place] [address] * eGFR (02/27/2025 12:26 AM CDT) eGFR 83 >=60 mL/min/1. 73 m2 Comment: [...] ORDERABLES Asya l Result Performing Organization Address [facility] Co de Phone Number [facility] Department [place] [address] * (ABNORMAL) CBC without differential (02/27/2025 12:26 AM CDT) WBC 8.13 3.80 - 9.90 K/cumm Hgb 7.0(L) 13.0 - 17.5 g/dL [facility] Hct 20.7(L) 38.9 - 50.3 % [facility] Plt 110(L) 150 - 400 K/cumm [facility] MPV 11.9 9.1 - 12.3 fL [facility] RBC 2.23(L) 4.30 - 5.80 M/cumm [facility] MCV 92.8 81.3 - 96.4 fL [facility] MCH 31.4 27.1 - 33.3 pg [facility] MCHC 33.8 32.3 - 35.7 g/dL [facility] RDW CV 16.5(H) 11.1 - 14.9 % [facility] RDW SD 54.7(H) 35.7 - 48.1 fL [facility] NRBC abs 0.02(H) 0.00 - 0.01 K/cumm [facility] Blood 02/27/2025 12:2 6 AM CDT 02/27/2025 12:36 AM CDT Nolan Barrow MD LAB BLOOD ORDERABLES Asya l Result Performing Organization Address City/[facility]/ZIP Co de Phone Number [facility] Department [place] [address] * (ABNORMAL) Magnesium (02/27/2025 12:26 AM CDT) Pathologist [facility] Magnesium 2.6(H) 1.4 - 2.5 mg/dL Blood 02/27/2025 12:2 6 AM CDT 02/27/2025 12:36 AM CDT Abril Paz MD LAB BLOOD ORDERABL ES Final Result Performing Organization Address City/[facility] Co de Phone Number [facility] Department [place] [address] * (ABNORMAL) Comprehensive metabolic panel (02/27/2025 12:26 AM CDT) Pathologist [facility] Sodium 133(L) 135 - 145 mmol/L Potassium, pl 4.6 3.3 - 4.9 mmol/L [facility] Chloride 100 97 - 110 mmol/L [facility] CO2 27 22 - 32 mmol/L [facility] Anion gap 6 2 - 15 mmol/L [facility] BUN 61(H) 6 - 25 mg/dL [facility] Creatinine 0.97 0.80 - 1.30 mg/dL [facility] Glucose 182 70 - 199 mg/dL [facility] Comment: Interpretive Data Fasting glucose >/= [...] 2022. Calcium 7.5(L) 8.5 - 10.3 mg/dL [facility] Bilirubin, total 0.5 0.1 - 1.2 mg/dL [facility] Protein, pl 5.9(L) 6.5 - 8.5 g/dL [facility] Albumin 2.8(L) 3.5 - 5.0 g/dL [facility] Alk phos 84 40 - 130 Units/L [facility] ALT 60(H) 7 - 55 Units/L [facility] AST 54(H) 10 - 50 Units/L [facility] Blood 02/27/2025 12:2 6 AM CDT 02/27/2025 12:36 AM CDT Nolan Barrow MD LAB BLOOD ORDERABLES Asya l Result Performing Organization Address [facility] Co de Phone Number [facility] [place] [address] * POCT glucose (02/26/2025 8:32 PM CDT) Glucose, POC 180 70 - 199 mg/dL Blood 02/26/2025 8:32 PM CDT 02/26/2025 8:32 PM CDT Egale Jerry MD LAB POCT ORDERABLES - DEVICE F inal Result Performing Organization Address [facility] Co de Phone Number [facility] [place] [address] * POCT glucose (02/26/2025 5:01 PM CDT) Glucose, POC 143 70 - 199 mg/dL Blood 02/26/2025 5:01 PM CDT 02/26/2025 5:01 PM CDT Eagle Jerry MD LAB POCT ORDERABLES - DEVICE F inal Result Performing Organization Address [facility] Co de Phone Number [facility] Department [place] [address] * (ABNORMAL) POCT glucose (02/26/2025 11:27 AM CDT) Glucose, POC 279(H) 70 - 199 mg/dL Blood 02/26/2025 11:2 7 AM CDT 02/26/2025 11:27 AM CDT us Eagle Jerry MD LAB POCT ORDERABLES - DEVICE F inal Result Performing Organization Address City/[facility] Co de Phone Number [facility] Department [place] [address] * POCT glucose (02/26/2025 7:44 AM CDT) Glucose, POC 143 70 - 199 mg/dL Blood 02/26/2025 7:44 AM CDT 02/26/2025 7:44 AM CDT us Nolan Barrow MD LAB POCT ORDERABLES - DEV ICE Final Result Performing Organization Address [facility] de Phone Number [facility] Department [place] [address] * eGFR (02/26/2025 6:53 AM CDT) eGFR [...] ORDERABLES F inal Result Performing Organization Address City/[facility] Co de Phone Number [facility] [place] [address] * (ABNORMAL) Magnesium (02/26/2025 6:53 AM CDT) Pathologist [facility] Magnesium 2.8(H) 1.4 - 2.5 mg/dL Blood 02/26/2025 6:53 AM CDT 02/26/2025 6:58 AM CDT Emelia Hunter MD LAB BLOOD ORDERABLES F inal Result Performing Organization Address [facility] de Phone Number [facility] [place] [address] * (ABNORMAL) Basic metabolic panel (02/26/2025 6:53 AM CDT) Sodium 133(L) 135 - 145 mmol/L Potassium, pl 4.9 3.3 - 4.9 mmol/L [facility] Chloride 98 97 - 110 mmol/L [facility] CO2 29 22 - 32 mmol/L [facility] Anion gap 6 2 - 15 mmol/L [facility] BUN 66(H) 6 - 25 mg/dL [facility] Creatinine 1.05 0.80 - 1.30 mg/dL [facility] Glucose 147 70 - 199 mg/dL [facility] Comment: Interpretive Data Fasting glucose >/= [...] 2022. Calcium 7.9(L) 8.5 - 10.3 mg/dL [facility] Blood 02/26/2025 6:53 AM CDT 02/26/2025 6:58 AM CDT Emelia Hunter MD LAB BLOOD ORDERABLES F inal Result Performing Organization Address [facility] Co de Phone Number [facility] Department [place] [address] * POCT glucose (02/25/2025 7:58 PM CDT) Glucose, POC 154 70 - 199 mg/dL Blood 02/25/2025 7:58 PM CDT 02/25/2025 7:58 PM CDT Nolan Barrow MD LAB POCT ORDERABLES - DEV ICE Final Result Performing Organization Address [facility] Co de Phone Number [facility] Department [place] [place] [address] * POCT glucose (02/25/2025 4:26 PM CDT) Glucose, POC 166 70 - 199 mg/dL Blood 02/25/2025 4:26 PM CDT 02/25/2025 4:26 PM CDT Nolan Barrow MD LAB POCT ORDERABLES - DEV ICE Final Result Performing Organization Address [facility] Co de Phone Number [facility] Department [place] [address] * Infection Prevention Roberto auris PCR, surveillance Axilla/Groin (02/25/2025 12:40 PM CDT) Roberto auris DNA Not Detected Not Detected [facility] Comment: Interpretive Data Testing performed by [facility] using the Bal[employer] lakeshia 6800 Roberto auris assay. This assay detects DNA from Roberto auris using Real-Time PCR. This assay is laboratory developed and is not cleared by the [place] Food and Drug Administration. The performance characteristics have been verified by the [facility]. Axilla/Groin 02/25/2025 12:4 0 PM CDT 02/25/2025 1:04 PM CDT Narrative [facility] - 02/26/2025 1:42 PM CDT Order placed by [facility] due to ring surveillance. Instant Order Generic Provider LAB MICROBIOLOGY - GENERAL ORDERABLES Final Result Performing Organization Address City/[facility]/ZIP Co de Phone Number [facility] Department [place] [address] [facility] * (ABNORMAL) POCT glucose (02/25/2025 11:16 AM CDT) Pathologist [facility] Glucose, POC 204(H) 70 - 199 mg/dL Blood 02/25/2025 11:1 6 AM CDT 02/25/2025 11:16 AM CDT Nolan Barrow MD LAB POCT ORDERABLES - DEV ICE Final Result [facility] [place] [address] * (ABNORMAL) POCT glucose (02/25/2025 9:09 AM CDT) Glucose, POC 205(H) 70 - 199 mg/dL Blood 02/25/2025 9:09 AM CDT 02/25/2025 9:09 AM CDT us Nolan Barrow MD LAB POCT ORDERABLES - DEV ICE Final Result Performing Organization Address [facility] de Phone Number [facility] Department [place] [address] * eGFR (02/24/2025 8:06 PM CDT) eGFR [...] ORDERABLES Asya l Result Performing Organization Address [facility] Co de Phone Number [facility] Department [place] [address] * (ABNORMAL) CBC without differential (02/24/2025 8:06 PM CDT) WBC 13.73(H) 3.80 - 9.90 K/cumm Hgb 8.3(L) 13.0 - 17.5 g/dL [facility] Hct 24.3(L) 38.9 - 50.3 % [facility] Plt 96(L) 150 - 400 K/cumm [facility] MPV 12.4(H) 9.1 - 12.3 fL [facility] RBC 2.63(L) 4.30 - 5.80 M/cumm [facility] MCV 92.4 81.3 - 96.4 fL [facility] MCH 31.6 27.1 - 33.3 pg [facility] MCHC 34.2 32.3 - 35.7 g/dL [facility] RDW CV 16.1(H) 11.1 - 14.9 % [facility] RDW SD 53.3(H) 35.7 - 48.1 fL [facility] NRBC abs 0.08(H) 0.00 - 0.01 K/cumm [facility] Blood 02/24/2025 8:06 PM CDT 02/24/2025 8:22 PM CDT Edi Olvera MD LAB BLOOD ORDERABLES Asya l Result Performing Organization Address City/[facility]/ZIP Co de Phone Number [facility] Department [place] [address] * (ABNORMAL) Magnesium (02/24/2025 8:06 PM CDT) Pathologist [facility] Magnesium 2.9(H) 1.4 - 2.5 mg/dL Blood 02/24/2025 8:06 PM CDT 02/24/2025 8:22 PM CDT us Edi Olvera MD LAB BLOOD ORDERABLES Asya l Result [facility] [place] [address] * (ABNORMAL) Comprehensive metabolic panel (02/24/2025 8:06 PM CDT) Pathologist [facility] Sodium 132(L) 135 - 145 mmol/L Potassium, pl 4.9 3.3 - 4.9 mmol/L [facility] Chloride 97 97 - 110 mmol/L [facility] CO2 25 22 - 32 mmol/L [facility] Anion gap 10 2 - 15 mmol/L [facility] BUN 80(H) 6 - 25 mg/dL [facility] Creatinine 1.09 0.80 - 1.30 mg/dL [facility] Glucose 271(H) 70 - 199 mg/dL [facility] Comment: Interpretive Data Fasting glucose >/= [...] 2022. Calcium 8.4(L) 8.5 - 10.3 mg/dL [facility] Bilirubin, total 0.5 0.1 - 1.2 mg/dL [facility] Protein, pl 6.4(L) 6.5 - 8.5 g/dL [facility] Albumin 2.8(L) 3.5 - 5.0 g/dL [facility] Alk phos 69 40 - 130 Units/L [facility] ALT 45 7 - 55 Units/L [facility] AST 46 10 - 50 Units/L [facility] Blood 02/24/2025 8:06 PM CDT 02/24/2025 8:22 PM CDT us Edi Olvera MD LAB BLOOD ORDERABLES Asya ma Result [facility] [place] [address] * (ABNORMAL) POCT glucose (02/24/2025 8:05 PM CDT) Pathologist [facility] Glucose, POC 283(H) 70 - 199 mg/dL Blood 02/24/2025 8:05 PM CDT 02/24/2025 8:05 PM CDT us Edi Olvera MD LAB POCT ORDERABLES - DEV ICE Final Result Performing Organization Address [facility] de Phone Number [facility] [place] [address] * POCT glucose (02/24/2025 5:56 PM CDT) Glucose, POC 180 70 - 199 mg/dL Blood 02/24/2025 5:56 PM CDT 02/24/2025 5:56 PM CDT us Edi Olvera MD LAB POCT ORDERABLES - DEV ICE Final Result Performing Organization Address [facility] de Phone Number [facility] Department [place] [address] * POCT glucose (02/24/2025 12:31 PM CDT) Glucose, POC 182 70 - 199 mg/dL Blood 02/24/2025 12:3 1 PM CDT 02/24/2025 12:31 PM CDT Edi Olvera MD LAB POCT ORDERABLES - DEV ICE Final Result Performing Organization Address [facility] [place] [address] * XR Chest 1 View (02/24/2025 9:46 [...] CBC without differential (02/24/2025 8:19 AM CDT) [facility] WBC 12.41(H) 3.80 - 9.90 K/cumm Hgb 8.4(L) 13.0 - 17.5 g/dL [facility] Hct 25.2(L) 38.9 - 50.3 % [facility] Plt 85(L) 150 - 400 K/cumm [facility] MPV 11.8 9.1 - 12.3 fL [facility] RBC 2.72(L) 4.30 - 5.80 M/cumm [facility] MCV 92.6 81.3 - 96.4 fL [facility] MCH 30.9 27.1 - 33.3 pg [facility] MCHC 33.3 32.3 - 35.7 g/dL [facility] RDW CV 15.9(H) 11.1 - 14.9 % [facility] RDW SD 53.0(H) 35.7 - 48.1 fL [facility] NRBC abs 0.04(H) 0.00 - 0.01 K/cumm [facility] Blood 02/24/2025 8:19 AM CDT 02/24/2025 9:25 AM CDT us Edi Olvera MD LAB BLOOD ORDERABLES Asya l Result Performing Organization Address [facility] de Phone Number [facility] Department [place] [address] * POCT glucose (02/24/2025 7:37 AM CDT) Glucose, POC 172 70 - 199 mg/dL Blood 02/24/2025 7:37 AM CDT 02/24/2025 7:37 AM CDT Result Diane Olvera MD LAB POCT ORDERABLES - DEV ICE Final Result Performing Organization Address [facility] de Phone Number [facility] Department [place] [address] * Calcium, ionized, whole blood (02/23/2025 9:17 PM CDT) Ca, ionized, bld 4.68 4.50 - 5.10 mg/dL Blood 02/23/2025 9:17 PM CDT 02/23/2025 9:27 PM CDT us Edi Olvera MD LAB BLOOD ORDERABLES Asya l Result Performing Organization Address [facility] de Phone Number [facility] Department [place] [address] * eGFR (02/23/2025 9:17 PM CDT) eGFR [...] ORDERABLES Asya l Result Performing Organization Address [facility] Co de Phone Number [facility] Department [place] [address] * (ABNORMAL) CBC without differential (02/23/2025 9:17 PM CDT) Pathologist [facility] WBC 12.00(H) 3.80 - 9.90 K/cumm Hgb 9.0(L) 13.0 - 17.5 g/dL [facility] Hct 26.2(L) 38.9 - 50.3 % [facility] Plt 83(L) 150 - 400 K/cumm [facility] MPV 11.5 9.1 - 12.3 fL [facility] RBC 2.83(L) 4.30 - 5.80 M/cumm [facility] MCV 92.6 81.3 - 96.4 fL [facility] MCH 31.8 27.1 - 33.3 pg [facility] MCHC 34.4 32.3 - 35.7 g/dL [facility] RDW CV 15.6(H) 11.1 - 14.9 % [facility] RDW SD 52.4(H) 35.7 - 48.1 fL [facility] NRBC abs 0.04(H) 0.00 - 0.01 K/cumm [facility] Blood 02/23/2025 9:17 PM CDT 02/23/2025 9:30 PM CDT us Edi Olvera MD LAB BLOOD ORDERABLES Asya l Result Performing Organization Address [facility] Co de Phone Number [facility] Department [place] [employer] [place] [address] * (ABNORMAL) Magnesium (02/23/2025 9:17 PM CDT) [facility] Magnesium 3.0(H) 1.4 - 2.5 mg/dL Blood 02/23/2025 9:17 PM CDT 02/23/2025 9:30 PM CDT Edi Olvera MD LAB BLOOD ORDERABLES Asya l Result [facility] Department [place] [address] * (ABNORMAL) Comprehensive metabolic panel (02/23/2025 9:17 PM CDT) [facility] Sodium 136 135 - 145 mmol/L Potassium, pl 4.9 3.3 - 4.9 mmol/L [facility] Chloride 102 97 - 110 mmol/L [facility] CO2 27 22 - 32 mmol/L [facility] Anion gap 7 2 - 15 mmol/L [facility] BUN 84(H) 6 - 25 mg/dL [facility] Creatinine 1.09 0.80 - 1.30 mg/dL [facility] Glucose 173 70 - 199 mg/dL [facility] Comment: Interpretive Data Fasting glucose >/= [...] 2022. Calcium 8.3(L) 8.5 - 10.3 mg/dL [facility] Bilirubin, total 0.5 0.1 - 1.2 mg/dL [facility] Protein, pl 6.0(L) 6.5 - 8.5 g/dL [facility] Albumin 2.4(L) 3.5 - 5.0 g/dL [facility] Alk phos 67 40 - 130 Units/L [facility] ALT 46 7 - 55 Units/L [facility] AST 46 10 - 50 Units/L [facility] Blood 02/23/2025 9:17 PM CDT 02/23/2025 9:30 PM CDT us Edi Olvera MD LAB BLOOD ORDERABLES Asya l Result [facility] [place] [address] * POCT glucose (02/23/2025 8:33 PM CDT) [facility] Glucose, POC 198 70 - 199 mg/dL Blood 02/23/2025 8:33 PM CDT 02/23/2025 8:33 PM CDT us Edi Raju Chenna MD LAB POCT ORDERABLES - DEV ICE Final Result [facility] [place] [address] * (ABNORMAL) POCT glucose (02/23/2025 4:25 PM CDT) Glucose, POC 225(H) 70 - 199 mg/dL Blood 02/23/2025 4:25 PM CDT 02/23/2025 4:25 PM CDT us Edi Olvera MD LAB POCT ORDERABLES - DEV ICE Final Result Performing Organization Address [facility] Co de Phone Number [facility] [place] [address] * (ABNORMAL) POCT glucose (02/23/2025 12:07 PM CDT) Glucose, POC 251(H) 70 - 199 mg/dL Blood 02/23/2025 12:0 7 PM CDT 02/23/2025 12:07 PM CDT us Edi Olvera MD LAB POCT ORDERABLES - DEV ICE Final Result Performing Organization Address City/[facility]/ZIP Co de Phone Number [facility] [place] [address] * (ABNORMAL) Iron profile w/ IBC (02/23/2025 8:09 AM CDT) Iron 28(L) 50 - 150 mcg/dL TIBC 229(L) 250 - 400 mcg/dL [facility] Transferrin saturation 12(L) 20 - 50 % [facility] Blood 02/23/2025 8:09 AM CDT 02/23/2025 8:17 AM CDT us Edi Olvera MD LAB BLOOD ORDERABLES Asya l Result [facility] Department [place] [address] * (ABNORMAL) CBC without differential (02/23/2025 8:09 AM CDT) WBC 13.25(H) 3.80 - 9.90 K/cumm Hgb 10.2(L) 13.0 - 17.5 g/dL [facility] Hct 29.8(L) 38.9 - 50.3 % [facility] Plt 92(L) 150 - 400 K/cumm [facility] MPV 12.0 9.1 - 12.3 fL [facility] RBC 3.20(L) 4.30 - 5.80 M/cumm [facility] MCV 93.1 81.3 - 96.4 fL [facility] MCH 31.9 27.1 - 33.3 pg [facility] MCHC 34.2 32.3 - 35.7 g/dL [facility] RDW CV 15.6(H) 11.1 - 14.9 % [facility] RDW SD 52.9(H) 35.7 - 48.1 fL [facility] NRBC abs 0.03(H) 0.00 - 0.01 K/cumm [facility] Blood 02/23/2025 8:09 AM CDT 02/23/2025 8:17 AM CDT Edi Olvera MD LAB BLOOD ORDERABLES Asya l Result [facility] [place] [address] * Folate (02/23/2025 8:09 AM CDT) Folic acid 13.1 >=5.0 ng/mL Blood 02/23/2025 8:09 AM CDT 02/23/2025 8:17 AM CDT us Edi Olvera MD LAB BLOOD ORDERABLES Asya l Result Performing Organization Address [facility] Co de Phone Number [facility] Department [place] [address] * Ferritin (02/23/2025 8:09 AM CDT) Ferritin 143 30 - 400 ng/mL Blood 02/23/2025 8:09 AM CDT 02/23/2025 8:17 AM CDT us Edi Olvera MD LAB BLOOD ORDERABLES Asya l Result Performing Organization Address [facility] de Phone Number [facility] Department [place] [address] * (ABNORMAL) Vitamin B12 (02/23/2025 8:09 AM CDT) Vitamin B12 >2,000(H) 230 - 1,250 pg/mL Blood 02/23/2025 8:09 AM CDT 02/23/2025 8:17 AM CDT us Edi Olvera MD LAB BLOOD ORDERABLES Asya l Result Performing Organization Address [facility] de Phone Number [facility] Department [place] [address] * POCT glucose (02/23/2025 8:08 AM CDT) Glucose, POC 167 70 - 199 mg/dL Blood 02/23/2025 8:08 AM CDT 02/23/2025 8:08 AM CDT us Edi Olvera MD LAB POCT ORDERABLES - DEV ICE Final Result Performing Organization Address [facility] Co de Phone Number [facility] Department [place] [address] * eGFR (02/23/2025 6:17 AM CDT) eGFR [...] MD LAB BLOOD ORDERABLES Asya l Result [facility] [place] [address] * (ABNORMAL) Magnesium (02/23/2025 6:17 AM CDT) Magnesium 3.0(H) 1.4 - 2.5 mg/dL Blood 02/23/2025 6:17 AM CDT 02/23/2025 6:41 AM CDT Edi Olvera MD LAB BLOOD ORDERABLES Asya l Result [facility] [place] [address] * Blood gas, venous (02/23/2025 6:17 AM CDT) pH, Venous 7.40 7.32 - 7.43 PCO2, Venous 46 40 - 50 mmHg [facility] PO2, Venous 39 mmHg [facility] Comment: Interpretive Data No Reference Range Established Current Interpretive Data was last revised on 2018. HCO3 Venous, Calculated 29 20 - 30 mmol/L [facility] BE, venous 3 mmol/L [facility] Comment: Interpretive Data No Reference Range Established Current Interpretive Data was last revised on 2018. Blood 02/23/2025 6:17 AM CDT 02/23/2025 6:31 AM CDT Edi Olvera MD LAB BLOOD ORDERABLES Asya l Result [facility] Department [place] [address] * (ABNORMAL) Comprehensive metabolic panel (02/23/2025 6:17 AM CDT) Pathologist [facility] Sodium 132(L) 135 - 145 mmol/L Potassium, pl 4.6 3.3 - 4.9 mmol/L [facility] Chloride 98 97 - 110 mmol/L [facility] CO2 28 22 - 32 mmol/L [facility] Anion gap 6 2 - 15 mmol/L [facility] BUN 81(H) 6 - 25 mg/dL [facility] Creatinine 1.13 0.80 - 1.30 mg/dL [facility] Glucose 191 70 - 199 mg/dL [facility] Comment: Interpretive Data Fasting glucose >/= [...] 2022. Calcium 8.0(L) 8.5 - 10.3 mg/dL [facility] Bilirubin, total 0.6 0.1 - 1.2 mg/dL [facility] Protein, pl 6.1(L) 6.5 - 8.5 g/dL [facility] Albumin 2.4(L) 3.5 - 5.0 g/dL [facility] Alk phos 80 40 - 130 Units/L [facility] ALT 52 7 - 55 Units/L [facility] AST 49 10 - 50 Units/L [facility] Blood 02/23/2025 6:17 AM CDT 02/23/2025 6:41 AM CDT Edi Olvera MD LAB BLOOD ORDERABLES Asya l Result Performing Organization Address City/[facility]/ZIP Co de Phone Number [facility] Department [place] [address] * POCT glucose (02/23/2025 3:43 AM CDT) Glucose, POC 195 70 - 199 mg/dL Blood 02/23/2025 3:43 AM CDT 02/23/2025 3:43 AM CDT Edi Olvera MD LAB POCT ORDERABLES - DEV ICE Final Result [facility] Department [place] [place] [address] * POCT glucose (02/23/2025 12:02 AM CDT) Glucose, POC 194 70 - 199 mg/dL Blood 02/23/2025 12:0 2 AM CDT 02/23/2025 12:02 AM CDT us Edi Olvera MD LAB POCT ORDERABLES - DEV ICE Final Result [facility] [place] [address] * (ABNORMAL) CBC without differential (02/22/2025 10:18 PM CDT) WBC 12.55(H) 3.80 - 9.90 K/cumm Hgb 10.1(L) 13.0 - 17.5 g/dL [facility] Hct 30.0(L) 38.9 - 50.3 % [facility] Plt 91(L) 150 - 400 K/cumm [facility] MPV 12.2 9.1 - 12.3 fL [facility] RBC 3.22(L) 4.30 - 5.80 M/cumm [facility] MCV 93.2 81.3 - 96.4 fL [facility] MCH 31.4 27.1 - 33.3 pg [facility] MCHC 33.7 32.3 - 35.7 g/dL [facility] RDW CV 15.6(H) 11.1 - 14.9 % [facility] RDW SD 53.1(H) 35.7 - 48.1 fL [facility] NRBC abs 0.02(H) 0.00 - 0.01 K/cumm [facility] Blood 02/22/2025 10:1 8 PM CDT 02/22/2025 10:39 PM CDT us Edi Olvera MD LAB BLOOD ORDERABLES Asya l Result [facility] [place] [address] * (ABNORMAL) Blood gas, venous (02/22/2025 10:18 PM CDT) pH, Venous 7.35 7.32 - 7.43 PCO2, Venous 52(H) 40 - 50 mmHg [facility] PO2, Venous 41 mmHg [facility] Comment: Interpretive Data No Reference Range Established Current Interpretive Data was last revised on 2018. HCO3 Venous, Calculated 30 20 - 30 mmol/L [facility] BE, venous 2 mmol/L [facility] Comment: Interpretive Data No Reference Range Established Current Interpretive Data was last revised on 2018. Blood 02/22/2025 10:1 8 PM CDT 02/22/2025 10:31 PM CDT us Edi Olvera MD LAB BLOOD ORDERABLES Asya l Result Performing Organization Address City/[facility]/ZIP Co de Phone Number [facility] [place] [address] * POCT glucose (02/22/2025 9:47 PM CDT) Glucose, POC 159 70 - 199 mg/dL Blood 02/22/2025 9:47 PM CDT 02/22/2025 9:47 PM CDT us Edi Olvera MD LAB POCT ORDERABLES - DEV ICE Final Result Performing Organization Address [facility] Co de Phone Number [facility] [place] [address] * (ABNORMAL) POCT glucose (02/22/2025 4:32 PM CDT) Glucose, POC 208(H) 70 - 199 mg/dL Blood 02/22/2025 4:32 PM CDT 02/22/2025 4:32 PM CDT us Edi Olvera MD LAB POCT ORDERABLES - DEV ICE Final Result Performing Organization Address City/[facility] Co de Phone Number [facility] Department [place] [address] * (ABNORMAL) CBC without differential (02/22/2025 3:32 PM CDT) [facility] WBC 11.82(H) 3.80 - 9.90 K/cumm Hgb 10.3(L) 13.0 - 17.5 g/dL [facility] Hct 30.6(L) 38.9 - 50.3 % [facility] Plt 100(L) 150 - 400 K/cumm [facility] MPV 12.3 9.1 - 12.3 fL [facility] RBC 3.27(L) 4.30 - 5.80 M/cumm [facility] MCV 93.6 81.3 - 96.4 fL [facility] MCH 31.5 27.1 - 33.3 pg [facility] MCHC 33.7 32.3 - 35.7 g/dL [facility] RDW CV 15.5(H) 11.1 - 14.9 % [facility] RDW SD 53.1(H) 35.7 - 48.1 fL [facility] NRBC abs 0.03(H) 0.00 - 0.01 K/cumm [facility] Blood 02/22/2025 3:32 PM CDT 02/22/2025 3:42 PM CDT Edi Olvera MD LAB BLOOD ORDERABLES Asya ma Result Performing Organization Address City/State/[facility] Co de Phone Number [facility] [place] [address] * XR Chest 1 View (02/22/2025 1:10 [...] 13.0 sec INR 1.29(H) 0.90 - 1.20 [facility] Comment: Interpretive data Oral anticoagulant [...] ORDERABLES Asya l Result Performing Organization Address City/[facility]/ZIP Co de Phone Number [facility] [place] [address] * POCT glucose (02/22/2025 12:01 PM CDT) [facility] Glucose, POC 188 70 - 199 mg/dL Blood 02/22/2025 12:0 1 PM CDT 02/22/2025 12:01 PM CDT Edi Olvera MD LAB POCT ORDERABLES - DEV ICE Final Result Performing Organization Address [facility] de Phone Number [facility] [place] [address] * Pneumonia PCR Sputum (02/22/2025 8:52 AM CDT) [facility] C. pneumoniae DNA Not Detected Not Detected Legionella pneumophila DNA Not Detected Not Detected [facility] M. pneumoniae DNA Not Detected Not Detected [facility] Adenovirus DNA Not Detected Not Detected [facility] Coronavirus (229E, OC43, HKU1, NL63) RNA Not Detected Not Detected [facility] Metapneumovirus RNA Not Detected Not Detected [facility] Rhinovirus/Enterov irus RNA Not Detected Not Detected [facility] Influenza A RNA Not Detected Not Detected [facility] Influenza B RNA Not Detected Not Detected [facility] Parainfluenza virus (1-4) RNA Not Detected Not Detected [facility] RSV RNA Not Detected Not Detected [facility] Sputum 02/22/2025 8:52 AM CDT 02/22/2025 10:27 AM CDT Narrative [facility] - 02/22/2025 11:51 AM CDT The [...] of this assay have been determined by [facility]. Current interpretive data was last revised on 2024. Hood Pacheco MD LAB MICROBIOLOGY - GENERAL ORDER MICHELLE Final Result [facility] [place] [address] * (ABNORMAL) Pneumonia PCR with aerobic culture and Gram stain Sputum (02/22/2025 8:52 AM CDT) Direct Specimen Exam Molecular Analysis: 10^6 copies/mL Streptococcus pneumoniae Correlation of molecular analysis with final culture results is recommended. Direct Specimen Exam Stain: Few polymorphonuclear leukocytes seen. Few squamous epithelial cells seen. Rare mixed bacterial janet seen on Gram stain. [facility] Report Final Report: Growth indicates upper respiratory janet. (.) [facility] Organism GROWTH INDICATES UPPER RESPIRATORY JANET. [facility] Sputum 02/22/2025 8:52 AM CDT 02/22/2025 9:52 AM CDT Narrative [facility] - 02/24/2025 10:18 AM CDT When rapid molecular testing results are reported, testing completed using the [employer] FilmArray Pneumonia Panel. This molecular assay detects: [...] performance characteristics have been confirmed by the [facility]. The performance of the FilmArray Pneumonia Panel has not been established for monitoring treatment of infection and bacterial nucleic acids may persist independent of organism viability. Hood Pacheco MD LAB MICROBIOLOGY - GENERAL ORDER MICHELLE Final Result [facility] Department of Laboratories [place], [place] [id number] * C. difficile testing Stool (02/22/2025 8:52 AM CDT) [facility] Result Negative Negative Toxin Result Negative Negative [facility] C. diff result Negative, free toxin Negative, free toxin [facility] C. diff interp Negative for toxigenic Clostridioides (Clostridium) difficile. Analysis was performed using a glutamate dehydrogenase antigen detection assay combined with a C. difficile toxin detection assay. [facility] Stool 02/22/2025 8:52 AM CDT 02/22/2025 9:56 AM CDT Divine Ventura NP LAB MICROBIOLOGY - GENERAL ORD ERABLES Final Result Performing Organization Address City/[facility] Co de Phone Number [facility] [place] [address] * Norovirus PCR Stool (02/22/2025 8:52 AM CDT) [facility] Norovirus GI RNA Not Detected Not Detected [facility] Norovirus GII RNA Not Detected Not Detected [facility] Comment: Interpretive data: Testing performed at the [facility] using the [employer] Xpert Norovirus Assay. This assay uses nucleic [...] ORD ERABLES Final Result Performing Organization Address City/[facility]/ZIP Co de Phone Number [facility] [place] [address] [facility] * Infection Prevention VRE Culture Stool (02/22/2025 8:47 AM CDT) Report Final Report: Negative Stool 02/22/2025 8:47 AM CDT 02/22/2025 12:33 PM CDT Narrative [facility] - 02/24/2025 3:34 PM CDT Surveillance culture for Infection Prevention purposes only; results indicate colonization, not infection requiring treatment. Testing performed by [facility]biology Laboratory ([phone]). us Edi Olvera MD LAB MICROBIOLOGY - GENERA L ORDERABLES Final Result Performing Organization Address [facility] Co de Phone Number [facility] [place] [employer] [place] [address] * POCT glucose (02/22/2025 8:15 AM CDT) [facility] Glucose, POC 126 70 - 199 mg/dL Blood 02/22/2025 8:15 AM CDT 02/22/2025 8:15 AM CDT Edi Olvera MD LAB POCT ORDERABLES - DEV ICE Final Result Performing Organization Address [facility] de Phone Number [facility] Department [place] [address] * Lactate (02/22/2025 6:21 AM CDT) [facility] Lactate 1.6 0.7 - 2.0 mmol/L Blood 02/22/2025 6:21 AM CDT 02/22/2025 6:45 AM CDT Hood Pacheco MD LAB BLOOD ORDERABLES Final Resul t Performing Organization Address [facility] Co de Phone Number [facility] Department [place] [address] * (ABNORMAL) eGFR (02/22/2025 6:21 AM CDT) [...] ORDERABLES Final Resul t Performing Organization Address City/[facility] Co de Phone Number [facility] [place] [address] * HIV 1/2 Antibody plus p24 Antigen Blood (02/22/2025 6:21 AM CDT) HIV 1/2 ab + p24 ag Nonreactive Nonreactive Comment:Nonreactive for HIV- 1 antigen and HIV-1/HIV-2 antibodies. No laboratory evidence of HIV infection. If acute HIV infection is suspected, consider testing for HIV-1 RNA. Current interpretive data was last revised on 22. Blood 02/22/2025 6:21 AM CDT 02/22/2025 6:46 AM CDT us Hood Pacheco MD LAB MICROBIOLOGY - GENERAL ORDER MICHELLE Final Result [facility] [place] [address] * Hepatitis C antibody Blood (02/22/2025 6:21 AM CDT) [facility] Hep C Ab Nonreactive Nonreactive Comment:Antibodies to HCV no t detected. Does NOT exclude the possibility of recent exposure to HCV. Current interpretive data was last revised on 22 Blood 02/22/2025 6:21 AM CDT 02/22/2025 7:57 AM CDT Hood Pacheco MD LAB MICROBIOLOGY - GENERAL ORDER [place] [address] * RPR Blood (02/22/2025 6:21 AM CDT) [facility] RPR Nonreactive Nonreactive Blood 02/22/2025 6:21 AM CDT 02/22/2025 6:46 AM CDT Hood Pacheco MD LAB MICROBIOLOGY - GENERAL ORDER MICHELLE Final Result Performing Organization Address City/[facility]/ZIP Co de Phone Number [facility] [place] [address] * Hepatitis B Surface Antigen Blood (02/22/2025 6:21 AM CDT) [facility] HepBsAg Nonreactive Nonreactive Blood 02/22/2025 6:21 AM CDT 02/22/2025 7:57 AM CDT Hood Pacheco MD LAB MICROBIOLOGY - GENERAL ORDER MICHELLE Final Result [facility] [place] [address] * (ABNORMAL) CBC without differential (02/22/2025 6:21 AM CDT) WBC 11.02(H) 3.80 - 9.90 K/cumm Hgb 10.1(L) 13.0 - 17.5 g/dL [facility] Hct 30.2(L) 38.9 - 50.3 % [facility] Plt 82(L) 150 - 400 K/cumm [facility] MPV 11.9 9.1 - 12.3 fL [facility] RBC 3.23(L) 4.30 - 5.80 M/cumm [facility] MCV 93.5 81.3 - 96.4 fL [facility] MCH 31.3 27.1 - 33.3 pg [facility] MCHC 33.4 32.3 - 35.7 g/dL [facility] RDW CV 15.5(H) 11.1 - 14.9 % [facility] RDW SD 52.8(H) 35.7 - 48.1 fL [facility] NRBC abs 0.02(H) 0.00 - 0.01 K/cumm [facility] Blood 02/22/2025 6:21 AM CDT 02/22/2025 7:03 AM CDT us Hood Pacheco MD LAB BLOOD ORDERABLES Final Resul t [facility] [place] [address] * (ABNORMAL) Blood gas, venous (02/22/2025 6:21 AM CDT) pH, Venous 7.35 7.32 - 7.43 PCO2, Venous 51(H) 40 - 50 mmHg [facility] PO2, Venous 39 mmHg [facility] Comment: Interpretive Data No Reference Range Established Current Interpretive Data was last revised on 2018. HCO3 Venous, Calculated 29 20 - 30 mmol/L [facility] BE, venous 2 mmol/L [facility] Comment: Interpretive Data No Reference Range Established Current Interpretive Data was last revised on 2018. Blood 02/22/2025 6:21 AM CDT 02/22/2025 6:40 AM CDT Edi Olvera MD LAB BLOOD ORDERABLES Asya ma Result [facility] [place] [address] * (ABNORMAL) Comprehensive metabolic panel (02/22/2025 6:21 AM CDT) Pathologist [facility] Sodium 131(L) 135 - 145 mmol/L Potassium, pl 4.4 3.3 - 4.9 mmol/L [facility] Chloride 98 97 - 110 mmol/L [facility] CO2 30 22 - 32 mmol/L [facility] Anion gap 3 2 - 15 mmol/L [facility] BUN 72(H) 6 - 25 mg/dL [facility] Creatinine 1.35(H) 0.80 - 1.30 mg/dL [facility] Glucose 113 70 - 199 mg/dL [facility] Comment: Interpretive Data Fasting glucose >/= [...] 2022. Calcium 8.0(L) 8.5 - 10.3 mg/dL [facility] Bilirubin, total 0.6 0.1 - 1.2 mg/dL [facility] Protein, pl 5.8(L) 6.5 - 8.5 g/dL [facility] Albumin 2.4(L) 3.5 - 5.0 g/dL [facility] Alk phos 57 40 - 130 Units/L [facility] ALT 53 7 - 55 Units/L [facility] AST 57(H) 10 - 50 Units/L [facility] Blood 02/22/2025 6:21 AM CDT 02/22/2025 7:08 AM CDT Hood Pacheco MD LAB BLOOD ORDERABLES Final Resul t Performing Organization Address [facility] Co de Phone Number [facility] [place] [address] * (ABNORMAL) Lactate (02/22/2025 12:55 AM CDT) Lactate 2.6(H) 0.7 - 2.0 mmol/L Blood 02/22/2025 12:5 5 AM CDT 02/22/2025 1:16 AM CDT Hood Pacheco MD LAB BLOOD ORDERABLES Final Resul t Performing Organization Address [facility] de Phone Number [facility] [place] [address] * Oxyhemoglobin, central venous (02/21/2025 8:07 PM CDT) Oxyhemoglobin, CV 77.9 % Comment: Interpretive Data No reference range established. Current interpretive data was last revised 2020. Blood 02/21/2025 8:07 PM CDT 02/21/2025 8:16 PM CDT Edi Olvera MD LAB BLOOD ORDERABLES Asya l Result Performing Organization Address [facility] [place] [address] * (ABNORMAL) Lactate (02/21/2025 8:07 PM CDT) Lactate 2.5(H) 0.7 - 2.0 mmol/L Blood 02/21/2025 8:07 PM CDT 02/21/2025 8:18 PM CDT us Edi Olvera MD LAB BLOOD ORDERABLES Asya l Result Performing Organization Address City/[facility] Co de Phone Number [facility] Department [place] [address] * (ABNORMAL) eGFR (02/21/2025 8:07 PM CDT) Pathologist [facility] eGFR 53(L) >=60 mL/min/1. 73 [...] ORDERABLES Final Resul t Performing Organization Address [facility]/ZIP Co de Phone Number [facility] [place] [address] * (ABNORMAL) CBC without differential (02/21/2025 8:07 PM CDT) Pathologist [facility] WBC 14.26(H) 3.80 - 9.90 K/cumm Hgb 11.1(L) 13.0 - 17.5 g/dL [facility] [facility] Hct 33.3(L) 38.9 - 50.3 % [facility] Plt 107(L) 150 - 400 K/cumm [facility] MPV 12.6(H) 9.1 - 12.3 fL [facility] RBC 3.51(L) 4.30 - 5.80 M/cumm [facility] MCV 94.9 81.3 - 96.4 fL [facility] MCH 31.6 27.1 - 33.3 pg [facility] MCHC 33.3 32.3 - 35.7 g/dL [facility] RDW CV 15.6(H) 11.1 - 14.9 % [facility] RDW SD 53.3(H) 35.7 - 48.1 fL [facility] NRBC abs 0.02(H) 0.00 - 0.01 K/cumm [facility] Blood 02/21/2025 8:07 PM CDT 02/21/2025 8:18 PM CDT Hood Pacheco MD LAB BLOOD ORDERABLES Final Resul t [facility] Department [place] [address] * (ABNORMAL) Comprehensive metabolic panel (02/21/2025 8:07 PM CDT) Sodium 127(L) 135 - 145 mmol/L Potassium, pl 4.6 3.3 - 4.9 mmol/L [facility] Chloride 95(L) 97 - 110 mmol/L [facility] CO2 27 22 - 32 mmol/L [facility] Anion gap 5 2 - 15 mmol/L [facility] BUN 66(H) 6 - 25 mg/dL [facility] Creatinine 1.41(H) 0.80 - 1.30 mg/dL [facility] Glucose 182 70 - 199 mg/dL [facility] Comment: Interpretive Data Fasting glucose >/= [...] 2022. Calcium 8.0(L) 8.5 - 10.3 mg/dL [facility] Bilirubin, total 0.8 0.1 - 1.2 mg/dL [facility] Protein, pl 6.3(L) 6.5 - 8.5 g/dL [facility] Albumin 2.6(L) 3.5 - 5.0 g/dL [facility] Alk phos 57 40 - 130 Units/L [facility] ALT 48 7 - 55 Units/L [facility] AST 54(H) 10 - 50 Units/L [facility] Blood 02/21/2025 8:07 PM CDT 02/21/2025 8:18 PM CDT us Hood Pacheco MD LAB BLOOD ORDERABLES Final Resul t [facility] Department [place] [place] [address] * POCT glucose (02/21/2025 8:06 PM CDT) Glucose, POC 166 70 - 199 mg/dL Blood 02/21/2025 8:06 PM CDT 02/21/2025 8:06 PM CDT us Edi Olvera MD LAB POCT ORDERABLES - DEV ICE Final Result [facility] Department [place] [place] [address] * Infection Prevention Roberto auris PCR, surveillance Axilla/Groin (02/21/2025 6:52 PM CDT) Roberto auris DNA Not Detected Not Detected [facility] Comment: Interpretive Data Testing performed by [facility] Infectious Disease [facility] using the Baltazar lakeshia [id number] Roberto auris assay. This assay detects DNA from Roberto auris using Real-Time PCR. This assay is laboratory developed and is not cleared by the [place] Food and Drug Administration. The performance characteristics have been verified by the [facility]ious Disease [facility]. Axilla/Groin 02/21/2025 6:52 PM CDT 02/21/2025 7:08 PM CDT Espinoza Salazar MD LAB MICROBIOLOGY - GENERAL ORDER MICHELLE Final Result Performing Organization Address City/[facility] Co de Phone Number [facility] Department [place] [address] [facility] * POCT glucose (02/21/2025 3:34 PM CDT) Glucose, POC 133 70 - 199 mg/dL Blood 02/21/2025 3:34 PM CDT 02/21/2025 3:34 PM CDT Result [facility] Edi Olvera MD LAB POCT ORDERABLES - DEV ICE Final Result Performing Organization Address [facility] Co de Phone Number [facility] Department [place] [address] * Oxyhemoglobin, central venous (02/21/2025 1:09 PM CDT) Oxyhemoglobin, CV 80.5 % Comment: Interpretive Data No reference range established. Current interpretive data was last revised 2020. Blood 02/21/2025 1:09 PM CDT 02/21/2025 1:30 PM CDT Hood Pacheco MD LAB BLOOD ORDERABLES Final Resul t Performing Organization Address City/[facility] Co de Phone Number [facility] Department [place] [address] * (ABNORMAL) Lactate (02/21/2025 1:09 PM CDT) Lactate 2.3(H) 0.7 - 2.0 mmol/L Blood 02/21/2025 1:09 PM CDT 02/21/2025 1:37 PM CDT Hood Pacheco MD LAB BLOOD ORDERABLES Final Resul t Performing Organization Address [facility] Co de Phone Number [facility] [place] [address] * (ABNORMAL) Blood gas, venous (02/21/2025 1:09 PM CDT) pH, Venous 7.26(L) 7.32 - 7.43 PCO2, Venous 65(H) 40 - 50 mmHg [facility] PO2, Venous 55 mmHg [facility] Comment: Interpretive Data No Reference Range Established Current Interpretive Data was last revised on 2018. HCO3 Venous, Calculated 30 20 - 30 mmol/L [facility] BE, venous 1 mmol/L [facility] Comment: Interpretive Data No Reference Range Established Current Interpretive Data was last revised on 2018. Blood 02/21/2025 1:09 PM CDT 02/21/2025 1:30 PM CDT Hood Pacheco MD LAB BLOOD ORDERABLES Final Resul t Performing Organization Address [facility] Co de Phone Number [facility] [place] [address] * CT Chest PE (CTA) Abdomen Pelvis [...] DEVICE Fin al Result Performing Organization Address City/State/[facility] Co de Phone Number [facility] Department [place] [address] * TRANSTHORACIC ECHO (TTE) COMPLETE W DOPPLER/CF W CONTRAST (02/21/2025 10:20 AM CDT) Anatomical Region Laterality Modality Ultrasound 02/21/2025 9:10 AM CDT Narrative 02/21/2025 1:03 PM CDT [facility] [place] [address] Transthoracic Echocardiographic Report Patient Name: JUD MACE L : 1955 (70y ) Gender: M Study Date: 02/21/2025 09:10:55 AM Ht(Inch): 73 Wt(Lb): 261.02 BSA: 2.47 [employer] Sash [employer] Frame Carpenter: Martha Escobar RDCS, [facility] Location: [id number] Order Provider: DIVINE VENTURA BMI: 34.43 BP: [...] Ao Index 1.38 cm/m2 Electronically Signed By: Rayma Morris MD 02/21/2025 1:02:41 PM CDT Wall Motion Analysis - Resting Procedure Note De Ramya Lake MD - 02/21/2025 [facility] [place] [address] Transthoracic Echocardiographic Report Patient Name: JUD MACE L : 1955 (70y ) Gender: M Study Date: 02/21/2025 09:10:55 AM Ht(Inch): 73 Wt(Lb): 261.02 BSA: 2.47 [employer] Carpenter: Martha Escobar RDCS, [facility] Location: [place] [address] Order Provider:DIVINE VENTURA BMI: 34.43 BP: 123 [...] Vel3.8 m/s LV Thickness Ratio 1.0 AI TSI163.44 msec RWT 0.35 MV E Peak Vel0.9 m/s [ 0.6 - 1.3 ] EDV Mod BP 231.00 ml [ 62.00 - 150.00 ] MV A Peak Vel0.7 m/s [ 1.0 - 1.2 ] LV EDV Index 93.52 ml/m2 MV E/A1.2 ratio [ 0.8 - 1.5 ] ESV Mod BP 115.00 ml [ 21.00 - 61.00 ] MV Decel Lzon868.58 msec [ 104.00 - 258.00 ] EF [...] cm [ 1.71 - 5.00 ] RA Tojyce12.39 ml RA Volume Index28.50 ml/m2 AoR Diam [...] * POCT glucose (02/21/2025 7:28 AM CDT) [facility] Signature Glucose, POC 85 70 - 199 mg/dL Blood 02/21/2025 7:28 AM CDT 02/21/2025 7:28 AM CDT us Hood Pacheco MD LAB POCT ORDERABLES - DEVICE Fin al Result [facility] [place] [address] * (ABNORMAL) Lactate (02/21/2025 5:06 AM CDT) Lactate 3.4(H) 0.7 - 2.0 mmol/L Blood 02/21/2025 5:06 AM CDT 02/21/2025 5:23 AM CDT us Gisela Camejo MD LAB BLOOD ORDERABLES Final Result Performing Organization Address City/[facility]/ZIP Co de Phone Number [facility] Department [place] [address] * (ABNORMAL) eGFR (02/21/2025 5:06 AM CDT) [...] ORDERABLES Final Resul t Performing Organization Address City/[facility]/ZIP Co de Phone Number [facility] Department [place] [address] * (ABNORMAL) POC Blood Gas and Chemistries, Arterial - (02/21/2025 5:06 AM CDT) pH, Art POC 7.34(L) 7.35 - 7.45 pCO2, Art POC 49(H) 35 - 45 mmHg [facility] pO2, Art POC 78(L) 83 - 108 mmHg [facility] Na, POC 129(L) 135 - 145 mmol/L [facility] K POC 3.8 3.3 - 4.9 mmol/L [facility] Comment: Interpretive Data Not all point of care methods assess for hemolysis. Confirm with instrument and retest K+ if not consistent with clinical signs and symptoms. Current Interpretive Data was last revised on 2024. Cl, POC 97 97 - 110 mmol/L [facility] Ionized Ca, POC 4.90 4.50 - 5.10 mg/dL [facility] Glucose, POC 116 70 - 199 mg/dL [facility] Lactate, POC 3.0(H) 0.7 - 2.0 mmol/L [facility] O2Hb, Art POC 94.4 90.0 - 95.0 % [facility] COHb, Art POC 2.2 0.0 - 2.9 % [facility] MetHgb, Art POC 0.7 0.0 - 1.9 % [facility] SO2 (annalisa) arterial 97(H) 90 - 95 % [facility] Base excess, POC 0.1 mmol/L [facility] HCO3, Art POC 26 20 - 30 mmol/L [facility] Hct, POC 35.0(L) 41.4 - 51.6 % [facility] Total Hb, POC 11.5(L) 13.8 - 17.2 g/dL [facility] Blood 02/21/2025 5:06 AM CDT 02/21/2025 5:06 AM CDT us Hood Pacheco MD LAB POCT ORDERABLES - DEVICE Fin al Result [facility] [place] [address] * Urea nitrogen, urine, random (02/21/2025 5:06 AM CDT) Urea nitrogen, ur 656 mg/dL Comment: Interpretive Data No reference range established. Current interpretive data was last revised 2019. Urine 02/21/2025 5:06 AM CDT 02/21/2025 5:23 AM CDT Ivet Barakat MD LAB URINE ORDERABLES Final Result Performing Organization Address City/[facility] Co de Phone Number [facility] [place] [employer] [place] [address] * Sodium, urine, random (02/21/2025 5:06 AM CDT) Sodium, ur <20 mmol/L Comment: Interpretive Data No reference range established. Current interpretive data was last revised 2019. Urine (Urine, Clean Catch) 02/21/2025 5:06 AM CDT 02/21/2025 5:23 AM CDT Ivet Barakat MD LAB URINE ORDERABLES Final Result Performing Organization Address [facility] de Phone Number [facility] [place] [place] [address] * Creatinine, urine, random (02/21/2025 5:06 AM CDT) Creatinine Ur 93.5 mg/dL Comment: Interpretive Data No reference range established. Current interpretive data was last revised 2019. Urine 02/21/2025 5:06 AM CDT 02/21/2025 5:23 AM CDT Ivet Barakat MD LAB URINE ORDERABLES Final Result Performing Organization Address City/[facility] Co de Phone Number [facility] Department [place] [address] * (ABNORMAL) CBC without differential (02/21/2025 5:06 AM CDT) Pathologist [facility] WBC 9.6 3.8 - 9.9 K/cumm Hgb 11.4(L) 13.0 - 17.5 g/dL [facility] Hct 34.4(L) 38.9 - 50.3 % [facility] Plt 96(L) 150 - 400 K/cumm [facility] MPV 12.6(H) 9.1 - 12.3 fL [facility] RBC 3.67(L) 4.30 - 5.80 M/cumm [facility] MCV 93.7 81.3 - 96.4 fL [facility] MCH 31.1 27.1 - 33.3 pg [facility] MCHC 33.1 32.3 - 35.7 g/dL [facility] RDW CV 15.3(H) 11.1 - 14.9 % [facility] RDW SD 52.7(H) 35.7 - 48.1 fL [facility] NRBC abs 0.02(H) 0.00 - 0.01 K/cumm [facility] Blood 02/21/2025 5:06 AM CDT 02/21/2025 5:23 AM CDT Hood Pacheco MD LAB BLOOD ORDERABLES Final Resul t Performing Organization Address [facility]/ZIP Co de Phone Number [facility] Department [place] [address] * (ABNORMAL) Phosphorus (02/21/2025 5:06 AM CDT) Pathologist [facility] Phosphorus, pl 4.7(H) 2.3 - 4.5 mg/dL Blood 02/21/2025 5:06 AM CDT 02/21/2025 5:26 AM CDT Hood Pacheco MD LAB BLOOD ORDERABLES Final Resul t Performing Organization Address City/[facility]/ZIP Co de Phone Number [facility] Department [place] [address] * Magnesium (02/21/2025 5:06 AM CDT) Pathologist [facility] Magnesium 2.3 1.4 - 2.5 mg/dL Blood 02/21/2025 5:06 AM CDT 02/21/2025 5:26 AM CDT Hood Pacheco MD LAB BLOOD ORDERABLES Final Resul t [facility] [place] [address] * Creatine kinase (CK), total (02/21/2025 5:06 AM CDT) [facility] CK 164 40 - 300 Units/L Blood 02/21/2025 5:06 AM CDT 02/21/2025 5:26 AM CDT Hood Pacheco MD LAB BLOOD ORDERABLES Final Resul t Performing Organization Address City/[facility] Co de Phone Number [facility] [place] [address] * (ABNORMAL) Comprehensive metabolic panel (02/21/2025 5:06 AM CDT) [facility] Sodium 129(L) 135 - 145 mmol/L Potassium, pl 4.0 3.3 - 4.9 mmol/L [facility] Chloride 92(L) 97 - 110 mmol/L [facility] CO2 25 22 - 32 mmol/L [facility] Anion gap 12 2 - 15 mmol/L [facility] BUN 56(H) 6 - 25 mg/dL [facility] Creatinine 1.71(H) 0.80 - 1.30 mg/dL [facility] Glucose 111 70 - 199 mg/dL [facility] Comment: Interpretive Data Fasting glucose >/= [...] 2022. Calcium 8.8 8.5 - 10.3 mg/dL [facility] Bilirubin, total 0.9 0.1 - 1.2 mg/dL [facility] Protein, pl 6.3(L) 6.5 - 8.5 g/dL [facility] Albumin 2.5(L) 3.5 - 5.0 g/dL [facility] Alk phos 51 40 - 130 Units/L [facility] ALT 45 7 - 55 Units/L [facility] AST 59(H) 10 - 50 Units/L [facility] Blood 02/21/2025 5:06 AM CDT 02/21/2025 5:26 AM CDT us Hood Pacheco MD LAB BLOOD ORDERABLES Final Resul t [facility] Department [place] [address] * XR Chest 1 View (02/21/2025 4:26 [...] Chemistries, Venous - (02/21/2025 3:04 AM CDT) [facility] pH, Daniel POC 7.31(L) 7.32 - 7.43 pCO2, daniel POC 52(H) 40 - 50 mmHg [facility] pO2, daniel POC 48 mmHg [facility] Na, POC 128(L) 135 - 145 mmol/L [facility] K POC 4.1 3.3 - 4.9 mmol/L [facility] Comment: Interpretive Data Not all point of care methods assess for hemolysis. Confirm with instrument and retest K+ if not consistent with clinical signs and symptoms. Current Interpretive Data was last revised on 2024. Cl, POC 94(L) 97 - 110 mmol/L [facility] Ionized Ca, POC 3.98(L) 4.50 - 5.10 mg/dL [facility] Glucose, POC 150 70 - 199 mg/dL [facility] Lactate, POC 3.4(H) 0.7 - 2.0 mmol/L [facility] O2Hb, Daniel POC 77.0(L) 90.0 - 95.0 % [facility] COHb, Daniel POC 2.0 0.0 - 2.9 % [facility] MetHb, Daniel POC 0.4 0.0 - 1.9 % [facility] O2 Sat, Daniel POC (Annalisa) 79 % [facility] Base excess, POC -0.7 mmol/L [facility] HCO3, Daniel POC 26 20 - 30 mmol/L [facility] Hct, POC 35.0(L) 41.4 - 51.6 % [facility] Total Hb, POC 11.6(L) 13.8 - 17.2 g/dL [facility] Blood 02/21/2025 3:04 AM CDT 02/21/2025 3:04 AM CDT us Hood Pacheco MD LAB POCT ORDERABLES - DEVICE Fin al Result [facility] Department [place] [address] * CT INSJ NON-TUNNELED CENTRAL VENOUS CATH AGE 5 YR/> (02/21/2025 1:30 AM CDT) Narrative Sanjiv Bishop MD - 02/21/2025 1:30 AM CDT Sanjiv Bishop MD 02/21/2025 9:03 AM Central Line Insertion Date/Time: 02/21/2025 1:30 AM Performed by: Reema Garcia MD Authorized by: Sanjiv Bishop MD Ruth Protocol: RN Notified of Procedure: yes Patient's [...] Art POC 46(H) 35 - 45 mmHg [facility] pO2, Art POC 40(C) 83 - 108 mmHg [facility] Na, POC 127(L) 135 - 145 mmol/L [facility] K POC 4.8 3.3 - 4.9 mmol/L [facility] Comment: Interpretive Data Not all point of care methods assess for hemolysis. Confirm with instrument and retest K+ if not consistent with clinical signs and symptoms. Current Interpretive Data was last revised on 2024. Cl, POC 95(L) 97 - 110 mmol/L [facility] Ionized Ca, POC 4.06(L) 4.50 - 5.10 mg/dL [facility] Glucose, POC 91 70 - 199 mg/dL [facility] Lactate, POC 5.1(C) 0.7 - 2.0 mmol/L [facility] O2Hb, Art POC 69.5(C) 90.0 - 95.0 % [facility] COHb, Art POC 2.0 0.0 - 2.9 % [facility] MetHgb, Art POC 0.2 0.0 - 1.9 % [facility] SO2 (annalisa) arterial 71(L) 90 - 95 % [facility] Base excess, POC -2.6 mmol/L [facility] HCO3, Art POC 24 20 - 30 mmol/L [facility] Hct, POC 39.0(L) 41.4 - 51.6 % [facility] Total Hb, POC 12.9(L) 13.8 - 17.2 g/dL [facility] Blood 02/21/2025 1:08 AM CDT 02/21/2025 1:08 AM CDT us Hood Pacheco MD LAB POCT ORDERABLES - DEVICE Fin al Result [facility] [place] [address] * CT ARTL CATHJ/CANNULJ MNTR/TRANSFUSION SPX PRQ (02/21/2025 1:00 AM CDT) Narrative Sanjiv Bishop MD - 02/21/2025 1:00 AM CDT Sanjiv Bishop MD 02/21/2025 9:03 AM Arterial Line Insertion Date/Time: 02/21/2025 1:00 AM Performed by: Reema Garcia MD Authorized by: Sanjiv Bishop MD Ruth Protocol: RN Notified of Procedure: yes Patient's [...] * Check Sample (02/21/2025 12:57 AM CDT) Pathologist [facility] ABO Rh A Positive [facility] HCLL OTHER 02/21/2025 12:5 7 AM CDT 02/21/2025 12:57 AM CDT Hood Pacheco MD LAB BLOOD ORDERABLES Final Resul t Performing Organization Address City/[facility] Co de Phone Number [facility] Department [place] [address] [facility] * (ABNORMAL) Lactate (02/21/2025 12:12 AM CDT) Pathologist [facility] Lactate 3.8(H) 0.7 - 2.0 mmol/L Blood 02/21/2025 12:1 2 AM CDT 02/21/2025 12:31 AM CDT Hood Pacheco MD LAB BLOOD ORDERABLES Final Resul t Performing Organization Address City/[facility] Co de Phone Number [facility] Department [place] [address] * ECG 12 lead (02/21/2025 12:08 AM CDT) Pathologist [facility] Ventricular Rate EKG/Min 108 BPM [facility] Atrial Rate 108 BPM [facility] CT-Interval (MSEC) 162 ms [facility] QRS-Interval (MSEC) 150 ms [facility] QT-Interval (MSEC) 366 ms [facility] QTc 490 ms [facility] P [place] 67 degrees [facility] R [place] -75 degrees [facility] T [place] 89 degrees [facility] Diagnosis Sinus tachycardia with frequent Premature ventricular complexes Left bundle branch block Abnormal ECG When compared with ECG of 06-APR-2007 06:22, Premature ventricular complexes are now Present Left bundle branch block is now Present Confirmed by FACUNDO ALLEN M.D ([id number]) on 02/21/2025 7:25:34 PM [facility] 02/21/2025 12:0 8 AM CDT 02/21/2025 7:25 PM CDT Hood Pacheco MD ECG ORDERABLES Final Result [facility] * Type and screen (02/21/2025 12:06 AM CDT) ABO Rh A Positive Kp, indirect Negative [facility] Blood 02/21/2025 12:0 6 AM CDT 02/21/2025 12:43 AM CDT Hood Pacheco MD LAB BLOOD BANK TEST ORDERABLES F inal Result [facility] [place] [address] * Infection Prevention MRSA Only (Staphylococcus aureus) Culture Nasal (02/21/2025 12:06 AM CDT) Report Final Report: Negative Nasal 02/21/2025 12:0 6 AM CDT 02/21/2025 12:24 AM CDT Narrative [facility] - 02/22/2025 3:20 AM CDT Testing performed by [facility] Microbiology Laboratory ([phone]). Hood Pacheco MD LAB MICROBIOLOGY - GENERAL ORDER MICHELLE Final Result [facility] Department [place] [address] * CT CRITICAL CARE ILL/INJURED PATIENT INIT 30-74 MIN [...] * (ABNORMAL) eGFR (02/20/2025 9:27 PM CDT) [facility] Signature eGFR 39(L) >=60 mL/min/1. 73 m2 Comment: [...] Barakat MD LAB BLOOD ORDERABLES Final Result [facility] [place] [address] * (ABNORMAL) Pro B-type natriuretic peptide (02/20/2025 [...] Barakat MD LAB BLOOD ORDERABLES Final Result [facility] [place] [address] * (ABNORMAL) CBC with auto differential (02/20/2025 9:27 PM CDT) Pathologist [facility] WBC 6.7 3.8 - 9.9 K/cumm Hgb 11.7(L) 13.0 - 17.5 g/dL [facility] Hct 34.5(L) 38.9 - 50.3 % [facility] Plt 78(L) 150 - 400 K/cumm [facility] MPV 12.0 9.1 - 12.3 fL [facility] RBC 3.66(L) 4.30 - 5.80 M/cumm [facility] MCV 94.3 81.3 - 96.4 fL [facility] MCH 32.0 27.1 - 33.3 pg [facility] MCHC 33.9 32.3 - 35.7 g/dL [facility] RDW CV 15.3(H) 11.1 - 14.9 % [facility] RDW SD 52.7(H) 35.7 - 48.1 fL [facility] NRBC abs 0.00 0.00 - 0.01 K/cumm [facility] Blood 02/20/2025 9:27 PM CDT 02/20/2025 9:39 PM CDT Ivet Barakat MD LAB BLOOD ORDERABLES Final Result [facility] Department [place] [address] * (ABNORMAL) Manual Differential (02/20/2025 9:27 PM CDT) Differential Manual Cells Counted 141 [facility] Neutrophil abs 5.0 1.5 - 6.5 K/cumm [facility] Imm gran abs 0.8(H) 0.0 - 0.1 K/cumm [facility] Lymphocyte abs 0.4(L) 0.8 - 3.3 K/cumm [facility] Monocyte abs 0.4 0.2 - 0.8 K/cumm [facility] Neutrophil pct 75.2 % [facility] Comment: Interpretive Data Percent cell count reference ranges are not reported, since discordance with absolute values may lead to misinterpretation of CBC data. Current Interpretive Data was last revised on 2018. Lymphocyte pct 4.3 % [facility] Comment: Interpretive Data Percent cell count reference ranges are not reported, since discordance with absolute values may lead to misinterpretation of CBC data. Current Interpretive Data was last revised on 2018. Monocyte pct 6.4 % [facility] Comment: Interpretive Data Percent cell count reference ranges are not reported, since discordance with absolute values may lead to misinterpretation of CBC data. Current Interpretive Data was last revised on 2018. Metamyelocyte pct 7.8(H) 0.0 - 0.0 % [facility] Myelocyte pct 3.5(H) 0.0 - 0.0 % [facility] Promyelocyte pct 1.4(H) 0.0 - 0.0 % [facility] Variant lymph pct 1.4(H) 0.0 - 0.0 % [facility] Blood 02/20/2025 9:27 PM CDT 02/20/2025 9:44 PM CDT Ivet Barakat MD LAB BLOOD ORDERABLES Final Result [facility] Department [place] [address] * (ABNORMAL) Basic metabolic panel (02/20/2025 9:27 PM CDT) [facility] Sodium 129(L) 135 - 145 mmol/L Potassium, pl 4.5 3.3 - 4.9 mmol/L [facility] Chloride 92(L) 97 - 110 mmol/L [facility] CO2 24 22 - 32 mmol/L [facility] Anion gap 13 2 - 15 mmol/L [facility] BUN 48(H) 6 - 25 mg/dL [facility] Creatinine 1.84(H) 0.80 - 1.30 mg/dL [facility] Glucose 81 70 - 199 mg/dL [facility] Comment: Interpretive Data Fasting glucose >/= [...] 2022. Calcium 7.7(L) 8.5 - 10.3 mg/dL [facility] Blood 02/20/2025 9:27 PM CDT 02/20/2025 9:38 PM CDT Ivet Barakat MD LAB BLOOD ORDERABLES Final Result Performing Organization Address [facility]/ZIP Co de Phone Number [facility] Department [place] [address] * (ABNORMAL) Lactate (02/20/2025 8:50 PM CDT) Lactate 4.9(C) 0.7 - 2.0 mmol/L Blood 02/20/2025 8:50 PM CDT 02/20/2025 9:00 PM CDT Divine Ventura CLINIC ADMINISTRATOR LAB BLOOD ORDERABLES Final Res ult Performing Organization Address [facility] Co de Phone Number [facility] Department [place] [address] * Critical Result Callback Chemistry (02/20/2025 8:50 PM CDT) Date Notified 20250220 Time Notified 2134 HAM NICOLAS TestName Lactate HAM NICOLAS Called/Read Back Buck LARIOS Credentials MD HAM LARIOS Called By CHRIST NICOLAS Blood 02/20/2025 8:50 PM CDT 02/20/2025 9:00 PM CDT Divine Ventura CLINIC ADMINISTRATOR LAB BLOOD ORDERABLES Final Res ult Performing Organization Address [facility] de Phone Number [facility] Department [place] [address] * POCUS Thoracic (Lung Ultrasound) (02/20/2025 8:23 [...] with the findings. Electronically signed by IVET BARAKTA on Tuesday, February 25, 2025 at 3:49 [...] (ABNORMAL) POCT lactate (02/20/2025 7:45 PM CDT) [facility] Lactate POC i-STAT 3.8(H) 0.7 - 2.0 mmol/L Blood 02/20/2025 7:45 PM CDT 02/20/2025 7:45 PM CDT Ivet Barakat MD LAB POCT ORDERABLES - DEVIC E Final Result Performing Organization Address City/State/[facility] Co de Phone Number [facility] Department [place] [address] * (ABNORMAL) ECG 12-LEAD (02/20/2025 7:35 PM CDT) Narrative [facility] - 02/20/2025 7:35 PM CDT Gisela Camejo [...] Camejo MD ECG ORDERABLES Asya l Result Performing Organization Address City/[facility] Co de Phone Number [facility] * POCT glucose (02/20/2025 7:13 PM CDT) [facility] Signature Glucose, POC 82 70 - 199 mg/dL Blood 02/20/2025 7:13 PM CDT 02/20/2025 7:13 PM CDT us Hood Pacheco MD LAB POCT ORDERABLES - DEVICE Fin al Result [facility] [place] [address] * POCT glucose (02/20/2025 3:45 PM CDT) Glucose, POC 90 70 - 199 mg/dL Blood 02/20/2025 3:45 PM CDT 02/20/2025 3:45 PM CDT Hood Pacheco MD LAB POCT ORDERABLES - DEVICE Fin al Result Performing Organization Address City/[facility]/ZIP Co de Phone Number [facility] Department [place] [address] * (ABNORMAL) Lactate (02/20/2025 3:42 PM CDT) Pathologist [facility] Lactate 5.0(C) 0.7 - 2.0 mmol/L Blood 02/20/2025 3:42 PM CDT 02/20/2025 3:50 PM CDT Divine Ventura NP LAB BLOOD ORDERABLES Final Res ult Performing Organization Address [facility] Co de Phone Number [facility] Department [place] [address] * (ABNORMAL) eGFR (02/20/2025 3:42 PM CDT) [...] CDT 02/20/2025 3:50 PM CDT Divine Ventura CLINIC ADMINISTRATOR LAB BLOOD ORDERABLES Final Res ult Performing Organization Address [facility] Co de Phone Number [facility] [place] [employer] [address] * Critical Result Callback Chemistry (02/20/2025 3:42 PM CDT) Pathologist [facility] Date Notified 20250220 Time Notified 1627 [facility] TestName Lactate HAM NICOLAS Called/Read Back Esha CHEEK [facility] Credentials RN [facility] Called By PD [facility] Blood 02/20/2025 3:42 PM CDT 02/20/2025 3:50 PM CDT Divine Ventura CLINIC ADMINISTRATOR LAB BLOOD ORDERABLES Final Res ult Performing Organization Address [facility] [place] [address] * (ABNORMAL) Basic metabolic panel (02/20/2025 3:42 PM CDT) Pathologist [facility] Sodium 128(L) 135 - 145 mmol/L Potassium, pl 4.2 3.3 - 4.9 mmol/L [facility] Chloride 90(L) 97 - 110 mmol/L [facility] CO2 24 22 - 32 mmol/L [facility] Anion gap 14 2 - 15 mmol/L [facility] BUN 42(H) 6 - 25 mg/dL [facility] Creatinine 1.71(H) 0.80 - 1.30 mg/dL [facility] Glucose 88 70 - 199 mg/dL [facility] Comment: Interpretive Data Fasting glucose >/= [...] 2022. Calcium 7.8(L) 8.5 - 10.3 mg/dL [facility] Blood 02/20/2025 3:42 PM CDT 02/20/2025 3:50 PM CDT Divine Ventura NP LAB BLOOD ORDERABLES Final Res ult Performing Organization Address [facility] de Phone Number [facility] Department [place] [address] * POCT glucose (02/20/2025 1:52 PM CDT) Glucose, POC 81 70 - 199 mg/dL Blood 02/20/2025 1:52 PM CDT 02/20/2025 1:52 PM CDT Hood Pacheco MD LAB POCT ORDERABLES - DEVICE Fin al Result Performing Organization Address [facility] de Phone Number [facility] Department [place] [address] * POCT glucose (02/20/2025 11:59 AM CDT) Glucose, POC 112 70 - 199 mg/dL Blood 02/20/2025 11:5 9 AM CDT 02/20/2025 11:59 AM CDT Hood Pacheco MD LAB POCT ORDERABLES - DEVICE Fin al Result Performing Organization Address [facility] de Phone Number [facility] Department [place] [address] * (ABNORMAL) POCT glucose (02/20/2025 11:09 AM CDT) Glucose, POC 52(C) 70 - 199 mg/dL Comment:Glu2: RN/MD Notified Glucose comment 1 Glu2: RN/MD Notified [facility] Blood 02/20/2025 11:0 9 AM CDT 02/20/2025 11:09 AM CDT Hood Pacheco MD LAB POCT ORDERABLES - DEVICE Fin al Result [facility] Department [place] [address] * XR Abdomen Ap 1 Vw (02/20/2025 [...] by: Anton Petersen M.D., MPH Divine Ventura CLINIC ADMINISTRATOR IMG XR PROCEDURES Final Result * (ABNORMAL) POCT glucose (02/20/2025 10:28 AM CDT) Glucose, POC 46(C) 70 - 199 mg/dL Comment:Glu2: RN/ Notified Glucose comment 1 Glu2: RN/ Notified [facility] Blood 02/20/2025 10:2 8 AM CDT 02/20/2025 10:28 AM CDT Hood Pacheco MD LAB POCT ORDERABLES - DEVICE Fin al Result Performing Organization Address [facility] de Phone Number [facility] Department [place] [address] * (ABNORMAL) POCT glucose (02/20/2025 9:13 AM CDT) Glucose, POC 49(C) 70 - 199 mg/dL Comment:Glu2: RN/ Notified Glucose comment 1 Glu2: RN/ Notified [facility] Blood 02/20/2025 9:13 AM CDT 02/20/2025 9:13 AM CDT Hood Pacheco MD LAB POCT ORDERABLES - DEVICE Fin al Result Performing Organization Address [facility] de Phone Number [facility] Department [place] [address] * (ABNORMAL) POCT glucose (02/20/2025 9:10 AM CDT) Glucose, POC 51(C) 70 - 199 mg/dL Comment: Glu2: Critical Value Noted RN/ Notified Glucose comment 2 RN/ Notified [facility] Blood 02/20/2025 9:10 AM CDT 02/20/2025 9:10 AM CDT Hood Pacheco MD LAB POCT ORDERABLES - DEVICE Fin al Result Performing Organization Address [facility] Co de Phone Number [facility] Department [place] [address] * (ABNORMAL) Sepsis Lactate w/ Reflex (02/20/2025 8:49 AM CDT) Pathologist [facility] Sepsis Lactate 4.7(C) 0.7 - 2.0 mmol/L Blood 02/20/2025 8:49 AM CDT 02/20/2025 9:17 AM CDT Sidney Malik MD LAB BLOOD ORDERABLES Fin al Result Performing Organization Address [facility]/ZIP Co de Phone Number [facility] Department [place] [address] * (ABNORMAL) Lactate (02/20/2025 8:49 AM CDT) [facility] Lactate 4.7(C) 0.7 - 2.0 mmol/L Blood 02/20/2025 8:49 AM CDT 02/20/2025 9:26 AM CDT Divine Ventura NP LAB BLOOD ORDERABLES Final Res ult Performing Organization Address City/[facility]/ZIP Co de Phone Number [facility] Department [place] [address] * (ABNORMAL) eGFR (02/20/2025 8:49 AM CDT) Pathologist [facility] eGFR 39(L) >=60 mL/min/1. 73 m2 Comment: [...] CDT 02/20/2025 9:26 AM CDT Divine Ventura CLINIC ADMINISTRATOR LAB BLOOD ORDERABLES Final Res ult Performing Organization Address City/[facility]/ZIP Co de Phone Number HAM MARIA ISABEL [facility] [place] [address] * Critical Result Callback Chemistry (02/20/2025 8:49 AM CDT) Date Notified 20250220 Time Notified 1016 HAM NICOLAS TestName Glucose HAM NICOLAS Called/Read Back Prakash NICOLAS Credentials ARIELLE NICOLAS Called By PARISH NICOLAS Blood 02/20/2025 8:49 AM CDT 02/20/2025 9:26 AM CDT Divine Ventura CLINIC ADMINISTRATOR LAB BLOOD ORDERABLES Final Res ult [facility] Department [place] [address] * Critical Result Callback Chemistry (02/20/2025 8:49 AM CDT) Date Notified 20250220 Time Notified 0957 HAM NICOLAS TestName Lactate HAM NICOLAS Called/Read Back Samm NICOLAS Credentials RN HAM LARIOS Called By catrachito NICOLAS Blood 02/20/2025 8:49 AM CDT 02/20/2025 9:26 AM CDT us Divine Ventura CLINIC ADMINISTRATOR LAB BLOOD ORDERABLES Final Res ult Performing Organization Address [facility] Co de Phone Number [facility] [place] [address] * Critical Result Callback Chemistry (02/20/2025 8:49 AM CDT) Date Notified 20250220 Time Notified 922 [facility] TestName Sepsis Lactate HAM NICOLAS Called/Read Back Samm [facility] Credentials RN [facility] Called By tmp [facility] Blood 02/20/2025 8:49 AM CDT 02/20/2025 9:17 AM CDT Sidney Malik MD LAB BLOOD ORDERABLES Fin al Result Performing Organization Address [facility] Co de Phone Number [facility] [place] [address] * Urea nitrogen, urine, random (02/20/2025 8:49 AM CDT) Urea nitrogen, ur 294 mg/dL Comment: Interpretive Data No reference range established. Current interpretive data was last revised 2019. Urine 02/20/2025 8:49 AM CDT 02/20/2025 9:27 AM CDT Hood Pacheco MD LAB URINE ORDERABLES Final Resul t Performing Organization Address [facility] Co de Phone Number [facility] [place] [address] * (ABNORMAL) Protein / creatinine ratio, urine, random (02/20/2025 8:49 AM CDT) Protein, ur, quant 63.9 mg/dL Comment: Interpretive Data No reference range established. Current interpretive data was last revised 2019. Creatinine Ur 255.6 mg/dL [facility] Comment: Interpretive Data No reference range established. Current interpretive data was last revised 2019. Protein/creatinin e ratio 250.0(H) 0.0 - 180.0 mg/g CR [facility] Urine 02/20/2025 8:49 AM CDT 02/20/2025 9:27 AM CDT us Divine Ventura NP LAB URINE ORDERABLES Final Res ult Performing Organization Address [facility] de Phone Number [facility] [place] [address] * Hepatitis panel, acute Blood (02/20/2025 8:49 AM CDT) Hep A IgM Nonreactive Nonreactive Hep B core IgM Nonreactive Nonreactive [facility] Hep C Ab Nonreactive Nonreactive [facility] Comment:Antibodies to HCV no t detected. Does NOT exclude the possibility of recent exposure to HCV. Current interpretive data was last revised on 22 HepBsAg Nonreactive Nonreactive [facility] Blood 02/20/2025 8:49 AM CDT 02/20/2025 9:26 AM CDT us Divine Ventura NP LAB MICROBIOLOGY - GENERAL ORD ERABLES Final Result Performing Organization Address [facility] de Phone Number [facility] Department [place] [address] * Sodium, urine, random (02/20/2025 8:49 AM CDT) Sodium, ur <20 mmol/L Comment: Repeated and Verified Interpretive Data No reference range established. Current interpretive data was last revised 2019. Urine 02/20/2025 8:49 AM CDT 02/20/2025 9:27 AM CDT us Divine Ventura NP LAB URINE ORDERABLES Final Res ult Performing Organization Address [facility] Co de Phone Number [facility] [place] [address] * Osmolality, urine (02/20/2025 8:49 AM CDT) Osmo, ur 362 mOsm/kg Urine 02/20/2025 8:49 AM CDT 02/20/2025 9:27 AM CDT Divine Ventura CLINIC ADMINISTRATOR LAB URINE ORDERABLES Final Res ult Performing Organization Address [facility] [place] [address] * Creatinine, urine, random (02/20/2025 8:49 AM CDT) Creatinine Ur 255.6 mg/dL Comment: Interpretive Data No reference range established. Current interpretive data was last revised 2019. Urine 02/20/2025 8:49 AM CDT 02/20/2025 9:27 AM CDT us Divine Ventura CLINIC ADMINISTRATOR LAB URINE ORDERABLES Final Res ult Performing Organization Address [facility] Co de Phone Number [facility] [place] [address] * aPTT (02/20/2025 8:49 AM CDT) aPTT 37 28 - 38 sec Comment: Interpretive Data Heparin therapeutic range: 66.0 - 100.0 seconds. Range based on correlation with therapeutic heparin activity range of 0.3 - 0.7 Units/mL. Current interpretive data was last revised on 2023. Blood 02/20/2025 8:49 AM CDT 02/20/2025 9:20 AM CDT us Divine Ventura CLINIC ADMINISTRATOR LAB BLOOD ORDERABLES Final Res ult Performing Organization Address [facility] Co de Phone Number [facility] [place] [address] * (ABNORMAL) Protime-INR (02/20/2025 8:49 AM CDT) Pathologist [facility] PT 21.6(H) 9.7 - 13.0 sec INR 1.97(H) 0.90 - 1.20 [facility] Comment: Interpretive data Oral anticoagulant therapeutic ranges: Venous thromboembolism prophylaxis or treatment: 2.0-3.0 CARDIOLOGY Standard range: 2.0-3.0 High-intensity range: 2.5-3.5 Refer to indication-specific guidelines for appropriate target ranges for prosthetic heart valve replacement. Current interpretive data was last revised on 2019. Blood 02/20/2025 8:49 AM CDT 02/20/2025 9:20 AM CDT Divine Ventura CLINIC ADMINISTRATOR LAB BLOOD ORDERABLES Final Res ult Performing Organization Address [facility] de Phone Number [facility] Department [place] [address] * (ABNORMAL) CBC without differential (02/20/2025 8:49 AM CDT) [facility] WBC 2.8(L) 3.8 - 9.9 K/cumm Hgb 11.8(L) 13.0 - 17.5 g/dL [facility] Hct 35.2(L) 38.9 - 50.3 % [facility] Plt 76(L) 150 - 400 K/cumm [facility] MPV 12.3 9.1 - 12.3 fL [facility] RBC 3.75(L) 4.30 - 5.80 M/cumm [facility] MCV 93.9 81.3 - 96.4 fL [facility] MCH 31.5 27.1 - 33.3 pg [facility] MCHC 33.5 32.3 - 35.7 g/dL [facility] RDW CV 15.4(H) 11.1 - 14.9 % [facility] RDW SD 53.0(H) 35.7 - 48.1 fL [facility] NRBC abs 0.00 0.00 - 0.01 K/cumm [facility] Blood 02/20/2025 8:49 AM CDT 02/20/2025 9:26 AM CDT Divine Ventura CLINIC ADMINISTRATOR LAB BLOOD ORDERABLES Final Res ult Performing Organization Address City/[facility] Co de Phone Number [facility] [place] [address] * Osmolality, blood (02/20/2025 8:49 AM CDT) Osmo 282 275 - 300 mOsm/kg Blood 02/20/2025 8:49 AM CDT 02/20/2025 9:25 AM CDT Divine Ventura CLINIC ADMINISTRATOR LAB BLOOD ORDERABLES Final Res ult Performing Organization Address [facility] Co de Phone Number [facility] [place] [employer] [address] * Magnesium (02/20/2025 8:49 AM CDT) Pathologist [facility] Magnesium 1.6 1.4 - 2.5 mg/dL Blood 02/20/2025 8:49 AM CDT 02/20/2025 9:26 AM CDT Hood Pacheco MD LAB BLOOD ORDERABLES Final Resul t Performing Organization Address [facility] Co de Phone Number [facility] [place] [employer] [address] * (ABNORMAL) Bilirubin, direct (02/20/2025 8:49 AM CDT) Bilirubin, direct 0.6(H) 0.1 - 0.3 mg/dL Blood 02/20/2025 8:49 AM CDT 02/20/2025 9:26 AM CDT us Divine Ventura NP LAB BLOOD ORDERABLES Final Res ult [facility] Department [place] [address] * (ABNORMAL) Lipid panel (02/20/2025 8:49 AM [...] on 2018. Triglycerides 131 <=149 mg/dL [facility] N[facility]OL[facility] Comment: Interpretive Data Ages < or = [...] on 2018. HDL 21(L) >=40 mg/dL [facility] Comment: Interpretive Data Ages < or = [...] on 2018. LDL, calculated 43 <=129 mg/dL [facility] Comment: Interpretive Data Ages < or [...] 3. Carter Mcdonough et al. CRISTOBAL Cardiol. 2020 March 23;5(5):540-548. doi: [email or web address] Current Interpretive Data was last revised on 2024. Non-HDL Cholesterol 67 mg/dL [facility] Comment: Interpretive Data Ages < or [...] last revised on 2018. Chol/HDL ratio 4 [facility] Blood 02/20/2025 8:49 AM CDT 02/20/2025 9:26 AM CDT Narrative [facility] - 02/20/2025 4:02 PM CDT Reflex us Hood Pacheco MD LAB BLOOD ORDERABLES Final Resul t [facility] Department [place] [address] * (ABNORMAL) Comprehensive metabolic panel (02/20/2025 8:49 AM CDT) Sodium 131(L) 135 - 145 mmol/L Potassium, pl 3.9 3.3 - 4.9 mmol/L [facility] Chloride 93(L) 97 - 110 mmol/L [facility] CO2 25 22 - 32 mmol/L [facility] Anion gap 13 2 - 15 mmol/L [facility] BUN 37(H) 6 - 25 mg/dL [facility] Creatinine 1.82(H) 0.80 - 1.30 mg/dL [facility] Glucose 47(C) 70 - 199 mg/dL [facility] Comment: Glycolysis suspected; suggest sending a [...] 2022. Calcium 7.7(L) 8.5 - 10.3 mg/dL [facility] Bilirubin, total 1.2 0.1 - 1.2 mg/dL [facility] Protein, pl 6.9 6.5 - 8.5 g/dL [facility] Albumin 3.1(L) 3.5 - 5.0 g/dL [facility] Alk phos 52 40 - 130 Units/L [facility] ALT 44 7 - 55 Units/L [facility] AST 71(H) 10 - 50 Units/L [facility] Blood 02/20/2025 8:49 AM CDT 02/20/2025 9:26 AM CDT us Divine Ventura CLINIC ADMINISTRATOR LAB BLOOD ORDERABLES Final Res ult [facility] [place] [address] * (ABNORMAL) Urinalysis reflex to microscopic (02/20/2025 7:59 AM CDT) Color, ur Rina Yellow Clarity, ur Cloudy(A) Clear [facility] Specific gravity, ur 1.023 1.003 - 1.030 [facility] pH, urine 5.5 [facility] Comment: Interpretive Data U rine pH is affected by diet, medications, systemic acid-base disturbances, and renal tubular function. pH may affect urinary stone formation. For example, urine pH below 6.0 may help reduce the tendency for calcium phosphate stones and pH greater than 6.0 may reduce the tendency for uric acid stone formation. Source: [facility] Current Interpretive Data was last revised on 2017 Protein, ur ql 1+(A) Negative [facility] Glucose, ur ql Negative Negative [facility] Ketones, ur Negative Negative [facility] Bilirubin, ur Negative Negative [facility] Blood, ur Negative Negative [facility] Urobilinogen, ur <2.0 <2.0 mg/dL [facility] Nitrite, ur Negative Negative [facility] Leukocyte esterase, ur Negative Negative [facility] UA reflex comment Reflex to microscopic UA will be performed. [facility] Urine 02/20/2025 7:59 AM CDT 02/20/2025 8:09 AM CDT us Marc Vasquez MD PhD LAB URINE ORDERABLE S Final Result [facility] Department [place] [address] * Legionella antigen Urine (02/20/2025 7:59 AM CDT) Legionella Ag Negative Negative Comment: Interpretive Data This test detects only Legionella pneumophila serogroup 1 antigen. Testing performed by [facility] ([phone]). Current interpretive data was last revised on 2020. Urine 02/20/2025 7:59 AM CDT 02/20/2025 8:11 AM CDT us Facundo Butt CLINIC ADMINISTRATOR LAB MICROBIOLOGY - GENER AL ORDERABLES Final Result Performing Organization Address [facility] Co de Phone Number [facility] Department of [place] [address] * (ABNORMAL) Urinalysis, microscopic only (02/20/2025 7:59 AM CDT) Pathologist [facility] WBC, ur 0-5 0 - 5 /HPF RBC, ur 0-2 0 - 2 /HPF [facility] Epithelial cells, squamous, ur 1-5 0 - 5 /HPF [facility] Bacteria, ur Trace(A) [facility] Yeast, ur TRACE [facility] Mucous, ur Present(A) [facility] Hyaline casts, ur >50(A) 0 - 10 /LPF [facility] Urine 02/20/2025 7:59 AM CDT 02/20/2025 8:09 AM CDT us Marc Vasquez MD PhD LAB URINE ORDERABLE S Final Result Performing Organization Address [facility] de Phone Number [facility] Department [place] [address] * (ABNORMAL) Sepsis Lactate w/ Reflex (02/20/2025 5:25 AM CDT) [facility] Sepsis Lactate 3.6(H) 0.7 - 2.0 mmol/L Blood 02/20/2025 5:25 AM CDT 02/20/2025 5:29 AM CDT us Sidney Malik MD LAB BLOOD ORDERABLES Fin al Result Performing Organization Address City/[facility]/ZIP Co de Phone Number [facility] [place] [employer] [address] * POCT glucose (02/20/2025 2:17 AM CDT) Glucose, POC 103 70 - 199 mg/dL Blood 02/20/2025 2:17 AM CDT 02/20/2025 2:17 AM CDT us Marc Vasquez MD PhD LAB POCT ORDERABLES - DEVICE Final Result Performing Organization Address [facility] Co de Phone Number [facility] [place] [employer] [place] [address] * (ABNORMAL) Sepsis Lactate w/ Reflex (02/20/2025 1:53 AM CDT) Sepsis Lactate 6.4(C) 0.7 - 2.0 mmol/L Blood 02/20/2025 1:53 AM CDT 02/20/2025 2:03 AM CDT Sidney Malik MD LAB BLOOD ORDERABLES Fin al Result Performing Organization Address [facility] Co de Phone Number [facility] [place] [employer] [place] [address] * Critical Result Callback Chemistry (02/20/2025 1:53 AM CDT) Date Notified 20250220 Time Notified 212 HAM NICOLAS TestName Sepsis Lactate HAM LARIOS Called/Read Back Sidney NICOLAS Credentials MD [facility] NIC[facility] Called By TRAE LARIOS Blood 02/20/2025 1:53 AM CDT 02/20/2025 2:03 AM CDT Sidney Malik MD LAB BLOOD ORDERABLES Fin al Result Performing Organization Address [facility] Co de Phone Number H[facility] Department [place] [address] * (ABNORMAL) POCT glucose (02/20/2025 12:07 AM CDT) Glucose, POC 55(L) 70 - 199 mg/dL Blood 02/20/2025 12:0 7 AM CDT 02/20/2025 12:07 AM CDT us Marc Vasquez MD PhD LAB POCT ORDERABLES - DEVICE Final Result Performing Organization Address [facility] de Phone Number [facility] Department [place] [address] * (ABNORMAL) POCT glucose (02/19/2025 11:41 PM CDT) [facility] Glucose, POC 58(L) 70 - 199 mg/dL Blood 02/19/2025 11:4 1 PM CDT 02/19/2025 11:41 PM CDT us Marc Vasquez MD PhD LAB POCT ORDERABLES - DEVICE Final Result Performing Organization Address [facility] de Phone Number [facility] [place] [address] * (ABNORMAL) Troponin I high-sensitivity 6-hour (02/19/2025 9:58 PM CDT) Trop I hs 116(H) <=35 ng/L Comment: Interpretive Data For further hscTnI resources including the diagnostic algorithm and an aid in interpretation, copy and paste this link: https://bjhlab.testcatalog.org/show/hsTrop-1 Current Interpretive Data last revised 2020. Trop I hs delta See Comment ng/L [facility] Comment:Inappropriate collec tion time to report a delta. Trop I hs pct delta See Comment % [facility] Comment:Inappropriate collec tion time to report a delta. Trop I hs interp See Comment [facility] Comment:Inappropriate collec tion time to report a delta. Blood 02/19/2025 9:58 PM CDT 02/19/2025 10:19 PM CDT Result [facility] Idalia Calderón MD LAB BLOOD ORDERABLES Final Result Performing Organization Address [facility] Co de Phone Number HAM [facility] [place] [address] * (ABNORMAL) Troponin I high-sensitivity 4-hour (02/19/2025 9:58 PM CDT) Pathologist [facility] Trop I hs 99(H) <=35 ng/L Comment: Interpretive Data For further hscTnI resources including the diagnostic algorithm and an aid in interpretation, copy and paste this link: https://bjhlab.testcatalog.org/show/hsTrop-1 Current Interpretive Data last revised 2020. Trop I hs delta See Comment ng/L [facility] Comment:Inappropriate collec tion time to report a delta. Trop I hs pct delta See Comment % [facility] Comment:Inappropriate collec tion time to report a delta. Trop I hs interp See Comment [facility] Comment:Inappropriate collec tion time to report a delta. Blood 02/19/2025 9:58 PM CDT 02/19/2025 10:19 PM CDT Idalia Calderón MD LAB BLOOD ORDERABLES Final Result Performing Organization Address [facility] Co de Phone Number HAM [facility] [place] [place] [address] * (ABNORMAL) Troponin I high-sensitivity 2-hour (02/19/2025 9:58 PM CDT) Trop I hs 99(H) <=35 ng/L Comment: Interpretive Data For further hscTnI resources including the diagnostic algorithm and an aid in interpretation, copy and paste this link: https://bjhlab.testcatalog.org/show/hsTrop-1 Current Interpretive Data last revised 2020. Trop I hs pct delta -20(C) % [facility] Trop I hs interp Significa nt(C) [facility] Blood 02/19/2025 9:58 PM CDT 02/19/2025 10:19 PM CDT Idalia Calderón MD LAB BLOOD ORDERABLES Final Result Performing Organization Address City/[facility] Co de Phone Number [facility] [place] [address] * (ABNORMAL) Lactate (02/19/2025 9:58 PM CDT) Lactate 5.9(C) 0.7 - 2.0 mmol/L Blood 02/19/2025 9:58 PM CDT 02/19/2025 10:19 PM CDT Sidney Malik MD LAB BLOOD ORDERABLES Fin al Result Performing Organization Address [facility] de Phone Number [facility] Department [place] [address] * Critical result callback Cardio chemistry (02/19/2025 9:58 PM CDT) Date Notified 20250219 Time Notified 2303. [facility] Test name Trop I hs 2hr p [facility] Called/Read Back Sidney [facility] Credentials MD [facility] Called By TRAE [facility] Blood 02/19/2025 9:58 PM CDT 02/19/2025 10:19 PM CDT Idalia Calderón MD LAB BLOOD ORDERABLES Final Result Performing Organization Address City/[facility]/ZIP Co de Phone Number [facility] Department [place] [address] * Critical Result Callback Chemistry (02/19/2025 9:58 PM CDT) [facility] Date Notified 20250219 Time Notified 2244 [facility] TestName Lactate [facility] Called/Read Back Abraham Lutz [facility] Credentials RN [facility] Called By scott [facility] Blood 02/19/2025 9:58 PM CDT 02/19/2025 10:19 PM CDT us Sidney Malik MD LAB BLOOD ORDERABLES Fin al Result Performing Organization Address City/State/[facility] Co de Phone Number [facility] [place] [address] * Respiratory pathogen panel Nasopharyngeal (02/19/2025 9:58 PM CDT) [facility] Influenza A RNA Not Detected Not Detected Influenza B RNA Not Detected Not Detected [facility] RSV RNA Not Detected Not Detected [facility] COVID-19 RNA Not Detected Not Detected [facility] Coronavirus 229E RNA Not Detected Not Detected [facility] Coronavirus HKU1 RNA Not Detected Not Detected [facility] Coronavirus NL63 RNA Not Detected Not Detected [facility] Coronavirus OC43 RNA Not Detected Not Detected [facility] Adenovirus DNA Not Detected Not Detected [facility] Metapneumovirus RNA Not Detected Not Detected [facility] Rhinovirus/Enterov irus RNA Not Detected Not Detected [facility] Parainfluenza 1 RNA Not Detected Not Detected [facility] Parainfluenza 2 RNA Not Detected Not Detected [facility] Parainfluenza 3 RNA Not Detected Not Detected [facility] Parainfluenza 4 RNA Not Detected Not Detected [facility] B. pertussis DNA Not Detected Not Detected [facility] B. parapertussis DNA Not Detected Not Detected [facility] C. pneumoniae DNA Not Detected Not Detected [facility] M. pneumoniae DNA Not Detected Not Detected [facility] Nasopharyngeal 02/19/2025 9: 58 PM CDT 02/19/2025 10:25 PM CDT Yolanda [facility] - 02/19/2025 11:25 PM CDT Is the Patient experiencing symptoms consistent with COVID?->Unknown Surveillance testing for transplant patient?->No Interpretive Data The [employer] FilmArray Respiratory Panel (RP2.1) assay is a [...] assay has FDA clearance for testing of CLINIC ADMINISTRATOR swabs. The performance of additional specimen types has been assessed by the performing laboratory. The performance characteristics of this assay have been determined by [facility] Molecular Infectious Disease Laboratory. Current interpretive data was last revised on 22. Sidney Malik MD LAB MICROBIOLOGY - GENER AL ORDERABLES Final Result Performing Organization Address City/[facility]/ZIP Co de Phone Number [facility] Department [place] [address] * Blood culture Blood Peripheral (02/19/2025 9:58 PM CDT) Report Final Report: No growth Blood (Peripheral) 02/19/2025 9:58 PM CDT 02/19/2025 10:27 PM CDT Yolanda NICOLAS - 02/24/2025 7:01 AM CDT From a [...] performance characteristics have been verified by the [facility] Microbiology Laboratory. For questions about this culture, contact the Microbiology Laboratory at [phone]. Interpretive data was last revised on 24. Sidney Malik MD LAB MICROBIOLOGY - GENER AL ORDERABLES Final Result Performing Organization Address [facility]/ZIP Co de Phone Number [facility] Department [place] [address] * Blood culture Blood Peripheral (02/19/2025 9:58 PM CDT) Report Final Report: No growth Blood (Peripheral) 02/19/2025 9:58 PM CDT 02/19/2025 10:27 PM CDT [facility] - 02/24/2025 7:01 AM CDT Draw Blood [...] performance characteristics have been verified by the [facility] Microbiology Laboratory. For questions about this culture, contact the Microbiology Laboratory at [phone]. Interpretive data was last revised on 24. us Sidney Malik MD LAB MICROBIOLOGY - [facility] AL ORDERABLES Final Result [facility] Department [place] [address] * Blood gas, venous (02/19/2025 9:58 PM CDT) pH, Venous 7.33 7.32 - 7.43 PCO2, Venous 47 40 - 50 mmHg [facility] PO2, Venous 49 mmHg [facility] Comment: Interpretive Data No Reference Range Established Current Interpretive Data was last revised on 2018. HCO3 Venous, Calculated 25 20 - 30 mmol/L [facility] BE, venous -2 mmol/L [facility] Comment: Interpretive Data No Reference Range Established Current Interpretive Data was last revised on 2018. Blood 02/19/2025 9:58 PM CDT 02/19/2025 10:13 PM CDT us Sidney Malik MD LAB BLOOD ORDERABLES Fin al Result [facility] [place] [address] * XR Chest PA Lateral 2 Views [...] MD IMG XR PROCEDURES Final Result * CT CRITICAL CARE ILL/INJURED PATIENT INIT 30-74 MIN [...] ORDERABLE S Final Result Performing Organization Address City/[facility]/ZIP Co de Phone Number H[facility] Department [place] [address] * (ABNORMAL) eGFR (02/19/2025 8:12 PM CDT) [...] PhD LAB BLOOD ORDERABLE S Final Result [facility] [place] [address] * (ABNORMAL) Differential, auto (02/19/2025 8:12 PM CDT) Neutrophil abs 3.3 1.5 - 6.5 K/cumm Imm gran abs 0.4(H) 0.0 - 0.1 K/cumm [facility] Lymphocyte abs 0.7(L) 0.8 - 3.3 K/cumm [facility] Monocyte abs 0.7 0.2 - 0.8 K/cumm [facility] Eosinophil abs 0.0 0.0 - 0.5 K/cumm [facility] Basophil abs 0.0 0.0 - 0.1 K/cumm [facility] Neutrophil pct 64.4 % [facility] Comment: Confirmed by smear review Interpretive Data Percent cell count reference ranges are not reported, since discordance with absolute values may lead to misinterpretation of CBC data. Current Interpretive Data was last revised on 2018. Imm gran pct 7.4 % [facility] Comment: Interpretive Data Percent cell count reference ranges are not reported, since discordance with absolute values may lead to misinterpretation of CBC data. Current Interpretive Data was last revised on 2018. Lymphocyte pct 13.8 % [facility] Comment: Interpretive Data Percent cell count reference ranges are not reported, since discordance with absolute values may lead to misinterpretation of CBC data. Current Interpretive Data was last revised on 2018. Monocyte pct 13.6 % [facility] Comment: Interpretive Data Percent cell count reference ranges are not reported, since discordance with absolute values may lead to misinterpretation of CBC data. Current Interpretive Data was last revised on 2018. Eosinophil pct 0.0 % [facility] Comment: Interpretive Data Percent cell count reference ranges are not reported, since discordance with absolute values may lead to misinterpretation of CBC data. Current Interpretive Data was last revised on 2018. Basophil pct 0.8 % [facility] Comment: Interpretive Data Percent cell count reference ranges are not reported, since discordance with absolute values may lead to misinterpretation of CBC data. Current Interpretive Data was last revised on 2018. Blood 02/19/2025 8:12 PM CDT 02/19/2025 8:31 PM CDT us Marc Vasquez MD PhD LAB BLOOD ORDERABLE S Final Result [facility] Department [place] [address] * (ABNORMAL) Pro B-type natriuretic peptide (02/19/2025 [...] MD LAB BLOOD ORDERABLES Fin al Result [facility] [place] [address] * (ABNORMAL) CBC with auto differential (02/19/2025 8:12 PM CDT) Pathologist [facility] WBC 5.1 3.8 - 9.9 K/cumm Hgb 11.6(L) 13.0 - 17.5 g/dL [facility] Hct 34.8(L) 38.9 - 50.3 % [facility] Plt 92(L) 150 - 400 K/cumm [facility] MPV 12.4(H) 9.1 - 12.3 fL [facility] RBC 3.70(L) 4.30 - 5.80 M/cumm [facility] MCV 94.1 81.3 - 96.4 fL [facility] MCH 31.4 27.1 - 33.3 pg [facility] MCHC 33.3 32.3 - 35.7 g/dL [facility] RDW CV 15.5(H) 11.1 - 14.9 % [facility] RDW SD 53.1(H) 35.7 - 48.1 fL [facility] NRBC abs 0.00 0.00 - 0.01 K/cumm [facility] Blood Venous blood specimen / Unknown 02/19/2025 8:12 PM CDT 02/19/2025 8:31 PM CDT us Marc Vasquez MD PhD LAB BLOOD ORDERABLE S Final Result [facility] Department [place] [address] * Lipase (02/19/2025 8:12 PM CDT) Pathologist [facility] Lipase 10 10 - 99 Units/L Blood Venous blood specimen / Unknown 02/19/2025 8:12 PM CDT 02/19/2025 8:30 PM CDT us Marc Vasquez MD PhD LAB BLOOD ORDERABLE S Final Result Performing Organization Address [facility] de Phone Number [facility] [place] [address] * (ABNORMAL) Hemoglobin A1c (02/19/2025 8:12 PM CDT) [facility] Hgb A1C 6.4(H) 4.0 - 5.6 % Estimated Average Glucose 137 mg/dL [facility] Comment: The ADA recommends reporting an [...] ORDERABLES Final Resul t Performing Organization Address [facility] Co de Phone Number [facility] [place] [address] * (ABNORMAL) Comprehensive metabolic panel (02/19/2025 8:12 PM CDT) [facility] Sodium 132(L) 135 - 145 mmol/L Potassium, pl 4.0 3.3 - 4.9 mmol/L [facility] Comment:Hemolyzed; Potassium value may be falsely elevated by as much as 0.3-0.5 mmol/L. Suggest redraw and reanalysis. Chloride 91(L) 97 - 110 mmol/L [facility] CO2 23 22 - 32 mmol/L [facility] Anion gap 18(H) 2 - 15 mmol/L [facility] BUN 29(H) 6 - 25 mg/dL [facility] Creatinine 2.02(H) 0.80 - 1.30 mg/dL [facility] Glucose 66(L) 70 - 199 mg/dL [facility] Comment: Interpretive Data Fasting glucose >/= [...] 2022. Calcium 8.5 8.5 - 10.3 mg/dL [facility] Bilirubin, total 1.8(H) 0.1 - 1.2 mg/dL [facility] Protein, pl 7.3 6.5 - 8.5 g/dL [facility] Albumin 3.2(L) 3.5 - 5.0 g/dL [facility] Alk phos 70 40 - 130 Units/L [facility] ALT 31 7 - 55 Units/L [facility] AST 63(H) 10 - 50 Units/L [facility] Comment:Hemolyzed; result ma y be falsely elevated Blood 02/19/2025 8:12 PM CDT 02/19/2025 8:30 PM CDT us Marc Vasquez MD PhD LAB BLOOD ORDERABLE S Final Result [facility] [place] [address] * ECG 12-LEAD (02/19/2025 7:57 PM CDT) Narrative [facility] - 02/19/2025 7:57 PM CDT Marc Vasquez [...] ORDERABLES Fin al Result Performing Organization Address [facility] Co de Phone Number [facility] * POCT glucose (12/15/2024 12:46 PM STUDENT DEVELOPMENT ADVISOR) Glucose, POC 128 70 - 199 mg/dL Blood 12/15/2024 12:4 6 PM STUDENT DEVELOPMENT ADVISOR 12/15/2024 12:46 PM STUDENT DEVELOPMENT ADVISOR us Aaron Gutierrez MD LAB POCT ORDERABLES - DEV ICE Final Result Performing Organization Address [facility] Co de Phone Number [facility] [place] [address] * POCT glucose (12/15/2024 10:26 AM STUDENT DEVELOPMENT ADVISOR) Glucose, POC 136 70 - 199 mg/dL Blood 12/15/2024 10:2 6 AM STUDENT DEVELOPMENT ADVISOR 12/15/2024 10:26 AM STUDENT DEVELOPMENT ADVISOR us Aaron Gutierrez MD LAB POCT ORDERABLES - DEV ICE Final Result Performing Organization Address [facility] Co de Phone Number [facility] [place] [address] * CT Chest WO Contrast F/U Lung Screen Protocol (11/12/2022 4:29 PM STUDENT DEVELOPMENT ADVISOR) Anatomical Region Laterality Modality Chest N/A Computed Tomogra phy 11/13/2022 8:38 AM STUDENT DEVELOPMENT ADVISOR Narrative 11/13/2022 8:47 AM STUDENT DEVELOPMENT ADVISOR EXAM DESCRIPTION: CT CHEST WO CONTRAST F/U [...] Electronically signed by More Greenwood M.D. TW: Report ID: [id number] Reading Location: [place] [address] Procedure Note More Greenwood MD - 11/13/2022 [...] More Greenwood M.D. TW: CASSIE Report ID: [id number] Reading Location: [place] [address] Sami Campbell MD [facility] CT PROCEDURES Final Result * (ABNORMAL) Albumin Creatinine Ratio, Urine (07/01/2022 2:08 PM CDT) Albumin Ur 32.7 mg/L [facility] (JO) Comment: Interpretive Data No reference range established. Current interpretive data was last revised 2019. Testing performed by: [address] [place] [address] Creatinine Ur 57.0 mg/dL [facility] ([facility]) Comment: Interpretive Data No reference range established. Current interpretive data was last revised 2019. Testing performed by: [address] [place]., [address] Albumin Creatinine Ratio, Ur 57(H) 1 - 29 mg/g [facility] (JO) Comment:Testing performed by : [facility], [address] [place] [address]., [id number] Urine 07/01/2022 2:08 PM CDT 07/02/2022 9:48 AM CDT Xiao Swanson MD LAB URINE ORDERABLES Final Res ult [facility] (JO) [facility] [place] [address] * Diabetic Eye Exam (01/22/2022) us Historical Provider HEALTH MAINTENANCE Final Result from Last 3 Months or Most Recently Relevant to Health Maintenance Insurance [id number] MEDICARE ADVANTAGE [facility] MEDICARE ADVANTAGE [facility] MEDICARE ADVANTAGE Advance Directives For more information, please contact: [phone] * Full Code (Latest Code Status on File) Date Activated Date Inactivated Comments 02/20/2025 1:29 PM 03/02/2025 8:05 PM * Full Code Date Activated Date Inactivated Comments 09/08/2019 2:14 PM 09/08/2019 9:30 PM Care Teams Triple Air Valve Tester Relationship Specialty Start Date End Date Giuliano Isbell MD [address] [place] [address] PCP - General Family Medicine 07/13/23
--- OUTSIDE RECORDS SUMMARY | 2025-03-15 01:52 | XMS_ITS | CONTINUITY OF CARE DOCUMENT ---
Author Name millie, larryser Address Unknown Organization [facility] Address [address] [place] [address] Phone [phone] Care Team Providers Care Outside Energy Sales Representatives Name Role Phone Mily Hay MD Unavailable [phone] LUCIE VASQUEZ MD Unavailable [phone] LUCIE VASQUEZ MD Unavailable PROBLEMS Condition Status Date Provider Notes Cardiovascular screening completed - Mily Hay MD CAD - S/P CABG ASHLEY>LAD/SVG>PDA, SVG>ramus/OM1/OM2 active Mily Hay MD COPD active Mily Hay MD Diabetes mellitus active Mily Hay MD Gout active Mily Hay MD Chronic back pain active Mily Hay MD Paranoid schizophrenia active Mily reyes MD Tobacco abuse active Mily Hay MD Nausea active Mily Hay MD Cholelithiasis active Mily Hay MD Ischemic Cardiomyopathy - EF of 30% active Mily Hay MD Hyperlipidemia active Mily Hay MD ENCOUNTERS Date Type Provider Location Encounter Diag nosis - In-person encounter Office Visit Mily Hay MD [facility] - In-person encounter Office Visit Mily Hay MD [facility] Hyperlipidemia - In-person encounter Office Visit Mily Hay MD [facility] CAD - S/P CABG ASHLEY>LAD/SVG>PDA, SVG>ramus/OM1/UO1Flyuxloeri asisIschemic Cardiomyopathy - EF of 30% - In-person encounter Office Visit Mily Hay MD [facility] Paranoid schizophreniaNausea - In-person encounter Office Visit Mily Hay MD [facility] Cardiovascular screeningCAD - S/P CABG ASHLEY>LAD/SVG>PDA, SVG>ramus/OM1/TP0FAUBYfjryh es mellitusGoutChronic back painParanoid schizophreniaTobacco abuse VITAL [...] [lb_av] Barbie ma height E&M 72 [in_i] Barbie John Body Mass Index (Ratio) 35.94 kg/m2 [...] Parada blood pressure, resting Yes Kill een [place] blood pressure, diastolic 80 mm[Hg] Ki lleen [place]ham blood pressure, systolic 120 mm[Hg] Aubree anderson [place] oxygen saturation, oximetry 95 % [place] respiratory rate E&M 16 /min [place] pulse rate 95 /min Yoly [place] [...] Policy type / Coverage type Gabriela red democrat ID MEDICAID [place] Medicaid [id number] [facility] MEDICARE COMPLETE HMO Other [id number] ADVANCE DIRECTIVES Name Date DISCUSSED - [...] Echo 6 minute walk test DLCO - 64591 FRC - 25091 FVC - 69776 Complete Echo HISTORY OF PROCEDURES Procedure Date [...] ed FVC / MVV with bronchodilator - 99362 Mily Hay MD completed FRC - 85134 Mily Hay MD comple natalya SpO2 w/o 6min walk/titration Mily Hay MD completed DLCO - 37910 Mily Hay MD compl eted EKG Mily Hay MD complet ed
--- NOTE | 2025-03-15 01:57 | ED.GENADULT ---
HPI - General Adult General Chief complaint: Unspecified Stated complaint: INCREASED FLUID RETENTION Time Seen by Provider: 03/15/25 00:55 History of Present Illness HPI narrative: patient 70-year-old gentleman who presents emergency department with chief complaint of lower extremity edema and swelling the patient was just in the hospital after he had pneumonia and sepsis the patient left AMA yesterday and came back in today after he has noticed that he has been swelling up more and reports his abdomen is more distended patient has prior history of cirrhosis and reports that he had 5 L of fluid drained from his abdomen 3 days ago Related Data Home Medications ?Medication ?Instructions ?Recorded ?Confirmed ?Last Taken ?Type atorvastatin 10 mg tablet 10 mg PO DAILY 10/30/22 03/12/25 01/03/24 History clopidogrel 75 mg tablet 75 mg PO DAILY 10/30/22 03/12/25 12/30/23 History insulin lispro protamine-lispro 40 unit subcut BID 10/30/22 03/12/25 01/04/24 History 100 unit/mL (75-25) subcutaneous susp (Humalog Mix 75-25(U-100)Insuln) albuterol sulfate 90 mcg/actuation 1 puff inhalation Q4-6H PRN 12/16/23 03/12/25 Unknown History aerosol inhaler Shortness Of Breath Or Wheezing carvedilol 6.25 mg tablet 3.125 mg PO BID 12/16/23 03/12/25 01/04/24 History nitroglycerin 0.4 mg sublingual 0.4 mg sublingual PRN PRN Chest 12/16/23 03/12/25 Unknown History tablet Pain sacubitril 24 mg-valsartan 26 mg 1 tablet PO BID 12/16/23 03/12/25 01/04/24 History tablet (Entresto) allopurinol 300 mg tablet 300 mg PO DAILY 03/12/25 03/12/25 Unknown History furosemide 20 mg tablet 20 mg PO Q12H 03/12/25 03/12/25 03/11/25 History hydrocodone 10 mg-acetaminophen 10 - 325 tablet PO BID PRN pain 03/12/25 03/12/25 03/11/25 History 325 mg tablet olanzapine 10 mg tablet 10 mg PO HS 03/12/25 03/12/25 Unknown History pantoprazole 40 mg tablet,delayed 40 mg PO Q12H 03/12/25 03/12/25 Unknown History release Allergies Allergy/AdvReac Type Severity Reaction Status Date / Time Penicillins Allergy Unknown Verified 03/12/25 12:03 Review of Systems Review of Systems: A 10 system review of systems was completed on the patient and is negative except for what is stated in the HPI. Nursing and ancillary documentation was reviewed. 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 IDDM (insulin dependent diabetes mellitus) Gout, unspecified Gallstones Essential (primary) hypertension Encounter for screening colonoscopy Encounter for current [facility] use of antiplatelet drug Dietary counseling and surveillance (08/08/16) Chronic obstructive pulmonary disease, unspecified Bipolar disorder, unspecified Surgical History Surgical History History of shoulder surgery biceps tendon repair History of cervical spinal surgery History of carpal tunnel release History of heart bypass surgery 5 way Hx of CABG Family History Family History Mother Family history of chronic obstructive pulmonary disease Patient's mother is Father Family history of chronic obstructive pulmonary disease Patient's father is Other Hypertension Social History Social History Smoking packs per day: 0.5 Smoking cigarettes per day: 10.0 Smoking status: Current every day smoker Tobacco type: cigarettes Alcohol intake: never Substance use: never Substance use type: does not use Do You Feel Safe in your Home?: Yes Lack of Transportation: No Lack of Food: Never True Current Housing: I Have Housing Concerned About Future Housing: No Difficulty Paying Gas/Electric Bills: No Difficulty Paying for Meds: No Currently Unemployed: No Education: Decline to Answer Difficulty w/ Childcare or Family Care: No Living arrangements: alone Spiritual care concerns: No Exam Narrative: GENERAL: Well-appearing, well-nourished, and in no acute distress. HEAD: Normocephalic, atraumatic. EYES: PERRLA and EOMI. ENT: Nares clear, no rhinorrhea or epistaxis. Mucous membranes moist. NECK: Supple. CHEST: Clear to auscultation. No respiratory distress. HEART: Regular rate and rhythm. No murmur heard. Normal peripheral pulses. ABDOMEN: Soft, nontender, Distended consistent with ascites, normal active bowel sounds. EXTREMITIES: Normal range of motion. 3+ edema. SKIN: Warm, dry, no rash. NEURO: No focal deficits. Alert and oriented x3. PSYCH: Normal mood and affect. Course Vital Signs Vital signs: Vital Signs Temperature 36.6 C 03/15/25 00:48 Pulse Rate 95 03/15/25 00:48 Respiratory Rate 20 03/15/25 00:48 Blood Pressure 110/70 03/15/25 00:48 Pulse Oximetry 97 03/15/25 00:48 Oxygen Delivery Room Air 03/15/25 00:48 Temperature 36.6 C 03/15/25 00:48 Pulse Rate 95 03/15/25 00:48 Respiratory Rate 20 03/15/25 00:48 Blood Pressure 110/70 03/15/25 00:48 Pulse Oximetry 97 03/15/25 00:48 Oxygen Delivery Room Air 03/15/25 00:48 Medical Decision Making MDM Narrative Medical decision making narrative: differential diagnosis includes fluid overload, renal failure, worsening hepatic failure patient has evidence of large volume ascites and peripheral edema. The patient did have an elevated troponin today case was discussed with the hospitalist patient will be admitted for observation and serial troponins as well as paracente Vital Signs Vital Signs: Vital Signs Temperature 36.6 C 03/15/25 00:48 Pulse Rate 95 03/15/25 00:48 Respiratory Rate 20 03/15/25 00:48 Blood Pressure 110/70 03/15/25 00:48 Pulse Oximetry 97 03/15/25 00:48 Oxygen Delivery Room Air 03/15/25 00:48 Temperature 36.6 C 03/15/25 00:48 Pulse Rate 95 03/15/25 00:48 Respiratory Rate 20 03/15/25 00:48 Blood Pressure 110/70 03/15/25 00:48 Pulse Oximetry 97 03/15/25 00:48 Oxygen Delivery Room Air 03/15/25 00:48 Lab Data 03/15/25 01:00 03/15/25 01:00 Labs: Lab Results 03/15/25 03/15/25 Range/Units 01:00 01:16 WBC 4.0 L (4.5-10.0) K/mm3 RBC 2.55 L (4.6-6.20) M/mm3 Hgb 8.3 L (14.0-18.0) g/dL Hct 26.6 L (42.0-52.0) % MCV 104.3 H D (80-100) fl MCH 32.5 (26-34) pg MCHC 31.2 L (32-36) g/dl RDW 22.5 H (11.5-14.5) % Plt Count 68 L (150-375) k/mm3 MPV 11.8 H (7.4-10.4) fl Immature Gran % (Auto) 0.2 (0-0.5) % Neut % (Auto) 61.6 (45.5-73.1) % Lymph % (Auto) 23.3 (18.3-44.2) % Bea[place]gard % (Auto) 14.4 H (2.6-8.5) % Eos % (Auto) 0.5 (0-4.4) % Baso % (Auto) 0.0 L (0.2-1.2) % Lymph # (Auto) 0.94 (0.9-3.2) K/mm3 Bea[place]gard # (Auto) 0.6 (0.1-0.6) K/mm3 Eos # (Auto) 0.0 (0-0.3) K/mm3 Baso # (Auto) 0.0 (0.0-0.1) K/mm3 Abs Immat Gran (auto) 0.01 (0.00-0.031) K/mm3 Absolute Neuts (auto) 2.5 (1.3-6.7) K/mm3 Absolute Nucleated RBC 0.000 (0.0-0.012) K/mm3 Band Neutrophils % 0 (0-6) % Nucleated RBC % 0.0 (0.0-0.2) % Platelet Estimate Decreased (Adequate) % Immature Plt Fraction 3.3 (0.9-11.2) % Hypochromasia 1+ Ovalocytes 1+ Schistocytes None seen PT 16.4 H (11.1-14.7) Seconds INR 1.3 APTT 31.4 (22.3-36.8) Seconds Sodium 133 L (137-145) mmol/L Potassium 5.2 H (3.4-5.0) mmol/L Chloride 105 (98-107) mmol/L Carbon Dioxide 20 L (22-30) mmol/L Anion Gap 8 (4-12) mmol/L BUN 41 H D (9-20) mg/dL Creatinine 1.15 (0.7-1.3) mg/dL Estim Creat Clear Calc 75 ml/min Estimated GFR > 60 (59 - ) Glucose 160 H (65-110) mg/dL Calcium 7.6 L (8.4-10.2) mg/dL Total Bilirubin 0.5 (0.2-1.3) mg/dL AST 40 (17-59) U/L ALT 43 (6-50) U/L Alkaline Phosphatase 140 H (38-126) U/L Ammonia < 9 L (9-30) umol/L Troponin I 0.142 H* (0.000-0.034) ng/mL NT-Pro-B Natriuret Pep 2780 H (19.9-100) pg/mL Total Protein 6.0 L (6.3-8.2) g/dL Albumin 3.1 L (3.5-5.1) g/dL Discharge Plan Discharge Clinical Impression: Ascites, Elevated troponin Patient Disposition: Acute Care Hospital Condition: Stable Patient Language: Kosovan Prescriptions: No Action Humalog Mix 75-25(U-100)Insuln 100 unit/mL (75-25) suspension 40 unit subcut BID atorvastatin 10 mg tablet 10 mg PO DAILY clopidogrel 75 mg tablet 75 mg PO DAILY carvedilol 6.25 mg tablet 3.125 mg PO BID nitroglycerin 0.4 mg tablet, sublingual 0.4 mg sublingual PRN PRN (Reason: Chest Pain) Rx Instructions: NOT TO EXCEED 3 TABS albuterol sulfate 90 mcg/actuation HFA aerosol inhaler 1 puff INHALATION Q4-6H PRN (Reason: Shortness Of Breath Or Wheezing) Entresto 24-26 mg tablet 1 tablet PO BID olanzapine 10 mg tablet 10 mg PO HS allopurinol 300 mg tablet 300 mg PO DAILY pantoprazole 40 mg tablet,delayed release (DR/EC) 40 mg PO Q12H furosemide 20 mg tablet 20 mg PO Q12H hydrocodone-acetaminophen 10-325 mg tablet 10 - 325 tablet PO BID PRN (Reason: pain) Follow-up/Referrals: Giuliano Isbell MD [Primary Care Provider] - Time of Disposition: 02:21
[2025-03-15] MEDS: ASPIRIN 81 MG CHEWABLE TABLET 324 MG PO (02:03)
--- NOTE | 2025-03-15 03:53 | ADMGEN ---
This patient, Julius Campos Jr., was admitted to IMU Room 232-01. Patient/family oriented to hospital policies and general routines including ID bracelet, bed and alarms, visiting hours, pain management, procedures, bathroom and other care routines, personal items, smoking policy, room service/diet, and visiting hours. Information on how to activate the Rapid Response Team has been discussed. Patient/Family are encouraged to report perceived risks to care and to ask questions if they do not understand what they are told or what they should do.
[2025-03-15 05:15] LABS: Eosinophils Percent Auto 0.9 % (0-4.4); Hematocrit 24.8 % (42.0-52.0); Hemoglobin 7.8 g/dL (14.0-18.0); Immature Granulocyte Absolute 0.02 K/mm3 (0.00-0.031); Immature Granulocyte Percent A 0.6 % (0-0.5); Immature Platelet Fraction Pct 3.4 % (0.9-11.2); Lymphocytes Absolute Auto 0.93 K/mm3 (0.9-3.2); Lymphocytes Percent Auto 27.9 % (18.3-44.2); Mean Corpuscular HGB Conc 31.5 g/dl (32-36); Mean Corpuscular Hemoglobin 32.6 pg (26-34); Mean Corpuscular Volume 103.8 fl (80-100); Mean Platelet Volume 11.4 fl (7.4-10.4); Monocytes Absolute Auto 0.5 K/mm3 (0.1-0.6); Monocytes Percent Auto 16.2 % (2.6-8.5); Neutrophils Absolute Auto 1.8 K/mm3 (1.3-6.7); Neutrophils Percent Auto 54.4 % (45.5-73.1); Platelet Count Result 62 k/mm3 (150-375); Red Blood Count 2.39 M/mm3 (4.6-6.20); Red Cell Distribution Width 22.6 % (11.5-14.5); White Blood Count 3.3 K/mm3 (4.5-10.0)
[2025-03-15 05:28] LABS: Anion Gap 7 mmol/L (4-12); Blood Urea Nitrogen 43 mg/dL (9-20); Calcium 7.4 mg/dL (8.4-10.2); Carbon Dioxide 20 mmol/L (22-30); Chloride 107 mmol/L (98-107); Estimated CRCL calculation 74 ml/min; Estimated Glomerular Filt Rate > 60; Glucose 144 mg/dL (65-110); Magnesium 2.5 mg/dL (1.6-2.3); Potassium 4.8 mmol/L (3.4-5.0); Sodium 134 mmol/L (137-145)
[2025-03-15 05:31] LABS: Lactic Acid Reflex 1.4 mmol/L (0.7-2.0)
[2025-03-15 05:41] LABS: Troponin I 0.129 ng/mL (0.000-0.034)
[2025-03-15 07:05] LABS: Anisocytosis 2+; Hypochromasia 1+; Ovalocytes 1+; Platelet Estimate Decreased (Adequate); Schistocytes None Seen
[2025-03-15 08:39] LABS: Troponin I 0.134 ng/mL (0.000-0.034)
--- NOTE | 2025-03-15 11:52 | P.HP_ITS ---
H&P: HPI History of Present Illness Date/Time: 03/15/25 11:52 <Anjel Samuels, Student - Last Filed: 03/15/25 15:53> Chief Complaint: Lower Extremity Edema <Anjel Samuels, Student - Last Filed: 03/15/25 15:53> Narrative: Patient is a 70-year-old gentleman with history of CABG, essential hypertension, type 2 diabetes, tobacco use disorder, gout, cirrhosis, and COPD with complaints of leg swelling. Patient was previously admitted to [facility] following a fall where he coughed up blood. He was admitted for pneumonia and discharged with a newly swollen abdomen that wasn't directly addressed. Patient then shortly presented to [place] [facility] on 03/12 for generalized weakness and was admitted to critical care for septic shock with generalized weakness, nausea, and vomiting. Antibiotic regimen beginning 03/12 included ceftriaxone, flagyl, and vancomycin. Shock was treated and resolved as of 03/13. Paracentesis was performed during this stay, removing 5L. Left AMA 03/14, and within 4 hours his legs had doubled in size. He was laying down at this time and had trouble getting out of bed due to the weight in his legs. He noted that the bottom of his feet have been weeping. He proceeded to call for an ambulance. Upon admission, he also had notable ascites that was to be removed via paracentesis. Patients main concern is rapidly accumulating fluid in his legs, and he wants to maintain independence by being discharged home. Denies any fever, chills, weight loss, fatigue, dizziness, chest pain, abdominal pain, denies blood in stool, hematuria, and has been having regular bowel movements. <Anjel Samuels, Student - Last Filed: 03/15/25 15:53> Patient is a 70-year-old gentleman with history of CABG, essential hypertension, type 2 diabetes, tobacco use disorder, gout, cirrhosis, and COPD with complaints of leg swelling. Patient was previously admitted to [facility] following a fall where he coughed up blood. He was admitted for pneumonia and discharged with a newly swollen abdomen that wasn't directly addressed. Patient then shortly presented to [place] [facility] on 03/12 for generalized weakness and was admitted to critical care for septic shock with generalized weakness, nausea, and vomiting. Antibiotic regimen beginning 4/20 included ceftriaxone, flagyl, and vancomycin. Shock was treated and resolved as of 03/13. Paracentesis was performed during this stay, removing 5L. Left AMA 03/14, and within 4 hours his legs had doubled in size. He was laying down at this time and had trouble getting out of bed due to the weight in his legs. He noted that the bottom of his feet have been weeping. He proceeded to call for an ambulance. Upon admission, he also had notable ascites that was to be removed via paracentesis. Patients main concern is rapidly accumulating fluid in his legs, and he wants to maintain independence by being discharged home. Denies any fever, chills, weight loss, fatigue, dizziness, chest pain, abdominal pain, denies blood in stool, hematuria, and has been having regular bowel movements. 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 IDDM (insulin dependent diabetes mellitus) Gout, unspecified Gallstones Essential (primary) hypertension Encounter for screening colonoscopy Encounter for current assisted use of antiplatelet drug Dietary counseling and surveillance (08/08/16) Chronic obstructive pulmonary disease, unspecified Bipolar disorder, unspecified <Anjel Samuels Student - Last Filed: 03/15/25 15:53> Surgical History Surgical History: Surgical History History of shoulder surgery biceps tendon repair History of cervical spinal surgery History of carpal tunnel release History of heart bypass surgery 5 way Hx of CABG <Anjel Samuels Student - Last Filed: 03/15/25 15:53> Family History Family History: Family History Mother Family history of chronic obstructive pulmonary disease Patient's mother is Father Family history of chronic obstructive pulmonary disease Patient's father is Other Hypertension <Anjel Samuels, Student - Last Filed: 03/15/25 15:53> Social History Social History: Social History Smoking packs per day: 1 Smoking cigarettes per day: 20.0 Years smoked: 50 Smoking pack-years: 50.00 Smoking status: Current every day smoker Tobacco type: cigarettes Alcohol intake: never Substance use: current Substance use type: marijuana Last use: 03/02/25 Do You Feel Safe in your Home?: Yes Lack of Transportation: No Lack of Food: Never True Current Housing: I Have Housing Concerned About Future Housing: No Difficulty Paying Gas/Electric Bills: No Difficulty Paying for Meds: No Currently Unemployed: No Education: Bachelor's Degree Difficulty w/ Childcare or Family Care: No Living arrangements: alone Spiritual care concerns: No <Anjel Samuels, Student - Last Filed: 03/15/25 15:53> Meds Home Medications and Allergies Home medications: Home Medications ?Medication ?Instructions ?Recorded ?Confirmed ?Type atorvastatin 10 mg tablet 10 mg PO DAILY 10/30/22 03/15/25 History clopidogrel 75 mg tablet 75 mg PO DAILY 10/30/22 03/15/25 History insulin lispro protamine-lispro 40 unit subcut BID 10/30/22 03/15/25 History 100 unit/mL (75-25) subcutaneous susp (Humalog Mix 75-25(U-100)Insuln) albuterol sulfate 90 mcg/actuation 1 puff inhalation Q4-6H PRN 12/16/23 03/15/25 History aerosol inhaler Shortness Of Breath Or Wheezing carvedilol 6.25 mg tablet 3.125 mg PO BID 12/16/23 03/15/25 History nitroglycerin 0.4 mg sublingual 0.4 mg sublingual PRN PRN Chest 12/16/23 03/15/25 History tablet Pain sacubitril 24 mg-valsartan 26 mg 1 tablet PO BID 12/16/23 03/15/25 History tablet (Entresto) allopurinol 300 mg tablet 300 mg PO DAILY 03/12/25 03/15/25 History furosemide 20 mg tablet 20 mg PO Q12H 03/12/25 03/15/25 History hydrocodone 10 mg-acetaminophen 10 - 325 tablet PO BID PRN pain 03/12/25 03/15/25 History 325 mg tablet olanzapine 10 mg tablet 10 mg PO HS 03/12/25 03/15/25 History pantoprazole 40 mg tablet,delayed 40 mg PO Q12H 03/12/25 03/15/25 History release <Anjel Samuels, Student - Last Filed: 03/15/25 15:53> Allergies/Adverse reactions: Allergies Allergy/AdvReac Type Severity Reaction Status Date / Time Penicillins Allergy Unknown Verified 03/12/25 12:03 <Anjel Samuels, Student - Last Filed: 03/15/25 15:53> Vital Signs Vital Signs - 24 hr 03/15/25 00:48 03/15/25 01:00 03/15/25 02:30 Temperature 98 F Pulse Rate 95 93 92 Respiratory Rate 20 14 16 Blood Pressure 110/70 97/64 L 105/68 Pulse Oximetry 97 98 95 Oxygen Delivery Room Air 03/15/25 03:22 03/15/25 04:00 03/15/25 04:00 Temperature 97.5 F L Pulse Rate 98 93 Respiratory Rate 14 20 Blood Pressure 99/59 L Pulse Oximetry 96 97 Oxygen Delivery 03/15/25 04:08 03/15/25 06:00 03/15/25 08:00 Temperature 98.0 F Pulse Rate 92 80 81 Respiratory Rate 14 20 Blood Pressure 97/58 L Pulse Oximetry 96 95 Oxygen Delivery Room Air 03/15/25 08:00 03/15/25 08:00 03/15/25 10:00 Temperature Pulse Rate 90 86 Respiratory Rate Blood Pressure Pulse Oximetry Oxygen Delivery Room Air 03/15/25 11:48 Temperature 97.5 F L Pulse Rate 71 Respiratory Rate 20 Blood Pressure 84/58 L Pulse Oximetry 96 Oxygen Delivery <Anjel Samuels, Student - Last Filed: 03/15/25 15:53> Exam Narrative: General: Pleasant, no acute distress, appears stated age. Eyes: EOMI, PERRLA ENT: No rhinorrhea or epistaxis. Moist mucous membranes. No neck masses, bandaged lesion on right side of neck. Pulmonary: Some expiratory wheezing, more evident when patient supine Cardiovascular Heart: S1, S2, normal rhythm, no murmur, rub, or gallop; no thrill or palpable murmurs on palpation. Gastrointestinal: Distended consistent with ascites, normal active bowel sounds. No TTP. Skin: Warm, dry, no rash Musculoskeletal: Lower extremity pitting edema 3+, weeping visible from feet Neurologic: A&O x3, no focal deficits, strength intact bilaterally. Able to move from chair to bed for exam with relative ease. <Anjel Samuels Student - Last Filed: 03/15/25 15:53> H&P: Results Labs Labs: Short CBC 03/15/25 03/15/25 Range/Units 01:00 04:53 WBC 4.0 L 3.3 L (4.5-10.0) K/mm3 Hgb 8.3 L 7.8 L (14.0-18.0) g/dL Hct 26.6 L 24.8 L (42.0-52.0) % Plt Count 68 L 62 L (150-375) k/mm3 BMP 03/15/25 03/15/25 01:00 04:53 Sodium 133 L 134 L Potassium 5.2 H 4.8 Chloride 105 107 Carbon Dioxide 20 L 20 L BUN 41 H D 43 H Creatinine 1.15 1.11 Glucose 160 H 144 H Calcium 7.6 L 7.4 L Cardiac Enzymes 03/15/25 03/15/25 03/15/25 Range/Units 01:00 04:53 07:52 Troponin I 0.142 H* 0.129 H* 0.134 H* (0.000-0.034) ng/mL Liver Function 03/15/25 Range/Units 01:00 Total Bilirubin 0.5 (0.2-1.3) mg/dL AST 40 (17-59) U/L ALT 43 (6-50) U/L Alkaline Phosphatase 140 H (38-126) U/L Albumin 3.1 L (3.5-5.1) g/dL <Anjel Samuels Student - Last Filed: 03/15/25 15:53> Assessment and Plan Assessment and plan (1) Edema of both lower extremities: Code(s): R60.0 - Localized edema <Anjel Samuels Student - Last Filed: 03/15/25 15:53> Status: Acute <Anjel Samuels Last Filed: 03/15/25 15:53> (2) Cirrhosis: Qualifiers: Ascites presence: with ascites Hepatic cirrhosis type: unspecified hepatic cirrhosis Qualified Code(s): K74.60 - Unspecified cirrhosis of liver; R18.8 - Other ascites <Anjel Samuels Last Filed: 03/15/25 15:53> Code(s): K74.60 - Unspecified cirrhosis of liver <Anjel Samuels, Last Filed: 03/15/25 15:53> Status: Acute <Anjel Samuels Last Filed: 03/15/25 15:53> (3) Ascites: Qualifiers: Ascites type: other type Qualified Code(s): R18.8 - Other ascites <Anjel Samuels, Last Filed: 03/15/25 15:53> Code(s): R18.8 - Other ascites <Anjel Samuels Last Filed: 03/15/25 15:53> Status: Acute <Anjel Samuels Last Filed: 03/15/25 15:53> (4) Pneumonia: Qualifiers: Laterality: unspecified laterality Lung location: unspecified part of lung Pneumonia type: due to unspecified organism Qualified Code(s): J18.9 - Pneumonia, unspecified organism <Anjel Samuels Last Filed: 03/15/25 15:53> Code(s): J18.9 - Pneumonia, unspecified organism <Anjel Samuels, Last Filed: 03/15/25 15:53> Status: Acute <Anjel Samuels Last Filed: 03/15/25 15:53> (5) Chronic obstructive pulmonary disease, unspecified: Qualifiers: COPD type: unspecified COPD Qualified Code(s): J44.9 - Chronic obstructive pulmonary disease, unspecified <Anjel Samuels, Last Filed: 03/15/25 15:53> Code(s): J44.9 - Chronic obstructive pulmonary disease, unspecified <Anjel Samuels Last Filed: 03/15/25 15:53> Status: Acute <Anjel Samuels Student - Last Filed: 03/15/25 15:53> (6) Diabetes: Qualifiers: Diabetes mellitus complication status: without complication 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 insulin use: with transportation inspector use Diabetes mellitus type: type 2 Qualified Code(s): E11.9 - Type 2 diabetes mellitus without complications; 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 <Anjel Samuels - Last Filed: 03/15/25 15:53> Code(s): E11.9 - Type 2 diabetes mellitus without complications <Anjel Samuels - Last Filed: 03/15/25 15:53> Status: Acute <Anjel Samuels - Last Filed: 03/15/25 15:53> (7) Essential (primary) hypertension: Code(s): I10 - Essential (primary) hypertension <Anjel EstradaNicole Arvind, - Last Filed: 03/15/25 15:53> Status: Acute <Anjel Samuels - Last Filed: 03/15/25 15:53> (8) GERD (gastroesophageal reflux disease): Qualifiers: Esophagitis presence: esophagitis presence not specified Qualified Code(s): K21.9 - Gastro-esophageal reflux disease without esophagitis <Anjel EstradaNicole Arvind, - Last Filed: 03/15/25 15:53> Code(s): K21.9 - Gastro-esophageal reflux disease without esophagitis <Anjel EstradaNicole Arvind, - Last Filed: 03/15/25 15:53> Status: Acute <Anjel Samuels, - Last Filed: 03/15/25 15:53> Assessment and Plan: Edema of lower extremities: - New onset bilateral lower extremity edema, occurred during previous admission - Thought to be due to cirrhosis - Elevated Pro BNP, slightly elevated troponin. Patients systolic function was determined to be slightly decreased with echocardiogram and diastolic function intact. - Will resume entresto when patient's blood pressure returns closer to baseline, currently 84/58 - Utilize darrin wraps and leg elevation for symptom alleviation Cirrhosis/Ascites: - Ascites present since recent hospital stay, starting around the beginning of February - Total of 10 L fluid drained, with 5L 03/13 and 03/15 respectively - Cloudy appearance, though PMN in peritoneal fluid from 03/13 is 10.44, negative for abdominal pain, fever, and leukocytosis - No SBP suspected, continue monitoring for symptoms Pneumonia: - Treated for septic shock 03/12 through 03/13 with suspected cause of pneumonia - Patient left AMA while on a regimen of ceftriaxone, Flagyl, and vancomycin - CXR clear according to radiology 03/15, but given patients medical history will continue treating pneumonia to complete course with levofloxacin x5 days COPD: - 50 pack years, chronic condition, managed with Q4-6H PRN albuterol for SOB/wheezing at home, continued inpatient - Patient recently quit smoking following hospitalization at [facility] Diabetes: - Hypoglycemia protocol with low dose sliding scale ordered - 5.6 a1c on 03/12/25 Hypertension: - Continue carvedilol continued as home medication prescribed, blood pressure has been lower end but WNL GERD: - History of esophageal varices - Patient on pantoprazole previously - Started on protonix inpatient DVT Prophylaxis: - Mechanical, platelets below 100 <Anjel Samuels, Student - Last Filed: 03/15/25 15:53> # Edema of lower extremities: - New onset bilateral lower extremity edema, occurred during previous admission - Thought to be due to cirrhosis - Elevated Pro BNP, slightly elevated troponin-trending Patients systolic function was determined to be slightly decreased with echocardiogram and diastolic function intact in 2020 - Will resume entresto when patient's blood pressure returns closer to baseline- was 84/58 in, 101/69 currently - Utilize darrin wraps and leg elevation for symptom alleviation -lasix 40 mg IV # Cirrhosis/Ascites: - Ascites present since recent hospital stay, starting around the beginning of February - Total of 10 L fluid drained, with 5L 03/13 and 03/15 respectively - Cloudy appearance, though PMN in peritoneal fluid from 03/13 is 10.44, negative for abdominal pain, fever, and leukocytosis - No SBP was suspected previous hospitalization continue monitoring for symptoms #Pneumonia: - Treated for septic shock 03/12 through 03/13 with suspected cause of pneumonia - Patient left AMA while on a regimen of ceftriaxone, Flagyl, and vancomycin - CXR clear according to radiology 03/15, but given patients medical history will continue treating pneumonia to complete course with levofloxacin x5 days # COPD: - 50 pack years, chronic condition, managed with Q4-6H PRN albuterol for SOB/wheezing at home, continued inpatient - Patient recently quit smoking following hospitalization at [facility] # Diabetes: - Hypoglycemia protocol with low dose sliding scale ordered - lantus 10 units hs -AccuCheck ac/hs - 5.6 a1c on 03/12/25 # Hypertension # HFpEF EF 45-50% (02/2021) Elevated Pro BNP, slightly elevated troponin-trending Patients systolic function was determined to be slightly decreased with echocardiogram and diastolic function intact in 2020 - Will resume entresto when patient's blood pressure returns closer to baseline- was 84/58 in, 101/69 currently - will restart coreg monitor [place] -remains in IMU # GERD: - History of esophageal varices - Patient on pantoprazole previously - Started on protonix inpatient # cirrhosis # ascites established with international trade specialist in [place] s/p paracentesis DVT Prophylaxis: - Mechanical, platelets below 100 <Debbi Arellano APRN - Last Filed: 03/15/25 16:39> Quality VTE Prophylaxis VTE prophylaxis: mechanical ordered <Anjel Samuels, Student - Last Filed: 03/15/25 15:53>
[2025-03-15] MEDS: allopurinoL 300 MG TABLET PO (13:48)
[2025-03-15] MEDS: CLOPIDOGREL BISULFATE 75 MG TABLET PO (13:48)
[2025-03-15] MEDS: ATORVASTATIN 10 MG TABLET PO (13:48)
[2025-03-15] MEDS: ALBUMIN HUMAN 25% 25 GM/100 ML 100 ML IVPB (13:49)
[2025-03-15] MEDS: levoFLOXacin 750 MG TABLET PO (17:23)
[2025-03-15] MEDS: carvediloL 3.125 MG TABLET PO (17:42)
[2025-03-15 19:25] LABS: Troponin I 0.096 ng/mL (0.000-0.034)
[2025-03-15 20:02] LABS: Glucose Point of Care 116 mg/dl (65-105)
[2025-03-15] MEDS: OLANZapine 5 MG TABLET 10 MG PO (20:53)
[2025-03-15] MEDS: HYDROcodone/acetaminophen (*CRX) 5-325 MG TABLET 1 TAB PO (20:53)
[2025-03-15] MEDS: INSULIN GLARGINE (*BKC) 100 UNITS/ML 10 UNITS SUB-Q (20:59)
[2025-03-16] VITALS (15 sets, daily range): BP systolic 101–127; BP diastolic 40–68; PULSE 62–91; RESP 18–22; TEMP 36.6–36.9; O2SAT 92–100
[2025-03-16 06:52] LABS: Hemoglobin A1C 5.4 % (<5.7)
[2025-03-16 08:22] LABS: Glucose Point of Care 168 mg/dl (65-105)
[2025-03-16] MEDS: carvediloL 3.125 MG TABLET PO ×2 (09:43→18:31)
[2025-03-16] MEDS: ATORVASTATIN 10 MG TABLET PO (09:43)
[2025-03-16] MEDS: allopurinoL 300 MG TABLET PO (09:43)
[2025-03-16] MEDS: FUROSEMIDE INJ 40 MG/4 ML VIAL IV PUSH ×2 (09:44→17:31)
[2025-03-16] MEDS: CLOPIDOGREL BISULFATE 75 MG TABLET PO (09:44)
[2025-03-16 10:18] LABS: Hematocrit 25.5 % (42.0-52.0); Mean Corpuscular HGB Conc 31.4 g/dl (32-36); Mean Corpuscular Hemoglobin 32.4 pg (26-34); Mean Corpuscular Volume 103.2 fl (80-100); Mean Platelet Volume 11.3 fl (7.4-10.4); Platelet Count Result 68 k/mm3 (150-375); Red Blood Count 2.47 M/mm3 (4.6-6.20); Red Cell Distribution Width 22.1 % (11.5-14.5); White Blood Count 2.7 K/mm3 (4.5-10.0)
[2025-03-16 10:44] LABS: Anion Gap 8 mmol/L (4-12); Blood Urea Nitrogen 30 mg/dL (9-20); Calcium 7.9 mg/dL (8.4-10.2); Carbon Dioxide 24 mmol/L (22-30); Chloride 102 mmol/L (98-107); Estimated CRCL calculation 89 ml/min; Estimated Glomerular Filt Rate > 60; Glucose 219 mg/dL (65-110); Potassium 4.7 mmol/L (3.4-5.0); Sodium 134 mmol/L (137-145)
--- NOTE | 2025-03-16 12:00 | PM.IMPN ---
Progress Note: A&P Assessment and Plan (1) Edema of both lower extremities: Code(s): R60.0 - Localized edema <Anjel Samuels - Last Filed: 03/16/25 14:15> Status: Acute <Anjel Samuels, Last Filed: 03/16/25 14:15> (2) Cirrhosis: Qualifiers: Ascites presence: with ascites Hepatic cirrhosis type: unspecified hepatic cirrhosis Qualified Code(s): K74.60 - Unspecified cirrhosis of liver; R18.8 - Other ascites <Anjel Samuels, - Last Filed: 03/16/25 14:15> Code(s): K74.60 - Unspecified cirrhosis of liver <Anjel Samuels, - Last Filed: 03/16/25 14:15> Status: Acute <Anjel Samuels, Last Filed: 03/16/25 14:15> (3) Ascites: Qualifiers: Ascites type: other type Qualified Code(s): R18.8 - Other ascites <Anjel Samuels, Last Filed: 03/16/25 14:15> Code(s): R18.8 - Other ascites <Anjel Samuels, Last Filed: 03/16/25 14:15> Status: Acute <Anjel Samuels, Last Filed: 03/16/25 14:15> (4) Pneumonia: Qualifiers: Laterality: unspecified laterality Lung location: unspecified part of lung Pneumonia type: due to unspecified organism Qualified Code(s): J18.9 - Pneumonia, unspecified organism <Anjel Samuels, Last Filed: 03/16/25 14:15> Code(s): J18.9 - Pneumonia, unspecified organism <Anjel Samuels, Last Filed: 03/16/25 14:15> Status: Acute <Anjel Samuels, Last Filed: 03/16/25 14:15> (5) Chronic obstructive pulmonary disease, unspecified: Qualifiers: COPD type: unspecified COPD Qualified Code(s): J44.9 - Chronic obstructive pulmonary disease, unspecified <Anjel Samuels, Last Filed: 03/16/25 14:15> Code(s): J44.9 - Chronic obstructive pulmonary disease, unspecified <Anjel Samuels Last Filed: 03/16/25 14:15> Status: Acute <Anjel Samuels Last Filed: 03/16/25 14:15> (6) Diabetes: Qualifiers: Diabetes mellitus complication status: without complication 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 Diabetes mellitus type: type 2 Qualified Code(s): E11.9 - Type 2 diabetes mellitus without complications; 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 <Anjel Samuels Last Filed: 03/16/25 14:15> Code(s): E11.9 - Type 2 diabetes mellitus without complications <Anjel Samuels, Last Filed: 03/16/25 14:15> Status: Acute <Anjel Samuels Last Filed: 03/16/25 14:15> (7) Essential (primary) hypertension: Code(s): I10 - Essential (primary) hypertension <Anjel Samuels Last Filed: 03/16/25 14:15> Status: Acute <Anjel Samuels Last Filed: 03/16/25 14:15> (8) GERD (gastroesophageal reflux disease): Qualifiers: Esophagitis presence: esophagitis presence not specified Qualified Code(s): K21.9 - Gastro-esophageal reflux disease without esophagitis <Anjel Samuels Last Filed: 03/16/25 14:15> Code(s): K21.9 - Gastro-esophageal reflux disease without esophagitis <Anjel Samuels Last Filed: 03/16/25 14:15> Status: Acute <Anjel Samuels Last Filed: 03/16/25 14:15> (9) Anemia: Qualifiers: Anemia type: unspecified type Qualified Code(s): D64.9 - Anemia, unspecified <Anjel Samuels, Last Filed: 03/16/25 14:15> Code(s): D64.9 - Anemia, unspecified <Anjel Samuels Last Filed: 03/16/25 14:15> Status: Acute <Anjel W. Samuels, Student - Last Filed: 03/16/25 14:15> (10) Heart failure with preserved ejection fraction: Qualifiers: Heart failure chronicity: unspecified Qualified Code(s): I50.30 - Unspecified diastolic (congestive) heart failure <Anjel EstradaNicole Arvind, Student - Last Filed: 03/16/25 14:15> Code(s): I50.30 - Unspecified diastolic (congestive) heart failure <Anjel EstradaNicole Samuels, Student - Last Filed: 03/16/25 14:15> Status: Acute <Anjel EstradaNicole Samuels, Student - Last Filed: 03/16/25 14:15> Assessment and Plan: # Edema of lower extremities: - Bilateral lower extremity edema present during previous visit 03/12/25, newly onset at the time. Patient had acute worsening following meal after leaving hospital 03/14 - Cirrhosis vs cardiac cause - see lower plans - Utilize darrin wraps and leg elevation for symptom alleviation - Albumin IV and Lasix 40 IV given to alleviate symptoms 03/16 # Cirrhosis/Ascites: - Ascites present since recent hospital stay, starting around the beginning of February - Total of 10 L fluid drained, with 5L 03/13 and 03/15 respectively - Cloudy appearance, though PMN in peritoneal fluid from 03/13 is 10.44, negative for abdominal pain, fever, and leukocytosis - No SBP suspected, continue monitoring for symptoms established with claim approver in [place] s/p paracentesis - 03/16 symptoms improving, volume hasn't returned according to patient - Ordered alpha fetoprotein (pending), hepatitis ABC panel (all negative), and RUQ ultrasound 03/16 - GI consulted # Pneumonia: - Treated for septic shock 03/12 through 03/13 with suspected cause of pneumonia - Patient left AMA while on a regimen of ceftriaxone, Flagyl, and vancomycin - CXR clear according to radiology 03/15, but given patients medical history will continue treating pneumonia to complete course with levofloxacin x5 days - CXR 03/16 mild opacities in the left mid and lower lung zone which could represent atelectasis and/or pneumonia - Continue levofloxacin tx # COPD: - 50 pack years, chronic condition, managed with Q4-6H PRN albuterol for SOB/wheezing at home, continued inpatient - Patient recently quit smoking following hospitalization at [facility] - Symptoms managed per patient # Diabetes: - Hypoglycemia protocol with low dose sliding scale ordered - lantus 10 units hs - AccuCheck ac/hs - 5.6 a1c on 03/12/25 - 219 serum glucose am 03/16, continue current management # Hypertension # HFpEF EF 45-50% (echo 03/13/25) Elevated Pro BNP 2780, slightly elevated troponin-trending down (.134 to 0.096 over 03/15) - Cardiology consulted - Vitals stable, but waiting for cardiology recommendation regarding restarting entresto - Lipid panel ordered WNL - BP stable 03/16, staying above 100/60 since 04:00 (previously 101/40 at 00:00) - restarted coreg - monitor closely - remains in IMU # GERD: - History of esophageal varices and GERD - Patient on pantoprazole previously - Started on protonix inpatient # Anemia: - History of >16 baseline Hgb(last seen 08/04/24), since previous stay 03/12 has been around 8 - Stool occult ordered - No signs of acute blood loss, denies blood in stool or urine, stable vital signs, no shortness of breath - Dr. Taras soria with claim approver, no concern regarding pancytopenia at this time, will follow # Gout: - Receives allopurinol chronically for gout prevention, continued inpatient # DVT Prophylaxis: - Mechanical, platelets below 100 (68 03/16) <Erin Oleary - Last Filed: 03/16/25 14:15> Subjective Date/time seen: 03/16/25 12:00 <Erin Olaery - Last Filed: 03/16/25 14:15> Interval history: CC: BLE edema, ascites HPI: Patient is a 70-year-old gentleman with history of CABG, essential hypertension, type 2 diabetes, tobacco use disorder (52 pack years), gout, cirrhosis, and COPD with complaints of leg swelling. He was admitted to [facility] for pneumonia and discharged with a newly swollen abdomen. Patient was then admitted to [facility] and treated for septic shock 03/12, shock was treated and resolved as of 03/13. Antibiotic regimen beginning 03/12 included ceftriaxone, flagyl, and vancomycin. Paracentesis was performed during this stay, removing 5L. Left AMA 03/14, and within 4 hours his legs had doubled in size. Then presented to ER and admitted. 03/16 Patient was seen and examined. No acute complaints like chest pain, abdominal pain, weakness, dizziness, blood in stool, hematuria, nausea, vomiting, or difficulty breathing. States swelling has decreased in legs and abdominal distension feels better since yesterday. Newly elicited the patient had a meal heavy in sodium prior to BLE swelling that caused presentation for this stay. Patient sees a dressmaker garment fitter, claim approver, materials technician, and set o type operator outpatient to manage chronic conditions in the HPI, in addition to a PCP. Started seeing claim approver 2 to 3 years ago for cirrhosis. Also states he has good support at home. <Anjel Samuels, Student - Last Filed: 03/16/25 14:15> Review of Systems Review of Systems: All systems reviewed & are unremarkable except as noted in HPI and below <Anjel Samuels, Student - Last Filed: 03/16/25 14:15> Exam Narrative: General: Pleasant, no acute distress, appears stated age. Eyes: EOMI, pupils equal ENT: No rhinorrhea or epistaxis. Moist mucous membranes. No neck masses, bandaged lesion on right side of neck. Pulmonary: Diffuse mild expiratory wheezing Cardiovascular Heart: S1, S2, normal rhythm, no murmur, rub, or gallop; no thrill or palpable murmurs on palpation. Gastrointestinal: Distended consistent with ascites, normal active bowel sounds. No TTP. Skin: Warm, dry, no rash Musculoskeletal: Lower extremity pitting edema 3+, superficial 7 by 8 cm wound on anterior leg, red granulation tissue Neurologic: A&O x3, no focal deficits, strength intact bilaterally. Able to move from chair to bed for exam with relative ease. <Anjel Samuels, Student - Last Filed: 03/16/25 14:15> Objective Data Vital Signs Vital Signs: Vital Signs - 24 hr 03/15/25 14:00 03/15/25 15:29 03/15/25 15:55 Temperature 98.6 F Pulse Rate 88 97 Respiratory Rate 20 Blood Pressure 101/61 Pulse Oximetry 96 95 Oxygen Delivery Room Air 03/15/25 16:00 03/15/25 16:00 03/15/25 17:42 Temperature Pulse Rate 90 88 Respiratory Rate Blood Pressure Pulse Oximetry Oxygen Delivery Room Air 03/15/25 18:00 03/15/25 20:00 03/15/25 20:00 Temperature 98.2 F Pulse Rate 85 86 Respiratory Rate 19 Blood Pressure 95/68 L Pulse Oximetry 100 Oxygen Delivery Room Air 03/15/25 20:00 03/15/25 22:00 03/16/25 00:00 Temperature Pulse Rate 106 H 87 Respiratory Rate Blood Pressure Pulse Oximetry Oxygen Delivery Room Air 03/16/25 00:00 03/16/25 00:00 03/16/25 02:00 Temperature 97.8 F Pulse Rate 64 75 68 Respiratory Rate 18 Blood Pressure 101/40 L Pulse Oximetry 100 Oxygen Delivery 03/16/25 04:00 03/16/25 04:00 03/16/25 04:00 Temperature 98.0 F Pulse Rate 83 68 Respiratory Rate 18 Blood Pressure 101/61 Pulse Oximetry 98 Oxygen Delivery Room Air 03/16/25 06:00 03/16/25 08:00 03/16/25 09:43 Temperature 97.9 F Pulse Rate 88 73 90 Respiratory Rate 20 Blood Pressure 102/63 Pulse Oximetry 96 Oxygen Delivery 03/16/25 11:05 Temperature Pulse Rate Respiratory Rate Blood Pressure Pulse Oximetry Oxygen Delivery Room Air <Anjel Samuels, Student - Last Filed: 03/16/25 14:15> Intake/Output Intake/Output: Intake & Output 03/13/25 03/14/25 03/15/25 03/16/25 23:59 23:59 23:59 23:59 Intake Total 480 Output Total 5000 600 Balance -4520 -600 <Anjel Samuels, Student - Last Filed: 03/16/25 14:15> Meds/Results Medications: Active Medications Generic Name Dose Route Start Last Admin Trade Name Freq PRN Reason Stop Dose Admin Albuterol 1 puff 03/15/25 12:03 Albuterol Sulfate (*Sp) Aerosol 1 Puff INHALATION Q4-6H PRN Shortness Of Breath Or Wheezing Allopurinol 300 mg 03/15/25 13:00 03/16/25 09:43 Allopurinol 300 Mg Tablet PO 300 mg DAILY HERNAN Administration Atorvastatin Calcium 10 mg 03/15/25 13:00 03/16/25 09:43 Atorvastatin 10 Mg Tablet PO 10 mg DAILY HERNNA Administration Carvedilol 3.125 mg 03/15/25 17:00 03/16/25 09:43 Carvedilol 3.125 Mg Tablet PO 3.125 mg BID HERNAN Administration Clopidogrel Bisulfate 75 mg 03/15/25 13:00 03/16/25 09:44 Clopidogrel Bisulfate 75 Mg Tablet PO 75 mg DAILY HERNAN Administration Dextrose 12.5 gm 03/15/25 12:05 Dextrose 50% 25 Gm/50 Ml Syringe IV PUSH PRN PRN Hypoglycemia Protocol Furosemide 40 mg 03/16/25 09:00 03/16/25 09:44 Furosemide Inj 40 Mg/4 Ml Vial IV PUSH 40 mg DAILY HERNAN Administration Furosemide 40 mg 03/16/25 17:00 Furosemide Inj 40 Mg/4 Ml Vial IV PUSH 03/16/25 17:01 ONCE ONE Glucagon 1 mg 03/15/25 12:05 Glucagon For Inj 1 Mg Vial IM PRN PRN Hypoglycemia Protocol Glucose 15 gm 03/15/25 12:05 Glucose Oral Gel 15 Gm Of Glucse In 37.5 Gm Tube PO PRN PRN Hypoglycemia Protocol Dextrose 1,000 mls @ 100 mls/hr 03/15/25 12:05 Dextrose 5% 1,000 Ml IVPB PRN PRN Hypoglycemia Protocol Albumin Human 100 mls @ 60 mls/hr 03/16/25 11:25 Albutein IVPB 03/16/25 13:04 ONCE ONE Insulin Aspart 2 - 5 units 03/15/25 17:00 03/15/25 17:09 Insulin Aspart (*Bkc) 100 Units/Ml SUB-Q Not Given TIDWM HERNAN Protocol Insulin Glargine 10 units 03/15/25 21:00 03/15/25 20:59 Insulin Glargine (*Bkc) 100 Units/Ml SUB-Q 10 units HS HERNAN Administration Levofloxacin 750 mg 03/15/25 14:45 03/15/25 17:23 Levofloxacin 750 Mg Tablet PO 03/19/25 14:31 750 mg DAILY@1430 HERNAN Administration Nitroglycerin 0.4 mg 03/15/25 12:03 Nitroglycerin Sl 0.4 Mg Tablet SUBLINGUAL PRN PRN Chest Pain Olanzapine 10 mg 03/15/25 21:00 03/15/25 20:53 Olanzapine 5 Mg Tablet PO 10 mg HS HERNAN Administration Perflutren Lipid Microsphere 0 ml 03/15/25 16:17 Perflutren Lipid Microspheres 1.5 Ml Vial Diluted To 10 Ml Total Volume IV PUSH 03/18/25 16:17 ONCE PRN adequate visualization Protocol <Anjel Samuels Student - Last Filed: 03/16/25 14:15> Radiology Results: ITS Impressions Paracentesis Ultrasound 03/15/25 10:33 IMPRESSION: 1. Successful ultrasound-guided paracentesis yielding 5000 mL of pale cloudy yellow fluid. Chest X-Ray 03/16/25 09:34 IMPRESSION: 1. Mild opacities in the left mid and lower lung zone which could represent atelectasis and/or pneumonia. <Anjel Samuels Student - Last Filed: 03/16/25 14:15> Labs Labs: Laboratory Results - last 24 hr 03/15/25 03/15/25 03/15/25 04:47 18:48 19:43 WBC RBC Hgb Hct MCV MCH MCHC RDW Plt Count MPV % Immature Plt Fraction Sodium Potassium Chloride Carbon Dioxide Anion Gap BUN Creatinine Estim Creat Clear Calc Estimated GFR Glucose POC Capillary Glucose 116 H Hemoglobin A1c 5.4 Calcium Troponin I 0.096 H* 03/16/25 03/16/25 03/16/25 07:43 10:03 10:04 WBC 2.7 L RBC 2.47 L Hgb 8.0 L Hct 25.5 L MCV 103.2 H MCH 32.4 MCHC 31.4 L RDW 22.1 H Plt Count 68 L MPV 11.3 H % Immature Plt Fraction 5.0 Sodium 134 L Potassium 4.7 Chloride 102 Carbon Dioxide 24 Anion Gap 8 BUN 30 H D Creatinine 0.91 Estim Creat Clear Calc 89 Estimated GFR > 60 Glucose 219 H POC Capillary Glucose 168 H Hemoglobin A1c Calcium 7.9 L Troponin I <Anjel Samuels Student - Last Filed: 03/16/25 14:15> Quality VTE Prophylaxis VTE prophylaxis: mechanical ordered <Anjel Samuels Student - Last Filed: 03/16/25 14:15> Hospitalist [facility] Advance Care Plan I have confirmed that the patient's Advanced Care Plan is present, code status is documented, or surrogate decision maker is listed in patient medical record.: Yes <Mannie Grajeda MD - Last Filed: 03/16/25 16:49> Medication Reconciliation I have utilized all available resources to obtain, update and review the patients current medications (includes all prescriptions, OTC, herbals, cannabis, and nutritional supplements).: Yes <Mannie Grajeda MD - Last Filed: 03/16/25 16:49>
[2025-03-16 12:14] LABS: Cholesterol 96 mg/dL (0-200); HDL Direct 48 mg/dL; Triglycerides 80 mg/dL (<150)
[2025-03-16 12:29] LABS: LDL Cholesterol Direct < 30 mg/dL
--- NOTE | 2025-03-16 12:29 | P.CONCA_ITS ---
Assessment and Plan Assessment and plan (1) Cardiomyopathy: Code(s): I42.9 - Cardiomyopathy, unspecified Status: Acute Assessment and Plan: Ischemic cardiomyopathy with mildly reduced EF. EF 45-50%. -continue Coreg (2) CAD (coronary artery disease): Code(s): I25.10 - Atherosclerotic heart disease of [place] coronary artery without angina pectoris Status: Acute Assessment and Plan: History of CABG. His coronary artery disease is stable. He is not reporting any anginal symptoms. Continue Plavix, statin (3) CHF (congestive heart failure): Code(s): I50.9 - Heart failure, unspecified Status: Acute Assessment and Plan: Acute on chronic systolic heart failure. Improving with diuresis. -increase furosemide to 40 mg IV b.i.d. -Strict intake and output -daily weights -2 L fluid restriction -CHF counseling History of Present Illness History of Present Illness Consult date/time: 03/16/25 12:29 Requesting physician: Mannie Grajeda MD Consult reason: congestive heart failure Reason For Visit: peripheral edema, ascites, elevated troponin Narrative: Julius Campos is a 70 year old male with COPD, CAD (CABG x 5 in 2017), cardiomyopathy (EF 35%), and nonalcoholic cirrhosis of the liver (follows with Dr. Lugo at [facility]). Patient was recently hospitalized at [facility] from 02/19/25 - 03/05/2025 for septic shock secondary to pneumonia. I saw him in the hospital last week because of chest pain - he was admitted at that time for weakness, nausea, vomiting and abdominal distension. He left [place] from that hospitalization. He returns to the hospital now with bilateral lower extremity swelling. He has swelling when he left the hospital last week which quickly worsened. He denies any chest pain, shortness of breath, palpitations. He has been started on IV furosemide and has already noticed an improvement in his swelling. 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 IDDM (insulin dependent diabetes mellitus) Gout, unspecified Gallstones Essential (primary) hypertension Encounter for screening colonoscopy Encounter for current snf use of antiplatelet drug Dietary counseling and surveillance (08/08/16) Chronic obstructive pulmonary disease, unspecified Bipolar disorder, unspecified Surgical History Surgical History History of shoulder surgery biceps tendon repair History of cervical spinal surgery History of carpal tunnel release History of heart bypass surgery 5 way Hx of CABG Family History Family History Mother Family history of chronic obstructive pulmonary disease Patient's mother is Father Family history of chronic obstructive pulmonary disease Patient's father is Other Hypertension Social History Social History Smoking packs per day: 1 Smoking cigarettes per day: 20.0 Years smoked: 50 Smoking pack-years: 50.00 Smoking status: Current every day smoker Tobacco type: cigarettes Alcohol intake: never Substance use: current Substance use type: marijuana Last use: 03/02/25 Do You Feel Safe in your Home?: Yes Lack of Transportation: No Lack of Food: Never True Current Housing: I Have Housing Concerned About Future Housing: No Difficulty Paying Gas/Electric Bills: No Difficulty Paying for Meds: No Currently Unemployed: No Education: Bachelor's Degree Difficulty w/ Childcare or Family Care: No Living arrangements: alone Spiritual care concerns: No Meds Home Medications and Allergies Home Medications ?Medication ?Instructions ?Recorded ?Confirmed ?Type atorvastatin 10 mg tablet 10 mg PO DAILY 10/30/22 03/15/25 History clopidogrel 75 mg tablet 75 mg PO DAILY 10/30/22 03/15/25 History insulin lispro protamine-lispro 40 unit subcut BID 10/30/22 03/15/25 History 100 unit/mL (75-25) subcutaneous susp (Humalog Mix 75-25(U-100)Insuln) albuterol sulfate 90 mcg/actuation 1 puff inhalation Q4-6H PRN 12/16/23 03/15/25 History aerosol inhaler Shortness Of Breath Or Wheezing carvedilol 6.25 mg tablet 3.125 mg PO BID 12/16/23 03/15/25 History nitroglycerin 0.4 mg sublingual 0.4 mg sublingual PRN PRN Chest 12/16/23 03/15/25 History tablet Pain sacubitril 24 mg-valsartan 26 mg 1 tablet PO BID 12/16/23 03/15/25 History tablet (Entresto) allopurinol 300 mg tablet 300 mg PO DAILY 03/12/25 03/15/25 History furosemide 20 mg tablet 20 mg PO Q12H 03/12/25 03/15/25 History hydrocodone 10 mg-acetaminophen 10 - 325 tablet PO BID PRN pain 03/12/25 03/15/25 History 325 mg tablet olanzapine 10 mg tablet 10 mg PO HS 03/12/25 03/15/25 History pantoprazole 40 mg tablet,delayed 40 mg PO Q12H 03/12/25 03/15/25 History release Allergies Allergy/AdvReac Type Severity Reaction Status Date / Time Penicillins Allergy Unknown Verified 03/12/25 12:03 Vital Signs Vital Signs - 24 hr 03/15/25 14:00 03/15/25 15:29 03/15/25 15:55 Temperature 37.0 C Pulse Rate 88 97 Respiratory Rate 20 Blood Pressure 101/61 Pulse Oximetry 96 95 Oxygen Delivery Room Air 03/15/25 16:00 03/15/25 16:00 03/15/25 17:42 Temperature Pulse Rate 90 88 Respiratory Rate Blood Pressure Pulse Oximetry Oxygen Delivery Room Air 03/15/25 18:00 03/15/25 20:00 03/15/25 20:00 Temperature 36.8 C Pulse Rate 85 86 Respiratory Rate 19 Blood Pressure 95/68 L Pulse Oximetry 100 Oxygen Delivery Room Air 03/15/25 20:00 03/15/25 22:00 03/16/25 00:00 Temperature Pulse Rate 106 H 87 Respiratory Rate Blood Pressure Pulse Oximetry Oxygen Delivery Room Air 03/16/25 00:00 03/16/25 00:00 03/16/25 02:00 Temperature 36.6 C Pulse Rate 64 75 68 Respiratory Rate 18 Blood Pressure 101/40 L Pulse Oximetry 100 Oxygen Delivery 03/16/25 04:00 03/16/25 04:00 03/16/25 04:00 Temperature 36.7 C Pulse Rate 83 68 Respiratory Rate 18 Blood Pressure 101/61 Pulse Oximetry 98 Oxygen Delivery Room Air 03/16/25 06:00 03/16/25 08:00 03/16/25 08:00 Temperature 36.6 C Pulse Rate 88 73 Respiratory Rate 20 Blood Pressure 102/63 Pulse Oximetry 96 Oxygen Delivery Room Air 03/16/25 09:43 03/16/25 11:05 Temperature Pulse Rate 90 Respiratory Rate Blood Pressure Pulse Oximetry Oxygen Delivery Room Air Exam 2 Const: General: comfortable, no acute distress, alert and awake O rientation/consciousness: patient oriented x3 HENMT: Head: normal to inspection Eyes: General: appearance normal, both eyes and all related structures P upils: Equal, round and reactive pupils present Neck: Neck: normal visual inspection and supple Carotids: normal carotid upstroke Resp: Effort & Inspection: normal respiratory effort Auscultation: rales bilateral Cardio: Rate: regular rate Rhythm: regular rhythm Heart sounds: S1 normal heart sound present, S2 normal heart sound present and no murmurs GI: Auscultation: normal bowel sounds Skin: General skin exam: normal color Neuro: General: patient oriented x3 Cranial nerves: Yes Equal, round and reactive pupils present Extrem: General: edema and pedal edema Psych: Appearance: grossly normal Mental Status: mental status grossly normal Results Labs and Meds 03/16/25 10:03 03/16/25 10:04 Lab results: Cardiac Enzymes 03/15/25 Range/Units 18:48 Troponin I 0.096 H* (0.000-0.034) ng/mL Lipids 03/16/25 Range/Units 10:01 Triglycerides 80 (<150) mg/dL Cholesterol 96 (0-200) mg/dL CBC 03/16/25 Range/Units 10:03 WBC 2.7 L (4.5-10.0) K/mm3 RBC 2.47 L (4.6-6.20) M/mm3 Hgb 8.0 L (14.0-18.0) g/dL Hct 25.5 L (42.0-52.0) % Plt Count 68 L (150-375) k/mm3 Comprehensive Metabolic Panel 03/16/25 Range/Units 10:04 Sodium 134 L (137-145) mmol/L Potassium 4.7 (3.4-5.0) mmol/L Chloride 102 (98-107) mmol/L Carbon Dioxide 24 (22-30) mmol/L BUN 30 H D (9-20) mg/dL Creatinine 0.91 (0.7-1.3) mg/dL Glucose 219 H (65-110) mg/dL Calcium 7.9 L (8.4-10.2) mg/dL Intake and Output 03/15/25 03/16/25 03/16/25 23:59 07:59 15:59 Intake Total 240 Output Total 600 Balance 240 -600 Intake: Oral 240 Output: Urine 600 Other: # Unmeasured Voids 4 Patient Weight 03/16/25 23:59 Weight 121.2 kg
[2025-03-16 12:46] LABS: Hepatitis B Surface Antigen Negative (Negative)
[2025-03-16 12:52] LABS: HAV RESULT Negative (Negative); Hepatitis B Core IgM Result Negative (Negative)
[2025-03-16 13:04] LABS: Hepatitis C Virus Antibody Negative (Negative)
[2025-03-16] MEDS: ALBUMIN HUMAN 25% 25 GM/100 ML 100 ML IVPB (15:30)
[2025-03-16] MEDS: levoFLOXacin 750 MG TABLET PO (15:30)
[2025-03-16 17:32] LABS: Glucose Point of Care 130 mg/dl (65-105)
[2025-03-16 17:32] LABS: Glucose Point of Care 186 mg/dl (65-105)
[2025-03-16 19:57] LABS: Glucose Point of Care 169 mg/dl (65-105)
[2025-03-16] MEDS: OLANZapine 5 MG TABLET 10 MG PO (20:57)
[2025-03-16] MEDS: INSULIN GLARGINE (*BKC) 100 UNITS/ML 10 UNITS SUB-Q (20:58)
[2025-03-17] VITALS (17 sets, daily range): BP systolic 91–121; BP diastolic 47–73; PULSE 59–100; RESP 16–22; TEMP 36.4–37.1; O2SAT 95–100
--- NOTE | 2025-03-17 05:19 | PC.NURSE ---
Pt is requesting a wound consult, due to fuentes I received at different hospital from sitting in my own urine for 12 days . Pt states, I didn't let anyone look down there, because it's not their business, but now I am hurting and need someone to take some pictures for me . Pt requesting to go to a burn unit, to address his injury. Pt would not let this nurse look at area, however when pt was walking to the bathroom, I could see some purplish areas below buttock area. Wound consult ordered.
[2025-03-17 08:12] LABS: Glucose Point of Care 136 mg/dl (65-105)
--- NOTE | 2025-03-17 08:52 | P.CONGI_ITS ---
Assessment and Plan Assessment and plan (1) Cirrhosis: Qualifiers: Ascites presence: with ascites Hepatic cirrhosis type: unspecified hepatic cirrhosis Qualified Code(s): K74.60 - Unspecified cirrhosis of liver; R18.8 - Other ascites Code(s): K74.60 - Unspecified cirrhosis of liver Status: Acute (2) Ascites: Qualifiers: Ascites type: other type Qualified Code(s): R18.8 - Other ascites Code(s): R18.8 - Other ascites Status: Acute (3) GERD (gastroesophageal reflux disease): Qualifiers: Esophagitis presence: esophagitis presence not specified Qualified Code(s): K21.9 - Gastro-esophageal reflux disease without esophagitis Code(s): K21.9 - Gastro-esophageal reflux disease without esophagitis Status: Acute (4) Colon polyp: Qualifiers: Colon polyp type: adenomatous Colon location: unspecified part of colon Qualified Code(s): D12.6 - Benign neoplasm of colon, unspecified Code(s): K63.5 - Polyp of colon Status: Acute (5) Edema of both lower extremities: Code(s): R60.0 - Localized edema Status: Acute (6) Pancytopenia: Code(s): D61.818 - Other pancytopenia Status: Acute Plan 1. Cirrhosis-Likely KHAN related/pancytopenia/lower extremity edema/CHF: MELD 3.0 13. Decompensated. Pancytopenia may be multifactorial with cirrhosis as a component. WBCs 3, HGB 8, HCT 26, MCV 103, platelets 68, INR 1.3. Total bilirubin 0.5, AST 40, ALT 43, alkaline phosphatase 140. Hepatitis Panel negative. According to the patient he has a history of esophageal varices but most recent EGD showed no varices. He denies any signs of active GI bleeding. No jaundice, scleral icterus, or asterixis noted. He does have persistent ascites. 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 The last time he was seen by Dr. De Jesus been he was not having ascites and was not on any diuretics for hepatic reasons. Patient denies any current or history of EtOH use. He smokes 1 pack per day. He tries to follow a low-salt diet by not ever adding any salt but does not necessarily watch labels closely. Patient has had 2 paracentesis since March 12 removing a total of 10 L of fluid. He is currently on Lasix 40 mg b.i.d. started by cardiology. He denies any recent confusion or acute change in sleeping schedule. Denies any prior history of hepatic encephalopathy. * Variceal screening: History of varices. Last EGD 01/04/2024. Beta crystal: Coreg 3.25 BID * Last paracentesis: 03/15/2025 with 5 liters removed. NO SBP noted. Paracentesis 03/12/2025 with 5L removed. Patient received Albumin this admission. Patient will need to continue receiving albumin with large volume paracentesis * Current diuretics: Lasix 40 mg BID * If ok with Cardiology, patient will need to start Aldactone 100 mg daily and increase to 200 mg daily if the patient is going to remain on Lasix 40 BID. Monitor electrolytes and renal function closely with medication change * Diet: 2 gram sodium diet. Fluid restriction: Yes * History of HE: No Hx of HE not on lactulose or Xifaxan * HCC screening: Last imaging- Abdominal ultrasound 03/16/2025noted perihepatic ascites but no liver mass or lesions . AFP: Pending. * Avoid NSAID's, LUNA, ARBS to preserve renal function * Primary care team to continue monitoring H&H and transfuse as needed but do not transfuse if Hgb is > 7 given his history of varices and portal hypertension Thank you very much for allowing me to share in the care of this very nice patient. This report may have been done utilizing a voice recognition system. Attempts have been made to correct errors. However, there may be uncorrected grammatical, spelling, and recognition errors present. GI Consult Note Consult date/time: 03/17/25 08:52 Reason for consult: Cirrhosis and recurrent ascites HPI: Julius Henrydavin Feliz is a 70 year old male with past medical history of CAD, 5 vessel bypass, COPD, ischemic cardiomyopathy with ejection fraction 45-50%, cirrhosis with recurrent ascites, personal history of colon polyps, diabetes, gout, gallstones, HTN, and bipolar disorder. He presented to the emergency room 03/15/2025 with complaints of lower extremity edema. GI has been consulted for cirrhosis and recurrent ascites. ENDOSCOPY HISTORY: EGD: 01/04/[address] Gonsalez for cirrhosis Findings: The esophagus was examined mucosa was normal with normal Z-line no ulcers or masses. No esophagitis or varices The Z-line was located 42 cm from the incisors Mild gastritis was seen in the stomach. The gastritis had erythematous, edematous, erosive and portal hypertensive changes. No ulcers no gastric varices. No mucosal bleeding. Biopsies taken The bulb and 2nd portion the duodenum was normal with no ulcers or masses Bx results: Stomach, biopsies: - Mild reactive gastropathy - No evidence of gastritis or Helicobacter organisms COLONOSCOPY: 01/04/[address] Gonsalez for personal history of colon polyps and blood in stool Findings: There was a single 4 mm polyp was urged in the cecum. Cold snare polypectomy was performed and polyp was completely excised There were 7 3 mm to 8 mm polyps observed in the transverse colon. One hot snare and 6 cold snare polypectomies were performed and polyps were completely excised There were 2 4 mm to 5 mm polyps observed in the descending colon. Multiple cold snare polypectomies were performed. The polyps were completely excised A few diverticula were present the left colon that were not actively bleeding. No colitis A few medium-sized internal hemorrhoids were seen in the rectum. The hemorrhoids were not actively bleeding 2 year repeat colonoscopy recommended Bx results: Cecal polyp, polypectomy: - Tubular adenoma Transverse colon polyps (x7), polypectomies: - Tubular adenomas (x7) - Fecal material Descending colon polyps (x2), polypectomies: - Tubular adenomas (x2) - Polypoid piece of benign colonic mucosa - Fecal material LABS AND STOOL STUDIES: Labs performed between March 12-: Sodium 134, potassium 4.7, BUN 30, creatinine 0.91, GFR >60 WBC 3, Hgb 8, Hct 26, MCV 103, platelets 68, INR 1.3 Total bilirubin 0.5, AST 40, ALT 43, Alkaline Phos 140, albumin 3.1 Total iron 103, TIBC 278, iron sat 37, ferritin 141 B12 > a 1000, folate 8.0, calcium 7.9, ammonia < 9, TSH 3.590, BNP 2780 Hepatitis panel negative AFP pending IMAGING: Abdominal Ultrasound 03/16/2025: FINDINGS: LIVER: The liver demonstrates coarse echogenicity and is decreased in size. The portal vein is patent, demonstrating hepatopedal flow. The contour of the liver surface is nodular. Perihepatic ascites is noted. GALLBLADDER: No stones are identified within the gallbladder, which is otherwise unremarkable. BILE DUCTS: Common bile duct measures 3.5mm. PANCREAS: Limited evaluation of the pancreas secondary to overlying bowel gas IMPRESSION: Perihepatic ascites. Paracentesis 03/15/2025: IMPRESSION: 1. Successful ultrasound-guided paracentesis yielding 5000 mL of pale cloudy yellow fluid. Paracentesis 03/13/2025: IMPRESSION: 1. Successful ultrasound-guided paracentesis yielding 5000 mL of yellow fluid. Path: Peritoneal fluid, cytology and cell block: - Reactive mesothelial cells - Negative for malignancy. CT chest/abd/pelvis w/contrast 03/12/2025: IMPRESSION: 1. Lingular airspace disease, compatible with pneumonia. New nodular densities right upper lobe may also be infectious/inflammatory, although metastatic disease not excluded. 2: Stable 12 mm pleural-based right lower lobe nodule, likely benign. 3: Cirrhosis of the liver with moderate ascites. 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 IDDM (insulin dependent diabetes mellitus) Gout, unspecified Gallstones Essential (primary) hypertension Encounter for screening colonoscopy Encounter for current [facility] use of antiplatelet drug Dietary counseling and surveillance (08/08/16) Chronic obstructive pulmonary disease, unspecified Bipolar disorder, unspecified Surgical History Surgical History History of shoulder surgery biceps tendon repair History of cervical spinal surgery History of carpal tunnel release History of heart bypass surgery 5 way Hx of CABG Family History Family History Mother Family history of chronic obstructive pulmonary disease Patient's mother is Father Family history of chronic obstructive pulmonary disease Patient's father is Other Hypertension Social History Social History Smoking packs per day: 1 Smoking cigarettes per day: 20.0 Years smoked: 50 Smoking pack-years: 50.00 Smoking status: Current every day smoker Tobacco type: cigarettes Alcohol intake: never Substance use: current Substance use type: marijuana Last use: 03/02/25 Do You Feel Safe in your Home?: Yes Lack of Transportation: No Lack of Food: Never True Current Housing: I Have Housing Concerned About Future Housing: No Difficulty Paying Gas/Electric Bills: No Difficulty Paying for Meds: No Currently Unemployed: No Education: Bachelor's Degree Difficulty w/ Childcare or Family Care: No Living arrangements: alone Spiritual care concerns: No Meds Home Medications and Allergies Home Medications ?Medication ?Instructions ?Recorded ?Confirmed ?Type atorvastatin 10 mg tablet 10 mg PO DAILY 10/30/22 03/15/25 History clopidogrel 75 mg tablet 75 mg PO DAILY 10/30/22 03/15/25 History insulin lispro protamine-lispro 40 unit subcut BID 10/30/22 03/15/25 History 100 unit/mL (75-25) subcutaneous susp (Humalog Mix 75-25(U-100)Insuln) albuterol sulfate 90 mcg/actuation 1 puff inhalation Q4-6H PRN 12/16/23 03/15/25 History aerosol inhaler Shortness Of Breath Or Wheezing carvedilol 6.25 mg tablet 3.125 mg PO BID 12/16/23 03/15/25 History nitroglycerin 0.4 mg sublingual 0.4 mg sublingual PRN PRN Chest 12/16/23 03/15/25 History tablet Pain sacubitril 24 mg-valsartan 26 mg 1 tablet PO BID 12/16/23 03/15/25 History tablet (Entresto) allopurinol 300 mg tablet 300 mg PO DAILY 03/12/25 03/15/25 History furosemide 20 mg tablet 20 mg PO Q12H 03/12/25 03/15/25 History hydrocodone 10 mg-acetaminophen 10 - 325 tablet PO BID PRN pain 03/12/25 03/15/25 History 325 mg tablet olanzapine 10 mg tablet 10 mg PO HS 03/12/25 03/15/25 History pantoprazole 40 mg tablet,delayed 40 mg PO Q12H 03/12/25 03/15/25 History release Allergies Allergy/AdvReac Type Severity Reaction Status Date / Time Penicillins Allergy Unknown Verified 03/12/25 12:03 Vital Signs Vital Signs - 24 hr 03/16/25 09:43 03/16/25 10:00 03/16/25 11:05 Temperature Pulse Rate 90 88 Respiratory Rate Blood Pressure Pulse Oximetry Oxygen Delivery Room Air Fraction of Inspired Oxygen 03/16/25 12:00 03/16/25 12:00 03/16/25 12:00 Temperature 98.4 F Pulse Rate 67 67 Respiratory Rate 22 H Blood Pressure 127/56 L Pulse Oximetry 92 Oxygen Delivery Room Air Fraction of Inspired Oxygen 03/16/25 12:25 03/16/25 14:00 03/16/25 16:00 Temperature Pulse Rate 72 Respiratory Rate Blood Pressure Pulse Oximetry Oxygen Delivery Room Air Room Air Fraction of Inspired Oxygen 03/16/25 16:00 03/16/25 16:00 03/16/25 18:00 Temperature 98.3 F Pulse Rate 62 62 62 Respiratory Rate 20 Blood Pressure 108/68 Pulse Oximetry 98 Oxygen Delivery Fraction of Inspired Oxygen 03/16/25 18:31 03/16/25 20:00 03/16/25 20:00 Temperature 98.3 F Pulse Rate 83 80 Respiratory Rate 20 Blood Pressure 103/63 Pulse Oximetry 100 Oxygen Delivery Room Air Fraction of Inspired Oxygen 03/16/25 20:00 03/16/25 20:53 03/16/25 22:00 Temperature Pulse Rate 70 73 89 Respiratory Rate 20 Blood Pressure Pulse Oximetry 96 Oxygen Delivery Room Air Fraction of Inspired Oxygen 21 03/17/25 00:00 03/17/25 00:00 03/17/25 00:00 Temperature 97.5 F L Pulse Rate 82 67 Respiratory Rate 20 Blood Pressure 117/73 Pulse Oximetry 99 Oxygen Delivery Room Air Fraction of Inspired Oxygen 03/17/25 02:00 03/17/25 04:00 03/17/25 04:00 Temperature Pulse Rate 84 81 Respiratory Rate Blood Pressure Pulse Oximetry Oxygen Delivery Room Air Fraction of Inspired Oxygen 03/17/25 04:00 03/17/25 06:00 03/17/25 07:53 Temperature 98 F 97.9 F Pulse Rate 83 74 85 Respiratory Rate 20 20 Blood Pressure 121/69 117/72 Pulse Oximetry 100 96 Oxygen Delivery Fraction of Inspired Oxygen Results Labs 03/16/25 10:03 03/16/25 10:04 Labs: Short CBC 03/16/25 Range/Units 10:03 WBC 2.7 L (4.5-10.0) K/mm3 Hgb 8.0 L (14.0-18.0) g/dL Hct 25.5 L (42.0-52.0) % Plt Count 68 L (150-375) k/mm3 BMP 03/16/25 10:04 Sodium 134 L Potassium 4.7 Chloride 102 Carbon Dioxide 24 BUN 30 H D Creatinine 0.91 Glucose 219 H Calcium 7.9 L
[2025-03-17] MEDS: CLOPIDOGREL BISULFATE 75 MG TABLET PO (08:58)
[2025-03-17] MEDS: ATORVASTATIN 10 MG TABLET PO (08:58)
[2025-03-17] MEDS: carvediloL 3.125 MG TABLET PO ×2 (08:58→17:14)
[2025-03-17] MEDS: allopurinoL 300 MG TABLET PO (08:58)
[2025-03-17] MEDS: FUROSEMIDE INJ 40 MG/4 ML VIAL IV PUSH ×3 (08:59→18:19)
[2025-03-17 09:34] LABS: Hematocrit 24.4 % (42.0-52.0); Hemoglobin 7.6 g/dL (14.0-18.0); Mean Corpuscular HGB Conc 31.1 g/dl (32-36); Mean Corpuscular Hemoglobin 32.3 pg (26-34); Mean Corpuscular Volume 103.8 fl (80-100); Mean Platelet Volume 11.3 fl (7.4-10.4); Platelet Count Result 74 k/mm3 (150-375); Red Blood Count 2.35 M/mm3 (4.6-6.20); Red Cell Distribution Width 22.3 % (11.5-14.5); White Blood Count 3.2 K/mm3 (4.5-10.0)
[2025-03-17 09:40] LABS: Alanine Aminotransferase 39 U/L (6-50); Albumin Level 3.2 g/dL (3.5-5.1); Alkaline Phosphatase 114 U/L (38-126); Anion Gap 6 mmol/L (4-12); Aspartate Amino Transferase 37 U/L (17-59); Bilirubin,Total 1.1 mg/dL (0.2-1.3); Blood Urea Nitrogen 25 mg/dL (9-20); Calcium 8.1 mg/dL (8.4-10.2); Carbon Dioxide 27 mmol/L (22-30); Chloride 103 mmol/L (98-107); Estimated CRCL calculation 92 ml/min; Estimated Glomerular Filt Rate > 60; Glucose 152 mg/dL (65-110); Potassium 4.5 mmol/L (3.4-5.0); Sodium 136 mmol/L (137-145)
--- NOTE | 2025-03-17 09:42 | PM.PNCARD ---
Progress Note: A&P Assessment and Plan (1) Cardiomyopathy: Code(s): I42.9 - Cardiomyopathy, unspecified Status: Acute Assessment and Plan: Ischemic cardiomyopathy with mildly reduced EF. EF 45-50%. -continue Coreg (2) CAD (coronary artery disease): Code(s): I25.10 - Atherosclerotic heart disease of [place] coronary artery without angina pectoris Status: Acute Assessment and Plan: History of CABG. His coronary artery disease is stable. He is not reporting any anginal symptoms. Continue Plavix, statin (3) CHF (congestive heart failure): Code(s): I50.9 - Heart failure, unspecified Status: Acute Assessment and Plan: Acute on chronic systolic heart failure. Improving with diuresis. -increase furosemide to 40 mg IV b.i.d. -Give metolazone 2.5mg p.o. x 1 today -Strict intake and output -daily weights -2 L fluid restriction -CHF counseling Subjective Date/time seen: 03/17/25 09:42 Interval history: Cardiology follow up visit Feeling better today. Swelling remains significant but has improved. Review of Systems Review of Systems: All systems reviewed & are unremarkable except as noted in HPI and below Exam Const: General: comfortable, no acute distress, alert and awake Orientation/consciousness: patient oriented x3 HENMT: Head: normal to inspection Eyes: General: appearance normal, both eyes and all related structures Pupils: Equal, round and reactive pupils present Neck: Neck: normal visual inspection and supple Carotids: normal carotid upstroke Resp: Effort & Inspection: normal respiratory effort Auscultation: rales bilateral Cardio: Rate: regular rate Rhythm: regular rhythm Heart sounds: S1 normal heart sound present, S2 normal heart sound present and no murmurs GI: Auscultation: normal bowel sounds Skin: General skin exam: normal color Neuro: General: patient oriented x3 Cranial nerves: Yes Equal, round and reactive pupils present Extrem: General: edema and pedal edema Psych: Appearance: grossly normal Mental Status: mental status grossly normal Objective Data Vital Signs Vital Signs: Vital Signs - 24 hr 03/16/25 09:43 03/16/25 10:00 03/16/25 11:05 Temperature Pulse Rate 90 88 Respiratory Rate Blood Pressure Pulse Oximetry Oxygen Delivery Room Air Fraction of Inspired Oxygen 03/16/25 12:00 03/16/25 12:00 03/16/25 12:00 Temperature 36.9 C Pulse Rate 67 67 Respiratory Rate 22 H Blood Pressure 127/56 L Pulse Oximetry 92 Oxygen Delivery Room Air Fraction of Inspired Oxygen 03/16/25 12:25 03/16/25 14:00 03/16/25 16:00 Temperature Pulse Rate 72 Respiratory Rate Blood Pressure Pulse Oximetry Oxygen Delivery Room Air Room Air Fraction of Inspired Oxygen 03/16/25 16:00 03/16/25 16:00 03/16/25 18:00 Temperature 36.8 C Pulse Rate 62 62 62 Respiratory Rate 20 Blood Pressure 108/68 Pulse Oximetry 98 Oxygen Delivery Fraction of Inspired Oxygen 03/16/25 18:31 03/16/25 20:00 03/16/25 20:00 Temperature 36.8 C Pulse Rate 83 80 Respiratory Rate 20 Blood Pressure 103/63 Pulse Oximetry 100 Oxygen Delivery Room Air Fraction of Inspired Oxygen 03/16/25 20:00 03/16/25 20:53 03/16/25 22:00 Temperature Pulse Rate 70 73 89 Respiratory Rate 20 Blood Pressure Pulse Oximetry 96 Oxygen Delivery Room Air Fraction of Inspired Oxygen 21 03/17/25 00:00 03/17/25 00:00 03/17/25 00:00 Temperature 36.4 C L Pulse Rate 82 67 Respiratory Rate 20 Blood Pressure 117/73 Pulse Oximetry 99 Oxygen Delivery Room Air Fraction of Inspired Oxygen 03/17/25 02:00 03/17/25 04:00 03/17/25 04:00 Temperature Pulse Rate 84 81 Respiratory Rate Blood Pressure Pulse Oximetry Oxygen Delivery Room Air Fraction of Inspired Oxygen 03/17/25 04:00 03/17/25 06:00 03/17/25 07:53 Temperature 36.6 C 36.6 C Pulse Rate 83 74 85 Respiratory Rate 20 20 Blood Pressure 121/69 117/72 Pulse Oximetry 100 96 Oxygen Delivery Fraction of Inspired Oxygen 03/17/25 08:58 Temperature Pulse Rate 92 Respiratory Rate Blood Pressure Pulse Oximetry Oxygen Delivery Fraction of Inspired Oxygen Intake/Output Intake/Output: Intake & Output 03/14/25 03/15/25 03/16/25 03/17/25 23:59 23:59 23:59 23:59 Intake Total 480 620 790 Output Total 1851 4929 350 Balance -7850 -898 346 Meds/Results Medications: Active Medications Generic Name Dose Route Start Last Admin Trade Name Freq PRN Reason Stop Dose Admin Albuterol 1 puff 03/15/25 12:03 Albuterol Sulfate (*Sp) Aerosol 1 Puff INHALATION Q4-6H PRN Shortness Of Breath Or Wheezing Allopurinol 300 mg 03/15/25 13:00 03/17/25 08:58 Allopurinol 300 Mg Tablet PO 300 mg DAILY HERNAN Administration Atorvastatin Calcium 10 mg 03/15/25 13:00 03/17/25 08:58 Atorvastatin 10 Mg Tablet PO 10 mg DAILY HERNAN Administration Carvedilol 3.125 mg 03/15/25 17:00 03/17/25 08:58 Carvedilol 3.125 Mg Tablet PO 3.125 mg BID HERNAN Administration Clopidogrel Bisulfate 75 mg 03/15/25 13:00 03/17/25 08:58 Clopidogrel Bisulfate 75 Mg Tablet PO 75 mg DAILY HERNAN Administration Dextrose 12.5 gm 03/15/25 12:05 Dextrose 50% 25 Gm/50 Ml Syringe IV PUSH PRN PRN Hypoglycemia Protocol Furosemide 40 mg 03/16/25 17:00 03/17/25 08:59 Furosemide Inj 40 Mg/4 Ml Vial IV PUSH 40 mg BID HERNAN Administration Glucagon 1 mg 03/15/25 12:05 Glucagon For Inj 1 Mg Vial IM PRN PRN Hypoglycemia Protocol Glucose 15 gm 03/15/25 12:05 Glucose Oral Gel 15 Gm Of Glucse In 37.5 Gm Tube PO PRN PRN Hypoglycemia Protocol Dextrose 1,000 mls @ 100 mls/hr 03/15/25 12:05 Dextrose 5% 1,000 Ml IVPB PRN PRN Hypoglycemia Protocol Insulin Aspart 2 - 5 units 03/15/25 17:00 03/17/25 08:10 Insulin Aspart (*Bkc) 100 Units/Ml SUB-Q Not Given TIDWM [facility] Protocol Insulin Glargine 10 units 03/15/25 21:00 03/16/25 20:58 Insulin Glargine (*Bkc) 100 Units/Ml SUB-Q 10 units HS HERNAN Administration Levofloxacin 750 mg 03/15/25 14:45 03/16/25 15:30 Levofloxacin 750 Mg Tablet PO 03/19/25 14:31 750 mg DAILY@1430 HERNAN Administration Nitroglycerin 0.4 mg 03/15/25 12:03 Nitroglycerin Sl 0.4 Mg Tablet SUBLINGUAL PRN PRN Chest Pain Olanzapine 10 mg 03/15/25 21:00 03/16/25 20:57 Olanzapine 5 Mg Tablet PO 10 mg HS HERNAN Administration Perflutren Lipid Microsphere 0 ml 03/15/25 16:17 Perflutren Lipid Microspheres 1.5 Ml Vial Diluted To 10 Ml Total Volume IV PUSH 03/18/25 16:17 ONCE PRN adequate visualization Protocol Radiology Results: ITS Impressions Paracentesis Ultrasound 03/15/25 10:33 IMPRESSION: 1. Successful ultrasound-guided paracentesis yielding 5000 mL of pale cloudy yellow fluid. Chest X-Ray 03/16/25 09:34 IMPRESSION: 1. Mild opacities in the left mid and lower lung zone which could represent atelectasis and/or pneumonia. Abdomen Ultrasound 03/16/25 19:51 IMPRESSION: Perihepatic ascites. Labs Labs: Laboratory Results - last 24 hr 03/16/25 03/16/25 03/16/25 10:01 10:03 10:04 WBC 2.7 L RBC 2.47 L Hgb 8.0 L Hct 25.5 L MCV 103.2 H MCH 32.4 MCHC 31.4 L RDW 22.1 H Plt Count 68 L MPV 11.3 H % Immature Plt Fraction 5.0 Sodium 134 L Potassium 4.7 Chloride 102 Carbon Dioxide 24 Anion Gap 8 BUN 30 H D Creatinine 0.91 Estim Creat Clear Calc 89 Estimated GFR > 60 Glucose 219 H POC Capillary Glucose Calcium 7.9 L Total Bilirubin AST ALT Alkaline Phosphatase Total Protein Albumin Triglycerides 80 Cholesterol 96 LDL Cholesterol Direct < 30 HDL Direct 48 Hepatitis A IgM Ab Negative Hep Bs Antigen Negative Hep B Core IgM Ab Negative Hepatitis C Ab Screen Negative 03/16/25 03/16/25 03/16/25 11:52 17:14 19:36 WBC RBC Hgb Hct MCV MCH MCHC RDW Plt Count MPV % Immature Plt Fraction Sodium Potassium Chloride Carbon Dioxide Anion Gap BUN Creatinine Estim Creat Clear Calc Estimated GFR Glucose POC Capillary Glucose 186 H 130 H 169 H Calcium Total Bilirubin AST ALT Alkaline Phosphatase Total Protein Albumin Triglycerides Cholesterol LDL Cholesterol Direct HDL Direct Hepatitis A IgM Ab Hep Bs Antigen Hep B Core IgM Ab Hepatitis C Ab Screen 03/17/25 03/17/25 07:54 09:16 WBC 3.2 L RBC 2.35 L Hgb 7.6 L Hct 24.4 L MCV 103.8 H MCH 32.3 MCHC 31.1 L RDW 22.3 H Plt Count 74 L MPV 11.3 H % Immature Plt Fraction 5.0 Sodium 136 L Potassium 4.5 Chloride 103 Carbon Dioxide 27 Anion Gap 6 BUN 25 H Creatinine 0.88 Estim Creat Clear Calc 92 Estimated GFR > 60 Glucose 152 H POC Capillary Glucose 136 H Calcium 8.1 L Total Bilirubin 1.1 AST 37 ALT 39 Alkaline Phosphatase 114 Total Protein 6.0 L Albumin 3.2 L Triglycerides Cholesterol LDL Cholesterol Direct HDL Direct Hepatitis A IgM Ab Hep Bs Antigen Hep B Core IgM Ab Hepatitis C Ab Screen
[2025-03-17] MEDS: ALBUMIN HUMAN 25% 25 GM/100 ML 100 ML IVPB ×2 (10:49→17:14)
[2025-03-17 11:55] LABS: Glucose Point of Care 143 mg/dl (65-105)
--- NOTE | 2025-03-17 12:51 | PM.IMPN ---
Progress Note: A&P Assessment and Plan (1) Edema of both lower extremities: Code(s): R60.0 - Localized edema <Anjel Samuels Last Filed: 03/17/25 15:04> Status: Acute <Anjel Samuels, Last Filed: 03/17/25 15:04> (2) Cirrhosis: Qualifiers: Ascites presence: with ascites Hepatic cirrhosis type: unspecified hepatic cirrhosis Qualified Code(s): K74.60 - Unspecified cirrhosis of liver; R18.8 - Other ascites <Anjel Samuels, - Last Filed: 03/17/25 15:04> Code(s): K74.60 - Unspecified cirrhosis of liver <Anjel Samuels, Last Filed: 03/17/25 15:04> Status: Acute <Anjel Samuels, Last Filed: 03/17/25 15:04> (3) Ascites: Qualifiers: Ascites type: other type Qualified Code(s): R18.8 - Other ascites <Anjel Samuels, Last Filed: 03/17/25 15:04> Code(s): R18.8 - Other ascites <Anjel Samuels, Last Filed: 03/17/25 15:04> Status: Acute <Anjel Samuels, Last Filed: 03/17/25 15:04> (4) Pneumonia: Qualifiers: Laterality: unspecified laterality Lung location: unspecified part of lung Pneumonia type: due to unspecified organism Qualified Code(s): J18.9 - Pneumonia, unspecified organism <Anjel Samuels, Last Filed: 03/17/25 15:04> Code(s): J18.9 - Pneumonia, unspecified organism <Anjel Samuels, Last Filed: 03/17/25 15:04> Status: Acute <Anjel Samuels, Last Filed: 03/17/25 15:04> (5) Chronic obstructive pulmonary disease, unspecified: Qualifiers: COPD type: unspecified COPD Qualified Code(s): J44.9 - Chronic obstructive pulmonary disease, unspecified <Anjel Samuels, Last Filed: 03/17/25 15:04> Code(s): J44.9 - Chronic obstructive pulmonary disease, unspecified <Anjel Samuels Last Filed: 03/17/25 15:04> Status: Acute <Anjel Samuels Last Filed: 03/17/25 15:04> (6) Diabetes: Qualifiers: Diabetes mellitus complication status: without complication Diabetes mellitus intermediate card tender insulin use: with penitentiary use Diabetes mellitus type: type 2 Qualified Code(s): E11.9 - Type 2 diabetes mellitus without complications; Z79.4 - technician terminal and repeater (current) use of insulin <Anjel Samuels Last Filed: 03/17/25 15:04> Code(s): E11.9 - Type 2 diabetes mellitus without complications <Anjel Samuels, Last Filed: 03/17/25 15:04> Status: Acute <Anjel Samuels Last Filed: 03/17/25 15:04> (7) Essential (primary) hypertension: Code(s): I10 - Essential (primary) hypertension <Anjel Samuels Last Filed: 03/17/25 15:04> Status: Acute <Anjel Samuels Last Filed: 03/17/25 15:04> (8) GERD (gastroesophageal reflux disease): Qualifiers: Esophagitis presence: esophagitis presence not specified Qualified Code(s): K21.9 - Gastro-esophageal reflux disease without esophagitis <Anjel Samuels Last Filed: 03/17/25 15:04> Code(s): K21.9 - Gastro-esophageal reflux disease without esophagitis <Anjel Samuels Last Filed: 03/17/25 15:04> Status: Acute <Anjel Samuels Last Filed: 03/17/25 15:04> (9) Anemia: Qualifiers: Anemia type: unspecified type Qualified Code(s): D64.9 - Anemia, unspecified <Anjel Samuels, Last Filed: 03/17/25 15:04> Code(s): D64.9 - Anemia, unspecified <Anjel Samuels Last Filed: 03/17/25 15:04> Status: Acute <Anjel W. Samuels, Student - Last Filed: 03/17/25 15:04> (10) Heart failure with preserved ejection fraction: Qualifiers: Heart failure chronicity: unspecified Qualified Code(s): I50.30 - Unspecified diastolic (congestive) heart failure <Anjel Samuels Student - Last Filed: 03/17/25 15:04> Code(s): I50.30 - Unspecified diastolic (congestive) heart failure <Anjel Samuels, Student - Last Filed: 03/17/25 15:04> Status: Acute <Anjel Samuels, Student - Last Filed: 03/17/25 15:04> (11) Acute on chronic heart failure with mildly reduced ejection fraction (HFmrEF, 41-49%): Code(s): I50.23 - Acute on chronic systolic (congestive) heart failure <Anjel Samuels Student - Last Filed: 03/17/25 15:04> Status: Acute <Anjel Samuels Student - Last Filed: 03/17/25 15:04> (12) Dermatitis associated with incontinence: Code(s): L25.8 - Unspecified contact dermatitis due to other agents; R32 - Unspecified urinary incontinence <Anjel Samuels Student - Last Filed: 03/17/25 15:04> Status: Acute <Anjel Samuels Erin - Last Filed: 03/17/25 15:04> Assessment and Plan: # Edema of lower extremities: - Bilateral lower extremity edema present during previous visit 03/12/25, newly onset at the time. Patient had acute worsening following meal after leaving hospital 03/14 - Cirrhosis vs cardiac cause - see lower plans - Utilize luna wraps and leg elevation for symptom alleviation - Lasix 40 IV BID given to alleviate symptoms 03/16, continue as of 03/17, along with IV Albumin - Symptoms improving, patient agreeable with plan # Cirrhosis/Ascites: - Ascites present since recent hospital stay, starting around the beginning of February - Total of 10 L fluid drained, with 5L 03/13 and 03/15 respectively - Cloudy appearance, though PMN in peritoneal fluid from 03/13 is 10.44, negative for abdominal pain, fever, and leukocytosis - No SBP suspected, continue monitoring for symptoms established with monkey trainer in [facility] s/p paracentesis - 03/16 symptoms improving, volume hasn't returned according to patient - Ordered alpha fetoprotein (pending), hepatitis ABC panel (all negative), and RUQ ultrasound 03/16 - GI consulted - Cirrhosis- likely KHAN related. Pancytopenia may be multifactorial with cirrhosis as a component. - Continue coreg for variceal history - If ok with cardiology, start Aldactone 100 mg daily and increase to 200mg daily if patient stays on lasix 40 BID - Monitor electrolytes and renal fxn closely - 2 gram sodium diet, fluid restriction - RUQ ultrasound perihepatic ascites but no liver mass or lesions - Avoid NSAIDS, LUNA, ARBS to preserve kidney fxn - Transfuse if hgb under 7 # Pneumonia: - Treated for septic shock 03/12 through 03/13 with suspected cause of pneumonia - Patient left AMA while on a regimen of ceftriaxone, Flagyl, and vancomycin - CXR clear according to radiology 03/15, but given patients medical history will continue treating pneumonia to complete course with levofloxacin x5 days - CXR 03/16 mild opacities in the left mid and lower lung zone which could represent atelectasis and/or pneumonia - Mild expiratory wheezing, otherwise clear lungs - Continue levofloxacin tx # COPD: - 50 pack years, chronic condition, managed with Q4-6H PRN albuterol for SOB/wheezing at home, continued inpatient - Patient recently quit smoking following hospitalization at [facility] - Symptoms managed per patient # Diabetes: - Hypoglycemia protocol with low dose sliding scale ordered - lantus 10 units hs - AccuCheck ac/hs - 5.6 a1c on 03/12/25 - 152 serum glucose am 03/17, continue current management # Hypertension # HFpEF EF 45-50% (echo 03/13/25) Elevated Pro BNP 2780, slightly elevated troponin-trending down (.134 to 0.096 over 03/15) - Vitals stable, but waiting for cardiology recommendation regarding restarting entresto - Lipid panel ordered WNL - BP stable 03/16, staying above 100/60 since 04:00 (previously 101/40 at 00:00) - restarted coreg - monitor closely - remains in IMU - Cardiology consulted - Acute on chronic systolic heart failure - Continue plavix, statin, acute on chronic systolic heart failure improving with diuresis - Strict intake and output, daily weights, 2L fluid restriction, and CHF counseling # GERD: - History of esophageal varices and GERD - Patient on pantoprazole previously - Started on protonix inpatient # Anemia: - History of >16 baseline Hgb(last seen 08/04/24), since previous stay 03/12 has been around 8 - Stool occult ordered, uncollected as of yet - No signs of acute blood loss, denies blood in stool or urine, stable vital signs, no shortness of breath - Dr. Taras soria with monkey trainer, no concern regarding pancytopenia at this time, will follow - Hemoglobin hovering around 8 since admission, most recent 7.8 on 03/17 # Gout: - Receives allopurinol chronically for gout prevention, continued inpatient # Buttock and ischium dermatitis related to incontinence - Wound care consulted, no s/s of infection, no open wounds. Antifungal barrier cream to protect and treat, patient educated on self care - Continued monitoring of patient symptoms # DVT Prophylaxis: - Mechanical, platelets below 100 (74 03/16) <Erin Oleary - Last Filed: 03/17/25 15:04> Subjective Date/time seen: 03/17/25 12:51 <Anjel Samuels Student - Last Filed: 03/17/25 15:04> Interval history: CC: BLE edema, ascites HPI: Patient is a 70-year-old gentleman with history of CABG, essential hypertension, type 2 diabetes, tobacco use disorder (52 pack years), gout, cirrhosis, and COPD with complaints of leg swelling. He was admitted to [place] for pneumonia and discharged with a newly swollen abdomen. Patient was then admitted to [place] and treated for septic shock 03/12, shock was treated and resolved as of 03/13. Antibiotic regimen beginning 03/12 included ceftriaxone, flagyl, and vancomycin. Paracentesis was performed during this stay, removing 5L. Left AMA 03/14, and within 4 hours his legs had doubled in size. Then presented to ER and admitted. 03/17 Patient was seen and examined. States swelling has decreased in legs and abdominal distension feels better. Patient has some chest discomfort related to anxiety, which is a chronic condition. States his home medication olanzapine helps which was continued in hospital. Buttock rash has been a chronic issue since [place] visit a month ago, wound care saw patient and he is happy with barrier cream. Denies abdominal pain, weakness, dizziness, blood in stool, hematuria, nausea, vomiting, or new difficulty breathing. Also seeks home nurse when discharged. <Anjel Samuels Student - Last Filed: 03/17/25 15:04> CC: BLE edema, ascites HPI: Patient is a 70-year-old gentleman with history of CABG, essential hypertension, type 2 diabetes, tobacco use disorder (52 pack years), gout, cirrhosis, and COPD with complaints of leg swelling. He was admitted to [place] for pneumonia and discharged with a newly swollen abdomen. Patient was then admitted to [place] and treated for septic shock 03/12, shock was treated and resolved as of 03/13. Antibiotic regimen beginning 03/12 included ceftriaxone, flagyl, and vancomycin. Paracentesis was performed during this stay, removing 5L. Left AMA 03/14, and within 4 hours his legs had doubled in size. Then presented to ER and admitted. 03/17 Patient was seen and examined. States swelling has decreased in legs and abdominal distension feels better. Patient has some chest discomfort related to anxiety, which is a chronic condition. States his home medication olanzapine helps which was continued in hospital. Buttock rash has been a chronic issue since [place] visit a month ago, wound care saw patient and he is happy with barrier cream. Denies abdominal pain, weakness, dizziness, blood in stool, hematuria, nausea, vomiting, or new difficulty breathing. Patient will received albumin x 2 with Lasix. Also seeks home nurse when discharged. <Mannie Grajeda MD - Last Filed: 03/17/25 16:10> Review of Systems Review of Systems: All systems reviewed & are unremarkable except as noted in HPI and below <Anjel Samuels, Student - Last Filed: 03/17/25 15:04> Exam Narrative: General: Pleasant, no acute distress, appears stated age. Eyes: EOMI, pupils equal ENT: No rhinorrhea or epistaxis. Moist mucous membranes. No neck masses, bandaged lesion on right side of neck. Pulmonary: Diffuse mild expiratory wheezing Cardiovascular Heart: S1, S2, normal rhythm, no murmur, rub, or gallop; no thrill or palpable murmurs on palpation. Gastrointestinal: Distended consistent with ascites, normal active bowel sounds. No TTP. Skin: Warm, dry, no rash Musculoskeletal: Lower extremity pitting edema 3+, superficial 7 by 8 cm wound on anterior leg, red granulation tissue Neurologic: A&O x3, no focal deficits, strength intact bilaterally. Able to move from chair to bed for exam with relative ease. <Anjel Samuels, Student - Last Filed: 03/17/25 15:04> Objective Data Vital Signs Vital Signs: Vital Signs - 24 hr 03/16/25 14:00 03/16/25 16:00 03/16/25 16:00 Temperature Pulse Rate 72 62 Respiratory Rate Blood Pressure Pulse Oximetry Oxygen Delivery Room Air Fraction of Inspired Oxygen 03/16/25 16:00 03/16/25 18:00 03/16/25 18:31 Temperature 98.3 F Pulse Rate 62 62 83 Respiratory Rate 20 Blood Pressure 108/68 Pulse Oximetry 98 Oxygen Delivery Fraction of Inspired Oxygen 03/16/25 20:00 03/16/25 20:00 03/16/25 20:00 Temperature 98.3 F Pulse Rate 80 70 Respiratory Rate 20 Blood Pressure 103/63 Pulse Oximetry 100 Oxygen Delivery Room Air Fraction of Inspired Oxygen 03/16/25 20:53 03/16/25 22:00 03/17/25 00:00 Temperature 97.5 F L Pulse Rate 73 89 82 Respiratory Rate 20 20 Blood Pressure 117/73 Pulse Oximetry 96 99 Oxygen Delivery Room Air Fraction of Inspired Oxygen 21 03/17/25 00:00 03/17/25 00:00 03/17/25 02:00 Temperature Pulse Rate 67 84 Respiratory Rate Blood Pressure Pulse Oximetry Oxygen Delivery Room Air Fraction of Inspired Oxygen 03/17/25 04:00 03/17/25 04:00 03/17/25 04:00 Temperature 98 F Pulse Rate 81 83 Respiratory Rate 20 Blood Pressure 121/69 Pulse Oximetry 100 Oxygen Delivery Room Air Fraction of Inspired Oxygen 03/17/25 06:00 03/17/25 07:53 03/17/25 08:00 Temperature 97.9 F Pulse Rate 74 85 Respiratory Rate 20 Blood Pressure 117/72 Pulse Oximetry 96 Oxygen Delivery Room Air Fraction of Inspired Oxygen 03/17/25 08:00 03/17/25 08:58 03/17/25 10:00 Temperature Pulse Rate 62 92 59 L Respiratory Rate Blood Pressure Pulse Oximetry Oxygen Delivery Fraction of Inspired Oxygen 03/17/25 11:30 03/17/25 12:00 03/17/25 12:00 Temperature 98.8 F Pulse Rate 80 100 Respiratory Rate 16 Blood Pressure 91/47 L Pulse Oximetry 95 Oxygen Delivery Room Air Fraction of Inspired Oxygen <Anjel Samuels, Student - Last Filed: 03/17/25 15:04> Intake/Output Intake/Output: Intake & Output 03/14/25 03/15/25 03/16/25 03/17/25 23:59 23:59 23:59 23:59 Intake Total 689 359 2640 Output Total 5000 1300 350 Balance -4520 -680 680 <Anjel Samuels, Student - Last Filed: 03/17/25 15:04> Meds/Results Medications: Active Medications Generic Name Dose Route Start Last Admin Trade Name Freq PRN Reason Stop Dose Admin Albuterol 1 puff 03/15/25 12:03 Albuterol Sulfate (*Sp) Aerosol 1 Puff INHALATION Q4-6H PRN Shortness Of Breath Or Wheezing Allopurinol 300 mg 03/15/25 13:00 03/17/25 08:58 Allopurinol 300 Mg Tablet PO 300 mg DAILY HERNAN Administration Atorvastatin Calcium 10 mg 03/15/25 13:00 03/17/25 08:58 Atorvastatin 10 Mg Tablet PO 10 mg DAILY HERNAN Administration Carvedilol 3.125 mg 03/15/25 17:00 03/17/25 08:58 Carvedilol 3.125 Mg Tablet PO 3.125 mg BID HERNAN Administration Clopidogrel Bisulfate 75 mg 03/15/25 13:00 03/17/25 08:58 Clopidogrel Bisulfate 75 Mg Tablet PO 75 mg DAILY HERNAN Administration Dextrose 12.5 gm 03/15/25 12:05 Dextrose 50% 25 Gm/50 Ml Syringe IV PUSH PRN PRN Hypoglycemia Protocol Furosemide 40 mg 03/16/25 17:00 03/17/25 08:59 Furosemide Inj 40 Mg/4 Ml Vial IV PUSH 40 mg BID HERNAN Administration Glucagon 1 mg 03/15/25 12:05 Glucagon For Inj 1 Mg Vial IM PRN PRN Hypoglycemia Protocol Glucose 15 gm 03/15/25 12:05 Glucose Oral Gel 15 Gm Of Glucse In 37.5 Gm Tube PO PRN PRN Hypoglycemia Protocol Dextrose 1,000 mls @ 100 mls/hr 03/15/25 12:05 Dextrose 5% 1,000 Ml IVPB PRN PRN Hypoglycemia Protocol Insulin Aspart 2 - 5 units 03/15/25 17:00 03/17/25 08:10 Insulin Aspart (*Bkc) 100 Units/Ml SUB-Q Not Given [facility] Protocol Insulin Glargine 10 units 03/15/25 21:00 03/16/25 20:58 Insulin Glargine (*Bkc) 100 Units/Ml SUB-Q 10 units HS HERNAN Administration Levofloxacin 750 mg 03/15/25 14:45 03/16/25 15:30 Levofloxacin 750 Mg Tablet PO 03/19/25 14:31 750 mg DAILY@1430 HERNAN Administration Nitroglycerin 0.4 mg 03/15/25 12:03 Nitroglycerin Sl 0.4 Mg Tablet SUBLINGUAL PRN PRN Chest Pain Olanzapine 10 mg 03/15/25 21:00 03/16/25 20:57 Olanzapine 5 Mg Tablet PO 10 mg HS HERNAN Administration Perflutren Lipid Microsphere 0 ml 03/15/25 16:17 Perflutren Lipid Microspheres 1.5 Ml Vial Diluted To 10 Ml Total Volume IV PUSH 03/18/25 16:17 ONCE PRN adequate visualization Protocol <Anjel Samuels, Student - Last Filed: 03/17/25 15:04> Radiology Results: ITS Impressions Paracentesis Ultrasound 03/15/25 10:33 IMPRESSION: 1. Successful ultrasound-guided paracentesis yielding 5000 mL of pale cloudy yellow fluid. Chest X-Ray 03/16/25 09:34 IMPRESSION: 1. Mild opacities in the left mid and lower lung zone which could represent atelectasis and/or pneumonia. Abdomen Ultrasound 03/16/25 19:51 IMPRESSION: Perihepatic ascites. <Anjel Samuels, Student - Last Filed: 03/17/25 15:04> Labs Labs: Laboratory Results - last 24 hr 03/16/25 03/16/25 03/16/25 10:01 11:52 17:14 WBC RBC Hgb Hct MCV MCH MCHC RDW Plt Count MPV % Immature Plt Fraction Sodium Potassium Chloride Carbon Dioxide Anion Gap BUN Creatinine Estim Creat Clear Calc Estimated GFR Glucose POC Capillary Glucose 186 H 130 H Calcium Total Bilirubin AST ALT Alkaline Phosphatase Total Protein Albumin Hepatitis A IgM Ab Negative Hep B Core IgM Ab Negative Hepatitis C Ab Screen Negative 03/16/25 03/17/25 03/17/25 19:36 07:54 09:16 WBC 3.2 L RBC 2.35 L Hgb 7.6 L Hct 24.4 L MCV 103.8 H MCH 32.3 MCHC 31.1 L RDW 22.3 H Plt Count 74 L MPV 11.3 H % Immature Plt Fraction 5.0 Sodium 136 L Potassium 4.5 Chloride 103 Carbon Dioxide 27 Anion Gap 6 BUN 25 H Creatinine 0.88 Estim Creat Clear Calc 92 Estimated GFR > 60 Glucose 152 H POC Capillary Glucose 169 H 136 H Calcium 8.1 L Total Bilirubin 1.1 AST 37 ALT 39 Alkaline Phosphatase 114 Total Protein 6.0 L Albumin 3.2 L Hepatitis A IgM Ab Hep B Core IgM Ab Hepatitis C Ab Screen 03/17/25 11:37 WBC RBC Hgb Hct MCV MCH MCHC RDW Plt Count MPV % Immature Plt Fraction Sodium Potassium Chloride Carbon Dioxide Anion Gap BUN Creatinine Estim Creat Clear Calc Estimated GFR Glucose POC Capillary Glucose 143 H Calcium Total Bilirubin AST ALT Alkaline Phosphatase Total Protein Albumin Hepatitis A IgM Ab Hep B Core IgM Ab Hepatitis C Ab Screen <Anjel Samuels Student - Last Filed: 03/17/25 15:04> Quality VTE Prophylaxis VTE prophylaxis: mechanical ordered <Anjel Samuels Student - Last Filed: 03/17/25 15:04> Hospitalist [facility] Advance Care Plan I have confirmed that the patient's Advanced Care Plan is present, code status is documented, or surrogate decision maker is listed in patient medical record.: Yes <Mannie Grajeda MD - Last Filed: 03/17/25 16:10> Medication Reconciliation I have utilized all available resources to obtain, update and review the patients current medications (includes all prescriptions, OTC, herbals, cannabis, and nutritional supplements).: Yes <Mannie Grajeda MD - Last Filed: 03/17/25 16:10>
[2025-03-17] MEDS: levoFLOXacin 750 MG TABLET PO (13:43)
[2025-03-17] MEDS: oxyCODONE/ACETAMINOPHEN (*CRX) 5-325 MG TABLET 1 TABLET PO ×2 (14:48→21:32)
[2025-03-17 15:55] LABS: Glucose Point of Care 143 mg/dl (65-105)
[2025-03-17] MEDS: metOLazone 2.5 MG TABLET PO (17:15)
[2025-03-17 20:55] LABS: Glucose Point of Care 116 mg/dl (65-105)
[2025-03-17] MEDS: OLANZapine 5 MG TABLET 10 MG PO (21:33)
[2025-03-17] MEDS: INSULIN GLARGINE (*BKC) 100 UNITS/ML 10 UNITS SUB-Q (21:33)
[2025-03-18] VITALS (12 sets, daily range): BP systolic 107–148; BP diastolic 54–78; PULSE 62–96; RESP 16–24; TEMP 36.5–36.8; O2SAT 90–100
[2025-03-18] MEDS: oxyCODONE/ACETAMINOPHEN (*CRX) 5-325 MG TABLET 1 TABLET PO ×4 (03:48→20:21)
--- NOTE | 2025-03-18 06:59 | PM.PNCARD ---
Progress Note: A&P Assessment and Plan (1) Cardiomyopathy: Code(s): I42.9 - Cardiomyopathy, unspecified Status: Acute Assessment and Plan: Ischemic cardiomyopathy with mildly reduced EF. EF 45-50%. -continue Coreg (2) CAD (coronary artery disease): Code(s): I25.10 - Atherosclerotic heart disease of [place] coronary artery without angina pectoris Status: Acute Assessment and Plan: History of CABG. His coronary artery disease is stable. He is not reporting any anginal symptoms. Continue Plavix, statin (3) CHF (congestive heart failure): Code(s): I50.9 - Heart failure, unspecified Status: Acute Assessment and Plan: Acute on chronic systolic heart failure. Improving with diuresis. Needs wound care also. Will consult -continue furosemide to 40 mg IV b.i.d. -metolazone 5 mg p.o. x1 today. -Strict intake and output -daily weights -2 L fluid restriction -CHF counseling Subjective Date/time seen: 03/18/25 06:59 Interval history: Cardiology follow up visit for volume overload, CHF Date of service 03/18/2025: Anxious to go home. Still has lower extremity swelling which is significant. Has blistering and open wounds. No syncope. No chest pain Review of Systems Review of Systems: All systems reviewed & are unremarkable except as noted in HPI and below Constitutional: Constitutional: Denies body ache(s) Eyes: Eyes: Denies blurry vision ENT: Reports Normal hearing present Cardiovascular: Cardiovascular: Reports pedal edema Respiratory: Respiratory: Denies hemoptysis Gastrointestinal: Gastrointestinal: Denies hematemesis Genitourinary: Genitourinary: Denies flank pain Musculoskeletal: Musculoskeletal: Denies arthralgias Integumentary/Breasts: Skin/Breast: Denies dry skin Neurologic: Denies Abnormal speech present Psychiatric: Psychiatric: Denies confusion Endocrine: Endocrine: Denies excessive sweating Hematologic/Lymphatic: Hematologic/Lymphatic: Denies easy bleeding Allergic/Immunologic: Allergic/Immunologic: Denies GI upset with certain foods Exam Narrative: Appears stated age Const: General: comfortable, no acute distress, alert and awake Orientation/consciousness: patient oriented x3 HENMT: Head: normal to inspection Eyes: General: appearance normal, both eyes and all related structures Sclera: sclerae normal Neck: Neck: normal visual inspection and supple Carotids: no bruits Resp: Effort & Inspection: normal respiratory effort Auscultation: rales bilateral Cardio: Rate: regular rate Rhythm: regular rhythm Heart sounds: S1 normal heart sound present, S2 normal heart sound present and no murmurs GI: Auscultation: normal bowel sounds Skin: General skin exam: normal color Neuro: General: patient oriented x3 Sensory Exam: normal sensation Extrem: General: edema and pedal edema Other: Weeping, blistering Psych: Appearance: grossly normal Mental Status: mental status grossly normal Objective Data Vital Signs Vital Signs: Vital Signs - 24 hr 03/17/25 07:53 03/17/25 08:00 03/17/25 08:00 Temperature 36.6 C Pulse Rate 85 62 Respiratory Rate 20 Blood Pressure 117/72 Pulse Oximetry 96 Oxygen Delivery Room Air Fraction of Inspired Oxygen 03/17/25 08:58 03/17/25 10:00 03/17/25 11:30 Temperature 37.1 C Pulse Rate 92 59 L 80 Respiratory Rate 16 Blood Pressure 91/47 L Pulse Oximetry 95 Oxygen Delivery Fraction of Inspired Oxygen 03/17/25 12:00 03/17/25 12:00 03/17/25 14:00 Temperature Pulse Rate 100 86 Respiratory Rate Blood Pressure Pulse Oximetry Oxygen Delivery Room Air Fraction of Inspired Oxygen 03/17/25 15:38 03/17/25 16:00 03/17/25 16:00 Temperature 36.6 C Pulse Rate 69 71 Respiratory Rate 22 H Blood Pressure 109/59 L Pulse Oximetry 100 Oxygen Delivery Room Air Fraction of Inspired Oxygen 03/17/25 17:14 03/17/25 18:00 03/17/25 20:00 Temperature 36.9 C Pulse Rate 75 80 72 Respiratory Rate 18 Blood Pressure 115/63 Pulse Oximetry 100 Oxygen Delivery Fraction of Inspired Oxygen 03/17/25 20:00 03/17/25 20:00 03/17/25 22:00 Temperature Pulse Rate 84 82 80 Respiratory Rate 18 Blood Pressure Pulse Oximetry 100 Oxygen Delivery Room Air Fraction of Inspired Oxygen 03/18/25 00:00 03/18/25 00:00 03/18/25 00:00 Temperature 36.5 C Pulse Rate 86 78 78 Respiratory Rate 16 18 Blood Pressure 148/78 H Pulse Oximetry 100 100 Oxygen Delivery Room Air Fraction of Inspired Oxygen 21 03/18/25 02:00 03/18/25 04:00 03/18/25 04:00 Temperature Pulse Rate 76 76 76 Respiratory Rate 18 Blood Pressure Pulse Oximetry 100 Oxygen Delivery Room Air Fraction of Inspired Oxygen 21 03/18/25 04:00 03/18/25 05:21 Temperature 36.6 C Pulse Rate 96 62 Respiratory Rate 16 Blood Pressure 113/70 Pulse Oximetry 100 Oxygen Delivery Fraction of Inspired Oxygen Intake/Output Intake/Output: Intake & Output 03/15/25 03/16/25 03/17/25 03/18/25 23:59 23:59 23:59 23:59 Intake Total 032 914 2388 300 Output Total 5000 1300 750 Balance -4520 -680 520 300 Meds/Results Medications: Active Medications Generic Name Dose Route Start Last Admin Trade Name Freq PRN Reason Stop Dose Admin Albuterol 1 puff 03/15/25 12:03 Albuterol Sulfate (*Sp) Aerosol 1 Puff INHALATION Q4-6H PRN Shortness Of Breath Or Wheezing Allopurinol 300 mg 03/15/25 13:00 03/17/25 08:58 Allopurinol 300 Mg Tablet PO 300 mg DAILY HERNAN Administration Atorvastatin Calcium 10 mg 03/15/25 13:00 03/17/25 08:58 Atorvastatin 10 Mg Tablet PO 10 mg DAILY HERNAN Administration Carvedilol 3.125 mg 03/15/25 17:00 03/17/25 17:14 Carvedilol 3.125 Mg Tablet PO 3.125 mg BID HERNAN Administration Clopidogrel Bisulfate 75 mg 03/15/25 13:00 03/17/25 08:58 Clopidogrel Bisulfate 75 Mg Tablet PO 75 mg DAILY HERNAN Administration Dextrose 12.5 gm 03/15/25 12:05 Dextrose 50% 25 Gm/50 Ml Syringe IV PUSH PRN PRN Hypoglycemia Protocol Furosemide 40 mg 03/16/25 17:00 03/17/25 18:19 Furosemide Inj 40 Mg/4 Ml Vial IV PUSH 40 mg BID HERNAN Administration Glucagon 1 mg 03/15/25 12:05 Glucagon For Inj 1 Mg Vial IM PRN PRN Hypoglycemia Protocol Glucose 15 gm 03/15/25 12:05 Glucose Oral Gel 15 Gm Of Glucse In 37.5 Gm Tube PO PRN PRN Hypoglycemia Protocol Dextrose 1,000 mls @ 100 mls/hr 03/15/25 12:05 Dextrose 5% 1,000 Ml IVPB PRN PRN Hypoglycemia Protocol Insulin Aspart 2 - 5 units 03/15/25 17:00 03/17/25 17:15 Insulin Aspart (*Bkc) 100 Units/Ml SUB-Q Not Given TIDWM [facility] Protocol Insulin Glargine 10 units 03/15/25 21:00 03/17/25 21:33 Insulin Glargine (*Bkc) 100 Units/Ml SUB-Q 10 units HS HERNAN Administration Levofloxacin 750 mg 03/15/25 14:45 03/17/25 13:43 Levofloxacin 750 Mg Tablet PO 03/19/25 14:31 750 mg DAILY@1430 HERNAN Administration Nitroglycerin 0.4 mg 03/15/25 12:03 Nitroglycerin Sl 0.4 Mg Tablet SUBLINGUAL PRN PRN Chest Pain Olanzapine 10 mg 03/15/25 21:00 03/17/25 21:33 Olanzapine 5 Mg Tablet PO 10 mg HS HERNAN Administration Oxycodone/Acetaminophen 1 tablet 03/17/25 14:03 03/18/25 03:48 Oxycodone/Acetaminophen (*Crx) 5-325 Mg Tablet PO 1 tablet Q4H PRN Administration Pain Rated 7-10 Perflutren Lipid Microsphere 0 ml 03/15/25 16:17 Perflutren Lipid Microspheres 1.5 Ml Vial Diluted To 10 Ml Total Volume IV PUSH 03/18/25 16:17 ONCE PRN adequate visualization Protocol Radiology Results: ITS Impressions Paracentesis Ultrasound 03/15/25 10:33 IMPRESSION: 1. Successful ultrasound-guided paracentesis yielding 5000 mL of pale cloudy yellow fluid. Chest X-Ray 03/16/25 09:34 IMPRESSION: 1. Mild opacities in the left mid and lower lung zone which could represent atelectasis and/or pneumonia. Abdomen Ultrasound 03/16/25 19:51 IMPRESSION: Perihepatic ascites. Labs Labs: Laboratory Results - last 24 hr 03/17/25 03/17/25 03/17/25 07:54 09:16 11:37 WBC 3.2 L RBC 2.35 L Hgb 7.6 L Hct 24.4 L MCV 103.8 H MCH 32.3 MCHC 31.1 L RDW 22.3 H Plt Count 74 L MPV 11.3 H % Immature Plt Fraction 5.0 Sodium 136 L Potassium 4.5 Chloride 103 Carbon Dioxide 27 Anion Gap 6 BUN 25 H Creatinine 0.88 Estim Creat Clear Calc 92 Estimated GFR > 60 Glucose 152 H POC Capillary Glucose 136 H 143 H Calcium 8.1 L Total Bilirubin 1.1 AST 37 ALT 39 Alkaline Phosphatase 114 Total Protein 6.0 L Albumin 3.2 L 03/17/25 03/17/25 15:44 20:53 WBC RBC Hgb Hct MCV MCH MCHC RDW Plt Count MPV % Immature Plt Fraction Sodium Potassium Chloride Carbon Dioxide Anion Gap BUN Creatinine Estim Creat Clear Calc Estimated GFR Glucose POC Capillary Glucose 143 H 116 H Calcium Total Bilirubin AST ALT Alkaline Phosphatase Total Protein Albumin
[2025-03-18 09:39] LABS: INR 1.2; Prothrombin Time 15.9 Seconds (11.1-14.7)
[2025-03-18] MEDS: carvediloL 3.125 MG TABLET PO ×2 (11:07→17:24)
[2025-03-18] MEDS: ALBUMIN HUMAN 25% 25 GM/100 ML 100 ML IVPB ×2 (11:07→17:23)
[2025-03-18] MEDS: allopurinoL 300 MG TABLET PO (11:07)
[2025-03-18] MEDS: FUROSEMIDE INJ 40 MG/4 ML VIAL IV PUSH ×2 (11:07→17:23)
[2025-03-18] MEDS: ATORVASTATIN 10 MG TABLET PO (11:08)
[2025-03-18] MEDS: CLOPIDOGREL BISULFATE 75 MG TABLET PO (11:10)
[2025-03-18 12:00] LABS: Glucose Point of Care 119 mg/dl (65-105)
[2025-03-18] MEDS: metOLazone 5 MG TABLET PO (12:35)
--- NOTE | 2025-03-18 14:20 | P.PNGI_ITS ---
Progress Note: A&P Assessment and Plan (1) Cirrhosis: Qualifiers: Ascites presence: with ascites Hepatic cirrhosis type: unspecified hepatic cirrhosis Qualified Code(s): K74.60 - Unspecified cirrhosis of liver; R18.8 - Other ascites Code(s): K74.60 - Unspecified cirrhosis of liver Status: Acute Assessment and Plan: The patient's ascites and peripheral edema are predominantly a consequence of his underlying cirrhosis. Although a moderately reduced ejection fraction is noted, it is not believed to be a significant factor in his current fluid retention. While his renal function remains stable and he is tolerating intravenous furosemide in the short term, the chronic nature of ascites and LLEE makes prolonged IV furosemide use a risk factor for ALYSSA. Therefore, for safer long-term management, I recommend transitioning to oral diuretics: spironolac tone 100 mg PO daily and furosemide 40 mg PO daily, to be taken concurrently each morning. Furthermore, strict adherence to a low-sodium diet, ideally with consultation from a general road supervisor, is essential. Close monitoring of his renal function is also crucial, especially in the context of transitioning to oral diuretics after initial IV therapy. Discharge can be anticipated in the next few days if clinically stable, to continue management as an outpatient. (2) Ascites: Qualifiers: Ascites type: other type Qualified Code(s): R18.8 - Other ascites Code(s): R18.8 - Other ascites Status: Acute Plan - Suggest d/c IV Lasix and start Spironolactone 100 mg + Lasix 40 mg qam Subjective Date/time seen: 03/18/25 14:20 Interval history: The patient feels better, no shortness of breath, not requiring supplemental oxygen. He underwent his 3rd large volume paracentesis today, extracting 4100 cc of ascitic fluid. Exam Narrative: Alert oriented x3, comfortable. Abdomen: Fluid wave positive, abdominal wall edema. Extremities, 4+ pitting edema pretibial and pedal. Objective Data Vital Signs Vital Signs: Vital Signs - 24 hr 03/17/25 15:38 03/17/25 16:00 03/17/25 16:00 Temperature 98 F Pulse Rate 69 71 Respiratory Rate 22 H Blood Pressure 109/59 L Pulse Oximetry 100 Oxygen Delivery Room Air Fraction of Inspired Oxygen 03/17/25 17:14 03/17/25 18:00 03/17/25 20:00 Temperature 98.4 F Pulse Rate 75 80 72 Respiratory Rate 18 Blood Pressure 115/63 Pulse Oximetry 100 Oxygen Delivery Fraction of Inspired Oxygen 03/17/25 20:00 03/17/25 20:00 03/17/25 22:00 Temperature Pulse Rate 84 82 80 Respiratory Rate 18 Blood Pressure Pulse Oximetry 100 Oxygen Delivery Room Air Fraction of Inspired Oxygen 21 03/18/25 00:00 03/18/25 00:00 03/18/25 00:00 Temperature 97.7 F Pulse Rate 86 78 78 Respiratory Rate 16 18 Blood Pressure 148/78 H Pulse Oximetry 100 100 Oxygen Delivery Room Air Fraction of Inspired Oxygen 21 03/18/25 02:00 03/18/25 04:00 03/18/25 04:00 Temperature Pulse Rate 76 76 76 Respiratory Rate 18 Blood Pressure Pulse Oximetry 100 Oxygen Delivery Room Air Fraction of Inspired Oxygen 21 03/18/25 04:00 03/18/25 05:21 03/18/25 08:00 Temperature 98 F 98.2 F Pulse Rate 96 62 77 Respiratory Rate 16 16 Blood Pressure 113/70 107/54 L Pulse Oximetry 100 96 Oxygen Delivery Fraction of Inspired Oxygen 03/18/25 08:00 03/18/25 08:00 03/18/25 10:00 Temperature Pulse Rate 76 79 78 Respiratory Rate 18 Blood Pressure Pulse Oximetry 100 Oxygen Delivery Room Air Fraction of Inspired Oxygen 21 03/18/25 12:00 03/18/25 12:00 03/18/25 12:00 Temperature 98.1 F Pulse Rate 82 76 89 Respiratory Rate 24 H 18 Blood Pressure 138/75 Pulse Oximetry 90 100 Oxygen Delivery Room Air Fraction of Inspired Oxygen 21 Intake/Output Intake/Output: Intake & Output 03/15/25 03/16/25 03/17/25 03/18/25 23:59 23:59 23:59 23:59 Intake Total 631 357 8282 300 Output Total 5000 [phone] Balance -5016 -612 992 -7704 Meds/Results Medications: Active Medications Generic Name Dose Route Start Last Admin Trade Name Freq PRN Reason Stop Dose Admin Albuterol 1 puff 03/15/25 12:03 Albuterol Sulfate (*Sp) Aerosol 1 Puff INHALATION Q4-6H PRN Shortness Of Breath Or Wheezing Allopurinol 300 mg 03/15/25 13:00 03/18/25 11:07 Allopurinol 300 Mg Tablet PO 300 mg DAILY HERNAN Administration Atorvastatin Calcium 10 mg 03/15/25 13:00 03/18/25 11:08 Atorvastatin 10 Mg Tablet PO 10 mg DAILY HERNAN Administration Carvedilol 3.125 mg 03/15/25 17:00 03/18/25 11:07 Carvedilol 3.125 Mg Tablet PO 3.125 mg BID HERNAN Administration Clopidogrel Bisulfate 75 mg 03/15/25 13:00 03/18/25 11:10 Clopidogrel Bisulfate 75 Mg Tablet PO 75 mg DAILY HERNAN Administration Dextrose 12.5 gm 03/15/25 12:05 Dextrose 50% 25 Gm/50 Ml Syringe IV PUSH PRN PRN Hypoglycemia Protocol Furosemide 40 mg 03/16/25 17:00 03/18/25 11:07 Furosemide Inj 40 Mg/4 Ml Vial IV PUSH 40 mg BID HERNAN Administration Glucagon 1 mg 03/15/25 12:05 Glucagon For Inj 1 Mg Vial IM PRN PRN Hypoglycemia Protocol Glucose 15 gm 03/15/25 12:05 Glucose Oral Gel 15 Gm Of Glucse In 37.5 Gm Tube PO PRN PRN Hypoglycemia Protocol Dextrose 1,000 mls @ 100 mls/hr 03/15/25 12:05 Dextrose 5% 1,000 Ml IVPB PRN PRN Hypoglycemia Protocol Albumin Human 100 mls @ 60 mls/hr 03/18/25 17:00 Albutein IVPB 03/18/25 18:39 ONCE ONE Insulin Aspart 2 - 5 units 03/15/25 17:00 03/18/25 13:30 Insulin Aspart (*Bkc) 100 Units/Ml SUB-Q Not Given TIDWM [facility] Protocol Insulin Glargine 10 units 03/15/25 21:00 03/17/25 21:33 Insulin Glargine (*Bkc) 100 Units/Ml SUB-Q 10 units HS HERNAN Administration Levofloxacin 750 mg 03/15/25 14:45 03/17/25 13:43 Levofloxacin 750 Mg Tablet PO 03/19/25 14:31 750 mg DAILY@1430 HERNAN Administration Nitroglycerin 0.4 mg 03/15/25 12:03 Nitroglycerin Sl 0.4 Mg Tablet SUBLINGUAL PRN PRN Chest Pain Olanzapine 10 mg 03/15/25 21:00 03/17/25 21:33 Olanzapine 5 Mg Tablet PO 10 mg HS HERNAN Administration Oxycodone/Acetaminophen 1 tablet 03/17/25 14:03 03/18/25 11:10 Oxycodone/Acetaminophen (*Crx) 5-325 Mg Tablet PO 1 tablet Q4H PRN Administration Pain Rated 7-10 Perflutren Lipid Microsphere 0 ml 03/15/25 16:17 Perflutren Lipid Microspheres 1.5 Ml Vial Diluted To 10 Ml Total Volume IV PUSH 03/18/25 16:17 ONCE PRN adequate visualization Protocol Radiology Results: ITS Impressions Chest X-Ray 03/16/25 09:34 IMPRESSION: 1. Mild opacities in the left mid and lower lung zone which could represent atelectasis and/or pneumonia. Abdomen Ultrasound 03/16/25 19:51 IMPRESSION: Perihepatic ascites. Paracentesis Ultrasound 03/18/25 10:56 IMPRESSION: 1. Successful ultrasound-guided paracentesis yielding 4100 mL of yellow fluid. Labs Labs: Laboratory Results - last 24 hr 03/17/25 03/17/25 03/18/25 15:44 20:53 09:19 PT 15.9 H INR 1.2 POC Capillary Glucose 143 H 116 H 03/18/25 11:17 PT INR POC Capillary Glucose 119 H
--- NOTE | 2025-03-18 14:25 | P.PNIM_ITS ---
Progress Note: A&P Assessment and Plan (1) Edema of both lower extremities: Code(s): R60.0 - Localized edema <Anjel Samuels - Last Filed: 03/18/25 15:50> Status: Acute <Anjel Samuels, Last Filed: 03/18/25 15:50> (2) Cirrhosis: Qualifiers: Ascites presence: with ascites Hepatic cirrhosis type: unspecified hepatic cirrhosis Qualified Code(s): K74.60 - Unspecified cirrhosis of liver; R18.8 - Other ascites <Anjel Samuels, - Last Filed: 03/18/25 15:50> Code(s): K74.60 - Unspecified cirrhosis of liver <Anjel Samuels, Last Filed: 03/18/25 15:50> Status: Acute <Anjel Samuels, Last Filed: 03/18/25 15:50> (3) Ascites: Qualifiers: Ascites type: other type Qualified Code(s): R18.8 - Other ascites <Anjel Samuels, Last Filed: 03/18/25 15:50> Code(s): R18.8 - Other ascites <Anjel Samuels, Last Filed: 03/18/25 15:50> Status: Acute <Anjel Samuels, Last Filed: 03/18/25 15:50> (4) Pneumonia: Qualifiers: Laterality: unspecified laterality Lung location: unspecified part of lung Pneumonia type: due to unspecified organism Qualified Code(s): J18.9 - Pneumonia, unspecified organism <Anjel Samuels, Last Filed: 03/18/25 15:50> Code(s): J18.9 - Pneumonia, unspecified organism <Anjel Samuels, Last Filed: 03/18/25 15:50> Status: Acute <Anjel Samuels, Last Filed: 03/18/25 15:50> (5) Chronic obstructive pulmonary disease, unspecified: Qualifiers: COPD type: unspecified COPD Qualified Code(s): J44.9 - Chronic obstructive pulmonary disease, unspecified <Anjel Samuels, Last Filed: 03/18/25 15:50> Code(s): J44.9 - Chronic obstructive pulmonary disease, unspecified <Anjel Samuels Last Filed: 03/18/25 15:50> Status: Acute <Anjel Samuels Last Filed: 03/18/25 15:50> (6) Diabetes: Qualifiers: Diabetes mellitus complication status: without complication 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 Diabetes mellitus type: type 2 Qualified Code(s): E11.9 - Type 2 diabetes mellitus without complications; Z79.4 - 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 <Anjel Samuels Last Filed: 03/18/25 15:50> Code(s): E11.9 - Type 2 diabetes mellitus without complications <Anjel Samuels, Last Filed: 03/18/25 15:50> Status: Acute <Anjel Samuels Last Filed: 03/18/25 15:50> (7) Essential (primary) hypertension: Code(s): I10 - Essential (primary) hypertension <Anjel Samuels Last Filed: 03/18/25 15:50> Status: Acute <Anjel Samuels Last Filed: 03/18/25 15:50> (8) GERD (gastroesophageal reflux disease): Qualifiers: Esophagitis presence: esophagitis presence not specified Qualified Code(s): K21.9 - Gastro-esophageal reflux disease without esophagitis <Anjel Samuels Last Filed: 03/18/25 15:50> Code(s): K21.9 - Gastro-esophageal reflux disease without esophagitis <Anjel Samuels Last Filed: 03/18/25 15:50> Status: Acute <Anjel Samuels Last Filed: 03/18/25 15:50> (9) Anemia: Qualifiers: Anemia type: unspecified type Qualified Code(s): D64.9 - Anemia, unspecified <Anjel Samuels, Last Filed: 03/18/25 15:50> Code(s): D64.9 - Anemia, unspecified <Anjel Samuels Last Filed: 03/18/25 15:50> Status: Acute <Anjel W. Samuels, Student - Last Filed: 03/18/25 15:50> (10) Heart failure with preserved ejection fraction: Qualifiers: Heart failure chronicity: unspecified Qualified Code(s): I50.30 - Unspecified diastolic (congestive) heart failure <Anjel Samuels Student - Last Filed: 03/18/25 15:50> Code(s): I50.30 - Unspecified diastolic (congestive) heart failure <Anjel Samuels, Student - Last Filed: 03/18/25 15:50> Status: Acute <Anejl Samuels, Student - Last Filed: 03/18/25 15:50> (11) Acute on chronic heart failure with mildly reduced ejection fraction (HFmrEF, 41-49%): Code(s): I50.23 - Acute on chronic systolic (congestive) heart failure <Anjel EstardaNicole Arvind Student - Last Filed: 03/18/25 15:50> Status: Acute <Anjel Samuels Student - Last Filed: 03/18/25 15:50> (12) Dermatitis associated with incontinence: Code(s): L25.8 - Unspecified contact dermatitis due to other agents; R32 - Unspecified urinary incontinence <Anjel Samuels Student - Last Filed: 03/18/25 15:50> Status: Acute <Anjel Samuels Erin - Last Filed: 03/18/25 15:50> Assessment and Plan: # Edema of lower extremities: - Bilateral lower extremity edema present during previous visit 03/12/25, newly onset at the time. Patient had acute worsening following meal after leaving hospital 03/14 - Cirrhosis vs cardiac cause - see lower plans - Utilize luna wraps and leg elevation for symptom alleviation - Lasix 40 IV BID given to alleviate symptoms 03/16, continue as of 03/18, along with IV Albumin - Symptoms improving, patient agreeable with plan # Cirrhosis/Ascites: - Ascites present since recent hospital stay, starting around the beginning of February - Total of 10 L fluid drained, with 5L 03/13 and 03/15 respectively - Cloudy appearance, though PMN in peritoneal fluid from 03/13 is 10.44, negative for abdominal pain, fever, and leukocytosis - No SBP suspected, continue monitoring for symptoms established with employment law specialist in [place] s/p paracentesis - 03/18 symptoms improving, paracentesis 4.1 L - Ordered alpha fetoprotein (pending), hepatitis ABC panel (all negative), and RUQ ultrasound 03/16 - GI consulted - Cirrhosis- likely KHAN related. Pancytopenia may be multifactorial with cirrhosis as a component. - Continue coreg for variceal history - 03/17: If ok with cardiology, start Aldactone 100 mg daily and increase to 200mg daily if patient stays on lasix 40 BID - Monitor electrolytes and renal fxn closely - 2 gram sodium diet, fluid restriction - RUQ ultrasound perihepatic ascites but no liver mass or lesions - Avoid NSAIDS, LUNA, ARBS to preserve kidney fxn - Transfuse if hgb under 7 - 03/18 : Recommend transition to furosemide 40 mg PO daily + 100 mg PO daily concurrently in the morning. In addition recommend nutrition consultation for adherence to low sodium diet. Additionally recommend renal function monitoring especially in context of IV to PO diuretics transition. Plan to begin 03/19. # Pneumonia: - Treated for septic shock 03/12 through 03/13 with suspected cause of pneumonia - Patient left AMA while on a regimen of ceftriaxone, Flagyl, and vancomycin - CXR clear according to radiology 03/15, but given patients medical history will continue treating pneumonia to complete course with levofloxacin x5 days - CXR 03/16 mild opacities in the left mid and lower lung zone which could represent atelectasis and/or pneumonia - Mild expiratory wheezing, otherwise clear lungs - Continue levofloxacin tx # COPD: - 50 pack years, chronic condition, managed with Q4-6H PRN albuterol for SOB/wheezing at home, continued inpatient - Patient recently quit smoking following hospitalization at [facility] - Symptoms managed per patient # Diabetes: - Hypoglycemia protocol with low dose sliding scale ordered - lantus 10 units hs - AccuCheck ac/hs - 5.6 a1c on 03/12/25 - 119 POC glucose 03/18, continue current management # Hypertension # HFpEF EF 45-50% (echo 03/13/25) Elevated Pro BNP 2780, slightly elevated troponin-trending down (.134 to 0.096 over 03/15) - Vitals stable, but waiting for cardiology recommendation regarding restarting entresto - Lipid panel ordered WNL - BP stable 03/18, 138/75 - restarted coreg - monitor closely - remains in IMU - Cardiology consulted - Acute on chronic systolic heart failure - Continue Plavix, statin, acute on chronic systolic heart failure improving with diuresis - Strict intake and output, daily weights, 2L fluid restriction, and CHF counseling - 03/18 recommend continuing BID IV 40 Lasix # GERD: - History of esophageal varices and GERD - Patient on pantoprazole previously - Started on protonix inpatient # Anemia: - History of >16 baseline Hgb(last seen 08/04/24), since previous stay 03/12 has been around 8 - Stool occult ordered, uncollected as of yet - No signs of acute blood loss, denies blood in stool or urine, stable vital signs, no shortness of breath - Dr. Taras soria with employment law specialist, no concern regarding pancytopenia at this time, will follow - Hemoglobin hovering around 8 since admission, most recent 7.8 on 03/17 # Gout: - Receives allopurinol chronically for gout prevention, continued inpatient # Buttock and ischium dermatitis related to incontinence - Wound care consulted, no s/s of infection, no open wounds. Antifungal barrier cream to protect and treat, patient educated on self care - Continued monitoring of patient symptoms # DVT Prophylaxis: - Mechanical, platelets below 100 (74 03/18) <Anjel Samuels, Student - Last Filed: 03/18/25 15:50> Subjective Date/time seen: 03/18/25 14:25 <Anjel Samuels Student - Last Filed: 03/18/25 15:50> Interval history: CC: BLE edema, ascites HPI: Patient is a 70-year-old gentleman with history of CABG, essential hypertension, type 2 diabetes, tobacco use disorder (52 pack years), gout, cirrhosis, and COPD with complaints of leg swelling. He was admitted to [facility] for pneumonia and discharged with a newly swollen abdomen. Patient was then admitted to [place] [facility] and treated for septic shock 03/12, shock was treated and resolved as of 03/13. Antibiotic regimen beginning 03/12 included ceftriaxone, flagyl, and vancomycin. Paracentesis was performed during this stay, removing 5L. Left AMA 03/14, and within 4 hours his legs had doubled in size. Then presented to ER and admitted. 03/18 Patient was seen and examined. States leg and abdominal swelling much better, crossing legs effectively which he hasn't been able to do since hospital stay began. Paracentesis performed again today for 4.1 L. Patient agreeable with treatment. Denies abdominal pain, weakness, dizziness, blood in stool, hematuria, nausea, vomiting, or new difficulty breathing. Patient will receive albumin x 2 with Lasix. Also seeks home nurse when discharged. <Anjel Samuels, Student - Last Filed: 03/18/25 15:50> CC: BLE edema, ascites HPI: Patient is a 70-year-old gentleman with history of CABG, essential hypertension, type 2 diabetes, tobacco use disorder (52 pack years), gout, cirrhosis, and COPD with complaints of leg swelling. He was admitted to [facility] for pneumonia and discharged with a newly swollen abdomen. Patient was then admitted to [place] [facility] and treated for septic shock 03/12, shock was treated and resolved as of 03/13. Antibiotic regimen beginning 03/12 included ceftriaxone, flagyl, and vancomycin. Paracentesis was performed during this stay, removing 5L. Left AMA 03/14, and within 4 hours his legs had doubled in size. Then presented to ER and admitted. 03/18 Patient was seen and examined. States leg and abdominal swelling much better, crossing legs effectively which he hasn't been able to do since hospital stay began. Paracentesis performed again today for 4.1 L. Patient agreeable with treatment. Denies abdominal pain, weakness, dizziness, blood in stool, hematuria, nausea, vomiting, or new difficulty breathing. Patient will receive albumin x 2 with Lasix. Patient leg edema significantly improved. Discussed with the GI. Will start oral Lasix and spironolactone. <Mannie Grajeda MD - Last Filed: 03/18/25 16:43> Review of Systems Review of Systems: All systems reviewed & are unremarkable except as noted in HPI and below <Anjel Samuels, Student - Last Filed: 03/18/25 15:50> Exam Narrative: General: Pleasant, no acute distress, appears stated age. Eyes: EOMI, pupils equal ENT: No rhinorrhea or epistaxis. Moist mucous membranes. No neck masses, bandaged lesion on right side of neck. Pulmonary: Diffuse mild expiratory wheezing Cardiovascular Heart: S1, S2, normal rhythm, no murmur, rub, or gallop; no thrill or palpable murmurs on palpation. Gastrointestinal: Distended consistent with ascites, normal active bowel sounds. Slight TTP in right upper quadrant. Skin: Warm, dry, no rash Musculoskeletal: Lower extremity pitting edema 3+, superficial 7 by 8 cm wound on anterior leg, red granulation tissue. Neurologic: A&O x3, no focal deficits, strength intact bilaterally. Able to move from chair to bed for exam with relative ease. <Anjel Samuels, Student - Last Filed: 03/18/25 15:50> Objective Data Vital Signs Vital Signs: Vital Signs - 24 hr 03/17/25 15:38 03/17/25 16:00 03/17/25 16:00 Temperature 98 F Pulse Rate 69 71 Respiratory Rate 22 H Blood Pressure 109/59 L Pulse Oximetry 100 Oxygen Delivery Room Air Fraction of Inspired Oxygen 03/17/25 17:14 03/17/25 18:00 03/17/25 20:00 Temperature 98.4 F Pulse Rate 75 80 72 Respiratory Rate 18 Blood Pressure 115/63 Pulse Oximetry 100 Oxygen Delivery Fraction of Inspired Oxygen 03/17/25 20:00 03/17/25 20:00 03/17/25 22:00 Temperature Pulse Rate 84 82 80 Respiratory Rate 18 Blood Pressure Pulse Oximetry 100 Oxygen Delivery Room Air Fraction of Inspired Oxygen 21 03/18/25 00:00 03/18/25 00:00 03/18/25 00:00 Temperature 97.7 F Pulse Rate 86 78 78 Respiratory Rate 16 18 Blood Pressure 148/78 H Pulse Oximetry 100 100 Oxygen Delivery Room Air Fraction of Inspired Oxygen 21 03/18/25 02:00 03/18/25 04:00 03/18/25 04:00 Temperature Pulse Rate 76 76 76 Respiratory Rate 18 Blood Pressure Pulse Oximetry 100 Oxygen Delivery Room Air Fraction of Inspired Oxygen 21 03/18/25 04:00 03/18/25 05:21 03/18/25 08:00 Temperature 98 F 98.2 F Pulse Rate 96 62 77 Respiratory Rate 16 16 Blood Pressure 113/70 107/54 L Pulse Oximetry 100 96 Oxygen Delivery Fraction of Inspired Oxygen 03/18/25 08:00 03/18/25 08:00 03/18/25 10:00 Temperature Pulse Rate 76 79 78 Respiratory Rate 18 Blood Pressure Pulse Oximetry 100 Oxygen Delivery Room Air Fraction of Inspired Oxygen 21 03/18/25 12:00 03/18/25 12:00 03/18/25 12:00 Temperature 98.1 F Pulse Rate 82 76 89 Respiratory Rate 24 H 18 Blood Pressure 138/75 Pulse Oximetry 90 100 Oxygen Delivery Room Air Fraction of Inspired Oxygen 21 <Anjel Samuels, Student - Last Filed: 03/18/25 15:50> Intake/Output Intake/Output: Intake & Output 03/15/25 03/16/25 03/17/25 03/18/25 23:59 23:59 23:59 23:59 Intake Total 124 917 0989 300 Output Total 5000 1226 387 5005 Balance -4596 -567 520 3800 <Ajnel Samuels, Student - Last Filed: 03/18/25 15:50> Meds/Results Medications: Active Medications Generic Name Dose Route Start Last Admin Trade Name Freq PRN Reason Stop Dose Admin Albuterol 1 puff 03/15/25 12:03 Albuterol Sulfate (*Sp) Aerosol 1 Puff INHALATION Q4-6H PRN Shortness Of Breath Or Wheezing Allopurinol 300 mg 03/15/25 13:00 03/18/25 11:07 Allopurinol 300 Mg Tablet PO 300 mg DAILY HERNAN Administration Atorvastatin Calcium 10 mg 03/15/25 13:00 03/18/25 11:08 Atorvastatin 10 Mg Tablet PO 10 mg DAILY HERNAN Administration Carvedilol 3.125 mg 03/15/25 17:00 03/18/25 11:07 Carvedilol 3.125 Mg Tablet PO 3.125 mg BID HERNAN Administration Clopidogrel Bisulfate 75 mg 03/15/25 13:00 03/18/25 11:10 Clopidogrel Bisulfate 75 Mg Tablet PO 75 mg DAILY HERNAN Administration Dextrose 12.5 gm 03/15/25 12:05 Dextrose 50% 25 Gm/50 Ml Syringe IV PUSH PRN PRN Hypoglycemia Protocol Furosemide 40 mg 03/16/25 17:00 03/18/25 11:07 Furosemide Inj 40 Mg/4 Ml Vial IV PUSH 40 mg BID HERNAN Administration Glucagon 1 mg 03/15/25 12:05 Glucagon For Inj 1 Mg Vial IM PRN PRN Hypoglycemia Protocol Glucose 15 gm 03/15/25 12:05 Glucose Oral Gel 15 Gm Of Glucse In 37.5 Gm Tube PO PRN PRN Hypoglycemia Protocol Dextrose 1,000 mls @ 100 mls/hr 03/15/25 12:05 Dextrose 5% 1,000 Ml IVPB PRN PRN Hypoglycemia Protocol Albumin Human 100 mls @ 60 mls/hr 03/18/25 17:00 Albutein IVPB 03/18/25 18:39 ONCE ONE Insulin Aspart 2 - 5 units 03/15/25 17:00 03/18/25 13:30 Insulin Aspart (*Bkc) 100 Units/Ml SUB-Q Not Given TIDWM HERNAN Protocol Insulin Glargine 10 units 03/15/25 21:00 03/17/25 21:33 Insulin Glargine (*Bkc) 100 Units/Ml SUB-Q 10 units HS HERNAN Administration Levofloxacin 750 mg 03/15/25 14:45 03/17/25 13:43 Levofloxacin 750 Mg Tablet PO 03/19/25 14:31 750 mg DAILY@1430 HERNAN Administration Nitroglycerin 0.4 mg 03/15/25 12:03 Nitroglycerin Sl 0.4 Mg Tablet SUBLINGUAL PRN PRN Chest Pain Olanzapine 10 mg 03/15/25 21:00 03/17/25 21:33 Olanzapine 5 Mg Tablet PO 10 mg HS HERNAN Administration Oxycodone/Acetaminophen 1 tablet 03/17/25 14:03 03/18/25 11:10 Oxycodone/Acetaminophen (*Crx) 5-325 Mg Tablet PO 1 tablet Q4H PRN Administration Pain Rated 7-10 Perflutren Lipid Microsphere 0 ml 03/15/25 16:17 Perflutren Lipid Microspheres 1.5 Ml Vial Diluted To 10 Ml Total Volume IV PUSH 03/18/25 16:17 ONCE PRN adequate visualization Protocol <Anjel Samuels, Student - Last Filed: 03/18/25 15:50> Radiology Results: ITS Impressions Chest X-Ray 03/16/25 09:34 IMPRESSION: 1. Mild opacities in the left mid and lower lung zone which could represent atelectasis and/or pneumonia. Abdomen Ultrasound 03/16/25 19:51 IMPRESSION: Perihepatic ascites. Paracentesis Ultrasound 03/18/25 10:56 IMPRESSION: 1. Successful ultrasound-guided paracentesis yielding 4100 mL of yellow fluid. <Anjel Samuels, Student - Last Filed: 03/18/25 15:50> Labs Labs: Laboratory Results - last 24 hr 03/17/25 03/17/25 03/18/25 15:44 20:53 09:19 PT 15.9 H INR 1.2 POC Capillary Glucose 143 H 116 H 03/18/25 11:17 PT INR POC Capillary Glucose 119 H <Anjel Samuels Student - Last Filed: 03/18/25 15:50> Quality VTE Prophylaxis VTE prophylaxis: mechanical ordered <Anjel Samuels Student - Last Filed: 03/18/25 15:50> Hospitalist MIPS Advance Care Plan I have confirmed that the patient's Advanced Care Plan is present, code status is documented, or surrogate decision maker is listed in patient medical record.: Yes <Mannie Grajeda MD - Last Filed: 03/18/25 16:43> Medication Reconciliation I have utilized all available resources to obtain, update and review the patients current medications (includes all prescriptions, OTC, herbals, cannabis, and nutritional supplements).: Yes <Mannie Grajeda MD - Last Filed: 03/18/25 16:43>
[2025-03-18] MEDS: levoFLOXacin 750 MG TABLET PO (16:27)
[2025-03-18 16:39] LABS: Glucose Point of Care 159 mg/dl (65-105)
[2025-03-18] MEDS: OLANZapine 5 MG TABLET 10 MG PO (20:21)
[2025-03-18] MEDS: INSULIN GLARGINE (*BKC) 100 UNITS/ML 10 UNITS SUB-Q (20:21)
[2025-03-18 20:22] LABS: Glucose Point of Care 137 mg/dl (65-105)
[2025-03-19] VITALS (14 sets, daily range): BP systolic 105–142; BP diastolic 61–79; PULSE 64–97; RESP 16–20; TEMP 36.7–36.9; O2SAT 94–100
[2025-03-19] MEDS: oxyCODONE/ACETAMINOPHEN (*CRX) 5-325 MG TABLET 1 TABLET PO ×3 (04:15→20:36)
[2025-03-19 08:12] LABS: Glucose Point of Care 101 mg/dl (65-105)
[2025-03-19 08:58] LABS: Hematocrit 24.5 % (42.0-52.0); Hemoglobin 7.7 g/dL (14.0-18.0); Mean Corpuscular HGB Conc 31.4 g/dl (32-36); Mean Corpuscular Hemoglobin 33.2 pg (26-34); Mean Corpuscular Volume 105.6 fl (80-100); Mean Platelet Volume 11.9 fl (7.4-10.4); Platelet Count Result 79 k/mm3 (150-375); Red Blood Count 2.32 M/mm3 (4.6-6.20); Red Cell Distribution Width 22.1 % (11.5-14.5); White Blood Count 3.3 K/mm3 (4.5-10.0)
[2025-03-19 09:05] LABS: Alanine Aminotransferase 33 U/L (6-50); Albumin Level 3.7 g/dL (3.5-5.1); Alkaline Phosphatase 111 U/L (38-126); Anion Gap 5 mmol/L (4-12); Aspartate Amino Transferase 34 U/L (17-59); Bilirubin,Total 1.3 mg/dL (0.2-1.3); Blood Urea Nitrogen 24 mg/dL (9-20); Calcium 8.5 mg/dL (8.4-10.2); Carbon Dioxide 32 mmol/L (22-30); Chloride 96 mmol/L (98-107); Estimated CRCL calculation 89 ml/min; Estimated Glomerular Filt Rate > 60; Glucose 214 mg/dL (65-110); Potassium 4.2 mmol/L (3.4-5.0); Sodium 133 mmol/L (137-145)
[2025-03-19] MEDS: ATORVASTATIN 10 MG TABLET PO (09:08)
[2025-03-19] MEDS: SPIRONOLACTONE 50 MG TABLET 100 MG PO (09:08)
[2025-03-19] MEDS: carvediloL 3.125 MG TABLET PO ×2 (09:08→17:43)
[2025-03-19] MEDS: allopurinoL 300 MG TABLET PO (09:08)
[2025-03-19] MEDS: CLOPIDOGREL BISULFATE 75 MG TABLET PO (09:08)
[2025-03-19] MEDS: FUROSEMIDE 40 MG TABLET PO (09:09)
[2025-03-19 11:34] LABS: Glucose Point of Care 99 mg/dl (65-105)
--- NOTE | 2025-03-19 12:01 | WPDGIPROGNO ---
Progress Note: A&P Assessment and Plan (1) Ascites: Qualifiers: Ascites type: other type Qualified Code(s): R18.8 - Other ascites Code(s): R18.8 - Other ascites Status: Acute Assessment and Plan: The patient's diuretic regimen was changed to oral spironolactone 100 mg daily and furosemide 40 mg daily, as documented in the previous note. Strict adherence to a low-sodium diet is essential for optimal management, and ongoing monitoring will be provided in our outpatient clinic. Given his underlying cirrhosis, I have a high suspicion that his ascites will become increasingly refractory to medical management, likely necessitating repeated paracentesis procedures. While his current renal function is adequate, IV diuretics should be avoided if he is admitted in the near future for ascites and/or LLEE edema. Despite a relatively low MELD score, he is not considered a candidate for TIPS due to his age (over 70 years) and the presence of heart failure, which represents a formal contraindication to this procedure. (2) Cirrhosis: Qualifiers: Ascites presence: with ascites Hepatic cirrhosis type: unspecified hepatic cirrhosis Qualified Code(s): K74.60 - Unspecified cirrhosis of liver; R18.8 - Other ascites Code(s): K74.60 - Unspecified cirrhosis of liver Status: Acute Plan - Suggest dietitian consultation for a low sodium diet prior to discharge. Subjective Date/time seen: 03/19/25 12:01 Interval history: The patient feels good, tolerated diet well and is not short of breath. Evidently, his lower extremities are still significantly Edematous, but much less than when he was admitted. Exam Narrative: unchanged from yesterday. Objective Data Vital Signs Vital Signs: Vital Signs - 24 hr 03/18/25 14:00 03/18/25 16:00 03/18/25 16:00 Temperature Pulse Rate 78 88 Respiratory Rate Blood Pressure Pulse Oximetry Oxygen Delivery Room Air Fraction of Inspired Oxygen 03/18/25 16:00 03/18/25 18:00 03/18/25 20:00 Temperature 98.2 F Pulse Rate 77 83 84 Respiratory Rate 16 16 Blood Pressure 110/66 Pulse Oximetry 100 100 Oxygen Delivery Room Air Fraction of Inspired Oxygen 21 03/18/25 20:00 03/18/25 20:00 03/18/25 21:49 Temperature 97.8 F Pulse Rate 84 73 82 Respiratory Rate 20 Blood Pressure 122/72 Pulse Oximetry 99 Oxygen Delivery Fraction of Inspired Oxygen 03/19/25 00:00 03/19/25 00:00 03/19/25 00:00 Temperature 98.1 F Pulse Rate 85 97 97 Respiratory Rate 18 18 Blood Pressure 123/79 Pulse Oximetry 100 100 Oxygen Delivery Room Air Fraction of Inspired Oxygen 21 03/19/25 02:00 03/19/25 03:41 03/19/25 03:41 Temperature Pulse Rate 86 82 82 Respiratory Rate 18 Blood Pressure Pulse Oximetry 100 Oxygen Delivery Room Air Fraction of Inspired Oxygen 21 03/19/25 04:00 03/19/25 06:00 03/19/25 08:00 Temperature 98.3 F 98.3 F Pulse Rate 85 82 73 Respiratory Rate 18 18 Blood Pressure 142/75 H 119/62 Pulse Oximetry 97 99 Oxygen Delivery Fraction of Inspired Oxygen 03/19/25 08:00 03/19/25 08:00 03/19/25 09:08 Temperature Pulse Rate 84 80 Respiratory Rate Blood Pressure Pulse Oximetry Oxygen Delivery Room Air Fraction of Inspired Oxygen 03/19/25 10:00 03/19/25 11:58 Temperature 98.5 F Pulse Rate 80 78 Respiratory Rate 16 Blood Pressure 109/61 Pulse Oximetry 100 Oxygen Delivery Fraction of Inspired Oxygen Intake/Output Intake/Output: Intake & Output 03/16/25 03/17/25 03/18/25 03/19/25 23:59 23:59 23:59 23:59 Intake Total 620 1270 1020 940 Output Total 4072 093 2525 800 Balance -680 520 -4080 140 Meds/Results Medications: Active Medications Generic Name Dose Route Start Last Admin Trade Name Freq PRN Reason Stop Dose Admin Albuterol 1 puff 03/15/25 12:03 Albuterol Sulfate (*Sp) Aerosol 1 Puff INHALATION Q4-6H PRN Shortness Of Breath Or Wheezing Allopurinol 300 mg 03/15/25 13:00 03/19/25 09:08 Allopurinol 300 Mg Tablet PO 300 mg DAILY HERNAN Administration Atorvastatin Calcium 10 mg 03/15/25 13:00 03/19/25 09:08 Atorvastatin 10 Mg Tablet PO 10 mg DAILY HERNAN Administration Carvedilol 3.125 mg 03/15/25 17:00 03/19/25 09:08 Carvedilol 3.125 Mg Tablet PO 3.125 mg BID HERNAN Administration Clopidogrel Bisulfate 75 mg 03/15/25 13:00 03/19/25 09:08 Clopidogrel Bisulfate 75 Mg Tablet PO 75 mg DAILY HERNAN Administration Dextrose 12.5 gm 03/15/25 12:05 Dextrose 50% 25 Gm/50 Ml Syringe IV PUSH PRN PRN Hypoglycemia Protocol Furosemide 40 mg 03/19/25 09:00 03/19/25 09:09 Furosemide 40 Mg Tablet PO 40 mg DAILY HERNAN Administration Glucagon 1 mg 03/15/25 12:05 Glucagon For Inj 1 Mg Vial IM PRN PRN Hypoglycemia Protocol Glucose 15 gm 03/15/25 12:05 Glucose Oral Gel 15 Gm Of Glucse In 37.5 Gm Tube PO PRN PRN Hypoglycemia Protocol Dextrose 1,000 mls @ 100 mls/hr 03/15/25 12:05 Dextrose 5% 1,000 Ml IVPB PRN PRN Hypoglycemia Protocol Insulin Aspart 2 - 5 units 03/15/25 17:00 03/19/25 09:08 Insulin Aspart (*Bkc) 100 Units/Ml SUB-Q Not Given TIDWM [facility] Protocol Insulin Glargine 10 units 03/15/25 21:00 03/18/25 20:21 Insulin Glargine (*Bkc) 100 Units/Ml SUB-Q 10 units HS HERNAN Administration Levofloxacin 750 mg 03/15/25 14:45 03/18/25 16:27 Levofloxacin 750 Mg Tablet PO 03/19/25 14:31 750 mg DAILY@1430 HERNAN Administration Nitroglycerin 0.4 mg 03/15/25 12:03 Nitroglycerin Sl 0.4 Mg Tablet SUBLINGUAL PRN PRN Chest Pain Olanzapine 10 mg 03/15/25 21:00 03/18/25 20:21 Olanzapine 5 Mg Tablet PO 10 mg HS HERNAN Administration Oxycodone/Acetaminophen 1 tablet 03/17/25 14:03 03/19/25 04:15 Oxycodone/Acetaminophen (*Crx) 5-325 Mg Tablet PO 1 tablet Q4H PRN Administration Pain Rated 7-10 Spironolactone 100 mg 03/19/25 09:00 03/19/25 09:08 Spironolactone 50 Mg Tablet PO 100 mg QAM HERNAN Administration Radiology Results: ITS Impressions Chest X-Ray 03/16/25 09:34 IMPRESSION: 1. Mild opacities in the left mid and lower lung zone which could represent atelectasis and/or pneumonia. Abdomen Ultrasound 03/16/25 19:51 IMPRESSION: Perihepatic ascites. Paracentesis Ultrasound 03/18/25 10:56 IMPRESSION: 1. Successful ultrasound-guided paracentesis yielding 4100 mL of yellow fluid. Labs Labs: Laboratory Results - last 24 hr 03/18/25 03/18/25 03/19/25 16:33 19:53 07:23 WBC RBC Hgb Hct MCV MCH MCHC RDW Plt Count MPV % Immature Plt Fraction Sodium Potassium Chloride Carbon Dioxide Anion Gap BUN Creatinine Estim Creat Clear Calc Estimated GFR Glucose POC Capillary Glucose 159 H 137 H 101 Calcium Total Bilirubin AST ALT Alkaline Phosphatase Total Protein Albumin 03/19/25 03/19/25 08:24 11:18 WBC 3.3 L RBC 2.32 L Hgb 7.7 L Hct 24.5 L MCV 105.6 H MCH 33.2 MCHC 31.4 L RDW 22.1 H Plt Count 79 L MPV 11.9 H % Immature Plt Fraction 6.0 Sodium 133 L Potassium 4.2 Chloride 96 L Carbon Dioxide 32 H Anion Gap 5 BUN 24 H Creatinine 0.90 Estim Creat Clear Calc 89 Estimated GFR > 60 Glucose 214 H POC Capillary Glucose 99 Calcium 8.5 Total Bilirubin 1.3 AST 34 ALT 33 Alkaline Phosphatase 111 Total Protein 6.0 L Albumin 3.7
--- NOTE | 2025-03-19 14:22 | P.PNIM_ITS ---
Progress Note: A&P Assessment and Plan (1) Edema of both lower extremities: Code(s): R60.0 - Localized edema Status: Acute (2) Cirrhosis: Qualifiers: Ascites presence: with ascites Hepatic cirrhosis type: unspecified hepatic cirrhosis Qualified Code(s): K74.60 - Unspecified cirrhosis of liver; R18.8 - Other ascites Code(s): K74.60 - Unspecified cirrhosis of liver Status: Acute (3) Ascites: Qualifiers: Ascites type: other type Qualified Code(s): R18.8 - Other ascites Code(s): R18.8 - Other ascites Status: Acute (4) Pneumonia: Qualifiers: Laterality: unspecified laterality Lung location: unspecified part of lung Pneumonia type: due to unspecified organism Qualified Code(s): J18.9 - Pneumonia, unspecified organism Code(s): J18.9 - Pneumonia, unspecified organism Status: Acute (5) Chronic obstructive pulmonary disease, unspecified: Qualifiers: COPD type: unspecified COPD Qualified Code(s): J44.9 - Chronic obstructive pulmonary disease, unspecified Code(s): J44.9 - Chronic obstructive pulmonary disease, unspecified Status: Acute (6) Diabetes: Qualifiers: Diabetes mellitus complication status: without complication Diabetes mellitus rn long term care insulin use: with rn long term care use Diabetes mellitus type: type 2 Qualified Code(s): E11.9 - Type 2 diabetes mellitus without complications; Z79.4 - care home (current) use of insulin Code(s): E11.9 - Type 2 diabetes mellitus without complications Status: Acute (7) Essential (primary) hypertension: Code(s): I10 - Essential (primary) hypertension Status: Acute (8) GERD (gastroesophageal reflux disease): Qualifiers: Esophagitis presence: esophagitis presence not specified Qualified Code(s): K21.9 - Gastro-esophageal reflux disease without esophagitis Code(s): K21.9 - Gastro-esophageal reflux disease without esophagitis Status: Acute (9) Anemia: Qualifiers: Anemia type: unspecified type Qualified Code(s): D64.9 - Anemia, unspecified Code(s): D64.9 - Anemia, unspecified Status: Acute (10) Heart failure with preserved ejection fraction: Qualifiers: Heart failure chronicity: unspecified Qualified Code(s): I50.30 - Unspecified diastolic (congestive) heart failure Code(s): I50.30 - Unspecified diastolic (congestive) heart failure Status: Acute (11) Acute on chronic heart failure with mildly reduced ejection fraction (HFmrEF, 41-49%): Code(s): I50.23 - Acute on chronic systolic (congestive) heart failure Status: Acute (12) Dermatitis associated with incontinence: Code(s): L25.8 - Unspecified contact dermatitis due to other agents; R32 - Unspecified urinary incontinence Status: Acute Plan # Edema of lower extremities: - Bilateral lower extremity edema present during previous visit 03/12/25, newly onset at the time. Patient had acute worsening following meal after leaving hospital 03/14 - Cirrhosis vs cardiac cause - see lower plans - Utilize luna wraps and leg elevation for symptom alleviation - Lasix 40 IV BID given to alleviate symptoms 03/16, continue as of 03/18, along with IV Albumin - Symptoms improving, patient agreeable with plan # Cirrhosis/Ascites: - Ascites present since recent hospital stay, starting around the beginning of February - Total of 10 L fluid drained, with 5L 03/13 and 03/15 respectively - Cloudy appearance, though PMN in peritoneal fluid from 03/13 is 10.44, negative for abdominal pain, fever, and leukocytosis - No SBP suspected, continue monitoring for symptoms 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 Pancytopenia may be multifactorial with cirrhosis as a component. - Continue coreg for variceal history - 03/17: If ok with cardiology, start Aldactone 100 mg daily and increase to 200mg daily if patient stays on lasix 40 BID - Monitor electrolytes and renal fxn closely - 2 gram sodium diet, fluid restriction - RUQ ultrasound perihepatic ascites but no liver mass or lesions - Avoid NSAIDS, LUNA, ARBS to preserve kidney fxn - Transfuse if hgb under 7 - 03/18 : Recommend transition to furosemide 40 mg PO daily + 100 mg PO daily concurrently in the morning. In addition recommend nutrition consultation for adherence to low sodium diet. Additionally recommend renal function monitoring especially in context of IV to PO diuretics transition. Plan to begin 03/19. # Pneumonia: - Treated for septic shock 03/12 through 03/13 with suspected cause of pneumonia - Patient left AMA while on a regimen of ceftriaxone, Flagyl, and vancomycin - CXR clear according to radiology 03/15, but given patients medical history will continue treating pneumonia to complete course with levofloxacin x5 days - CXR 03/16 mild opacities in the left mid and lower lung zone which could represent atelectasis and/or pneumonia - Mild expiratory wheezing, otherwise clear lungs - Continue levofloxacin tx # COPD: - 50 pack years, chronic condition, managed with Q4-6H PRN albuterol for SOB/wheezing at home, continued inpatient - Patient recently quit smoking following hospitalization at [facility] - Symptoms managed per patient # Diabetes: - Hypoglycemia protocol with low dose sliding scale ordered - lantus 10 units hs - AccuCheck ac/hs - 5.6 a1c on 03/12/25 - 119 POC glucose 03/18, continue current management # Hypertension # HFpEF EF 45-50% (echo 03/13/25) Elevated Pro BNP 2780, slightly elevated troponin-trending down (.134 to 0.096 over 03/15) - Vitals stable, but waiting for cardiology recommendation regarding restarting entresto - Lipid panel ordered WNL - BP stable 03/18, 138/75 - restarted coreg - monitor closely - remains in IMU - Cardiology consulted - Acute on chronic systolic heart failure - Continue Plavix, statin, acute on chronic systolic heart failure improving with diuresis - Strict intake and output, daily weights, 2L fluid restriction, and CHF counseling - 03/18 recommend continuing BID IV 40 Lasix # GERD: - History of esophageal varices and GERD - Patient on pantoprazole previously - Started on protonix inpatient # Anemia: - History of >16 baseline Hgb(last seen 08/04/24), since previous stay 03/12 has been around 8 - Stool occult ordered, uncollected as of yet - No signs of acute blood loss, denies blood in stool or urine, stable vital signs, no shortness of breath - Dr. Taras soria with gutter installer, no concern regarding pancytopenia at this time, will follow - Hemoglobin hovering around 8 since admission, most recent 7.8 on 03/17 # Gout: - Receives allopurinol chronically for gout prevention, continued inpatient # Buttock and ischium dermatitis related to incontinence - Wound care consulted, no s/s of infection, no open wounds. Antifungal barrier cream to protect and treat, patient educated on self care - Continued monitoring of patient symptoms # DVT Prophylaxis: - Mechanical, platelets below 100 (74 03/18) Subjective Date/time seen: 03/19/25 14:22 Interval history: Switched to oral diuretics and likely to be discharged tomorrow. Review of Systems Review of Systems: A 10 system review of systems was completed on the patient and is negative except for what is stated in the HPI. Nursing and ancillary documentation was reviewed. All systems reviewed & are unremarkable except as noted in HPI and below Constitutional: Constitutional: Denies body ache(s) and Denies excessive sweating Eyes: Eyes: Denies blurry vision ENT: Reports Normal hearing present Cardiovascular: Cardiovascular: Reports pedal edema Respiratory: Respiratory: Denies hemoptysis Gastrointestinal: Gastrointestinal: Denies hematemesis Genitourinary: Genitourinary: Denies flank pain Musculoskeletal: Musculoskeletal: Denies arthralgias Integumentary/Breasts: Skin/Breast: Denies dry skin Neurologic: Reports Normal hearing present, Denies Abnormal speech present and Denies confusion Psychiatric: Psychiatric: Denies confusion Endocrine: Endocrine: Denies excessive sweating Hematologic/Lymphatic: Hematologic/Lymphatic: Denies easy bleeding Allergic/Immunologic: Allergic/Immunologic: Denies GI upset with certain foods Exam Narrative: unchanged from yesterday. Const: General: comfortable, no acute distress, alert and awake; No confusion Orientation/consciousness: patient oriented x3 and No confusion HENMT: Head: normal to inspection Eyes: General: appearance normal, both eyes and all related structures Sclera: sclerae normal Pupils: Equal, round and reactive pupils present Neck: Neck: normal visual inspection and supple Carotids: normal carotid upstroke and no bruits Resp: Effort & Inspection: normal respiratory effort Auscultation: rales bilateral Cardio: Rate: regular rate Rhythm: regular rhythm Heart sounds: S1 normal heart sound present, S2 normal heart sound present and no murmurs GI: Auscultation: normal bowel sounds Skin: General skin exam: normal color Neuro: General: patient oriented x3 and No confusion Cranial nerves: Yes Equal, round and reactive pupils present and Yes Normal hearing present Speech: No Abnormal speech present Sensory Exam: normal sensation Extrem: General: edema and pedal edema Other: Weeping, blistering Psych: Appearance: grossly normal Mental Status: mental status grossly normal Objective Data Vital Signs Vital Signs: Vital Signs - 24 hr 03/18/25 16:00 03/18/25 16:00 03/18/25 16:00 Temperature 98.2 F Pulse Rate 88 77 Respiratory Rate 16 Blood Pressure 110/66 Pulse Oximetry 100 Oxygen Delivery Room Air Fraction of Inspired Oxygen 03/18/25 18:00 03/18/25 20:00 03/18/25 20:00 Temperature Pulse Rate 83 84 84 Respiratory Rate 16 Blood Pressure Pulse Oximetry 100 Oxygen Delivery Room Air Fraction of Inspired Oxygen 21 03/18/25 20:00 03/18/25 21:49 03/19/25 00:00 Temperature 97.8 F 98.1 F Pulse Rate 73 82 85 Respiratory Rate 20 18 Blood Pressure 122/72 123/79 Pulse Oximetry 99 100 Oxygen Delivery Fraction of Inspired Oxygen 03/19/25 00:00 03/19/25 00:00 03/19/25 02:00 Temperature Pulse Rate 97 97 86 Respiratory Rate 18 Blood Pressure Pulse Oximetry 100 Oxygen Delivery Room Air Fraction of Inspired Oxygen 21 03/19/25 03:41 03/19/25 03:41 03/19/25 04:00 Temperature 98.3 F Pulse Rate 82 82 85 Respiratory Rate 18 18 Blood Pressure 142/75 H Pulse Oximetry 100 97 Oxygen Delivery Room Air Fraction of Inspired Oxygen 21 03/19/25 06:00 03/19/25 08:00 03/19/25 08:00 Temperature 98.3 F Pulse Rate 82 73 Respiratory Rate 18 Blood Pressure 119/62 Pulse Oximetry 99 Oxygen Delivery Room Air Fraction of Inspired Oxygen 03/19/25 08:00 03/19/25 09:08 03/19/25 10:00 Temperature Pulse Rate 84 80 80 Respiratory Rate Blood Pressure Pulse Oximetry Oxygen Delivery Fraction of Inspired Oxygen 03/19/25 11:58 03/19/25 12:00 Temperature 98.5 F Pulse Rate 78 65 Respiratory Rate 16 Blood Pressure 109/61 Pulse Oximetry 100 Oxygen Delivery Fraction of Inspired Oxygen Intake/Output Intake/Output: Intake & Output 03/16/25 03/17/25 03/18/25 03/19/25 23:59 23:59 23:59 23:59 Intake Total 620 1270 1020 1180 Output Total 0951 971 4324 800 Balance -680 520 -4080 380 Meds/Results Medications: Active Medications Generic Name Dose Route Start Last Admin Trade Name Freq PRN Reason Stop Dose Admin Albuterol 1 puff 03/15/25 12:03 Albuterol Sulfate (*Sp) Aerosol 1 Puff INHALATION Q4-6H PRN Shortness Of Breath Or Wheezing Allopurinol 300 mg 03/15/25 13:00 03/19/25 09:08 Allopurinol 300 Mg Tablet PO 300 mg DAILY HERNAN Administration Atorvastatin Calcium 10 mg 03/15/25 13:00 03/19/25 09:08 Atorvastatin 10 Mg Tablet PO 10 mg DAILY HERNAN Administration Carvedilol 3.125 mg 03/15/25 17:00 03/19/25 09:08 Carvedilol 3.125 Mg Tablet PO 3.125 mg BID HERNAN Administration Clopidogrel Bisulfate 75 mg 03/15/25 13:00 03/19/25 09:08 Clopidogrel Bisulfate 75 Mg Tablet PO 75 mg DAILY HERNAN Administration Dextrose 12.5 gm 03/15/25 12:05 Dextrose 50% 25 Gm/50 Ml Syringe IV PUSH PRN PRN Hypoglycemia Protocol Furosemide 40 mg 03/19/25 09:00 03/19/25 09:09 Furosemide 40 Mg Tablet PO 40 mg DAILY HERNAN Administration Glucagon 1 mg 03/15/25 12:05 Glucagon For Inj 1 Mg Vial IM PRN PRN Hypoglycemia Protocol Glucose 15 gm 03/15/25 12:05 Glucose Oral Gel 15 Gm Of Glucse In 37.5 Gm Tube PO PRN PRN Hypoglycemia Protocol Dextrose 1,000 mls @ 100 mls/hr 03/15/25 12:05 Dextrose 5% 1,000 Ml IVPB PRN PRN Hypoglycemia Protocol Insulin Aspart 2 - 5 units 03/15/25 17:00 03/19/25 12:06 Insulin Aspart (*Bkc) 100 Units/Ml SUB-Q Not Given TIDWM [facility] Protocol Insulin Glargine 10 units 03/15/25 21:00 03/18/25 20:21 Insulin Glargine (*Bkc) 100 Units/Ml SUB-Q 10 units HS HERNAN Administration Levofloxacin 750 mg 03/15/25 14:45 03/18/25 16:27 Levofloxacin 750 Mg Tablet PO 03/19/25 14:31 750 mg DAILY@1430 HERNAN Administration Nitroglycerin 0.4 mg 03/15/25 12:03 Nitroglycerin Sl 0.4 Mg Tablet SUBLINGUAL PRN PRN Chest Pain Olanzapine 10 mg 03/15/25 21:00 03/18/25 20:21 Olanzapine 5 Mg Tablet PO 10 mg HS HERNAN Administration Oxycodone/Acetaminophen 1 tablet 03/17/25 14:03 03/19/25 04:15 Oxycodone/Acetaminophen (*Crx) 5-325 Mg Tablet PO 1 tablet Q4H PRN Administration Pain Rated 7-10 Spironolactone 100 mg 03/19/25 09:00 03/19/25 09:08 Spironolactone 50 Mg Tablet PO 100 mg QAM HERNAN Administration Radiology Results: ITS Impressions Chest X-Ray 03/16/25 09:34 IMPRESSION: 1. Mild opacities in the left mid and lower lung zone which could represent atelectasis and/or pneumonia. Abdomen Ultrasound 03/16/25 19:51 IMPRESSION: Perihepatic ascites. Paracentesis Ultrasound 03/18/25 10:56 IMPRESSION: 1. Successful ultrasound-guided paracentesis yielding 4100 mL of yellow fluid. Labs Labs: Laboratory Results - last 24 hr 03/18/25 03/18/25 03/19/25 16:33 19:53 07:23 WBC RBC Hgb Hct MCV MCH MCHC RDW Plt Count MPV % Immature Plt Fraction Sodium Potassium Chloride Carbon Dioxide Anion Gap BUN Creatinine Estim Creat Clear Calc Estimated GFR Glucose POC Capillary Glucose 159 H 137 H 101 Calcium Total Bilirubin AST ALT Alkaline Phosphatase Total Protein Albumin 03/19/25 03/19/25 08:24 11:18 WBC 3.3 L RBC 2.32 L Hgb 7.7 L Hct 24.5 L MCV 105.6 H MCH 33.2 MCHC 31.4 L RDW 22.1 H Plt Count 79 L MPV 11.9 H % Immature Plt Fraction 6.0 Sodium 133 L Potassium 4.2 Chloride 96 L Carbon Dioxide 32 H Anion Gap 5 BUN 24 H Creatinine 0.90 Estim Creat Clear Calc 89 Estimated GFR > 60 Glucose 214 H POC Capillary Glucose 99 Calcium 8.5 Total Bilirubin 1.3 AST 34 ALT 33 Alkaline Phosphatase 111 Total Protein 6.0 L Albumin 3.7 Quality VTE Prophylaxis VTE prophylaxis: mechanical ordered Hospitalist MIPS Advance Care Plan I have confirmed that the patient's Advanced Care Plan is present, code status is documented, or surrogate decision maker is listed in patient medical record.: Yes Medication Reconciliation I have utilized all available resources to obtain, update and review the patients current medications (includes all prescriptions, OTC, herbals, cannabis, and nutritional supplements).: Yes
[2025-03-19] MEDS: levoFLOXacin 750 MG TABLET PO (14:29)
[2025-03-19 16:08] LABS: Glucose Point of Care 130 mg/dl (65-105)
[2025-03-19] MEDS: OLANZapine 5 MG TABLET 10 MG PO (20:33)
[2025-03-19] MEDS: INSULIN GLARGINE (*BKC) 100 UNITS/ML 10 UNITS SUB-Q (20:34)
[2025-03-19 20:35] LABS: Glucose Point of Care 184 mg/dl (65-105)
[2025-03-20] VITALS: PULSE 67; PULSE 71
[2025-03-20] MEDS: oxyCODONE/ACETAMINOPHEN (*CRX) 5-325 MG TABLET 1 TABLET PO (03:30)
[2025-03-20 04:00] VITALS: BP 130/77; PULSE 71; PULSE 76; RESP 18; TEMP 36.7; O2SAT 99
[2025-03-20 04:54] LABS: Hematocrit 24.2 % (42.0-52.0); Immature Platelet Fraction Pct 5.5 % (0.9-11.2); Mean Corpuscular HGB Conc 33.1 g/dl (32-36); Mean Corpuscular Hemoglobin 33.8 pg (26-34); Mean Corpuscular Volume 102.1 fl (80-100); Mean Platelet Volume 11.5 fl (7.4-10.4); Platelet Count Result 89 k/mm3 (150-375); Red Blood Count 2.37 M/mm3 (4.6-6.20); Red Cell Distribution Width 21.5 % (11.5-14.5); White Blood Count 3.2 K/mm3 (4.5-10.0)
[2025-03-20 05:00] LABS: Alanine Aminotransferase 33 U/L (6-50); Albumin Level 3.6 g/dL (3.5-5.1); Alkaline Phosphatase 109 U/L (38-126); Anion Gap 6 mmol/L (4-12); Aspartate Amino Transferase 33 U/L (17-59); Bilirubin,Total 0.8 mg/dL (0.2-1.3); Blood Urea Nitrogen 24 mg/dL (9-20); Calcium 8.7 mg/dL (8.4-10.2); Carbon Dioxide 31 mmol/L (22-30); Chloride 96 mmol/L (98-107); Estimated CRCL calculation 93 ml/min; Estimated Glomerular Filt Rate > 60; Glucose 100 mg/dL (65-110); Potassium 4.1 mmol/L (3.4-5.0); Sodium 133 mmol/L (137-145)
--- NOTE | 2025-03-20 06:33 | ECG_ITS ---
Test Date: 2025-03-20 06:43:14 Measurements Intervals [place] Rate: 67 P: 48 AR: 220 QRS: -56 QRSD: 158 T: 119 QT: 435 QTc: 462 Interpretive Statements SINUS RHYTHM WITH FIRST DEGREE AV BLOCK LEFT AXIS DEVIATION LEFT BUNDLE BRANCH BLOCK BASELINE ARTIFACT- I, II, III, AVR, AVL, AVF, V1 ABNORMAL ECG Compared to ECG 03/15/2025 00:55:12 No significant changes Electronically Signed On 03-20-2025 07:56:43 CDT by Jabari Villaseñor D.O.
--- NOTE | 2025-03-20 07:14 | P.DS_ITS ---
DS: Admitting Diagnosis Discharge Date 03/20/2025 Admitting Diagnosis Cirrhosis DS: Discharge Diagnosis Discharge Diagnosis (1) Edema of both lower extremities: Code(s): R60.0 - Localized edema Status: Acute (2) Cirrhosis: Qualifiers: Ascites presence: with ascites Hepatic cirrhosis type: unspecified hepatic cirrhosis Qualified Code(s): K74.60 - Unspecified cirrhosis of liver; R18.8 - Other ascites Code(s): K74.60 - Unspecified cirrhosis of liver Status: Acute (3) Ascites: Qualifiers: Ascites type: other type Qualified Code(s): R18.8 - Other ascites Code(s): R18.8 - Other ascites Status: Acute (4) Pneumonia: Qualifiers: Laterality: unspecified laterality Lung location: unspecified part of lung Pneumonia type: due to unspecified organism Qualified Code(s): J18.9 - Pneumonia, unspecified organism Code(s): J18.9 - Pneumonia, unspecified organism Status: Acute (5) Chronic obstructive pulmonary disease, unspecified: Qualifiers: COPD type: unspecified COPD Qualified Code(s): J44.9 - Chronic obstructive pulmonary disease, unspecified Code(s): J44.9 - Chronic obstructive pulmonary disease, unspecified Status: Acute (6) Diabetes: Qualifiers: Diabetes mellitus complication status: without complication Diabetes mellitus penitentiary insulin use: with penitentiary use Diabetes mellitus type: type 2 Qualified Code(s): E11.9 - Type 2 diabetes mellitus without complications; Z79.4 - salvage determiner (current) use of insulin Code(s): E11.9 - Type 2 diabetes mellitus without complications Status: Acute (7) Essential (primary) hypertension: Code(s): I10 - Essential (primary) hypertension Status: Acute (8) GERD (gastroesophageal reflux disease): Qualifiers: Esophagitis presence: esophagitis presence not specified Qualified Code(s): K21.9 - Gastro-esophageal reflux disease without esophagitis Code(s): K21.9 - Gastro-esophageal reflux disease without esophagitis Status: Acute (9) Anemia: Qualifiers: Anemia type: unspecified type Qualified Code(s): D64.9 - Anemia, unspecified Code(s): D64.9 - Anemia, unspecified Status: Acute (10) Heart failure with preserved ejection fraction: Qualifiers: Heart failure chronicity: unspecified Qualified Code(s): I50.30 - Unspecified diastolic (congestive) heart failure Code(s): I50.30 - Unspecified diastolic (congestive) heart failure Status: Acute (11) Acute on chronic heart failure with mildly reduced ejection fraction (HFmrEF, 41-49%): Code(s): I50.23 - Acute on chronic systolic (congestive) heart failure Status: Acute (12) Dermatitis associated with incontinence: Code(s): L25.8 - Unspecified contact dermatitis due to other agents; R32 - Unspecified urinary incontinence Status: Acute Plan # DVT Prophylaxis: - Mechanical, platelets below 100 (74 03/18) DS: Summary Hospital Course Hospital Course: 70-year-old gentleman with history of CABG, essential hypertension, type 2 diabetes, tobacco use disorder, gout, cirrhosis, and COPD with complaints of leg swelling. Patient was previously admitted to [facility] following a fall where he coughed up blood. He was admitted for pneumonia and discharged with a newly swollen abdomen that wasn't directly addressed. Patient then shortly presented to [place] [facility] on 03/12 for generalized weakness and was admitted to critical care for septic shock with generalized weakness, nausea, and vomiting. Antibiotic regimen beginning 03/12 included ceftriaxone, flagyl, and vancomycin. Shock was treated and resolved as of 03/13. Paracentesis was performed during this stay, removing 5L. Left AMA 03/14, and within 4 hours his legs had doubled in size. He was laying down at this time and had trouble getting out of bed due to the weight in his legs. He noted that the bottom of his feet have been weeping. He proceeded to call for an ambulance. Upon admission, he also had notable ascites that was to be removed via paracentesis. Patients main concern is rapidly accumulating fluid in his legs, and he wants to maintain independence by being discharged home. Denies any fever, chills, weight loss, fatigue, dizziness, chest pain, abdominal pain, denies blood in stool, hematuria, and has been having regular bowel movements. I assumed care on # Edema of lower extremities: - Bilateral lower extremity edema present during previous visit 03/12/25, newly onset at the time. Patient had acute worsening following meal after leaving hospital 03/14 - Cirrhosis vs cardiac cause - see lower plans - Utilize luna wraps and leg elevation for symptom alleviation -status post Lasix 40 IV BID given to alleviate symptoms 03/16, continue as of 03/18, along with IV Albumin -patient will be discharged with Lasix 40 mg and spironolactone 100 mg p.o. q.d. # Cirrhosis/Ascites: - Ascites present since recent hospital stay, starting around the beginning of February - Total of 10 L fluid drained, with 5L 03/13 and 03/15 respectively - Cloudy appearance, though PMN in peritoneal fluid from 03/13 is 10.44, negative for abdominal pain, fever, and leukocytosis - No SBP suspected, continue monitoring for symptoms established with field technician in [facility] s/p paracentesis - 03/18 symptoms improving, paracentesis 4.1 L - Ordered alpha fetoprotein (pending), hepatitis ABC panel (all negative), and RUQ ultrasound 03/16 - GI consulted - Cirrhosis- likely KHAN related. Pancytopenia may be multifactorial with cirrhosis as a component. - Continue coreg for variceal history - 03/17: If ok with cardiology, start Aldactone 100 mg daily and increase to 200mg daily if patient stays on lasix 40 BID - Monitor electrolytes and renal fxn closely - 2 gram sodium diet, fluid restriction - RUQ ultrasound perihepatic ascites but no liver mass or lesions - Avoid NSAIDS, LUNA, ARBS to preserve kidney fxn - Transfuse if hgb under 7 - 03/19 : Transitioned to furosemide 40 mg PO daily + 100 mg PO daily in the morning. In addition recommend nutrition consultation for adherence to low sodium diet. Additionally recommend renal function monitoring especially in context of IV to PO diuretics transition. # Pneumonia: - Treated for septic shock 03/12 through 03/13 with suspected cause of pneumonia - Patient left AMA while on a regimen of ceftriaxone, Flagyl, and vancomycin - CXR clear according to radiology 03/15, but given patients medical history will continue treating pneumonia to complete course with levofloxacin x5 days - CXR 03/16 mild opacities in the left mid and lower lung zone which could represent atelectasis and/or pneumonia - Mild expiratory wheezing, otherwise clear lungs -completed levofloxacin tx # COPD: - 50 pack years, chronic condition, managed with Q4-6H PRN albuterol for SOB/wheezing at home, continued inpatient - Patient recently quit smoking following hospitalization at [facility] -outpatient follow-up with pulmonology # Diabetes: - Hypoglycemia protocol with low dose sliding scale ordered - lantus 10 units hs - AccuCheck ac/hs - 5.6 a1c on 03/12/25 - 119 POC glucose 03/18, continue current management # Hypertension # HFpEF EF 45-50% (echo 03/13/25) Elevated Pro BNP 2780, slightly elevated troponin-trending down (.134 to 0.096 over 03/15) - Vitals stable, but waiting for cardiology recommendation regarding restarting entresto - Lipid panel ordered WNL - BP stable 03/18, 138/75 - restarted coreg - monitor closely - remains in IMU - Cardiology consulted - Acute on chronic systolic heart failure - Continue Plavix, statin, acute on chronic systolic heart failure improving with diuresis - Strict intake and output, daily weights, 2L fluid restriction, and CHF counseling - 03/18 recommend continuing BID IV 40 Lasix # GERD: - History of esophageal varices and GERD - Patient on pantoprazole previously - Started on protonix inpatient # Anemia: - History of >16 baseline Hgb(last seen 08/04/24), since previous stay 03/12 has been around 8 - Stool occult ordered, uncollected as of yet - No signs of acute blood loss, denies blood in stool or urine, stable vital signs, no shortness of breath - Discussed with Oncologist, no concern regarding pancytopenia at this time, will follow with - Hemoglobin hovering around 8 since admission # Gout: - Receives allopurinol chronically for gout prevention, continued inpatient # Buttock and ischium dermatitis related to incontinence - Wound care consulted, no s/s of infection, no open wounds. Antifungal barrier cream to protect and treat, patient educated on self care - Continued monitoring of patient symptoms Status at Discharge Cognitive/behavioral status at discharge: Stable Time Spent with Patient Time attestation: Total time spent providing and/or coordinating discharge services: 45 minutes Exam Narrative: unchanged from yesterday. Const: General: comfortable, no acute distress, alert and awake; No confusion Orientation/consciousness: patient oriented x3 and No confusion HENMT: Head: normal to inspection Eyes: General: appearance normal, both eyes and all related structures Sclera: sclerae normal Pupils: Equal, round and reactive pupils present Neck: Neck: normal visual inspection and supple Carotids: normal carotid upstroke and no bruits Resp: Effort & Inspection: normal respiratory effort Auscultation: rales bilateral Cardio: Rate: regular rate Rhythm: regular rhythm Heart sounds: S1 normal heart sound present, S2 normal heart sound present and no murmurs GI: Auscultation: normal bowel sounds Skin: General skin exam: normal color Neuro: General: patient oriented x3 and No confusion Cranial nerves: Yes Equal, round and reactive pupils present and Yes Normal hearing present Speech: No Abnormal speech present Sensory Exam: normal sensation Extrem: General: edema and pedal edema Other: Weeping, blistering Psych: Appearance: grossly normal Mental Status: mental status grossly normal DS: Data Data Completed and Pending Labs on day of discharge: Labs from last 24 hours 03/20/25 03/19/25 03/19/25 04:31 20:23 16:06 WBC 3.2 L RBC 2.37 L Hgb 8.0 L Hct 24.2 L MCV 102.1 H MCH 33.8 MCHC 33.1 RDW 21.5 H Plt Count 89 L MPV 11.5 H % Immature Plt Fraction 5.5 Sodium 133 L Potassium 4.1 Chloride 96 L Carbon Dioxide 31 H Anion Gap 6 BUN 24 H Creatinine 0.86 Estim Creat Clear Calc 93 Estimated GFR > 60 Glucose 100 POC Capillary Glucose 184 H 130 H Calcium 8.7 Total Bilirubin 0.8 AST 33 ALT 33 Alkaline Phosphatase 109 Total Protein 6.0 L Albumin 3.6 03/19/25 03/19/25 03/19/25 11:18 08:24 07:23 WBC 3.3 L RBC 2.32 L Hgb 7.7 L Hct 24.5 L MCV 105.6 H MCH 33.2 MCHC 31.4 L RDW 22.1 H Plt Count 79 L MPV 11.9 H % Immature Plt Fraction 6.0 Sodium 133 L Potassium 4.2 Chloride 96 L Carbon Dioxide 32 H Anion Gap 5 BUN 24 H Creatinine 0.90 Estim Creat Clear Calc 89 Estimated GFR > 60 Glucose 214 H POC Capillary Glucose 99 101 Calcium 8.5 Total Bilirubin 1.3 AST 34 ALT 33 Alkaline Phosphatase 111 Total Protein 6.0 L Albumin 3.7 Imaging Radiologist's impression: ITS Impressions Chest X-Ray 03/15/25 05:24 Impression: Clear lungs. Paracentesis Ultrasound 03/15/25 10:33 IMPRESSION: 1. Successful ultrasound-guided paracentesis yielding 5000 mL of pale cloudy yellow fluid. Chest X-Ray 03/16/25 09:34 IMPRESSION: 1. Mild opacities in the left mid and lower lung zone which could represent atelectasis and/or pneumonia. Abdomen Ultrasound 03/16/25 19:51 IMPRESSION: Perihepatic ascites. Paracentesis Ultrasound 03/18/25 10:56 IMPRESSION: 1. Successful ultrasound-guided paracentesis yielding 4100 mL of yellow fluid. Discharge Plan Discharge Attending physician on discharge: Mannie Grajeda Consulting providers: Yumi Muller; Will Lewis Discharging Clinician: Mannie Grajeda Patient Disposition: Home with Home Health Service Activity: as tolerated Diet: heart healthy and low sodium Discharge Instructions: Per Care Coordination, Pt. to discharge with [facility] for PT/OT/Intermediate Services. Agency will call to arrange initial visit. Patient started on Lasix 40mg PO QD and Spironolactone 100 mg PO QD Please measure your blood pressure and if Systolic BP less than 110 consider taking half a tablet of Entresto. Please follow up with your Landscape Crew Leader for further continuity of care. Please follow up with your Cardiology and PCP within a week upon discharge. Recommend low salt diet,out of bed and elevate your leg when sitting. If any blood in the stool or bloody vomiting or confusion please seek immediate medical care. Patient Instructions: Antibiotic Form, Clopidogrel (By mouth), Heart Failure (GEN), Cirrhosis of the Liver (GEN), Ascites (GEN) Patient Language: French Stand Alone Forms: General Discharge Information Follow-up/Referrals: Prem Yang MD [Physician] - Giuliano Isbell MD [Primary Care Provider] - Will Lewis MD [Physician] - Discharge Medications: New furosemide 40 mg Tablet 40 mg PO DAILY Qty: 30 0RF spironolactone [Aldactone] 50 mg Tablet 100 mg PO QAM Qty: 30 0RF Continued Humalog Mix 75-25(U-100)Insuln 100 unit/mL (75-25) suspension 40 unit subcut BID atorvastatin 10 mg tablet 10 mg PO DAILY clopidogrel 75 mg tablet 75 mg PO DAILY carvedilol 6.25 mg tablet 3.125 mg PO BID nitroglycerin 0.4 mg tablet, sublingual 0.4 mg sublingual PRN PRN (Reason: Chest Pain) Rx Instructions: NOT TO EXCEED 3 TABS albuterol sulfate 90 mcg/actuation HFA aerosol inhaler 1 puff INHALATION Q4-6H PRN (Reason: Shortness Of Breath Or Wheezing) Entresto 24-26 mg tablet 1 tablet PO BID olanzapine 10 mg tablet 10 mg PO HS allopurinol 300 mg tablet 300 mg PO DAILY pantoprazole 40 mg tablet,delayed release (DR/EC) 40 mg PO Q12H hydrocodone-acetaminophen 10-325 mg tablet 10 - 325 tablet PO BID PRN (Reason: pain) Discontinued furosemide 20 mg tablet 20 mg PO Q12H Date of admission: 03/16/25 09:52 Primary Care Provider: Giuliano Isbell Admitting Provider: Enma Pardo Attending physician on admission: Enma Pardo Condition: Stable
[2025-03-20 07:30] VITALS: BP 110/57; PULSE 81; RESP 16; TEMP 36.6; O2SAT 97
--- NOTE | 2025-03-20 07:31 | PCWOUND ---
WOCN NOTE Received referral to assess legs for blistering and weeping. Patient has previously been assessed and patient has wound care instructions.
[2025-03-20 07:48] LABS: Alpha Fetoprotein Tumor Marker 3.9 ng/mL (<6.1)
[2025-03-20 07:54] LABS: Glucose Point of Care 194 mg/dl (65-105)
[2025-03-20 08:00] VITALS: PULSE 96
[2025-03-20] MEDS: CLOPIDOGREL BISULFATE 75 MG TABLET PO (08:26)
[2025-03-20] MEDS: FUROSEMIDE 40 MG TABLET PO (08:26)
[2025-03-20] MEDS: SPIRONOLACTONE 50 MG TABLET 100 MG PO (08:26)
[2025-03-20 08:27] VITALS: PULSE 78
[2025-03-20] MEDS: allopurinoL 300 MG TABLET PO (08:27)
[2025-03-20] MEDS: ATORVASTATIN 10 MG TABLET PO (08:27)
[2025-03-20] MEDS: carvediloL 3.125 MG TABLET PO (08:27)
--- NOTE | 2025-03-20 12:21 | PC.NURSE ---
IV's removed. Education and discharge instructions/medications reviewed with the patient. PT wheeled to front entrance to await cab per patient request.
== END 2025-03-20 12:18 | disposition home health service (06) | DRG 947 ==
LOC: ANHED 02:21 → ANHIMU 03:03
PROVIDERS: Nurse Practitioner; Admitting Provider General Practice; Emergency Provider Emergency Medicine; PCP Emergency Medicine; Visit Provider General Practice
DX: R18.8 Other ascites (principal); I50.23 Acute on chronic systolic (congestive) heart failure; J18.9 Pneumonia, unspecified organism; J44.0 Chronic obstructive pulmonary disease with (acute) lower respiratory infection; D61.818 Other pancytopenia; K74.60 Unspecified cirrhosis of liver; D64.9 Anemia, unspecified; E11.9 Type 2 diabetes mellitus without complications; F17.210 Nicotine dependence, cigarettes, uncomplicated; I11.0 Hypertensive heart disease with heart failure; I25.5 Ischemic cardiomyopathy; K75.81 Nonalcoholic steatohepatitis (NASH); K21.9 Gastro-esophageal reflux disease without esophagitis; L30.9 Dermatitis, unspecified; M10.9 Gout, unspecified; R32 Unspecified urinary incontinence; Z79.4 Long term (current) use of insulin; Z79.02 Long term (current) use of antithrombotics/antiplatelets; Z95.1 Presence of aortocoronary bypass graft
CPT/HCPCS: 36415; 49083; 71045; 76705; 80048; 80053; 80061; 80074; 82105; 82140; 82948; 83036; 83605; 83735; 83880; 84484; 85025; 85027; 85055; 85610; 85730; 93005; 96374; 96375; 97161; 97165; 99212; 99285; A9270; G0378; G0463; J1815; J1938; P9047

== ENCOUNTER 2025-07-21 15:08 | Outpatient (CLI) | payer MEDICARE, SELFPAY ==
--- OUTSIDE RECORDS SUMMARY | 2014-02-02 10:45 | XMS_ITS | Continuity of Care Document ---
Author Organization [facility] Address [address] [place] [address] Phone Care Team Providers Care Supervisor Reactor Fueling Name Role Phone Giuliano Isbell MD Unavailable Unavailable Advance Directives Directive Yes / No Effective Date File Name No Information Encounters Encounter Description Practice Location Reason(s) For Visit Diagnoses Date Provider Providers Copied on Encounter [facility], [address] [place], [place], [id number], [place] tel:[phone] [facility] No Information Sukhi Nobles. [address] [facility] [place], [place], [address], [place]. tel:[phone] Family History Family Member Type Diagnosis Age At Onset No Information Payers Payer name Insurance type Covered democrat ID Authoriza tion(s) No Information Social History [...]
--- OUTSIDE RECORDS SUMMARY | 2015-03-16 04:10 | XMS_ITS | Continuity of Care Document ---
Author Organization [facility] Address [address] [place] [address] Phone Care Team Providers Care Signal Intelligence Analyst Name Role Phone Sami Flores MD Unavailable Unava ilable Medications Medication Instructions Dosage Effective Dates (start - stop) Status Comments fenofibrate 160 mg tablet take 1 tablet by oral route every day 160 MG - Active [place] 5 mg-325 mg tablet take 1-2 tablet [...] Diagnoses Date Provider Providers Copied on Encounter [facility], [address], [place], [place], [address] , tel: [phone] [facility] [place] No Information 5 Sandra Agudelo. [address], [address], [place], [place], [address] , [place]. tel: [phone] [facility], [address], [place], [place], [address] , tel: [phone] [facility] [place] Coronary artery disease, occlusiveAortocoron brandi bypass statusOld [place] (myocardial infarction)Pain, kneeHypertension, benignHyperlipidemi aChronic painSpecial screening, prostate cancer 4 Sandra Agudelo. [address], [address], [place], [place], [address] , . tel: [phone] Referring Provider: Sami Flores, [address], [place], [address] . tel:[phone] [facility], [address], [place], [place], [address] , [place] tel: [phone] [facility] [place] No Information 4 Sandra Agudelo. [address], [address], [place], [place], [address] , [place]. tel: [phone] Family History Family Member Type Diagnosis Age At Onset Father Problem (finding) hypertension Father Problem (finding) Eczema Problem (finding) Family history of alzhe gage's disease Immunizations Vaccine Date Status Comments Influenza, injectable, quadrivalent, preservative free, 3 yrs or older administered Source: New Immuniz ation Record Payers Payer name Insurance type Covered alliance party ID Authoriza tion(s) HUMANA MDCR PPO [place] [id number] HUMANA MDCR PPO [place] [id number] Social History Type Description Quantity Date Captured [...]
--- OUTSIDE RECORDS SUMMARY | 2025-07-19 10:07 | XMS_ITS | Continuity of Care Document ---
Author Organization [facility] Address [address] [place] [address] [place] [address] Phone Care Team Providers [employer] Name Role Phone Giuliano Isbell MD Unavailable Unavailable Allergies, Adverse Reactions, Alerts Substance Reaction Status Criticality No Known Allergies Active No Inform ation Medications Medication Instructions Dosage Effective Dates (start - stop) Status Comments lidocaine 5 % topical patch apply 1 patch by transdermal route every day (May wear up to 12hours.) 1.00 patch - Active hydrocodone 10 mg-acetaminophen 325 mg tablet take 1 by Oral route 3 times every day as needed 1 - Active PRN for pain, avoid driving or operate machines sildenafil 50 mg tablet take 1 tablet by oral route every day as directe as needed 50 MG - Active take one orally about one hour before activity, max 1/24 hours Bactrim DS 800 mg-160 mg tablet take 1 tablet by oral route every 12 hours 1.00 tablet - Active Lasix 20 mg tablet take 1 tablet by oral route every day 20 MG - Active spironolactone 100 mg tablet take 1 tablet by oral route every day 100 MG - Active Coreg 3.125 mg tablet take 1 tablet by oral route 2 times every day with food 3.125 MG - Active Humalog Mix 75-25 KwikPen U-100 insulin 100 unit/mL subcutaneous pen inject by subcutaneous route per prescriber's instructions. Insulin dosing requires individualization. 0.00 - Active 40 units SC BID after breakfast and dinner, please disp two [...] 2 inhalations via handihaler 0.00 - Active Entresto 24 mg-26 mg tablet take 1 tablet by oral route 2 times every day 1.00 tablet - Active Plavix 75 mg tablet take 1 tablet by oral route every day 75 MG - Active Lipitor 80 mg tablet take 1 tablet by oral route every day 80 MG - Active Procedures Procedure Date OFFICE/OUTPATIENT VISIT, EST OFFICE/OUTPATIENT VISIT, EST OFFICE/OUTPATIENT VISIT, EST OFFICE/OUTPATIENT VISIT, EST OFFICE/OUTPATIENT VISIT, EST OFFICE/OUTPATIENT VISIT, EST OFFICE/OUTPATIENT VISIT, EST PREV VISIT, EST, 65 & OVER OFFICE/OUTPATIENT [...] Diagnoses Date Provider Providers Copied on Encounter OFFICE/OUTPA TIENT VISIT, [facility], [address], [place], [address], tel:[phone] [facility] pain (chief complaint) skin (chief complaint) liver cirrhosis1 (chief complaint) ED (chief complaint) Chronic pain syndromeMale erectile dysfunction, unspecifiedOther cirrhosis of liverPneumoniaCellu litis of buttock 5 Sukhi Chamberlain [address] [place], [address] , [place]. tel:[phone] OFFICE/OUTPA TIENT VISIT, [facility], [address], [address], tel:[phone] [facility] back pain1 (chief complaint) CHF (chief complaint) CHF1 (chief complaint) DM (chief complaint) ED (chief complaint) Chronic pain syndromeIschemic cardiomyopathyMale erectile dysfunction, unspecifiedType 2 diabetes mellitus with diabetic nephropathyOther cirrhosis of liver 5 Sukhi Chamberlain [address], [address] , [place]. tel:[phone] OFFICE/OUTPA TIENT VISIT, [facility], [address], [address], tel:[phone] [facility] pain (chief complaint) ED (chief complaint) CHF1 (chief complaint) ascites1 (chief complaint) Chronic pain syndromeOther cirrhosis of liverMale erectile dysfunction, unspecifiedIschemic cardiomyopathy 5 Sukhi Chamberlain [address], [place], [place], [address] , [place]. [phone] OFFICE/OUTPA TIENT VISIT, [facility], [address], [place], [place], [address], [place] [phone] [facility] pain (chief complaint) ascites1 (chief complaint) wound1 (chief complaint) Cellulitis of right legChronic pain syndromeOther cirrhosis of liver 5 Sukhi Chamberlain [address], [place], [place], [address] , [place]. [phone] OFFICE/OUTPA TIENT VISIT, [facility], [address], [place], [place], [address], [place] tel:[phone] [facility] skin1 (chief complaint) Cellulitis of right leg 5 Sukhi Chamberlain [address], [place], [place], [address] , [place]. [phone] OFFICE/OUTPA TIENT VISIT, [facility], [address], [place], [place], [address], [place] tel:[phone] [facility] pain (chief complaint) ED (chief complaint) cirrhosis1 (chief complaint) pneumonia1 (chief complaint) anemia1 (chief complaint) Other ascitesChronic pain syndromeMale erectile dysfunction, unspecifiedPneumoni aAnemiaDiastolic cardiac failure Feb- 5 Sukhi Chamberlain [address], [place], [place], [address] , [place]. tel:[phone] OFFICE/OUTPA TIENT VISIT, [facility], [address], [place], [place], [address], [place] tel:[phone] [facility] sick (chief complaint) Severe sepsis with septic shockOther ascitesHypotension Feb- 5 Sukhi Nobles. [address], [place], [place], [address] , [place]. tel:[phone] PREV VISIT, EST, 65 & OVER [facility], [address], [place], [place], [address], [place] tel:[phone] [facility] physical (chief complaint) Encounter for general adult medical examination without abnormal findings 5 Sukhi Nobles. [address], [place], [place], [address] , [place]. tel:[phone] OFFICE/OUTPA TIENT VISIT, [facility], [address], [place], [place], [address], [place] tel:[phone] [facility] pain (chief complaint) ED (chief complaint) Chronic pain syndromeMale erectile dysfunction, unspecified 5 Sukhi Nobles. [address], [place], [place], [address] , [place]. tel:[phone] OFFICE/OUTPA TIENT VISIT, [facility], [address], [place], [place], [address], [place] tel:[phone] [facility] pain (chief complaint) abscess1 (chief complaint) tobacco1 (chief complaint) liver cirrhosis1 (chief complaint) Chronic pain syndromeNonalcoholi c steatohepatitis (KHAN)Centrilobular emphysemaCellulitis of groin 5 Sukhi Nobles. [address], [place], [place], [address] , [place]. tel:[phone] OFFICE/OUTPA TIENT VISIT, [facility], [address], [place], [place], [address], [place] tel:[phone] [facility] carpal tunnel1 (chief complaint) pain (chief complaint) liver1 (chief complaint) Chronic pain syndromeAlcoholic hepatic cirrhosis w/o ascitesCarpal tunnel syndrome, bilateral upper limbsTobacco use 4 Sukhi Nobles. [address], [place], [place], [address] , [place]. tel:[phone] OFFICE/OUTPA TIENT VISIT, [facility], [address], [place], [place], [address], [place] tel:[phone] [facility] pain (chief complaint) Chronic pain syndrome 4 Isbell Giuliano. [address], [place], [place], [address] , [place]. tel:[phone] OFFICE/OUTPA TIENT VISIT, [facility], [address], [place], [place], [address], [place] tel:[phone] [facility] abscess1 (chief complaint) Cellulitis of groin 4 Isbell Giuliano. [address], [place], [place], [address] , [place]. tel:[phone] OFFICE/OUTPA TIENT VISIT, [facility], [address], [place], [place], [address], [place] tel:[phone] [facility] pain (chief complaint) Chronic pain syndrome 4 Isbell Giuliano. [address], [place], [place], [address] , [place]. tel:[phone] OFFICE/OUTPA TIENT VISIT, [facility], [address], [place], [place], [address], [place] tel:[phone] [facility] pain (chief complaint) liver1 (chief complaint) platelet1 (chief complaint) HLP (chief complaint) Nonalcoholic steatohepatitis (KHAN)Chronic pain syndromeThrombocyto peniaMixed hyperlipidemia 4 Isbell Giuliano. [address], [place], [place], [address] , [place]. tel:[phone] OFFICE/OUTPA TIENT VISIT, [facility], [address], [place], [place], [address], [place] tel:[phone] [facility] cough1 (chief complaint) COPD1 (chief complaint) pain (chief complaint) cirrhosis1 (chief complaint) Chronic pain syndromeCentrilobul ar emphysemaNonalcohol ic steatohepatitis (KHAN)Acute bronchitis 4 Sukhi Nobles. [address], [place], [place], [address] , [place]. tel:[phone] OFFICE/OUTPA TIENT VISIT, [facility], [address], [place], [place], [address], [place] tel:[phone] [facility] pain (chief complaint) DM (chief complaint) carpal tunnel1 (chief complaint) CAD (chief complaint) Chronic pain syndromeType 2 diabetes mellitus with diabetic nephropathyCAD of [place] coronary artery without angina pectorisCarpal tunnel syndrome, bilateral upper limbs 4 Sukhi Nobles. [address], [place], [place], [address] , [place]. tel:[phone] OFFICE/OUTPA TIENT VISIT, [facility], [address], [place], [place], [address], [place] tel:[phone] [facility] pain (chief complaint) Chronic pain syndrome 4 Sukhi Nobles. [address], [place], [place], [address] , [place]. tel:[phone] OFFICE/OUTPA TIENT VISIT, [facility], [address], [place], [place], [address], [place] tel:[phone] [facility] DM (chief complaint) pain (chief complaint) Type 2 diabetes mellitus with diabetic nephropathyChronic pain syndrome 4 Isbell Giuliano. [address], [place], [place], [address] , [place]. tel:[phone] OFFICE/OUTPA TIENT VISIT, [facility], [address], [place], [place], [address], [place] tel:[phone] [facility] shoulder pain1 (chief complaint) Pain in left shoulder 4 Sukhi Nobles. [address], [place], [place], [address] , [place]. tel:[phone] OFFICE/OUTPA TIENT VISIT, [facility], [address], [place], [place], [address], [place] tel:[phone] [facility] DM (chief complaint) pain (chief complaint) Type 2 diabetes mellitus with diabetic nephropathyChronic pain syndrome March-0 2 4 Sukhi Nobles. [address], [place], [place], [address] , [place]. [phone] OFFICE/OUTPA TIENT VISIT, [facility], [address], [place], [place], [address], [place] tel:[phone] [facility] DM (chief complaint) Type 2 diabetes mellitus with diabetic nephropathy Feb-0 4 Sukhi Nobles. [address], [place], [place], [address] , [place]. tel:[phone] OFFICE/OUTPA TIENT VISIT, [facility], [address], [place], [place], [address], [place] tel:[phone] [facility] absess1 (chief complaint) pain (chief complaint) Cellulitis of buttockChronic pain syndrome Feb-0 4 Sukhi Nobles. [address], [place], [place], [address] , [place]. tel: [phone] OFFICE/OUTPA TIENT VISIT, [facility], [address], [place], [place], [address], [place] tel:[phone] [facility] colon polyp1 (chief complaint) pain1 (chief complaint) Polyp of colonChronic pain syndrome Jan-0 4 Sukhi Giuliano. [address], [place], [place], [address] , [place]. tel:[phone] OFFICE/OUTPA TIENT VISIT, [facility], [address], [place], [place], [address], [place] tel:[phone] [facility] skin1 (chief complaint) Cellulitis of left leg 4 Isbell Giuliano. [address], [place], [place], [address] , [place]. tel:[phone] OFFICE/OUTPA TIENT VISIT, [facility], [address], [place], [place], [address], [place] tel:[phone] [facility] chronic pain1 (chief complaint) polyp1 (chief complaint) Chronic pain syndromePolyp of colon 4 Sukhi Nobles. [address], [place], [place], [address] , [place]. tel:[phone] OFFICE/OUTPA TIENT VISIT, [facility], [address], [place], [place], [address], [place] tel:[phone] [facility] rectal (chief complaint) Polyp of colonEsophageal varices 4 Sukhi Nobles. [address], [place], [place], [address] , [place]. tel:[phone] OFFICE/OUTPA TIENT VISIT, [facility], [address], [place], [place], [address], [place] tel:[phone] [facility] Gi bleeding1 (chief complaint) pain (chief complaint) Alcoholic hepatic cirrhosis w/o ascitesEsophageal varicesOccult blood in stoolChronic pain syndrome 4 Sukhi Nobles. [address], [place], [place], [address] , [place]. tel:[phone] OFFICE/OUTPA TIENT VISIT, [facility], [address], [place], [place], [address], [place] tel:[phone] [facility] liver cirrhosis1 (chief complaint) chronic pain1 (chief complaint) Chronic pain syndromeHemoptysisP ulmonary edemaEsophageal varices 3 Sukhi Nobles. [address], [place], [place], [address] , [place]. tel:[phone] OFFICE/OUTPA TIENT VISIT, [facility], [address], [place], [place], [address], [place] tel:[phone] [facility] GI (chief complaint) Alcoholic hepatic cirrhosis w/o ascites 3 Sukhi Chamberlain [address], [place], [place], [address] , [place]. tel:[phone] OFFICE/OUTPA TIENT VISIT, [facility], [address], [place], [place], [address], [place] tel:[phone] [facility] cirrhosis1 (chief complaint) DM (chief complaint) LFT (chief complaint) platelet1 (chief complaint) pain (chief complaint) Type 2 diabetes mellitus with diabetic nephropathyOther cirrhosis of liverThrombocytopen iaChronic pain syndrome 3 Sukhi Chamberlain [address], [place], [place], [address] , [place]. [phone] OFFICE/OUTPA TIENT VISIT, [facility], [address], [place], [place], [address], [place] tel:[phone] [facility] chronic pain1 (chief complaint) HLP (chief complaint) COPD1 (chief complaint) DM (chief complaint) Centrilobular emphysemaCAD of [place] coronary artery without angina pectorisType 2 DM w/ diabetic neuropathyChronic pain syndrome 3 Sukhi Chamberlain [address], [place], [place], [address] , [place]. tel:[phone] [facility], [address], [place], [place], [address], [place] tel:[phone] [facility] No Information 3 Sukhi Chamberlain [address], [place], [place], [address] , [place]. tel:[phone] OFFICE/OUTPA TIENT VISIT, [facility], [address], [place], [place], [address], [place] tel:[phone] [facility] sick (chief complaint) Acute bronchitisViral infection 3 Sukhi Nobles. [address], [place], [place], [address] , [place]. tel:[phone] OFFICE/OUTPA TIENT VISIT, [facility], [address], [place], [place], [address], [place] tel:[phone] [facility] COVID (chief complaint) Viral infection 3 Sukhi Nobles. [address], [place], [place], [address] , [place]. tel:[phone] [facility], [address], [place], [place], [address], [place] tel:[phone] [facility] No Information 3 Sukhi Nobles. [address], [place], [place], [address] , [place]. [phone] OFFICE/OUTPA TIENT VISIT, [facility], [address], [place], [place], [address], [place] tel:[phone] [facility] back pain1 (chief complaint) DM (chief complaint) COPD1 (chief complaint) liver cirrhosis1 (chief complaint) low platelet1 (chief complaint) CAD (chief complaint) Type 2 DM w/ diabetic neuropathyCAD of [place] coronary artery without angina pectorisCentrilobul ar emphysemaOther cirrhosis of liverChronic pain syndrome 3 Sukhi Nobles. [address], [place], [place], [address] , [place]. tel:[phone] Family History Family Member Type Diagnosis Age At Onset Mother Problem of CAD 74 Father Problem of emphysema 70 Brother Problem Alive and well Payers Payer name Insurance type Covered democrat ID Alyssa gary(s) [facility] CI [id number] Social History Type Description Quantity Date Captured Comments Alcohol Use Details beer & wine 1 drink rarely Caffeine Use Details Unknown Tobacco Use Status Heavy cigarette smok er (20-39 cigs/day) Smoking Status Heavy tobacco smoker Sex Male Vital Signs Date / Time: Height Weight BMI Pulse Rate Blood Pressure Temperature Respiratory Rate Body Surface Area Head Circumference BMI percentile Pulse Ox Inhaled Ox 3:15 PM 72.00 in 234.20 lbs 31.7 6 kg/m eter (2) 65 /min 110/70 mm[Hg] 96.2 F 16 /min Chief Complaint And Reason For Visit From encounter dated '07/19/2025 15:07'. pain (chief complaint). Description: Pt has chronic neck and jamie pain. Pt states that he is in painall the time. Pt denies any loss of bowel or bladder control or saddle area paresthesia. MRI of C and T and L spine showed severe DDD. He needs norco refilled. Pt needs lidocaine patch refilled. skin (chief complaint). Description: Pt c/o recurrent abscess under scrotum and on buttock for several days .Pt wants abx Pt notices some pain and drainage. Pt denies any fever Pt wants oral abx. liver cirrhosis1 (chief complaint). Description: Pt has liver cirrhosis with ascites. Pt takes lasix and spironolactone Pt has not seen liver specialist for a while. Pt denies any edema ED (chief complaint). Description: Pt has ED Pt takes sildenafil PRn and dong ok Plan Of Treatment Date Type Action Status Referral Ordered: Physical Therapy (related to Cellulitis of right leg) ordered Referral Referred To: Physical Therapy Ordered: Referrals: Physical Therapy. Evaluate and treat ordered Referral Ordered: COLONOSCOPY AND BIOPSY ordered Referral Ordered: ESOPH ENDOSCOPY, DILATION ordered Referral Ordered: CT THORAX W/O DYE ordered Referral Ordered: CHEST X-RAY PA/LAT TWO-VIEWS ordered Referral Ordered: Pain Medicine (related to Chronic pain syndrome) ordered Referral Ordered: Referrals: Pain Medicine. Evaluate and treat ordered Appointment Julius Campos BOOKED History Of Present Illness Encounter Date Complaint History Of Prese nt Illness pain Pt has chronic n mark and jamie pain. Pt states that he is in pain all the time. Pt denies any loss of bowel or bladder control or saddle area paresthesia. MRI of C and T and L spine showed severe DDD. He needs norco refilled. Pt needs lidocaine patch refilled. skin Pt c/o recurrent abscess under scrotum and on buttock for several days .Pt wants abx Pt notices some pain and drainage. Pt denies any fever Pt wants oral abx. liver cirrhosis1 Pt has liver ci rrhosis with ascites. Pt takes lasix and spironolactone Pt has not seen liver specialist for a while. Pt denies any edema ED Pt has ED Pt nola es sildenafil PRn and dong ok CHF1 Pt has history o f CAD with stent with recent CHF. Pt is on lasix, spironolactone, entresto, coreg, He saw cardiology and he is on lasix 20 mg daily now Pt denies any chest pain or sob. Pt denies any chest pain or sob Pt denies any edema DM Pt has DM Pt see s endo Pt is on 75/25 insulin and his recent A1c is at goal around 7. Pt denies any polyuria, polydipsia Pt denies any hypoglycemia . ED Pt has ED pt nee ds sildenafil refilled Pt denies any testicular pain, atrophy or nodule. Pt has good libido CHF Relevant medical history includes diabetes mellitus. back pain1 Pt has chronic n mark and [...] den ies any testicular pain, atrophy or nodule. Pt needs sildenafil refill Pt denies any chest pain with sex . CHF1 Pt has CHF with ischemic cardiomyopathy Pt sees rip machine operator. Pt is on lasix now. He also takes entresto, spironolactone, coreg. he denies any chest pain ascites1 pt has liver cir rhosis due to KHAN with ascites. Pt sees liver specialist Pt is getting frequent paracentesis by GI pain Pt has chronic n mark and [...] norco refilled. Pt needs lidocaine patch refilled. ascites1 Pt has liver cir rhosis with ascites. Pt has not gained weight and he denies any recurrent leg edema. Pt takes spironolactone and lasix and he denies any weight gain or sob wound1 Pt has venous st asis ulcer right leg Pt has bee applying silvadene and the wound is almost healed . skin1 Pt has open skin sore right lower leg due to recent leg edema and also venous stasis Pt denies any fever, chill, purulent drainage, etc. Pt has been covering the wound with dry gauze anemia1 Pt is anemic, mo st likely due to dilutional effects from ascites ED Pt has ED. Pt do ing ok with sildenafil PRN Pt needs it refilled Pt denies any chest pain with sex. pneumonia1 Pt was treated f or pneumonia while in patient with abx. Pt denies any cough, sob or any chest pain or fever pain Pt has chronic n mark and jamie pain. Pt states that he is in pain all the time. Pt denies any loss of bowel or bladder control or saddle area paresthesia. MRI of C and T and L spine showed severe DDD. He needs norco refilled. Pt needs lidocaine patch refilled. cirrhosis1 Pt was admitted to hospital and discharged on 03/20/2025 due to acute and worsening ascites. Pt underwent paracentesis with 10 L of fluid removed from abdomen. Pt also c/o bilateral leg edema with sob. Pt currently feels better since paracentesis and his leg no longer swells. Pt is on lasix and spironolactone currently. Pt denies any sob. Pt also had acute on chronic systolic HF. He saw rip machine operator and was restarted on coreg. his symptoms improved with diuresis. sick Pt was admitted to ICU due to severe ascites, s.p paracentesis, sepsis, pneumonia, low bp requiring pressor in ICU and he had central line placement and he left the hospital AMA today from the ICU and he presented to my office for evaluation .He states that he needs his pain medication refilled. His abdomen is very distended. He does have liver cirrhosis. Currently he feels weakness. he denies any acute sob He gained some weight due to ascites. physical Pt needs annual physical pt has [...] pt had surgery right hand recently at [facility]. Pt doing ok. Pt will have [...] out of norco early due to pain HLP Pt has HLP and C AD Pt sees cardiology .Pt is on lipitor and ASA and plavix Pt denies any chest pain platelet1 Pt has low plate let. Pt denies any bleeding or bruising Pt is seeing hematology and was told that low platelet is due to fatty liver. liver1 Pt has fatty francoise er and liver cirrhosis Pt sees Lzia ferrera (liver specialist). pt denies any abd pain or jaundice. Pt does not have any ascites. Pt also has gallstone pain Pt has chronic n mark and jamie pain. Pt states that he is in pain all the time. Pt denies any loss of bowel or bladder control or saddle area paresthesia. MRI of C and T and L spine showed severe DDD. He needs norco refilled. Pt needs lidocaine patch refilled. cirrhosis1 Pt has liver cir rhosis due to KHAN. Pt is seeing strapping machine tender. Pt denies any abd pain or jaundice. Pt rarely drinks alcohol COPD Pt has COPD. pt is on spiriva and albuterol and he notices the need to use albuterol more lately. Pt denies any hemoptysis cough1 Pt has been havi ng some dry cough for several days Pt states that he has hard time cough up the phlegm Pt denies any chest pain or sob or fever. He denies any sore throat or sinus congestion or ear pain pain Pt has chronic n mark and jamie pain. Pt states that he is in pain all the time. Pt denies any loss of bowel or bladder control or saddle area paresthesia. MRI of C and T and L spine showed severe DDD. He needs norco refilled. Pt needs lidocaine patch refilled. DM Pt has DM pt is on humalog and he has inez with endo next week. His glucose is around 120s. CAD Pt has CAD with stent Pt is on entresto, plavix, lipitor and ASA Pt sees cardiology Pt denies any chest pain pain Pt has chronic n mark and jamie pain. Pt states that he is in pain all the time. Pt denies any loss of bowel or bladder control or saddle area paresthesia. MRI of C and T and L spine showed severe DDD. He needs norco refilled. Pt wants to try lidocaine patch carpal tunnel1 Pt has left carp al [...] showed severe DDD. He needs norco refilled DM Pt has DM. he is on Humalog mix 75/25 SC 40 units BID after breakfast and dinner. His A1c is around 6.4 with fasting glucose 140 recently. Pt has inez with endo in May and he needs insulin refilled. shoulder pain1 Pt c/o chronic b ilateral [...] 140 recently. Pt does see endo at [facility] who retired recently and he does not want to see MECHANICAL SERVICE TECHNICIAN for his DM care and he wants referral to new dock operator Pt is about to running out of [...] 5 mg norco barely helps his pain pain1 Pt has chronic n mark and [...] Pt does not have any esophageal varices. skin1 Pt c/o acute ons et of [...] rrhosis and he sees liver specialist at [facility], who told him that he may have esophageal varices. Pt has been coughing up some blood tinge phlegm last week. Pt denies any persistent cough or sob. Pt denies any chest pain Pt went to ER and had chest x ray done which showed some cardiomegaly and mild pulmonary edema. Pt does see rip machine operator. chronic pain1 Pt has chronic n mark and jamie pain. Pt states that he has DDD around neck and back. Pt states that he is in pain all the time. pt states that he tried to get the MRI report from [place] but they will not release it. GI Pt has liver cir rhosis and he sees liver specialist at [facility]. Pt denies any abd pain or jaundice. Pt wants colonguard order Pt denies any lower GI issue .Pt just had EGD done two weeks ago at Dr. ricci office and he did attempt for colonoscopy but unsuccessful due to poor prep. cirrhosis1 Pt has liver cir rhosis on CT scan. Pt is seeing Dr. De Jesus from [facility] for his cirrhosis now and he [...] but he used to drink more alcohol pain Pt has chronic n mark and jamie pain. Pt states that he has DDD around neck and back. Pt states that he is in pain all the time. pt states that he tried to get the MRI report from [place] but they will not release it. HLP Pt has HLP Pt andujar s CAD Pt takes lipitor Pt sees cardiology in [facility] . Pt denies any chest pain COPD1 Pt has COPD [place] he does not know the name of the pulmonary Pt denies any sob chronic pain1 Pt has chronic n mark and jamie pain. Pt states that he has DDD around neck and back. Pt states that he is in pain all the time. pt states that he tried to get the MRI report from [place] but they will not release it. he DM Pt has dm Pt is on humalog insulin and he sees endo in [place] Pt states that his glucose is around [...] uses albuterol frequently. He denies any hemoptysis CAD Pt has CAD s/p s tent. Pt sees cardiology Pt is on entresto and plavix Pt denies any chest pain liver cirrhosis1 Pt has liver ci rrhosis but he does not have hep C and he does not drink alcohol. he does not know why he has liver cirrhosis. Pt denies any abdominal pain low platelet1 Pt has chronic t hrombocytopenia Pt denies any bleeding or bruising Pt sees oncology. DM Pt has DM with n europathy. Pt uses humalog and he sees endo (Dr. Fair) and he states that his glucose is around 140s. COPD1 Pt has COPD ,Pt sees pulmonary and he sees pulmonary and he is on spiriva. He denies any hemoptysis, sob or cough back pain1 Pt has chronic m id and low back pain with sciatica and leg neuropathy symptoms Pt denies any loss of bowel or bladder control or saddle area paresthesia Pt states that his previous MD tried him on lyrica and neurontin and cymbalta and none of them helped. Pt states that his previous PCP does not want to treat his pain. Instructions Date Instruction Additional Infor wallace No Information Assessments Type Assessment Date assessment Chronic pain syndrome assessment Male erectile dysfunction, unspe cified assessment Other cirrhosis of liver 2024 assessment Pneumonia assessment Cellulitis of buttock Mental Status Date Cognitive Assessment Orientation - [place] ed to time, place, person, situation.
--- NOTE | ~2025-07-21 | CT_ITS ---
Exam: CT chest without contrast Clinical History: [Streptococcus pneumonia ] Comparison: CT chest, abdomen and pelvis 03/12/2025 Technique: Multiple axial CT images of the chest without with IV contrast. Sagittal and coronal reformatted images were obtained. FINDINGS: Lungs and pleura: [ Tracheobronchial tree is patent. No pneumothorax. No pleural effusion. Focal pulmonary consolidation. No pulmonary mass. There are a few small subpleural reticular densities in the lower lungs. Minimal biapical scarring. There is a 5 mm subpleural nodule in the right lung apex, unchanged. Mild centrilobular emphysema in the upper lobes. The previously described 12 mm pleural-based right lower lobe nodule was not well visualized in the current study due to motion artifact. Grossly, the finding is similar to the study from 03/12/2025. Mediastinum and pulmonary cali: [ No mass or adenopathy.] Axillary/intramammary and supraclavicular: [ No mass or adenopathy.] Heart and great vessels: [ Normal heart size.[ [ No pericardial effusion.] [ No aneurysm.] Moderate atherosclerotic disease in the thoracic aorta. There are coronary artery calcifications. Chest Wall: [ Unremarkable.] Upper Abdomen: [Micronodular appearance to the surface of liver similar to the prior study. Cholelithiasis. There are a few nonenlarged, and borderline enlarged lymph nodes in the upper abdomen similar to the prior study. Osseous structures: [ No acute fracture or destructive lesion.] [ Multilevel degenerative change in the visualized spine.] Additional findings: [The study is slightly limited due to motion artifact. IMPRESSION: 1. There is a 5 mm pulmonary nodule in the right lung apex. Attention follow-up chest CT imaging. 2. Mild centrilobular emphysema in the upper lobes. 3. Cirrhosis of the liver, unchanged. 4. Cholelithiasis. 5. The previously described 12 mm pleural-based right lower lobe nodule was not well characterized in the current study due to motion artifact. Grossly, the finding is similar to the study from 03/12/2025. A follow-up chest CT in 3 months is recommended. Reviewed, dictated and finalized at location Q. IMPRESSION: 1. There is a 5 mm pulmonary nodule in the right lung apex. Attention follow-up chest CT imaging. 2. Mild centrilobular emphysema in the upper lobes. 3. Cirrhosis of the liver, unchanged. 4. Cholelithiasis. 5. The previously described 12 mm pleural-based right lower lobe nodule was not well characterized in the current study due to motion artifact. Grossly, the f inding is similar to the study from 03/12/2025. A follow-up chest CT in 3 months is recommended.
--- OUTSIDE RECORDS SUMMARY | 2025-07-21 15:14 | XMS_ITS | Clinical Summary ---
Author Organization [facility] Jaimeolga donnell [facility] Address [address] [address] Care Team Providers Care Leisure Studies Professor Name Role Phone Giuliano Isbell MD Primary Care Provider [phone] Allergies No known active allergies Medications aspirin [...] Meter) True Metrix Glucose Meter Active Insulin Th[place], Disposable, (TRUEplus Pen Needle) 31 gauge x [...] Encounters Date Type Department Care Team Description 07/11/2025 External Device Data [facility] ABSTRACTION Provider, Abstract 06/27/2025 External Device Data [facility] ABSTRACTION Provider, Abstract 05/09/2025 External Device Data [facility] ABSTRACTION Provider, Abstract [...] Description 08/08/2025 1:00 PM CDT Office Visit [facility] Oncology and Hematology [place] [address] [facility] [address] [place] [address] Prem Yang MD [address] [place] [address] Health Maintenance Due Date Last [...] Abdominal Aortic Aneurysm (A AA) Screening 2019 COVID-19 Vaccine (3 - 2023-2 5 season) 2024 03/14/2021, 02/23/2021 DIABETES ANNUAL FOOT EXAM 06/21/2025 06/21/2024 INFLUENZA VACCINE (#1) 2025 3, 09/12/2022, 08/21/2021, Additional history exists DIABETES HBA1C Q 6 MONTHS 08/22/20252024, 02/19/2025, 06/21/2024, Additional history exists ZOSTER VACCINE Completed 09/12/2022, 11/23, 09/03/2021 PNEUMOCOCCAL VACCINE 50+ YEARS Completed 1 12/13/2022, 10/03/2022, 08/21/2021, Additional history exists Insurance Care Teams Leisure Studies Professor Relationship Specialty Start Date End Date Giuliano Isbell MD [address] [place] [id number] PCP - General Family Practice 08/08/24
--- OUTSIDE RECORDS SUMMARY | 2025-07-21 15:14 | XMS_ITS | Encounter Summary ---
Author Organization [facility] Address [address] [place] [address] Phone Care Team Providers Care Automobile Parts Assembler Name Role Phone Giuliano Isbell MD Primary Care Provider [phone] Jazmin Durbin RN Unavailable [phone] Encounter Details Date Type Department Care Team (Late st Contact Info) Description 07/13/2024 Orders Only [facility] Scanning, Provider Social History Tobacco Use Types Packs/Day Years Used Date Smoking Tobacco: Every Day Cigarettes 1 55.7 Started: 1971 Passive Smoke Exposure: Current Smokeless [...] on file 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
--- OUTSIDE RECORDS SUMMARY | 2025-07-21 15:14 | XMS_ITS | Encounter Summary ---
Author Organization [facility] Address [address] [place] [address] Care Team Providers Care Resource Management Specialist Name Role Phone Giuliano Isbell MD Primary Care Provider [phone] Encounter Details Date Type Department Care Team (Late st Contact Info) Description 03/15/2025 Orders Only [facility] Health Information Management [address] [place] [id number] Scanning, Provider Social History Tobacco Use Types Packs/Day Years Used Date Smoking Tobacco: Every Day Cigarettes 1 55.7 Started: 1971 Passive Smoke Exposure: Current Smokeless Tobacco: Never Alcohol Use Standard Drinks/Week Comments No 0 (1 standard drink = 0.6 oz pur e alcohol) [facility] Utilities Answer Date Recorded In the past 12 months has [employer], oil, or water [employer] threatened to shut off services in your [...] answer 03/01/2025 Social Connection and Isolation Panel Answer Date Recorded In a typical week, how many times do you talk on the phone with family, friends, or neighbors? Three times a week 03/01/2025 How often do you get togethe r with friends or relatives? Once a week 03/01/2025 How often do you attend [facility] or amish services? Patient unable to answer 03/01/2025 Do you belong to any clubs o r organizations such as uatsdin groups, unions, fraternal or athletic groups, or [...] Date Recorded PHQ-2 Total Score 0 03/01/2025 [facility] - Occupational Stress [...] any time in the past 12 [facility], were you homeless or living in a senior living (including now)? 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 Gender Identity Not on file Sexual Orientation Not on file documented as of this encounter Plan of Treatment Not on file documented as of this encounter Procedures Procedure Name Priority Date/Time Associated Diagnosis Comments SCAN - RADIOLOGY/IMAGING 03/15/2025 documented in this encounter Results * SCAN - RADIOLOGY/IMAGING (03/15/2025) Anatomical Region Laterality Modality Other us Provider Scanning Final Result documented in this encounter Visit Diagnoses Not on filedocumented in this encounter Care Teams Resource Management Specialist Relationship Specialty Start Date End Date Giuliano Isbell MD [address] [place] [address] PCP - General Family Medicine 07/13/23 documented as of this encounter
--- OUTSIDE RECORDS SUMMARY | 2025-07-21 15:14 | XMS_ITS | Clinical Summary ---
Author Organization [facility] Address [address] [place] [address] Care Team Providers Care Political Science Instructor Name Role Phone AnaEnmanuel DO Unavailable Cholo Mcmahon MD Primary Care Provider [phone] [facility],non-owned Affiliates and Associated Physician Practices is amultiple site organization consisting of ambulatory clinics and hospital sitesin [place], [place], [place] and [place]. This disclosure is being madepursuant to the Care Everywhere program and may not contain all information available regarding this patient. Last updated 18.[facility] Allergies Active Allergy Reactions Criticality Noted Date [...] pen 2 Active ergocalciferol (DRISDOL) 1.25 MG (21537 UT) capsule Take 1 (one) capsule by mouth every 7 days Active Cholecalcifero l 25 MCG (1000 UT) Take 1 (one) tablet by mouth once daily Active ferrous sulfate 325 (65 FE) MG tablet Take 1 (one) tablet by mouth once daily Active Multiple Vitamins-[place] als (HM COMPLETE MEN PO) Active B [...] Tobacco use 09/16/2021 Hyperlipidemia 10/17/2020 Atherosclerosis of [place] co ronary artery of [place] heart with unstable angina pectoris 08/31/2019 Overview (07/25/2022): CAD (coronary artery disease) Added automatically from request for surgery [id number] Calculus of gallbladder without cholecystitis Chest pain [...] 01/26/1995 Immunizations Immunization Administration Dates Next Due BioCurity primary monoval ent 12+ yr 0.3mL Purple [...] on file Legal Sex Male 3:35 PM TURPENTINE FARMER Gender Identity Not on file Sexual Orientation Not on file Last Filed Vital Signs Vital Sign Reading Time Taken Comments Blood Pressure 145/97 11/28/2022 10:43 AM TURPENTINE FARMER Pulse 81 11/28/2022 10:43 AM TURPENTINE FARMER Temperature 36.3 C (97.4 F) 11/28/2022 10:43 AM TURPENTINE FARMER Respiratory Rate - - Oxygen Saturation 96% 11/28/2022 10: 43 AM TURPENTINE FARMER Inhaled Oxygen Concentration - - Weight 116.4 kg (256 lb 9.6 oz) 023 10:43 AM TURPENTINE FARMER Height 182.9 cm (6') 11/28/2022 10:43 AM TURPENTINE FARMER Body Mass Index 34.8 11/28/2022 10:43 AM TURPENTINE FARMER Plan of Treatment Health Maintenance Due Date [...] Cancer Screening 07/17/2023 COVID-19 VACCINE (3 - 2023- season) 2024 03/14/2021, 02/23/2021 PNEUMOCOCCAL VACCINE 50+ (3 of 3 - PCV20 or PCV21) 08/11/2024 08/11/2019, 08/05/2017 DEPRESSION SCREENING 11/23/2024 DIABETES - URINE PROTEIN SCREENING 11/23/2024 MEDICARE AWV CALENDAR YEAR 2024 INFLUENZA VACCINE (#1) 2025 , 09/30/2019, 09/23/2018, Additional history exists AAA SCREENING [...] Comments HEMOGLOBIN A1C Routine 11/28/2022 12:30 PM TURPENTINE FARMER Neuropathy from Last 3 Months or Most Recently Relevant to Health Maintenance Results * (ABNORMAL) HEMOGLOBIN A1C (11/28/2022 12:30 PM TURPENTINE FARMER) Hemoglobin A1c 6.2(H) <=5.6 % 11/28/2022 3:11 PM TURPENTINE FARMER [facility] Estimated Average Glucose 131 mg/dL 11/28/2022 3:11 PM [facility] Comment: HbA1c Interpretation: Normal : < 5.7% Pre-diabetes: 5.7-6.4% Diabetes: Equal to or greater than 6.5% Test results diagnostic of diabetes should be repeated for confirmation. Treatment target values recommended by ADA and other clinical organizations should be used to evaluate metabolic control in patients. Reference: [place] Diabetes Association, Standards of Care in Diabetes -2020 In patients 70 years and older consider HbA1c target range of 7.0-7.5% (Reference: Nghia Summers et al. JAMDA. 2012) The [place]bia assay for the measurement of HbA1c is a National Glycohemoglobin Standardization Program (NGSP) certified method. Blood BLOOD SPECIMEN / Unknown Lab Venipuncture / Unknown 11/28/2022 12:30 PM TURPENTINE FARMER 11/28/2022 1:19 PM TURPENTINE FARMER Tarsha Fairchild MD LAB - CHEMISTRY ORDERABLES Final Result Performing Organization Address City/State/[facility] Co de Phone Number [facility] [address] [place] [address], [facility] [phone] from Last 3 Months or Most Recently Relevant to Health Maintenance Insurance MEDICAID - OUT OF STATE [facility] MANAGED MEDICARE ADV [facility] MANAGED MEDICARE ADV [place] [facility] MANAGED MEDICARE ADV [place] [facility] MANAGED MEDICARE ADV [place] [facility] MANAGED MEDICARE ADV [place] [facility] MANAGED MEDICARE ADV [place] [facility] MANAGED MEDICARE ADV Care Teams Political Science Instructor Relationship Specialty Start Date End Date Cholo Mcmahon MD [address] [place] [id number] PCP - General 08/14/21 Enmanuel Perez DO Orthopedic Surgery 01/25/13
--- OUTSIDE RECORDS SUMMARY | 2025-07-21 15:14 | XMS_ITS | Clinical Summary ---
Author Organization [facility] Address [address] [place] [address] Care Team Providers Care Gum Mixer Name Role Phone Unavailable Primary Care Provider [...]
--- OUTSIDE RECORDS SUMMARY | 2025-07-21 15:14 | XMS_ITS | Clinical Summary ---
Author Organization [facility] [address] Address [address] [place] [address] Care Team Providers Care Drafting Layout Man Name Role Phone Giuliano Isbell MD Primary Care Provider Allergies No known active allergies Medications nitroglycerin [...] by mouth 2 (two) times a day 2 Active atorvastatin (LIPITOR) 10 mg tablet Take 1 tablet (10 mg total) by mouth nightly Active albuterol 2.5 mg /3 mL (0.083 %) nebulizer solutionIndicat ions:Pulmonary emphysema, unspecified emphysema type (HCC) Take 3 mL (2.5 mg total) by nebulization every 4 (four) hours as needed for wheezing 360 mL 3 Active aspirin 81 mg enteric coated tablet Take 1 tablet (81 mg total) by mouth every morning Active allopurinoL (ZYLOPRIM) 300 mg tablet Take 1 tablet (300 mg total) by mouth every morning Active HYDROcodone-darrin taminophen (NORCO) 7.5-325 mg per tablet Take 1 tablet by mouth 2 (two) times a day 4 Active lidocaine (LIDODERM) 5 % Place 1 patch on the skin every morning 4 Active lancets 33 gauge misc Use to check blood sugar twice daily 200 each 4 4 Active blood glucose diagnostic strip Use to test blood glucose 2 times daily DX E11.65, Z79.4 200 strip 4 4 Active alcohol swabs pads, medicated Use to clean site where injecting insulin twice daily 200 each 4 4 Active blood-glucose meter misc Use to check blood glucose twice daily 1 each 4 Active tiotropium bromide (SPIRIVA RESPIMAT) 2.5 mcg/actuation inhalerIndicati ons:Centrilobul ar emphysema (HCC) Inhale 2 puffs daily 1 each 5 12/21/19 26 Active albuterol HFA (PROVENTIL HFA,VENTOLIN HFA,PROAIR HFA) 90 mcg/actuation inhalerIndicati ons:Centrilobul ar emphysema (HCC) Inhale 2 puffs every 6 (six) hours as needed for wheezing or shortness of breath 1 each 5 Active OLANZapine (ZyPREXA) 10 mg tablet Take 1 tablet (10 mg total) by mouth nightly 30 tablet 5 Active Additional Information Patient not taking.Reported on 07/06/[address] (PROTONIX) 40 mg EC tabletIndicatio ns:GI Bleed Take 1 tablet (40 mg total) by mouth 2 (two) times a day 60 tablet 5 Active Additional Information Patient not taking.Reported on 07/06/2025 sildenafiL (VIAGRA) 50 mg tablet Take 1 tablet (50 mg total) by mouth daily 5 Active Silvadene 1 % cream Apply topically every 12 hours 5 Active HYDROcodone-darrin taminophen (NORCO) 10-325 mg per tablet Take 1 tablet by mouth 3 (three) times a day as needed 5 Active insulin lispro protamine-insul in lispro 75/25 (HumaLOG 75/25 100 unit/mL) 100 unit/mL pen for injection Inject 40 Units under the skin 2 (two) times a day after breakfast and dinner (Total daily dose- 80 units) E11.65 75 mL 4 5 Active pen needle, diabetic 31 gauge x 1/4 needle Use to inject insulin twice daily 200 each 4 5 Active clopidogreL (PLAVIX) 75 mg tablet Take 1 tablet (75 mg total) by mouth daily 5 Active spironolactone (ALDACTONE) 100 mg tablet Take 1 tablet (100 mg total) by mouth daily 5 Active furosemide (LASIX) 40 mg tabletIndicatio ns:Systolic congestive heart failure, unspecified HF chronicity (HCC) Take 0.5 tablets (20 mg total) by mouth daily 30 tablet 3 5 Active Active Problems Problem Noted Date Diagnosed Date Streptococcus pneumoniae 07/10/2025 Assessment & Plan (07/10/2025 10:35 AM CDT): He was treated inpatient in January of 2025 Left lower lobe demonstrated complete collapse secondary to mucus plugging I will repeat a CT chest today Abdominal pain, generalized 02/20/2025 Cigarette nicotine dependence without complicati on 12/21/2024 Assessment & Plan (07/10/2025 10:33 AM CDT): - Smoking cessation counseling and techniques reviewed at length - Avoid triggers and use distraction techniques - Information given regarding [place] [employer] line: [id number]-[id number] for free services - 6 minutes spent discussing cessation He has tried many nicotine replacement therapies but gives many reasons why he does not want to quit at this time Repeat CT chest as above Assessment & Plan (12/21/2024 2:23 PM GENERAL HANDLING SUPERVISOR): - Smoking cessation counseling and techniques reviewed at length - Avoid triggers and use distraction techniques - Information given regarding [place] [employer]uit line: [id number]-YES for free services - 5 minutes spent [...] 02/23/2023 Type 2 diabetes mellitus wit h stage 2 chronic kidney disease, with long-term current use of insulin 02/14/2022 [...] Lasix Assessment & Plan (01/02/2023 2:48 PM GENERAL HANDLING SUPERVISOR): Diagnosed around 2016 On insulin since diagnosis [...] Plan (07/01/2022 1:59 PM CDT): Diagnosed around 2016 On insulin [...] prescribed. 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 Congestive heart failure 09/16/2021 Assessment & Plan (07/10/2025 10:32 AM CDT): Continue aspirin, carvedilol, clopidogrel, Entresto, and furosemide I recommend close follow-up with Cardiology Assessment & Plan (12/21/2024 2:21 PM GENERAL HANDLING SUPERVISOR): Continue aspirin, carvedilol, clopidogrel, Entresto, and furosemide I recommend close follow-up with Cardiology I will have staff request a recent echocardiogram Cardiomyopathy, ischemic 11/21/2019 Atherosclerosis of [place] co ronary artery of [place] heart with unstable angina pectoris 08/31/2019 Overview (08/31/2019): Added automatically from request for surgery [id number] Calculus of gallbladder without cholecystitis Chest pain 08/10/2019 Coronary artery disease invo lving nonautologous biological coronary bypass graft with unstable angina pectoris 08/10/2019 PVD (peripheral vascular disease) 08/10/2019 Class 1 obesity due to exces s calories with serious comorbidity and body mass index (BMI) of 30.0 to 30.9 in adult 08/10/2019 Assessment & Plan (06/21/2024 [...] 01/28/2018 Centrilobular emphysema 01/28/2018 Assessment & Plan (07/10/2025 10:34 AM CDT): Continue Spiriva Respimat 2.5 two puffs daily at the same time Albuterol 2 puffs every 4-6 hours as needed only, we have discussed indications for use I do not see historic peripheral eosinophilia I believe we need an alpha-1 buccal swab We have discussed signs and symptoms that would require earlier evaluation or a change to his plan of care Assessment & Plan (12/21/2024 2:18 PM GENERAL HANDLING SUPERVISOR): He will restart Spiriva Respimat 2.5 two [...] tis Assessment & Plan (12/21/2024 2:20 PM GENERAL HANDLING SUPERVISOR): He has been well-controlled on as needed therapy Elevate head of bed while sleeping Avoid trigger foods No eating 2-3 hours before bed Anxiety Resolved Problems Problem Noted Date Diagnosed Date Resolved Date Melena 02/19/2025 05/16/2025 Dyslipidemia 08/10/2019 04/06/2025 Encounters Date Type Department Care Team Description 07/06/2025 3:00 PM CDT Office Visit [facility] Pulmonary at [address] [place] [id number] Velia Alonso NP Centrilobular emphysema (HCC) (Primary Dx); Streptococcus pneumoniae; Chronic systolic congestive heart failure (HCC); Cigarette nicotine dependence without complication 06/20/2025 Telephone [facility] Orth[facility] [address] [facility] 2[address] [place] [address] Aaron Gutierrez MD 05/10/2025 3:00 PM CDT Office Visit [facility] Cardiology [address] [place] [address] Libby Stewart NP Systolic congestive heart failure, unspecified HF chronicity (HCC) (Primary Dx); History of coronary artery bypass surgery; Cardiomyopathy, ischemic; Tobacco use disorder from Last 3 Months Immunizations Immunization Administration Dates Next Due Influenza, Quad, Adjuvantate d, Intramuscular 08/08/2023,09/12/2022 Influenza, Quadrivalent, Hig h Dose, Preservative Free, Intrr 08/21/2021,08/10/2020 Influenza, Quadrivalent, Spl it, Preservative Free, Intramuscular 09/30/2019,09/23/2018,10/29/2017 Influenza, Unspecified 10/15/2021 [employer] SARS-CoV-2 Monovalent Vaccination (12+ Yrs) PURPLE 03/14/2021,02/23/2021 [...] History Medical History Date Comments Bipolar disorder denies Coronary artery disease Hypertension History of angina Hyperlipidemia Anxiety Arthritis Preoperative evaluation to rule out surgical con traindication 06/12/2017 Asthma Carotid artery disease Cervical disc disease Chest pain COPD (chronic obstructive pulmonary disease) Type 2 diabetes mellitus Disc disorder of lumbar region Lumbar stenosis Myocardial infarction (HCC) Obesity Smoker Lung disease COPD CHF (congestive heart failure) ([facility]) Cigarette nicotine dependence without complicati on 12/21/2024 Dyslipidemia 08/10/2019 Family History Medical History Relation Name Comments [...] drink = 0.6 oz pur e alcohol) [facility] Utilities Answer Date Recorded In the past 12 months has e [employer], oil, or water [employer] threatened to shut off services in your [...] week 03/01/2025 How often do you attend chur or jain services? Patient unable to answer 03/01/2025 Do you belong to any clubs o r organizations such as muslim groups, unions, fraAntidot or athletic groups, or school groups? Patient [...] Total Score 0 03/01/2025 [facility] - Occupational Stress Questionnaire Answer [...] any time in the past 12 m [facility], were you homeless or living in a longterm (including now)? No 03/01/2025 Personal Safety Answer [...] on file Legal Sex Male 6:28 PM GENERAL HANDLING SUPERVISOR Gender Identity Not on file Sexual Orientation Not on file Obstetrics History Last Filed Vital Signs Vital Sign Reading Time Taken Comments Blood Pressure 120/60 07/06/2025 2:57 PM CDT Pulse 60 07/06/2025 2:57 PM CDT Temperature 36 C (96.8 F) 07/06/2025 2:57 PM CDT Respiratory Rate 18 07/06/2025 2:57 PM CDT Oxygen Saturation 98% 07/06/2025 2:57 PM CDT Inhaled Oxygen Concentration - - Weight 105.9 kg (233 lb 8 oz) 07/06/2025 2:57 PM CDT Height 182.9 cm (6') 07/06/2025 2:57 PM CDT Body Mass Index 31.67 07/06/2025 2:57 PM CDT Plan of Treatment Health Maintenance Due Date Last Done Comments Colon Cancer Screening-Colonoscopy 1955 DTaP/Tdap/Td Vaccine (1 - Tdap) 1965 Hepatitis B Screening 02/13/1972 Well Visit 65+ 2019 Dilated Eye Exam 01/22/2023 01/22/2022 Lung Cancer Screening 11/12/2023 11/12/2022, 022 Covid-19 Vaccine (2023-2 5 season) 2024 09/17/2023, 10/03/2022, 04/11/2022, Additional history exists Foot Exam 06/21/2025 06/21/2024, 12/24, 07/01/2022, Additional history exists Influenza Vaccine (#1) 2025 , 09/12/2022, 10/15/2021, Additional history exists Hemoglobin A1C 08/22/2025 02/20/2025, 01/23, 06/21/2024, Additional history exists Depression Screening 02/19/2026 02/19/2025 Lipid Panel 02/20/2026 02/20/2025, 08/0 07/2022, 06/12/2017 eGFR 03/01/2026 03/01/2025, 04/0 06/2025, 02/27/2025, Additional history exists Fall Risk Assessment 03/02/2026 03/02/2025 Albumin Creatinine Ratio, Urine 04/05/2026 5, 07/01/2022 Abdominal Aortic Aneurysm (A AA) Screen Completed 03/20/2022 Zoster Vaccine Completed 09/12/2022, 11/23, 09/03/2021 Pneumococcal vaccine 65+ Completed 023, 10/03/2022, 08/21/2021, Additional history exists Hepatitis C Screening Completed 02/22/2025 , 02/20/2025, 07/13/2023 Medical Devices Implanted Type Area County Director Welfare Device Identifier Shelf Expiration Date Model / Serial / Lot [employer] [id number] Angio-Seal Evolution 6fr .035in Guidewire Bypass Tube Suture - [id number] Implanted:Qty : 1 on 09/08/2019 by Shan Mcginnis MD at [facility] Other - see comments [employer] 04/22/2020 [id number] / / [id number] Cardiac Stent X4 Implanted:Qty : 4 N/A: Heart Description: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 Procedures Procedure Name Priority Date/Time Associated Diagnosis Comments ALBUMIN CREATININE RATIO, URINE Routine 04/05/2025 3:06 PM CDT Type 2 diabetes mellitus with hyperglycemia, with long-term current use of insulin (HCC) EGFR Routine 03/01/2025 8:13 PM CDT HEPATITIS C ANTIBODY Routine 02/22/2025 6:21 AM CDT LIPID PANEL STAT 02/20/2025 8:49 AM CDT HEMOGLOBIN A1C STAT 02/19/2025 8:[address] CHEST WO CONTRAST F/U LUNG SCREEN PROTOCOL Schedule Routine, Read Routine (OP Routine) 11/12/2022 4:29 PM GENERAL HANDLING SUPERVISOR Lung nodule DIABETIC EYE EXAM Routine 01/22/2022 from Last 3 Months or Most Recently Relevant to Health Maintenance Results * Albumin Creatinine Ratio, Urine (04/05/2025 3:06 PM CDT) Albumin Ur <12.0 mg/L Comment: Interpretive Data No reference range established. Current interpretive data was last revised 2019. Testing performed by: [facility], [address] [place] [address], [place]., [address] Creatinine Ur 17.8 mg/dL [facility] Comment: Interpretive Data No reference range established. Current interpretive data was last revised 2019. Testing performed by: [facility] [address] [place] [address]., [id number] Albumin Creatinine Ratio, Ur See Comment 1 - 29 [facility] Comment: Unable to calculate Testing performed by: [facility], [address] [place] [address]., [id number] Urine 04/05/2025 3:06 PM CDT 04/05/2025 8:15 PM CDT us Ramya Francisco PRISON LIBRARIAN LAB URINE ORDERABLES Final Resu lt Performing Organization Address City/[facility]/ZIP Co de Phone Number H[facility] [address] [facility] Department [place] [address] * eGFR (03/01/2025 8:13 PM CDT) eGFR [...] LAB BLOOD ORDERABLES Final Res ult [facility] Department [place] [address] * Hepatitis C antibody Blood (02/22/2025 6:21 AM CDT) Hep C Ab Nonreactive Nonreactive Comment:Antibodies to HCV no t detected. Does NOT exclude the possibility of recent exposure to HCV. Current interpretive data was last revised on 22 Blood 02/22/2025 6:21 AM CDT 02/22/2025 7:57 AM CDT us Hood Pacheco MD LAB MICROBIOLOGY - GENERAL ORDER MICHELLE Final Result [facility] Department [place] [address] * (ABNORMAL) Lipid panel (02/20/2025 8:49 AM [...] on 2018. Triglycerides 131 <=149 mg/dL [facility] Comment: Interpretive Data Ages < or [...] revised on 2018. HDL 21(L) >=40 mg/dL [facility] Comment: Interpretive Data Ages < or [...] on 2018. LDL, calculated 43 <=129 mg/dL [facility] Comment: Interpretive Data Ages < or [...] revised on 2024. Non-HDL Cholesterol 67 mg/dL [facility] Comment: Interpretive Data Ages < or [...] last revised on 2018. Chol/HDL ratio 4 [facility] Blood 02/20/2025 8:49 AM CDT 02/20/2025 9:26 AM CDT Narrative [facility] - 02/20/2025 4:02 PM CDT Reflex Hood Pacheco MD LAB BLOOD ORDERABLES Final Resul t Performing Organization Address [facility] de Phone Number [facility] [place] [address] * (ABNORMAL) Hemoglobin A1c (02/19/2025 8:12 PM CDT) Hgb A1C 6.4(H) 4.0 - 5.6 % Estimated Average Glucose 137 mg/dL [facility] Comment: The ADA recommends reporting an [...] ORDERABLES Final Resul t Performing Organization Address [facility] de Phone Number [facility] [place] [address] * CT Chest WO Contrast F/U Lung Screen Protocol (11/12/2022 4:29 PM GENERAL HANDLING SUPERVISOR) Anatomical Region Laterality Modality Chest N/A Computed Tomogra phy 11/13/2022 8:38 AM GENERAL HANDLING SUPERVISOR Narrative 11/13/2022 8:47 AM GENERAL HANDLING SUPERVISOR EXAM DESCRIPTION: CT CHEST WO CONTRAST F/U [...] More Greenwood M.D. TW: CASSIE Report ID: [id number] Reading Location: [id number] Procedure Note Greenwood, More Dailey MD - 11/13/2022 EXAM DESCRIPTION: CT CHEST [...] More Greenwood M.D. TW: TW Report ID: [id number] Reading Location: [place] [address] Sami Campbell MD IMG CT PROCEDURES Final Result * Diabetic Eye Exam (01/22/2022) Historical Provider HEALTH MAINTENANCE Final Result from Last 3 Months or Most Recently Relevant to Health Maintenance Insurance [facility] MEDICARE ADVANTAGE [facility] MEDICARE ADVANTAGE [facility] MEDICARE ADVANTAGE Advance Directives For more information, please contact: [phone] * Full Code (Latest Code Status on File) Date Activated Date Inactivated Comments 02/20/2025 1:29 PM 03/02/2025 8:05 PM * Full Code Date Activated Date Inactivated Comments 09/08/2019 2:14 PM 09/08/2019 9:30 PM Care Teams Drafting Layout Man Relationship Specialty Start Date End Date Giuliano Isbell MD [place] [address] PCP - General Family Medicine 07/13/23
== END 2025-07-21 15:09 | disposition home or self-care (01) ==
PROVIDERS: PCP Emergency Medicine; Visit Provider Nurse Practitioner
DX: J15.3 Pneumonia due to streptococcus, group B (principal)
CPT/HCPCS: 71250

== ENCOUNTER 2025-08-04 11:14 | Outpatient (CLI) | payer MEDICARE, SELFPAY ==
[2025-08-04 11:48] LABS: Hematocrit 36.2 % (42.0-52.0); Hemoglobin 11.9 g/dL (14.0-18.0); Immature Granulocyte Percent A 0.0 % (0-0.5); Lymphocytes Absolute Auto 2.00 K/mm3 (0.9-3.2); Mean Corpuscular HGB Conc 32.9 g/dl (32-36); Mean Corpuscular Hemoglobin 30.1 pg (26-34); Mean Corpuscular Volume 91.4 fl (80-100); Nucleated Red Blood Cells Absolute Auto 0.000 K/mm3 (0.0-0.012); Nucleated Red Blood Cells Perc 0.0 % (0.0-0.2); Platelet Count Result 132 k/mm3 (150-375); Red Blood Count 3.96 M/mm3 (4.6-6.20); White Blood Count 5.1 K/mm3 (4.5-10.0)
[2025-08-04 11:55] LABS: Schistocytes None Seen
[2025-08-04 11:57] LABS: Anisocytosis 2+
[2025-08-04 14:13] LABS: Alanine Aminotransferase 28 U/L (6-50); Albumin Level 3.9 g/dL (3.5-5.1); Alkaline Phosphatase 79 U/L (38-126); Anion Gap 7 mmol/L (4-12); Aspartate Amino Transferase 66 U/L (17-59); Bilirubin,Total 0.6 mg/dL (0.2-1.3); Blood Urea Nitrogen 30 mg/dL (9-20); Calcium 9.3 mg/dL (8.4-10.2); Carbon Dioxide 24 mmol/L (22-30); Chloride 101 mmol/L (98-107); Estimated Glomerular Filt Rate 46; Glucose 120 mg/dL (65-110); Potassium 5.5 mmol/L (3.4-5.0); Sodium 132 mmol/L (137-145); Total Protein 8.1 g/dL (6.3-8.2)
[2025-08-04 15:08] LABS: Vitamin B12 927.0 pg/mL (239-931)
== END 2025-08-04 11:15 | disposition home or self-care (01) ==
LOC: ANHLAB 11:15
PROVIDERS: PCP Emergency Medicine; Visit Provider Internal Medicine Hematology & Oncology
DX: D69.59 Other secondary thrombocytopenia (principal)
CPT/HCPCS: 36415; 80053; 82607; 85025

== ENCOUNTER 2025-08-08 13:35 | Outpatient (CLI) | payer MEDICARE, SELFPAY ==
--- OUTSIDE RECORDS SUMMARY | 2014-02-02 10:45 | XMS_ITS | Continuity of Care Document ---
Author Organization [facility] Address [address] [place] [address] [place] [address] Phone Care Team Providers Care Information Technology Program Manager Name Role Phone Giuliano Isbell MD Unavailable Unavailable Advance Directives Directive Yes / No Effective Date File Name No Information Encounters Encounter Description Practice Location Reason(s) For Visit Diagnoses Date Provider Providers Copied on Encounter [facility], [address] [place], [place], [id number], [place] tel:[phone] [facility] No Information Sukhi Nobles. [address] [facility] [place], [address], [place]. tel:[phone] Family History Family Member Type Diagnosis Age At Onset No Information Payers Payer name Insurance type Covered republican ID Authoriza tion(s) No Information Social History Type Description Quantity Date Captured Comments Sex Male Smoking Status No Information Chief Complaint And Reason For Visit No Information Plan Of Treatment Date Type Action Status No Information History Of Present Illness Encounter Date Complaint History Of Prese nt Illness No Information Instructions Date Instruction Additional Infor mation No Information Assessments Type Assessment Date No Information
--- OUTSIDE RECORDS SUMMARY | 2015-03-16 04:10 | XMS_ITS | Continuity of Care Document ---
Author Organization [facility] Address [address] [place] [address] Phone Care Team Providers Care Data Warehousing Manager Name Role Phone Sami Flores MD Unavailable Unava ilable Medications Medication Instructions Dosage Effective Dates (start - stop) Status Comments fenofibrate 160 mg tablet take 1 tablet by oral route every day 160 MG - Active Taylor 5 mg-325 mg tablet take 1-2 tablet by oral route every 4-6 hours as needed for pain max 8 in 24 hours - Active Xanax 0.5 mg tablet 1/2 - 2 tabs po TID prn severe anxiety - Active simvastatin 40 mg tablet take 1 tablet by oral route every day in the evening 40 MG - Active metoprolol tartrate 25 mg tablet - Active indomethacin 50 mg capsule - Active clopidogrel 75 mg tablet - Active Century Mature tablet - Active aspirin 81 mg chewable tablet - Active Advance Directives Directive Yes / No Effective Date File Name No Information Encounters Encounter Description Practice Location Reason(s) For Visit Diagnoses Date Provider Providers Copied on Encounter [facility], [address], [place], [place], [address] , tel: [phone] [facility] No Information 5 Sandra Agudelo. [address], [address], [place], [place], [address] , [place]. tel: [phone] [facility], [address], [place], [place], [address] , tel: [phone] [facility] Coronary artery disease, occlusiveAortocoron brandi bypass statusOld [place] (myocardial infarction)Pain, kneeHypertension, benignHyperlipidemi aChronic painSpecial screening, prostate cancer 4 Sandra Agudelo. [address], [address], [place], [place], [address] , . tel: [phone] Referring Provider: Sami Flores, [address], [place], [address] . tel:[phone] [facility], [address], [place], [place], [address] , [place] tel: [phone] [facility] No Information 4 Sandra Agudelo. [address], [address], [place], [place], [address] , [place]. tel: [phone] Family History Family Member Type Diagnosis Age At Onset Father Problem (finding) hypertension Father Problem (finding) Eczema Problem (finding) Family history of alzhe gage's disease Immunizations Vaccine Date Status Comments Influenza, injectable, quadrivalent, preservative free, 3 yrs or older administered Source: New Immuniz ation Record Payers Payer name Insurance type Covered democrat ID Authoriza tion(s) HUMANA MDCR PPO [place] [id number] HUMANA MDCR PPO [place] [id number] Social History Type Description Quantity Date Captured Comments Sex Male Smoking Status No Information Chief Complaint And Reason For Visit No Information Reason For Referral Reason For Referral No Information History Of Present Illness Encounter Date Complaint History Of Prese nt Illness No Information Functional Status Date Functional Assessmen t No Information Instructions Date Instruction Additional Infor mation No Information Assessments Type Assessment Date No Information Patient Care Teams Name Effective Dates (start - stop) Status Members No Information
--- OUTSIDE RECORDS SUMMARY | 2025-07-25 08:40 | XMS_ITS | Continuity of Care Document ---
Author Organization [facility] Address [address] [place] [address] [place] [address] Phone Care Team Providers Care Municipal Bond Trader Name Role Phone Giuliano Isbell MD Unavailable Unavailable Allergies, Adverse Reactions, Alerts Substance Reaction Status Criticality No Known Allergies Active No Inform ation Medications Medication Instructions Dosage Effective Dates (start - stop) Status Comments spironolactone 100 mg tablet take 1 tablet by oral route every day 100 MG - Active lidocaine 5 % topical patch apply 1 [...] route every day 20 MG - Active Coreg 3.125 mg tablet [...] Diagnoses Date Provider Providers Copied on Encounter [facility], [address] [place], [address], [place] tel:[phone] [facility] No Information Sukhi Nobles. [address], [address] , [place]. tel:[phone] OFFICE/OUTPA TIENT VISIT, [facility], [address], [address], [place] tel:[phone] [facility] pain (chief complaint) skin (chief complaint) liver cirrhosis1 (chief complaint) ED (chief complaint) Chronic pain syndromeMale erectile dysfunction, unspecifiedOther cirrhosis of liverPneumoniaCellu litis of buttock 5 Sukhi Nobles. [address], [address] , [place]. tel:[phone] OFFICE/OUTPA TIENT VISIT, EST [facility], [address], [address], [place] tel:[phone] [facility] back pain1 (chief complaint) CHF (chief complaint) CHF1 (chief complaint) DM (chief complaint) ED (chief complaint) Chronic pain syndromeIschemic cardiomyopathyMale erectile dysfunction, unspecifiedType 2 diabetes mellitus with diabetic nephropathyOther cirrhosis of liver 5 Sukhi Nobles. [address], [place], [place], [address] , [place]. tel:[phone] OFFICE/OUTPA TIENT VISIT, [facility], [address], [place], [place], [address], [place] tel:[phone] [facility] pain (chief complaint) ED (chief complaint) CHF1 (chief complaint) ascites1 (chief complaint) Chronic pain syndromeOther cirrhosis of liverMale erectile dysfunction, unspecifiedIschemic cardiomyopathy 5 Sukhi Nobles. [address], [place], [place], [address] , [place]. tel:[phone] OFFICE/OUTPA TIENT VISIT, [facility], [address], [place], [place], [address], [place] tel:[phone] [facility] pain (chief complaint) ascites1 (chief complaint) wound1 (chief complaint) Cellulitis of right legChronic pain syndromeOther cirrhosis of liver 5 Sukhi Nobles. [address], [place], [place], [address] , [place]. tel:[phone] OFFICE/OUTPA TIENT VISIT, [facility], [address], [place], [place], [address], [place] tel:[phone] [facility] Medicine skin1 (chief complaint) Cellulitis of right leg 5 Sukhi Nobles. [address], [place], [place], [address] , [place]. tel:[phone] OFFICE/OUTPA TIENT VISIT, [facility], [address], [place], [place], [address], [place] tel:[phone] [facility] pain (chief complaint) ED (chief complaint) cirrhosis1 (chief complaint) pneumonia1 (chief complaint) anemia1 (chief complaint) Other ascitesChronic pain syndromeMale erectile dysfunction, unspecifiedPneumoni aAnemiaDiastolic cardiac failure 5 Sukhi Nobles. [address], [place], [place], [address] , [place]. tel:[phone] OFFICE/OUTPA TIENT VISIT, [facility], [address], [place], [place], [address], [place] tel:[phone] [facility] sick (chief complaint) Severe sepsis with septic shockOther ascitesHypotension 5 Sukhi Nobles. [address], [place], [place], [address] , [place]. tel:[phone] PREV VISIT, EST, 65 & OVER [facility], [address], [place], [place], [address], [place] tel:[phone] [facility] physical (chief complaint) Encounter for general adult medical examination without abnormal findings 5 Sukhi Nobles. [address], [address], [place], [place], [address] , [place]. tel:[phone] OFFICE/OUTPA TIENT VISIT, [facility], [address], [place], [place], [address], [place] tel:[phone] [facility] pain (chief complaint) ED (chief complaint) Chronic pain syndromeMale erectile dysfunction, unspecified 5 Sukhi Nobles. [address], [place], [place], [address] , [place]. tel:[phone] OFFICE/OUTPA TIENT VISIT, [facility], [address], [place], [place], [address], [place] tel:[phone] [facility] pain (chief complaint) abscess1 (chief complaint) tobacco1 (chief complaint) liver cirrhosis1 (chief complaint) Chronic pain syndromeNonalcoholi c steatohepatitis (KHAN)Centrilobular emphysemaCellulitis of groin 5 Sukhi Nobles. [address], [address], [place], [place], [address] , [place]. tel:[phone] OFFICE/OUTPA TIENT VISIT, [facility], [address], [place], [place], [address], [place] tel:[phone] [facility] carpal tunnel1 (chief complaint) pain (chief complaint) liver1 (chief complaint) Chronic pain syndromeAlcoholic hepatic cirrhosis w/o ascitesCarpal tunnel syndrome, bilateral upper limbsTobacco use 4 Sukhi Nobles. [address], [place], [place], [address] , [place]. tel:[phone] OFFICE/OUTPA TIENT VISIT, [facility], [address], [place], [address], [place] tel:[phone] [facility] pain (chief complaint) Chronic pain syndrome 4 Sukhi Nobles. [address], [place], [place], [address] , [place]. tel:[phone] OFFICE/OUTPA TIENT VISIT, [facility], [address], [place], [place], [address], [place] tel:[phone] [facility] abscess1 (chief complaint) Cellulitis of groin 4 Isbell Giuliano. [address], [place], [place], [address] , [place]. tel:[phone] OFFICE/OUTPA TIENT VISIT, [facility], [address], [place], [place], [address], [place] tel:[phone] [facility] pain (chief complaint) Chronic pain syndrome 4 Sukhi Nobles. [address], [place], [address] , [place]. tel:[phone] OFFICE/OUTPA TIENT VISIT, [facility], [address], [place], [address], [place] tel:[phone] [facility] pain (chief complaint) liver1 (chief complaint) platelet1 (chief complaint) HLP (chief complaint) Nonalcoholic steatohepatitis (KHAN)Chronic pain syndromeThrombocyto peniaMixed hyperlipidemia 4 Sukhi Nobles. [address], [place], [place], [address] , [place]. tel:[phone] OFFICE/OUTPA TIENT VISIT, [facility], [address], [place], [address], [place] tel:[phone] [facility] cough1 (chief complaint) COPD1 (chief complaint) pain (chief complaint) cirrhosis1 (chief complaint) Chronic pain syndromeCentrilobul ar emphysemaNonalcohol ic steatohepatitis (KHAN)Acute bronchitis 4 Isbell Giuliano. [address], [place], [address] , [place]. tel:[phone] OFFICE/OUTPA TIENT VISIT, [facility], [address], [place], [place], [address], [place] tel:[phone] [facility] pain (chief complaint) DM (chief complaint) carpal tunnel1 (chief complaint) CAD (chief complaint) Chronic pain syndromeType 2 diabetes mellitus with diabetic nephropathyCAD of [place] coronary artery without angina pectorisCarpal tunnel syndrome, bilateral upper limbs 4 Isbell Giuliano. [address], [place], [place], [address] , [place]. tel:[phone] OFFICE/OUTPA TIENT VISIT, [facility], [address], [place], [address], [place] tel:[phone] [facility] pain (chief complaint) Chronic pain syndrome 4 Isbell Giuliano. [address], [place], [place], [address] , [place]. tel:[phone] OFFICE/OUTPA TIENT VISIT, [facility], [address], [place], [place], [address], [place] tel:[phone] [facility] DM (chief complaint) pain (chief complaint) Type 2 diabetes mellitus with diabetic nephropathyChronic pain syndrome 4 Isbell Giuliano. [address], [place], [place], [address] , [place]. tel:[phone] OFFICE/OUTPA TIENT VISIT, [facility], [address], [place], [address], [place] tel:[phone] [facility] shoulder pain1 (chief complaint) Pain in left shoulder 0- 4 Sukhi Nobles. [address], [place], [place], [address] , [place]. tel: [phone] OFFICE/OUTPA TIENT VISIT, [facility], [address], [place], [address], [place] tel:[phone] [facility] DM (chief complaint) pain (chief complaint) Type 2 diabetes mellitus with diabetic nephropathyChronic pain syndrome 0 4 Isbell Giuliano. [address], [place], [address] , [place]. tel: [phone] OFFICE/OUTPA TIENT VISIT, [facility], [address], [place], [address], [place] tel:[phone] [facility] DM (chief complaint) Type 2 diabetes mellitus with diabetic nephropathy Feb-0 4 Sukhi Giuliano. [address], [place], [place], [address] , [place]. tel:[phone] OFFICE/OUTPA TIENT VISIT, [facility], [address], [place], [address], [place] tel:[phone] [facility] absess1 (chief complaint) pain (chief complaint) Cellulitis of buttockChronic pain syndrome Feb-0 4 Isbell Giuliano. [address], [place], [address] , [place]. tel:[phone] OFFICE/OUTPA TIENT VISIT, [facility], [address], [place], [address], [place] tel:[phone] [facility] colon polyp1 (chief complaint) pain1 (chief complaint) Polyp of colonChronic pain syndrome Jan-0 4 Isbell Giuliano. [address], [place], [place], [address] , [place]. tel:[phone] OFFICE/OUTPA TIENT VISIT, [facility], [address], [place], [place], [address], [place] tel:[phone] [facility] skin1 (chief complaint) Cellulitis of left leg 4 Sukhi Nobles. [address], [place], [place], [address] , [place]. tel:[phone] OFFICE/OUTPA TIENT VISIT, [facility], [address], [place], [address], [place] tel:[phone] [facility] chronic pain1 (chief complaint) polyp1 (chief complaint) Chronic pain syndromePolyp of colon 4 Sukhi Nobles. [address], [place], [place], [address] , [place]. tel:[phone] OFFICE/OUTPA TIENT VISIT, [facility], [address], [place], [address], [place] tel:[phone] [facility] rectal (chief complaint) Polyp of colonEsophageal varices 4 Sukhi Nobles. [address], [place], [address] , [place]. tel:[phone] OFFICE/OUTPA TIENT VISIT, [facility], [address], [place], [place], [address], [place] tel:[phone] [facility] Gi bleeding1 (chief complaint) pain (chief complaint) Alcoholic hepatic cirrhosis w/o ascitesEsophageal varicesOccult blood in stoolChronic pain syndrome 4 Sukhi Nobles. [address], [place], [address] , [place]. tel:[phone] OFFICE/OUTPA TIENT VISIT, [facility], [address], [place], [address], [place] tel:[phone] [facility] liver cirrhosis1 (chief complaint) chronic pain1 (chief complaint) Chronic pain syndromeHemoptysisP ulmonary edemaEsophageal varices 3 Sukhi Chamberlain [address], [place], [address] , [place]. tel:[phone] OFFICE/OUTPA TIENT VISIT, [facility], [address], [place], [place], [address], [place] tel:[phone] [facility] GI (chief complaint) Alcoholic hepatic cirrhosis w/o ascites 3 Sukhi Nobles. [address], [place], [place], [address] , [place]. tel:[phone] OFFICE/OUTPA TIENT VISIT, [facility], [address], [place], [address], [place] tel:[phone] [facility] cirrhosis1 (chief complaint) DM (chief complaint) LFT (chief complaint) platelet1 (chief complaint) pain (chief complaint) Type 2 diabetes mellitus with diabetic nephropathyOther cirrhosis of liverThrombocytopen iaChronic pain syndrome 3 Sukhi Chamberlain [address], [place], [address] , [place]. tel:[phone] OFFICE/OUTPA TIENT VISIT, [facility], [address], [place], [address], [place] tel:[phone] [facility] chronic pain1 (chief complaint) HLP (chief complaint) COPD1 (chief complaint) DM (chief complaint) Centrilobular emphysemaCAD of [place] coronary artery without angina pectorisType 2 DM w/ diabetic neuropathyChronic pain syndrome 3 Sukhi Chamberlain [address], [place], [place], [address] , [place]. tel:[phone] [facility], [address], [place], [place], [address], [place] tel:[phone] [facility] No Information 3 Sukhi Chamberlain [address], [place], [address] , [place]. tel:[phone] OFFICE/OUTPA TIENT VISIT, [facility], [address], [place], [place], [address], [place] tel:[phone] [facility] sick (chief complaint) Acute bronchitisViral infection 3 Sukhi Nobles. [address], [place], [place], [address] , [place]. tel:[phone] OFFICE/OUTPA TIENT VISIT, [facility], [address], [place], [place], [address], [place] tel:[phone] [facility] COVID (chief complaint) Viral infection 3 Sukhi Nobles. [address], [place], [place], [address] , [place]. tel:[phone] [facility], [address], [place], [place], [address], [place] tel:[phone] [facility] No Information 3 Sukhi Nobles. [address], [place], [place], [address] , [place]. tel:[phone] OFFICE/OUTPA TIENT VISIT, [facility], [address], [place], [place], [address], [place] tel:[phone] [facility] back pain1 (chief complaint) DM (chief complaint) COPD1 (chief complaint) liver cirrhosis1 (chief complaint) low platelet1 (chief complaint) CAD (chief complaint) Type 2 DM w/ diabetic neuropathyCAD of [place] coronary artery without angina pectorisCentrilobul ar emphysemaOther cirrhosis of liverChronic pain syndrome 3 Sukhi Nobles. [address], [place], [place], [address] , [place]. tel:[phone] Family History Family Member Type Diagnosis Age At Onset Mother Problem of CAD 74 Father Problem of emphysema 70 Brother Problem Alive and well Payers Payer name Insurance type Covered libertarian ID Authoriza tion(s) [facility] [id number] Social History Type Description Quantity Date Captured [...] Date Complaint History Of Prese nt Illness skin Pt c/o recurrent abscess under scrotum [...] nola es sildenafil PRn and dong ok pain Pt has chronic n mark and jamie pain. Pt states that he is in pain all the time. Pt denies any loss of bowel or bladder control or saddle area paresthesia. MRI of C and T and L spine showed severe DDD. He needs norco refilled. Pt needs lidocaine patch refilled. ED Pt has ED pt nee ds sildenafil refilled Pt denies any testicular pain, atrophy or nodule. Pt has good libido DM Pt has DM Pt see s endo Pt is on 75/25 insulin and his recent A1c is at goal around 7. Pt denies any polyuria, polydipsia Pt denies any hypoglycemia . CHF1 Pt has history o f CAD with stent with recent CHF. Pt is on lasix, spironolactone, entresto, coreg, He saw cardiology and he is on lasix 20 mg daily now Pt denies any chest pain or sob. Pt denies any chest pain or sob Pt denies any edema CHF Relevant medical history includes diabetes mellitus. [...] has CHF with ischemic cardiomyopathy Pt sees dowel pin worker. Pt is on lasix now. He also [...] norco refilled. Pt needs lidocaine patch refilled. wound1 Pt has venous st asis ulcer right leg Pt has bee applying silvadene and the wound is almost healed . ascites1 Pt has liver cir rhosis with ascites. Pt has not gained weight and he denies any recurrent leg edema. Pt takes spironolactone and lasix and he denies any weight gain or sob pain Pt has chronic n mark and jamie pain. Pt states that he is in pain all the time. Pt denies any loss of bowel or bladder control or saddle area paresthesia. MRI of C and T and L spine showed severe DDD. He needs norco refilled. Pt needs lidocaine patch refilled. skin1 Pt has open skin sore right [...] acute on chronic systolic HF. He saw dowel pin worker and was restarted on coreg. his symptoms [...] refilled. Pt needs lidocaine patch refilled. liver1 pt has liver cir rhosis Pt sees GI pt needs HCC screen. Pt has not done it yet carpal tunnel1 Pt has bilateral carpal tunnel pt had surgery right hand recently at [facility]. Pt doing ok. Pt will have left [...] rhosis due to KHAN. Pt is seeing cab starter. Pt denies any abd pain or jaundice. [...] lidocaine patch pain Pt has chronic n makr and jamie pain. Pt states that he [...] 140 recently. Pt does see endo at [facility] who retired recently and he does not want to see FOAM RUBBER MIXER for his DM care and he wants referral to new maintenance analyst Pt is about to running out of [...] no longer has hemoptysis or any cough Gi bleeding1 Pt c/o bright re d [...] states that lower GI bleeding stopped . pain Pt has chronic n mark and jamie pain. Pt states that he has DDD around neck and back. Pt states that he is in pain all the time. Pt denies any loss of bowel or bladder control or saddle area paresthesia. MRI of C and T and L spine showed severe DDD chronic pain1 Pt has chronic n mark and jamie pain. Pt states that he has DDD around neck and back. Pt states that he is in pain all the time. pt states that he tried to get the MRI report from [facility] but they will not release it. liver cirrhosis1 Pt has liver ci rrhosis and he sees liver specialist at [facility], who told him that he may have esophageal varices. Pt has been coughing up some blood tinge phlegm last week. Pt denies any persistent cough or sob. Pt denies any chest pain Pt went to ER and had chest x ray done which showed some cardiomegaly and mild pulmonary edema. Pt does see dowel pin worker. GI Pt has liver cir rhosis and he sees liver specialist at [facility]. Pt denies any abd pain or jaundice. Pt wants colonguard order Pt denies any lower GI issue .Pt just had EGD done two weeks ago at Dr. ricci office and he did attempt for colonoscopy but unsuccessful due to poor prep. cirrhosis1 Pt has liver cir rhosis on CT scan. Pt is seeing Dr. De Jesus from [facility] for his cirrhosis now and he [...] tried to get the MRI report from [facility] but they will not release it. chronic pain1 Pt has chronic n mark and jamie pain. Pt states that he has DDD around neck and back. Pt states that he is in pain all the time. pt states that he tried to get the MRI report from [facility] but they will not release it. he HLP Pt has HLP Pt andujar s CAD Pt takes lipitor Pt sees cardiology in [facility] . Pt denies any chest pain COPD1 Pt has COPD [place] the name of the pulmonary Pt denies any sob DM Pt has dm Pt is on humalog insulin and [place] Pt states that his glucose is around [...] wallace No Information Assessments Type Assessment Date No Information
--- OUTSIDE RECORDS SUMMARY | 2025-08-08 13:00 | XMS_ITS | Encounter Summary ---
Author Organization [facility] Holder [facility] Address [address] [place] [address] Care Team Providers Care Welt Cutter Name Role Phone Giuliano Isbell MD Primary Care Provider [phone] Reason for Visit * Reason Comments Follow Up Encounter Details Date Type Department Care Team (Late st Contact Info) Description 08/08/2025 1:00 PM CDT Office Visit [facility] Oncology and Hematology - [place] [address] [facility] [address] [place] [address] Prem Yang MD [address] [facility] [address] [place] [address] Chronic anemia (Primary Dx) Social History Tobacco Use Types Packs/Day Years [...] on file documented as of this encounter Last Filed Vital Signs Vital Sign Reading Time Taken Comments Blood Pressure 102/63 08/08/2025 1:06 PM CDT Pulse 58 08/08/2025 1:06 PM CDT Temperature 36.8 C (98.3 F) 08/08/2025 1:06 PM CDT Respiratory Rate 16 08/08/2025 1:06 PM CDT Oxygen Saturation 97% 08/08/2025 1:06 PM CDT Inhaled Oxygen Concentration - - Weight 106 kg (233 lb 9.6 oz) 08/08/2025 1:06 PM CDT Height - - Body Mass Index 31.68 06/11/2022 4:17 PM CDT documented in this encounter Progress Notes * Prem Yang MD - 08/08/2025 1:11 PM CDT HEMATOLOGY / ONCOLOGY PROGRESS NOTE Patient Identification: Name: Julius Campos Age: 70 y.o. Sex: male : 1955 DIAGNOSIS Thrombocytopenia Hepatic steatosis CURRENT TREATMENT Expectant TREATMENT HISTORY SUBJECTIVE Patient came to the office for follow-up visit. He denies any bleeding and bruising. He had hospitalization in in February 2025 with pneumonia. Denies any chest pain and shortness of breath. He has lost15 pound weight. No other new complaint. Review of system Constitutional: denies fevers, sweats, 15 pound weight loss without any tiredness and fatigue HEENT: denies sinus congestion, hearing or vision problems Respiratory: denies cough, dyspnea, wheeze Cardiovascular: denies chest pain, exertional chest pressure/discomfort, nausea, syncope, shortnessof breath GI: denies constipation, diarrhea, dsyphagia, reflux symptoms, vomiting, melena : denies dysuria, frequency, incontinence, urgency Integumentary system: no lymphadenopathy, sweats, flushing Musculoskeletal: denies: myalgia, complain of bilateral hip arthralgia Neurological: denies blurry or disturbed vision, numbness/weakness, dizziness Skin: No lumps, bumps or rashes. 12 point review of system was reviewed Objective: Vital signs in last 24 hours: As per nursing note Exam: General appearance: alert, cooperative, no distress, appears stated age Head: normocephalic, without obvious abnormality, atraumatic Eyes: conjunctivae/corneas clear, EOM's intact Ears: normal external ear canals AU Nose: Nares normal. Septum midline. Mucosa normal. No drainage or sinus tenderness Throat: Lips, mucosa, and tongue normal. Teeth and gums normal Neck: supple, symmetrical, trachea midline. Lungs: clear to auscultation bilaterally Heart: regular rate and rhythm, S1, S2 normal, no murmur, click, rub or gallop Abdomen: soft, non-tender. Bowel sounds normal. No masses, No organomegaly Extremities: extremities normal, atraumatic, no cyanosis or edema Skin: Skin color, texture, turgor normal. No rashes or lesions Lymph nodes: No lymphadenopathy Neuro: No obvious focal deficit Exam as above PATH LABS Labs from September 26 showed vitamin B12 911 iron 104 iron saturation 22% ferritin 25 total bilirubin 0.9 AST 46 ALT 54 creatinine 0.8 platelet antibody negative platelet count 107,000. 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 This is secondary to obesity and hepatic steatosis. Platelet antibody negative. Vitamin B12 and iron level came back normal. Labs showed improvement in the platelet count. He denies any further alcohol intake. While visual level is normal. He is not taking any vitamin B12 supplements. Anemia. Denies any bleeding other than occasional hemorrhoidal bleeding. I will check iron studies and discussed this with him next week. Coronary artery disease status post coronary artery bypass grafting. He is asymptomatic on Plavix. Type 2 diabetes. Patient is on insulin and will follow-up with the primary care physician. Follow-up phone visit in 1 week to discuss labs. 08/08/2025 Prem Yang MD documented in this encounter Plan of Treatment Upcoming Encounters Date Type Department Care Team (Late st Contact Info) Description 08/15/2025 4:30 PM CDT Telephone Check Up [facility] Oncology and Hematology - [place] [address] [place] [address] Prem Yang MD [address] [facility] [address] [place] [address] Scheduled Orders Name Type Priority Associated Diagnoses Orde r Schedule FERRITIN Lab Routine Chronic anemia Expected: 08/08/2025, Expires: 08/08/2026 IRON, TIBC, AND PERCENT SATURATION Lab Routine Chronic anemia Expected: 08/08/2025, Expires: 08/08/2026 documented as of this encounter Visit Diagnoses Diagnosis Chronic anemia- Primary Anemia, unspecified documented in this encounter Care Teams Welt Cutter Relationship Specialty Start Date End Date Giuliano Isbell MD [address] [place] [address] PCP - General Family Practice 08/08/24 documented as of this encounter
--- OUTSIDE RECORDS SUMMARY | 2025-08-08 15:16 | XMS_ITS | Encounter Summary ---
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
--- OUTSIDE RECORDS SUMMARY | 2025-08-08 15:16 | XMS_ITS | Clinical Summary ---
Author Organization [facility] Address [address] [place] [address] Care Team Providers Care Lithographic Plate Maker Name Role Phone Enmanuel Perez DO Unavailable Cholo Mcmahon MD Primary Care Provider [phone] Source Comments [facility],non-owned Affiliates and Associated Physician Practices is amultiple site organization consisting of ambulatory clinics and hospital sitesin [place], [place], [place] and [place]. This disclosure is being madepursuant to the Care Everywhere program and may not contain all information available regarding this patient. Last updated 18.[facility] Allergies Active Allergy Reactions Criticality Noted Date [...] pen 2 Active ergocalciferol (DRISDOL) 1.25 MG (69488 UT) capsule Take 1 (one) capsule by mouth every 7 days Active Cholecalcifero l 25 MCG (1000 UT) Take 1 (one) tablet by mouth once daily Active ferrous sulfate 325 (65 FE) MG tablet Take 1 (one) tablet by mouth once daily Active Multiple Vitamins-Flight Readiness Technician als (HM COMPLETE MEN PO) Active B [...] Tobacco use 09/16/2021 Hyperlipidemia 10/17/2020 Atherosclerosis of [place] co ronary artery of [place] heart with unstable angina pectoris 08/31/2019 Overview (07/25/2022): CAD (coronary artery disease) Added automatically from request for surgery [id number] Calculus of gallbladder without cholecystitis Chest pain [...] 01/26/1995 Immunizations Immunization Administration Dates Next Due GlassUp primary monoval ent 12+ yr 0.3mL Purple [...] on file Legal Sex Male 3:35 PM CONGRESSIONAL ASSISTANT Gender Identity Not on file Sexual Orientation Not on file Last Filed Vital Signs Vital Sign Reading Time Taken Comments Blood Pressure 145/97 11/28/2022 10:43 AM CONGRESSIONAL ASSISTANT Pulse 81 11/28/2022 10:43 AM CONGRESSIONAL ASSISTANT Temperature 36.3 C (97.4 F) 11/28/2022 10:43 AM CONGRESSIONAL ASSISTANT Respiratory Rate - - Oxygen Saturation 96% 11/28/2022 10: 43 AM CONGRESSIONAL ASSISTANT Inhaled Oxygen Concentration - - Weight 116.4 kg (256 lb 9.6 oz) 023 10:43 AM CONGRESSIONAL ASSISTANT Height 182.9 cm (6') 11/28/2022 10:43 AM CONGRESSIONAL ASSISTANT Body Mass Index 34.8 11/28/2022 10:43 AM CONGRESSIONAL ASSISTANT Plan of Treatment Health Maintenance Due Date [...] SCREENING 07/17/2023 07/17/2020 Colorectal Cancer Screening 07/17/2023 PNEUMOCOCCAL VACCINE 50+ (3 of 3 - PCV20 or PCV21) 08/11/2024 08/11/2019, 08/05/2017 DEPRESSION SCREENING 11/23/2024 DIABETES - URINE PROTEIN SCREENING 11/23/2024 MEDICARE AWV CALENDAR YEAR 2024 COVID-19 VACCINE (3 - season) 2025 03/14/2021, 02/23/2021 INFLUENZA VACCINE (#1) 2025 , 09/30/2019, 09/23/2018, [...] Comments HEMOGLOBIN A1C Routine 11/28/2022 12:30 PM CONGRESSIONAL ASSISTANT Neuropathy from Last 3 Months or Most Recently Relevant to Health Maintenance Results * (ABNORMAL) HEMOGLOBIN A1C (11/28/2022 12:30 PM CONGRESSIONAL ASSISTANT) Hemoglobin A1c 6.2(H) <=5.6 % 11/28/2022 3:11 PM CONGRESSIONAL ASSISTANT [facility] Estimated Average Glucose 131 mg/dL 11/28/2022 3:11 PM [facility] Comment: HbA1c Interpretation: Normal : < 5.7% Pre-diabetes: 5.7-6.4% Diabetes: Equal to or greater than 6.5% Test results diagnostic of diabetes should be repeated for confirmation. Treatment target values recommended by ADA and other clinical organizations should be used to evaluate metabolic control in patients. Reference: [place] Diabetes Association, Standards of Care in Diabetes -2020 In patients 70 years and older consider HbA1c target range of 7.0-7.5% (Reference: Nghia Summers et al. JAMDA. 2012) The Sebia assay for the measurement of HbA1c is a National Glycohemoglobin Standardization Program (NGSP) certified method. Blood BLOOD SPECIMEN / Unknown Lab Venipuncture / Unknown 11/28/2022 12:30 PM CONGRESSIONAL ASSISTANT 11/28/2022 1:19 PM CONGRESSIONAL ASSISTANT Tarsha Fairchild MD LAB - CHEMISTRY ORDERABLES Final Result Performing Organization Address City/State/[facility] Co de Phone Number [facility] [address] [place] [address], [facility] [phone] from Last 3 Months or Most Recently Relevant to Health Maintenance Insurance MEDICAID - OUT OF STATE [facility] MANAGED MEDICARE ADV [facility] MANAGED MEDICARE ADV [place] [facility] MANAGED MEDICARE ADV [place] [facility] MANAGED MEDICARE ADV [place] [facility] MANAGED MEDICARE ADV [place] [facility] MANAGED MEDICARE ADV [place] [facility] MANAGED MEDICARE ADV Care Teams Lithographic Plate Maker Relationship Specialty Start Date End Date Cholo Mcmahon MD [address] [place] [address] PCP - General 08/14/21 Enmanuel Perez DO Orthopedic Surgery 01/25/13
--- OUTSIDE RECORDS SUMMARY | 2025-08-08 15:16 | XMS_ITS | Clinical Summary ---
Author Organization [facility] [address] Address [address] [place] [address] Care Team Providers Care Physician Underwriter Name Role Phone Giuliano Isbell MD Primary Care Provider [phone] Allergies No known active allergies Medications nitroglycerin [...] Information given regarding [place] Tobacco Quit line: [phone]-[phone] for free services - 6 minutes spent discussing cessation He has tried many nicotine replacement therapies but gives many reasons why he does not want to quit at this time Repeat CT chest as above Assessment & Plan (12/21/2024 2:23 PM THIRD HAND): - Smoking cessation counseling and techniques reviewed at length - Avoid triggers and use distraction techniques - Information given regarding [place] Tobacco Quit line: [phone]-WIVC-YES for free services - 5 minutes spent [...] Lasix Assessment & Plan (01/02/2023 2:48 PM THIRD HAND): Diagnosed around 2016 On insulin since diagnosis [...] prescribed. Assessment & Plan (01/02/2023 2:38 PM THIRD HAND): With history of CAD - continue Lipitor [...] Cardiology Assessment & Plan (12/21/2024 2:21 PM THIRD HAND): Continue aspirin, carvedilol, clopidogrel, Entresto, and furosemide I recommend close follow-up with Cardiology I will have staff request a recent echocardiogram Cardiomyopathy, ischemic 11/21/2019 Atherosclerosis of [place] co ronary artery of [place] heart with unstable angina pectoris 08/31/2019 Overview (08/31/2019): Added automatically from request for surgery [id number] Calculus of gallbladder without cholecystitis Chest pain [...] care Assessment & Plan (12/21/2024 2:18 PM THIRD HAND): He will restart Spiriva Respimat 2.5 two [...] tis Assessment & Plan (12/21/2024 2:20 PM THIRD HAND): He has been well-controlled on as needed therapy Elevate head of bed while sleeping Avoid trigger foods No eating 2-3 hours before bed Anxiety Resolved Problems Problem Noted Date Diagnosed Date Resolved Date Melena 02/19/2025 05/16/2025 Dyslipidemia 08/10/2019 04/06/2025 Encounters Date Type Department Care Team Description 07/06/2025 3:00 PM CDT Office Visit [facility] Pulmonary at [address] [place] [phone] Velia Alonso NP Centrilobular emphysema (HCC) (Primary Dx); Streptococcus pneumoniae; Chronic systolic congestive heart failure (HCC); Cigarette nicotine dependence without complication 06/20/2025 Telephone [facility] Orthopaedic Surgery [address] [place] [address] Aaron Gutierrez MD 05/10/2025 3:00 PM CDT Office Visit [facility] Cardiology [address] [place] [address] Libby Stewart NP Systolic congestive heart failure, unspecified HF chronicity (HCC) (Primary Dx); History of coronary artery bypass surgery; Cardiomyopathy, ischemic; Tobacco use disorder from Last 3 Months Immunizations Immunization Administration Dates Next Due Influenza, Quad, Adjuvantate d, Intramuscular 08/08/2023,09/12/2022 Influenza, Quadrivalent, Hig h Dose, Preservative Free, Intrr 08/21/2021,08/10/2020 Influenza, Quadrivalent, Spl it, Preservative Free, Intramuscular 09/30/2019,09/23/2018,10/29/2017 Influenza, Unspecified 10/15/2021 [facility] At [employer] SARS-CoV-2 Monovalent Vaccination (12+ Yrs) PURPLE 03/14/2021,02/23/2021 [...] Lung disease COPD CHF (congestive heart failure) ([facility]) Cigarette nicotine dependence without complicati on 12/21/2024 [...] drink = 0.6 oz pur e alcohol) [facility] Utilities Answer Date Recorded In the past 12 months has e [employer], oil, or water [employer] threatened to shut off services in your [...] How often do you attend chur or sikh services? Patient unable to answer 03/01/2025 Do you belong to any clubs o r organizations such as scientologist groups, unions, frawizboo or athletic groups, or school groups? Patient [...] Date Recorded PHQ-2 Total Score 0 03/01/2025 [facility] - Occupational Stress Questionnaire Answer [...] any time in the past 12 m [facility], were you homeless or living in a usp (including now)? No 03/01/2025 Personal Safety Answer [...] on file Legal Sex Male 6:28 PM THIRD HAND Gender Identity Not on file Sexual Orientation [...] 01/22/2022 Lung Cancer Screening 11/12/2023 11/12/2022, 022 Foot Exam 06/21/2025 06/21/2024, 12/24, 07/01/2022, Additional history exists Covid-19 Vaccine (2024-2 6 season) 2025 09/17/2023, 10/03/2022, 04/11/2022, Additional history exists Influenza Vaccine (#1) 2025 [...] 02/20/2025, 07/13/2023 Medical Devices Implanted Type Area Svp [employer] Device Identifier Shelf Expiration Date Model / Serial / Lot Daig [employer] [id number] Angio-Seal Evolution 6fr .035in Guidewire Bypass Tube Suture - [id number] Implanted:Qty : 1 on 09/08/2019 by Shan Mcginnis MD at [facility] Other - see comments [employer] 04/22/2020 [id number] / / [id number] Cardiac Stent X4 Implanted:Qty : 4 N/A: [...] Read Routine (OP Routine) 11/12/2022 4:29 PM THIRD HAND Lung nodule DIABETIC EYE EXAM Routine 01/22/2022 from Last 3 Months or Most Recently Relevant to Health Maintenance Results * Albumin Creatinine Ratio, Urine (04/05/2025 3:06 PM CDT) Albumin Ur <12.0 mg/L Comment: Interpretive Data No reference range established. Current interpretive data was last revised 2019. Testing performed by: [facility], [address] [place] [address], [place]., [address] Creatinine Ur 17.8 mg/dL [facility] Comment: Interpretive Data No reference range established. Current interpretive data was last revised 2019. Testing performed by: [facility] [address] [place] [address]., [id number] Albumin Creatinine Ratio, Ur See Comment 1 - 29 [facility] Comment: Unable to calculate Testing performed by: [facility], [address] [place] [address]., [address] Urine 04/05/2025 3:06 PM CDT 04/05/2025 8:15 PM CDT us Ramya Francisco BULK INTAKE WORKER LAB URINE ORDERABLES Final Resu lt Performing Organization Address City/[facility]/ZIP Co de Phone Number [facility] [address] [facility] Department [place] [address] * eGFR (03/01/2025 8:13 PM CDT) eGFR [...] LAB BLOOD ORDERABLES Final Res ult [facility] [place] [address] * Hepatitis C antibody Blood (02/22/2025 6:21 AM CDT) Hep C Ab Nonreactive Nonreactive Comment:Antibodies to HCV no t detected. Does NOT exclude the possibility of recent exposure to HCV. Current interpretive data was last revised on 22 Blood 02/22/2025 6:21 AM CDT 02/22/2025 7:57 AM CDT us Hood Pacheco MD LAB MICROBIOLOGY - GENERAL ORDER MICHELLE Final Result [facility] Department [place] [address] * (ABNORMAL) Lipid panel (02/20/2025 8:49 AM [...] on 2018. Triglycerides 131 <=149 mg/dL [facility] Comment: Interpretive Data Ages < or = [...] revised on 2018. HDL 21(L) >=40 mg/dL [facility] Comment: Interpretive Data Ages < or [...] on 2018. LDL, calculated 43 <=129 mg/dL [facility] Comment: Interpretive Data Ages < or [...] revised on 2024. Non-HDL Cholesterol 67 mg/dL [facility] Comment: Interpretive Data Ages < or [...] last revised on 2018. Chol/HDL ratio 4 [facility] Blood 02/20/2025 8:49 AM CDT 02/20/2025 9:26 AM CDT Narrative [facility] - 02/20/2025 4:02 PM CDT Reflex Hood Pacheco MD LAB BLOOD ORDERABLES Final Resul t Performing Organization Address [facility] de Phone Number [facility] [place] [address] * (ABNORMAL) Hemoglobin A1c (02/19/2025 8:12 PM CDT) Hgb A1C 6.4(H) 4.0 - 5.6 % Estimated Average Glucose 137 mg/dL [facility] Comment: The ADA recommends reporting an [...] Performing Organization Address [facility] de Phone Number [facility] [place] [address] * CT Chest WO Contrast F/U Lung Screen Protocol (11/12/2022 4:29 PM THIRD HAND) Anatomical Region Laterality Modality Chest N/A Computed Tomogra phy 11/13/2022 8:38 AM THIRD HAND Narrative 11/13/2022 8:47 AM THIRD HAND EXAM DESCRIPTION: CT CHEST WO CONTRAST F/U [...] More Greenwood M.D. TW: CASSIE Report ID: [id number] Reading Location: [id number] Procedure Note Greenwood, More Dailey MD - [...] More Greenwood M.D. TW: TW Report ID: [id number] Reading Location: [place] [address] Sami Campbell MD IMG CT PROCEDURES Final Result * Diabetic Eye Exam (01/22/2022) Historical Provider HEALTH MAINTENANCE Final Result from Last 3 Months or Most Recently Relevant to Health Maintenance Insurance [employer] Advance Directives For more information, please contact: [phone] * Full Code (Latest Code Status on File) Date Activated Date Inactivated Comments 02/20/2025 1:29 PM 03/02/2025 8:05 PM * Full Code Date Activated Date Inactivated Comments 09/08/2019 2:14 PM 09/08/2019 9:30 PM Care Teams Physician Underwriter Relationship Specialty Start Date End Date Giuliano Isbell [place] [address] PCP - General Family Medicine 07/13/23
--- OUTSIDE RECORDS SUMMARY | 2025-08-08 15:16 | XMS_ITS | Clinical Summary ---
Author Organization [facility] Address [address] [place] [address] Care Team Providers Care Mushroom Cultivator Name Role Phone Unavailable Primary Care Provider [...] COVID-19 Vaccine ( - 2023-2 5 season) 2025 RSV Immunization or 60+ Years (1 - [...]
--- OUTSIDE RECORDS SUMMARY | 2025-08-08 15:16 | XMS_ITS | Clinical Summary ---
Author Organization [facility] Júnior Vallejoalyssa Address [address] [place] [address] Care Team Providers Care Application Developer Name Role Phone Giuliano Isbell MD Primary Care Provider [phone] Allergies No known active allergies Medications aspirin [...] Meter) True Metrix Glucose Meter Active Insulin [place], Disposable, (TRUEplus Pen Needle) 31 gauge x [...] by mouth daily. Active flu vaccine quadrivalent ,65 yr+,,PF, (Fluzone HighDose Quad 20-21 PF) 240 mcg/0.7 mL Syringe syringe Fluzone High-Dose Quad 2020 (PF) 240 mcg/0.7 mL IM syringe ADM [...] 100 unit/mL (75-25) pen syringe 2 Active spironolactone (ALDACTONE) 100 mg tablet Take 100 mg by mouth daily. Active furosemide (LASIX) 20 mg tablet Take 20 mg by mouth daily. 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 Encounters Date Type Department Care Team Description 08/08/2025 1:00 PM CDT Office Visit [facility] [place] [address] [place] [address] Prem Yang MD Chronic anemia (Primary Dx) 08/07/2025 Orders Only [facility] - [place] [address] [place] [address] Prem Yang MD 07/11/2025 External Device Data STL ABSTRACTION Provider, [...] 9.6 oz) 08/08/2025 1:06 PM CDT Height 182.9 cm (6') 06/11/2022 4:17 PM CDT Body Mass Index 31.68 06/11/2022 4:17 PM CDT Plan of Treatment Upcoming Encounters Date Type Department Care Team (Late st Contact Info) Description 08/15/2025 4:30 PM CDT Telephone Check Up [facility] - [place] [address] [facility] [address] [place] [address] Prem Yang MD [address] [address] [facility] [address] [place] [address] Health Maintenance Due Date Last [...] Abdominal Aortic Aneurysm (A AA) Screening 2019 DIABETES ANNUAL FOOT EXAM 06/21/2025 06/21/2024 INFLUENZA VACCINE (#1) 2025 , 08/08/2023, 09/12/2022, Additional history exists COVID-19 Vaccine (5 - 2024-2 6 season) 2025 10/03/2022, 04/11/2022, 03/21/2021, Additional history exists DIABETES HBA1C Q 6 MONTHS 08/22/20252024, 02/19/2025, 06/21/2024, Additional history exists ZOSTER VACCINE Completed 09/12/2022, 11/23, 09/03/2021 PNEUMOCOCCAL VACCINE 50+ YEARS Completed 1 12/13/2022, 10/03/2022, 08/21/2021, Additional history exists Medicare Advantage ([place]) Preventative Visit/Annual Wellness Visit Completed 02/02/2025, 02/02/2025 Procedures Procedure Name Priority Date/Time Associated Diagnosis Comments COMPREHENSIVE METABOLIC PANEL Routine 08/04/2025 12:59 PM CDT COMPREHENSIVE METABOLIC PANEL Routine 08/04/2025 12:50 PM CDT from Last 3 Months Results * COMPREHENSIVE METABOLIC PANEL (08/04/2025 12:59 PM CDT) Only the most recent of2 resultswithin the time period is included. Blood Prem Yang MD CHEMISTRY ORDERABLES Final Resu lt from Last 3 Months Insurance Care Teams Application Developer Relationship Specialty Start Date End Date Giuliano Isbell MD [address] [place] [phone] PCP - General Family Practice 08/08/24
--- OUTSIDE RECORDS SUMMARY | 2025-08-08 15:16 | XMS_ITS | Encounter Summary ---
Author Organization [facility] Address [address] [place] [address] Care Team Providers Care Arts And Sciences Dean Name Role Phone Giuliano Isbell MD Primary Care Provider [phone] Encounter Details Date Type Department Care Team (Late st Contact Info) Description 03/15/2025 Orders Only [facility] Health Information Management [address] [place] [id number] Scanning, Provider Social History Tobacco Use Types Packs/Day Years Used Date Smoking Tobacco: Every Day Cigarettes 1 55.7 Started: 1971 Passive Smoke Exposure: Current Smokeless Tobacco: Never Alcohol Use Standard Drinks/Week Comments No 0 (1 standard drink = 0.6 oz pur e alcohol) [facility] Utilities Answer Date Recorded In the past 12 months has [employer], oil, or water [employer] threatened to shut off services in your [...] week 03/01/2025 How often do you attend [facility] or mormonism services? Patient unable to answer 03/01/2025 Do you belong to any clubs o r organizations such as synagogue groups, unions, fraternal or athletic groups, or [...] Date Recorded PHQ-2 Total Score 0 03/01/2025 [facility] Occupat ional Health - Occupational Stress [...] any time in the past 12 m [facility], were you homeless or living in a group home (including now)? No 03/01/2025 Personal Safety Answer [...] on file Legal Sex Male 6:28 PM RN POSTPARTUM Gender Identity Not on file Sexual Orientation [...] on filedocumented in this encounter Care Teams Arts And Sciences Dean Relationship Specialty Start Date End Date Giuliano Isbell MD [address] [place] [address] PCP - General Family Medicine 07/13/23 documented as of this encounter
--- OUTSIDE RECORDS SUMMARY | 2025-08-08 15:16 | XMS_ITS | Encounter Summary ---
Author Organization [facility] Address [address] [place] [address] Care Team Providers Care Chief Controller Tower Name Role Phone Giuliano Ibsell MD Primary Care Provider [phone] Encounter Details Date Type Department Care Team (Late Contact Info) Description 08/07/2025 Orders Only [facility] Oncology and Hematology [facility] [address] [place] [address] Prem Yang MD [facility] [employer] [address] [place] [phone] Social History Tobacco Use Types Packs/Day Years Used Date Smoking Tobacco: Every Day Smokeless Tobacco: Never Alcohol Use Standard Drinks/Week Comments Yes 0 (1 standard drink = 0.6 oz pur e alcohol) Sex and Gender Information Value Date Recorded Sex Assigned at Not on file Legal Sex Male 9:18 AM CDT Gender Identity Not on file Sexual Orientation Not on file documented as of this encounter Plan of Treatment Upcoming Encounters Date Type Department Care Team (Late Contact Info) Description 08/15/2025 4:30 PM CDT Telephone Check Up [facility] Oncology and Hematology [place] [address] [place] [address] rPem Yang MD [address] [employer] [address] [place] [phone] documented as of this encounter Procedures Procedure Name Priority Date/Time Associated Diagnosis Comments COMPREHENSIVE METABOLIC PANEL Routine 08/04/2025 12:59 PM CDT COMPREHENSIVE METABOLIC PANEL Routine 08/04/2025 12:50 PM CDT documented in this encounter Results * COMPREHENSIVE METABOLIC PANEL (08/04/2025 12:59 PM CDT) Blood us Prem Yang MD CHEMISTRY ORDERABLES Final Resu lt * COMPREHENSIVE METABOLIC PANEL (08/04/2025 12:50 PM CDT) Blood us Prem Yang MD CHEMISTRY ORDERABLES Final Resu lt documented in this encounter Visit Diagnoses Not on filedocumented in this encounter Care Teams Chief Controller Tower Relationship Specialty Start Date End Date Giuliano Isbell MD [address] [place] [phone] PCP - General Family Practice 08/08/24 documented as of this encounter
[2025-08-08 16:33] LABS: Iron 49 ug/dL (49-181)
[2025-08-08 16:42] LABS: Percent Iron Saturation 11 % (20-50)
[2025-08-08 17:13] LABS: Ferritin 36.40 ng/mL (11.1-264)
== END 2025-08-08 13:36 | disposition home or self-care (01) ==
LOC: ANHLAB 13:35
PROVIDERS: PCP Emergency Medicine; Visit Provider Internal Medicine Hematology & Oncology
DX: D64.9 Anemia, unspecified (principal)
CPT/HCPCS: 36415; 82728; 83540; 83550

== ENCOUNTER 2025-09-05 15:20 | Outpatient (CLI) | payer MEDICARE, SELFPAY ==
--- NOTE | ~2025-09-05 | US_ITS ---
ULTRASOUND ABDOMEN LIMITED (RIGHT UPPER QUADRANT) Clinical History: cirrhosis, nonalcoholic Comparison: Ultrasound 03/16/2025 CT chest abdomen pelvis 03/12/2025 Technique: Right upper quadrant sonography Findings: Liver: Nodular surface. Enlarged. Coarse echotexture. No discrete hepatic mass. No intrahepatic biliary ductal dilatation. Normal hepatopedal flow main portal vein. Common Duct: Normal caliber. 5 mm. Gallbladder: Distended. Stones. No wall thickening. No pericholecystic fluid. Pancreas: Obscured by bowel gas. No ascites noted. IMPRESSION: 1. No acute findings. 2. Cirrhosis. No discrete hepatic mass. 3. Gallstones. Reviewed, dictated and finalized at location R.
--- OUTSIDE RECORDS SUMMARY | 2025-09-05 17:02 | XMS_ITS | Encounter Summary ---
Author Organization [facility] Address [address] [place] [address] Phone Care Team Providers Care Architect Naval Name Role Phone Giuliano Isbell MD Primary Care Provider [phone] Encounter Details Date Type Department Care Team (Late st Contact Info) Description 03/18/2025 Orders Only [facility] Scanning, Provider Social History Tobacco Use Types Packs/Day Years Used Date Smoking Tobacco: Every Day Cigarettes 1 55.8 Started: 1971 Passive Smoke Exposure: Current Smokeless Tobacco: Never Alcohol Use Standard Drinks/Week Comments No 0 (1 standard drink = 0.6 oz pur e alcohol) [facility] Utilities Answer Date Recorded In the past 12 months has [employer] gas, oil, or water [employer] threatened to shut off services in your [...] week 03/01/2025 How often do you attend [facility] or rastafarian services? Patient unable to answer 03/01/2025 Do you belong to any clubs o r organizations such as mandaeism groups, unions, fraternal or athletic groups, or [...] Date Recorded PHQ-2 Total Score 0 03/01/2025 [facility] of Occupat ional Health - Occupational [...] time in the past 12 m [facility], were you homeless or living in a chcf (including now)? 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 Gender Identity Not on file Sexual Orientation Not on file documented as of this encounter Plan of Treatment Not on file documented as of this encounter Procedures Procedure Name Priority Date/Time Associated Diagnosis Comments SCAN - RADIOLOGY/IMAGING 03/18/2025 documented in this encounter Results * SCAN - RADIOLOGY/IMAGING (03/18/2025) Anatomical Region Laterality Modality Other us Provider Scanning Final Result documented in this encounter Visit Diagnoses Not on filedocumented in this encounter Care Teams Architect Naval Relationship Specialty Start Date End Date Giuliano Isbell MD [address] [place] [address] PCP - General Family Medicine 07/13/23 documented as of this encounter
--- OUTSIDE RECORDS SUMMARY | 2025-09-05 17:02 | XMS_ITS | Clinical Summary ---
Author Organization [facility] Address [address] [place] [address] Care Team Providers Care Salad Counter Attendant Name Role Phone AnaEnmanuel DO Unavailable Cholo Mcmahon MD Primary Care Provider [phone] Source Comments [facility],non-owned Affiliates and Associated Physician Practices is amultiple site organization consisting of ambulatory clinics and hospital sitesin [place], [place], [place] and [place]. This disclosure is being madepursuant to the Care Everywhere program and may not contain all information available regarding this patient. Last updated 18.[facility] Allergies Active Allergy Reactions Criticality Noted Date [...] pen 2 Active ergocalciferol (DRISDOL) 1.25 MG (25390 UT) capsule Take 1 (one) capsule by mouth every 7 days Active Cholecalcifero l 25 MCG (1000 UT) Take 1 (one) tablet by mouth once daily Active ferrous sulfate 325 (65 FE) MG tablet Take 1 (one) tablet by mouth once daily Active Multiple Vitamins-Compo als (HM COMPLETE MEN PO) Active B [...] Tobacco use 09/16/2021 Hyperlipidemia 10/17/2020 Atherosclerosis of [place] co ronary artery of [place] heart with unstable angina pectoris 08/31/2019 Overview (07/25/2022): CAD (coronary artery disease) Added automatically from request for surgery [id number] Calculus of gallbladder without cholecystitis Chest pain [...] 01/26/1995 Immunizations Immunization Administration Dates Next Due [employer] primary monoval ent 12+ yr 0.3mL Purple [...] on file Legal Sex Male 3:35 PM TIP PUNCHER Gender Identity Not on file Sexual Orientation Not on file Last Filed Vital Signs Vital Sign Reading Time Taken Comments Blood Pressure 145/97 11/28/2022 10:43 AM TIP PUNCHER Pulse 81 11/28/2022 10:43 AM TIP PUNCHER Temperature 36.3 C (97.4 F) 11/28/2022 10:43 AM TIP PUNCHER Respiratory Rate - - Oxygen Saturation 96% 11/28/2022 10: 43 AM TIP PUNCHER Inhaled Oxygen Concentration - - Weight 116.4 kg (256 lb 9.6 oz) 023 10:43 AM TIP PUNCHER Height 182.9 cm (6') 11/28/2022 10:43 AM TIP PUNCHER Body Mass Index 34.8 11/28/2022 10:43 AM TIP PUNCHER Plan of Treatment Health Maintenance Due Date [...] Comments HEMOGLOBIN A1C Routine 11/28/2022 12:30 PM TIP PUNCHER Neuropathy from Last 3 Months or Most Recently Relevant to Health Maintenance Results * (ABNORMAL) HEMOGLOBIN A1C (11/28/2022 12:30 PM TIP PUNCHER) Hemoglobin A1c 6.2(H) <=5.6 % 11/28/2022 3:11 PM TIP PUNCHER [facility] Estimated Average Glucose 131 mg/dL 11/28/2022 3:11 PM [facility] Comment: HbA1c Interpretation: Normal : < 5.7% Pre-diabetes: 5.7-6.4% Diabetes: Equal to or greater than 6.5% Test results diagnostic of diabetes should be repeated for confirmation. Treatment target values recommended by ADA and other clinical organizations should be used to evaluate metabolic control in patients. Reference: [place] Diabetes Association, Standards of Care in Diabetes -2020 In patients 70 years and older consider HbA1c target range of 7.0-7.5% (Reference: Nghia Summers et al. JAMDA. 2012) The Sebia assay for the measurement of HbA1c is a National Glycohemoglobin Standardization Program (NGSP) certified method. Blood BLOOD SPECIMEN / Unknown Lab Venipuncture / Unknown 11/28/2022 12:30 PM TIP PUNCHER 11/28/2022 1:19 PM TIP PUNCHER Tarsha Fairchild MD LAB - CHEMISTRY ORDERABLES Final Result Performing Organization Address City/State/[facility] Co de Phone Number [facility] [address] [place] [address], [facility] [phone] from Last 3 Months or Most Recently Relevant to Health Maintenance Insurance MEDICAID - OUT OF STATE [facility] MANAGED MEDICARE ADV [facility] MANAGED MEDICARE ADV [place] [facility] MANAGED MEDICARE ADV [place] [facility] MANAGED MEDICARE ADV [place] [facility] MANAGED MEDICARE ADV [place] [facility] MANAGED MEDICARE ADV [place] [facility] MANAGED MEDICARE ADV Care Teams Salad Counter Attendant Relationship Specialty Start Date End Date Cholo Mcmahon MD [address] [place] [address] PCP - General 08/14/21 Enmanuel Perez DO Orthopedic Surgery 01/25/13
--- OUTSIDE RECORDS SUMMARY | 2025-09-05 17:02 | XMS_ITS | Clinical Summary ---
Author Organization [facility] Address [address] [place] [address] Care Team Providers Care Insulation Inspector Name Role Phone Unavailable Primary Care Provider [...] Vaccine ( - 2023-2 5 season) 2025 Influenza Adult (#1) 2025 RSV Immunization or 60+ Years (1 [...]
--- OUTSIDE RECORDS SUMMARY | 2025-09-05 17:02 | XMS_ITS | Clinical Summary ---
Author Organization [facility] [place] [address] Address [address] [place] [address] Care Team Providers Care Job Coaching Name Role Phone Giuliano Isbell MD Primary Care Provider [phone] Allergies Active Allergy Reactions Criticality Noted Date Comments Penicillins Unknown 03/12/2025 Medications nitroglycerin (NITROSTAT) 0.4 mg SL tablet [...] nebulizer solutionIndicat ions:Pulmonary emphysema, unspecified emphysema type Take 3 mL (2.5 mg total) by [...] the skin every morning 05/18/20 24 Active lancets 33 gauge misc Use to check blood sugar twice daily 200 each 4 10/03/20 24 Active blood glucose diagnostic strip Use to test blood glucose 2 times daily DX E11.65, Z79.4 200 strip 4 10/03/20 24 Active blood-glucose meter misc Use to check blood glucose twice daily 1 each 10/03/20 24 Active tiotropium bromide (SPIRIVA RESPIMAT) 2.5 mcg/actuation inhalerIndicati ons:Centrilobul ar emphysema Inhale 2 puffs daily 1 each 11 12/21/19 25 026 Active albuterol HFA (PROVENTIL HFA,VENTOLIN HFA,PROAIR HFA) 90 mcg/actuation inhalerIndicati ons:Centrilobul ar emphysema Inhale 2 puffs every 6 (six) hours as needed for wheezing or shortness of breath 1 each 12/21/19 25 Active sildenafiL (VIAGRA) 50 mg tablet Take 1 tablet (50 mg total) by mouth daily 03/26/20 25 Active HYDROcodone-darrin taminophen (NORCO) 10-325 mg per tablet Take 1 tablet by mouth 3 (three) times a day as needed 03/24/20 25 Active insulin lispro protamine-insul in lispro 75/25 (HumaLOG 75/25 100 unit/mL) 100 unit/mL pen for injection Inject 40 Units under the skin 2 (two) times a day after breakfast and dinner (Total daily dose- 80 units) E11.65 75 mL 4 04/06/20 25 Active clopidogreL (PLAVIX) 75 mg tablet Take 1 tablet (75 mg total) by mouth daily 04/25/20 25 Active spironolactone (ALDACTONE) 100 mg tablet Take 1 tablet (100 mg total) by mouth daily 04/24/20 25 Active furosemide (LASIX) 40 mg tabletIndicatio ns:Systolic congestive heart failure, unspecified HF chronicity (HCC) Take 0.5 tablets (20 mg total) by mouth daily 30 tablet 3 05/10/20 25 Active alcohol swabs pads, medicated Use to clean site where injecting insulin twice daily 200 each 4 08/24/20 25 Active pen needle, diabetic 31 gauge x 1/4 needle Use to inject insulin twice daily 200 each 4 08/24/20 25 Active allopurinoL (ZYLOPRIM) 300 mg tablet Take 1 tablet (300 mg total) by mouth every morning 025 Discontin ued(Patie nt Reported) alcohol swabs pads, medicated Use to clean site where injecting insulin twice daily 200 each 4 10/03/20 24 025 Discontin ued(Reord er) OLANZapine (ZyPREXA) 10 mg tablet Take 1 tablet (10 mg total) by mouth nightly 30 tablet 03/02/20 25 025 Discontin ued(Patie nt Reported) pantoprazole DR (PROTONIX) 40 mg EC tabletIndicatio ns:GI Bleed Take 1 tablet (40 mg total) by mouth 2 (two) times a day 60 tablet 03/02/20 25 025 Discontin ued(Patie nt Reported) Silvadene 1 % cream Apply topically every 12 hours 04/04/20 25 025 Discontin ued(Patie nt Reported) pen needle, diabetic 31 gauge x 1/4 needle Use to inject insulin twice daily 200 each 4 04/06/20 25 025 Discontin ued(Reord er) Active Problems Problem Noted Date Diagnosed Date [...] Information given regarding [place] [employer] line: 0-748-[id number]-YES for free services - 6 minutes spent discussing cessation He has tried many nicotine replacement therapies but gives many reasons why he does not want to quit at this time Repeat CT chest as above Assessment & Plan (12/21/2024 2:23 PM TIMBER ROBBER): - Smoking cessation counseling and techniques reviewed at length - Avoid triggers and use distraction techniques - Information given regarding [place] [employer]uit line: 5-243-TPNW-YES for free services - 5 minutes spent [...] 07/15/2023 Cirrhosis, nonalcoholic 07/13/2023 Assessment & Plan (08/10/2025 6:31 PM CDT): Decompensated by history though appears reasonably stable today with no obvious evidence of hepatic synthetic dysfunction or complications of portal hypertension. It is unclear to me if he has had recent imaging. He told me he had an ultrasound at [facility] within the week. I will have my staff call to see if there are results of imaging studies and labs. I saw no reason to change his current medications. He will return in 1 year or when clinically indicated. Assessment & Plan (02/25/2024 6:00 PM CDT): [...] Lasix Assessment & Plan (01/02/2023 2:48 PM TIMBER ROBBER): Diagnosed around 2017 On insulin since diagnosis [...] prescribed. Assessment & Plan (01/02/2023 2:38 PM TIMBER ROBBER): With history of CAD - continue Lipitor [...] Cardiology Assessment & Plan (12/21/2024 2:21 PM TIMBER ROBBER): Continue aspirin, carvedilol, clopidogrel, Entresto, and furosemide I recommend close follow-up with Cardiology I will have staff request a recent echocardiogram Cardiomyopathy, ischemic 11/21/2019 Atherosclerosis of [place] co ronary artery of [place] heart with unstable angina pectoris 08/31/2019 Overview (08/31/2019): Added automatically from request for surgery [id number] Calculus of gallbladder without cholecystitis Chest pain [...] care Assessment & Plan (12/21/2024 2:18 PM TIMBER ROBBER): He will restart Spiriva Respimat 2.5 two [...] tis Assessment & Plan (12/21/2024 2:20 PM TIMBER ROBBER): He has been well-controlled on as needed therapy Elevate head of bed while sleeping Avoid trigger foods No eating 2-3 hours before bed Anxiety Resolved Problems Problem Noted Date Diagnosed Date Resolved Date Melena 02/19/2025 05/16/2025 Dyslipidemia 08/10/2019 04/06/2025 Encounters Date Type Department Care Team Description 08/29/2025 2:30 PM CDT Office Visit [facility] Diabetes Endocrine Care at [address] [address] Ramya Francisco, FATOU Type 2 diabetes mellitus with stage 2 chronic kidney disease, with long-term current use of insulin (HCC) (Primary Dx); Primary hypertension; Mixed diabetic hyperlipidemia associated with type 2 diabetes mellitus (HCC); Class 1 obesity due to excess calories with serious comorbidity and body mass index (BMI) of 30.0 to 30.9 in adult 08/25/2025 Telephone [facility] [address] [facility] [address] [place] [address] [place] [address] Ana Coughlin 08/11/2025 Telephone [facility] [address] [facility] [address]th [place] [address] [place] [address] Skip Lugo MD Test Results 08/11/2025 Telephone [facility] [address] [facility] [address]th [place] [address] [place] [address] Shreya Vieira Test Results 08/10/2025 3:20 PM CDT Office Visit [facility] [address] [facility] [address] [place] [address] [place] [address] Skip Lugo MD Cirrhosis, nonalcoholic (HCC) (Primary Dx) 08/10/2025 Telephone [facility] [address] [facility] [address] [place] [address] [place] [address] Shreya Vieira 08/08/2025 Orders Only [facility] Scanning, Provider 07/06/2025 3:00 PM CDT Office Visit [facility] Pulmonary at [address] [place] [address] Velia Alonso, FATOU Centrilobular emphysema (HCC) (Primary Dx); Streptococcus pneumoniae; Chronic systolic congestive heart failure (HCC); Cigarette nicotine dependence without complication 06/20/2025 Telephone [facility] [address] [facility] [address] [place] [address] Aaron Gutierrez MD from Last 3 Months [...] drink = 0.6 oz pur e alcohol) [facility] Utilities Answer Date Recorded In the past 12 months has e electric, gas, oil, or water [employer] threatened to shut off services in your [...] week 03/01/2025 How often do you attend [facility] or roman catholic services? Patient unable to answer 03/01/2025 Do you belong to any clubs o r organizations such as buddhist groups, unions, fraternal or athletic groups, or [...] Date Recorded PHQ-2 Total Score 0 03/01/2025 [facility] - Occupational [...] any time in the past 12 m [facility], were you homeless or living in a detention (including now)? No 03/01/2025 Personal Safety Answer [...] on file Legal Sex Male 6:28 PM TIMBER ROBBER Gender Identity Not on file Sexual Orientation Not on file Obstetrics History Last Filed Vital Signs Vital Sign Reading Time Taken Comments Blood Pressure 110/50 08/29/2025 2:45 PM CDT Pulse 77 08/10/2025 3:10 PM CDT Temperature 36.5 C (97.7 F) 08/10/2025 3:10 PM CDT Respiratory Rate 18 07/06/2025 2:57 PM CDT Oxygen Saturation 98% 07/06/2025 2:57 PM CDT Inhaled Oxygen Concentration - - Weight 108.8 kg (239 lb 14.4 oz) 08/29/2025 2:45 PM CDT Height 182.9 cm (6') 08/29/2025 2:45 PM CDT Body Mass Index 32.54 08/29/2025 2:45 PM CDT Plan of Treatment Health Maintenance [...] Additional history exists Influenza Vaccine (#1) 2025 4, 08/08/2023, 09/12/2022, Additional history exists Depression Screening 02/19/2026 02/19/2025 Lipid Panel 02/20/2026 02/20/2025, 08/0 07/2022, 06/12/2017 Hemoglobin A1C 02/27/2026 08/29/2025, 03/3 11/2024, 02/19/2025, Additional history exists eGFR 03/01/2026 03/01/2025, 04/0 06/2025, 02/27/2025, Additional history exists Fall Risk Assessment 03/02/2026 03/02/2025 Albumin Creatinine Ratio, Urine 04/05/2026 5, 07/01/2022 Abdominal Aortic Aneurysm (A AA) Screen Completed 03/20/2022 Zoster Vaccine Completed 09/12/2022, 11/23, 09/03/2021 Pneumococcal vaccine 65+ Completed 023, 10/03/2022, 08/21/2021, Additional history exists Hepatitis C Screening Completed 02/22/2025 , 02/20/2025, 07/13/2023 Medical Devices Implanted Type Area Dumper Device Identifier Shelf Expiration Date Model / Serial / Lot [employer] [id number] Angio-Seal Evolution 6fr .035in Guidewire Bypass Tube Suture - [id number] Implanted:Qty : 1 on 09/08/2019 by Shan Mcignnis MD at [facility] Other - see comments [employer] 04/22/2020 [id number] / / [id number] Cardiac Stent X4 Implanted:Qty : 4 N/A: Heart Description: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 Procedures Procedure Name Priority Date/Time Associated Diagnosis Comments POCT HEMOGLOBIN A1C Routine 08/29/2025 2:47 PM CDT Type 2 diabetes mellitus with stage 2 chronic kidney disease, with long-term current use of insulin (HCC) POCT GLUCOSE Routine 08/29/2025 2:45 PM CDT Type 2 diabetes mellitus with stage 2 chronic kidney disease, with long-term current use of insulin (HCC) SCAN - LABS 08/08/2025 ALBUMIN CREATININE RATIO, URINE Routine 04/05/2025 3:06 PM CDT Type 2 diabetes mellitus with hyperglycemia, with long-term current use of insulin (HCC) EGFR Routine 03/01/2025 8:13 PM CDT HEPATITIS C ANTIBODY Routine 02/22/2025 6:21 AM CDT LIPID PANEL STAT 02/20/2025 8:[address] CHEST WO CONTRAST F/U LUNG SCREEN PROTOCOL Schedule Routine, Read Routine (OP Routine) 11/12/2022 4:29 PM TIMBER ROBBER Lung nodule DIABETIC EYE EXAM Routine 01/22/2022 from Last 3 Months or Most Recently Relevant to Health Maintenance Results * (ABNORMAL) POCT hemoglobin A1c (08/29/2025 2:47 PM CDT) Pathologist [facility] Hemoglobin A1C, POC 6.4(A) 4.0 - 5.6 % Blood 08/29/2025 2:47 PM CDT Ramya Francisco [employer] POINT OF CARE TEST ORDERABLES F inal Result * POCT glucose (08/29/2025 2:45 PM CDT) Pathologist [facility] Glucose Blood, POC 178 Normal Fasting 70 - 100, Random <200 mg/dL Blood 08/29/2025 2:45 PM CDT Ramya Francisco NP POINT OF CARE TEST ORDERABLES F inal Result * SCAN - LABS (08/08/2025) us Provider Scanning Edited Result - Final * Albumin Creatinine Ratio, Urine (04/05/2025 3:06 PM CDT) [facility] Albumin Ur <12.0 mg/L Comment: Interpretive Data No reference range established. Current interpretive data was last revised 2019. Testing performed by: [address] [address] Creatinine Ur 17.8 mg/dL [facility] Comment: Interpretive Data No reference range established. Current interpretive data was last revised 2019. Testing performed by: [address] [address] Albumin Creatinine Ratio, Ur See Comment 1 - 29 [facility] Comment: Unable to calculate Testing performed by: [address] [address] Urine 04/05/2025 3:06 PM CDT 04/05/2025 8:15 PM CDT us Ramya Francisco [employer] LAB URINE ORDERABLES Final Resu lt [facility] [address] Department [place] [address] * eGFR (03/01/2025 8:13 PM CDT) eGFR [...] ORDERABLES Final Res ult Performing Organization Address City/[facility]/ZIP Co de Phone Number [facility] Department [place] [address] * Hepatitis C antibody Blood (02/22/2025 6:21 AM CDT) Hep C Ab Nonreactive Nonreactive Comment:Antibodies to HCV no t detected. Does NOT exclude the possibility of recent exposure to HCV. Current interpretive data was last revised on 22 Blood 02/22/2025 6:21 AM CDT 02/22/2025 7:57 AM CDT us Hood Pacheco MD LAB MICROBIOLOGY - GENERAL ORDER MICHELLE Final Result [facility] Department [place] [address] * (ABNORMAL) Lipid panel (02/20/2025 8:49 AM [...] on 2018. Triglycerides 131 <=149 mg/dL [facility] Comment: Interpretive Data Ages < or = [...] on 2018. HDL 21(L) >=40 mg/dL [facility] Comment: Interpretive Data Ages < or = [...] on 2018. LDL, calculated 43 <=129 mg/dL [facility] Comment: Interpretive Data Ages < or = [...] on 2024. Non-HDL Cholesterol 67 mg/dL [facility] Comment: Interpretive Data Ages < or [...] revised on 2018. Chol/HDL ratio 4 [facility] Blood 02/20/2025 8:49 AM CDT 02/20/2025 9:26 AM CDT Narrative [facility] - 02/20/2025 4:02 PM CDT Reflex us Hood Pacheco MD LAB BLOOD ORDERABLES Final Resul t [facility] Department [place] [address] * CT Chest WO Contrast F/U Lung Screen Protocol (11/12/2022 4:29 PM TIMBER ROBBER) Anatomical Region Laterality Modality Chest N/A Computed Tomogra phy 11/13/2022 8:38 AM TIMBER ROBBER Narrative 11/13/2022 8:47 AM TIMBER ROBBER EXAM DESCRIPTION: CT CHEST WO CONTRAST F/U [...] by More Greenwood M.D. TW: Report ID: [id number] [place] Location: [place] [address] Procedure Note More Greenwood MD - 11/13/2022 [...] More Greenwood M.D. TW: CASSIE Report ID: [id number] [place] Location: [place] [address] Sami Campbell MD IMG CT PROCEDURES Final Result * Diabetic Eye Exam (01/22/2022) Historical Provider HEALTH MAINTENANCE Final Result from Last 3 Months or Most Recently Relevant to Health Maintenance Insurance [facility] MEDICARE ADVANTAGE MEDICARE ADVANTAGE MEDICARE ADVANTAGE Advance Directives For more information, please contact: [phone] * Full Code (Latest Code Status on File) Date Activated Date Inactivated Comments 02/20/2025 1:29 PM 03/02/2025 8:05 PM * Full Code Date Activated Date Inactivated Comments 09/08/2019 2:14 PM 09/08/2019 9:30 PM Care Teams Job Coaching Relationship Specialty Start Date End Date Giuliano Isbell MD [address] [place] [address] PCP - General Family Medicine 07/13/23
--- OUTSIDE RECORDS SUMMARY | 2025-09-05 17:02 | XMS_ITS | Data Portability ---
Author Organization [place] [facility] [employer], Main Office Address [address] [place] [address] Care Team Providers Care Client Leader Name Role Phone FERNANDO MENARD Primary Care Provider FERNANDO MENARD Referring Provider Assessment Encounter Date Assessment Date Assessment LastModified by Organization Details LastModified Time 03/30/2023 03/30/2023 68-year-old male presenting for evaluation of bilateral shoulders. He has had pain for about 30 years. He has reportedly had many accidents and injuries, and especially recently has been getting worse. He has pain and limited range of motion. He is right-hand dominant. He currently smokes a pack a day. Review of systems per patient questionnaire Physical exam: He has diffuse tenderness palpation over the bilateral shoulders. He has limited range of motion bilaterally with pain. 5/5 rotator cuff strength. Neurovascular intact throughout. He has previous healed incisions over his bilateral upper extremities. X-rays of bilateral shoulders were obtained reviewed, demonstrating tjct-ry-ihno glenohumeral arthritis bilaterally. He is unable take anti-inflammatori es because of medication interactions. We offered him cortisone injections for shoulder, combined with physical therapy. In order for PT was given. We also discussed the importance of smoking cessation, including the fact that if down the road if he requires surgery for joint replacement, he would need to be off of nicotine. He would also need optimization of his medical comorbidities. We will see him back in 4-6 weeks after his course of therapy. Not available 03/30/2023 11:11:42 07/06/2023 07/06/2023 68-year-old male presents for follow-up of his bilateral shoulders. He still reports pain in his bilateral shoulders, located more over his shoulder blades. He reports the injections last time were effective but wore off. He has not done physical therapy or done any other treatments for her shoulders. He has not cut back on his smoking. He has pain over his bilateral shoulders and also over his medial scapula bilaterally. He has elevation to 120 bilaterally. 5/5 rotator cuff strength. Neurovascular intact throughout. Previous x-rays reviewed, demonstrating evdr-yv-ggpi glenohumeral arthritis bilaterally. We will order a course of meloxicam and physical therapy. We will continue conservative management. We discussed smoking cessation once again. He inquired about whether he would be able to throw like he did 50 years ago, and we advised him that was not a realistic expectation. He also described several other issues, including problems with his spine, and we offered him a referral to a peer specialist as we do not take care of that, and he declined. He will follow up as needed. Not available 07/06/2023 12:49:59 10/03/2024 10/03/2024 69-year-old male presents for follow-up of his bilateral shoulder osteoarthritis. At his last visit, we recommend he take anti-inflammatori es and do physical therapy. He did not do either of those. He got another opinion from a different orthopedic surgeon, who recommended surgery, but he said he did not want to do that either. Now he complains of increasing pain, rated as 10/10. He has difficulty with sleeping. He is still smoking 1 pack a day. He is on clopidogrel. He has pain over his bilateral shoulders and also over his medial scapula bilaterally. He has elevation to 120 bilaterally. 5/5 rotator cuff strength. Neurovascular intact throughout. X-rays were reviewed, demonstrating severe osteoarthritis of the glenohumeral joint I would still recommend that he do physical therapy and use anti-inflammatori es. Given his blood thinner use, we will have him use topical Voltaren gel. He may follow up as needed. Not available 10/04/2024 21:47:30 Plan of Treatment Reminders Order Date Submit Date Provider Last Modified By Organization Details Last Modified Time Details Appointments None recorded. Lab None recorded. Referral physical therapist referral - Please contact pt to schedule for kyler shoulders. Thanks [address] [facility] [place], [address] [place], [address], 4 08:24:47 physical therapist referral - Please contact pt to schedule apt for Kyler shoulders. Thanks 2022 023 [facility]HE[facility] [place], [address] [place], [address], 3 15:40:41 physical therapist referral - Please contact pt to schedule apt for kyler shoulders. thanks 2022 023 [facility] Physical [facility], [address] [place], [address], 3 23:12:23 Procedures injection/ aspiration joint/burs a (PROC) - in office procedure, administer ed by provider 2022 023 [email or web address] 1 In-Office Order, Internal Use Only DO Not Attach Compendium DO Not Attach Compendium, Do Not Delete/merge, [id number] 10:41:52 Surgeries None recorded. Imaging XR, shoulder, 2 or more view 2023 024 [facility], [address] [place] [address], [address], [place], [address], 4 22:06:08 Medication Orders Mobic 15 mg tablet 2022 023 [id number], [address] [place], [place], [id number], 4 11:19:41 Kenalog 10 mg/mL suspension for injection 2022 023 [email or web address] [id number], [address] [place], [place], [id number], 4 11:19:34 ropivacain e (PF) 5 mg/mL (0.5 %) injection solution 2022 023 [id number], [address] [place], [id number], 10:49:11 Patient TargetsNo targets recorded. Patient InstructionsNo instructions recorded. Reason for Referral Physical Therapist Referral for Bilateral shoulder joint pain kyler shoulder Please contact pt to schedule apt for kyler shoulders. thanks Referring Physician: Rush Overton, Orthopedic Surgery, Encounter Date: 03/30/2023 Physical Therapist Referral for Bilateral shoulder joint pain Kyler shoulders Please contact pt to schedule apt for Kyler shoulders. Thanks Referring Physician: Rush Overton Orthopedic Surgery, Encounter Date: 07/06/2023 Physical Therapist Referral for Bilateral shoulder joint pain Kyler shoulders Please contact pt to schedule for kyler shoulders. Thanks Referring Physician: Rush Overton Orthopedic Surgery, Encounter Date: 10/03/2024 Results Created Date Observation Date Name Description Value Unit Range Abnormal Flag Note LastModifiedBy Organization Detail LastModifiedTime 06/04/20 21 06/04/2021 HEMOG LOBIN A1C HA1C 10.4 % 4.0-6. 0 high Diabe warner Scree nimesh Crite madie: <5.7% Consi stent with absen ce of diabe warner 5.7-6 .4% Consi stent with incre ased risk for diabe warner (pred iabet es) >OR=6 .5% Consi stent with diabe warner REFER ENCE: Diabe warner Care 2016, 39(Echols ppl.1 ):s13 -s22 Not Available [facility] ([facility]) [address] [place], [address], 06/04/2021 21:49:45 05/29/2005/29/2021 binh francis am No observ ation record ed. [email or web address].[id number] [facility] [address] , [place], [address], 01/21/2023 13:15:12 05/30/2005/29/2021 elect antwan francis am No observ ation record ed. MIGRATION. [id number] [facility] [address] , [place], [address], 01/21/2023 13:15:12 08/08/20 21 08/08/2021 imagi ng/di agnos tic resul t No observ ation record ed. MIGRATION. [id number] [facility] [address] [place], [address], 01/21/2023 13:15:12 08/14/20 21 08/14/2021 imagi ng/di agnos tic resul t No observ ation record ed. MIGRATION. [facility] [address] [place], [address], 01/21/2023 13:15:12 10/24/20 21 XR, knee No observ ation record ed. MIGRATION. _[facility] [address] [place], [address], 01/21/2023 13:15:12 10/03/20 24 XR, shoul chely, 2 or more view No observ ation record ed. [email or web address] [facility] [address] [facility], [address], [place], [address], 10/03/2024 12:14:36 Result Notes None recorded. Problems Name Problem SNOMED Code Status Onset Date Resolution Date Notes Provider Name and Address Organization Details Recorded Time Coronary arterioscl erosis 31463997 Active 2016 Not Available [facility] 3 13:13:12 Pain of joint 47747020 Active 2016 Not Available [facility] 3 13:13:13 Diabetes mellitus 45160079 Active 2016 Not Available [facility] 3 13:13:13 Gout 45752560 Active 2016 Not Available [facility] 3 13:13:13 Chronic obstructiv e pulmonary disease 26950585 Active 2016 Not Available [facility] 3 13:13:12 Paranoid disorder 942383514 Active 2017 Not Available [facility] 3 13:13:12 Bilateral shoulder joint pain 1329423176529 9104 Active 2022 Yvrose An, ATC L null, [employer] 3 10:08:35 Problem Notes None recorded. Procedures Surgical History Date Name Laterality Status Provider Name and Address Organization Details Recorded Time 3 Ortho - Cortisone Injection completed Rush Overton MD [address] [place] [address], [address], [employer] 03/30/2023 10:51:37 Imaging Results None recorded. Procedure Notes None recorded. Medical Equipment None Reported. Allergies No known drug allergies Medications Name Sig Start Date Stop Date Status Note LastModified by Organization Details LastModified Time magnesium citrate soln lemon 296ml TAKE BY MOUTH ONCE DIRECTED 10/03 completed Not Available Not Available Not Available BD Alcohol Swabs Use to swab skin prior to insulin injection 03/30 completed Not Available Not Available Not Available carvedilol 6.25 mg tablet TAKE 1 TABLET BY MOUTH EVERY 12 HOURS TAKE WITH SNACK / FOOD active Not Available Not Available No t Available doxycycline hyclate 100 mg capsule Take 1 capsule twice a day by oral route for 7 days. 03/30 completed Not Available Not Available Not Available benztropine 0.5 mg tablet 02/07 completed Not Available Not Available Not Available clindamycin HCl 300 mg capsule 01/26 completed Not Available Not Available Not Available albuterol sulfate 2.5 mg/3 mL (0.083 %) solution for nebulizatio n TAKE 3ML VIA NEBULIZER EVERY 4 HOURS NEEDED FOR WHEEZING 09/30 completed Not Available Not Available Not Available atorvastati n 10 mg tablet TAKE 1 TABLET BY MOUTH DAILY active Not Available Not Available No t Available Pneumovax-2 3 25 mcg/0.5 mL injection solution 12/06 completed Not Available Not Available Not Available azithromyci n 250 mg tablet TAKE 2 TABLETS BY MOUTH FOR 1 DAY THEN TAKE 1 TABLET BY MOUTH DAILY FOR 4 DAYS 10/03 completed Not Available Not Available Not Available tizanidine 4 mg tablet active Not Available Not Available Not Available benzonatate 200 mg capsule Take 1 capsule 3 times a day by oral route as needed for 10 days. active Not Available Not Available No t Available hydrocodone 5 mg-acetamin ophen 325 mg tablet TAKE 1 TABLET BY MOUTH EVERY 6 HOURS NEEDED FOR PAIN 09/30 completed Not Available Not Available Not Available prednisone 20 mg tablet TAKE 3 TABLETS BY MOUTH EVERY DAY 09/30 completed Not Available Not Available Not Available isosorbide mononitrate ER 30 mg tablet,exte nded release 24 hr 1 po qday 10/24 completed Not Available Not Available Not Available Lantus U-100 Insulin 100 unit/mL subcutaneou s solution 12/06 completed Not Available Not Available Not Available hydroxyzine pamoate 50 mg capsule 02/07 completed Not Available Not Available Not Available topiramate 25 mg tablet 03/26 completed Not Available Not Available Not Available hydroxyzine HCl 50 mg tablet Take 1 tablet 3 times a day by oral route as needed. 02/07 completed Not Available Not Available Not Available melatonin 3 mg tablet Take 1 tablet as needed by oral route at bedtime for 90 days. 02/07 completed Not Available Not Available Not Available acetaminoph en 300 mg-codeine 30 mg tablet Take 1 tablet every 6 hours by oral route as needed. 09/30 completed Not Available Not Available Not Available clopidogrel 75 mg tablet TAKE 1 TABLET BY MOUTH DAILY active Not Available Not Available No t Available dextrometho rphan-guaif enesin 10 mg-100 mg/5 mL oral syrup Take 10 mL every 4 hours by oral route as needed. 02/07 completed Not Available Not Available Not Available ciprofloxac in 500 mg tablet active Not Available Not Available Not Available sulfamethox azole 800 mg-trimetho prim 160 mg tablet TAKE 1 TABLET BY MOUTH EVERY 12 HOURS active Not Available Not Available No t Available hydrocodone 10 mg-acetamin ophen 325 mg tablet TAKE 1 TABLET BY MOUTH TWICE DAILY NEEDED active Not Available Not Available No t Available peg-electro lyte solution 420 gram oral solution MIX INSTRUCTE D AT NOON PUT IN FRIDGE THEN AT 3PM DRINK 8OZ EVERY 15 MINUTES UNTIL ALL TAKEN. COMPLETE WITHIN 4 HOURS 10/03 completed Not Available Not Available Not Available omeprazole 40 mg capsule,del ayed release Take 1 capsule(s ) every day by oral route. 07/01 completed Not Available Not Available Not Available aspirin 81 mg tablet,girma yed release Take 1 tablet every day by oral route. 03/30 completed Not Available Not Available Not Available tramadol 50 mg tablet 01/26 completed Not Available Not Available Not Available risperidone 3 mg tablet 02/07 completed Not Available Not Available Not Available triamcinolo ne acetonide 0.1 % topical cream APPLY A THIN LAYER TO THE AFFECTED AREA(S) BY TOPICAL ROUTE 2 TIMES PER DAY 02/07 completed Not Available Not Available Not Available lithium carbonate ER 450 mg tablet,exte nded release 1 po qday 03/10 completed Not Available Not Available Not Available simvastatin 40 mg tablet 1 po qhs 02/07 completed Not Available Not Available Not Available ondansetron 8 mg disintegrat ing tablet Place 1 tablet 3 times a day by transling ual route as needed. active Not Available Not Available No t Available lamotrigine 25 mg tablet 02/07 completed Not Available Not Available Not Available ketorolac 10 mg tablet Take 1 tablet 3 times a day by oral route as needed. 05/25 completed Not Available Not Available Not Available risperidone 2 mg tablet 02/07 completed Not Available Not Available Not Available Mobic 15 mg tablet Take 1 tablet every day by oral route. 09/30 completed Not Available Not Available Not Available citalopram 20 mg tablet 1 po qday 02/07 completed Not Available Not Available Not Available tamsulosin 0.4 mg capsule Take 1 capsule every day by oral route. active Not Available Not Available No t Available Kenalog 10 mg/mL suspension for injection Take 10 mg by injection route. 09/30 completed [facility]: [phone] Not Available Not Available Not Available hydrocodone 7.5 mg-acetamin ophen 325 mg tablet TAKE 1 TABLET BY MOUTH EVERY 6 HOURS NEEDED FOR PAIN 10/03 completed Not Available Not Available Not Available cephalexin 500 mg capsule TAKE 1 CAPSULE BY MOUTH EVERY 12 HOURS 09/30 completed Not Available Not Available Not Available pantoprazol e 40 mg tablet,girma yed release TAKE 1 TABLET BY MOUTH DAILY 10/03 completed Not Available Not Available Not Available divalproex ER 500 mg tablet,exte nded release 24 hr 02/07 completed Not Available Not Available Not Available lidocaine 5 % topical patch APPLY 1 PATCH TOPICALLY TO THE SKIN EVERY DAY. MAY WEAR UP TO 12 HOURS active Not Available Not Available No t Available promethazin e 25 mg tablet TAKE 1/2 TABLET BY MOUTH EVERY 6 HOURS NEEDED FOR NAUSEA 09/30 completed Not Available Not Available Not Available indomethaci n 50 mg capsule TAKE ONE CAPSULE BY MOUTH THREE TIMES DAILY NEEDED active Not Available Not Available No t Available nitroglycer in 0.4 mg sublingual tablet DISSOLVE ONE TABLET UNDER TONGUE NEEDED FOR CHEST PAIN EVERY 5 MINUTES UP TO 3 TABLETS 10/03 completed Not Available Not Available Not Available gabapentin 300 mg capsule TAKE 1 CAPSULE BY MOUTH EVERY 8 HOURS. 09/30 completed Not Available Not Available Not Available omeprazole 20 mg capsule,del ayed release 02/07 completed Not Available Not Available Not Available diclofenac sodium 75 mg tablet,girma yed release Take 1 tablet twice a day by oral route for 30 days. active Not Available Not Available No t Available allopurinol 300 mg tablet TAKE 1 TABLET BY MOUTH EVERY DAY active Not Available Not Available No t Available lisinopril 5 mg tablet 1 po qday 10/24 completed Not Available Not Available Not Available diclofenac sodium 50 mg tablet,girma yed release Take 1 tablet twice a day by oral route for 30 days. active Not Available Not Available No t Available furosemide 20 mg tablet TAKE 1 TABLET BY MOUTH DAILY active Not Available Not Available No t Available gabapentin 100 mg capsule 04/09 completed Not Available Not Available Not Available metoprolol succinate ER 25 mg tablet,exte nded release 24 hr 02/07 completed Not Available Not Available Not Available lorazepam 1 mg tablet 03/26 completed Not Available Not Available Not Available levofloxaci n 500 mg tablet TAKE 1 TABLET BY MOUTH EVERY 24 HOURS 10/03 completed Not Available Not Available Not Available methylpredn isolone 4 mg tablets in a dose pack FOLLOW PACKAGE DIRECTION S 09/30 completed Not Available Not Available Not Available sertraline 50 mg tablet 02/07 completed Not Available Not Available Not Available risperidone 1 mg tablet 02/07 completed Not Available Not Available Not Available doxycycline hyclate 100 mg tablet TAKE 1 TABLET BY MOUTH TWICE DAILY 10/03 completed Not Available Not Available Not Available dicyclomine 10 mg capsule Take 1 capsule 4 times a day by oral route as needed 03/30 completed Not Available Not Available Not Available olanzapine 20 mg tablet Take 1 tablet every day by oral route. active Not Available Not Available No t Available lamotrigine 100 mg tablet Take 1 tablet every day by oral route. 12/06 completed Not Available Not Available Not Available naproxen 500 mg tablet Take 1 tablet twice a day by oral route as needed. active Not Available Not Available No t Available Microlet Lancet 12/06 completed Not Available Not Available Not Available amoxicillin 875 mg-potassiu m clavulanate 125 mg tablet Take 1 tablet every 12 hours by oral route for 7 days. active Not Available Not Available No t Available Ventolin HFA 90 mcg/actuati on aerosol inhaler Inhale 2 puffs every 4 hours by inhalatio n route as needed. 12/06 completed Not Available Not Available Not Available hydroxyzine pamoate 25 mg capsule Take 1 capsule every 8 hours by oral route as needed for 30 days. active Not Available Not Available No t Available Novolog Mix 70-30 FlexPen U-100 Insulin 100 unit/mL subcutaneou s pen ADM 35 UNI SC BID (per DMB) 03/30 completed Not Available Not Available Not Available divalproex ER 250 mg tablet,exte nded release 24 hr 02/07 completed Not Available Not Available Not Available rosuvastati n 5 mg tablet 02/07 completed Not Available Not Available Not Available rosuvastati n 10 mg tablet Take 1 tablet every day by oral route. 12/06 completed Not Available Not Available Not Available metoprolol tartrate 25 mg tablet 1 po bid 02/07 completed Not Available Not Available Not Available duloxetine 30 mg capsule,del ayed release 03/30 completed Not Available Not Available Not Available duloxetine 60 mg capsule,del ayed release TAKE 1 CAPSULE BY MOUTH EVERY DAY 11/08 /2024 completed Not Available Not Available Not Available Accu-Chek Mel Control Soln solution 12/06 completed Not Available Not Available Not Available pregabalin 75 mg capsule 1 po bid 03/30 completed Not Available Not Available Not Available ranolazine ER 500 mg tablet,exte nded release,12 hr 03/30 completed Not Available Not Available Not Available varenicline tartrate 1 mg tablet Take 1 tablet twice a day by oral route. 09/30 completed Not Available Not Available Not Available varenicline tartrate 0.5 mg tablet 09/30 completed Not Available Not Available Not Available Symbicort 160 mcg-4.5 mcg/actuati on HFA aerosol inhaler Inhale 2 puffs twice a day by inhalatio n route. 12/06 completed Not Available Not Available Not Available Lantus Solostar U-100 Insulin 100 unit/mL (3 mL) subcutaneou s pen Inject 10 units every day by subcutane ous route. 12/06 completed Not Available Not Available Not Available Humalog Mix 75-25 KwikPen U-100 insulin 100 unit/mL subcutaneou s pen ADMINISTE R 40 UNITS UNDER THE SKIN TWICE DAILY AFTER BREAKFAST AND DINNER active Not Available Not Available No t Available fenofibrate 54 mg tablet 1 po qday 10/24 completed Not Available Not Available Not Available febuxostat 40 mg tablet TAKE 1 TABLET BY MOUTH EVERY DAY 10/03 completed Not Available Not Available Not Available Invega Sustenna 156 mg/mL intramuscul ar syringe once per month 02/07 completed Not Available Not Available Not Available Invega Sustenna 234 mg/1.5 mL intramuscul ar syringe 02/07 completed Not Available Not Available Not Available ropivacaine (PF) 5 mg/mL (0.5 %) injection solution Take 20 mg by injection route. 07/01 completed [facility] [phone] Not Available Not Available Not Available Comfort EZ Pen [place] 31 gauge x 1/4 USE WITH INSULIN INJECTION TWICE DAILY active Not Available Not Available No t Available Accu-Chek FastClix Lancing Device 12/06 completed Not Available Not Available Not Available Chantix Starting Month Box 0.5 mg (11)-1 mg (42) tablets in dose pack take as directed 01/26 completed Not Available Not Available Not Available TRUEplus Lancets 33 gauge 07/01 completed Not Available Not Available Not Available True Metrix Glucose Test Strip test TID dx e11.9 07/01 completed Not Available Not Available Not Available True Metrix Glucose Meter 07/01 completed Not Available Not Available Not Available colchicine 0.6 mg capsule TAKE 1 CAPSULE BY MOUTH TWICE DAILY NEEDED ONLY WITH GOUT FLARE UPS UNTIL PAIN RESOLVES 09/30 completed Not Available Not Available Not Available Spiriva Respimat 2.5 mcg/actuati on solution for inhalation Inhale 2 puffs every day by inhalatio n route. 07/01 completed Not Available Not Available Not Available Invega Trinza 819 mg/2.63 mL intramuscul ar syringe 02/07 completed Not Available Not Available Not Available Entresto 24 mg-26 mg tablet TAKE 1 TABLET BY MOUTH TWICE DAILY active Not Available Not Available No t Available True Metrix Air Glucose Meter kit 12/06 completed Not Available Not Available Not Available Fluarix Quad 0072-7064 (PF) 60 mcg (15 mcg x 4)/0.5 mL IM syringe 12/06 completed Not Available Not Available Not Available Fluarix Quad (PF) 60 mcg (15 mcg x 4)/0.5 mL IM syringe ADM 0.5ML IM UTD active Not Available Not Available No t Available OneTouch Delica Plus Lancet 30 gauge 09/30 completed Not Available Not Available Not Available Fluzone Quad (PF) 60 mcg (15 mcg x 4)/0.5 mL IM syringe 12/06 completed Not Available Not Available Not Available Fluzone High-Dose Quad (PF) 240 mcg/0.7 mL IM syringe ADM 0.7ML IM UTD 10/24 completed Not Available Not Available Not Available Vitals Date Recorded Body height Body mass index (BMI) Body weight Provider Name and Address Organization Details Last Updated DateTime 03/30/2023 182.88 cm 33.9 kg/m2 467928.09 g Yvrose An ATC L [place] [facility] [employer] 03/30/2023 10:14:15 Date Recorded Body height Body mass index (BMI) Body weight Provider Name and Address Organization Details Last Updated DateTime 07/06/2023 182.88 cm 33.2 kg/m2 196239.13 g Shima Tipton [facility] [employer] 07/06/2023 12:05:04 Date Recorded Body height Body mass index (BMI) Body weight Pain severity - 0-10 verbal numeric rating [Score] - Reported Provider Name and Address Organization Details Last Updated DateTime 10/03/2024 182.88 cm 33.9 kg/m2 837852.09 g Heike Cope [facility] [employer] 10/03/2024 12:09:27 Date Recorded Body height Provider Name an d Address Organization Details Last Updated DateTime 10/24/2021 180.34 cm Not Available [facility] 13:12:58 Social History Question Answer Notes LastModified by [employer] Details LastModified Time Tobacco Smoking Status Current Every Day Smoker Not Available [facility] 01/21/2023 13:12:42 What Is Your Level Of Caffeine Consumption? Moderate [id number] Information not available 01/21/2023 How Much Tobacco Do You Chew? None [id number] Information not available 01/21/2023 In The 14 Days Before Symptom Onset, Have You Had Close Contact With A Laboratory-confirm ed COVID-19 While That Case Was Ill? No [id number] Information not available 01/21/2023 In The 14 Days Before Symptom Onset, Have You Had Close Contact With A Person Who Is Under Investigation For COVID-19 While That Person Was Ill? No [id number] Information not available 01/21/2023 What Type Of Diet Are You Following? REGULAR [id number] Information not available 01/21/2023 What Was The Date Of Your Most Recent Tobacco Screening? 10/03/2024 [email or web address] Information not available 10/03/2024 How Much Tobacco Do You Smoke? 1 PPD [id number] Information not available 01/21/2023 Sex: Unknown Functional Status Question Answer Note LastModified by [employer] Details LastModified Time What is your level of alcohol consumption? Moderate [id number] Information not available 01/21/2023 Do you or have you ever used smokeless tobacco? Never used smokeless tobacco [id number] Information not available 01/21/2023 Do you or have you ever used e-cigarettes or vape? Never used electronic cigarettes [id number] Information not available 01/21/2023 What is your exercise level? Occasional [id number] Information not available 01/21/2023 Mental Status None recorded. Family History Relationship Description Onset Age of this Age Resolved Age Notes LastModified by Organization Details LastModified Time Son Heart disease [email or web address] Not available 2023 12:11:50 Notes:No prostate or colon c ancer Medical History Condition Response ARTHRITIS Y USE OF BLOOD THINNERS Y HEPATITIS / LIVER DISEASE Y HEART DISEASE/HEART PROBLEMS Y DIABETES, TYPE Y OSTEOPOROSIS Y GOUT Y LUNG DISEASE/DISORDER Y Immunizations Vaccine Type Date Status Note Provider Nam e and Address Organization Details Recorded Time SARS-COV-2 (COVID-19) vaccine, UNSPECIFIED 1 completed Not Available [facility] 01/21/2023 13:15:08 SARS-COV-2 (COVID-19) vaccine, UNSPECIFIED 1 completed Not Available [facility] 01/21/2023 13:15:08 pneumococcal polysaccharide PPV23 7 completed Not Available [facility] 01/21/2023 13:15:08 Influenza, split virus, quadrivalent, PF 7 completed Not Available [facility] 01/21/2023 13:15:08 Past Encounters Encounter ID Performer Location Encounter Start Date Encounter Closed Date Diagnosis/Indication Diagnosis SNOMED-CT Code Diagnosis ICD10 Code Diagnosis IMO Codes Diagnosis Note [id number] SHARMAINE Julian [address] [place] [address] 02/06/2021 00:00:00 02/06/2021 19:32:30 [id number] SHARMAINE Julian [address] [facility] [place] [address] 04/09/2021 00:00:00 04/09/2021 17:43:33 [id number] Itzel Puente MD [facility] Primary [address] [place] [address] 05/29/2021 00:00:00 05/29/2021 22:09:33 [id number] Itzel Puente MD [facility] Sergio montero [address] [facility] [address] [place] [address] 06/04/2021 00:00:00 06/10/2021 21:40:28 [id number] Sami Shaikh MD [facility] [address] [address] 10/24/2021 00:00:00 10/24/2021 13:34:48 [id number] Rush Overton MD [facility] [address] 03/30/2023 09:57:20 03/30/2023 10:55:41 Bilateral shoulder joint pain [id number] M25.511 M25.512 [id number] Rush Overton MD [facility] [address] 07/06/2023 12:03:12 07/06/2023 12:18:44 Bilateral shoulder joint pain [id number] M25.511 M25.273 [id number] Rush Overton [facility] [address] 10/03/2024 11:50:42 10/03/2024 12:38:27 Bilateral shoulder joint pain [id number] M25.511 M25.512 Health Concerns Section Related Observation LastModified by Organization Detai ls LastModified Time None Recorded Concern Status LastModified by Organization Details LastModified Time None Recorded Advance Directives Directive None Recorded Payers Insurance Date Sequence Insurance Name Policy Number Policy Mims Covered Member ID Mims Member ID Guarantor Name 11/07/2024 1 [facility] (MEDICARE REPLACEMENT/A DVANTAGE - PPO) [id number] Julius Campos [id number] Julius Campos 11/07/2024 2 [place] DEPARTMENT OF PUBLIC AID Julius Campos [id number] Julius Campos
--- OUTSIDE RECORDS SUMMARY | 2025-09-05 17:02 | XMS_ITS | Clinical Summary ---
Author Organization [facility] Júnior Vallejoalyssa Address [address] [place] [address] Care Team Providers Care Pre Coder Name Role Phone Giuliano Isbell MD Primary Care Provider [phone] Allergies No known active allergies Medications aspirin [...] Meter) True Metrix Glucose Meter Active Insulin [place] [facility], Disposable, (TRUEplus Pen Needle) 31 gauge x [...] mcg/0.7 mL Syringe syringe Fluzone High-Dose Quad 2020- (PF) 240 mcg/0.7 mL IM syringe ADM [...] Encounters Date Type Department Care Team Description 08/15/2025 4:30 PM CDT Telephone Check Up [facility] Oncology and Hematology [address] [place] [id number] Prem Yang MD Chronic anemia (Primary Dx) 08/10/2025 Orders Only [facility] Oncology and Hematology - [address] [place] [address] Prem Yang MD 08/08/2025 1:00 PM CDT Office Visit [facility] Oncology and Hematology - [address] [place] [address] Prem Yang MD Chronic anemia (Primary Dx) 08/08/2025 External Device Data STL ABSTRACTION Provider, Abstract 08/07/2025 Orders Only [facility] Oncology and Hematology - [address] [place] [address] Prem Yang MD 07/11/2025 External Device Data [...] Care Team (Late st Contact Info) Description 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 [employer] [address] [place] [address] Health Maintenance Due Date Last [...] 06/21/2025 06/21/2024 INFLUENZA VACCINE (#1) 2025 , 09/12/2022, 08/21/2021, Additional history exists COVID-19 Vaccine (3 - 2024-2 6 season) 2025 03/14/2021, 02/23/2021 DIABETES HBA1C Q 6 MONTHS 08/22/20252024, 02/19/2025, 06/21/2024, Additional history exists ZOSTER VACCINE Completed 09/12/2022, 11/23, 09/03/2021 PNEUMOCOCCAL VACCINE 50+ YEARS Completed 1 12/13/2022, 10/03/2022, 08/21/2021, Additional history exists Procedures Procedure Name Priority Date/Time Associated Diagnosis Comments IRON, TIBC, AND PERCENT SATURATION Routine 08/08/2025 11:37 AM CDT COMPREHENSIVE METABOLIC PANEL Routine 08/04/2025 12:59 PM CDT COMPREHENSIVE METABOLIC PANEL Routine 08/04/2025 12:50 PM CDT from Last 3 Months Results * IRON, TIBC, AND PERCENT SATURATION (08/08/2025 11:37 AM CDT) Blood us Prem Yang MD CHEMISTRY ORDERABLES Final Resu lt * COMPREHENSIVE METABOLIC PANEL (08/04/2025 12:59 PM CDT) Only the most recent of2 resultswithin the time period is included. Blood Prem Yang MD CHEMISTRY ORDERABLES Final Resu lt from Last 3 Months Insurance [facility] [address] Care Teams Pre Coder Relationship Specialty Start Date End Date Giuliano Isbell MD [address] [place], [place] [address] [place] [address] PCP - General Family Practice 08/08/24
--- OUTSIDE RECORDS SUMMARY | 2025-09-05 17:02 | XMS_ITS | Encounter Summary ---
Author Organization [facility] Healthcare Address [address] [place] [address] Care Team Providers Care Curriculum Coordinator Name Role Phone Giuliano Isbell MD Primary Care Provider [phone] Encounter Details Date Type Department Care Team (Late st Contact Info) Description 03/15/2025 Orders Only [facility] Information Management [address] [place] [address] Scanning, Provider Social History Tobacco Use Types Packs/Day Years Used Date Smoking Tobacco: Every Day Cigarettes 1 55.8 Started: 1971 Passive Smoke Exposure: Current Smokeless Tobacco: Never Alcohol Use Standard Drinks/Week Comments No 0 (1 standard drink = 0.6 oz pur e alcohol) [facility] Utilities Answer Date Recorded In the past 12 months has [employer], oil, or water [employer] threatened to shut off services in your [...] week 03/01/2025 How often do you attend [facility] or gnosticist services? 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
--- OUTSIDE RECORDS SUMMARY | 2025-09-05 17:02 | XMS_ITS | Encounter Summary ---
Author Organization 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
--- OUTSIDE RECORDS SUMMARY | 2025-09-05 17:02 | XMS_ITS | Encounter Summary ---
Author Organization [facility] Address [address] [place] [address] Phone Care Team Providers Care Surface Room Shop Optician Name Role Phone Giuliano Isbell MD Primary Care Provider Encounter Details Date Type Department Care Team (Late st Contact Info) Description 03/16/2025 Orders Only [facility] Scanning, Provider Social History Tobacco Use Types Packs/Day Years Used Date Smoking Tobacco: Every Day Cigarettes 1 55.8 Started: 1971 Passive Smoke Exposure: Current Smokeless Tobacco: Never Alcohol Use Standard Drinks/Week Comments No 0 (1 standard drink = 0.6 oz pur e alcohol) [facility] Utilities Answer Date Recorded In the past 12 months has [employer] gas, oil, or water [employer] threatened to shut off services in your [...] week 03/01/2025 How often do you attend [facility] or gnosticist services? Patient unable to answer 03/01/2025 Do you belong to any clubs o r organizations such as religious groups, unions, fraternal or athletic groups, or [...] Date Recorded PHQ-2 Total Score 0 03/01/2025 [facility] - Occupational [...] any time in the past 12 m [facility], were you homeless or living in a penitentiary (including now)? 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 Gender Identity Not on file Sexual Orientation Not on file documented as of this encounter Plan of Treatment Not on file documented as of this encounter Procedures Procedure Name Priority Date/Time Associated Diagnosis Comments SCAN - RADIOLOGY/IMAGING 03/16/2025 documented in this encounter Results * SCAN - RADIOLOGY/IMAGING (03/16/2025) Anatomical Region Laterality Modality Other us Provider Scanning Edited Result - Final documented in this encounter Visit Diagnoses Not on filedocumented in this encounter Care Teams Surface Room Shop Optician Relationship Specialty Start Date End Date Giuliano Isbell MD [address] [place] [address] PCP - General Family Medicine 07/13/23 documented as of this encounter
== END 2025-09-05 15:21 | disposition home or self-care (01) ==
PROVIDERS: PCP Emergency Medicine; Visit Provider Internal Medicine Gastroenterology
DX: K74.60 Unspecified cirrhosis of liver (principal); K80.20 Calculus of gallbladder without cholecystitis without obstruction
CPT/HCPCS: 76705

== ENCOUNTER 2025-10-09 17:27 | Outpatient (CLI) | payer MEDICARE, SELFPAY ==
[2025-10-09 18:40] LABS: Prostate Specific Antigen 0.1 ng/mL (< OR = 4.0)
== END 2025-10-09 17:28 | disposition home or self-care (01) ==
LOC: ANHLAB 17:29
PROVIDERS: PCP Emergency Medicine; Visit Provider Emergency Medicine
DX: Z12.5 Encounter for screening for malignant neoplasm of prostate (principal)
CPT/HCPCS: 36415; 84153; G0103